=== PATIENT | female | born 1945 | race Caucasian/White ===

== ENCOUNTER → 2017-08-19 10:22 | Outpatient (CLI) | payer MEDICARE, SELFPAY ==
--- NOTE | 2017-08-19 10:26 | HPBI_ITS ---
MAMMOGRAPHY - BILATERAL SCREENING REASON FOR EXAM: Female, 71 years old. Routine annual screening examination. PERTINENT HISTORY: Sister with breast cancer. Aunt with breast cancer. Remote left excisional breast biopsy. TECHNIQUE: Digital bilateral breast darling (3D mammographic acquisition) in the CC and MLO projections. 2-D mediolateral oblique (MLO) and craniocaudad (CC) views of both breasts were obtained. CAD: Full Field Digital Mammography with Computer Added Detection was performed. COMPARISON: Comparison is made with prior study dated September 06, 2015 and April 14, 2014. FINDINGS: Breast Composition: There are scattered areas of fibroglandular density. There now is evidence of a 1.2 cm x 1.4 cm spiculated nodular density in the upper slightly lateral portion of the right breast. Amorphous calcifications are seen within this nodule. Correlation with ultrasound is recommended. The remainder of the examination is unchanged. No other significant abnormalities are identified. HPBI/SCREENING MAMM (CAD), BILAT IMPRESSION: New spiculated nodular density in the right breast as described. Correlation with ultrasound is recommended. Following ultrasound, a biopsy would be recommended. ASSESSMENT CATEGORY: BIRADS Category 0: Incomplete. Need additional imaging evaluation. A letter regarding these results will be sent to the patient by the facility within 30 days. Approximately 10% of breast cancers are not detected by mammography. A normal mammogram should not delay biopsy of a clinically suspicious abnormality. [id number] Electronically Signed: Yared Chan MD at 12:24 EST Tel [phone], Service support ,
== END ==
PROVIDERS: Family Provider Internal Medicine; PCP Internal Medicine; Visit Provider Internal Medicine
DX: Z12.31 Encounter for screening mammogram for malignant neoplasm of breast (principal)
CPT/HCPCS: 77063; 77067

== ENCOUNTER → 2017-08-20 10:48 | Outpatient (CLI) | payer MEDICARE, SELFPAY ==
--- NOTE | 2017-08-20 10:53 | US_ITS ---
STUDY: ULTRASOUND BREAST - right REASON FOR EXAM: Female, 71 years old. Abnormal screening mammogram. TECHNIQUE: Axial and longitudinal images of the right breast were performed with a high resolution ultrasound transducer. COMPARISON: Comparison is made with prior mammogram dated August 19, 2017. FINDINGS: Right Breast: There is a 1.1 cm x 0.9 cm x 0.9 cm hypoechoic spiculated nodule at 11:00 position breast at 3 cm from the nipple. Calcifications are seen within it. A biopsy is recommended. Adjacent to this, there is a 4 mm x 4 mm x 3 mm cyst. US/Breast Limited Unilateral IMPRESSION: The mammographic abnormality corresponds to a hypoechoic irregular nodule. A biopsy is recommended for further evaluation. ASSESSMENT CATEGORY: BIRADS Category 4: Suspicious - Biopsy Should Be Considered. A letter regarding these results will be sent to the patient by the facility within 30 days. Electronically Signed: Yared Chan MD at 12:09 EST Tel [phone], Service support ,
== END ==
LOC: USHP 10:51
PROVIDERS: Family Provider Internal Medicine; PCP Internal Medicine; Visit Provider Internal Medicine
DX: N63.10 Unspecified lump in the right breast, unspecified quadrant (principal)
CPT/HCPCS: 76642

== ENCOUNTER → 2017-09-03 10:13 | Outpatient (CLI) | payer MEDICARE, SELFPAY ==
[2017-08-30 09:43] VITALS: BP 127/70; BMI 26.9
== END ==
PROVIDERS: Family Provider Internal Medicine; PCP Internal Medicine; Visit Provider Surgery
DX: Z53.8 Procedure and treatment not carried out for other reasons (principal)

== ENCOUNTER → 2017-09-12 09:30 | Outpatient (CLI) | payer MEDICARE, SELFPAY ==
--- NOTE | 2017-09-12 | IMM_PTH ---
PATIENT: ALLISON MAHER LOC: U#:[id number] AGE/SX: 79/F ROOM: RE09/12/[address]: Dr. Khalif Shell MD : 1945 BED: DIS: SPEC #: [id number] RECD: 09/13/17 13:28 STATUS: ZEV REAna #: [id number] KEAGAN: 09/12/17 00:[address]: Khalif Shell DEPT: IMMUNOHISTOCHEMISTRY RECD BY: Chiqui Cancino ENTERED: 09/13/17 13:29 SP TYPE: IMMUNO OTHR DR: Dr. Jessica Aguero DO Tissues: Right breast, NOS Procedures: CK5-6 (add) CK8 (add) E-CAD (add) HER2 ALBERTINA (add) KI-67 (add) P53 (add) IA (add) ER (initial) PHYSICIAN & INSTITUTION [place] [address] SPECIMEN INFORMATION: Tissue Source: Right breast nodule Clinical Info: Right breast nodule Specimen Number: [id number] CPT code: 93438, 04900 x4, 04403 x3 METHODOLOGY: Deparaffinized sections of prefer/formalin-fixed tissue or PAP/DQ stained slides are incubated with monoclonal/polyclonal antibodies/oligonucleotide probes. Localization is made via biotin free immunoperoxidase method. Appropriate controls are performed and reacted as expected. Results on target cell population are indicated in the following table: RESULTS: ANTIBODY / CLONE RESULT E-Cad (ECH-6) positive CK8 ([id number]) positive CK5-6 (D5 & 1684) negative Ki-67 (30-9) positive, low P53 (DO-7) negative MORPHOMETRIC ANALYSIS ER (clone 6F11) >95%, strong IA (clone 16/1E2) 21%, moderate Her-2Neu (clone CB11) 1+ The prognostic test for HER2 is performed on formalin-fixed paraffin embedded tissue. A 3+ (positive) staining pattern is defined as intense, homogeneous, complete, circumferential membranous staining in >10% of contiguous tumor cells. A similar weak (2+) staining pattern is interpreted as equivocal. QUINCY follow-up testing is recommended for all equivocal cases. Positivity/negativity for ER/IA is reported if > or < 1% of the tumor cells are immuno- reactive, respectively. The ASCO/CAP criteria is used for scoring. Reference: Journal of Clinical Oncology, 2013; 31:1946-1561 & 2010; 16:4982-2313. Duration of fixation: 8.5 Hrs; Sample Adequate: Yes. These assays have not been validated on decalcified tissues. Results should be interpreted with caution given the likelihood of false negativity on decalcified specimens. These tests were developed and their performance characteristics determined by [facility]. They may not have been cleared or approved by the U.S. Food and Drug Administration. The FDA has determined that such clearance or approval is not necessary. INTERPRETATION: Right breast nodule, biopsy: Invasive ductal carcinoma, nuclear grade 2. Positive for estrogen receptors (favorable prognostic indicator). Positive for progesterone receptors (favorable prognostic indicator). Negative for overexpression of OVZ7srp. SJ:alexis 09/16/17
--- NOTE | 2017-09-12 09:32 | US_ITS ---
STUDY: ULTRASOUND BREAST - RIGHT REASON FOR EXAM: Female, 71 years old. Ultrasound guided right breast biopsy. TECHNIQUE: Axial and longitudinal images of the RIGHT breast were performed with a high resolution ultrasound transducer. COMPARISON: Comparison is made with prior ultrasound of the breasts dated generally . FINDINGS: RIGHT Breast: Under direct sonographic guidance, the surgeon performed core biopsies of the hypoechoic irregular nodule measuring 1.2 cm x 1 cm and 0.8 cm at 11:00 breast at 3 cm from nipple. US/US Breast Biopsy 1st Lesion IMPRESSION: Successful ultrasound-guided core biopsy of the suspicious nodule at the 11:00 position breast at 3 cm from nipple. Electronically Signed: Yared Chan MD at 11:33 EST Tel [phone], Service support ,
--- NOTE | 2017-09-12 10:45 | BRBX_PTH ---
PATIENT: ALLISON MAHER LOC: U#:[id number] AGE/SX: 79/F ROOM: RE09/12/[address]: Dr. Khalif Shell MD : 1945 BED: DIS: SPEC #: [id number] RECD: 09/12/17 11:27 STATUS: ZEV LELAND #: [id number] KEAGAN: 09/12/17 10:[address]: Khalif Shell DEPT: SURGICAL PATHOLOGY RECD BY: Allen Foy ENTERED: 09/12/17 11:28 SP TYPE: BREAST BX OTHR DR: Dr. Jessica Aguero DO Tissues: Right breast, NOS Procedures: Surgery Specimen Level IV HEADER OPERATION: Breast biopsy, right PRE-OP DIAGNOSIS: Breast nodule, right TISSUE SUBMITTED: Breast nodule, right ISCHEMIC TIME: 60 seconds FIXATION TIME: 8.5 hours MICROSCOPIC DIAGNOSIS Right breast nodule, core biopsy: Invasive ductal carcinoma, nuclear grade 2 (0.8 cm in greatest length). YADIRA:alexis 09/13/17 COMMENT Immunohistochemistry ([id number]) supports the above diagnosis. ER/ME/Qnk6xlc studies are being performed on sections of tumor and the results from this study will be reported separately ([id number]). MICROSCOPIC DESCRIPTION Slides are reviewed. GROSS DESCRIPTION Received in fixative is one container labeled with the patient's name and designated right breast. The specimen consists of multiple fragments of callejas-yellow fibroadipose tissue that in aggregate measure 2.5 x 0.5 x 0.1 cm. The entire specimen is submitted in one cassette. / YADIRA:alexis 09/12/17 TC:0 CPT: 28998 ADDENDUM ADDENDUM ADDENDUM ADDENDUM ADDENDUM ADDENDUM ADDENDUM ADDENDUM 10/18/2017 14:55 ADDENDUM 10/18/2017 14:55 ADDENDUM 10/18/2017 14:55 ADDENDUM 10/18/2017 14:55 ADDENDUM 10/18/2017 14:55 An order for Oncotype testing was received from Dr. Spicer. This necessitated case review, block and slide selection by pathologist at [facility]. Breast Cancer Recurrence Score = 31 Results of the complete Oncotype testing ([facility] report) are viewable in EMR under: Reports - Pathology - Lab Pathology Report, Scanned.
--- NOTE | 2017-09-12 11:12 | PCM.OPRPT ---
Problem List (1) Abnormal finding on mammography Status: Acute Report of Operation Date of Procedure: 09/12/17 Pre-Operative Diagnosis: r92.8 abnormal mammogram to right breast Post-Operative Diagnosis: Same Surgery/Procedure Performed:: 27221 ultrasound-guided handheld mammotome breast biopsy to right breast Type of Anesthesia:: Local Description of Procedure: Patient's right breast was ultrasound in the upper outer quadrant. Lesion was identified. I prepped the breast with chlorhexidine. I injected local on the skin and under ultrasound guidance I injected local posterior to the lesion. A skin joon was made. Under ultrasound guidance I directed the hand-held mammotome needle posterior to the lesion. I took numerous biopsies of this lesion. Under ultrasound guidance I placed a small titanium clip. Sterile dressings were applied and the patient tolerated the procedure well. - Admit VTE Documentation VTE Present on Admission: No VTE Mechan Device Prophylaxis: None VTE Pharm Prophylaxis ordered?: No Reason prophylaxis not ordered:: Treatment Not Indicated
--- NOTE | 2017-09-12 11:16 | OP.PCM_ITS ---
Problem List (1) Abnormal finding on mammography Status: Acute Report of Operation Date of Procedure: 09/12/17 Pre-Operative Diagnosis: r92.8 abnormal mammogram to right breast Post-Operative Diagnosis: Same Surgery/Procedure Performed:: 33381 ultrasound-guided handheld mammotome breast biopsy to right breast Type of Anesthesia:: Local Description of Procedure: Patient's right breast was ultrasound in the upper outer quadrant. Lesion was identified. I prepped the breast with chlorhexidine. I injected local on the skin and under ultrasound guidance I injected local posterior to the lesion. A skin joon was made. Under ultrasound guidance I directed the hand-held mammotome needle posterior to the lesion. I took numerous biopsies of this lesion. Under ultrasound guidance I placed a small titanium clip. Sterile dressings were applied and the patient tolerated the procedure well. - Admit VTE Documentation VTE Present on Admission: No VTE Mechan Device Prophylaxis: None VTE Pharm Prophylaxis ordered?: No Reason prophylaxis not ordered:: Treatment Not Indicated
== END ==
PROVIDERS: Family Provider Internal Medicine; PCP Internal Medicine; Visit Provider Surgery
DX: R92.0 Mammographic microcalcification found on diagnostic imaging of breast (principal); N63.10 Unspecified lump in the right breast, unspecified quadrant
CPT/HCPCS: 19083; 88305; 88341; 88342

== ENCOUNTER 2017-09-25 07:12 | Day surgery (SDC) | payer MEDICARE, SELFPAY ==
[2017-09-25 07:40] VITALS: BP 125/67; PULSE 63; RESP 16; TEMP 36.4; O2SAT 100; BMI 27.1
[2017-09-25 08:01] LABS: Bedside Glucose 94 mg/dL (70-110)
--- NOTE | 2017-09-25 09:23 | PCM.OPRPT ---
Problem List (1) Encounter for screening for malignant neoplasm of colon Status: Acute Report of Operation Date of Procedure: 09/25/17 Pre-Operative Diagnosis: z12.11 screening colonoscopy Post-Operative Diagnosis: Same Surgery/Procedure Performed:: 04049 colonoscopy Type of Anesthesia:: MAC Anesthesiologist: Mario Garay Description of Procedure: Patient was brought into the endoscopy suite placed in the left lateral decubitus position. She was given graded anesthesia. Scope was inserted into the rectum and directed through the sigmoid colon, descending colon, transverse colon, ascending colon, to the cecum. Operative findings: 1. Cecum: Normal appearance no mass lesions normal ileocecal valve. 2. Ascending colon: Normal appearance no mass lesions. 3. Transverse colon: Normal appearance no mass lesions. 4. Descending colon: Normal appearance no mass lesions. Patient was noticed to have numerous diverticula 5. Sigmoid colon: Normal appearance no mass lesions. Patient was noted to have numerous diverticulum 6. Rectum: Normal appearance no mass lesions retroflexion did reveal a few internal hemorrhoids which were not actively bleeding. The scope was withdrawn digital rectal exam was performed showing no masses within her anus. The patient's prep was extremely poor. Significant amount of liquid as well as solid stool was located throughout the colon. Nevertheless I was able to get to the cecum however visualization of any polyps smaller than 6 mm would not have been obtained. Patient will need another colonoscopy in 5 years given the patient's prep being so poor. - Admit VTE Documentation VTE Present on Admission: No VTE Mechan Device Prophylaxis: None VTE Pharm Prophylaxis ordered?: No Reason prophylaxis not ordered:: Treatment Not Indicated
[2017-09-25 09:27] VITALS: BP 114/70; BP 125/67; PULSE 80; RESP 19; TEMP 36.6; O2SAT 98
[2017-09-25 09:32] VITALS: BP 105/69; BP 125/67; PULSE 75; RESP 17; O2SAT 98
[2017-09-25 09:37] VITALS: BP 118/53; BP 125/67; PULSE 67; RESP 16; O2SAT 97
[2017-09-25 09:42] VITALS: BP 110/60; BP 125/67; PULSE 63; RESP 16; TEMP 36.7; O2SAT 97
[2017-09-25 10:45] VITALS: BP 125/67
== END 2017-09-25 10:46 | disposition home or self-care (01) ==
LOC: EN 07:12 → AC 07:14
PROVIDERS: Family Provider Internal Medicine; PCP Internal Medicine; Visit Provider Surgery
PROC: 0DJD8ZZ Inspection of Lower Intestinal Tract, Via Natural or Artificial Opening Endoscopic (ICD-10-PCS; CPT 45378; principal; 2017-09-25 08:25)
DX: Z12.11 Encounter for screening for malignant neoplasm of colon (principal); K57.30 Diverticulosis of large intestine without perforation or abscess without bleeding; K64.8 Other hemorrhoids; E04.2 Nontoxic multinodular goiter; C50.919 Malignant neoplasm of unspecified site of unspecified female breast; D64.9 Anemia, unspecified; J45.909 Unspecified asthma, uncomplicated; I25.10 Atherosclerotic heart disease of native coronary artery without angina pectoris; J44.9 Chronic obstructive pulmonary disease, unspecified; K21.9 Gastro-esophageal reflux disease without esophagitis; E78.00 Pure hypercholesterolemia, unspecified; G47.30 Sleep apnea, unspecified; E66.9 Obesity, unspecified; I73.9 Peripheral vascular disease, unspecified; Z87.19 Personal history of other diseases of the digestive system; I10 Essential (primary) hypertension; E11.9 Type 2 diabetes mellitus without complications; M19.90 Unspecified osteoarthritis, unspecified site; Z78.0 Asymptomatic menopausal state; Z86.718 Personal history of other venous thrombosis and embolism; Z86.711 Personal history of pulmonary embolism; Z79.84 Long term (current) use of oral hypoglycemic drugs; Z79.899 Other long term (current) drug therapy
CPT/HCPCS: G0121; 82962; J7120; J1610

== ENCOUNTER 2017-10-02 13:56 | Observation (INO) | payer MEDICARE, SELFPAY ==
--- NOTE | 2017-09-25 07:22 | EKG12_ITS ---
Test Reason : PRE OP Blood Pressure : / mmHG Vent. 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
[2017-09-25 07:37] LABS: Hematocrit 38.3 % (37-47); Hemoglobin 12.4 g/dl (12.0-15.0); Mean Corp Hgb Conc 32.4 g/gl (32-36); Mean Corpuscular Hgb 29.7 pg (27.0-32.0); Mean Corpuscular Volume 91.6 fL (81-99); Mean Platelet Vol. 8.7 fl (6.2-12.0); Platelet Count 261 K/mm3 (150-450); RBC Distribution Width CV 12.9 % (11.6-14.6); RBC Distribution Width SD 42.3 fl (35.1-43.9); Red Blood Count 4.18 M/mm3 (4.2-5.4); White Blood Count 6.1 K/mm3 (4.4-11.0)
[2017-09-25 07:39] LABS: Scan Indicated on CBC? Y/N NO
[2017-09-25 08:00] LABS: Anion Gap 7 (5-15); BUN 17 mg/dL (7-18); BUN/Creat Ratio 28.1 RATIO (10-20); Calcium,Total 8.9 mg/dL (8.5-10.1); Chloride 107 mmol/L (98-107); EST Glomerular Filtration Rate 103 mL/min (>60); Est Glom Filt Rate - Afr Amer 125 mL/min (>60); Glucose 101 mg/dL (74-106); Potassium 3.5 mmol/L (3.5-5.1); Sodium Level 142 mmol/L (136-145)
[2017-09-25 09:01] LABS: Hemoglobin A1c 5.3 % (4.2-6.3)
[2017-10-01] VITALS (19 sets, daily range): BP systolic 104–138; BP diastolic 52–107; PULSE 65–78; RESP 14–18; TEMP 36.3–37.2; O2SAT 97–100; BMI 27.0
--- NOTE | 2017-10-01 | IMM_PTH ---
PATIENT: ALLISON MAHER LOC: MS2 U#:[id number] AGE/SX: 71/F ROOM: [facility] [id number] RE10/02/[address]: Dr. Khalif Shell MD : 1945 BED: 1 DIS: 10/03/2017 SPEC #: [id number] RECD: 10/03/17 11:28 STATUS: ZEV REQ #: [id number] KEAGAN: 10/01/17 00:[address]: Khalif Shell DEPT: IMMUNOHISTOCHEMISTRY RECD BY: Chiqui Cancino ENTERED: 10/03/17 11:29 SP TYPE: IMMUNO OTHR DR: Dr. Jessica Aguero, DO Tissues: A - Axillary lymph node, NOS Procedures: CK7 (add) Pankeratin (initial) PHYSICIAN & INSTITUTION [place] [address] SPECIMEN INFORMATION: Tissue Source: A ? [place] nodes right breast Clinical Info: Malignant neoplasm right breast Specimen Number: [id number] CPT code: 82197, 26294 METHODOLOGY: Deparaffinized sections of prefer/formalin-fixed tissue or PAP/DQ stained slides are incubated with monoclonal/polyclonal antibodies/oligonucleotide probes. Localization is made via biotin free immunoperoxidase method. Appropriate controls are performed and reacted as expected. Results on target cell population are indicated in the following table: RESULTS: ANTIBODY / CLONE RESULT Block A1 AE1-3 (AE1/AE3/PCK26) negative CK7 (OV-TL12/30) negative These tests were developed and their performance characteristics determined by [facility]. They may not have been cleared or approved by the U.S. Food and Drug Administration. The FDA has determined that such clearance or approval is not necessary. INTERPRETATION: A. Right axillary sentinel lymph nodes, biopsy: Two out of two lymph noes, negative for metastatic carcinoma. SJ:alexis 10/04/17
--- NOTE | 2017-10-01 | AXNB_PTH ---
PATIENT: ALLISON MAHER LOC: MS2 U#:[id number] AGE/SX: 71/F ROOM: [facility] [place] RE10/02/[address]: Dr. Khalif Shell MD : 1945 BED: 1 DIS: 10/03/2017 SPEC #: [id number] RECD: 10/01/17 15:01 STATUS: ZEV REAna #: [id number] KEAGAN: 10/01/17 00:[address]: Khalif Shell DEPT: SURGICAL PATHOLOGY RECD BY: Chiqui Cancino ENTERED: 10/01/17 16:54 SP TYPE: AX NODE BX OTHR DR: Dr. Jessica Aguero, DO Tissues: Axillary lymph node, NOS Procedures: Frozen Section (charge) Surgery Specimen Level V HEADER OPERATION: Mastectomy, sentinel node, possible axillary node dissection PRE-OP DIAGNOSIS: Malignant neoplasm right breast TISSUE SUBMITTED: A ? [place] nodes right breast ? sent for frozen section, B ? Right breast FROZEN SECTION DIAGNOSIS A. Right axillary sentinel lymph nodes, biopsy: Two out of two lymph nodes, negative for carcinoma. AM:alexis 10/01/17 MICROSCOPIC DIAGNOSIS A. Right axillary sentinel lymph nodes, biopsy: Two out of two lymph nodes, negative for metastatic carcinoma. B. Right breast, mastectomy: Invasive ductal carcinoma. See cancer summary below. INVASIVE BREAST CANCER SUMMARY: Specimen ? total breast (including nipple and skin). Procedure ? total mastectomy (including nipple and skin). Lymph node sampling ? sentinel lymph nodes Specimen integrity ? single intact specimen Specimen laterality - right Tumor size ? 1.8 x 1.5 x 1.2 cm Tumor focality ? single focus of invasive carcinoma Macroscopic and Microscopic extent of tumor: Skin ? invasive carcinoma does not invade into the dermis or epidermis. Nipple ? ductal carcinoma in situ does not involve the nipple epidermis. Skeletal muscle ? no skeletal muscle present. 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 Extensive intraductal component (EIC) - negative Estimated size (extent) of DCIS - Ductal carcinoma in situ comprises <5% of the total tumor volume. It is present in the area of invasive ductal carcinoma. Number of blocks with DCIS - 2 Number of blocks examined - 12 Architectural pattern - solid Nuclear grade - 3 Necrosis ? not identified Lobular carcinoma in situ (LCIS) - not identified Histologic type of invasive carcinoma ? invasive ductal carcinoma (no special type) Histologic Grade (Humza grade): Glandular/tubular differentiation - score 3 Nuclear pleomorphism - score 3 Mitotic count ? score 1 Overall grade - 2 (score of 7) Margins: Margins uninvolved by invasive carcinoma and ductal carcinoma in situ. Invasive carcinoma and ductal carcinoma in situ are 0.5 cm away from the closest posterior margin. Treatment effect: Response to presurgical (neoadjuvant) therapy - no known presurgical therapy. Lymph-Vascular invasion ? not identified Dermal lymph-vascular invasion ? not identified Lymph nodes: Number of sentinel lymph nodes examined - 2 Total number of lymph nodes examined (sentinel and nonsentinel) - 2 Number of lymph nodes with macrometastases, micrometastases and isolated tumor cells - 0 Method of evaluation of sentinel lymph nodes - H & E, multiple levels and IHC. Distance metastasis ? not applicable Additional pathologic findings ? fibrocystic changes, adenosis and intraductal hyperplasia with atypia. Changes consistent with previous biopsy site. Ancillary studies - previously performed on section of tumor ([id number] / [id number]). ER ? positive (<95%, strong) FL ? positive (21%, moderate) Her2 meena ? negative (1+) Her2 by dual QUINCY ? not performed Microcalcifications ? present in non-neoplastic tissue Clinical history - Please make reference to previous specimen ([id number]) right breast nodule, core biopsy with diagnosis of invasive ductal carcinoma. PATHOLOGIC STAGE: pT1c pN0(sn) Mx The above summary is in compliance with [employer] [place] [employer] (CAP) Cancer Protocols Checklist and [place] Joint Committee on Cancer (AJCC), Staging Manual, 8th Ed. SJ:alexis 10/03/17 COMMENT A. The lymph nodes are negative for metastatic carcinoma on multiple H & E levels and immunohistochemical stains for cytokeratins ([id number]). MICROSCOPIC DESCRIPTION Slides are reviewed. GROSS DESCRIPTION A - Received fresh for frozen section consultation labeled with the patient's name is a specimen designated right breast sentinel lymph nodes. The specimen consists of two bluish-callejas ovoid fragments ranging in size from 0.5 to 1.1 cm in greatest dimension. The smaller nodule is inked in black ink. Both nodules are submitted in their entirety in one block for frozen section consultation. / AM:alexis 10/01/17 B - Received in fixative is one container labeled with the patient's name and designated right breast. The specimen consists of a mastectomy specimen measuring 30 x 28 x 4 cm and weighing 948 gm. The anterior portion contains an ellipse of unremarkable skin with nipple and areola. The skin measures 26 x 13 cm. The specimen is inked as follows: superior ? blue, inferior ? green and posterior ? black. Serial sections reveal a spiculated mass. The mass cuts with a gritty sensation and is white-callejas in color and measures 1.8 x 1.5 x 1.2 cm and is located 0.5 cm from the closest (posterior) margin of excision. The remainder of the breast parenchyma is callejas-yellow and interrupted focally by dense fibrous streaks. No other mass lesions are identified. Communication Center Coordinator sections are submitted as follows: 1 ? nipple, areola and perpendicular posterior margin, 2 ? perpendicular superior and inferior margins, 3 ? perpendicular medial margin, 4 ? perpendicular lateral margin, 5-8 ? tumor with #5 containing inked adjacent perpendicular posterior margin, 9-12 ? risk control field representative sections of uninvolved breast parenchyma. / AM:alexis 10/01/17 TC:0 CPT: 91183 x2, 39771
[2017-10-01 13:21] LABS: Bedside Glucose 90 mg/dL (70-110)
[2017-10-01] MEDS: Cefazolin 2 GM in 0.9% Normal Saline 100 ML IV (14:15)
--- NOTE | 2017-10-01 14:18 | PCM.OPRPT ---
Problem List (1) Malignant neoplasm of central portion of right female breast Status: Acute Qualifiers: Estrogen receptor status: positive Qualified Code(s): C50.111 - Malignant neoplasm of central portion of right female breast; Z17.0 - Estrogen receptor positive status [ER+] Report of Operation Date of Procedure: 10/01/17 Pre-Operative Diagnosis: c50.111 right breast cancer central breast. z17.0 estrogen receptor positive Post-Operative Diagnosis: Same Surgery/Procedure Performed:: 24900 injection of 5 cc of Lymphazurin blue. 52584 sentinel [place]. [address] mastectomy simple complete Type of Anesthesia:: General Anesthesiologist: Junior Shepherd Specimen's removed: 1. Right breast. 2. 2 sentinel lymph nodes (all negative) Estimated Blood Loss (mL): 50 cc Description of Procedure: Patient was brought into the operating room and placed in the supine position. Under excellent general endotracheal intubation 5 cc of Lymphazurin blue were injected circumareolar LEEP. The breast was massaged for 5 minutes then sterilely prepped and draped. Elliptical incision was made on the breast. Flaps were created with the plasma blade superior to the clavicle medially to the sternum inferiorly to the rectus abdominis muscle. I rotated the breast off the pectoralis major muscle with the plasma blade. I came to the lateral border of the pectoralis major muscle entered the clavipectoral fascia and dissected down until identified 2 blue lymph nodes. I remove these with a harmonic dissector and sent them to pathology for frozen section which confirmed lymph nodes both of them being benign. I remove the breast laterally down to the latissimus dorsi muscle and sent it to pathology for permanent sectioning. I irrigated out my wound I had excellent hemostasis I placed 215 round Aashish-Portillo drains into the wound suturing them to the skin with a 3-0 nylon. The flaps were then sutured together with deep dermal stitches of 3-0 Vicryl in a running 4-0 Monocryl. Steri-Strips are applied. Sterile dressings were applied. Eros wrap was applied. Patient tolerated the procedure well. - Admit VTE Documentation VTE Present on Admission: No VTE Mechan Device Prophylaxis: SCD's VTE Pharm Prophylaxis ordered?: No Reason prophylaxis not ordered:: Treatment Not Indicated
[2017-10-01] MEDS: Isosulfan Blue 1% 5 ML Vial (14:22)
[2017-10-01] MEDS: Lactated Ringers 1,000 ML 75 ML IV ×2 (16:52→21:03)
[2017-10-01 17:10] LABS: Bedside Glucose 80 mg/dL (70-110)
[2017-10-01] MEDS: HYDROmorphone PCA 0.2 MG/ML 100 ML BAG 20 MG IV (18:36)
[2017-10-01] MEDS: oxyCODONE 5 MG Tablet PO (21:03)
[2017-10-01] MEDS: Pravastatin 20 MG Tablet PO (22:10)
[2017-10-02] VITALS (14 sets, daily range): BP systolic 107–124; BP diastolic 50–61; PULSE 69–91; RESP 14–16; TEMP 36–37.6; O2SAT 95–100
[2017-10-02] MEDS: oxyCODONE 5 MG Tablet PO ×5 (01:13→21:04)
--- NOTE | 2017-10-02 07:28 | NURSING ---
Adrien DIRECTOR OF CHANNEL MARKETING d/c'd and wasted with MCKENNA Cho
--- NOTE | 2017-10-02 07:43 | PCM.DC.BS ---
Discharge Diet: No Restrictions Discharge Activity: May Not Drive - for 2-3 days or while taking narcotic pain meds. May shower in (days): 1 Lifting Restrictions: 10 pounds for 1 week. Call your doctor if your incision/area has: Continuous Slow Oozing, Sudden Increased Bleeding Call your doctor if you observe: Fever of 101 or Higher Suture Line Care: Avoid Pulling/Pushing, Avoid Pinching/Bending Remove Dressing in (days):: 1 - Remove bulky dressing tomorrow. May leave any opsite dressing for 3-4 days. Keep dressing in place until your follow-up appointment. Cleanse incision/area with: Keep Dressing Clean & Dry Additional Dressing/Incision Instructions:: Keep dressing in place until your follow-up appointment. Allergies/Adverse Reactions: Allergies niacin Allergy (Intermediate, Verified 09/23/17 13:18) Swelling Medications to take at Discharge Albuterol Aerosols [Ventolin Aerosols] 2.5 mg INHALATION Q4H PRN PRN 06/16/13 Albuterol IH (ProAir) [Proair Hfa] 2 puff INHALATION Q4H PRN PRN 06/16/13 Lisinopril/Hydrochlorothiazide [Zestoretic 05/02.5 Tablet] 1 tab PO DAILY 06/16/13 Omeprazole [Prilosec] 20 mg PO DAILY 06/16/13 Pravastatin [Pravachol] 20 mg PO QHS 06/16/13 Zolpidem Tartrate [Ambien Cr] 12.5 mg PO QHS PRN PRN 12/15/13 Hydrocodone Bitart/Apap 5-325 [[place] 5/325] 1 - 2 tab PO Q4H PRN PRN #30 tab 12/30/15 diltiazem CD 120 mg capsule,extended release 24 hr 120 mg PO QDAY cap 08/30/17 potassium chloride ER 10 mEq capsule,extended release 10 meq PO QDAY 08/30/17 Metformin HCl 1,000 mg PO DAILY 09/23/17 Oxycodone [Oxyir] 5 - 10 mg PO Q4H PRN PRN #30 tab 10/02/17 The following prescriptions were given: Oxycodone [Oxyir] 5 - 10 mg PO Q4H PRN PRN #30 tab PRN Reason: Pain Primary Care Physician: Jessica Aguero DO [Primary Care Provider] - Please Follow Up With: Romina Mendes PA-C - [phone] When: Saturday; 10/07 Please Follow Up With: Khalif Shell MD - [phone] When: Saturday; 10/09
--- NOTE | 2017-10-02 07:46 | PCM.PN.SRG ---
Patient Problems: Active and Suspected Problems (Last Reviewed 09/23/17 @ 09:40 by Khalif Shell MD) Malignant neoplasm of central portion of right female breast (Acute) Subjective: Patient was evaluated this morning resting comfortably in bed. She notes back pain/discomfort, however has a history of back pain. Patient notes some discomfort of the right upper chest. She notes she is hesitant to go home secondary to not having help. She denies nausea, vomiting. - Physical Exam General: Alert, Oriented x3, Cooperative Skin: Incision - Right mastectomy incision- c/d/i. Minimal amount of ecchymosis. No signs of infection or erythema noted. MARY drains intact. SA fluid noted Vital Signs Temp Pulse Resp BP Pulse Ox 98 F 91 16 111/61 99 10/02/17 06:00 10/02/17 06:00 10/02/17 06:00 10/02/17 06:00 10/02/17 06:00 Oxygen Flow Rate (L/min) 2 Oxygen Delivery Method Room Air Weight: 162 lb 4.163 oz Body Mass Index (BMI) 27.0 Finger Stick Blood Glucose 80 Intake and Output for Last 24 Hours 09/30/17 10/01/17 10/02/17 23:59 23:59 23:59 Intake Total 1500 / 1500 1531 / 1531 Output Total 80 / 80 1065 / 1065 Balance 1420 / 1420 466 / 466 POC Glucose 10/01/17 10/01/17 16:58 12:51 POC Glucose 80 90 Assessment/Plan Active and Suspected Problems (Last Reviewed 09/23/17 @ 09:40 by Khalif Shell MD) Malignant neoplasm of central portion of right female breast (Acute) I am following thi spatient in conjunction with Dr. Shell Impression: Right breast cancer. S/p right mastectomy with sentinel lymph node biopsy Consult case management for discharge planning Probable discharge today
[2017-10-02] MEDS: Lactated Ringers 1,000 ML 75 ML IV (10:07)
[2017-10-02] MEDS: Pantoprazole Sodium 20 MG Tablet PO (10:09)
[2017-10-02] MEDS: Lisinopril 10 MG Tablet PO (10:09)
[2017-10-02] MEDS: HYDROCHLOROTHIAZIDE 12.5 MG CAPSULE PO (10:09)
[2017-10-02] MEDS: dilTIAZem CD 120 MG Capsule PO (10:11)
[2017-10-02] MEDS: 0.9% NaCl Peripheral Flush Adult/Peds IV ×2 (10:19→16:07)
--- NOTE | 2017-10-02 13:49 | CASEMGMT ---
RN CM note. Pt lives alone. Attempted to speak with pt today. She is very sleepy and not feeling well. Deferred assessment. Per physician and nursing, pt may need HHS or SNF on dc. SW referral made for possible SNF. PT/OT ordered, were not able to complete assessment due to pt being sleepy this am. Pt receiving Oxyir 10 mg- 3 doses today. DC PLAN: undetermined @ this time. Huy LUCIO RN AC
--- NOTE | 2017-10-02 15:35 | CASEMGMT ---
Social Work Referral received as pt stating to physician that she does not believe she will be able to return home. SW met with pt and spouse Jose in room and introduced self and role of SW. Pt stating she is feeling sick and cannot talk to SW. Deferred conversation to . SW starting speaking with to assess home situation and pt would speak up and answer questions. Assessment limited as pt continuously stating she does not feel well. Pt lives at home with her spouse in a one story home. Pt would assist with showers but pt could complete all other ADLs and IADLs independently. Questioning pt if she feels she can return home. Pt does not answer but spouse stating they will wait until tomorrow to decide. SW explained that process needs to be started as insurance authorization does take some time. Provided list of area SNFS and pt does not want to look at this. He states she has been in [facility] before and would want to go back there. Pt confirmed this is correct. ALFONSO asked permission to call [facility] for bed availability and to make referral explaining that it can be cancelled if pt is feeling better tomorrow and is able to return home. Pt and are agreeable to this plan. Phone call to Symone at [facility]. They do have beds available. Referral faxed and will await determination if they can accept. SABI Salcido
[2017-10-02] MEDS: Ondansetron 4 MG/2 ML Vial IV (16:07)
[2017-10-02] MEDS: Pravastatin 20 MG Tablet PO (21:04)
[2017-10-03 03:00] VITALS: BP 119/48; PULSE 90; RESP 16; TEMP 37.2; O2SAT 94
[2017-10-03] MEDS: Ondansetron ODT 4 MG Tablet PO ×2 (03:42→14:06)
[2017-10-03] MEDS: oxyCODONE 5 MG Tablet PO ×3 (03:52→14:06)
--- NOTE | 2017-10-03 07:48 | PCM.PN.SRG ---
Patient Problems: Active and Suspected Problems (Last Reviewed 09/23/17 @ 09:40 by Khalif Shell MD) Malignant neoplasm of central portion of right female breast (Acute) Subjective: Patient evaluated resting comfortably in bed. She notes pain has improved. She seemed very drowsy yesterday secondary to pain medication. She denies nausea, vomiting. She notes burping/belching. She notes feeling constipated. - Physical Exam General: Alert, Oriented x3, Cooperative Lungs: Clear to auscultation, Normal air movement Cardiovascular: Regular rate, No murmurs Abdomen: Hypoactive Bowel Sounds, Distended Skin: Incision - Right chets incision c/d/i. No erythema or infection noted. MARY drains intact with SA fluid. Vital Signs Temp Pulse Resp BP Pulse Ox 99 F 90 16 119/48 L 94 10/03/17 03:00 10/03/17 03:00 10/03/17 03:00 10/03/17 03:00 10/03/17 03:00 Oxygen Flow Rate (L/min) 2 Oxygen Delivery Method Nasal Cannula Weight: 162 lb 4.163 oz Body Mass Index (BMI) 27.0 Finger Stick Blood Glucose 80 Intake and Output for Last 24 Hours 10/01/17 10/02/17 10/03/17 23:59 23:59 23:59 Intake Total 1500 / 1500 2927 / 2927 400 / 400 Output Total 80 / 80 2031 / 2031 800 / 800 Balance 1420 / 1420 895 / 895 -400 / -400 Assessment/Plan Active and Suspected Problems (Last Reviewed 09/23/17 @ 09:40 by Khalif Shell MD) Malignant neoplasm of central portion of right female breast (Acute) I am following this patient in conjunction with Dr. Shell Impression: Right breast cancer. S/p right mastectomy with sentinel lymph node biopsy Awaiting discharge planning Ready for discharge today
[2017-10-03 09:00] VITALS: BP 100/55; PULSE 74; RESP 16; TEMP 36.6; O2SAT 95
[2017-10-03] MEDS: Lisinopril 10 MG Tablet PO (09:33)
[2017-10-03] MEDS: Magnesium Hydroxide 30 ML UDC PO (09:33)
[2017-10-03] MEDS: HYDROCHLOROTHIAZIDE 12.5 MG CAPSULE PO (09:33)
[2017-10-03] MEDS: metFORMIN HCl 1,000 MG Tablet 1000 MG PO (09:33)
[2017-10-03] MEDS: Pantoprazole Sodium 20 MG Tablet PO (09:34)
[2017-10-03] MEDS: dilTIAZem CD 120 MG Capsule PO (09:36)
[2017-10-03 10:01] VITALS: O2SAT 95; O2SAT 97
--- NOTE | 2017-10-03 12:12 | CASEMGMT ---
Addendum entered by Heena Brandt 10/03/17 12:38: ALFONSO spoke w/Symone at [facility], he is not certain that insurance will authorize pt but he will call to find out. SW will continue to follow. ANNA Vazquez, MANAGER PACKAGING Original Note: ALFONSO faxed PT evaluation to Symone at [facility]. SW spoke w/pt, confirmed she still feels she needs to go to SNF for a short time, SW explained will let her know if [facility] can take her and if insurance will approve. Pt states understanding, she states she would like to go just for a few days. Pt states she has been there before. ALFONSO called Symone, message left w/Bri letting her know that PT was faxed, asked Symone to call this SW regarding whether or not they can take pt. ALFONSO will continue to follow. ANNA Vazquez, MANAGER PACKAGING
--- NOTE | 2017-10-03 14:24 | PCM.DC.SUM ---
Discharge Date and Diagnosis - Problem List Patient Problems: Active and Suspected Problems (Last Reviewed 09/23/17 @ 09:40 by Khalif Shell MD) Malignant neoplasm of central portion of right female breast (Acute) Date of Admission: 10/01/17 Date of Discharge: 10/03/17 - Primary Discharge Diagnosis Active and Suspected Problems (Last Reviewed 09/23/17 @ 09:40 by Khalif Shell MD) Malignant neoplasm of central portion of right female breast (Acute) - Secondary Discharge Diagnosis Chronic Problems (Last Reviewed 09/23/17 @ 09:40 by Khalif Shell MD) [place] filter in place (Chronic) Obesity (Chronic) Hypertension (Chronic) GERD (Chronic) Asthma (Chronic) Hospital Course and Treatment Consultations 10/01/17 15:08 Consult: Onc/Wound/computer operations specialist Routine Comment: Operations: - - Right mastectomy with sentinel lymph node biopsy Summary of Care Provided: The patient is a 71 year old F who presented with right breast cancer. Dr. Shell performed a right mastectomy with sentinel lymph node biopsy on 10/01/17. Patient tolerated the procedure well. Patient had an uneventful hospitalization. Upon discharge, patient notes some pain which is well controlled by pain medication. She denies nausea, vomiting. She is tolerating a diet well. Patient does note back pain which she has had previous to her mastectomy procedure. Patient was evaluated by PT and OT who recommended additional rehabilitation. Case management has assisted in discharge planning. Patient will be going to [facility]. Patient will need to follow-up on Saturday for drain check and Saturday with Dr. Shell to review pathology. Discharge Diet: No Restrictions Discharge Activity: May Not Drive - for 2-3 days or while taking narcotic pain meds. May shower in (days): 1 Call your doctor if your incision/area has: Continuous Slow Oozing, Sudden Increased Bleeding Call your doctor if you observe: Fever of 101 or Higher Suture Line Care: Avoid Pulling/Pushing, Avoid Pinching/Bending Remove Dressing in (days):: 1 - Remove bulky dressing tomorrow. May leave any opsite dressing for 3-4 days. Keep dressing in place until your follow-up appointment. Cleanse incision/area with: Keep Dressing Clean & Dry Additional Dressing/Incision Instructions:: Keep dressing in place until your follow-up appointment. Home Medications: Medications to take at Discharge Albuterol Aerosols [Ventolin Aerosols] 2.5 mg INHALATION Q4H PRN PRN 06/16/13 Albuterol IH (ProAir) [Proair Hfa] 2 puff INHALATION Q4H PRN PRN 06/16/13 Lisinopril/Hydrochlorothiazide [Zestoretic /12.5 Tablet] 1 tab PO DAILY 06/16/13 Omeprazole [Prilosec] 20 mg PO DAILY 06/16/13 Pravastatin [Pravachol] 20 mg PO QHS 06/16/13 Zolpidem Tartrate [Ambien Cr] 12.5 mg PO QHS PRN PRN 12/15/13 Hydrocodone Bitart/Apap 5-325 [[place] 5/325] 1 - 2 tab PO Q4H PRN PRN #30 tab 12/30/15 diltiazem CD 120 mg capsule,extended release 24 hr 120 mg PO QDAY cap 08/30/17 potassium chloride ER 10 mEq capsule,extended release 10 meq PO QDAY 08/30/17 Metformin HCl 1,000 mg PO DAILY 09/23/17 Oxycodone [Oxyir] 5 - 10 mg PO Q4H PRN PRN #30 tab 10/02/17 Polyethylene Glycol 3350 [Miralax] 17 gm PO DAILY #20 packet 10/03/17 Following Prescrptions Were Given to Patient: Oxycodone [Oxyir] 5 - 10 mg PO Q4H PRN PRN #30 tab PRN Reason: Pain Polyethylene Glycol 3350 [Miralax] 17 gm PO DAILY #20 packet Primary Care Physician: Jessica Aguero DO [Primary Care Provider] - Please Follow Up With: Romina Mendes PA-C - [phone] When: Saturday; 10/07 Please Follow Up With: Khalif Shell MD - [phone] When: Saturday; 10/09 Disposition: Shelter facility Minutes spent on discharge:: 30 Patient Condition:: Stable Meaningful Use Info Meaningful Use Diagnoses (Choose all that apply): None applicable
--- NOTE | 2017-10-03 14:31 | DS.PCM_ITS ---
Discharge Date and Diagnosis - Problem List Patient Problems: Active and Suspected Problems (Last Reviewed 09/23/17 @ 09:40 by Khalif Shell MD) Malignant neoplasm of central portion of right female breast (Acute) Date of Admission: 10/01/17 Date of Discharge: 10/03/17 - Primary Discharge Diagnosis Active and Suspected Problems (Last Reviewed 09/23/17 @ 09:40 by Khalif Shell MD) Malignant neoplasm of central portion of right female breast (Acute) - Secondary Discharge Diagnosis Chronic Problems (Last Reviewed 09/23/17 @ 09:40 by Khalif Shell MD) J[place] filter in place (Chronic) Obesity (Chronic) Hypertension (Chronic) GERD (Chronic) Asthma (Chronic) Hospital Course and Treatment Consultations 10/01/17 15:08 Consult: Onc/Wound/oil field laborer Routine Comment: Operations: - - Right mastectomy with sentinel lymph node biopsy Summary of Care Provided: The patient is a 71 year old F who presented with right breast cancer. Dr. Shell performed a right mastectomy with sentinel lymph node biopsy on . Patient tolerated the procedure well. Patient had an uneventful hospitalization. Upon discharge, patient notes some pain which is well controlled by pain medication. She denies nausea, vomiting. She is tolerating a diet well. Patient does note back pain which she has had previous to her mastectomy procedure. Patient was evaluated by PT and OT who recommended additional rehabilitation. Case management has assisted in discharge planning. Patient will be going to [facility]. Patient will need to follow-up on Saturday for drain check and Saturday with Dr. Shell to review pathology. Discharge Diet: No Restrictions Discharge Activity: May Not Drive - for 2-3 days or while taking narcotic pain meds. May shower in (days): 1 Call your doctor if your incision/area has: Continuous Slow Oozing, Sudden Increased Bleeding Call your doctor if you observe: Fever of 101 or Higher Suture Line Care: Avoid Pulling/Pushing, Avoid Pinching/Bending Remove Dressing in (days):: 1 - Remove bulky dressing tomorrow. May leave any opsite dressing for 3-4 days. Keep dressing in place until your follow-up appointment. Cleanse incision/area with: Keep Dressing Clean & Dry Additional Dressing/Incision Instructions:: Keep dressing in place until your follow-up appointment. Home Medications: Medications to take at Discharge Albuterol Aerosols [Ventolin Aerosols] 2.5 mg INHALATION Q4H PRN PRN 06/16/13 Albuterol IH (ProAir) [Proair Hfa] 2 puff INHALATION Q4H PRN PRN 06/16/13 Lisinopril/Hydrochlorothiazide [Zestoretic /12.5 Tablet] 1 tab PO DAILY Omeprazole [Prilosec] 20 mg PO DAILY 06/16/13 Pravastatin [Pravachol] 20 mg PO QHS 06/16/13 Zolpidem Tartrate [Ambien Cr] 12.5 mg PO QHS PRN PRN 12/15/13 Hydrocodone Bitart/Apap 5-325 [[place] 5/325] 1 - 2 tab PO Q4H PRN PRN #30 tab 05/06 diltiazem CD 120 mg capsule,extended release 24 hr 120 mg PO QDAY cap 08/30/17 potassium chloride ER 10 mEq capsule,extended release 10 meq PO QDAY 08/30/17 Metformin HCl 1,000 mg PO DAILY 09/23/17 Oxycodone [Oxyir] 5 - 10 mg PO Q4H PRN PRN #30 tab 10/02/17 Polyethylene Glycol 3350 [Miralax] 17 gm PO DAILY #20 packet 10/03/17 Following Prescrptions Were Given to Patient: Oxycodone [Oxyir] 5 - 10 mg PO Q4H PRN PRN #30 tab PRN Reason: Pain Polyethylene Glycol 3350 [Miralax] 17 gm PO DAILY #20 packet Primary Care Physician: Jessica Aguero DO [Primary Care Provider] - Please Follow Up With: Romina Mendes PA-C - [phone] When: Saturday; 10/07 Please Follow Up With: Khalif Shell MD - [phone] When: Saturday; 10/09 Disposition: Senior Care facility Minutes spent on discharge:: 30 Patient Condition:: Stable Meaningful Use Info Meaningful Use Diagnoses (Choose all that apply): None applicable
--- NOTE | 2017-10-03 14:38 | CASEMGMT ---
Pt was approved by insurance to go to [facility] today. ALFONSO faxed all discharge instructions and PAS/RR with results to [facility], Schedule II scripts sent to [facility]. SW spoke w/pt, let her know that she is approved to go to [facility] today. Pt states her will drive her there, would like SW to call her . SW called , he will be here in 30 minutes to pick pt up. ALFONSO notified RN here and Bri at [facility] of pickup time. No further needs are anticipated. ANNA Vazquez, DUMPLING MACHINE OPERATOR
[2017-10-03 15:00] VITALS: BP 101/50; PULSE 79; RESP 16; TEMP 36.7; O2SAT 96
== END 2017-10-03 15:29 | disposition skilled nursing facility (03) ==
LOC: SDC 14:12
PROVIDERS: Anesthesiology; Admitting Provider Surgery; Family Provider Internal Medicine; PCP Internal Medicine; Visit Provider Surgery
PROC: (CPT 19307; principal; 2017-10-01 13:45)
DX: C50.111 Malignant neoplasm of central portion of right female breast (principal); Z17.0 Estrogen receptor positive status [ER+]; K21.9 Gastro-esophageal reflux disease without esophagitis; Z86.718 Personal history of other venous thrombosis and embolism; Z86.711 Personal history of pulmonary embolism; E78.00 Pure hypercholesterolemia, unspecified; E11.9 Type 2 diabetes mellitus without complications; E03.9 Hypothyroidism, unspecified; Z79.84 Long term (current) use of oral hypoglycemic drugs; Z79.899 Other long term (current) drug therapy; E66.9 Obesity, unspecified; Z71.3 Dietary counseling and surveillance; Z68.27 Body mass index [BMI] 27.0-27.9, adult; J44.9 Chronic obstructive pulmonary disease, unspecified; I10 Essential (primary) hypertension; I25.10 Atherosclerotic heart disease of native coronary artery without angina pectoris
CPT/HCPCS: 00400; 19303; 38525; 38792; 36415; 80048; 82962; 83036; 84443; 85027; 88305; 88307; 88331; 88341; 88342; 94762; 96361; 96374; 96375; 97116; 97161; 97165; 97530; 97802; 99218; J3010; J7120; A4216; G0378; G0379; J1170; J2405; Q9968

== ENCOUNTER 2017-10-23 14:07 | Outpatient (RCR) | payer MEDICARE, SELFPAY ==
[2017-10-23 16:11] LABS: Color, Urine Yellow (Yellow); Glucose, Dipstick Normal (Normal); Ketone-Dipstick Negative (Negative); Leukocyte Esterase-Dipstick 500 /ul (Negative); Nitrite-Dipstick Positive (Negative); Occult Blood-Urine 25 /ul (Negative); Protein-Dipstick 30 mg/dl (Negative); Specific Gravity, Urine 1.015 (1.002-1.030); Urine Bilirubin Dipstick Negative (Negative); Urine Clarity Sl. Cloudy (Clear); Urine Urobilinogen Normal (Normal)
== END 2017-11-18 23:59 ==
LOC: HHLAB 14:07
PROVIDERS: Family Provider Internal Medicine; PCP Internal Medicine; Visit Provider Internal Medicine
DX: R30.0 Dysuria (principal)
CPT/HCPCS: 81002; 87086; 87088; 87186

== ENCOUNTER 2017-11-19 11:27 | Day surgery (SDC) | payer MEDICARE, SELFPAY ==
[2017-11-19] VITALS (8 sets, daily range): BP systolic 127–135; BP diastolic 59–89; PULSE 60–70; RESP 16–18; TEMP 36.6–36.9; O2SAT 92–100; BMI 27.3
[2017-11-19 12:00] LABS: Bedside Glucose 94 mg/dL (70-110)
[2017-11-19] MEDS: Cefazolin 2 GM in 0.9% Normal Saline 100 ML IV (13:06)
--- NOTE | 2017-11-19 13:11 | PCM.DC.POR ---
Discharge Diet: No Restrictions - Pain medication may cause nausea. You should typically eat light foods as you take your pain medication. Discharge Activity: May Shower - with the bandage in place 1-2 days after surgery. DO NOT SHOWER WHEN YOUR PORT IS ACCESSED. Additional Activity Instructions:: May not drive, work with heavy equipment, or sign legal documents for [address]. [address] if you are no longer taking narcotic pain medications. You may drive when you are no longer taking pain medications. Additional Dressing/Incision Instructions:: Leave the bandage on for 2-3 days. When you remove the bandage, leave the steri-strips intact until they fall off. Allergies/Adverse Reactions: Allergies niacin Allergy (Intermediate, Verified 11/19/17 10:05) Swelling Medications to take at Discharge Albuterol Aerosols [Ventolin Aerosols] 2.5 mg INHALATION Q4H PRN PRN 06/16/13 Albuterol IH (ProAir) [Proair Hfa] 2 puff INHALATION Q4H PRN PRN 06/16/13 Lisinopril/Hydrochlorothiazide [Zestoretic 05/02.5 Tablet] 1 tab PO DAILY 06/16/13 Omeprazole [Prilosec] 20 mg PO DAILY 06/16/13 Pravastatin [Pravachol] 20 mg PO QHS 06/16/13 Zolpidem Tartrate [Ambien Cr] 12.5 mg PO QHS PRN PRN 12/15/13 Hydrocodone Bitart/Apap 5-325 [[place] 5/325] 1 - 2 tab PO Q4H PRN PRN #30 tab 12/30/15 diltiazem CD 120 mg capsule,extended release 24 hr 120 mg PO QDAY cap 08/30/17 potassium chloride ER 10 mEq capsule,extended release 10 meq PO QDAY 08/30/17 Metformin HCl 1,000 mg PO DAILY 09/23/17 Polyethylene Glycol 3350 [Miralax] 17 gm PO DAILY #20 packet 10/03/17 Mometasone/Formoterol [Dulera 100 Mcg/5 Mcg Inhaler] 1 puff INHALATION DAILY 10/11/17 Anastrozole [Arimidex] 1 mg PO DAILY 90 Days #90 tab 10/31/17 Oxycodone HCl/Acetaminophen [Percocet 5/325] 1 - 2 tab PO Q4H PRN PRN 4 Days #30 tab 11/19/17 The following prescriptions were given: Oxycodone HCl/Acetaminophen [Percocet 5/325] 1 - 2 tab PO Q4H PRN PRN 4 Days #30 tab PRN Reason: Pain Primary Care Physician: Jessica Aguero DO [Primary Care Provider] - Please Follow Up With: Khalif Shell MD - [phone] When: Please plan to follow up in 7 days in the office.
--- NOTE | 2017-11-19 13:12 | PCM.OPRPT ---
Problem List (1) Primary cancer of right female breast Status: Acute Report of Operation Date of Procedure: 11/19/17 Pre-Operative Diagnosis: c50.911 female right breast cancer Post-Operative Diagnosis: Same Surgery/Procedure Performed:: Placement of left IJ PowerPort Type of Anesthesia:: MAC Anesthesiologist: Michael Blair Description of Procedure: Patient was brought into the operating room. Placed in the supine position. The bed was tilted head down and her head was turned to the right. I ultrasound the left neck identify the internal jugular vein and marked the neck appropriately. Marked the chest appropriately with where I was going to place the port. The neck and chest were then sterilely prepped and draped in the usual fashion. Local was injected into the neck Seldinger's technique was used to gain access to the internal jugular vein. Guidewire was placed over the needle the needle was removed. Fluoroscopy was used to confirm proper placement of the guidewire. I made a skin joon in the neck placed a dilator over the guidewire removing the guidewire and then I placed a flexible catheter back into the dilator so that I can get the guidewire to go down into the superior vena cava which it did easily. After this dilator and sheath were then placed over this catheter the guidewire and dilator removed single lumen catheter was placed through the sheath and the sheath was removed a raspy was used to confirm proper placement of the catheter into the superior vena cava. Local was injected under the chest. Incision was made. Electrocautery was used to create a pocket for the port. The tunneler was then placed from the pocket created up into the neck and the catheter was brought down. I cut the catheter to length placed the locking hub on the catheter the port onto the catheter and secured the 2 with the locking hub. The port flushed well. It was flushed and irrigated with 5 cc of hep flush. It was sutured into the pocket created with 2 sutures of 2-0 Prolene. Skin incisions were brought together with deep dermal stitches of 3-0 Vicryl. Then a running 4-0 Monocryl. Dermabond was applied sterile dressings were applied and the patient tolerated the procedure well. Portable chest x-ray was ordered. - Admit VTE Documentation VTE Present on Admission: No VTE Mechan Device Prophylaxis: SCD's VTE Pharm Prophylaxis ordered?: No Reason prophylaxis not ordered:: Treatment Not Indicated
[2017-11-19] MEDS: Bupivacaine Mpf 0.5% 30 ML VIAL (13:22)
--- NOTE | 2017-11-19 13:37 | RAD_ITS ---
STUDY: X-RAY CHEST REASON FOR EXAM: Female, 71 years old. Port placement TECHNIQUE: Single AP portable view of the chest. COMPARISON: None. FINDINGS: MediPort is seen on the left side its tip is at the right atrium. The lungs are clear and expanded. There is no demonstrated pleural abnormality. Normal size heart. Normal mediastinum and kwaku. Normal visualized pulmonary arteries. Normal visualized aortic arch and descending thoracic aorta. Normal visualized thoracic spine. There is degenerative osteoarthritis of the bilateral shoulders. There is no demonstrated abnormality of the visualized soft tissue structures of the upper abdomen. RAD/CXR for Line Placement IMPRESSION: Degenerative changes, as described above. No demonstrated acute cardiopulmonary process. Mediport in good position. Electronically Signed: Lela Ron MD at 14:36 EDT Tel , Service support ,
== END 2017-11-19 15:05 | disposition home or self-care (01) ==
LOC: SDC 11:28 → AC 11:31
PROVIDERS: Family Provider Internal Medicine; PCP Internal Medicine; Visit Provider Surgery
PROC: (CPT 36571; principal; 2017-11-19 14:15)
DX: C50.911 Malignant neoplasm of unspecified site of right female breast (principal); J45.909 Unspecified asthma, uncomplicated; I25.10 Atherosclerotic heart disease of native coronary artery without angina pectoris; J44.9 Chronic obstructive pulmonary disease, unspecified; K21.9 Gastro-esophageal reflux disease without esophagitis; E78.00 Pure hypercholesterolemia, unspecified; E66.9 Obesity, unspecified; I73.9 Peripheral vascular disease, unspecified; I10 Essential (primary) hypertension; G47.30 Sleep apnea, unspecified; E11.9 Type 2 diabetes mellitus without complications; F32.9 Major depressive disorder, single episode, unspecified; Z86.711 Personal history of pulmonary embolism; Z86.718 Personal history of other venous thrombosis and embolism; Z68.27 Body mass index [BMI] 27.0-27.9, adult; Z79.51 Long term (current) use of inhaled steroids; Z79.891 Long term (current) use of opiate analgesic; Z79.84 Long term (current) use of oral hypoglycemic drugs
CPT/HCPCS: 00532; 36571; 71045; 77001; 82962; J7120; C1769; C1788; J2405

== ENCOUNTER 2017-12-06 11:53 | Inpatient (IN) | payer MEDICARE, SELFPAY ==
[2017-12-06 11:54] VITALS: BP 121/60; PULSE 84; RESP 24; TEMP 36.4; O2SAT 99; BMI 29.5
[2017-12-06] MEDS: Morphine 4 MG/ML Syringe IV (12:17)
[2017-12-06] MEDS: Ondansetron 4 MG/2 ML Vial IV (12:17)
[2017-12-06] MEDS: 0.9% Normal Saline 1,000 ML 1000 ML IV (12:18)
[2017-12-06 12:31] LABS: Absolute Lymphocyte Count 0.64 X10^3/ul (0.83-4.51); Basophil# 0.15 X10^3/uL; Basophil% 0.8 % (0-1); Eosinophil# 0.03 X10^3/uL; Eosinophils% 0.2 % (0-5); Hematocrit 31.7 % (37-47); Hemoglobin 10.6 g/dl (12.0-15.0); Lymphocyte # 0.64 X10^3/ul (4.0); Lymphocyte % 3.2 % (19-41); Mean Corp Hgb Conc 33.4 g/gl (32-36); Mean Corpuscular Volume 89.8 fL (81-99); Mean Platelet Vol. 9.7 fl (6.2-12.0); Neutrophil # 15.04 X10^3/uL (2.7-7.7); Neutrophil % 75.9 % (47-70); Platelet Count 190 K/mm3 (150-450); RBC Distribution Width CV 13.5 % (11.6-14.6); Red Blood Count 3.53 M/mm3 (4.2-5.4); White Blood Count 19.8 K/mm3 (4.4-11.0)
[2017-12-06 12:32] LABS: POSITIVE COUNT NO; POSITIVE DIFFERENTIAL NO; POSITIVE MORPHOLOGY NO
--- NOTE | 2017-12-06 12:40 | ED.RN ---
MED LIST IN [place] CURRENT AND UPDATED OF 12/04/17 PER [facility].
[2017-12-06 12:41] LABS: ALB/GLOB Ratio 1.1 RATIO (0.9-2.4); AST(SGOT) 17 U/L (15-37); Alanine Aminotransfer ALT/SGPT 28 U/L (13-56); Albumin, Serum 3.3 g/dL (3.2-5.0); Alkaline Phosphatase 64 U/L (45-117); Anion Gap 10 (5-15); BUN 26 mg/dL (7-18); BUN/Creat Ratio 31.4 RATIO (10-20); Calcium,Total 8.6 mg/dL (8.5-10.1); Chloride 104 mmol/L (98-107); Creatinine, Serum 0.83 mg/dL (0.55-1.02); EST Glomerular Filtration Rate 72 mL/min (>60); Est Glom Filt Rate - Afr Amer 87 mL/min (>60); Estimated Creatinine Clearance 54.32 ml/min; Glucose 123 mg/dL (74-106); Potassium 3.4 mmol/L (3.5-5.1); Protein, Total 6.3 g/dL (6.4-8.2); Sodium Level 141 mmol/L (136-145)
[2017-12-06 12:51] LABS: Lymphocyte 5 % (19-41); Monocyte 2 % (0-10); Neutrophil-Band 7 % (0-5); Neutrophil-Segmented 86 % (47-70); Total Cells Counted 100 (MANUAL DIFF)
[2017-12-06 12:52] LABS: Platelet Estimate ADEQUATE (ADEQ); Red Cell Morphology NORM C+C NORMAL (NORM C&C)
[2017-12-06] MEDS: proMETHazine 25 MG/ML Syringe 6.25 MG IV (14:45)
[2017-12-06 14:50] VITALS: BP 134/54; PULSE 87; RESP 17; O2SAT 97
[2017-12-06 14:51] VITALS: BP 134/57; PULSE 88; RESP 0; O2SAT 95
--- NOTE | 2017-12-06 15:19 | HP.PCM_ITS ---
Problem List (1) Chemotherapy induced nausea and vomiting Status: Acute (2) Chemo-induced gastroenteritis Status: Acute (3) Asthma Status: Chronic (4) GERD Status: Chronic (5) Hypertension Status: Chronic (6) Obesity Status: Chronic (7) [place] filter in place Status: Chronic (8) Encounter for screening for malignant neoplasm of colon Status: Chronic (9) Primary cancer of right female breast Status: Chronic (10) Educational circumstance Status: Chronic (11) Chemotherapy management, encounter for Status: Chronic History of Present Illness Date of Admission: 12/06/17 Chief Complaint: Nausea vomiting and diarrhea since 8 AM today The patient is a 71 year old F with history of severe right breast status post right simple complete mastectomy sentinel lymph node biopsy in September [address] Shell [address] Spicer came to ER after she is started nausea, vomiting about 8 AM today after she got chemotherapy on past Saturday. Patient also has loose watery stool, one time in ED. Patient feels weak, dehydrated and had cold sweats but denies fever. She also complained of diffuse abdominal cramps mainly band across right to left midabdomen. She states he had history of bowel obstruction, possible ileus which was managed conservatively. [] In ED, initial vitals were blood pressure 121/60, temperature 97.6 with no hypoxia but tachypnea, respiratory 24/min ER physician discussed with Dr. Gasca was covering oncologist and advised dexamethasone 8 mg daily for 4 days, Phenergan and Zofran. Past Medical History Past Medical History (Chronic Problems): Chronic Problems (Last Reviewed 12/03/17 @ 08:50 by Ana Mckinney) Asthma (Chronic) GERD (Chronic) Hypertension (Chronic) Obesity (Chronic) [place] filter in place (Chronic) Encounter for screening for malignant neoplasm of colon (Chronic) Primary cancer of right female breast (Chronic) Educational circumstance (Chronic) Chemotherapy management, encounter for (Chronic) Allergies niacin Allergy (Intermediate, Verified 12/06/17 11:58) Swelling Home Medications: Ambulatory Orders Medication Instructions Recorded Albuterol Aerosols [Ventolin 2.5 mg INHALATION Q4H PRN PRN 06/16/13 Aerosols] Albuterol IH (ProAir) [Proair Hfa] 2 puff INHALATION Q4H PRN PRN 06/16/13 Lisinopril/Hydrochlorothiazide 1 tab PO DAILY 06/16/13 [Zestoretic 05/02.5 Tablet] Omeprazole [Prilosec] 20 mg PO DAILY 06/16/13 Pravastatin [Pravachol] 20 mg PO QHS 06/16/13 Zolpidem Tartrate [Ambien Cr] 12.5 mg PO QHS PRN PRN 12/15/13 Hydrocodone Bitart/Apap 5-325 1 - 2 tab PO Q4H PRN PRN #30 tab 12/30/15 [[place] 5/325] diltiazem CD 120 mg 120 mg PO QDAY cap 08/30/17 capsule,extended release 24 hr potassium chloride ER 10 mEq 10 meq PO QDAY 08/30/17 capsule,extended release Metformin HCl 1,000 mg PO DAILY 09/23/17 Polyethylene Glycol 3350 [Miralax] 17 gm PO DAILY #20 packet 10/03/17 Mometasone/Formoterol [Dulera 100 1 puff INHALATION DAILY 10/11/17 Mcg/5 Mcg Inhaler] Anastrozole [Arimidex] 1 mg PO DAILY 90 Days #90 tab 10/31/17 Calcium Carbonate/Vitamin D3 1 each PO BID 11/26/17 [Calcium 600-Vit D3 200 Tablet] Mastectomy bras See Label Instructions .ROUTE 11/26/17 .COMPLEX #2 Mastectomy prosthesis See Label Instructions .ROUTE 11/26/17 .COMPLEX #2 Dexamethasone 8 mg PO BID 20 Days #48 tab 12/03/17 Lidocaine/Prilocaine 30 gm TP DAILY PRN PRN 30 Days #1 12/03/17 [Lidocaine-Prilocaine Cream] cream..g. 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 Denies: Fever HEENT: Denies: Head Aches, Sinus Congestion, Sinus Drainage Cardiovascular: Reports: Edema. Denies: Chest Pain, Palpitations Respiratory: Denies: Cough, Shortness of breath at rest, Sputum production Gastrointestinal: Reports: Abdominal Pain, Diarrhea, Nausea, Vomiting Genitourinary: Denies: Dysuria Musculoskeletal: Denies: Joint Pain, Joint Tenderness Skin: Denies: Rash, Wounds Neurological: Denies: Numbness, Tingling, Focal weakness Psychiatric: Denies: Anxiety, Depression, Homicidal Ideations, Suicidal Ideations Hematologic/ Lymphatic: Denies: Easy Bruising, Easy Bleeding VTE Information - Inpt Only VTE Present on Admission: No VTE Mechan Device Prophylaxis: SCD's VTE Pharm Prophylaxis ordered?: Yes Patient Problems: Active and Suspected Problems (Last Reviewed 12/03/17 @ 08:50 by Ana Mckinney) Chemotherapy induced nausea and vomiting (Acute) Chemo-induced gastroenteritis (Acute) - Physical Exam General: Alert, Oriented x3, Cooperative HEENT: Atraumatic, PERRLA, EOMI, Normocephalic Oral: Dry Mucosa, - - Oral mucosa and tongue is dry with dry Saliva Neck: Supple, No JVD, Negative Carotid Bruits Lungs: Clear to auscultation, Normal air movement Cardiovascular: Regular rate, Regular Rhythm, Normal S1, Normal S2, No murmurs Abdomen: Soft, Non-Distended, Hypoactive Bowel Sounds, Tender - On both side in mid abdomen Extremities: No edema, Capillary Refill Less than 3 Seconds Skin: No rashes, No breakdown Musculoskeletal: No Tenderness to Palpation of Joints or Extremities, Arthritic Changes Neurological: Cranial nerves II-XII grossly intact, Neuro grossly intact Psych/Mental Status: Normal Affect, Appropriate Vital Signs Temp Pulse Resp BP Pulse Ox 97.6 F L 88 0 L 134/57 H 95 12/06/17 11:54 12/06/17 14:51 12/06/17 14:51 12/06/17 14:51 12/06/17 14:51 Oxygen Delivery Method Room Air Weight: 177 lb 4.026 oz Body Mass Index (BMI) 29.5 Finger Stick Blood Glucose 80 Laboratory Tests Past 24 Hrs 12/06/17 12/06/17 12:05 12:05 WBC 19.8 H RBC 3.53 L Hgb 10.6 L Hct 31.7 L MCV 89.8 MCH 30.0 MCHC 33.4 RDW 13.5 RDW Differential 43.0 Plt Count 190 MPV 9.7 Immature Gran % (Auto) 18.900 H Neut % (Auto) 75.9 H Lymph % (Auto) 3.2 L [place] % (Auto) 1.0 Eos % (Auto) 0.2 Baso % (Auto) 0.8 Absolute Neuts (auto) 15.0 H Absolute Lymphs (auto) 0.64 L Total Counted 100 Neutrophils % (Manual) 86 H Band Neutrophils % 7 H Lymphocytes % (Manual) 5 L Monocytes % (Manual) 2 Platelet Estimate ADEQUATE RBC Morphology NORM C+C Sodium 141 Potassium 3.4 L Chloride 104 Carbon Dioxide 27.0 Anion Gap 10 BUN 26 H Creatinine 0.83 Estim Creat Clear Calc 54.32 Est GFR (MDRD) Af Amer 87 Est GFR (MDRD) Non-Af 72 BUN/Creatinine Ratio 31.4 H Glucose 123 H Calcium 8.6 Total Bilirubin 0.70 AST 17 ALT 28 Alkaline Phosphatase 64 Total Protein 6.3 L Albumin 3.3 Globulin 3.0 Albumin/Globulin Ratio 1.1 Assessment/Plan Active and Suspected Problems (Last Reviewed 12/03/17 @ 08:50 by Ana Mckinney) Chemotherapy induced nausea and vomiting (Acute) Chemo-induced gastroenteritis (Acute) The patient is a 71 year old F with history of severe right breast status post right simple complete mastectomy sentinel lymph node biopsy in September [address] Shell [address] Dr[address] Spicer came to ER after she is started nausea, vomiting about 8 AM today after she got chemotherapy on past Saturday. Patient also has loose watery stool, one time in ED. Patient feels weak, dehydrated and had cold sweats but denies fever. She also complained of diffuse abdominal cramps mainly band across right to left midabdomen. She states he had history of bowel obstruction, possible ileus which was managed conservatively. [] In ED, initial vitals were blood pressure 121/60, temperature 97.6 with no hypoxia but tachypnea, respiratory 24/min ER physician discussed with Dr. Gasca was covering oncologist and advised dexamethasone 8 mg daily for 4 days, Phenergan and Zofran. 1. Chemotherapy-induced nausea, vomiting and gastroenterocolitis: Patient is being admitted on the regular MedSur floor. On IV fluid normal saline with vigorous rehydration. Monitor intake/output. Monitor electrolytes. On symptomatic management for nausea vomiting with Zofran, Phenergan and dexamethasone. Oncologist consult to Dr. Moore 2 nonspecific, diffuse abdominal pain/cramps primarily from gastroenteritis: Abdominal x-ray erect and supine ordered. Currently we will keep the patient n.p.o. except medications and when nausea/vomiting gets better we will start him on clear liquid diet. 3. Mild hypokalemia most probably from vomiting and diarrhea: On potassium replacement. 4. Reactive leukocytosis after Neulasta: Patient WBC count is 19.8 thousand with immature granulocyte 19%, neutrophil 75% after Neulasta given 2 days ago. 5. Right CA breast status post simple mastectomy on chemotherapy: Being managed by oncologist. 6. Hypertension: Currently blood pressure is about 120/60 mmHg. Hold antihypertensive medication. Can resume later on 7. Other comorbidities include GERD, asthma, obesity and [place] filter in place: Home medication reconciliation done. DVT prophylaxis: On Lovenox 40 subcut daily and bilateral SCDs. Code Visit Inpatient E&M: 33307 Init Hosp L3
--- NOTE | 2017-12-06 15:37 | ED.VISSUMM ---
- ER Visit Summary Date of Service: 12/06/17 Chief Complaint: Vomiting History of Present Illness: The patient is a [address] Spicer, Dr. Shell, Dr. Aguero. She had her first dose of chemotherapy 3 days ago. She got Neulasta 2 days ago. She reports that today she has had diffuse crampy abdominal pain and is vomited 10 times. No blood or emesis. Last bowel was today. She has had no diarrhea. No melena or hematochezia. Patient reports her pain is 10 out of 10 at worst and 6 out of 10 currently. Is worsened by nothing relieved by nothing. She denies any fever. No cough, dysuria, or frequency. She does complain of generalized weakness. Physical Examination: Vitals: Stable. Afebrile. General: Well-nourished and well-developed. Head: Normocephalic atraumatic. Neck: Supple, no lymphadenopathy. No JVD. Nontender. Cardiovascular: Regular rate and rhythm. No murmurs. Respiratory: No respiratory distress. Clear to auscultation bilaterally. Abdominal: Soft, mild diffuse tenderness to palpation, nondistended, normal bowel sounds. No guarding, rebound, or peritoneal signs. Back: Nontender. Extremities: Nontender, no edema. Skin: Normal color, no rash. Neurologic: Alert and oriented ?3. Cranial nerves II through XII are intact. Normal strength and sensation. Psych: Normal affect. Test Results: CBC is marked for white count of 19.8 with 18.9% immature granulocytes. This is due to the Neulasta. H&H is 10.6 and 31.7. Chem-7 is marked potassium 3.4, glucose 123, BUN 26. LFTs are marked total protein 6.3. Emergency Department Course and Treatment: Patient was given a liter of normal saline. She was given morphine, Zofran, Decadron, and Phenergan IV. She continues to complain of nausea. Treatment Plan: Patient was discussed with Dr. Moore and Dr. Elizabeth. She will be admitted to the hospital for further evaluation and symptom management. Disposition: Admitted in improved condition. Impression: 1. Vomiting. 2. 3 days status post chemotherapy for breast cancer. This note was generated with [employer] software. It may contain incorrect words, spelling, and punctuation that were not noted in review of the chart prior to signing ED Disposition - Plan for ED Patient: Disposition: Acute Care [facility] Chief Complaint: Nausea/Vomiting
[2017-12-06 15:57] VITALS: BMI 29.2; BMI 29.3
[2017-12-06 16:01] VITALS: BP 132/53; PULSE 88; RESP 16; TEMP 37; O2SAT 95
[2017-12-06 16:28] LABS: Magnesium 1.7 mg/dL (1.6-2.6)
--- NOTE | 2017-12-06 16:40 | RAD_ITS ---
XR Abdomen W/ Decub and/or Erect Views INDICATION: CHEMO INDUCED VOMITING, PATIENT REFUSED TO LAY ON LEFT SIDE, BEST UPRIGHT IMAGE POSSIBLE OBTAINED WITH PATIENT SITTING IN BED COMPARISON: None TECHNIQUE: Supine and sitting upright view of the abdomen FINDINGS: Few air-filled loops of probably seen throughout the abdomen without significant air-fluid level on the upright view. Atelectatic changes are seen at the left lung base. Osseous structures are osteopenic with multilevel laminectomies at the lumbar spine. RAD/[employer]d Inc Decub and/or Erect IMPRESSION: Mild ileus suggested. Nonobstructive bowel gas pattern. Mild left basilar atelectasis or developing infiltrate. at 1716 Reported and signed by: Raven Jacobo MD Electronically Signed: Raven Jacobo MD at 17:15 EDT Tel , Service support ,
[2017-12-06] MEDS: Enoxaparin 40 MG/0.4 ML Syringe SC (18:04)
[2017-12-06] MEDS: 0.9% NaCl Peripheral Flush Adult/Peds IV (19:07)
[2017-12-06 22:00] VITALS: BP 109/53; PULSE 87; RESP 16; TEMP 36.8; O2SAT 96
[2017-12-06] MEDS: HYDROcodone Bitartrate/Apap 5/325 Tablet PO (22:34)
[2017-12-06] MEDS: Pravastatin 20 MG Tablet PO (22:34)
[2017-12-06] MEDS: proMETHazine 25 MG/ML Syringe 12.5 MG IV (22:35)
[2017-12-07 00:26] LABS: Bedside Glucose 261 mg/dL (70-110)
[2017-12-07] MEDS: 0.9% NaCl Peripheral Flush Adult/Peds IV ×2 (05:05→05:11)
[2017-12-07] MEDS: proMETHazine 25 MG/ML Syringe 12.5 MG IV (05:10)
[2017-12-07 05:15] VITALS: BP 134/53; PULSE 80; RESP 15; TEMP 36.7; O2SAT 97
[2017-12-07 05:31] LABS: Bedside Glucose 140 mg/dL (70-110)
[2017-12-07 05:31] LABS: Anion Gap 8 (5-15); BUN 25 mg/dL (7-18); BUN/Creat Ratio 40.4 RATIO (10-20); Calcium,Total 7.8 mg/dL (8.5-10.1); Chloride 110 mmol/L (98-107); Creatinine, Serum 0.62 mg/dL (0.55-1.02); EST Glomerular Filtration Rate 100 mL/min (>60); Est Glom Filt Rate - Afr Amer 121 mL/min (>60); Estimated Creatinine Clearance 45.09 ml/min; Glucose 140 mg/dL (74-106); Potassium 4.3 mmol/L (3.5-5.1); Sodium Level 144 mmol/L (136-145)
[2017-12-07 05:39] LABS: Hematocrit 30.5 % (37-47); Hemoglobin 9.9 g/dl (12.0-15.0); Mean Corp Hgb Conc 32.5 g/gl (32-36); Mean Corpuscular Hgb 29.5 pg (27.0-32.0); Mean Corpuscular Volume 90.8 fL (81-99); Mean Platelet Vol. 9.4 fl (6.2-12.0); Platelet Count 163 K/mm3 (150-450); RBC Distribution Width CV 13.6 % (11.6-14.6); Red Blood Count 3.36 M/mm3 (4.2-5.4); White Blood Count 16.6 K/mm3 (4.4-11.0)
[2017-12-07 06:06] LABS: Lymphocyte 3 % (19-41); Neutrophil-Band 2 % (0-5); Neutrophil-Segmented 95 % (47-70); Total Cells Counted 100 (MANUAL DIFF)
[2017-12-07 06:09] LABS: Differential Indicated MANUAL DIFF; POSITIVE COUNT YES; POSITIVE DIFFERENTIAL YES; POSITIVE MORPHOLOGY YES
[2017-12-07 06:10] LABS: Absolute Neutrophil Count 16.1 X10^3/uL (2.0-7.7)
[2017-12-07 06:11] LABS: Hypersegmented Neutrophils RARE
[2017-12-07 09:00] VITALS: BP 124/86; PULSE 79; RESP 18; TEMP 36.6; O2SAT 95
[2017-12-07] MEDS: Ondansetron 4 MG/2 ML Vial 8 MG IV (09:58)
[2017-12-07] MEDS: Enoxaparin 40 MG/0.4 ML Syringe SC (09:58)
[2017-12-07] MEDS: dilTIAZem CD 120 MG Capsule PO (09:59)
--- NOTE | 2017-12-07 10:01 | PCM.PN.HOSP ---
Patient Problems: Active and Suspected Problems (Last Reviewed 12/03/17 @ 08:50 by Ana Mckinney) Chemotherapy induced nausea and vomiting (Acute) Chemo-induced gastroenteritis (Acute) Subjective: Patient vomiting is better but is still nauseated. Tolerated sips oral and small amount of clear liquid. She has diarrhea and abdominal cramps. Stool for WBC, leukocytes, C. difficile and enteric pathogen ordered Fever or chills. Vitals/I&O's: Vital Signs Temp Pulse Resp BP Pulse Ox 98.0 F 80 15 134/53 H 97 12/07/17 05:15 12/07/17 05:15 12/07/17 05:15 12/07/17 05:15 12/07/17 05:15 Oxygen Delivery Method Room Air Weight: 175 lb 14.862 oz Body Mass Index (BMI) 29.2 Intake and Output for Last 24 Hours 12/05/17 12/06/17 12/07/17 23:59 23:59 23:59 Intake Total 1271 / 1271 Output Total 350 / 350 Balance 921 / 921 General: Alert, Oriented x3, Cooperative HEENT: Atraumatic, PERRLA, EOMI, Normocephalic Oral: Dry Mucosa Neck: Supple, No JVD, Negative Carotid Bruits Lungs: Clear to auscultation, Normal air movement, No rhonchi, No wheeze, No rales Cardiovascular: Regular rate, Regular Rhythm, Normal S1, Normal S2, No murmurs Abdomen: Bowel Sounds Present, Soft, Non-Distended, Tender - Mild diffuse but more on the left tenderness present Extremities: No edema, Capillary Refill Less than 3 Seconds Skin: No rashes, No breakdown Musculoskeletal: No Tenderness to Palpation of Joints or Extremities Neurological: Cranial nerves II-XII grossly intact Psych/Mental Status: Normal Affect, Appropriate Laboratory Results 12/06/17 22:39: POC Glucose 261 H 12/07/17 05:10: Sodium 144, Potassium 4.3, Chloride 110 H, Carbon Dioxide 26.0, Anion Gap 8, BUN 25 H, Creatinine 0.62, Estim Creat Clear Calc 45.09, Est GFR (MDRD) Af Amer 121, Est GFR (MDRD) Non-Af 100, BUN/Creatinine Ratio 40.4 H, Glucose 140 H, Calcium 7.8 L 12/07/17 05:10: WBC 16.6 H, RBC 3.36 L, Hgb 9.9 L, Hct 30.5 L, MCV 90.8, MCH 29.5, MCHC 32.5, RDW 13.6, RDW Differential 44.0 H, Plt Count 163, MPV 9.4, Neut % (Auto) Not Reportable, Absolute Neuts (auto) 16.1 H, Absolute Lymphs (auto) 0.50 L, Total Counted 100, Neutrophils % (Manual) 95 H, Band Neutrophils % 2, Lymphocytes % (Manual) 3 L, Diff Path Review November foll, Hypersegmented Neuts RARE 12/07/17 05:26: POC Glucose 140 H Current Medications Hydrocodone Bitart/Acetaminophen (Velva 5mg-325mg) 1 - 2 tablet PO Q4H PRN PRN PRN Reason: PAIN Last Admin: 12/06/17 22:34 Dose: 1 tablet Al Hydroxide/Mg Hydroxide (Mylanta Ii) 30 ml PO Q6H PRN PRN PRN Reason: Gastric burning Albuterol Sulfate (Ventolin Aerosols) 2.5 mg INHALATION Q4H PRN PRN PRN Reason: Asthma Albuterol Sulfate (Ventolin Aerosols) 2.5 mg INHALATION Q6HWA.RT [facility] Last Admin: 12/07/17 07:24 Dose: Not Given Budesonide (Pulmicort Aerosol) 0.5 mg INHALATION Q12H.RT [facility] Last Admin: 12/07/17 07:24 Dose: Not Given Dexamethasone Sodium Phosphate (Decadron) 8 mg IV DAILY [facility] Stop: 12/11/17 10:01 Last Admin: 12/07/17 09:59 Dose: 8 mg Diltiazem HCl (Cardizem Cd) 120 mg PO DAILY [facility] Last Admin: 12/07/17 09:59 Dose: 120 mg Enoxaparin Sodium (Lovenox) 40 mg SC DAILY@1000 [facility] Last Admin: 12/07/17 09:58 Dose: 40 mg Hydrocortisone Acetate (Anusol Hc) 25 mg RECTAL BID PRN PRN PRN Reason: irritation/hemorrhoids Pantoprazole Sodium 40 mg/ (Sodium Chloride) 110 mls @ 330 mls/hr IV DAILY [facility] Last Admin: 12/07/17 09:58 Dose: 330 mls/hr Ondansetron HCl 8 mg/ Sodium (Chloride) 54 mls @ 216 mls/hr IV Q6H PRN PRN Reason: NAUSEA Lidocaine/Prilocaine (Emla Cream W/Tegaderm) 0 gm TOPICAL DAILY PRN PRN Reason: NOT SPECIFIED Magnesium Hydroxide (Milk Of Magnesia) 30 ml PO DAILY PRN PRN PRN Reason: Constipation Nutritional Formula (Lactose Free) (Ensure Clear) 120 ml PO TIDCM [facility] Last Admin: 12/07/17 09:57 Dose: Not Given Pravastatin Sodium (Pravachol) 20 mg PO QHS [facility] Last Admin: 12/06/17 22:34 Dose: 20 mg Promethazine HCl (Phenergan) 12.5 mg IV Q6H PRN PRN PRN Reason: NAUSEA/VOMITING Last Admin: 12/07/17 05:10 Dose: 12.5 mg Sodium Chloride () 5 - 30 ml IV UD PRN PRN Reason: SALINE FLUSH Last Admin: 12/07/17 05:11 Dose: 10 ml Zolpidem Tartrate (Ambien (Generic)) 5 mg PO QHS PRN PRN PRN Reason: INSOMNIA Medical Necessity - Tobacco Use Smoking Status: Never smoker Assessment/Plan Active and Suspected Problems (Last Reviewed 12/03/17 @ 08:50 by Ana Mckinney) Chemotherapy induced nausea and vomiting (Acute) Chemo-induced gastroenteritis (Acute) The patient is a 71 year old F with history of severe right breast status post right simple complete mastectomy sentinel lymph node biopsy in September [address] Shell [address] Dr[address] Spicer came to ER after she is started nausea, vomiting about 8 AM today after she got chemotherapy on past Saturday. Patient also has loose watery stool, one time in ED. Patient feels weak, dehydrated and had cold sweats but denies fever. She also complained of diffuse abdominal cramps mainly band across right to left midabdomen. She states he had history of bowel obstruction, possible ileus which was managed conservatively. [] In ED, initial vitals were blood pressure 121/60, temperature 97.6 with no hypoxia but tachypnea, respiratory 24/min ER physician discussed with Dr. Gasca was covering oncologist and advised dexamethasone 8 mg daily for 4 days, Phenergan and Zofran. 1. Chemotherapy-induced nausea, vomiting and gastroenterocolitis: Patient is being admitted on the regular MedSurg floor. On IV fluid normal saline with vigorous rehydration. Monitor intake/output. Monitor electrolytes. On symptomatic management for nausea vomiting with Zofran, Phenergan and dexamethasone. Oncologist consult to Dr. Moore 2 nonspecific, diffuse abdominal pain/cramps primarily from gastroenteritis from chemotherapy: Abdominal x-ray erect and supine ordered. Advance to clear liquid. Abdominal x-ray KUB reviewed and shows mild nonspecific nonobstructive bowel gas pattern. Patient is having diarrhea. Stool for leukocyte, occult blood, C. difficile and enteric pathogen ordered. 3. Mild hypokalemia most probably from vomiting and diarrhea: On potassium replacement. K is corrected 4. Reactive leukocytosis after Neulasta: Patient WBC count is 19.8 thousand with immature granulocyte 19%, neutrophil 75% after Neulasta given 2 days ago. Leukocytosis better 5. Right CA breast status post simple mastectomy on chemotherapy: Being managed by oncologist. 6. Hypertension: Currently blood pressure is about 120/60 mmHg. Continue hold antihypertensive medication. Can resume later on 7. Other comorbidities include GERD, asthma, obesity and [place] filter in place: Home medication reconciliation done. DVT prophylaxis: On Lovenox 40 subcut daily and bilateral SCDs. Laboratory Results 12/06/17 12:05: WBC 19.8 H, RBC 3.53 L, Hgb 10.6 L, Hct 31.7 L, MCV 89.8, MCH 30.0, MCHC 33.4, RDW 13.5, RDW Differential 43.0, Plt Count 190, MPV 9.7, Immature Gran % (Auto) 18.900 H, Neut % (Auto) 75.9 H, Lymph % (Auto) 3.2 L, [place] % (Auto) 1.0, Eos % (Auto) 0.2, Baso % (Auto) 0.8, Absolute Neuts (auto) 15.0 H, Absolute Lymphs (auto) 0.64 L, Total Counted 100, Neutrophils % (Manual) 86 H, Band Neutrophils % 7 H, Lymphocytes % (Manual) 5 L, Monocytes % (Manual) 2, Platelet Estimate ADEQUATE, RBC Morphology NORM C+C 12/06/17 12:05: Sodium 141, Potassium 3.4 L, Chloride 104, Carbon Dioxide 27.0, Anion Gap 10, BUN 26 H, Creatinine 0.83, Estim Creat Clear Calc 54.32, Est GFR (MDRD) Af Amer 87, Est GFR (MDRD) Non-Af 72, BUN/Creatinine Ratio 31.4 H, Glucose 123 H, Calcium 8.6, Total Bilirubin 0.70, AST 17, ALT 28, Alkaline Phosphatase 64, Total Protein 6.3 L, Albumin 3.3, Globulin 3.0, Albumin/Globulin Ratio 1.1 12/06/17 12:05: Magnesium 1.7 12/06/17 22:39: POC Glucose 261 H 12/07/17 05:10: Sodium 144, Potassium 4.3, Chloride 110 H, Carbon Dioxide 26.0, Anion Gap 8, BUN 25 H, Creatinine 0.62, Estim Creat Clear Calc 45.09, Est GFR (MDRD) Af Amer 121, Est GFR (MDRD) Non-Af 100, BUN/Creatinine Ratio 40.4 H, Glucose 140 H, Calcium 7.8 L 12/07/17 05:10: WBC 16.6 H, RBC 3.36 L, Hgb 9.9 L, Hct 30.5 L, MCV 90.8, MCH 29.5, MCHC 32.5, RDW 13.6, RDW Differential 44.0 H, Plt Count 163, MPV 9.4, Neut % (Auto) Not Reportable, Absolute Neuts (auto) 16.1 H, Absolute Lymphs (auto) 0.50 L, Total Counted 100, Neutrophils % (Manual) 95 H, Band Neutrophils % 2, Lymphocytes % (Manual) 3 L, Diff Path Review May foll, Hypersegmented Neuts RARE 12/07/17 05:26: POC Glucose 140 H Clinical Impression(s) from Imaging Studies Abdomen X-Ray 12/06/17 16:40 IMPRESSION: Mild ileus suggested. Nonobstructive bowel gas pattern. Mild left basilar atelectasis or developing infiltrate. Code Visit Inpatient E&M: 10803 Subs Hosp L3
--- NOTE | 2017-12-07 10:08 | PN_ITS ---
Patient Problems: Active and Suspected Problems (Last Reviewed 12/03/17 @ 08:50 by Ana Mckinney) Chemotherapy induced nausea and vomiting (Acute) Chemo-induced gastroenteritis (Acute) Subjective: Patient vomiting is better but is still nauseated. Tolerated sips oral and small amount of clear liquid. She has diarrhea and abdominal cramps. Stool for WBC, leukocytes, C. difficile and enteric pathogen ordered Fever or chills. Vitals/I&O's: Vital Signs Temp Pulse Resp BP Pulse Ox 98.0 F 80 15 134/53 H 97 12/07/17 05:15 12/07/17 05:15 12/07/17 05:15 12/07/17 05:15 12/07/17 05:15 Oxygen Delivery Method Room Air Weight: 175 lb 14.862 oz Body Mass Index (BMI) 29.2 Intake and Output for Last 24 Hours 12/05/17 12/06/17 12/07/17 23:59 23:59 23:59 Intake Total 1271 / 1271 Output Total 350 / 350 Balance 921 / 921 General: Alert, Oriented x3, Cooperative HEENT: Atraumatic, PERRLA, EOMI, Normocephalic Oral: Dry Mucosa Neck: Supple, No JVD, Negative Carotid Bruits Lungs: Clear to auscultation, Normal air movement, No rhonchi, No wheeze, No rales Cardiovascular: Regular rate, Regular Rhythm, Normal S1, Normal S2, No murmurs Abdomen: Bowel Sounds Present, Soft, Non-Distended, Tender - Mild diffuse but more on the left tenderness present Extremities: No edema, Capillary Refill Less than 3 Seconds Skin: No rashes, No breakdown Musculoskeletal: No Tenderness to Palpation of Joints or Extremities Neurological: Cranial nerves II-XII grossly intact Psych/Mental Status: Normal Affect, Appropriate Laboratory Results 12/06/17 22:39: POC Glucose 261 H 12/07/17 05:10: Sodium 144, Potassium 4.3, Chloride 110 H, Carbon Dioxide 26.0, Anion Gap 8, BUN 25 H, Creatinine 0.62, Estim Creat Clear Calc 45.09, Est GFR ( MDRD) Af Amer 121, Est GFR (MDRD) Non-Af 100, BUN/Creatinine Ratio 40.4 H, Glucose 140 H, Calcium 7.8 L 12/07/17 05:10: WBC 16.6 H, RBC 3.36 L, Hgb 9.9 L, Hct 30.5 L, MCV 90.8, MCH 29.5, MCHC 32.5, RDW 13.6, RDW Differential 44.0 H, Plt Count 163, MPV 9.4, Neut % (Auto) Not Reportable, Absolute Neuts (auto) 16.1 H, Absolute Lymphs ( auto) 0.50 L, Total Counted 100, Neutrophils % (Manual) 95 H, Band Neutrophils % 2, Lymphocytes % (Manual) 3 L, Diff Path Review November foll, Hypersegmented Neuts RARE 12/07/17 05:26: POC Glucose 140 H Current Medications Hydrocodone Bitart/Acetaminophen ([place] 5mg-325mg) 1 - 2 tablet PO Q4H PRN PRN PRN Reason: PAIN Last Admin: 12/06/17 22:34 Dose: 1 tablet Al Hydroxide/Mg Hydroxide (Mylanta Ii) 30 ml PO Q6H PRN PRN PRN Reason: Gastric burning Albuterol Sulfate (Ventolin Aerosols) 2.5 mg INHALATION Q4H PRN PRN PRN Reason: Asthma Albuterol Sulfate (Ventolin Aerosols) 2.5 mg INHALATION Q6HWA.RT [facility] Last Admin: 12/07/17 07:24 Dose: Not Given Budesonide (Pulmicort Aerosol) 0.5 mg INHALATION Q12H.RT [facility] Last Admin: 12/07/17 07:24 Dose: Not Given Dexamethasone Sodium Phosphate (Decadron) 8 mg IV DAILY [facility] Stop: 12/11/17 10:01 Last Admin: 12/07/17 09:59 Dose: 8 mg Diltiazem HCl (Cardizem Cd) 120 mg PO DAILY [facility] Last Admin: 12/07/17 09:59 Dose: 120 mg Enoxaparin Sodium (Lovenox) 40 mg SC DAILY@1000 [facility] Last Admin: 12/07/17 09:58 Dose: 40 mg Hydrocortisone Acetate (Anusol Hc) 25 mg RECTAL BID PRN PRN PRN Reason: irritation/hemorrhoids Pantoprazole Sodium 40 mg/ (Sodium Chloride) 110 mls @ 330 mls/hr IV DAILY [facility] Last Admin: 12/07/17 09:58 Dose: 330 mls/hr Ondansetron HCl 8 mg/ Sodium (Chloride) 54 mls @ 216 mls/hr IV Q6H PRN PRN Reason: NAUSEA Lidocaine/Prilocaine (Emla Cream W/Tegaderm) 0 gm TOPICAL DAILY PRN PRN Reason: NOT SPECIFIED Magnesium Hydroxide (Milk Of Magnesia) 30 ml PO DAILY PRN PRN PRN Reason: Constipation Nutritional Formula (Lactose Free) (Ensure Clear) 120 ml PO TIDCM [facility] Last Admin: 12/07/17 09:57 Dose: Not Given Pravastatin Sodium (Pravachol) 20 mg PO QHS [facility] Last Admin: 12/06/17 22:34 Dose: 20 mg Promethazine HCl (Phenergan) 12.5 mg IV Q6H PRN PRN PRN Reason: NAUSEA/VOMITING Last Admin: 12/07/17 05:10 Dose: 12.5 mg Sodium Chloride () 5 - 30 ml IV UD PRN PRN Reason: SALINE FLUSH Last Admin: 12/07/17 05:11 Dose: 10 ml Zolpidem Tartrate (Ambien (Generic)) 5 mg PO QHS PRN PRN PRN Reason: INSOMNIA Medical Necessity - Tobacco Use Smoking Status: Never smoker Assessment/Plan Active and Suspected Problems (Last Reviewed 12/03/17 @ 08:50 by Ana Mckinney) Chemotherapy induced nausea and vomiting (Acute) Chemo-induced gastroenteritis (Acute) The patient is a 71 year old F with history of severe right breast status post right simple complete mastectomy sentinel lymph node biopsy in September [address] Shell [address] Dr[address] Spicer came to ER after she is started nausea, vomiting about 8 AM today after she got chemotherapy on past Saturday. Patient also has loose watery stool, one time in ED. Patient feels weak, dehydrated and had cold sweats but denies fever. She also complained of diffuse abdominal cramps mainly band across right to left midabdomen. She states he had history of bowel obstruction, possible ileus which was managed conservatively. [] In ED, initial vitals were blood pressure 121/60, temperature 97.6 with no hypoxia but tachypnea, respiratory 24/min ER physician discussed with Dr. Gasca was covering oncologist and advised dexamethasone 8 mg daily for 4 days, Phenergan and Zofran. 1. Chemotherapy-induced nausea, vomiting and gastroenterocolitis: Patient is being admitted on the regular MedSurg floor. On IV fluid normal saline with vigorous rehydration. Monitor intake/output. Monitor electrolytes. On symptomatic management for nausea vomiting with Zofran, Phenergan and dexamethasone. Oncologist consult to Dr. Moore 2 nonspecific, diffuse abdominal pain/cramps primarily from gastroenteritis from chemotherapy: Abdominal x-ray erect and supine ordered. Advance to clear liquid. Abdominal x-ray KUB reviewed and shows mild nonspecific nonobstructive bowel gas pattern. Patient is having diarrhea. Stool for leukocyte, occult blood, C. difficile and enteric pathogen ordered. 3. Mild hypokalemia most probably from vomiting and diarrhea: On potassium replacement. K is corrected 4. Reactive leukocytosis after Neulasta: Patient WBC count is 19.8 thousand with immature granulocyte 19%, neutrophil 75% after Neulasta given 2 days ago. Leukocytosis better 5. Right CA breast status post simple mastectomy on chemotherapy: Being managed by oncologist. 6. Hypertension: Currently blood pressure is about 120/60 mmHg. Continue hold antihypertensive medication. Can resume later on 7. Other comorbidities include GERD, asthma, obesity and Jody filter in place: Home medication reconciliation done. DVT prophylaxis: On Lovenox 40 subcut daily and bilateral SCDs. Laboratory Results 12/06/17 12:05: WBC 19.8 H, RBC 3.53 L, Hgb 10.6 L, Hct 31.7 L, MCV 89.8, MCH 30.0, MCHC 33.4, RDW 13.5, RDW Differential 43.0, Plt Count 190, MPV 9.7, Immature Gran % (Auto) 18.900 H, Neut % (Auto) 75.9 H, Lymph % (Auto) 3.2 L, [place] % (Auto) 1.0, Eos % (Auto) 0.2, Baso % (Auto) 0.8, Absolute Neuts (auto) 15.0 H, Absolute Lymphs (auto) 0.64 L, Total Counted 100, Neutrophils % (Manual ) 86 H, Band Neutrophils % 7 H, Lymphocytes % (Manual) 5 L, Monocytes % (Manual ) 2, Platelet Estimate ADEQUATE, RBC Morphology NORM C+C 12/06/17 12:05: Sodium 141, Potassium 3.4 L, Chloride 104, Carbon Dioxide 27.0, Anion Gap 10, BUN 26 H, Creatinine 0.83, Estim Creat Clear Calc 54.32, Est GFR ( MDRD) Af Amer 87, Est GFR (MDRD) Non-Af 72, BUN/Creatinine Ratio 31.4 H, Glucose 123 H, Calcium 8.6, Total Bilirubin 0.70, AST 17, ALT 28, Alkaline Phosphatase 64, Total Protein 6.3 L, Albumin 3.3, Globulin 3.0, Albumin/ Globulin Ratio 1.1 12/06/17 12:05: Magnesium 1.7 12/06/17 22:39: POC Glucose 261 H 12/07/17 05:10: Sodium 144, Potassium 4.3, Chloride 110 H, Carbon Dioxide 26.0, Anion Gap 8, BUN 25 H, Creatinine 0.62, Estim Creat Clear Calc 45.09, Est GFR ( MDRD) Af Amer 121, Est GFR (MDRD) Non-Af 100, BUN/Creatinine Ratio 40.4 H, Glucose 140 H, Calcium 7.8 L 12/07/17 05:10: WBC 16.6 H, RBC 3.36 L, Hgb 9.9 L, Hct 30.5 L, MCV 90.8, MCH 29.5, MCHC 32.5, RDW 13.6, RDW Differential 44.0 H, Plt Count 163, MPV 9.4, Neut % (Auto) Not Reportable, Absolute Neuts (auto) 16.1 H, Absolute Lymphs ( auto) 0.50 L, Total Counted 100, Neutrophils % (Manual) 95 H, Band Neutrophils % 2, Lymphocytes % (Manual) 3 L, Diff Path Review May foll, Hypersegmented Neuts RARE 12/07/17 05:26: POC Glucose 140 H Clinical Impression(s) from Imaging Studies Abdomen X-Ray 12/06/17 16:40 IMPRESSION: Mild ileus suggested. Nonobstructive bowel gas pattern. Mild left basilar atelectasis or developing infiltrate. Code Visit Inpatient E&M: 55228 Subs Hosp L3
[2017-12-07] MEDS: 0.9% Normal Saline 1,000 ML 150 ML IV ×2 (11:18→17:39)
[2017-12-07 11:36] LABS: Bedside Glucose 135 mg/dL (70-110)
--- NOTE | 2017-12-07 14:29 | CASEMGMT ---
MCKENNA SOSA Face to Face with patient for initial transition planning/care coordination assessment. RN IAN introduced self and role at [facility]. Patient lying in bed, alert and oriented. Patient willing to participate in assessment and is able to answer all questions appropriately. Care providers, pharmacy, and demographics verified. See link attached. Patient wishes to discharge home with resumption of [facility]. Patient states she has no further needs or concerns at this time. CM to follow for discharge planning needs that may arise. Disposition Plan: Patient to discharge home with resumption of HHC, family support, and follow-up plans in place.
--- NOTE | 2017-12-07 14:41 | ONC.CONS.INP ---
Consult Referring Physician: James Consult Results: Nausea, vomiting and Diarrhea due to chemotherapy. Subjective Date of Service:: 12/07/17 Chief Complaint: N&V ALL MORNING AND DIARRHEA- STATUS POST CHEMO History of Present Illness: 71-year-old woman was diagnosed with right breast cancer on September 12, 2017. Core biopsy showed invasive ductal carcinoma, ER [place] positive, HER-2 negative. She underwent right modified radical mastectomy with sentinel node biopsy on October 01, 2017. Pathology showed invasive ductal carcinoma, tumor size 1.86 cm, grade 2, sentinel nodes 2 out of 2 negative. Oncotype DX score 31. She stared Arimidex in October 2017. She received her first cycle of adjuvant chemotherapy with Taxotere and Cytoxan on December 03, 2017. She developed nausea vomiting 2 days ago, came to the hospital and developed diarrhea. Nausea vomiting has improved but she has had one watery stool this morning. She wants to get a full liquid diet this evening. Past Medical History: Chronic Problems (Last Reviewed 12/03/17 @ 08:50 by Ana Mckinney) Asthma (Chronic) GERD (Chronic) Hypertension (Chronic) Obesity (Chronic) Jody filter in place (Chronic) Encounter for screening for malignant neoplasm of colon (Chronic) Primary cancer of right female breast (Chronic) Educational circumstance (Chronic) Chemotherapy management, encounter for (Chronic) Past Medical/Surgical History: Past Medical History (Last Reviewed 12/03/17 @ 08:50 by Ana Mckinney) Anemia (Acute) Asthma (Acute) Breast cancer (Acute) CAD (coronary artery disease) (Acute) COPD (chronic obstructive pulmonary disease) (Acute) Constipation (Acute) GERD (gastroesophageal reflux disease) (Acute) Hemorrhoid (Acute) History of incisional hernia repair (Acute) Hypercholesterolemia (Acute) Insomnia (Acute) Obesity (Acute) PVD (peripheral vascular disease) (Acute) Rectal prolapse (Acute) port placement (Acute) HTN (hypertension) (Chronic) Past Surgical History (Last Reviewed 12/03/17 @ 08:50 by Ana Mckinney) Hx of mastectomy (Acute) S/P appendectomy (Acute) S/P carpal tunnel release (Acute) S/P cataract extraction (Acute) S/P hysterectomy (Acute) S/P lumbar discectomy (Acute) S/P partial thyroidectomy (Acute) S/P revision of total knee (Acute) S/P right breast biopsy (Acute) S/P total knee replacement (Acute) Maternal Family History: Family History (Last Reviewed 12/03/17 @ 08:50 by Ana Mckinney) Brother Diabetes Heart disease Sister Breast cancer Mother Cancer Aunt Breast cancer Grandmother Cancer Family History: No pertinent history - Social History Smoking Status: Never smoker Allergies/Adverse Reactions: Allergy/AdvReac Type Severity Reaction Status Date / Time niacin Allergy Intermediate Swelling Verified 12/06/17 11:58 Home Medications Medication Instructions Recorded Albuterol Aerosols [Ventolin 2.5 mg INHALATION Q4H PRN PRN 06/16/13 Aerosols] Albuterol IH (ProAir) [Proair Hfa] 2 puff INHALATION Q4H PRN PRN 06/16/13 Lisinopril/Hydrochlorothiazide 1 tab PO DAILY 06/16/13 [Zestoretic 10/12.5 Tablet] Omeprazole [Prilosec] 20 mg PO DAILY 06/16/13 Pravastatin [Pravachol] 20 mg PO QHS 06/16/13 Zolpidem Tartrate [Ambien Cr] 12.5 mg PO QHS PRN PRN 12/15/13 Hydrocodone Bitart/Apap 5-325 1 - 2 tab PO Q4H PRN PRN #30 tab 12/30/15 [[place] 5/325] diltiazem CD 120 mg 120 mg PO QDAY cap 08/30/17 capsule,extended release 24 hr potassium chloride ER 10 mEq 10 meq PO QDAY 08/30/17 capsule,extended release Metformin HCl 1,000 mg PO DAILY 09/23/17 Polyethylene Glycol 3350 [Miralax] 17 gm PO DAILY #20 packet 10/03/17 Mometasone/Formoterol [Dulera 100 1 puff INHALATION DAILY 10/11/17 Mcg/5 Mcg Inhaler] Anastrozole [Arimidex] 1 mg PO DAILY 90 Days #90 tab 10/31/17 Calcium Carbonate/Vitamin D3 1 each PO BID 11/26/17 [Calcium 600-Vit D3 200 Tablet] Mastectomy bras See Label Instructions .ROUTE 11/26/17 .COMPLEX #2 Mastectomy prosthesis See Label Instructions .ROUTE 11/26/17 .COMPLEX #2 Dexamethasone 8 mg PO BID 20 Days #48 tab 12/03/17 Lidocaine/Prilocaine 30 gm TP DAILY PRN PRN 30 Days #1 12/03/17 [Lidocaine-Prilocaine Cream] cream..g. Ondansetron HCl [Zofran] 4 mg PO Q8H PRN PRN 10 Days #30 tab 12/03/17 Review of Systems Constitutional:: Reports: Weakness, Fatigue. Denies: Fever, Sweats Cardiovascular:: Denies: Chest pain, Palpitations, Dyspnea on exertion, Orthopnea, PND, Shortness of breath Respiratory: Denies: Cough, Hemoptysis, Shortness of Breath, Wheezing Gastrointestinal:: Reports: Nausea - resolved, Vomiting - resolved., Diarrhea - one watery stool this morning. Genitourinary: Denies: Dysuria, Hematuria, 15, Flank pain Musculoskeletal:: Denies: Back pain, Myalgia, Arthralgia Skin: Denies: Rash, Skin Changes, Wounds Neurological:: Denies: Headache, Dizziness, Visual changes, Tinnitus, Hearing loss Psychiatric: Denies: Anxiety, Depression, Homicidal Ideations, Suicidal Ideations Selected Entries 12/07/17 09:00 Temperature 97.9 F Pulse Rate 79 Respiratory Rate 18 Blood Pressure 124/86 H Blood Pressure Mean 98 - Physical Exam General: Alert, Oriented x3, No apparent distress HEENT: Atraumatic, PERRLA, EOMI, Normocephalic Oropharynx:: Dry mucosa Neck:: Supple, Trachea midline. Negative for: JVD, bilateral Cardiac:: Regular rate, Regular rhythm, Normal S1, Normal S2. Negative for: Murmur Lungs: Clear to auscultation, Excusion symmetrical. Negative for: Rhonchi, Wheezes Abdomen:: Bowel sounds x 4, Soft, Non-tender, Non-distended. Negative for: Hepatosplenomegaly Neurological: Neuro grossly intact Lymphatics:: Negative for: Cervical lymphadenopathy, Supraclavicular lymphadenopathy, Axillary lymphadenopathy Laboratory Data: 12/07/2017 stool exam reviewed, C. difficile negative, occult blood positive. Laboratory Tests 12/07/17 05:10 WBC 16.6 H Hgb 9.9 L Hct 30.5 L Plt Count 163 Absolute Neuts (auto) 16.1 H Absolute Lymphs (auto) 0.50 L Diagnostic Data: Diagnostic Data Abdomen X-Ray 12/06/17 16:40 IMPRESSION: Mild ileus suggested. Nonobstructive bowel gas pattern. Mild left basilar atelectasis or developing infiltrate. at 1716 Reported and signed by: Raven Jacobo MD Electronically Signed: Raven Jacobo MD at 17:15 EDT Tel , Service support , Assessment and Plan Chemotherapy related nausea/vomiting and Diarrhea. Improving after admission. Occult blood positive stools. Pt feels like doing full liquid diet. Suggestions: Continue supportive care with antiemetics, antidiarrheal agents as needed. She will need UGI and Lower GI endoscopy to evaluate stool occult blood. Will follow. Thanks. Primary Care Provider: Jessica Aguero Referring Provider: Sean Elizabeth - Problem List (1) Positive fecal occult blood test Status: Acute (2) Chemo-induced gastroenteritis Status: Acute (3) Chemotherapy induced nausea and vomiting Status: Acute (4) Primary cancer of right female breast Status: Chronic Code Visit Office Visits / Consults: [id number] IP Consult L5
--- NOTE | 2017-12-07 14:59 | CON.PCM_ITS ---
Consult Referring Physician: James Consult Results: Nausea, vomiting and Diarrhea due to chemotherapy. Subjective Date of Service:: 12/07/17 Chief Complaint: N&V ALL MORNING AND DIARRHEA- STATUS POST CHEMO History of Present Illness: 71-year-old woman was diagnosed with right breast cancer on September 12, 2017. Core biopsy showed invasive ductal carcinoma, ER [place] positive, HER-2 negative. She underwent right modified radical mastectomy with sentinel node biopsy on October 01, 2017. Pathology showed invasive ductal carcinoma, tumor size 1.86 cm , grade 2, sentinel nodes 2 out of 2 negative. Oncotype DX score 31. She stared Arimidex in October 2017. She received her first cycle of adjuvant chemotherapy with Taxotere and Cytoxan on December 03, 2017. She developed nausea vomiting 2 days ago, came to the hospital and developed diarrhea. Nausea vomiting has improved but she has had one watery stool this morning. She wants to get a full liquid diet this evening. Past Medical History: Chronic Problems (Last Reviewed 12/03/17 @ 08:50 by Ana Mckinney) Asthma (Chronic) GERD (Chronic) Hypertension (Chronic) Obesity (Chronic) Jody filter in place (Chronic) Encounter for screening for malignant neoplasm of colon (Chronic) Primary cancer of right female breast (Chronic) Educational circumstance (Chronic) Chemotherapy management, encounter for (Chronic) Past Medical/Surgical History: Past Medical History (Last Reviewed 12/03/17 @ 08:50 by Ana Mckinney) Anemia (Acute) Asthma (Acute) Breast cancer (Acute) CAD (coronary artery disease) (Acute) COPD (chronic obstructive pulmonary disease) (Acute) Constipation (Acute) GERD (gastroesophageal reflux disease) (Acute) Hemorrhoid (Acute) History of incisional hernia repair (Acute) Hypercholesterolemia (Acute) Insomnia (Acute) Obesity (Acute) PVD (peripheral vascular disease) (Acute) Rectal prolapse (Acute) port placement (Acute) HTN (hypertension) (Chronic) Past Surgical History (Last Reviewed 12/03/17 @ 08:50 by Ana Mckinney) Hx of mastectomy (Acute) S/P appendectomy (Acute) S/P carpal tunnel release (Acute) S/P cataract extraction (Acute) S/P hysterectomy (Acute) S/P lumbar discectomy (Acute) S/P partial thyroidectomy (Acute) S/P revision of total knee (Acute) S/P right breast biopsy (Acute) S/P total knee replacement (Acute) Maternal Family History: Family History (Last Reviewed 12/03/17 @ 08:50 by Ana Mckinney) Brother Diabetes Heart disease Sister Breast cancer Mother Cancer Aunt Breast cancer Grandmother Cancer Family History: No pertinent history - Social History Smoking Status: Never smoker Allergies/Adverse Reactions: Allergy/AdvReac Type Severity Reaction Status Date / Time niacin Allergy Intermediate Swelling Verified 12/06/17 11:58 Home Medications Medication Instructions Recorded Albuterol Aerosols [Ventolin 2.5 mg INHALATION Q4H PRN PRN 06/16/13 Aerosols] Albuterol IH (ProAir) [Proair Hfa] 2 puff INHALATION Q4H PRN PRN 06/16/13 Lisinopril/Hydrochlorothiazide 1 tab PO DAILY 06/16/13 [Zestoretic 10/12.5 Tablet] Omeprazole [Prilosec] 20 mg PO DAILY 06/16/13 Pravastatin [Pravachol] 20 mg PO QHS 06/16/13 Zolpidem Tartrate [Ambien Cr] 12.5 mg PO QHS PRN PRN 12/15/13 Hydrocodone Bitart/Apap 5-325 1 - 2 tab PO Q4H PRN PRN #30 tab 12/30/15 [[place] 5/325] diltiazem CD 120 mg 120 mg PO QDAY cap 08/30/17 capsule,extended release 24 hr potassium chloride ER 10 mEq 10 meq PO QDAY 08/30/17 capsule,extended release Metformin HCl 1,000 mg PO DAILY 09/23/17 Polyethylene Glycol 3350 [Miralax] 17 gm PO DAILY #20 packet 10/03/17 Mometasone/Formoterol [Dulera 100 1 puff INHALATION DAILY 10/11/17 Mcg/5 Mcg Inhaler] Anastrozole [Arimidex] 1 mg PO DAILY 90 Days #90 tab 10/31/17 Calcium Carbonate/Vitamin D3 1 each PO BID 11/26/17 [Calcium 600-Vit D3 200 Tablet] Mastectomy bras See Label Instructions .ROUTE 11/26/17 .COMPLEX #2 Mastectomy prosthesis See Label Instructions .ROUTE 11/26/17 .COMPLEX #2 Dexamethasone 8 mg PO BID 20 Days #48 tab 12/03/17 Lidocaine/Prilocaine 30 gm TP DAILY PRN PRN 30 Days #1 12/03/17 [Lidocaine-Prilocaine Cream] cream..g. Ondansetron HCl [Zofran] 4 mg PO Q8H PRN PRN 10 Days #30 tab 12/03/17 Review of Systems Constitutional:: Reports: Weakness, Fatigue. Denies: Fever, Sweats Cardiovascular:: Denies: Chest pain, Palpitations, Dyspnea on exertion, Orthopnea, PND, Shortness of breath Respiratory: Denies: Cough, Hemoptysis, Shortness of Breath, Wheezing Gastrointestinal:: Reports: Nausea - resolved, Vomiting - resolved., Diarrhea - one watery stool this morning. Genitourinary: Denies: Dysuria, Hematuria, 15, Flank pain Musculoskeletal:: Denies: Back pain, Myalgia, Arthralgia Skin: Denies: Rash, Skin Changes, Wounds Neurological:: Denies: Headache, Dizziness, Visual changes, Tinnitus, Hearing loss Psychiatric: Denies: Anxiety, Depression, Homicidal Ideations, Suicidal Ideations Selected Entries 12/07/17 09:00 Temperature 97.9 F Pulse Rate 79 Respiratory Rate 18 Blood Pressure 124/86 H Blood Pressure Mean 98 - Physical Exam General: Alert, Oriented x3, No apparent distress HEENT: Atraumatic, PERRLA, EOMI, Normocephalic Oropharynx:: Dry mucosa Neck:: Supple, Trachea midline. Negative for: JVD, bilateral Cardiac:: Regular rate, Regular rhythm, Normal S1, Normal S2. Negative for: Murmur Lungs: Clear to auscultation, Excusion symmetrical. Negative for: Rhonchi, Wheezes Abdomen:: Bowel sounds x 4, Soft, Non-tender, Non-distended. Negative for: Hepatosplenomegaly Neurological: Neuro grossly intact Lymphatics:: Negative for: Cervical lymphadenopathy, Supraclavicular lymphadenopathy, Axillary lymphadenopathy Laboratory Data: 12/07/2017 stool exam reviewed, C. difficile negative, occult blood positive. Laboratory Tests 12/07/17 05:10 WBC 16.6 H Hgb 9.9 L Hct 30.5 L Plt Count 163 Absolute Neuts (auto) 16.1 H Absolute Lymphs (auto) 0.50 L Diagnostic Data: Diagnostic Data Abdomen X-Ray 12/06/17 16:40 IMPRESSION: Mild ileus suggested. Nonobstructive bowel gas pattern. Mild left basilar atelectasis or developing infiltrate. at 1716 Reported and signed by: Raven Jacobo MD Electronically Signed: Raven Jacobo MD at 17:15 EDT Tel , Service support , Assessment and Plan Chemotherapy related nausea/vomiting and Diarrhea. Improving after admission. Occult blood positive stools. Pt feels like doing full liquid diet. Suggestions: Continue supportive care with antiemetics, antidiarrheal agents as needed. She will need UGI and Lower GI endoscopy to evaluate stool occult blood. Will follow. Thanks. Primary Care Provider: Jessica Aguero Referring Provider: Sean Elizabeth - Problem List (1) Positive fecal occult blood test Status: Acute (2) Chemo-induced gastroenteritis Status: Acute (3) Chemotherapy induced nausea and vomiting Status: Acute (4) Primary cancer of right female breast Status: Chronic Code Visit Office Visits / Consults: [id number] IP Consult L5
[2017-12-07 15:00] VITALS: BP 146/74; PULSE 77; RESP 18; TEMP 36.4; O2SAT 95
[2017-12-07] MEDS: Hydrocortisone 25 MG Suppository RECTAL ×2 (15:01→22:24)
[2017-12-07] MEDS: Diphenoxylate/Atrop 1 Tablet PO (19:13)
[2017-12-07 20:42] VITALS: BP 129/71; PULSE 92; RESP 16; TEMP 36.9; O2SAT 96
[2017-12-07 20:53] VITALS: RESP 16
[2017-12-07] MEDS: Zolpidem Tartrate 5 MG Tablet PO (22:24)
[2017-12-07] MEDS: Pravastatin 20 MG Tablet PO (22:25)
[2017-12-08 04:11] VITALS: BP 130/69; PULSE 68; RESP 16; TEMP 36.8; O2SAT 93
[2017-12-08 07:15] VITALS: O2SAT 97
[2017-12-08] MEDS: proMETHazine 25 MG/ML Syringe IV ×2 (07:46→18:48)
[2017-12-08] MEDS: 0.9% NaCl Peripheral Flush Adult/Peds IV ×5 (07:53→22:37)
[2017-12-08 07:57] VITALS: BP 130/81; PULSE 72; RESP 16; TEMP 36.7; O2SAT 97
[2017-12-08] MEDS: Hydrocortisone 25 MG Suppository RECTAL ×2 (08:14→22:22)
[2017-12-08] MEDS: Acetaminophen 325 MG Tablet 650 MG PO ×2 (09:37→16:54)
[2017-12-08] MEDS: dilTIAZem CD 120 MG Capsule PO (09:38)
[2017-12-08] MEDS: Ondansetron 4 MG/2 ML Vial 8 MG IV ×2 (11:58→22:33)
--- NOTE | 2017-12-08 14:33 | PCM.PN.HOSP ---
Patient Problems: Active and Suspected Problems (Last Reviewed 12/03/17 @ 08:50 by Ana Mckinney) Chemotherapy induced nausea and vomiting (Acute) Chemo-induced gastroenteritis (Acute) Positive fecal occult blood test (Acute) Subjective: Nausea and vomiting is almost subsided. Patient still having diarrhea but controlled on Imodium. Workup for infectious diarrhea is negative. Patient complain of subjective abdominal cramps most probably from diarrhea but tenderness is negative. Seen by oncologist Dr. Moore. Diet advanced to soft diet Vitals/I&O's: Vital Signs Temp Pulse Resp BP Pulse Ox 98.0 F 72 16 130/81 H 97 12/08/17 07:57 12/08/17 07:57 12/08/17 07:57 12/08/17 07:57 12/08/17 07:57 Oxygen Delivery Method Room Air Weight: 170 lb 3.15 oz Intake and Output for Last 24 Hours 12/06/17 12/07/17 12/08/17 23:59 23:59 23:59 Intake Total 19718 623 / 623 Output Total 352 Balance 1969 623 / 623 General: Alert, Oriented x3, Cooperative HEENT: Atraumatic, PERRLA, EOMI, Normocephalic Neck: Supple, No JVD, Negative Carotid Bruits Lungs: Clear to auscultation, Normal air movement, No rhonchi, No wheeze Cardiovascular: Regular rate, Regular Rhythm, Normal S1, Normal S2, No murmurs Abdomen: Bowel Sounds Present, Soft, Non Tender, Non-Distended Extremities: No edema, Capillary Refill Less than 3 Seconds Skin: No rashes, No breakdown Musculoskeletal: No Tenderness to Palpation of Joints or Extremities, Arthritic Changes, Muscle Wasting Neurological: Cranial nerves II-XII grossly intact Psych/Mental Status: Normal Affect, Appropriate Current Medications Acetaminophen (Tylenol) 650 mg PO Q4H PRN PRN PRN Reason: pain/fever Last Admin: 12/08/17 09:37 Dose: 650 mg Hydrocodone Bitart/Acetaminophen ([place] 5mg-325mg) 1 - 2 tablet PO Q4H PRN PRN PRN Reason: PAIN Last Admin: 12/06/17 22:34 Dose: 1 tablet Al Hydroxide/Mg Hydroxide (Mylanta Ii) 30 ml PO Q6H PRN PRN PRN Reason: Gastric burning Albuterol Sulfate (Ventolin Aerosols) 2.5 mg INHALATION Q4H PRN PRN PRN Reason: Asthma Albuterol Sulfate (Ventolin Aerosols) 2.5 mg INHALATION Q6HWA.RT [facility] Last Admin: 12/08/17 13:17 Dose: Not Given Budesonide (Pulmicort Aerosol) 0.5 mg INHALATION Q12H.RT [facility] Last Admin: 12/08/17 07:15 Dose: Not Given Dexamethasone Sodium Phosphate (Decadron) 8 mg IV DAILY [facility] Stop: 12/11/17 10:01 Last Admin: 12/08/17 09:39 Dose: 8 mg Diltiazem HCl (Cardizem Cd) 120 mg PO DAILY [facility] Last Admin: 12/08/17 09:38 Dose: 120 mg Diphenoxylate HCl/Atropine (Lomotil) 1 tablet PO 4X/DAY PRN PRN Reason: Diarrhea Last Admin: 12/07/17 19:13 Dose: 1 tablet Hydrocortisone Acetate (Anusol Hc) 25 mg RECTAL BID [facility] Last Admin: 12/08/17 08:14 Dose: 25 mg Pantoprazole Sodium 40 mg/ (Sodium Chloride) 110 mls @ 330 mls/hr IV DAILY [facility] Last Admin: 12/08/17 09:38 Dose: 330 mls/hr Lidocaine/Prilocaine (Emla Cream W/Tegaderm) 0 gm TOPICAL DAILY PRN PRN Reason: NOT SPECIFIED Magnesium Hydroxide (Milk Of Magnesia) 30 ml PO DAILY PRN PRN PRN Reason: Constipation Nutritional Formula (Lactose Free) (Ensure Enlive) 120 ml PO 4X/DAY [facility] Last Admin: 12/08/17 13:06 Dose: Not Given Ondansetron HCl (Zofran) 8 mg IV Q6H PRN PRN PRN Reason: NAUSEA/ VOMITING Last Admin: 12/08/17 11:58 Dose: 8 mg Pravastatin Sodium (Pravachol) 20 mg PO QHS [facility] Last Admin: 12/07/17 22:25 Dose: 20 mg Promethazine HCl (Phenergan) 25 mg IV Q6H PRN PRN PRN Reason: NAUSEA/VOMITING Last Admin: 12/08/17 07:46 Dose: 25 mg Sodium Chloride () 5 - 30 ml IV UD PRN PRN Reason: SALINE FLUSH Last Admin: 12/08/17 11:55 Dose: 10 ml Zolpidem Tartrate (Ambien (Generic)) 5 mg PO QHS PRN PRN PRN Reason: INSOMNIA Last Admin: 12/07/17 22:24 Dose: 5 mg Medical Necessity - Tobacco Use Smoking Status: Never smoker Assessment/Plan Active and Suspected Problems (Last Reviewed 12/03/17 @ 08:50 by Ana Mckinney) Chemotherapy induced nausea and vomiting (Acute) Chemo-induced gastroenteritis (Acute) Positive fecal occult blood test (Acute) The patient is a 71 year old F with history of severe right breast status post right simple complete mastectomy sentinel lymph node biopsy in September [address] Shell [address] Dr. Spicer came to ER after she is started nausea, vomiting about 8 AM today after she got chemotherapy on past Saturday. Patient also has loose watery stool, one time in ED. Patient feels weak, dehydrated and had cold sweats but denies fever. She also complained of diffuse abdominal cramps mainly band across right to left midabdomen. She states he had history of bowel obstruction, possible ileus which was managed conservatively. [] In ED, initial vitals were blood pressure 121/60, temperature 97.6 with no hypoxia but tachypnea, respiratory 24/min ER physician discussed with Dr. Gasca was covering oncologist and advised dexamethasone 8 mg daily for 4 days, Phenergan and Zofran. 1. Chemotherapy-induced nausea, vomiting and gastroenterocolitis: Patient is being admitted on the regular MedSurg floor. On IV fluid normal saline with vigorous rehydration. Monitor intake/output. Monitor electrolytes. On symptomatic management for nausea vomiting with Zofran, Phenergan and dexamethasone. Oncologist consult to Dr. Moore 2 nonspecific, diffuse abdominal pain/cramps primarily from gastroenteritis from chemotherapy: Abdominal x-ray erect and supine ordered. Advance to clear liquid. Abdominal x-ray KUB reviewed and shows mild nonspecific nonobstructive bowel gas pattern. Patient is having diarrhea. Stool for occult blood is positive. Stool for lactoferrin enteric Bacteroides panel and C. difficile are negative. 3. Mild hypokalemia most probably from vomiting and diarrhea: On potassium replacement. K is corrected 4. Reactive leukocytosis after Neulasta: Patient WBC count is 19.8 thousand with immature granulocyte 19%, neutrophil 75% after Neulasta given 2 days ago. Leukocytosis better 5. Right CA breast status post simple mastectomy on chemotherapy: Being managed by oncologist. 6. Hypertension: Currently blood pressure is about 120/60 mmHg. Continue hold antihypertensive medication. Can resume later on 7. Other comorbidities include GERD, asthma, obesity and [place] filter in place: Home medication reconciliation done. DVT prophylaxis: Lateral SCDs. Lovenox discontinued as the patient had mild as well as a stool for occult blood positive. Possible lower GI bleed, need outpatient EGD and colonoscopy Laboratory Results 12/07/17 05:10: Sodium 144, Potassium 4.3, Chloride 110 H, Carbon Dioxide 26.0, Anion Gap 8, BUN 25 H, Creatinine 0.62, Estim Creat Clear Calc 45.09, Est GFR (MDRD) Af Amer 121, Est GFR (MDRD) Non-Af 100, BUN/Creatinine Ratio 40.4 H, Glucose 140 H, Calcium 7.8 L 12/07/17 05:10: WBC 16.6 H, RBC 3.36 L, Hgb 9.9 L, Hct 30.5 L, MCV 90.8, MCH 29.5, MCHC 32.5, RDW 13.6, RDW Differential 44.0 H, Plt Count 163, MPV 9.4, Neut % (Auto) Not Reportable, Absolute Neuts (auto) 16.1 H, Absolute Lymphs (auto) 0.50 L, Total Counted 100, Neutrophils % (Manual) 95 H, Band Neutrophils % 2, Lymphocytes % (Manual) 3 L, Diff Path Review May foll, Hypersegmented Neuts RARE 12/07/17 05:26: POC Glucose 140 H Microbiology Past 72 Hours 12/07/17 12:00 Stool Enteric Bacteriology - Final 12/07/17 12:00 Stool C. difficile DNA Amplification - Final 12/07/17 12:00 Stool Stool Lactoferrin - Final 12/07/17 12:00 Stool Stool Occult Blood (СВЕТЛАНА) - Final Occult Blood Positive Clinical Impression(s) from Imaging Studies Abdomen X-Ray 12/06/17 16:40 IMPRESSION: Mild ileus suggested. Nonobstructive bowel gas pattern. Mild left basilar atelectasis or developing infiltrate. Code Visit Inpatient E&M: 80328 Subs Hosp L2
--- NOTE | 2017-12-08 14:37 | PN_ITS ---
Patient Problems: Active and Suspected Problems (Last Reviewed 12/03/17 @ 08:50 by Ana Mckinney) Chemotherapy induced nausea and vomiting (Acute) Chemo-induced gastroenteritis (Acute) Positive fecal occult blood test (Acute) Subjective: Nausea and vomiting is almost subsided. Patient still having diarrhea but controlled on Imodium. Workup for infectious diarrhea is negative. Patient complain of subjective abdominal cramps most probably from diarrhea but tenderness is negative. Seen by oncologist Dr. Moore. Diet advanced to soft diet Vitals/I&O's: Vital Signs Temp Pulse Resp BP Pulse Ox 98.0 F 72 16 130/81 H 97 12/08/17 07:57 12/08/17 07:57 12/08/17 07:57 12/08/17 07:57 12/08/17 07:57 Oxygen Delivery Method Room Air Weight: 170 lb 3.15 oz Intake and Output for Last 24 Hours 12/06/17 12/07/17 12/08/17 23:59 23:59 23:59 Intake Total 19718 623 / 623 Output Total 352 Balance 1969 623 / 623 General: Alert, Oriented x3, Cooperative HEENT: Atraumatic, PERRLA, EOMI, Normocephalic Neck: Supple, No JVD, Negative Carotid Bruits Lungs: Clear to auscultation, Normal air movement, No rhonchi, No wheeze Cardiovascular: Regular rate, Regular Rhythm, Normal S1, Normal S2, No murmurs Abdomen: Bowel Sounds Present, Soft, Non Tender, Non-Distended Extremities: No edema, Capillary Refill Less than 3 Seconds Skin: No rashes, No breakdown Musculoskeletal: No Tenderness to Palpation of Joints or Extremities, Arthritic Changes, Muscle Wasting Neurological: Cranial nerves II-XII grossly intact Psych/Mental Status: Normal Affect, Appropriate Current Medications Acetaminophen (Tylenol) 650 mg PO Q4H PRN PRN PRN Reason: pain/fever Last Admin: 12/08/17 09:37 Dose: 650 mg Hydrocodone Bitart/Acetaminophen ([place] 5mg-325mg) 1 - 2 tablet PO Q4H PRN PRN PRN Reason: PAIN Last Admin: 12/06/17 22:34 Dose: 1 tablet Al Hydroxide/Mg Hydroxide (Mylanta Ii) 30 ml PO Q6H PRN PRN PRN Reason: Gastric burning Albuterol Sulfate (Ventolin Aerosols) 2.5 mg INHALATION Q4H PRN PRN PRN Reason: Asthma Albuterol Sulfate (Ventolin Aerosols) 2.5 mg INHALATION Q6HWA.RT [facility] Last Admin: 12/08/17 13:17 Dose: Not Given Budesonide (Pulmicort Aerosol) 0.5 mg INHALATION Q12H.RT [facility] Last Admin: 12/08/17 07:15 Dose: Not Given Dexamethasone Sodium Phosphate (Decadron) 8 mg IV DAILY [facility] Stop: 12/11/17 10:01 Last Admin: 12/08/17 09:39 Dose: 8 mg Diltiazem HCl (Cardizem Cd) 120 mg PO DAILY [facility] Last Admin: 12/08/17 09:38 Dose: 120 mg Diphenoxylate HCl/Atropine (Lomotil) 1 tablet PO 4X/DAY PRN PRN Reason: Diarrhea Last Admin: 12/07/17 19:13 Dose: 1 tablet Hydrocortisone Acetate (Anusol Hc) 25 mg RECTAL BID [facility] Last Admin: 12/08/17 08:14 Dose: 25 mg Pantoprazole Sodium 40 mg/ (Sodium Chloride) 110 mls @ 330 mls/hr IV DAILY [facility] Last Admin: 12/08/17 09:38 Dose: 330 mls/hr Lidocaine/Prilocaine (Emla Cream W/Tegaderm) 0 gm TOPICAL DAILY PRN PRN Reason: NOT SPECIFIED Magnesium Hydroxide (Milk Of Magnesia) 30 ml PO DAILY PRN PRN PRN Reason: Constipation Nutritional Formula (Lactose Free) (Ensure Enlive) 120 ml PO 4X/DAY [facility] Last Admin: 12/08/17 13:06 Dose: Not Given Ondansetron HCl (Zofran) 8 mg IV Q6H PRN PRN PRN Reason: NAUSEA/ VOMITING Last Admin: 12/08/17 11:58 Dose: 8 mg Pravastatin Sodium (Pravachol) 20 mg PO QHS [facility] Last Admin: 12/07/17 22:25 Dose: 20 mg Promethazine HCl (Phenergan) 25 mg IV Q6H PRN PRN PRN Reason: NAUSEA/VOMITING Last Admin: 12/08/17 07:46 Dose: 25 mg Sodium Chloride () 5 - 30 ml IV UD PRN PRN Reason: SALINE FLUSH Last Admin: 12/08/17 11:55 Dose: 10 ml Zolpidem Tartrate (Ambien (Generic)) 5 mg PO QHS PRN PRN PRN Reason: INSOMNIA Last Admin: 12/07/17 22:24 Dose: 5 mg Medical Necessity - Tobacco Use Smoking Status: Never smoker Assessment/Plan Active and Suspected Problems (Last Reviewed 12/03/17 @ 08:50 by Ana Mckinney) Chemotherapy induced nausea and vomiting (Acute) Chemo-induced gastroenteritis (Acute) Positive fecal occult blood test (Acute) The patient is a 71 year old F with history of severe right breast status post right simple complete mastectomy sentinel lymph node biopsy in September [address] Shell [address] Dr[address] Spicer came to ER after she is started nausea, vomiting about 8 AM today after she got chemotherapy on past Saturday. Patient also has loose watery stool, one time in ED. Patient feels weak, dehydrated and had cold sweats but denies fever. She also complained of diffuse abdominal cramps mainly band across right to left midabdomen. She states he had history of bowel obstruction, possible ileus which was managed conservatively. [] In ED, initial vitals were blood pressure 121/60, temperature 97.6 with no hypoxia but tachypnea, respiratory 24/min ER physician discussed with Dr. Gasca was covering oncologist and advised dexamethasone 8 mg daily for 4 days, Phenergan and Zofran. 1. Chemotherapy-induced nausea, vomiting and gastroenterocolitis: Patient is being admitted on the regular MedSurg floor. On IV fluid normal saline with vigorous rehydration. Monitor intake/output. Monitor electrolytes. On symptomatic management for nausea vomiting with Zofran, Phenergan and dexamethasone. Oncologist consult to Dr. Moore 2 nonspecific, diffuse abdominal pain/cramps primarily from gastroenteritis from chemotherapy: Abdominal x-ray erect and supine ordered. Advance to clear liquid. Abdominal x-ray KUB reviewed and shows mild nonspecific nonobstructive bowel gas pattern. Patient is having diarrhea. Stool for occult blood is positive. Stool for lactoferrin enteric Bacteroides panel and C. difficile are negative. 3. Mild hypokalemia most probably from vomiting and diarrhea: On potassium replacement. K is corrected 4. Reactive leukocytosis after Neulasta: Patient WBC count is 19.8 thousand with immature granulocyte 19%, neutrophil 75% after Neulasta given 2 days ago. Leukocytosis better 5. Right CA breast status post simple mastectomy on chemotherapy: Being managed by oncologist. 6. Hypertension: Currently blood pressure is about 120/60 mmHg. Continue hold antihypertensive medication. Can resume later on 7. Other comorbidities include GERD, asthma, obesity and [place] filter in place: Home medication reconciliation done. DVT prophylaxis: Lateral SCDs. Lovenox discontinued as the patient had mild as well as a stool for occult blood positive. Possible lower GI bleed, need outpatient EGD and colonoscopy Laboratory Results 12/07/17 05:10: Sodium 144, Potassium 4.3, Chloride 110 H, Carbon Dioxide 26.0, Anion Gap 8, BUN 25 H, Creatinine 0.62, Estim Creat Clear Calc 45.09, Est GFR ( MDRD) Af Amer 121, Est GFR (MDRD) Non-Af 100, BUN/Creatinine Ratio 40.4 H, Glucose 140 H, Calcium 7.8 L 12/07/17 05:10: WBC 16.6 H, RBC 3.36 L, Hgb 9.9 L, Hct 30.5 L, MCV 90.8, MCH 29.5, MCHC 32.5, RDW 13.6, RDW Differential 44.0 H, Plt Count 163, MPV 9.4, Neut % (Auto) Not Reportable, Absolute Neuts (auto) 16.1 H, Absolute Lymphs ( auto) 0.50 L, Total Counted 100, Neutrophils % (Manual) 95 H, Band Neutrophils % 2, Lymphocytes % (Manual) 3 L, Diff Path Review May foll, Hypersegmented Neuts RARE 12/07/17 05:26: POC Glucose 140 H Microbiology Past 72 Hours 12/07/17 12:00 Stool Enteric Bacteriology - Final 12/07/17 12:00 Stool C. difficile DNA Amplification - Final 12/07/17 12:00 Stool Stool Lactoferrin - Final 12/07/17 12:00 Stool Stool Occult Blood (СВЕТЛАНА) - Final Occult Blood Positive Clinical Impression(s) from Imaging Studies Abdomen X-Ray 12/06/17 16:40 IMPRESSION: Mild ileus suggested. Nonobstructive bowel gas pattern. Mild left basilar atelectasis or developing infiltrate. Code Visit Inpatient E&M: 25089 Subs Hosp L2
[2017-12-08 18:32] VITALS: BP 138/63; PULSE 77; RESP 18; TEMP 36.7; O2SAT 99
[2017-12-08] MEDS: HYDROcodone Bitartrate/Apap 5/325 Tablet PO (19:37)
[2017-12-08 19:43] VITALS: BP 137/76; PULSE 90; RESP 16; TEMP 37.2; O2SAT 96
[2017-12-08] MEDS: Zolpidem Tartrate 5 MG Tablet PO (22:21)
[2017-12-08] MEDS: Pravastatin 20 MG Tablet PO (22:22)
[2017-12-09] VITALS (18 sets, daily range): BP systolic 136–167; BP diastolic 66–96; PULSE 63–123; RESP 16–24; TEMP 36.2–37; O2SAT 96–100
[2017-12-09] MEDS: Ondansetron 4 MG/2 ML Vial 8 MG IV (06:31)
[2017-12-09] MEDS: 0.9% NaCl Peripheral Flush Adult/Peds IV ×3 (06:31→21:50)
[2017-12-09 07:13] LABS: Absolute Neutrophil Count 5.6 X10^3/uL (2.0-7.7); Anion Gap 9 (5-15); BUN 17 mg/dL (7-18); BUN/Creat Ratio 27.6 RATIO (10-20); Basophil# 0.01 X10^3/uL; Basophil% 0.1 % (0-1); Calcium,Total 8.4 mg/dL (8.5-10.1); Chloride 108 mmol/L (98-107); Creatinine, Serum 0.62 mg/dL (0.55-1.02); EST Glomerular Filtration Rate 101 mL/min (>60); Eosinophil# 0.01 X10^3/uL; Eosinophils% 0.1 % (0-5); Est Glom Filt Rate - Afr Amer 122 mL/min (>60); Estimated Creatinine Clearance 45.09 ml/min; Glucose 127 mg/dL (74-106); Hematocrit 27.8 % (37-47); Lymphocyte % 7.5 % (19-41); Mean Corp Hgb Conc 32.4 g/gl (32-36); Mean Corpuscular Hgb 28.9 pg (27.0-32.0); Mean Corpuscular Volume 89.4 fL (81-99); Mean Platelet Vol. 9.4 fl (6.2-12.0); Monocyte# 0.52 X10^3/uL; Monocyte% 7.8 % (0-10); Neutrophil % 83.6 % (47-70); Platelet Count 187 K/mm3 (150-450); Potassium 3.9 mmol/L (3.5-5.1); RBC Distribution Width CV 13.5 % (11.6-14.6); RBC Distribution Width SD 44.2 fl (35.1-43.9); Red Blood Count 3.11 M/mm3 (4.2-5.4); Sodium Level 145 mmol/L (136-145); White Blood Count 6.7 K/mm3 (4.4-11.0)
[2017-12-09 07:17] LABS: Differential Indicated SCAN CRITERIA MET; POSITIVE COUNT NO; POSITIVE DIFFERENTIAL YES; POSITIVE MORPHOLOGY YES
--- NOTE | 2017-12-09 08:58 | PCM.PN.HOSP ---
Patient Problems: Active and Suspected Problems (Last Reviewed 12/03/17 @ 08:50 by Ana Mckinney) Chemotherapy induced nausea and vomiting (Acute) Chemo-induced gastroenteritis (Acute) Positive fecal occult blood test (Acute) Subjective: Patient is a 71-year-old lady with history of breast cancer diagnosed in August 2017 for which she underwent radical mastectomy. Currently on chemotherapy with Taxotere and Cytoxan presented with nausea and vomiting. Admitted to regular nursing floor where patient is being managed. Objective: GENERAL: cooperative HEENT: Clear conjunctiva, moist oral mucosa NECK; supple, normal thyroid, no distended JVD. CHEST: Diminished to auscultation bilaterally, HEART: Regular S1 S2, no audible murmurs ABDOMEN: soft, non-tender, normoactive bowel sounds, RECTAL: deferred EXTREMITIES: No edema, no clubbing, no cyanosis. BRICK TENDER: Awake; no lateralizing signs. SKIN: No Rash Vitals/I&O's: Vital Signs Temp Pulse Resp BP Pulse Ox 98.1 F 72 18 141/72 H 96 12/09/17 08:40 12/09/17 08:40 12/09/17 08:40 12/09/17 08:40 12/09/17 08:40 Oxygen Delivery Method Room Air Weight: 81.1 kg Intake and Output for Last 24 Hours 12/07/17 12/08/17 12/09/17 23:59 23:59 23:59 Intake Total 1971 / 4078 1327 / 1327 0 / 0 Output Total 2 / 352 Balance 1969 / 3726 1327 / 1327 0 / 0 Laboratory Results 12/09/17 06:35: WBC 6.7, RBC 3.11 L, Hgb 9.0 L, Hct 27.8 L, MCV 89.4, MCH 28.9, MCHC 32.4, RDW 13.5, RDW Differential 44.2 H, Plt Count 187, MPV 9.4, Immature Gran % (Auto) 0.900, Neut % (Auto) 83.6 H, Lymph % (Auto) 7.5 L, Page % (Auto) 7.8, Eos % (Auto) 0.1, Baso % (Auto) 0.1, Absolute Neuts (auto) 5.6, Absolute Lymphs (auto) 0.50 L, Total Counted Not Reportable, Differential Comment 12/09/17 06:35: Sodium 145, Potassium 3.9, Chloride 108 H, Carbon Dioxide 28.0, Anion Gap 9, BUN 17, Creatinine 0.62, Estim Creat Clear Calc 45.09, Est GFR (MDRD) Af Amer 122, Est GFR (MDRD) Non-Af 101, BUN/Creatinine Ratio 27.6 H, Glucose 127 H, Calcium 8.4 L Current Medications Acetaminophen (Tylenol) 650 mg PO Q4H PRN PRN PRN Reason: pain/fever Last Admin: 12/08/17 16:54 Dose: 650 mg Hydrocodone Bitart/Acetaminophen ([place] 5mg-325mg) 1 - 2 tablet PO Q4H PRN PRN PRN Reason: PAIN Last Admin: 12/08/17 19:37 Dose: 1 tablet Al Hydroxide/Mg Hydroxide (Mylanta Ii) 30 ml PO Q6H PRN PRN PRN Reason: Gastric burning Albuterol Sulfate (Ventolin Aerosols) 2.5 mg INHALATION Q4H PRN PRN PRN Reason: Asthma Albuterol Sulfate (Ventolin Aerosols) 2.5 mg INHALATION Q6HWA.RT [facility] Last Admin: 12/09/17 06:56 Dose: Not Given Budesonide (Pulmicort Aerosol) 0.5 mg INHALATION Q12H.RT [facility] Last Admin: 12/09/17 06:56 Dose: Not Given Dexamethasone Sodium Phosphate (Decadron) 8 mg IV DAILY [facility] Stop: 12/11/17 10:01 Last Admin: 12/08/17 09:39 Dose: 8 mg Diltiazem HCl (Cardizem Cd) 120 mg PO DAILY [facility] Last Admin: 12/08/17 09:38 Dose: 120 mg Diphenoxylate HCl/Atropine (Lomotil) 1 tablet PO 4X/DAY PRN PRN Reason: Diarrhea Last Admin: 12/07/17 19:13 Dose: 1 tablet Hydrocortisone Acetate (Anusol Hc) 25 mg RECTAL BID [facility] Last Admin: 12/08/17 22:22 Dose: 25 mg Pantoprazole Sodium 40 mg/ (Sodium Chloride) 110 mls @ 330 mls/hr IV DAILY [facility] Last Admin: 12/08/17 09:38 Dose: 330 mls/hr Lidocaine/Prilocaine (Emla Cream W/Tegaderm) 0 gm TOPICAL DAILY PRN PRN Reason: NOT SPECIFIED Magnesium Hydroxide (Milk Of Magnesia) 30 ml PO DAILY PRN PRN PRN Reason: Constipation Nutritional Formula (Lactose Free) (Ensure Enlive) 120 ml PO 4X/DAY [facility] Last Admin: 12/09/17 08:44 Dose: Not Given Ondansetron HCl (Zofran) 8 mg IV Q6H PRN PRN PRN Reason: NAUSEA/ VOMITING Last Admin: 12/09/17 06:31 Dose: 8 mg Pravastatin Sodium (Pravachol) 20 mg PO QHS [facility] Last Admin: 12/08/17 22:22 Dose: 20 mg Promethazine HCl (Phenergan) 25 mg IV Q6H PRN PRN PRN Reason: NAUSEA/VOMITING Last Admin: 12/08/17 18:48 Dose: 25 mg Sodium Chloride () 5 - 30 ml IV UD PRN PRN Reason: SALINE FLUSH Last Admin: 12/09/17 06:31 Dose: 20 ml Zolpidem Tartrate (Ambien (Generic)) 5 mg PO QHS PRN PRN PRN Reason: INSOMNIA Last Admin: 12/08/17 22:21 Dose: 5 mg Medical Necessity - Tobacco Use Smoking Status: Never smoker Assessment/Plan Active and Suspected Problems (Last Reviewed 12/03/17 @ 08:50 by Ana Mckinney) Chemotherapy induced nausea and vomiting (Acute) Chemo-induced gastroenteritis (Acute) Positive fecal occult blood test (Acute) Patient is a 71-year-old lady with history of breast cancer diagnosed in August 2017 for which she underwent radical mastectomy. Currently on chemotherapy with Taxotere and Cytoxan presented with nausea and vomiting. Admitted to regular nursing floor where patient is being managed. 1. Chemo induced gastroenterocolitis: Noted to a regular nursing floor where patient has been managed symptomatically with IV fluids antinausea medication and correction of electrolyte 2. Hypokalemia secondary to above corrected per protocol 3. Gastro-occult positive stools patient has history of hemorrhoids underwent colonoscopy in [place] [address] Shell no malignancy was found 4. Right breast CA status post radical mastectomy currently on chemo 5. Hypertension-blood pressure controlled, home medications continued with dose adjustment as needed 6. Hiatal hernia with history of reflux symptoms on PPI 7. Mild intermittent asthma 8. History of IVC filter 19. DVT prophylaxis Lovenox Active Medications Acetaminophen (Tylenol) 650 mg PO Q4H PRN PRN PRN Reason: pain/fever Last Admin: 12/08/17 16:54 Dose: 650 mg Hydrocodone Bitart/Acetaminophen ([place] 5mg-325mg) 1 - 2 tablet PO Q4H PRN PRN PRN Reason: PAIN Last Admin: 12/08/17 19:37 Dose: 1 tablet Al Hydroxide/Mg Hydroxide (Mylanta Ii) 30 ml PO Q6H PRN PRN PRN Reason: Gastric burning Albuterol Sulfate (Ventolin Aerosols) 2.5 mg INHALATION Q4H PRN PRN PRN Reason: Asthma Albuterol Sulfate (Ventolin Aerosols) 2.5 mg INHALATION Q6HWA.RT [facility]PL[facility] Last Admin: 12/09/17 06:56 Dose: Not Given Budesonide (Pulmicort Aerosol) 0.5 mg INHALATION Q12H.RT [facility]PL[facility] Last Admin: 12/09/17 06:56 Dose: Not Given Dexamethasone Sodium Phosphate (Decadron) 8 mg IV DAILY [facility] Stop: 12/11/17 10:01 Last Admin: 12/08/17 09:39 Dose: 8 mg Diltiazem HCl (Cardizem Cd) 120 mg PO DAILY [facility] Last Admin: 12/08/17 09:38 Dose: 120 mg Diphenoxylate HCl/Atropine (Lomotil) 1 tablet PO 4X/DAY PRN PRN Reason: Diarrhea Last Admin: 12/07/17 19:13 Dose: 1 tablet Hydrocortisone Acetate (Anusol Hc) 25 mg RECTAL BID [facility]PL[facility] Last Admin: 12/08/17 22:22 Dose: 25 mg Pantoprazole Sodium 40 mg/ (Sodium Chloride) 110 mls @ 330 mls/hr IV DAILY [facility] Last Admin: 12/08/17 09:38 Dose: 330 mls/hr Lidocaine/Prilocaine (Emla Cream W/Tegaderm) 0 gm TOPICAL DAILY PRN PRN Reason: NOT SPECIFIED Magnesium Hydroxide (Milk Of Magnesia) 30 ml PO DAILY PRN PRN PRN Reason: Constipation Nutritional Formula (Lactose Free) (Ensure Enlive) 120 ml PO 4X/DAY [facility]PL[facility]ED [facility] Last Admin: 12/09/17 08:44 Dose: Not Given Ondansetron HCl (Zofran) 8 mg IV Q6H PRN PRN PRN Reason: NAUSEA/ VOMITING Last Admin: 12/09/17 06:31 Dose: 8 mg Pravastatin Sodium (Pravachol) 20 mg PO QHS [facility] Last Admin: 12/08/17 22:22 Dose: 20 mg Promethazine HCl (Phenergan) 25 mg IV Q6H PRN PRN PRN Reason: NAUSEA/VOMITING Last Admin: 12/08/17 18:48 Dose: 25 mg Sodium Chloride () 5 - 30 ml IV UD PRN PRN Reason: SALINE FLUSH Last Admin: 12/09/17 06:31 Dose: 20 ml Zolpidem Tartrate (Ambien (Generic)) 5 mg PO QHS PRN PRN PRN Reason: INSOMNIA Last Admin: 12/08/17 22:21 Dose: 5 mg Code Visit Inpatient E&M: 46524 [facility] H[facility] L3
--- NOTE | 2017-12-09 09:03 | PN_ITS ---
Patient Problems: Active and Suspected Problems (Last Reviewed 12/03/17 @ 08:50 by Ana Mckinney) Chemotherapy induced nausea and vomiting (Acute) Chemo-induced gastroenteritis (Acute) Positive fecal occult blood test (Acute) Subjective: Patient is a 71-year-old lady with history of breast cancer diagnosed in August 2017 for which she underwent radical mastectomy. Currently on chemotherapy with Taxotere and Cytoxan presented with nausea and vomiting. Admitted to regular nursing floor where patient is being managed. Objective: GENERAL: cooperative HEENT: Clear conjunctiva, moist oral mucosa NECK; supple, normal thyroid, no distended JVD. CHEST: Diminished to auscultation bilaterally, HEART: Regular S1 S2, no audible murmurs ABDOMEN: soft, non-tender, normoactive bowel sounds, RECTAL: deferred EXTREMITIES: No edema, no clubbing, no cyanosis. HANDWRITING EXPERT: Awake; no lateralizing signs. SKIN: No Rash Vitals/I&O's: Vital Signs Temp Pulse Resp BP Pulse Ox 98.1 F 72 18 141/72 H 96 12/09/17 08:40 12/09/17 08:40 12/09/17 08:40 12/09/17 08:40 12/09/17 08:40 Oxygen Delivery Method Room Air Weight: 81.1 kg Intake and Output for Last 24 Hours 12/07/17 12/08/17 12/09/17 23:59 23:59 23:59 Intake Total 1971 / 4078 1327 / 1327 0 / 0 Output Total 2 / 352 Balance 1969 / 3726 1327 / 1327 0 / 0 Laboratory Results 12/09/17 06:35: WBC 6.7, RBC 3.11 L, Hgb 9.0 L, Hct 27.8 L, MCV 89.4, MCH 28.9, MCHC 32.4, RDW 13.5, RDW Differential 44.2 H, Plt Count 187, MPV 9.4, Immature Gran % (Auto) 0.900, Neut % (Auto) 83.6 H, Lymph % (Auto) 7.5 L, Ida % (Auto) 7.8, Eos % (Auto) 0.1, Baso % (Auto) 0.1, Absolute Neuts (auto) 5.6, Absolute Lymphs (auto) 0.50 L, Total Counted Not Reportable, Differential Comment 12/09/17 06:35: Sodium 145, Potassium 3.9, Chloride 108 H, Carbon Dioxide 28.0, Anion Gap 9, BUN 17, Creatinine 0.62, Estim Creat Clear Calc 45.09, Est GFR ( MDRD) Af Amer 122, Est GFR (MDRD) Non-Af 101, BUN/Creatinine Ratio 27.6 H, Glucose 127 H, Calcium 8.4 L Current Medications Acetaminophen (Tylenol) 650 mg PO Q4H PRN PRN PRN Reason: pain/fever Last Admin: 12/08/17 16:54 Dose: 650 mg Hydrocodone Bitart/Acetaminophen ([place] 5mg-325mg) 1 - 2 tablet PO Q4H PRN PRN PRN Reason: PAIN Last Admin: 12/08/17 19:37 Dose: 1 tablet Al Hydroxide/Mg Hydroxide (Mylanta Ii) 30 ml PO Q6H PRN PRN PRN Reason: Gastric burning Albuterol Sulfate (Ventolin Aerosols) 2.5 mg INHALATION Q4H PRN PRN PRN Reason: Asthma Albuterol Sulfate (Ventolin Aerosols) 2.5 mg INHALATION Q6HWA.RT [facility] Last Admin: 12/09/17 06:56 Dose: Not Given Budesonide (Pulmicort Aerosol) 0.5 mg INHALATION Q12H.RT [facility] Last Admin: 12/09/17 06:56 Dose: Not Given Dexamethasone Sodium Phosphate (Decadron) 8 mg IV DAILY [facility] Stop: 12/11/17 10:01 Last Admin: 12/08/17 09:39 Dose: 8 mg Diltiazem HCl (Cardizem Cd) 120 mg PO DAILY [facility] Last Admin: 12/08/17 09:38 Dose: 120 mg Diphenoxylate HCl/Atropine (Lomotil) 1 tablet PO 4X/DAY PRN PRN Reason: Diarrhea Last Admin: 12/07/17 19:13 Dose: 1 tablet Hydrocortisone Acetate (Anusol Hc) 25 mg RECTAL BID [facility] Last Admin: 12/08/17 22:22 Dose: 25 mg Pantoprazole Sodium 40 mg/ (Sodium Chloride) 110 mls @ 330 mls/hr IV DAILY [facility] Last Admin: 12/08/17 09:38 Dose: 330 mls/hr Lidocaine/Prilocaine (Emla Cream W/Tegaderm) 0 gm TOPICAL DAILY PRN PRN Reason: NOT SPECIFIED Magnesium Hydroxide (Milk Of Magnesia) 30 ml PO DAILY PRN PRN PRN Reason: Constipation Nutritional Formula (Lactose Free) (Ensure Enlive) 120 ml PO 4X/DAY [facility] Last Admin: 12/09/17 08:44 Dose: Not Given Ondansetron HCl (Zofran) 8 mg IV Q6H PRN PRN PRN Reason: NAUSEA/ VOMITING Last Admin: 12/09/17 06:31 Dose: 8 mg Pravastatin Sodium (Pravachol) 20 mg PO QHS [facility] Last Admin: 12/08/17 22:22 Dose: 20 mg Promethazine HCl (Phenergan) 25 mg IV Q6H PRN PRN PRN Reason: NAUSEA/VOMITING Last Admin: 12/08/17 18:48 Dose: 25 mg Sodium Chloride () 5 - 30 ml IV UD PRN PRN Reason: SALINE FLUSH Last Admin: 12/09/17 06:31 Dose: 20 ml Zolpidem Tartrate (Ambien (Generic)) 5 mg PO QHS PRN PRN PRN Reason: INSOMNIA Last Admin: 12/08/17 22:21 Dose: 5 mg Medical Necessity - Tobacco Use Smoking Status: Never smoker Assessment/Plan Active and Suspected Problems (Last Reviewed 12/03/17 @ 08:50 by Ana Mckinney) Chemotherapy induced nausea and vomiting (Acute) Chemo-induced gastroenteritis (Acute) Positive fecal occult blood test (Acute) Patient is a 71-year-old lady with history of breast cancer diagnosed in August 2017 for which she underwent radical mastectomy. Currently on chemotherapy with Taxotere and Cytoxan presented with nausea and vomiting. Admitted to regular nursing floor where patient is being managed. 1. Chemo induced gastroenterocolitis: Noted to a regular nursing floor where patient has been managed symptomatically with IV fluids antinausea medication and correction of electrolyte 2. Hypokalemia secondary to above corrected per protocol 3. Gastro-occult positive stools patient has history of hemorrhoids underwent colonoscopy in [place] [address] Shell no malignancy was found 4. Right breast CA status post radical mastectomy currently on chemo 5. Hypertension-blood pressure controlled, home medications continued with dose adjustment as needed 6. Hiatal hernia with history of reflux symptoms on PPI 7. Mild intermittent asthma 8. History of IVC filter 19. DVT prophylaxis Lovenox Active Medications Acetaminophen (Tylenol) 650 mg PO Q4H PRN PRN PRN Reason: pain/fever Last Admin: 12/08/17 16:54 Dose: 650 mg Hydrocodone Bitart/Acetaminophen ([place] 5mg-325mg) 1 - 2 tablet PO Q4H PRN PRN PRN Reason: PAIN Last Admin: 12/08/17 19:37 Dose: 1 tablet Al Hydroxide/Mg Hydroxide (Mylanta Ii) 30 ml PO Q6H PRN PRN PRN Reason: Gastric burning Albuterol Sulfate (Ventolin Aerosols) 2.5 mg INHALATION Q4H PRN PRN PRN Reason: Asthma Albuterol Sulfate (Ventolin Aerosols) 2.5 mg INHALATION Q6HWA.RT [facility] Last Admin: 12/09/17 06:56 Dose: Not Given Budesonide (Pulmicort Aerosol) 0.5 mg INHALATION Q12H.RT [facility] Last Admin: 12/09/17 06:56 Dose: Not Given Dexamethasone Sodium Phosphate (Decadron) 8 mg IV DAILY [facility] Stop: 12/11/17 10:01 Last Admin: 12/08/17 09:39 Dose: 8 mg Diltiazem HCl (Cardizem Cd) 120 mg PO DAILY [facility] Last Admin: 12/08/17 09:38 Dose: 120 mg Diphenoxylate HCl/Atropine (Lomotil) 1 tablet PO 4X/DAY PRN PRN Reason: Diarrhea Last Admin: 12/07/17 19:13 Dose: 1 tablet Hydrocortisone Acetate (Anusol Hc) 25 mg RECTAL BID [facility] Last Admin: 12/08/17 22:22 Dose: 25 mg Pantoprazole Sodium 40 mg/ (Sodium Chloride) 110 mls @ 330 mls/hr IV DAILY [facility] Last Admin: 12/08/17 09:38 Dose: 330 mls/hr Lidocaine/Prilocaine (Emla Cream W/Tegaderm) 0 gm TOPICAL DAILY PRN PRN Reason: NOT SPECIFIED Magnesium Hydroxide (Milk Of Magnesia) 30 ml PO DAILY PRN PRN PRN Reason: Constipation Nutritional Formula (Lactose Free) (Ensure Enlive) 120 ml PO 4X/DAY [facility] Last Admin: 12/09/17 08:44 Dose: Not Given Ondansetron HCl (Zofran) 8 mg IV Q6H PRN PRN PRN Reason: NAUSEA/ VOMITING Last Admin: 12/09/17 06:31 Dose: 8 mg Pravastatin Sodium (Pravachol) 20 mg PO QHS [facility] Last Admin: 12/08/17 22:22 Dose: 20 mg Promethazine HCl (Phenergan) 25 mg IV Q6H PRN PRN PRN Reason: NAUSEA/VOMITING Last Admin: 12/08/17 18:48 Dose: 25 mg Sodium Chloride () 5 - 30 ml IV UD PRN PRN Reason: SALINE FLUSH Last Admin: 12/09/17 06:31 Dose: 20 ml Zolpidem Tartrate (Ambien (Generic)) 5 mg PO QHS PRN PRN PRN Reason: INSOMNIA Last Admin: 12/08/17 22:21 Dose: 5 mg Code Visit Inpatient E&M: 53916 [facility] Hosp L3
[2017-12-09] MEDS: dilTIAZem CD 120 MG Capsule PO (09:06)
[2017-12-09] MEDS: Hydrocortisone 25 MG Suppository RECTAL ×2 (09:06→10:29)
[2017-12-09] MEDS: Acetaminophen 325 MG Tablet 650 MG PO (09:06)
[2017-12-09] MEDS: proMETHazine 25 MG/ML Syringe IV (09:09)
[2017-12-09 12:01] LABS: Pathologist Review Reviewed
[2017-12-09 12:08] LABS: Pathologist Review Reviewed
[2017-12-09] MEDS: Mag Hydrox/Al Hydrox/Simeth 30 ML UDC PO (17:10)
--- NOTE | 2017-12-09 18:17 | EKG12_ITS ---
Test Reason : CP Blood Pressure : / mmHG Vent. Rate : 090 BPM Atrial Rate : 090 BPM P-R Int : 164 ms QRS Dur : 090 ms QT Int : 376 ms P-R-T Axes : 082 007 049 degrees QTc Int : 459 ms Sinus rhythm with Premature atrial complexes Confirmed by AYANA GONZALEZ, JORGE ([id number]), science editor PATSY MILLER ([id number]) on 01/02/2018 5:33:01 PM Referred By: Sean Elizabeth Confirmed By:JORGE PIÑA MD
--- NOTE | 2017-12-09 19:11 | NURSING ---
185 talked w/ Jen PROCUREMENT AGENT reviewed tele monitor strips with her as this nurse reads as PACs but also looks likes going in and out of afib. primary RN administering nitro x2, aware still has chestpain, noted on tele HR up into 150's hooked up to mp5, HR 150's to 110's. [address]. Alfodr sent text, returned call. orders obtained. primary RN aware electrical tests supervisor updated on patient 1911 Dr. Morrow covering for hospital updated on order obtained from Dr. Alford.
--- NOTE | 2017-12-09 19:54 | NURSING ---
Addendum entered by Chandrika Suresh 12/09/17 20:07: Patient states that she does have a administrator of home health Dr. Lopez and that she last saw him in 02/2016 prior to her RTK surgery for stress test (result was negative per pt). She states she doesn't see him often due to finances. She states that she did have a cardiac cath with Dr. Lopez prior to that. She does take Cardizem for an irregular heart rate- but states that she has not had A.fib in the past. Patient did receive cardizem this AM at 0900. Original Note: Patient stated that she was feeling burning up through esophagus this morning. She reported that it was 1 or 2 /10. She stated that it improved with burping. Later in shift patient began complaining of chest pain 7/10 that felt like it was shocking her. Dr. Alford notified and new orders given. EKG showed premature beats. Patient was then ordered nitro and tele. Patient placed on 2 L oxygen and nitro was obtained via override. Patient reported that after 1st dose of nitro @ 1844 caused her chest pain to decreased to 4/10. Patient was given 2nd dose at 1854 and patient reported that pain did not decrease. Patient's telemetry, physician notification and EKG results were being monitored by Scott Valentine RN and MCKENNA Denton with support from this RN. Patient's telemetry was connected to vitals machine- noted that heart rate was spiking up into 130's-140's. New EKG obtained and showed a.fib at that time. Doctor Alford ordered for patient to be transferred to PCU. This RN called reported to PCU, MCKENNA Colon and this RN ,with assist from MCKENNA Denton, transported patient downstairs after labs were obtained by MCKENNA Ivan. Patient settled in and this RN obtained BSC for patient from [facility] prior to returning to [facility]. MCKENNA Colon denied further needs.
[2017-12-09 20:05] LABS: D-Dimer Quantitative (DVT/PE) 2.06 FEU/ug/m (0.27-0.49)
--- NOTE | 2017-12-09 20:06 | NURSING ---
Patient reports that when her nausea and vomiting started at home she waiting 4+ hours to speak to family members and then they called 911. Patient reports feeling very nervous about being able to pay for all of the treatments that she needs. Verbalized that she delayed calling 911 due to finances.
[2017-12-09] MEDS: HYDROcodone Bitartrate/Apap 5/325 Tablet PO (20:25)
--- NOTE | 2017-12-09 20:50 | CT_ITS ---
STUDY: CTA CHEST REASON FOR EXAM: Female, 71 years old. Chest pain elevated d-dimer nausea vomiting, asthma COPD hypertension RADIATION DOSAGE (If Supplied By Facility): CTDIvol = ( 12.63 ) mGy, DLP = ( 707.68 ) mGycm TECHNIQUE: The examination was performed with the intravenous administration of 100ML ml of Isovue 370 contrast material. Post-processing of the angiographic images was performed, with multiplanar reformation and 3D reconstruction. Individualized dose optimization techniques were used for this CT. COMPARISON: June 28, 2016 CT angiogram chest FINDINGS: Normal enhancement of the main pulmonary artery and right and left pulmonary arteries. Normal enhancement of the bilateral peripheral pulmonary arteries. There is no demonstrated pulmonary embolism. The ascending thoracic aorta measures 3.7 x 3.9 cm. The aorta is calcified and tortuous. There is no demonstrated aortic dissection. There are coronary calcifications. There is borderline cardiac enlargement. The left atrium is compressed by the large hiatal hernia. This measures at least 10.7 x 5.6 x 11 cm. There are sizable subcarinal calcifications. There is calcification in the left hilum. Normal visualized trachea and bronchi. The lungs are well expanded. Normal pulmonary parenchyma. Normal pleura. Normal chest wall structures. There are degenerative changes of thoracic spine. There are multiple calcifications in the spleen compatible granulomatous disease. CT/CTA Chest W/WO Contrast IMPRESSION: Large hiatal hernia similar to prior studies, compressing the left atrium. Coronary calcification. No evidence of pulmonary embolism. Evidence of old granulomatous disease. No evidence of focal infiltrate. Electronically Signed: Ivis Engle MD at 21:48 EDT Tel , Service support ,
[2017-12-09] MEDS: Morphine 4 MG/ML Syringe 2 MG IV (21:50)
[2017-12-10] VITALS (24 sets, daily range): BP systolic 103–147; BP diastolic 57–80; PULSE 58–99; RESP 16–20; TEMP 36.6–36.9; O2SAT 94–99
[2017-12-10] MEDS: Morphine 4 MG/ML Syringe 2 MG IV (00:59)
[2017-12-10] MEDS: 0.9% NaCl Peripheral Flush Adult/Peds IV (00:59)
--- NOTE | 2017-12-10 08:19 | EKG12_ITS ---
Test Reason : Blood Pressure : / mmHG Vent. Rate : 059 BPM Atrial Rate : 059 BPM P-R Int : 186 ms QRS Dur : 098 ms QT Int : 444 ms P-R-T Axes : 077 004 037 degrees QTc Int : 439 ms Sinus bradycardia with Premature atrial complexes Confirmed by AYANA GONZALEZ, JORGE ([id number]), purchasing expeditor PATSY MILLER ([id number]) on 12/18/2017 3:22:14 PM Referred By: Sean Elizabeth Confirmed By:JORGE PIÑA MD
[2017-12-10] MEDS: HYDROcodone Bitartrate/Apap 5/325 Tablet PO ×2 (09:12→20:29)
--- NOTE | 2017-12-10 09:57 | PCM.PN.HOSP ---
Patient Problems: Active and Suspected Problems (Last Reviewed 12/03/17 @ 08:50 by Ana Mckinney) Chemotherapy induced nausea and vomiting (Acute) Chemo-induced gastroenteritis (Acute) Positive fecal occult blood test (Acute) Subjective: Patient was transferred from a regular nursing floor to progressive care unit after she developed significant chest pain and went into A. fib with RVR was started on Cardizem drip. Patient converted back to sinus rhythm on the morning of 12/10/2017. Telemetry monitoring currently demonstrates frequent PACs. Admitted to his stools being formed now Objective: GENERAL: cooperative HEENT: Clear conjunctiva, moist oral mucosa NECK; supple, normal thyroid, no distended JVD. CHEST: Diminished to auscultation bilaterally, HEART: Regular S1 S2, no audible murmurs ABDOMEN: soft, non-tender, normoactive bowel sounds, RECTAL: deferred EXTREMITIES: No edema, no clubbing, no cyanosis. PARK GUIDE: Awake; no lateralizing signs. SKIN: No Rash Vitals/I&O's: Vital Signs Temp Pulse Resp BP Pulse Ox 98.2 F 72 18 142/63 H 97 12/10/17 09:00 12/10/17 09:00 12/10/17 09:00 12/10/17 09:00 12/10/17 09:00 Oxygen Flow Rate (L/min) 2 Oxygen Delivery Method Nasal Cannula Weight: 79.7 kg Body Mass Index (BMI) 29.2 Intake and Output for Last 24 Hours 12/08/17 12/09/17 12/10/17 23:59 23:59 23:59 Intake Total 1327 / 1327 510 / 510 1036 / 1036 Output Total 700 / 700 Balance 1327 / 1327 510 / 510 336 / 336 Microbiology Past 72 Hours 12/07/17 12:00 Stool Enteric Bacteriology - Final 12/07/17 12:00 Stool C. difficile DNA Amplification - Final 12/07/17 12:00 Stool Stool Lactoferrin - Final 12/07/17 12:00 Stool Stool Occult Blood (СВЕТЛАНА) - Final Occult Blood Positive Laboratory Results 12/07/17 05:10: Diff Path Review Reviewed 12/09/17 19:33: Troponin I < 0.015 12/09/17 19:33: D-Dimer Quant (PE/DVT) 2.06 H* 12/09/17 22:20: Troponin I < 0.015 12/10/17 01:20: Troponin I < 0.015 Current Medications Acetaminophen (Tylenol) 650 mg PO Q4H PRN PRN PRN Reason: pain/fever Last Admin: 12/09/17 09:06 Dose: 650 mg Hydrocodone Bitart/Acetaminophen ([place] 5mg-325mg) 1 - 2 tablet PO Q4H PRN PRN PRN Reason: PAIN Last Admin: 12/10/17 09:12 Dose: 2 tablet Al Hydroxide/Mg Hydroxide (Mylanta Ii) 30 ml PO Q6H PRN PRN PRN Reason: Gastric burning Last Admin: 12/09/17 17:10 Dose: 30 ml Albuterol Sulfate (Ventolin Aerosols) 2.5 mg INHALATION Q4H PRN PRN PRN Reason: Asthma Albuterol Sulfate (Ventolin Aerosols) 2.5 mg INHALATION Q6HWA.RT [facility] Last Admin: 12/10/17 07:32 Dose: Not Given Budesonide (Pulmicort Aerosol) 0.5 mg INHALATION Q12H.RT [facility] Last Admin: 12/10/17 07:32 Dose: Not Given Dexamethasone Sodium Phosphate (Decadron) 8 mg IV DAILY [facility] Stop: 12/11/17 10:01 Last Admin: 12/09/17 09:05 Dose: 8 mg Diltiazem HCl (Cardizem Cd) 120 mg PO DAILY [facility] Last Admin: 12/09/17 09:06 Dose: 120 mg Diphenoxylate HCl/Atropine (Lomotil) 1 tablet PO 4X/DAY PRN PRN Reason: Diarrhea Last Admin: 12/07/17 19:13 Dose: 1 tablet Hydrocortisone Acetate (Anusol Hc) 25 mg RECTAL BID [facility] Last Admin: 12/10/17 09:38 Dose: Not Given Pantoprazole Sodium 40 mg/ (Sodium Chloride) 110 mls @ 330 mls/hr IV DAILY [facility] Last Admin: 12/09/17 09:05 Dose: 330 mls/hr Diltiazem HCl 125 mg/ Dextrose 125 mls @ 5 mls/hr CONT INF .Q25H [facility] PRN Reason: 5 MG/HR Last Admin: 12/09/17 21:46 Dose: 5 mls/hr Lidocaine/Prilocaine (Emla Cream W/Tegaderm) 0 gm TOPICAL DAILY PRN PRN Reason: NOT SPECIFIED Magnesium Hydroxide (Milk Of Magnesia) 30 ml PO DAILY PRN PRN PRN Reason: Constipation Morphine Sulfate () 2 mg IV Q2H PRN PRN PRN Reason: SEVERE PAIN (6-10/10) Last Admin: 12/10/17 00:59 Dose: 2 mg Nitroglycerin (Nitrostat) 0.4 mg SUBLINGUAL Q5M PRN PRN Reason: CARDIAC/CHEST PAIN Last Admin: 12/09/17 18:54 Dose: 0.4 mg Nutritional Formula (Lactose Free) (Ensure Enlive) 120 ml PO 4X/DAY [facility] Last Admin: 12/10/17 09:37 Dose: Not Given Ondansetron HCl (Zofran) 8 mg IV Q6H PRN PRN PRN Reason: NAUSEA/ VOMITING Last Admin: 12/09/17 06:31 Dose: 8 mg Pravastatin Sodium (Pravachol) 20 mg PO QHS [facility] Last Admin: 12/09/17 21:48 Dose: Not Given Promethazine HCl (Phenergan) 25 mg IV Q6H PRN PRN PRN Reason: NAUSEA/VOMITING Last Admin: 12/09/17 09:09 Dose: 25 mg Sodium Chloride () 5 - 30 ml IV UD PRN PRN Reason: SALINE FLUSH Last Admin: 12/10/17 00:59 Dose: 10 ml Zolpidem Tartrate (Ambien (Generic)) 5 mg PO QHS PRN PRN PRN Reason: INSOMNIA Last Admin: 12/08/17 22:21 Dose: 5 mg Medical Necessity - Tobacco Use Smoking Status: Never smoker Assessment/Plan Active and Suspected Problems (Last Reviewed 12/03/17 @ 08:50 by Ana Mckinney) Chemotherapy induced nausea and vomiting (Acute) Chemo-induced gastroenteritis (Acute) Positive fecal occult blood test (Acute) Patient is a 71-year-old lady with history of breast cancer diagnosed in August 2017 for which she underwent radical mastectomy. Currently on chemotherapy with Taxotere and Cytoxan presented with nausea and vomiting. Admitted to regular nursing floor where patient is being managed. 1. Chemo induced gastroenterocolitis: patient has been managed symptomatically with IV fluids antinausea medication and correction of electrolyte 2. Hypokalemia secondary to above corrected per protocol 3. Gastro-occult positive stools patient has history of hemorrhoids underwent colonoscopy in [place] [address] Shell no malignancy was found 4. Right breast CA status post radical mastectomy currently on chemo 5. Hypertension-blood pressure controlled, home medications continued with dose adjustment as needed 6. Hiatal hernia with history of reflux symptoms on PPI 7. Mild intermittent asthma 8. History of IVC filter 9. Proximal A. fib patient converted back to sinus rhythm on Cardizem. Echo ordered for subsequent evaluation consult placed to Dr. Mickey ratliff 10. DVT prophylaxis Lovenox Clinical Impression(s) from Imaging Studies Abdomen X-Ray 12/06/17 16:40 IMPRESSION: Mild ileus suggested. Nonobstructive bowel gas pattern. Mild left basilar atelectasis or developing infiltrate. at 1716 Reported and signed by: Raven Jacobo MD Electronically Signed: Raven Jacobo MD at 17:15 EDT Tel , Service support , Chest CTA 12/09/17 20:50 IMPRESSION: Large hiatal hernia similar to prior studies, compressing the left atrium. Coronary calcification. No evidence of pulmonary embolism. Evidence of old granulomatous disease. No evidence of focal infiltrate. Electronically Signed: Ivis Engle MD at 21:48 EDT Tel , Service support , Active Medications Acetaminophen (Tylenol) 650 mg PO Q4H PRN PRN PRN Reason: pain/fever Last Admin: 12/09/17 09:06 Dose: 650 mg Hydrocodone Bitart/Acetaminophen ([place] 5mg-325mg) 1 - 2 tablet PO Q4H PRN PRN PRN Reason: PAIN Last Admin: 12/10/17 09:12 Dose: 2 tablet Al Hydroxide/Mg Hydroxide (Mylanta Ii) 30 ml PO Q6H PRN PRN PRN Reason: Gastric burning Last Admin: 12/09/17 17:10 Dose: 30 ml Albuterol Sulfate (Ventolin Aerosols) 2.5 mg INHALATION Q4H PRN PRN PRN Reason: Asthma Albuterol Sulfate (Ventolin Aerosols) 2.5 mg INHALATION Q6HWA.RT [facility] Last Admin: 12/10/17 07:32 Dose: Not Given Budesonide (Pulmicort Aerosol) 0.5 mg INHALATION Q12H.RT [facility] Last Admin: 12/10/17 07:32 Dose: Not Given Dexamethasone Sodium Phosphate (Decadron) 8 mg IV DAILY [facility] Stop: 12/11/17 10:01 Last Admin: 12/09/17 09:05 Dose: 8 mg Diltiazem HCl (Cardizem Cd) 120 mg PO DAILY [facility] Last Admin: 12/09/17 09:06 Dose: 120 mg Diphenoxylate HCl/Atropine (Lomotil) 1 tablet PO 4X/DAY PRN PRN Reason: Diarrhea Last Admin: 12/07/17 19:13 Dose: 1 tablet Hydrocortisone Acetate (Anusol Hc) 25 mg RECTAL BID [facility] Last Admin: 12/10/17 09:38 Dose: Not Given Pantoprazole Sodium 40 mg/ (Sodium Chloride) 110 mls @ 330 mls/hr IV DAILY [facility] Last Admin: 12/09/17 09:05 Dose: 330 mls/hr Diltiazem HCl 125 mg/ Dextrose 125 mls @ 5 mls/hr CONT INF .Q25H [facility] PRN Reason: 5 MG/HR Last Admin: 12/09/17 21:46 Dose: 5 mls/hr Lidocaine/Prilocaine (Emla Cream W/Tegaderm) 0 gm TOPICAL DAILY PRN PRN Reason: NOT SPECIFIED Magnesium Hydroxide (Milk Of Magnesia) 30 ml PO DAILY PRN PRN PRN Reason: Constipation Morphine Sulfate () 2 mg IV Q2H PRN PRN PRN Reason: SEVERE PAIN (6-10/10) Last Admin: 12/10/17 00:59 Dose: 2 mg Nitroglycerin (Nitrostat) 0.4 mg SUBLINGUAL Q5M PRN PRN Reason: CARDIAC/CHEST PAIN Last Admin: 12/09/17 18:54 Dose: 0.4 mg Nutritional Formula (Lactose Free) (Ensure Enlive) 120 ml PO 4X/DAY [facility] Last Admin: 12/10/17 09:37 Dose: Not Given Ondansetron HCl (Zofran) 8 mg IV Q6H PRN PRN PRN Reason: NAUSEA/ VOMITING Last Admin: 12/09/17 06:31 Dose: 8 mg Pravastatin Sodium (Pravachol) 20 mg PO QHS [facility] Last Admin: 12/09/17 21:48 Dose: Not Given Promethazine HCl (Phenergan) 25 mg IV Q6H PRN PRN PRN Reason: NAUSEA/VOMITING Last Admin: 12/09/17 09:09 Dose: 25 mg Sodium Chloride () 5 - 30 ml IV UD PRN PRN Reason: SALINE FLUSH Last Admin: 12/10/17 00:59 Dose: 10 ml Zolpidem Tartrate (Ambien (Generic)) 5 mg PO QHS PRN PRN PRN Reason: INSOMNIA Last Admin: 12/08/17 22:21 Dose: 5 mg Code Visit Inpatient E&M: 47601 [facility] Hosp L3
--- NOTE | 2017-12-10 10:01 | PN_ITS ---
Patient Problems: Active and Suspected Problems (Last Reviewed 12/03/17 @ 08:50 by Ana Mckinney) Chemotherapy induced nausea and vomiting (Acute) Chemo-induced gastroenteritis (Acute) Positive fecal occult blood test (Acute) Subjective: Patient was transferred from a regular nursing floor to progressive care unit after she developed significant chest pain and went into A. fib with RVR was started on Cardizem drip. Patient converted back to sinus rhythm on the morning of 12/10/2017. Telemetry monitoring currently demonstrates frequent PACs. Admitted to his stools being formed now Objective: GENERAL: cooperative HEENT: Clear conjunctiva, moist oral mucosa NECK; supple, normal thyroid, no distended JVD. CHEST: Diminished to auscultation bilaterally, HEART: Regular S1 S2, no audible murmurs ABDOMEN: soft, non-tender, normoactive bowel sounds, RECTAL: deferred EXTREMITIES: No edema, no clubbing, no cyanosis. DRAPERY MAKER: Awake; no lateralizing signs. SKIN: No Rash Vitals/I&O's: Vital Signs Temp Pulse Resp BP Pulse Ox 98.2 F 72 18 142/63 H 97 12/10/17 09:00 12/10/17 09:00 12/10/17 09:00 12/10/17 09:00 12/10/17 09:00 Oxygen Flow Rate (L/min) 2 Oxygen Delivery Method Nasal Cannula Weight: 79.7 kg Body Mass Index (BMI) 29.2 Intake and Output for Last 24 Hours 12/08/17 12/09/17 12/10/17 23:59 23:59 23:59 Intake Total 1327 / 1327 510 / 510 1036 / 1036 Output Total 700 / 700 Balance 1327 / 1327 510 / 510 336 / 336 Microbiology Past 72 Hours 12/07/17 12:00 Stool Enteric Bacteriology - Final 12/07/17 12:00 Stool C. difficile DNA Amplification - Final 12/07/17 12:00 Stool Stool Lactoferrin - Final 12/07/17 12:00 Stool Stool Occult Blood (СВЕТЛАНА) - Final Occult Blood Positive Laboratory Results 12/07/17 05:10: Diff Path Review Reviewed 12/09/17 19:33: Troponin I < 0.015 12/09/17 19:33: D-Dimer Quant (PE/DVT) 2.06 H* 12/09/17 22:20: Troponin I < 0.015 12/10/17 01:20: Troponin I < 0.015 Current Medications Acetaminophen (Tylenol) 650 mg PO Q4H PRN PRN PRN Reason: pain/fever Last Admin: 12/09/17 09:06 Dose: 650 mg Hydrocodone Bitart/Acetaminophen (Ramsay 5mg-325mg) 1 - 2 tablet PO Q4H PRN PRN PRN Reason: PAIN Last Admin: 12/10/17 09:12 Dose: 2 tablet Al Hydroxide/Mg Hydroxide (Mylanta Ii) 30 ml PO Q6H PRN PRN PRN Reason: Gastric burning Last Admin: 12/09/17 17:10 Dose: 30 ml Albuterol Sulfate (Ventolin Aerosols) 2.5 mg INHALATION Q4H PRN PRN PRN Reason: Asthma Albuterol Sulfate (Ventolin Aerosols) 2.5 mg INHALATION Q6HWA.RT [facility] Last Admin: 12/10/17 07:32 Dose: Not Given Budesonide (Pulmicort Aerosol) 0.5 mg INHALATION Q12H.RT [facility] Last Admin: 12/10/17 07:32 Dose: Not Given Dexamethasone Sodium Phosphate (Decadron) 8 mg IV DAILY [facility] Stop: 12/11/17 10:01 Last Admin: 12/09/17 09:05 Dose: 8 mg Diltiazem HCl (Cardizem Cd) 120 mg PO DAILY [facility] Last Admin: 12/09/17 09:06 Dose: 120 mg Diphenoxylate HCl/Atropine (Lomotil) 1 tablet PO 4X/DAY PRN PRN Reason: Diarrhea Last Admin: 12/07/17 19:13 Dose: 1 tablet Hydrocortisone Acetate (Anusol Hc) 25 mg RECTAL BID [facility] Last Admin: 12/10/17 09:38 Dose: Not Given Pantoprazole Sodium 40 mg/ (Sodium Chloride) 110 mls @ 330 mls/hr IV DAILY [facility] Last Admin: 12/09/17 09:05 Dose: 330 mls/hr Diltiazem HCl 125 mg/ Dextrose 125 mls @ 5 mls/hr CONT INF .Q25H [facility] PRN Reason: 5 MG/HR Last Admin: 12/09/17 21:46 Dose: 5 mls/hr Lidocaine/Prilocaine (Emla Cream W/Tegaderm) 0 gm TOPICAL DAILY PRN PRN Reason: NOT SPECIFIED Magnesium Hydroxide (Milk Of Magnesia) 30 ml PO DAILY PRN PRN PRN Reason: Constipation Morphine Sulfate () 2 mg IV Q2H PRN PRN PRN Reason: SEVERE PAIN (6-10/10) Last Admin: 12/10/17 00:59 Dose: 2 mg Nitroglycerin (Nitrostat) 0.4 mg SUBLINGUAL Q5M PRN PRN Reason: CARDIAC/CHEST PAIN Last Admin: 12/09/17 18:54 Dose: 0.4 mg Nutritional Formula (Lactose Free) (Ensure Enlive) 120 ml PO 4X/DAY [facility] Last Admin: 12/10/17 09:37 Dose: Not Given Ondansetron HCl (Zofran) 8 mg IV Q6H PRN PRN PRN Reason: NAUSEA/ VOMITING Last Admin: 12/09/17 06:31 Dose: 8 mg Pravastatin Sodium (Pravachol) 20 mg PO QHS [facility] Last Admin: 12/09/17 21:48 Dose: Not Given Promethazine HCl (Phenergan) 25 mg IV Q6H PRN PRN PRN Reason: NAUSEA/VOMITING Last Admin: 12/09/17 09:09 Dose: 25 mg Sodium Chloride () 5 - 30 ml IV UD PRN PRN Reason: SALINE FLUSH Last Admin: 12/10/17 00:59 Dose: 10 ml Zolpidem Tartrate (Ambien (Generic)) 5 mg PO QHS PRN PRN PRN Reason: INSOMNIA Last Admin: 12/08/17 22:21 Dose: 5 mg Medical Necessity - Tobacco Use Smoking Status: Never smoker Assessment/Plan Active and Suspected Problems (Last Reviewed 12/03/17 @ 08:50 by Ana Mckinney) Chemotherapy induced nausea and vomiting (Acute) Chemo-induced gastroenteritis (Acute) Positive fecal occult blood test (Acute) Patient is a 71-year-old lady with history of breast cancer diagnosed in August 2017 for which she underwent radical mastectomy. Currently on chemotherapy with Taxotere and Cytoxan presented with nausea and vomiting. Admitted to regular nursing floor where patient is being managed. 1. Chemo induced gastroenterocolitis: patient has been managed symptomatically with IV fluids antinausea medication and correction of electrolyte 2. Hypokalemia secondary to above corrected per protocol 3. Gastro-occult positive stools patient has history of hemorrhoids underwent colonoscopy in [place] [address] Shell no malignancy was found 4. Right breast CA status post radical mastectomy currently on chemo 5. Hypertension-blood pressure controlled, home medications continued with dose adjustment as needed 6. Hiatal hernia with history of reflux symptoms on PPI 7. Mild intermittent asthma 8. History of IVC filter 9. Proximal A. fib patient converted back to sinus rhythm on Cardizem. Echo ordered for subsequent evaluation consult placed to Dr. Mickey ratliff 10. DVT prophylaxis Lovenox Clinical Impression(s) from Imaging Studies Abdomen X-Ray 12/06/17 16:40 IMPRESSION: Mild ileus suggested. Nonobstructive bowel gas pattern. Mild left basilar atelectasis or developing infiltrate. at 1716 Reported and signed by: Raven Jacobo MD Electronically Signed: Raven Jacobo MD at 17:15 EDT Tel , Service support , Chest CTA 12/09/17 20:50 IMPRESSION: Large hiatal hernia similar to prior studies, compressing the left atrium. Coronary calcification. No evidence of pulmonary embolism. Evidence of old granulomatous disease. No evidence of focal infiltrate. Electronically Signed: Ivis Engle MD at 21:48 EDT Tel , Service support , Active Medications Acetaminophen (Tylenol) 650 mg PO Q4H PRN PRN PRN Reason: pain/fever Last Admin: 12/09/17 09:06 Dose: 650 mg Hydrocodone Bitart/Acetaminophen (Ramsay 5mg-325mg) 1 - 2 tablet PO Q4H PRN PRN PRN Reason: PAIN Last Admin: 12/10/17 09:12 Dose: 2 tablet Al Hydroxide/Mg Hydroxide (Mylanta Ii) 30 ml PO Q6H PRN PRN PRN Reason: Gastric burning Last Admin: 12/09/17 17:10 Dose: 30 ml Albuterol Sulfate (Ventolin Aerosols) 2.5 mg INHALATION Q4H PRN PRN PRN Reason: Asthma Albuterol Sulfate (Ventolin Aerosols) 2.5 mg INHALATION Q6HWA.RT [facility] Last Admin: 12/10/17 07:32 Dose: Not Given Budesonide (Pulmicort Aerosol) 0.5 mg INHALATION Q12H.RT [facility] Last Admin: 12/10/17 07:32 Dose: Not Given Dexamethasone Sodium Phosphate (Decadron) 8 mg IV DAILY [facility] Stop: 12/11/17 10:01 Last Admin: 12/09/17 09:05 Dose: 8 mg Diltiazem HCl (Cardizem Cd) 120 mg PO DAILY [facility] Last Admin: 12/09/17 09:06 Dose: 120 mg Diphenoxylate HCl/Atropine (Lomotil) 1 tablet PO 4X/DAY PRN PRN Reason: Diarrhea Last Admin: 12/07/17 19:13 Dose: 1 tablet Hydrocortisone Acetate (Anusol Hc) 25 mg RECTAL BID [facility] Last Admin: 12/10/17 09:38 Dose: Not Given Pantoprazole Sodium 40 mg/ (Sodium Chloride) 110 mls @ 330 mls/hr IV DAILY [facility] Last Admin: 12/09/17 09:05 Dose: 330 mls/hr Diltiazem HCl 125 mg/ Dextrose 125 mls @ 5 mls/hr CONT INF .Q25H [facility] PRN Reason: 5 MG/HR Last Admin: 12/09/17 21:46 Dose: 5 mls/hr Lidocaine/Prilocaine (Emla Cream W/Tegaderm) 0 gm TOPICAL DAILY PRN PRN Reason: NOT SPECIFIED Magnesium Hydroxide (Milk Of Magnesia) 30 ml PO DAILY PRN PRN PRN Reason: Constipation Morphine Sulfate () 2 mg IV Q2H PRN PRN PRN Reason: SEVERE PAIN (6-10/10) Last Admin: 12/10/17 00:59 Dose: 2 mg Nitroglycerin (Nitrostat) 0.4 mg SUBLINGUAL Q5M PRN PRN Reason: CARDIAC/CHEST PAIN Last Admin: 12/09/17 18:54 Dose: 0.4 mg Nutritional Formula (Lactose Free) (Ensure Enlive) 120 ml PO 4X/DAY [facility] Last Admin: 12/10/17 09:37 Dose: Not Given Ondansetron HCl (Zofran) 8 mg IV Q6H PRN PRN PRN Reason: NAUSEA/ VOMITING Last Admin: 12/09/17 06:31 Dose: 8 mg Pravastatin Sodium (Pravachol) 20 mg PO QHS [facility] Last Admin: 12/09/17 21:48 Dose: Not Given Promethazine HCl (Phenergan) 25 mg IV Q6H PRN PRN PRN Reason: NAUSEA/VOMITING Last Admin: 12/09/17 09:09 Dose: 25 mg Sodium Chloride () 5 - 30 ml IV UD PRN PRN Reason: SALINE FLUSH Last Admin: 12/10/17 00:59 Dose: 10 ml Zolpidem Tartrate (Ambien (Generic)) 5 mg PO QHS PRN PRN PRN Reason: INSOMNIA Last Admin: 12/08/17 22:21 Dose: 5 mg Code Visit Inpatient E&M: 92840 Subs Hosp L3
--- NOTE | 2017-12-10 10:01 | ECHOCS_ITS ---
Reason For Study: A. fib/flutter Procedure This was a 2D Doppler, Color Flow transthoracic echocardiogram. The exam was of fair technical quality due to diminished acoustic windows. Exam performed portable in patient room. Left Ventricle Normal LV size. Left ventricular systolic function is normal. The estimated ejection fraction is 65 %. Transmitral diastolic flow velocities suggest moderate (stage 2) diastolic dysfunction (pseudonormal pattern). No regional wall motion abnormalities noted. Right Ventricle Normal RV size. Normal systolic function. Atria Normal left atrium. The right atrium is mildly enlarged. No doppler evidence for ASD. Mitral Valve There is mild mitral annular calcification. Extension of the mitral annular calcification onto the posterior mitral valve leaflet. Trivial mitral valve insufficiency. Tricuspid Valve Normal tricuspid valve. Mild tricuspid valve insufficiency. Right ventricular systolic pressure estimated to be 42 mmHg. Aortic Valve Trisinus/trileaflet aortic valve. Normal aortic valve. Trivial aortic valve insufficiency. Pulmonic Valve The pulmonic valve is not well visualized. Trivial pulmonic valve insufficiency. Great Vessels Normal sized aortic root. Pericardium/Pleural No pericardial effusion. MMode/2D Measurements & Calculations LVIDd: 4.2 cm IVSd: 1.2 cm Ao root diam: 3.2 cm LVIDs: 2.2 cm LVPWd: 1.1 cm FS: 47.2 % LAV(MOD-bp): 60.6 ml LA A4 area: 26.7 cm2 RA A4 area: 18.9 cm2 LAV(MOD-bp) Indexed: 32.4 ml/m2 LAV(MOD-sp2): 40.2 ml LAV(MOD-sp4): 89.6 ml Doppler Measurements & Calculations MV E max matthew: 92.8 cm/sec Lat Peak E' Matthew: 9.4 cm/sec Med Peak E' Matthew: 7.6 cm/sec MV A max matthew: 77.2 cm/sec E/E' lat: 9.8 E/E' med: 12.3 MV E/A: 1.2 Ao V2 max: 163.9 cm/sec LV V1 max: 112.5 cm/sec PA V2 max: 106.0 cm/sec Ao max P.7 mmHg LV V1 max P.1 mmHg TR max matthew: 310.5 cm/sec TR max P.7 mmHg Interpretation Summary Left ventricular systolic function is normal. The estimated ejection fraction is 65 %. The right atrium is mildly enlarged. There is mild mitral annular calcification. Extension of the mitral annular calcification onto the posterior mitral valve leaflet. Trivial mitral valve insufficiency. Mild tricuspid valve insufficiency. Trivial aortic valve insufficiency. Trivial pulmonic valve insufficiency. Right ventricular systolic pressure estimated to be 42 mmHg. Transmitral diastolic flow velocities suggest diastolic dysfunction (pseudonormal pattern). Ordering Physician: Ric Alford Referring Physician: Jessica Aguero M.D. Performed By: Nika Edward RDCS
[2017-12-10] MEDS: dilTIAZem CD 120 MG Capsule PO ×2 (10:23→22:58)
--- NOTE | 2017-12-10 15:26 | PCM.PN.CARD ---
Subjectve: The patient is a 71-year-old white female with a past cardiovascular history which has included underlying disease and supraventricular tachyarrhythmias superimposed upon a history of underlying CAD-minor, hyperlipidemia, who is now undergoing evaluation care for breast carcinoma, status post recent chemotherapy, who presents for concerns of nausea, emesis, and diarrhea and is found to have episodes of paroxysmal atrial fibrillation with rapid ventricular response. The patient states that she has noted, during her recent chemotherapy and prior to her admission to the hospital, the sensation of palpitations, chest discomfort, feeling somewhat more short of breath and dyspnea, but not having ongoing orthopnea, PND, worsening peripheral pitting edema, near syncope or syncope. She was brought into the hospital for further evaluation care. She appeared to have on cardiac telemetry episodes of paroxysmal atrial fibrillation with RVR. She was treated with IV diltiazem therapy. She had spontaneous return to sinus rhythm. She has had cardiac enzymes performed which have been negative. She had ECGs performed which have demonstrated sinus rhythm with PACs with nonspecific ST/T-wave abnormalities. She underwent evaluation with a transthoracic echocardiogram. Her left ventricle was thought to be normal with an LVEF of 65%, mild right atrial enlargement, mild mitral annular calcification, extension of the mitral annular calcification on the posterior mitral valve leaflet with trivial MR, mild TR, trivial AI, trivial PI, and estimated RV systolic pressure 42 mmHg, as well as decreased diastolic compliance. She has had a previous 24-hour Holter monitor performed in December 2012. At that time she was noted to have an underlying sinus rhythm with short burst of supraventricular tachyarrhythmia noted with the longest being a 7 beat run and noted the fastest being 179 bpm which included a 5 beat run. The patient underwent an exercise tolerance test in January 2016. This was a pharmacologic stress nuclear imaging study. This was considered negative for evidence of infarct or ischemia. The patient has a previous diagnostic cardiac catheterization performed at [place], [place] on 03/10/2001. According to reports she had minor coronary artery disease involving the dominant right coronary artery with a normal left ventriculogram. Objective: Vital Signs Temp Pulse Resp BP Pulse Ox 98.2 F 99 18 139/60 H 94 12/10/17 14:30 12/10/17 14:58 12/10/17 14:30 12/10/17 14:30 12/10/17 15:14 Oxygen Flow Rate (L/min) 2 Oxygen Delivery Method Nasal Cannula Weight: 175 lb 11.335 oz Body Mass Index (BMI) 29.2 Intake and Output for Last 24 Hours 12/08/17 12/09/17 12/10/17 23:59 23:59 23:59 Intake Total 1327 / 1327 510 / 510 1547 / 1547 Output Total 1000 / 1000 Balance 1327 / 1327 510 / 510 547 / 547 General: Awake, Alert, Oriented x 3, Cooperative, No Acute Distress HEENT: Atraumatic, Normocephalic, PERRL, EOMI, Sclera Non Icteric Neck: Supple, Good ROM, No JVD Lungs: Clear to auscultation Cardiovascular: Regular Rhythm, Premature Ectopic Beats, Normal S1, Normal S2 Vascular: No Carotid Bruits Abdomen: Bowel Sounds Present, Soft, Non Tender Extremities: No Cyanosis, No Clubbing, Trace RLE Edema, Trace LLE Edema Lymphatic: No Lymph Node Enlargement Psych/Mental Status: Appropriate, Normal Affect 12/09/17 19:33: Troponin I < 0.015 12/09/17 19:33: D-Dimer Quant (PE/DVT) 2.06 H* 12/09/17 22:20: Troponin I < 0.015 12/10/17 01:20: Troponin I < 0.015 Rhythm: Sinus rhythm; PACs; intermittent episodes compatible with PAF EKG: As noted above ECHO: As noted above Stress Test: As noted above Cardiac Cath: As noted above Chest CT Scan: Per radiology: Findings compatible coronary artery calcification; no great vessel disease; no thromboembolic disease Medical Necessity - Tobacco Use Smoking Status: Never smoker Assessment/Plan 1. Paroxysmal atrial fibrillation They are to have episodes of PAF. At the moment she appears to be back in sinus rhythm with PACs. The etiology may be multifactorial. This could include a combination of factors including age, previously known cardiac dysrhythmias, underlying noncardiovascular conditions including breast carcinoma with ongoing chemotherapy with subsequent episodes of her gastrointestinal related issues with nausea, emesis, and diarrhea, etc. There is been no findings suggestive of an acute coronary syndrome or acute CHF/pulmonary edema. There is been no findings for an acute pericardial related issues. There have been no findings for any great vessel disease or thromboembolic disease. At the present time the patient will continue medical management. This will include rate limiting therapy. This will include increasing her diltiazem dose. She may eventually, if she has recurrent episodes, require antiarrhythmic therapy. The patient should also be considered for anticoagulant therapy, based upon a [id number] or of approximately 3, unless otherwise contraindicated. 2. PACs Patient does have frequent PACs. She may be sensitive to these. Again an attempt will be made to assist with this by increasing her diltiazem therapy. 3. Hypertension The patient has a history of hypertension. She will continue medical management be as deemed appropriate. 4. Hyperlipidemia The patient should continue lipid-lowering therapy. 5. Breast carcinoma She is undergoing evaluation care for breast carcinoma. This is included chemotherapy. Her symptoms started following her chemotherapy and following her gastrointestinal related issues. She will need to continue evaluation care for her breast carcinoma and appropriate chemotherapy agents and adjustments per her oncologist. Comment: The patient's case has been discussed and reviewed with the patient and Dr. Alford. This note was generated with [employer] dictation software. It may contain incorrect words, spelling, and punctuation that were not noted in checking the note before signing.
--- NOTE | 2017-12-10 15:41 | PN.CARD_ITS ---
Subjectve: The patient is a 71-year-old white female with a past cardiovascular history which has included underlying disease and supraventricular tachyarrhythmias superimposed upon a history of underlying CAD-minor, hyperlipidemia, who is now undergoing evaluation care for breast carcinoma, status post recent chemotherapy , who presents for concerns of nausea, emesis, and diarrhea and is found to have episodes of paroxysmal atrial fibrillation with rapid ventricular response. The patient states that she has noted, during her recent chemotherapy and prior to her admission to the hospital, the sensation of palpitations, chest discomfort, feeling somewhat more short of breath and dyspnea, but not having ongoing orthopnea, PND, worsening peripheral pitting edema, near syncope or syncope. She was brought into the hospital for further evaluation care. She appeared to have on cardiac telemetry episodes of paroxysmal atrial fibrillation with RVR. She was treated with IV diltiazem therapy. She had spontaneous return to sinus rhythm. She has had cardiac enzymes performed which have been negative. She had ECGs performed which have demonstrated sinus rhythm with PACs with nonspecific ST/T- wave abnormalities. She underwent evaluation with a transthoracic echocardiogram. Her left ventricle was thought to be normal with an LVEF of 65%, mild right atrial enlargement, mild mitral annular calcification, extension of the mitral annular calcification on the posterior mitral valve leaflet with trivial MR, mild TR, trivial AI, trivial PI, and estimated RV systolic pressure 42 mmHg, as well as decreased diastolic compliance. She has had a previous 24-hour Holter monitor performed in December 2012. At that time she was noted to have an underlying sinus rhythm with short burst of supraventricular tachyarrhythmia noted with the longest being a 7 beat run and noted the fastest being 179 bpm which included a 5 beat run. The patient underwent an exercise tolerance test in January 2016. This was a pharmacologic stress nuclear imaging study. This was considered negative for evidence of infarct or ischemia. The patient has a previous diagnostic cardiac catheterization performed at [place], [place] on 03/10/2001. According to reports she had minor coronary artery disease involving the dominant right coronary artery with a normal left ventriculogram. Objective: Vital Signs Temp Pulse Resp BP Pulse Ox 98.2 F 99 18 139/60 H 94 12/10/17 14:30 12/10/17 14:58 12/10/17 14:30 12/10/17 14:30 12/10/17 15:14 Oxygen Flow Rate (L/min) 2 Oxygen Delivery Method Nasal Cannula Weight: 175 lb 11.335 oz Body Mass Index (BMI) 29.2 Intake and Output for Last 24 Hours 12/08/17 12/09/17 12/10/17 23:59 23:59 23:59 Intake Total 1327 / 1327 510 / 510 1547 / 1547 Output Total 1000 / 1000 Balance 1327 / 1327 510 / 510 547 / 547 General: Awake, Alert, Oriented x 3, Cooperative, No Acute Distress HEENT: Atraumatic, Normocephalic, PERRL, EOMI, Sclera Non Icteric Neck: Supple, Good ROM, No JVD Lungs: Clear to auscultation Cardiovascular: Regular Rhythm, Premature Ectopic Beats, Normal S1, Normal S2 Vascular: No Carotid Bruits Abdomen: Bowel Sounds Present, Soft, Non Tender Extremities: No Cyanosis, No Clubbing, Trace RLE Edema, Trace LLE Edema Lymphatic: No Lymph Node Enlargement Psych/Mental Status: Appropriate, Normal Affect 12/09/17 19:33: Troponin I < 0.015 12/09/17 19:33: D-Dimer Quant (PE/DVT) 2.06 H* 12/09/17 22:20: Troponin I < 0.015 12/10/17 01:20: Troponin I < 0.015 Rhythm: Sinus rhythm; PACs; intermittent episodes compatible with PAF EKG: As noted above ECHO: As noted above Stress Test: As noted above Cardiac Cath: As noted above Chest CT Scan: Per radiology: Findings compatible coronary artery calcification ; no great vessel disease; no thromboembolic disease Medical Necessity - Tobacco Use Smoking Status: Never smoker Assessment/Plan 1. Paroxysmal atrial fibrillation They are to have episodes of PAF. At the moment she appears to be back in sinus rhythm with PACs. The etiology may be multifactorial. This could include a combination of factors including age, previously known cardiac dysrhythmias, underlying noncardiovascular conditions including breast carcinoma with ongoing chemotherapy with subsequent episodes of her gastrointestinal related issues with nausea, emesis, and diarrhea, etc. There is been no findings suggestive of an acute coronary syndrome or acute CHF/ pulmonary edema. There is been no findings for an acute pericardial related issues. There have been no findings for any great vessel disease or thromboembolic disease. At the present time the patient will continue medical management. This will include rate limiting therapy. This will include increasing her diltiazem dose. She may eventually, if she has recurrent episodes, require antiarrhythmic therapy. The patient should also be considered for anticoagulant therapy, based upon a [id number] or of approximately 3, unless otherwise contraindicated. 2. PACs Patient does have frequent PACs. She may be sensitive to these. Again an attempt will be made to assist with this by increasing her diltiazem therapy. 3. Hypertension The patient has a history of hypertension. She will continue medical management be as deemed appropriate. 4. Hyperlipidemia The patient should continue lipid-lowering therapy. 5. Breast carcinoma She is undergoing evaluation care for breast carcinoma. This is included chemotherapy. Her symptoms started following her chemotherapy and following her gastrointestinal related issues. She will need to continue evaluation care for her breast carcinoma and appropriate chemotherapy agents and adjustments per her oncologist. Comment: The patient's case has been discussed and reviewed with the patient and Dr. Alford. This note was generated with [employer] dictation software. It may contain incorrect words, spelling, and punctuation that were not noted in checking the note before signing.
[2017-12-10] MEDS: APIXABAN 5 MG TABLET PO (23:26)
[2017-12-10] MEDS: Zolpidem Tartrate 5 MG Tablet PO (23:26)
[2017-12-10] MEDS: Pravastatin 20 MG Tablet PO (23:26)
[2017-12-11] VITALS (12 sets, daily range): BP systolic 144–162; BP diastolic 56–88; PULSE 66–155; RESP 16–24; TEMP 36.5–36.8; O2SAT 92–95
[2017-12-11] MEDS: dilTIAZem CD 120 MG Capsule PO (09:05)
[2017-12-11] MEDS: APIXABAN 5 MG TABLET PO ×2 (09:05→22:42)
--- NOTE | 2017-12-11 10:42 | PN.CARD_ITS ---
Subjectve: The patient states she has continued to feel palpitations. However, she states the sensations are not as dramatic as they were when she first presented to the hospital. Objective: Vital Signs Temp Pulse Resp BP Pulse Ox 97.7 F L 106 H 18 161/72 H 92 12/11/17 08:30 12/11/17 08:30 12/11/17 08:30 12/11/17 08:30 12/11/17 08:49 Oxygen Flow Rate (L/min) 2 Oxygen Delivery Method Room Air Weight: 172 lb 6.424 oz Body Mass Index (BMI) 29.2 Intake and Output for Last 24 Hours 12/09/17 12/10/17 12/11/17 23:59 23:59 23:59 Intake Total 510 / 510 1907 / 1907 Output Total 1300 / 1300 Balance 510 / 510 607 / 607 General: Awake, Alert, Oriented x 3, Cooperative, No Acute Distress Neck: No JVD Lungs: Clear to auscultation Cardiovascular: Regular Rhythm, Premature Ectopic Beats, Normal S1, Normal S2 Abdomen: Bowel Sounds Present, Soft, Non Tender Extremities: No edema Rhythm: Sinus rhythm; episodes compatible with PAF; PACs Medical Necessity - Tobacco Use Smoking Status: Never smoker Assessment/Plan 1. Paroxysmal atrial fibrillation They are to have episodes of PAF. At the moment she appears to be back in sinus rhythm with PACs. However, she does have episodes compatible with PAF. The etiology may be multifactorial. This could include a combination of factors including age, previously known cardiac dysrhythmias, underlying noncardiovascular conditions including breast carcinoma with ongoing chemotherapy with subsequent episodes of her gastrointestinal related issues with nausea, emesis, and diarrhea, etc. There is been no findings suggestive of an acute coronary syndrome or acute CHF/ pulmonary edema. There is been no findings for an acute pericardial related issues. There have been no findings for any great vessel disease or thromboembolic disease. At the present time the patient will continue medical management. This will include rate limiting therapy. This will include increasing her diltiazem dose. Her diltiazem dose will be increased. She may eventually, if she has recurrent episodes, require antiarrhythmic therapy. The patient should also be considered for anticoagulant therapy, based upon a [id number] or of approximately 3, unless otherwise contraindicated. 2. PACs Patient does have frequent PACs. She may be sensitive to these. Again an attempt will be made to assist with this by increasing her diltiazem therapy. 3. Hypertension The patient has a history of hypertension. She will continue medical management be as deemed appropriate. 4. Hyperlipidemia The patient should continue lipid-lowering therapy. 5. Breast carcinoma She is undergoing evaluation care for breast carcinoma. This is included chemotherapy. Her symptoms started following her chemotherapy and following her gastrointestinal related issues. She will need to continue evaluation care for her breast carcinoma and appropriate chemotherapy agents and adjustments per her oncologist. Comment: The patient's case has been discussed and reviewed with the patient. This note was generated with [employer] dictation software. It may contain incorrect words, spelling, and punctuation that were not noted in checking the note before signing.
[2017-12-11] MEDS: Magnesium Hydroxide 30 ML UDC PO (11:27)
[2017-12-11] MEDS: proMETHazine 25 MG/ML Syringe IV ×2 (11:27→19:05)
[2017-12-11] MEDS: HYDROcodone Bitartrate/Apap 5/325 Tablet PO ×2 (12:13→22:39)
--- NOTE | 2017-12-11 19:42 | PCM.PROGNOTE ---
Patient Problems: Active and Suspected Problems (Last Reviewed 12/03/17 @ 08:50 by Ana Mckinney) Chemotherapy induced nausea and vomiting (Acute) Chemo-induced gastroenteritis (Acute) Positive fecal occult blood test (Acute) Subjective: She feels fair, tolerated solid food with some nausea. She denied of any chest pain or palpitations. - Physical Exam General: Alert, Oriented x3, Cooperative HEENT: Atraumatic, PERRLA Oral: Moist Mucosa, No Gingival or Mucosal Lesions/ Ulcerations Neck: Supple, No JVD, Negative Carotid Bruits Lungs: Clear to auscultation, Normal air movement, No rhonchi, No wheeze, No rales Cardiovascular: Regular rate, Regular Rhythm, Normal S1, Normal S2, No murmurs, No Ectopic Activity Abdomen: Bowel Sounds Present, Soft, Non Tender, Non-Distended, No Hepato-splenomegaly Extremities: No clubbing, No cyanosis, No edema Skin: No rashes, No breakdown Musculoskeletal: No Tenderness to Palpation of Joints or Extremities, No Muscle Wasting Lymphatic: No Cervical, Supraclavicular, or Inguinal Adenopathy Neurological: Cranial nerves II-XII grossly intact, Neuro grossly intact Psych/Mental Status: Normal Affect Vital Signs Temp Pulse Resp BP Pulse Ox 98.2 F 95 24 H 162/56 H 95 12/11/17 19:36 12/11/17 19:36 12/11/17 19:36 12/11/17 19:36 12/11/17 19:36 Oxygen Flow Rate (L/min) 2 Oxygen Delivery Method Room Air Weight: 172 lb 6.424 oz Body Mass Index (BMI) 29.2 Intake and Output for Last 24 Hours 12/09/17 12/10/17 12/11/17 23:59 23:59 23:59 Intake Total 510 / 510 1907 / 1907 1450 / 1450 Output Total 1300 / 1300 Balance 510 / 510 607 / 607 1450 / 1450 Diagnostic Data Abdomen X-Ray 12/06/17 16:40 IMPRESSION: Mild ileus suggested. Nonobstructive bowel gas pattern. Mild left basilar atelectasis or developing infiltrate. at 1716 Reported and signed by: Raven Jacobo MD Electronically Signed: Raven Jacobo MD at 17:15 EDT Tel , Service support , Chest CTA 12/09/17 20:50 IMPRESSION: Large hiatal hernia similar to prior studies, compressing the left atrium. Coronary calcification. No evidence of pulmonary embolism. Evidence of old granulomatous disease. No evidence of focal infiltrate. Electronically Signed: Ivis Engle MD at 21:48 EDT Tel , Service support , Medical Necessity - Tobacco Use Smoking Status: Never smoker Assessment/Plan Active and Suspected Problems (Last Reviewed 12/03/17 @ 08:50 by Ana Mckinney) Chemotherapy induced nausea and vomiting (Acute) Chemo-induced gastroenteritis (Acute) Positive fecal occult blood test (Acute) Patient is a 71-year-old lady with history of breast cancer diagnosed in August 2017 for which she underwent radical mastectomy. Currently on chemotherapy with Taxotere and Cytoxan presented with nausea and vomiting. Admitted to regular nursing floor where patient is being managed. 1. Chemo induced gastroenterocolitis: patient has been managed symptomatically with IV fluids antinausea medication and correction of electrolyte. Continue PT/OT. She states that she would not want to have another chemotherapy, but another cycle is about one month from now. Encourage her to continue conversation with oncologist regarding her chemotherapy. 2. Hypokalemia secondary to above corrected per protocol 3. Gastro-occult positive stools patient has history of hemorrhoids underwent colonoscopy in [place] [address] Shell no malignancy was found 4. Right breast CA status post radical mastectomy currently on chemo 5. Hypertension-blood pressure controlled, home medications continued with dose adjustment as needed 6. Hiatal hernia with history of reflux symptoms on PPI 7. Mild intermittent asthma 8. History of IVC filter 9. Proximal A. fib patient converted back to sinus rhythm on Cardizem. Appreciate Cardiology consultation. Continue Diltiazem PO. 10. DVT prophylaxis Lovenox Disposition: Home in 1 to 2 days. Code Visit Inpatient E&M: 36723 Subs Hosp L2
--- NOTE | 2017-12-11 19:46 | PN_ITS ---
Patient Problems: Active and Suspected Problems (Last Reviewed 12/03/17 @ 08:50 by Ana Mckinney) Chemotherapy induced nausea and vomiting (Acute) Chemo-induced gastroenteritis (Acute) Positive fecal occult blood test (Acute) Subjective: She feels fair, tolerated solid food with some nausea. She denied of any chest pain or palpitations. - Physical Exam General: Alert, Oriented x3, Cooperative HEENT: Atraumatic, PERRLA Oral: Moist Mucosa, No Gingival or Mucosal Lesions/ Ulcerations Neck: Supple, No JVD, Negative Carotid Bruits Lungs: Clear to auscultation, Normal air movement, No rhonchi, No wheeze, No rales Cardiovascular: Regular rate, Regular Rhythm, Normal S1, Normal S2, No murmurs, No Ectopic Activity Abdomen: Bowel Sounds Present, Soft, Non Tender, Non-Distended, No Hepato- splenomegaly Extremities: No clubbing, No cyanosis, No edema Skin: No rashes, No breakdown Musculoskeletal: No Tenderness to Palpation of Joints or Extremities, No Muscle Wasting Lymphatic: No Cervical, Supraclavicular, or Inguinal Adenopathy Neurological: Cranial nerves II-XII grossly intact, Neuro grossly intact Psych/Mental Status: Normal Affect Vital Signs Temp Pulse Resp BP Pulse Ox 98.2 F 95 24 H 162/56 H 95 12/11/17 19:36 12/11/17 19:36 12/11/17 19:36 12/11/17 19:36 12/11/17 19:36 Oxygen Flow Rate (L/min) 2 Oxygen Delivery Method Room Air Weight: 172 lb 6.424 oz Body Mass Index (BMI) 29.2 Intake and Output for Last 24 Hours 12/09/17 12/10/17 12/11/17 23:59 23:59 23:59 Intake Total 510 / 510 1907 / 1907 1450 / 1450 Output Total 1300 / 1300 Balance 510 / 510 607 / 607 1450 / 1450 Diagnostic Data Abdomen X-Ray 12/06/17 16:40 IMPRESSION: Mild ileus suggested. Nonobstructive bowel gas pattern. Mild left basilar atelectasis or developing infiltrate. at 1716 Reported and signed by: Raven Jacobo MD Electronically Signed: Raven Jacobo MD at 17:15 EDT Tel , Service support , Chest CTA 12/09/17 20:50 IMPRESSION: Large hiatal hernia similar to prior studies, compressing the left atrium. Coronary calcification. No evidence of pulmonary embolism. Evidence of old granulomatous disease. No evidence of focal infiltrate. Electronically Signed: Ivis Engle MD at 21:48 EDT Tel , Service support , Medical Necessity - Tobacco Use Smoking Status: Never smoker Assessment/Plan Active and Suspected Problems (Last Reviewed 12/03/17 @ 08:50 by Ana Mckinney) Chemotherapy induced nausea and vomiting (Acute) Chemo-induced gastroenteritis (Acute) Positive fecal occult blood test (Acute) Patient is a 71-year-old lady with history of breast cancer diagnosed in August 2017 for which she underwent radical mastectomy. Currently on chemotherapy with Taxotere and Cytoxan presented with nausea and vomiting. Admitted to regular nursing floor where patient is being managed. 1. Chemo induced gastroenterocolitis: patient has been managed symptomatically with IV fluids antinausea medication and correction of electrolyte. Continue PT/OT. She states that she would not want to have another chemotherapy , but another cycle is about one month from now. Encourage her to continue conversation with oncologist regarding her chemotherapy. 2. Hypokalemia secondary to above corrected per protocol 3. Gastro-occult positive stools patient has history of hemorrhoids underwent colonoscopy in [place] [address] Shell no malignancy was found 4. Right breast CA status post radical mastectomy currently on chemo 5. Hypertension-blood pressure controlled, home medications continued with dose adjustment as needed 6. Hiatal hernia with history of reflux symptoms on PPI 7. Mild intermittent asthma 8. History of IVC filter 9. Proximal A. fib patient converted back to sinus rhythm on Cardizem. Appreciate Cardiology consultation. Continue Diltiazem PO. 10. DVT prophylaxis Lovenox Disposition: Home in 1 to 2 days. Code Visit Inpatient E&M: 70028 Subs Hosp L2
[2017-12-11] MEDS: Zolpidem Tartrate 5 MG Tablet PO (22:39)
[2017-12-11] MEDS: dilTIAZem CD 180 MG Capsule PO (22:42)
[2017-12-11] MEDS: Pravastatin 20 MG Tablet PO (22:42)
[2017-12-12] VITALS (26 sets, daily range): BP systolic 111–152; BP diastolic 63–81; PULSE 71–128; RESP 16–26; TEMP 36.5–36.7; O2SAT 94–99
[2017-12-12] MEDS: 0.9% NaCl Peripheral Flush Adult/Peds IV (05:43)
[2017-12-12 06:19] LABS: Anion Gap 8 (5-15); BUN 25 mg/dL (7-18); BUN/Creat Ratio 37.7 RATIO (10-20); Calcium,Total 8.2 mg/dL (8.5-10.1); Chloride 104 mmol/L (98-107); Creatinine, Serum 0.66 mg/dL (0.55-1.02); EST Glomerular Filtration Rate 93 mL/min (>60); Est Glom Filt Rate - Afr Amer 112 mL/min (>60); Estimated Creatinine Clearance 45.09 ml/min; Glucose 139 mg/dL (74-106); Potassium 4.1 mmol/L (3.5-5.1); Sodium Level 140 mmol/L (136-145)
[2017-12-12 06:22] LABS: Hemoglobin 9.7 g/dl (12.0-15.0); Mean Corp Hgb Conc 32.3 g/gl (32-36); Mean Corpuscular Hgb 29.5 pg (27.0-32.0); Mean Corpuscular Volume 91.2 fL (81-99); Platelet Count 253 K/mm3 (150-450); RBC Distribution Width CV 13.6 % (11.6-14.6); RBC Distribution Width SD 43.3 fl (35.1-43.9); Red Blood Count 3.29 M/mm3 (4.2-5.4)
[2017-12-12 06:29] LABS: White Blood Count 33.7 K/mm3 (4.4-11.0)
--- NOTE | 2017-12-12 06:29 | NURSING ---
Critical result WBC 33.7 called to MCKENNA Cox
[2017-12-12 06:30] LABS: Scan Indicated on CBC? Y/N YES- FLAGS NOTED
[2017-12-12 06:35] LABS: Differential Comment SCAN
[2017-12-12] MEDS: APIXABAN 5 MG TABLET PO ×2 (08:26→22:13)
[2017-12-12] MEDS: dilTIAZem CD 180 MG Capsule PO ×2 (08:26→22:13)
--- NOTE | 2017-12-12 10:02 | PCM.PN.CARD ---
Subjectve: The patient continues with palpitations. She does have some chest discomfort along with her palpitations. Objective: Vital Signs Temp Pulse Resp BP Pulse Ox 98.0 F 71 22 H 151/64 H 96 12/12/17 05:45 12/12/17 07:08 12/12/17 05:45 12/12/17 05:45 12/12/17 07:15 Oxygen Flow Rate (L/min) 2 Oxygen Delivery Method Room Air Weight: 172 lb 13.478 oz Body Mass Index (BMI) 29.2 Intake and Output for Last 24 Hours 12/10/17 12/11/17 12/12/17 23:59 23:59 23:59 Intake Total 1907 / 1907 1909 120 / 120 Output Total 1300 / 1300 Balance 607 / 607 1909 120 / 120 General: Awake, Alert, Oriented x 3, Cooperative, No Acute Distress Neck: No JVD Lungs: Clear to auscultation Cardiovascular: Irregular Rhythm, Normal S1, Normal S2 Abdomen: Bowel Sounds Present, Soft, Non Tender Extremities: No edema 12/12/17 05:40: WBC 33.7 H*, RBC 3.29 L, Hgb 9.7 L, Hct 30.0 L, MCV 91.2, MCH 29.5, MCHC 32.3, RDW 13.6, RDW Differential 43.3, Plt Count 253, MPV 9.0 12/12/17 05:40: Sodium 140, Potassium 4.1, Chloride 104, Carbon Dioxide 28.0, Anion Gap 8, BUN 25 H, Creatinine 0.66, Est GFR (MDRD) Af Amer 112, Est GFR (MDRD) Non-Af 93, BUN/Creatinine Ratio 37.7 H, Glucose 139 H, Calcium 8.2 L Rhythm: Atrial fibrillation Medical Necessity - Tobacco Use Smoking Status: Never smoker Assessment/Plan 1. Paroxysmal atrial fibrillation The etiology may be multifactorial. This could include a combination of factors including age, previously known cardiac dysrhythmias, underlying noncardiovascular conditions including breast carcinoma with ongoing chemotherapy with subsequent episodes of her gastrointestinal related issues with nausea, emesis, and diarrhea, etc. There is been no findings suggestive of an acute coronary syndrome or acute CHF/pulmonary edema. There is been no findings for an acute pericardial related issues. There have been no findings for any great vessel disease or thromboembolic disease. At the present time the patient will continue medical management. This will include rate limiting therapy. However, as she continues with her atrial dysrhythmia with paroxysmal atrial fibrillation with rapid ventricular response despite adjusting her rate limiting medications she will now attempt additional antiarrhythmic therapy with IV amiodarone. The patient should also be considered for anticoagulant therapy, based upon a [id number] or of approximately 3, unless otherwise contraindicated. Also, based upon her recurrent events, with the association of chest discomfort, she will be considered for reevaluation of her coronary physiology with a pharmacologic stress nuclear imaging study. 2. PACs Again an attempt will be made to assist with this by increasing her diltiazem therapy. 3. Hypertension The patient has a history of hypertension. She will continue medical management be as deemed appropriate. This may require an agent other than diazepam to assist with her blood pressure control. 4. Hyperlipidemia The patient should continue lipid-lowering therapy. 5. Breast carcinoma She is undergoing evaluation care for breast carcinoma. This is included chemotherapy. Her symptoms started following her chemotherapy and following her gastrointestinal related issues. She will need to continue evaluation care for her breast carcinoma and appropriate chemotherapy agents and adjustments per her oncologist. Comment: The patient's case has been discussed and reviewed with the patient. This note was generated with [employer] dictation software. It may contain incorrect words, spelling, and punctuation that were not noted in checking the note before signing.
--- NOTE | 2017-12-12 10:08 | PN.CARD_ITS ---
Subjectve: The patient continues with palpitations. She does have some chest discomfort along with her palpitations. Objective: Vital Signs Temp Pulse Resp BP Pulse Ox 98.0 F 71 22 H 151/64 H 96 12/12/17 05:45 12/12/17 07:08 12/12/17 05:45 12/12/17 05:45 12/12/17 07:15 Oxygen Flow Rate (L/min) 2 Oxygen Delivery Method Room Air Weight: 172 lb 13.478 oz Body Mass Index (BMI) 29.2 Intake and Output for Last 24 Hours 12/10/17 12/11/17 12/12/17 23:59 23:59 23:59 Intake Total 1907 / 1907 1909 120 / 120 Output Total 1300 / 1300 Balance 607 / 607 1909 120 / 120 General: Awake, Alert, Oriented x 3, Cooperative, No Acute Distress Neck: No JVD Lungs: Clear to auscultation Cardiovascular: Irregular Rhythm, Normal S1, Normal S2 Abdomen: Bowel Sounds Present, Soft, Non Tender Extremities: No edema 12/12/17 05:40: WBC 33.7 H*, RBC 3.29 L, Hgb 9.7 L, Hct 30.0 L, MCV 91.2, MCH 29.5, MCHC 32.3, RDW 13.6, RDW Differential 43.3, Plt Count 253, MPV 9.0 12/12/17 05:40: Sodium 140, Potassium 4.1, Chloride 104, Carbon Dioxide 28.0, Anion Gap 8, BUN 25 H, Creatinine 0.66, Est GFR (MDRD) Af Amer 112, Est GFR ( MDRD) Non-Af 93, BUN/Creatinine Ratio 37.7 H, Glucose 139 H, Calcium 8.2 L Rhythm: Atrial fibrillation Medical Necessity - Tobacco Use Smoking Status: Never smoker Assessment/Plan 1. Paroxysmal atrial fibrillation The etiology may be multifactorial. This could include a combination of factors including age, previously known cardiac dysrhythmias, underlying noncardiovascular conditions including breast carcinoma with ongoing chemotherapy with subsequent episodes of her gastrointestinal related issues with nausea, emesis, and diarrhea, etc. There is been no findings suggestive of an acute coronary syndrome or acute CHF/ pulmonary edema. There is been no findings for an acute pericardial related issues. There have been no findings for any great vessel disease or thromboembolic disease. At the present time the patient will continue medical management. This will include rate limiting therapy. However, as she continues with her atrial dysrhythmia with paroxysmal atrial fibrillation with rapid ventricular response despite adjusting her rate limiting medications she will now attempt additional antiarrhythmic therapy with IV amiodarone. The patient should also be considered for anticoagulant therapy, based upon a [id number] or of approximately 3, unless otherwise contraindicated. Also, based upon her recurrent events, with the association of chest discomfort , she will be considered for reevaluation of her coronary physiology with a pharmacologic stress nuclear imaging study. 2. PACs Again an attempt will be made to assist with this by increasing her diltiazem therapy. 3. Hypertension The patient has a history of hypertension. She will continue medical management be as deemed appropriate. This may require an agent other than diazepam to assist with her blood pressure control. 4. Hyperlipidemia The patient should continue lipid-lowering therapy. 5. Breast carcinoma She is undergoing evaluation care for breast carcinoma. This is included chemotherapy. Her symptoms started following her chemotherapy and following her gastrointestinal related issues. She will need to continue evaluation care for her breast carcinoma and appropriate chemotherapy agents and adjustments per her oncologist. Comment: The patient's case has been discussed and reviewed with the patient. This note was generated with [employer] dictation software. It may contain incorrect words, spelling, and punctuation that were not noted in checking the note before signing.
[2017-12-12 13:17] LABS: Pathologist Review Reviewed
[2017-12-12] MEDS: HYDROcodone Bitartrate/Apap 5/325 Tablet PO ×2 (13:36→22:12)
--- NOTE | 2017-12-12 15:35 | ONC.PN.INPT ---
- Problem List (1) Positive fecal occult blood test Status: Acute (2) Chemotherapy induced nausea and vomiting Status: Acute (3) Primary cancer of right female breast Status: Chronic Subjective Date of Service:: 12/12/17 N&V ALL MORNING AND DIARRHEA- STATUS POST CHEMO 71-year-old woman was diagnosed with right breast cancer on September 12, 2017. Core biopsy showed invasive ductal carcinoma, ER NE positive, HER-2 negative. She underwent right modified radical mastectomy with sentinel node biopsy on October 01, 2017. Pathology showed invasive ductal carcinoma, tumor size 1.86 cm, grade 2, sentinel nodes 2 out of 2 negative. Oncotype DX score 31. She stared Arimidex in October 2017. She received her first cycle of adjuvant chemotherapy with Taxotere and Cytoxan on December 03, 2017. She developed nausea & vomiting, came to the hospital and developed diarrhea. Nausea/vomiting and diarrhea has resolved. She has developed arrhythmia and undergoing cardiac evaluation. Past Medical History: Chronic Problems (Last Reviewed 12/03/17 @ 08:50 by Ana Mckinney) Asthma (Chronic) GERD (Chronic) Hypertension (Chronic) Obesity (Chronic) Jody filter in place (Chronic) Encounter for screening for malignant neoplasm of colon (Chronic) Primary cancer of right female breast (Chronic) Educational circumstance (Chronic) Chemotherapy management, encounter for (Chronic) Past Medical History (Last Reviewed 12/03/17 @ 08:50 by Ana Mckinney) Anemia (Acute) Asthma (Acute) Breast cancer (Acute) CAD (coronary artery disease) (Acute) COPD (chronic obstructive pulmonary disease) (Acute) Constipation (Acute) GERD (gastroesophageal reflux disease) (Acute) Hemorrhoid (Acute) History of incisional hernia repair (Acute) Hypercholesterolemia (Acute) Insomnia (Acute) Obesity (Acute) PVD (peripheral vascular disease) (Acute) Rectal prolapse (Acute) port placement (Acute) HTN (hypertension) (Chronic) Past Surgical History (Last Reviewed 12/03/17 @ 08:50 by Ana Mckinney) Hx of mastectomy (Acute) S/P appendectomy (Acute) S/P carpal tunnel release (Acute) S/P cataract extraction (Acute) S/P hysterectomy (Acute) S/P lumbar discectomy (Acute) S/P partial thyroidectomy (Acute) S/P revision of total knee (Acute) S/P right breast biopsy (Acute) S/P total knee replacement (Acute) Maternal Family History: Family History (Last Reviewed 12/03/17 @ 08:50 by Ana Mckinney) Brother Diabetes Heart disease Sister Breast cancer Mother Cancer Aunt Breast cancer Grandmother Cancer Family History: No pertinent history - Social History Smoking Status: Never smoker Review of Systems Constitutional:: Reports: Fatigue. Denies: Fever, Sweats Cardiovascular:: Reports: Irregular heartbeat Respiratory: Denies: Cough, Hemoptysis, Shortness of Breath, Wheezing Gastrointestinal:: Denies: Abdominal pain, Nausea, Vomiting, Diarrhea, Constipation, Hematochezia Neurological:: Denies: Headache, Dizziness, Visual changes, Tinnitus, Hearing loss Vital Signs Height 5 ft 5 in Weight: 78.4 kg Weight in Pounds 172.8 lbs Pulse Ox 95 Temperature 98.0 F Pulse Rate 80 Respiratory Rate 24 Blood Pressure [BP] 132/63 Blood Pressure 127/66 Blood Pressure Position [BP] Semi-Fowlers Blood Pressure Position Semi-Fowlers - Physical Exam General: Alert, Oriented x3, No apparent distress Laboratory Data: Laboratory Tests 12/12/17 12/12/17 Range/Units 05:40 05:40 WBC 33.7 H* (4.4-11.0) K/mm3 RBC 3.29 L (4.2-5.4) M/mm3 Hgb 9.7 L (12.0-15.0) g/dl Hct 30.0 L (37-47) % MCV 91.2 (81-99) fL MCH 29.5 (27.0-32.0) pg MCHC 32.3 (32-36) g/gl RDW 13.6 (11.6-14.6) % RDW Differential 43.3 (35.1-43.9) fl Plt Count 253 (150-450) K/mm3 MPV 9.0 (6.2-12.0) fl Differential Comment SCAN Diff Path Review Reviewed Sodium 140 (136-145) mmol/L Potassium 4.1 (3.5-5.1) mmol/L Chloride 104 (98-107) mmol/L Carbon Dioxide 28.0 (21.0-32.0) mmol/L Anion Gap 8 (5-15) BUN 25 H (7-18) mg/dL Creatinine 0.66 (0.55-1.02) mg/dL Estim Creat Clear Calc 45.09 ml/min Est GFR (MDRD) Af Amer 112 (>60) mL/min Est GFR (MDRD) Non-Af 93 (>60) mL/min BUN/Creatinine Ratio 37.7 H (10-20) RATIO Glucose 139 H (74-106) mg/dL Calcium 8.2 L (8.5-10.1) mg/dL Diagnostic Data: Diagnostic Data Abdomen X-Ray 12/06/17 16:40 IMPRESSION: Mild ileus suggested. Nonobstructive bowel gas pattern. Mild left basilar atelectasis or developing infiltrate. at 1716 Reported and signed by: Raven Jacobo MD Electronically Signed: Raven Jacobo MD at 17:15 EDT Tel , Service support , Chest CTA 12/09/17 20:50 IMPRESSION: Large hiatal hernia similar to prior studies, compressing the left atrium. Coronary calcification. No evidence of pulmonary embolism. Evidence of old granulomatous disease. No evidence of focal infiltrate. Electronically Signed: Ivis Engle MD at 21:48 EDT Tel , Service support , Assessment and Plan Chemotherapy related nausea/vomiting and Diarrhea-resolved. Improving after admission. Occult blood positive stools-had colonoscopy in September. Cardiac arrhythmia. Suggestions: To continue cardiac work up. If stable and discharged, should follow up in the [facility]. Thanks. Medications: Medications Added to Medication List This Visit Category Date Time Status Amiodarone HCl/Dextrose [Nexterone 360 mg/200 ml Bag] Med 12/12/17 16:25 Active 360 mg in 200 ml CONT INF 0.5 mg/min Amiodarone HCl/Dextrose [Nexterone 360 mg/200 ml Bag] Med 12/12/17 10:25 Active 360 mg in 200 ml CONT INF 1 mg/min Primary Care Provider: Jessica Aguero Referring Provider: Sean Elizabeth Code Visit Inpatient E&M: 24607 Subs Hosp L3
--- NOTE | 2017-12-12 15:47 | PN_ITS ---
- Problem List (1) Positive fecal occult blood test Status: Acute (2) Chemotherapy induced nausea and vomiting Status: Acute (3) Primary cancer of right female breast Status: Chronic Subjective Date of Service:: 12/12/17 N&V ALL MORNING AND DIARRHEA- STATUS POST CHEMO 71-year-old woman was diagnosed with right breast cancer on September 12, 2017. Core biopsy showed invasive ductal carcinoma, ER DC positive, HER-2 negative. She underwent right modified radical mastectomy with sentinel node biopsy on October 01, 2017. Pathology showed invasive ductal carcinoma, tumor size 1.86 cm , grade 2, sentinel nodes 2 out of 2 negative. Oncotype DX score 31. She stared Arimidex in October 2017. She received her first cycle of adjuvant chemotherapy with Taxotere and Cytoxan on December 03, 2017. She developed nausea & vomiting, came to the hospital and developed diarrhea. Nausea/vomiting and diarrhea has resolved. She has developed arrhythmia and undergoing cardiac evaluation. Past Medical History: Chronic Problems (Last Reviewed 12/03/17 @ 08:50 by Ana Mckinney) Asthma (Chronic) GERD (Chronic) Hypertension (Chronic) Obesity (Chronic) Jody filter in place (Chronic) Encounter for screening for malignant neoplasm of colon (Chronic) Primary cancer of right female breast (Chronic) Educational circumstance (Chronic) Chemotherapy management, encounter for (Chronic) Past Medical History (Last Reviewed 12/03/17 @ 08:50 by Ana Mckinney) Anemia (Acute) Asthma (Acute) Breast cancer (Acute) CAD (coronary artery disease) (Acute) COPD (chronic obstructive pulmonary disease) (Acute) Constipation (Acute) GERD (gastroesophageal reflux disease) (Acute) Hemorrhoid (Acute) History of incisional hernia repair (Acute) Hypercholesterolemia (Acute) Insomnia (Acute) Obesity (Acute) PVD (peripheral vascular disease) (Acute) Rectal prolapse (Acute) port placement (Acute) HTN (hypertension) (Chronic) Past Surgical History (Last Reviewed 12/03/17 @ 08:50 by Ana Mckinney) Hx of mastectomy (Acute) S/P appendectomy (Acute) S/P carpal tunnel release (Acute) S/P cataract extraction (Acute) S/P hysterectomy (Acute) S/P lumbar discectomy (Acute) S/P partial thyroidectomy (Acute) S/P revision of total knee (Acute) S/P right breast biopsy (Acute) S/P total knee replacement (Acute) Maternal Family History: Family History (Last Reviewed 12/03/17 @ 08:50 by Ana Mckinney) Brother Diabetes Heart disease Sister Breast cancer Mother Cancer Aunt Breast cancer Grandmother Cancer Family History: No pertinent history - Social History Smoking Status: Never smoker Review of Systems Constitutional:: Reports: Fatigue. Denies: Fever, Sweats Cardiovascular:: Reports: Irregular heartbeat Respiratory: Denies: Cough, Hemoptysis, Shortness of Breath, Wheezing Gastrointestinal:: Denies: Abdominal pain, Nausea, Vomiting, Diarrhea, Constipation, Hematochezia Neurological:: Denies: Headache, Dizziness, Visual changes, Tinnitus, Hearing loss Vital Signs Height 5 ft 5 in Weight: 78.4 kg Weight in Pounds 172.8 lbs Pulse Ox 95 Temperature 98.0 F Pulse Rate 80 Respiratory Rate 24 Blood Pressure [BP] 132/63 Blood Pressure 127/66 Blood Pressure Position [BP] Semi-Fowlers Blood Pressure Position Semi-Fowlers - Physical Exam General: Alert, Oriented x3, No apparent distress Laboratory Data: Laboratory Tests 3 12/12/17 12/12/17 Range/Units 05:40 05:40 WBC 33.7 H* (4.4-11.0) K/mm3 RBC 3.29 L (4.2-5.4) M/mm3 Hgb 9.7 L (12.0-15.0) g/dl Hct 30.0 L (37-47) % MCV 91.2 (81-99) fL MCH 29.5 (27.0-32.0) pg MCHC 32.3 (32-36) g/gl RDW 13.6 (11.6-14.6) % RDW Differential 43.3 (35.1-43.9) fl Plt Count 253 (150-450) K/mm3 MPV 9.0 (6.2-12.0) fl Differential Comment SCAN Diff Path Review Reviewed Sodium 140 (136-145) mmol/L Potassium 4.1 (3.5-5.1) mmol/L Chloride 104 (98-107) mmol/L Carbon Dioxide 28.0 (21.0-32.0) mmol/L Anion Gap 8 (5-15) BUN 25 H (7-18) mg/dL Creatinine 0.66 (0.55-1.02) mg/dL Estim Creat Clear Calc 45.09 ml/min Est GFR (MDRD) Af Amer 112 (>60) mL/min Est GFR (MDRD) Non-Af 93 (>60) mL/min BUN/Creatinine Ratio 37.7 H (10-20) RATIO Glucose 139 H (74-106) mg/dL Calcium 8.2 L (8.5-10.1) mg/dL Diagnostic Data: Diagnostic Data Abdomen X-Ray 12/06/17 16:40 IMPRESSION: Mild ileus suggested. Nonobstructive bowel gas pattern. Mild left basilar atelectasis or developing infiltrate. at 1716 Reported and signed by: Raven Jacobo MD Electronically Signed: Raven Jacobo MD at 17:15 EDT Tel , Service support , Chest CTA 12/09/17 20:50 IMPRESSION: Large hiatal hernia similar to prior studies, compressing the left atrium. Coronary calcification. No evidence of pulmonary embolism. Evidence of old granulomatous disease. No evidence of focal infiltrate. Electronically Signed: Ivis Engle MD at 21:48 EDT Tel , Service support , Assessment and Plan Chemotherapy related nausea/vomiting and Diarrhea-resolved. Improving after admission. Occult blood positive stools-had colonoscopy in September. Cardiac arrhythmia. Suggestions: To continue cardiac work up. If stable and discharged, should follow up in the [facility]. Thanks. Medications: Medications Added to Medication List This Visit Category Date Time Status Amiodarone HCl/Dextrose [Nexterone 360 mg/200 ml Bag] Med 12/12/17 16:25 Active 360 mg in 200 ml CONT INF 0.5 mg/min Amiodarone HCl/Dextrose [Nexterone 360 mg/200 ml Bag] Med 12/12/17 10:25 Active 360 mg in 200 ml CONT INF 1 mg/min Primary Care Provider: Jessica Aguero Referring Provider: Sean Elizabeth Code Visit Inpatient E&M: 02688 Subs Hosp L3
--- NOTE | 2017-12-12 18:28 | PCM.PROGNOTE ---
Patient Problems: Active and Suspected Problems (Last Reviewed 12/03/17 @ 08:50 by Ana Mckinney) Chemotherapy induced nausea and vomiting (Acute) Chemo-induced gastroenteritis (Acute) Positive fecal occult blood test (Acute) Subjective: She is c/o malaise with generalized weakness. Decreased appetite. No chest pain, dyspnea, or palpitations. Objective: - Physical Exam General: Alert, Oriented x3, Cooperative HEENT: Atraumatic, PERRLA Oral: Moist Mucosa, No Gingival or Mucosal Lesions/ Ulcerations Neck: Supple, No JVD, Negative Carotid Bruits Lungs: Clear to auscultation, Normal air movement, No rhonchi, No wheeze, No rales Cardiovascular: Regular rate, Regular Rhythm, Normal S1, Normal S2, No murmurs, No Ectopic Activity Abdomen: Bowel Sounds Present, Soft, Non Tender, Non-Distended, No Hepato-splenomegaly Extremities: No clubbing, No cyanosis, No edema Skin: No rashes, No breakdown Musculoskeletal: No Tenderness to Palpation of Joints or Extremities, No Muscle Wasting Lymphatic: No Cervical, Supraclavicular, or Inguinal Adenopathy Neurological: Cranial nerves II-XII grossly intact, Neuro grossly intact Psych/Mental Status: Normal Affect - Physical Exam Vital Signs Temp Pulse Resp BP Pulse Ox 97.8 F 77 21 H 130/63 H 95 12/12/17 16:00 12/12/17 17:00 12/12/17 17:00 12/12/17 17:00 12/12/17 17:00 Oxygen Flow Rate (L/min) 1 Oxygen Delivery Method Room Air Weight: 172 lb 13.478 oz Body Mass Index (BMI) 29.2 Intake and Output for Last 24 Hours 12/10/17 12/11/17 12/12/17 23:59 23:59 23:59 Intake Total 1907 / 1907 1909 / 1909 756 / 756 Output Total 1300 / 1300 Balance 607 / 607 1909 756 / 756 Laboratory Tests Past 24 Hrs 12/12/17 12/12/17 05:40 05:40 WBC 33.7 H* RBC 3.29 L Hgb 9.7 L Hct 30.0 L MCV 91.2 MCH 29.5 MCHC 32.3 RDW 13.6 RDW Differential 43.3 Plt Count 253 MPV 9.0 Differential Comment SCAN Diff Path Review Reviewed Sodium 140 Potassium 4.1 Chloride 104 Carbon Dioxide 28.0 Anion Gap 8 BUN 25 H Creatinine 0.66 Estim Creat Clear Calc 45.09 Est GFR (MDRD) Af Amer 112 Est GFR (MDRD) Non-Af 93 BUN/Creatinine Ratio 37.7 H Glucose 139 H Calcium 8.2 L Diagnostic Data Abdomen X-Ray 12/06/17 16:40 IMPRESSION: Mild ileus suggested. Nonobstructive bowel gas pattern. Mild left basilar atelectasis or developing infiltrate. at 1716 Reported and signed by: Raven Jacobo MD Electronically Signed: Raven Jacobo MD at 17:15 EDT Tel , Service support , Chest CTA 12/09/17 20:50 IMPRESSION: Large hiatal hernia similar to prior studies, compressing the left atrium. Coronary calcification. No evidence of pulmonary embolism. Evidence of old granulomatous disease. No evidence of focal infiltrate. Electronically Signed: Ivis Engle MD at 21:48 EDT Tel , Service support , Medical Necessity - Tobacco Use Smoking Status: Never smoker Assessment/Plan Active and Suspected Problems (Last Reviewed 12/03/17 @ 08:50 by Ana Mckinney) Chemotherapy induced nausea and vomiting (Acute) Chemo-induced gastroenteritis (Acute) Positive fecal occult blood test (Acute) Patient is a 71-year-old lady with history of breast cancer diagnosed in August 2017 for which she underwent radical mastectomy. Currently on chemotherapy with Taxotere and Cytoxan presented with nausea and vomiting. Admitted to regular nursing floor where patient is being managed. 1. Chemo induced gastroenterocolitis: patient has been managed symptomatically with IV fluids antinausea medication and correction of electrolyte. Continue PT/OT. She states that she would not want to have another chemotherapy, but another cycle is about one month from now. Encourage her to continue conversation with oncologist regarding her chemotherapy. 2. Hypokalemia secondary to above corrected per protocol 3. Hemoccult positive stools patient has history of hemorrhoids underwent colonoscopy in [place] [address] Shell no malignancy was found 4. Right breast CA status post radical mastectomy currently on chemo 5. Hypertension-blood pressure controlled, home medications continued with dose adjustment as needed 6. GERD on PPI 7. Mild intermittent asthma 8. History of IVC filter 9. Proximal A. fib She is having recurrent episodes of RVR. Appreciate Cardiology consultation. Amiodarone was added. Continue Diltiazem PO. Cardiology is planning for ischemic work up with pharmacological stress NM test. 10. DVT prophylaxis Lovenox Disposition: Home in 1 to 2 days. Code Visit Inpatient E&M: 51117 Subs Hosp L2
--- NOTE | 2017-12-12 18:33 | PN_ITS ---
Patient Problems: Active and Suspected Problems (Last Reviewed 12/03/17 @ 08:50 by Ana Mckinney) Chemotherapy induced nausea and vomiting (Acute) Chemo-induced gastroenteritis (Acute) Positive fecal occult blood test (Acute) Subjective: She is c/o malaise with generalized weakness. Decreased appetite. No chest pain, dyspnea, or palpitations. Objective: - Physical Exam General: Alert, Oriented x3, Cooperative HEENT: Atraumatic, PERRLA Oral: Moist Mucosa, No Gingival or Mucosal Lesions/ Ulcerations Neck: Supple, No JVD, Negative Carotid Bruits Lungs: Clear to auscultation, Normal air movement, No rhonchi, No wheeze, No rales Cardiovascular: Regular rate, Regular Rhythm, Normal S1, Normal S2, No murmurs, No Ectopic Activity Abdomen: Bowel Sounds Present, Soft, Non Tender, Non-Distended, No Hepato- splenomegaly Extremities: No clubbing, No cyanosis, No edema Skin: No rashes, No breakdown Musculoskeletal: No Tenderness to Palpation of Joints or Extremities, No Muscle Wasting Lymphatic: No Cervical, Supraclavicular, or Inguinal Adenopathy Neurological: Cranial nerves II-XII grossly intact, Neuro grossly intact Psych/Mental Status: Normal Affect - Physical Exam Vital Signs Temp Pulse Resp BP Pulse Ox 97.8 F 77 21 H 130/63 H 95 12/12/17 16:00 12/12/17 17:00 12/12/17 17:00 12/12/17 17:00 12/12/17 17:00 Oxygen Flow Rate (L/min) 1 Oxygen Delivery Method Room Air Weight: 172 lb 13.478 oz Body Mass Index (BMI) 29.2 Intake and Output for Last 24 Hours 12/10/17 12/11/17 12/12/17 23:59 23:59 23:59 Intake Total 1907 / 1907 1909 / 1909 756 / 756 Output Total 1300 / 1300 Balance 607 / 607 1909 756 / 756 Laboratory Tests Past 24 Hrs 12/12/17 12/12/17 05:40 05:40 WBC 33.7 H* RBC 3.29 L Hgb 9.7 L Hct 30.0 L MCV 91.2 MCH 29.5 MCHC 32.3 RDW 13.6 RDW Differential 43.3 Plt Count 253 MPV 9.0 Differential Comment SCAN Diff Path Review Reviewed Sodium 140 Potassium 4.1 Chloride 104 Carbon Dioxide 28.0 Anion Gap 8 BUN 25 H Creatinine 0.66 Estim Creat Clear Calc 45.09 Est GFR (MDRD) Af Amer 112 Est GFR (MDRD) Non-Af 93 BUN/Creatinine Ratio 37.7 H Glucose 139 H Calcium 8.2 L Diagnostic Data Abdomen X-Ray 12/06/17 16:40 IMPRESSION: Mild ileus suggested. Nonobstructive bowel gas pattern. Mild left basilar atelectasis or developing infiltrate. at 1716 Reported and signed by: aRven Jacobo MD Electronically Signed: Raven Jacobo MD at 17:15 EDT Tel , Service support , Chest CTA 12/09/17 20:50 IMPRESSION: Large hiatal hernia similar to prior studies, compressing the left atrium. Coronary calcification. No evidence of pulmonary embolism. Evidence of old granulomatous disease. No evidence of focal infiltrate. Electronically Signed: Ivis Engle MD at 21:48 EDT Tel , Service support , Medical Necessity - Tobacco Use Smoking Status: Never smoker Assessment/Plan Active and Suspected Problems (Last Reviewed 12/03/17 @ 08:50 by Ana Mckinney) Chemotherapy induced nausea and vomiting (Acute) Chemo-induced gastroenteritis (Acute) Positive fecal occult blood test (Acute) Patient is a 71-year-old lady with history of breast cancer diagnosed in August 2017 for which she underwent radical mastectomy. Currently on chemotherapy with Taxotere and Cytoxan presented with nausea and vomiting. Admitted to regular nursing floor where patient is being managed. 1. Chemo induced gastroenterocolitis: patient has been managed symptomatically with IV fluids antinausea medication and correction of electrolyte. Continue PT/OT. She states that she would not want to have another chemotherapy , but another cycle is about one month from now. Encourage her to continue conversation with oncologist regarding her chemotherapy. 2. Hypokalemia secondary to above corrected per protocol 3. Hemoccult positive stools patient has history of hemorrhoids underwent colonoscopy in [place] [address] Shell no malignancy was found 4. Right breast CA status post radical mastectomy currently on chemo 5. Hypertension-blood pressure controlled, home medications continued with dose adjustment as needed 6. GERD on PPI 7. Mild intermittent asthma 8. History of IVC filter 9. Proximal A. fib She is having recurrent episodes of RVR. Appreciate Cardiology consultation. Amiodarone was added. Continue Diltiazem PO. Cardiology is planning for ischemic work up with pharmacological stress NM test. 10. DVT prophylaxis Lovenox Disposition: Home in 1 to 2 days. Code Visit Inpatient E&M: 73325 Subs Hosp L2
[2017-12-12] MEDS: Zolpidem Tartrate 5 MG Tablet PO (22:13)
[2017-12-12] MEDS: Pravastatin 20 MG Tablet PO (22:13)
[2017-12-13] VITALS (22 sets, daily range): BP systolic 109–136; BP diastolic 49–81; PULSE 66–87; RESP 14–26; TEMP 36.4–37.1; O2SAT 94–97
[2017-12-13] MEDS: 0.9% NaCl Peripheral Flush Adult/Peds IV (04:27)
[2017-12-13 04:44] LABS: International Normalized Ratio 1.2
[2017-12-13] MEDS: HYDROcodone Bitartrate/Apap 5/325 Tablet PO ×2 (04:44→21:07)
[2017-12-13 04:49] LABS: Partial Thromboplast Time 28.3 Seconds (24.1-36.2)
[2017-12-13 05:00] LABS: Hematocrit 30.8 % (37-47); Hemoglobin 9.8 g/dl (12.0-15.0); Mean Corp Hgb Conc 31.8 g/gl (32-36); Mean Corpuscular Hgb 29.4 pg (27.0-32.0); Mean Corpuscular Volume 92.5 fL (81-99); Mean Platelet Vol. 8.9 fl (6.2-12.0); Platelet Count 239 K/mm3 (150-450); RBC Distribution Width CV 14.1 % (11.6-14.6); RBC Distribution Width SD 45.1 fl (35.1-43.9); Red Blood Count 3.33 M/mm3 (4.2-5.4); Scan Indicated on CBC? Y/N NO; White Blood Count 29.8 K/mm3 (4.4-11.0)
[2017-12-13 05:04] LABS: Anion Gap 8 (5-15); BUN 25 mg/dL (7-18); BUN/Creat Ratio 33.9 RATIO (10-20); Calcium,Total 7.8 mg/dL (8.5-10.1); Chloride 105 mmol/L (98-107); Creatinine, Serum 0.74 mg/dL (0.55-1.02); EST Glomerular Filtration Rate 82 mL/min (>60); Est Glom Filt Rate - Afr Amer 99 mL/min (>60); Estimated Creatinine Clearance 45.09 ml/min; Glucose 100 mg/dL (74-106); Potassium 4.1 mmol/L (3.5-5.1); Sodium Level 144 mmol/L (136-145)
--- NOTE | 2017-12-13 05:55 | EKG12_ITS ---
Test Reason : AM EKG Blood Pressure : / mmHG Vent. Rate : 070 BPM Atrial Rate : 070 BPM P-R Int : 214 ms QRS Dur : 094 ms QT Int : 456 ms P-R-T Axes : 081 -05 021 degrees QTc Int : 492 ms Sinus rhythm with 1st degree A-V block Inferior infarct , age undetermined , cannot be excluded Abnormal ECG Confirmed by AYANA GONZALEZ, JORGE ([id number]), editor farm journal PATSY MILLER ([id number]) on 12/18/2017 2:53:19 PM Referred By: Sean Elizabeth Confirmed By:JORGE PIÑA MD
[2017-12-13] MEDS: dilTIAZem CD 180 MG Capsule PO ×2 (09:51→21:07)
[2017-12-13] MEDS: APIXABAN 5 MG TABLET PO ×2 (09:51→21:07)
--- NOTE | 2017-12-13 12:20 | STRESSREP ---
Stress Test Report Date: 12/13/2017 Procedure: Pharmacologic stress nuclear imaging study Indications: Chest pain; paroxysmal atrial fibrillation Consent: Per the patient Procedure: The patient underwent pharmacologic (Regadenoson) evaluation with a peak heart rate of 104 beats per minute (70 predicted maximal heart rate) and a peak blood pressure of 135/60 mmHg. The baseline ECG demonstrated normal sinus rhythm. The peak pharmacologic ECG demonstrated no obvious ECG changes. There were no cardiac dysrhythmias pretest, during pharmacologic infusion, or recovery. There was no complaint of chest discomfort during pharmacologic infusion or recovery. The examination was discontinued secondary to completion of protocol. Impression: 1. Pharmacologic (Regadenoson) evaluation 2. Peak pharmacologic ECG with no obvious ECG changes. 3. No cardiac dysrhythmias pretest, during pharmacologic infusion, or recovery. 4. Nuclear images pending Myocardial perfusion imaging study: Technique: The patient was injected with 11.9 millicuries of technetium 99m Cardiolite and subsequently rest SPECT Cardiolite nuclear imaging was obtained in the horizontal long, vertical long, and short axis views. The patient underwent pharmacologic (Regadenoson) evaluation with a peak heart rate of 104 beats per minute (70 % percent predicted maximal heart rate) and a peak blood pressure of 135/60 mmHg. The patient was injected with 34.1 millicuries of technetium 99m Cardiolite and subsequently stress SPECT Cardiolite nuclear imaging was obtained in the horizontal long, vertical long, and short axis views. A gated Cardiolite study at peak stress was obtained. Interpretation: Rest and stress SPECT Cardiolite nuclear imaging status post realignment, normalization, and attenuation correction demonstrate relative uniform tracer uptake and myocardial perfusion appearing within normal limits. There is end systolic thickening and brightening. The gated Cardiolite study demonstrates myocardial thickening and inward wall motion. The reported LVEF is 83 %. Impression: 1. Rest and stress SPECT Cardiolite nuclear imaging demonstrate relative uniform tracer uptake and myocardial perfusion appearing within normal limits. 2. The gated Cardiolite study reports an LVEF of 83 %. This note was generated with [employer] software. It may contain incorrect words, spelling, and punctuation that were not noted in checking the note before signing.
--- NOTE | 2017-12-13 15:54 | CASEMGMT ---
Resumption of care order already in and green sheet on chart. SStaminah ANDRES CM
--- NOTE | 2017-12-13 18:24 | PCM.PROGNOTE ---
Patient Problems: Active and Suspected Problems (Last Reviewed 12/03/17 @ 08:50 by Ana Mckinney) Chemotherapy induced nausea and vomiting (Acute) Chemo-induced gastroenteritis (Acute) Positive fecal occult blood test (Acute) Subjective: She feels well today. She did better with PT, but still needs some assist for transfer. No chest pain, dizziness, fever, or chills. No focal weakness. Objective: - Physical Exam General: Alert, Oriented x3, Cooperative HEENT: Atraumatic, PERRLA Oral: Moist Mucosa, No Gingival or Mucosal Lesions/ Ulcerations Neck: Supple, No JVD, Negative Carotid Bruits Lungs: Clear to auscultation, Normal air movement, No rhonchi, No wheeze, No rales Cardiovascular: Regular rate, Regular Rhythm, Normal S1, Normal S2, No murmurs, No Ectopic Activity Abdomen: Bowel Sounds Present, Soft, Non Tender, Non-Distended, No Hepato-splenomegaly Extremities: No clubbing, No cyanosis, No edema Skin: No rashes, No breakdown Musculoskeletal: No Tenderness to Palpation of Joints or Extremities, No Muscle Wasting Lymphatic: No Cervical, Supraclavicular, or Inguinal Adenopathy Neurological: Cranial nerves II-XII grossly intact, Neuro grossly intact Psych/Mental Status: Normal Affect - Physical Exam Vital Signs Temp Pulse Resp BP Pulse Ox 97.8 F 78 26 H 129/60 H 94 12/13/17 17:00 12/13/17 17:00 12/13/17 17:00 12/13/17 17:00 12/13/17 17:00 Oxygen Flow Rate (L/min) 2 Oxygen Delivery Method Room Air Weight: 172 lb 2.896 oz Body Mass Index (BMI) 29.2 Intake and Output for Last 24 Hours 12/11/17 12/12/17 12/13/17 23:59 23:59 23:59 Intake Total 1909 1109.9 / 1109.9 562 / 562 Output Total 600 / 600 400 / 400 Balance 1909 509.9 / 509.9 162 / 162 Laboratory Tests Past 24 Hrs 12/13/17 12/13/17 12/13/17 04:30 04:30 04:30 WBC 29.8 H RBC 3.33 L Hgb 9.8 L Hct 30.8 L MCV 92.5 MCH 29.4 MCHC 31.8 L RDW 14.1 RDW Differential 45.1 H Plt Count 239 MPV 8.9 PT 15.0 H INR 1.2 APTT 28.3 Sodium 144 Potassium 4.1 Chloride 105 Carbon Dioxide 31.0 Anion Gap 8 BUN 25 H Creatinine 0.74 Estim Creat Clear Calc 45.09 Est GFR (MDRD) Af Amer 99 Est GFR (MDRD) Non-Af 82 BUN/Creatinine Ratio 33.9 H Glucose 100 Calcium 7.8 L Diagnostic Data Abdomen X-Ray 12/06/17 16:40 IMPRESSION: Mild ileus suggested. Nonobstructive bowel gas pattern. Mild left basilar atelectasis or developing infiltrate. at 1716 Reported and signed by: Raven Jacobo MD Electronically Signed: Raven Jacobo MD at 17:15 EDT Tel , Service support , Chest CTA 12/09/17 20:50 IMPRESSION: Large hiatal hernia similar to prior studies, compressing the left atrium. Coronary calcification. No evidence of pulmonary embolism. Evidence of old granulomatous disease. No evidence of focal infiltrate. Electronically Signed: Ivis Engle MD at 21:48 EDT Tel , Service support , Medical Necessity - Tobacco Use Smoking Status: Never smoker Assessment/Plan Active and Suspected Problems (Last Reviewed 12/03/17 @ 08:50 by Ana Mckinney) Chemotherapy induced nausea and vomiting (Acute) Chemo-induced gastroenteritis (Acute) Positive fecal occult blood test (Acute) Patient is a 71-year-old lady with history of breast cancer diagnosed in August 2017 for which she underwent radical mastectomy. Currently on chemotherapy with Taxotere and Cytoxan presented with nausea and vomiting. Admitted to regular nursing floor where patient is being managed. 1. Chemo induced gastroenterocolitis: patient has been managed symptomatically with IV fluids antinausea medication and correction of electrolyte. Continue PT/OT. She states that she would not want to have another chemotherapy, but another cycle is about one month from now. Encourage her to continue conversation with oncologist regarding her chemotherapy. 2. Hypokalemia secondary to above corrected per protocol 3. Hemoccult positive stools patient has history of hemorrhoids underwent colonoscopy in [place] [address] Shell no malignancy was found 4. Right breast CA status post radical mastectomy currently on chemo 5. Hypertension-blood pressure controlled, home medications continued with dose adjustment as needed 6. GERD on PPI 7. Mild intermittent asthma 8. History of IVC filter 9. Proximal A. fib She is having recurrent episodes of RVR. Appreciate Cardiology consultation. Amiodarone IV was added, exchange teller to po. Continue Diltiazem PO. Stress test was done, negative (12/13) DVT prophylaxis Eliquis. GI prophylaxis: PPI po. Disposition: Home in 1 to 2 days. Code Visit Inpatient E&M: 65464 Subs Hosp L2
--- NOTE | 2017-12-13 18:30 | PN_ITS ---
Patient Problems: Active and Suspected Problems (Last Reviewed 12/03/17 @ 08:50 by Ana Mckinney) Chemotherapy induced nausea and vomiting (Acute) Chemo-induced gastroenteritis (Acute) Positive fecal occult blood test (Acute) Subjective: She feels well today. She did better with PT, but still needs some assist for transfer. No chest pain, dizziness, fever, or chills. No focal weakness. Objective: - Physical Exam General: Alert, Oriented x3, Cooperative HEENT: Atraumatic, PERRLA Oral: Moist Mucosa, No Gingival or Mucosal Lesions/ Ulcerations Neck: Supple, No JVD, Negative Carotid Bruits Lungs: Clear to auscultation, Normal air movement, No rhonchi, No wheeze, No rales Cardiovascular: Regular rate, Regular Rhythm, Normal S1, Normal S2, No murmurs, No Ectopic Activity Abdomen: Bowel Sounds Present, Soft, Non Tender, Non-Distended, No Hepato- splenomegaly Extremities: No clubbing, No cyanosis, No edema Skin: No rashes, No breakdown Musculoskeletal: No Tenderness to Palpation of Joints or Extremities, No Muscle Wasting Lymphatic: No Cervical, Supraclavicular, or Inguinal Adenopathy Neurological: Cranial nerves II-XII grossly intact, Neuro grossly intact Psych/Mental Status: Normal Affect - Physical Exam Vital Signs Temp Pulse Resp BP Pulse Ox 97.8 F 78 26 H 129/60 H 94 12/13/17 17:00 12/13/17 17:00 12/13/17 17:00 12/13/17 17:00 12/13/17 17:00 Oxygen Flow Rate (L/min) 2 Oxygen Delivery Method Room Air Weight: 172 lb 2.896 oz Body Mass Index (BMI) 29.2 Intake and Output for Last 24 Hours 12/11/17 12/12/17 12/13/17 23:59 23:59 23:59 Intake Total 1909 1109.9 / 1109.9 562 / 562 Output Total 600 / 600 400 / 400 Balance 1909 509.9 / 509.9 162 / 162 Laboratory Tests Past 24 Hrs 12/13/17 12/13/17 12/13/17 04:30 04:30 04:30 WBC 29.8 H RBC 3.33 L Hgb 9.8 L Hct 30.8 L MCV 92.5 MCH 29.4 MCHC 31.8 L RDW 14.1 RDW Differential 45.1 H Plt Count 239 MPV 8.9 PT 15.0 H INR 1.2 APTT 28.3 Sodium 144 Potassium 4.1 Chloride 105 Carbon Dioxide 31.0 Anion Gap 8 BUN 25 H Creatinine 0.74 Estim Creat Clear Calc 45.09 Est GFR (MDRD) Af Amer 99 Est GFR (MDRD) Non-Af 82 BUN/Creatinine Ratio 33.9 H Glucose 100 Calcium 7.8 L Diagnostic Data Abdomen X-Ray 12/06/17 16:40 IMPRESSION: Mild ileus suggested. Nonobstructive bowel gas pattern. Mild left basilar atelectasis or developing infiltrate. at 1716 Reported and signed by: Raven Jacobo MD Electronically Signed: Raven Jacobo MD at 17:15 EDT Tel , Service support , Chest CTA 12/09/17 20:50 IMPRESSION: Large hiatal hernia similar to prior studies, compressing the left atrium. Coronary calcification. No evidence of pulmonary embolism. Evidence of old granulomatous disease. No evidence of focal infiltrate. Electronically Signed: Ivis Engle MD at 21:48 EDT Tel , Service support , Medical Necessity - Tobacco Use Smoking Status: Never smoker Assessment/Plan Active and Suspected Problems (Last Reviewed 12/03/17 @ 08:50 by Ana Mckinney) Chemotherapy induced nausea and vomiting (Acute) Chemo-induced gastroenteritis (Acute) Positive fecal occult blood test (Acute) Patient is a 71-year-old lady with history of breast cancer diagnosed in August 2017 for which she underwent radical mastectomy. Currently on chemotherapy with Taxotere and Cytoxan presented with nausea and vomiting. Admitted to regular nursing floor where patient is being managed. 1. Chemo induced gastroenterocolitis: patient has been managed symptomatically with IV fluids antinausea medication and correction of electrolyte. Continue PT/OT. She states that she would not want to have another chemotherapy , but another cycle is about one month from now. Encourage her to continue conversation with oncologist regarding her chemotherapy. 2. Hypokalemia secondary to above corrected per protocol 3. Hemoccult positive stools patient has history of hemorrhoids underwent colonoscopy in [place] [address] Shell no malignancy was found 4. Right breast CA status post radical mastectomy currently on chemo 5. Hypertension-blood pressure controlled, home medications continued with dose adjustment as needed 6. GERD on PPI 7. Mild intermittent asthma 8. History of IVC filter 9. Proximal A. fib She is having recurrent episodes of RVR. Appreciate Cardiology consultation. Amiodarone IV was added, slip box changer to po. Continue Diltiazem PO. Stress test was done, negative (12/13) DVT prophylaxis Eliquis. GI prophylaxis: PPI po. Disposition: Home in 1 to 2 days. Code Visit Inpatient E&M: 15229 Subs Hosp L2
--- NOTE | 2017-12-13 18:34 | PCM.PN.CARD ---
Subjectve: The patient was evaluated earlier this day. She appeared to be resting comfortably. She has undergone further evaluation with a pharmacologic stress nuclear imaging study. It appeared to be negative for evidence of stress-induced myocardial ischemia. Objective: Vital Signs Temp Pulse Resp BP Pulse Ox 97.8 F 78 26 H 129/60 H 94 12/13/17 17:00 12/13/17 17:00 12/13/17 17:00 12/13/17 17:00 12/13/17 17:00 Oxygen Flow Rate (L/min) 2 Oxygen Delivery Method Room Air Weight: 172 lb 2.896 oz Body Mass Index (BMI) 29.2 Intake and Output for Last 24 Hours 12/11/17 12/12/17 12/13/17 23:59 23:59 23:59 Intake Total 1909 1109.9 / 1109.9 562 / 562 Output Total 600 / 600 400 / 400 Balance 1909 509.9 / 509.9 162 / 162 General: Awake, Alert, Oriented x 3, Cooperative, No Acute Distress Neck: No JVD Lungs: Clear to auscultation Cardiovascular: Regular Rhythm, Normal S1, Normal S2 Abdomen: Bowel Sounds Present, Soft, Non Tender Extremities: No edema 12/13/17 04:30: WBC 29.8 H, RBC 3.33 L, Hgb 9.8 L, Hct 30.8 L, MCV 92.5, MCH 29.4, MCHC 31.8 L, RDW 14.1, RDW Differential 45.1 H, Plt Count 239, MPV 8.9 12/13/17 04:30: Sodium 144, Potassium 4.1, Chloride 105, Carbon Dioxide 31.0, Anion Gap 8, BUN 25 H, Creatinine 0.74, Est GFR (MDRD) Af Amer 99, Est GFR (MDRD) Non-Af 82, BUN/Creatinine Ratio 33.9 H, Glucose 100, Calcium 7.8 L 12/13/17 04:30: PT 15.0 H, INR 1.2, APTT 28.3 Rhythm: Sinus rhythm Stress Test: Pharmacologic stress nuclear imaging study: Considered negative for stress-induced myocardial ischemia: please see official report Medical Necessity - Tobacco Use Smoking Status: Never smoker Assessment/Plan 1. Paroxysmal atrial fibrillation The etiology may be multifactorial. This could include a combination of factors including age, previously known cardiac dysrhythmias, underlying noncardiovascular conditions including breast carcinoma with ongoing chemotherapy with subsequent episodes of her gastrointestinal related issues with nausea, emesis, and diarrhea, etc. There is been no findings suggestive of an acute coronary syndrome or acute CHF/pulmonary edema. There is been no findings for an acute pericardial related issues. There have been no findings for any great vessel disease or thromboembolic disease. At the present time the patient will continue medical management. This will include rate limiting therapy. It has also included IV antiarrhythmic therapy with amiodarone which appeared to assist with the patient's underlying rate and rhythm. She is being transitioned to oral amiodarone therapy. The patient should also be considered for anticoagulant therapy, based upon a [id number] or of approximately 3, unless otherwise contraindicated. She has also undergone a pharmacologic stress nuclear imaging study which appears to be unremarkable for stress-induced myocardial ischemia. 2. PACs Again an attempt will be made to assist with this by increasing her diltiazem therapy. 3. Hypertension The patient has a history of hypertension. She will continue medical management be as deemed appropriate. This may require an agent other than diazepam to assist with her blood pressure control. 4. Hyperlipidemia The patient should continue lipid-lowering therapy. 5. Breast carcinoma She is undergoing evaluation care for breast carcinoma. This is included chemotherapy. Her symptoms started following her chemotherapy and following her gastrointestinal related issues. She will need to continue evaluation care for her breast carcinoma and appropriate chemotherapy agents and adjustments per her oncologist. Comment: The patient's case has been discussed and reviewed with the patient. This note was generated with [employer] dictation software. It may contain incorrect words, spelling, and punctuation that were not noted in checking the note before signing.
--- NOTE | 2017-12-13 18:37 | PN.CARD_ITS ---
Subjectve: The patient was evaluated earlier this day. She appeared to be resting comfortably. She has undergone further evaluation with a pharmacologic stress nuclear imaging study. It appeared to be negative for evidence of stress-induced myocardial ischemia. Objective: Vital Signs Temp Pulse Resp BP Pulse Ox 97.8 F 78 26 H 129/60 H 94 12/13/17 17:00 12/13/17 17:00 12/13/17 17:00 12/13/17 17:00 12/13/17 17:00 Oxygen Flow Rate (L/min) 2 Oxygen Delivery Method Room Air Weight: 172 lb 2.896 oz Body Mass Index (BMI) 29.2 Intake and Output for Last 24 Hours 12/11/17 12/12/17 12/13/17 23:59 23:59 23:59 Intake Total 1909 1109.9 / 1109.9 562 / 562 Output Total 600 / 600 400 / 400 Balance 1909 509.9 / 509.9 162 / 162 General: Awake, Alert, Oriented x 3, Cooperative, No Acute Distress Neck: No JVD Lungs: Clear to auscultation Cardiovascular: Regular Rhythm, Normal S1, Normal S2 Abdomen: Bowel Sounds Present, Soft, Non Tender Extremities: No edema 12/13/17 04:30: WBC 29.8 H, RBC 3.33 L, Hgb 9.8 L, Hct 30.8 L, MCV 92.5, MCH 29.4, MCHC 31.8 L, RDW 14.1, RDW Differential 45.1 H, Plt Count 239, MPV 8.9 12/13/17 04:30: Sodium 144, Potassium 4.1, Chloride 105, Carbon Dioxide 31.0, Anion Gap 8, BUN 25 H, Creatinine 0.74, Est GFR (MDRD) Af Amer 99, Est GFR (MDRD ) Non-Af 82, BUN/Creatinine Ratio 33.9 H, Glucose 100, Calcium 7.8 L 12/13/17 04:30: PT 15.0 H, INR 1.2, APTT 28.3 Rhythm: Sinus rhythm Stress Test: Pharmacologic stress nuclear imaging study: Considered negative for stress-induced myocardial ischemia: please see official report Medical Necessity - Tobacco Use Smoking Status: Never smoker Assessment/Plan 1. Paroxysmal atrial fibrillation The etiology may be multifactorial. This could include a combination of factors including age, previously known cardiac dysrhythmias, underlying noncardiovascular conditions including breast carcinoma with ongoing chemotherapy with subsequent episodes of her gastrointestinal related issues with nausea, emesis, and diarrhea, etc. There is been no findings suggestive of an acute coronary syndrome or acute CHF/ pulmonary edema. There is been no findings for an acute pericardial related issues. There have been no findings for any great vessel disease or thromboembolic disease. At the present time the patient will continue medical management. This will include rate limiting therapy. It has also included IV antiarrhythmic therapy with amiodarone which appeared to assist with the patient's underlying rate and rhythm. She is being transitioned to oral amiodarone therapy. The patient should also be considered for anticoagulant therapy, based upon a [id number] or of approximately 3, unless otherwise contraindicated. She has also undergone a pharmacologic stress nuclear imaging study which appears to be unremarkable for stress-induced myocardial ischemia. 2. PACs Again an attempt will be made to assist with this by increasing her diltiazem therapy. 3. Hypertension The patient has a history of hypertension. She will continue medical management be as deemed appropriate. This may require an agent other than diazepam to assist with her blood pressure control. 4. Hyperlipidemia The patient should continue lipid-lowering therapy. 5. Breast carcinoma She is undergoing evaluation care for breast carcinoma. This is included chemotherapy. Her symptoms started following her chemotherapy and following her gastrointestinal related issues. She will need to continue evaluation care for her breast carcinoma and appropriate chemotherapy agents and adjustments per her oncologist. Comment: The patient's case has been discussed and reviewed with the patient. This note was generated with [employer] dictation software. It may contain incorrect words, spelling, and punctuation that were not noted in checking the note before signing.
[2017-12-13] MEDS: Pravastatin 20 MG Tablet PO (21:07)
[2017-12-13] MEDS: Amiodarone 200 MG Tablet PO (21:07)
[2017-12-13] MEDS: Zolpidem Tartrate 5 MG Tablet PO (22:09)
[2017-12-14 01:14] VITALS: BP 142/64; PULSE 80; RESP 18; TEMP 36.6; O2SAT 95
[2017-12-14 03:00] VITALS: PULSE 67
[2017-12-14] MEDS: 0.9% NaCl Peripheral Flush Adult/Peds IV ×3 (04:49→08:31)
[2017-12-14] MEDS: Amiodarone 200 MG Tablet PO (05:05)
[2017-12-14 05:08] VITALS: BP 121/74; PULSE 78; RESP 18; TEMP 36.5; O2SAT 96
[2017-12-14] MEDS: Ondansetron 4 MG/2 ML Vial 8 MG IV (05:11)
[2017-12-14 05:22] LABS: Hematocrit 31.6 % (37-47); Hemoglobin 9.9 g/dl (12.0-15.0); Mean Corp Hgb Conc 31.3 g/gl (32-36); Mean Corpuscular Hgb 29.3 pg (27.0-32.0); Mean Corpuscular Volume 93.5 fL (81-99); Mean Platelet Vol. 8.9 fl (6.2-12.0); Platelet Count 235 K/mm3 (150-450); RBC Distribution Width CV 14.7 % (11.6-14.6); RBC Distribution Width SD 47.5 fl (35.1-43.9); Red Blood Count 3.38 M/mm3 (4.2-5.4); White Blood Count 20.3 K/mm3 (4.4-11.0)
[2017-12-14 05:30] LABS: Scan Indicated on CBC? Y/N NO
[2017-12-14 05:38] LABS: Anion Gap 9 (5-15); BUN 21 mg/dL (7-18); BUN/Creat Ratio 31.4 RATIO (10-20); Calcium,Total 7.6 mg/dL (8.5-10.1); Chloride 106 mmol/L (98-107); Creatinine, Serum 0.67 mg/dL (0.55-1.02); EST Glomerular Filtration Rate 92 mL/min (>60); Est Glom Filt Rate - Afr Amer 111 mL/min (>60); Estimated Creatinine Clearance 45.09 ml/min; Glucose 113 mg/dL (74-106); Potassium 4.1 mmol/L (3.5-5.1); Sodium Level 143 mmol/L (136-145)
[2017-12-14 06:57] VITALS: PULSE 68
[2017-12-14] MEDS: Diphenoxylate/Atrop 1 Tablet PO (08:31)
[2017-12-14] MEDS: proMETHazine 25 MG/ML Syringe IV (08:32)
[2017-12-14 09:56] VITALS: BP 143/54; PULSE 83; RESP 18; TEMP 36.6; O2SAT 93
[2017-12-14] MEDS: APIXABAN 5 MG TABLET PO (09:58)
[2017-12-14] MEDS: HYDROcodone Bitartrate/Apap 5/325 Tablet PO (09:58)
[2017-12-14] MEDS: dilTIAZem CD 180 MG Capsule PO (09:58)
[2017-12-14] MEDS: Pantoprazole Sodium 40 MG Tablet PO (09:58)
--- NOTE | 2017-12-14 10:53 | PCM.DC ---
- Discharge Diagnoses Current Active Problems: Current Active and Chronic Problems (Last Reviewed 12/03/17 @ 08:50 by Ana Mkcinney) Chemotherapy induced nausea and vomiting (Acute) Chemo-induced gastroenteritis (Acute) Positive fecal occult blood test (Acute) You will use the following diet at home:: Cardiac Your food should be the consistency of: Regular Your liquids should be the consistency of: Regular/Thin Discharge Activity: Return to Normal Activity Allergies/Adverse Reactions: Allergies niacin Allergy (Intermediate, Verified 12/06/17 11:58) Swelling Medications to take at Discharge Albuterol Aerosols [Ventolin Aerosols] 2.5 mg INHALATION Q4H PRN PRN 06/16/13 Albuterol IH (ProAir) [Proair Hfa] 2 puff INHALATION Q4H PRN PRN 06/16/13 Lisinopril/Hydrochlorothiazide [Zestoretic 05/02.5 Tablet] 1 tab PO DAILY 06/16/13 Omeprazole [Prilosec] 20 mg PO DAILY 06/16/13 Pravastatin [Pravachol] 20 mg PO QHS 06/16/13 Zolpidem Tartrate [Ambien Cr] 12.5 mg PO QHS PRN PRN 12/15/13 Hydrocodone Bitart/Apap 5-325 [[place] 5/325] 1 - 2 tab PO Q4H PRN PRN #30 tab 12/30/15 Metformin HCl 1,000 mg PO DAILY 09/23/17 Polyethylene Glycol 3350 [Miralax] 17 gm PO DAILY #20 packet 10/03/17 Mometasone/Formoterol [Dulera 100 Mcg/5 Mcg Inhaler] 1 puff INHALATION DAILY 10/11/17 Anastrozole [Arimidex] 1 mg PO DAILY 90 Days #90 tab 10/31/17 Calcium Carbonate/Vitamin D3 [Calcium 600-Vit D3 200 Tablet] 1 each PO BID 11/26/17 Mastectomy bras See Label Instructions .ROUTE .COMPLEX #2 11/26/17 Mastectomy prosthesis See Label Instructions .ROUTE .COMPLEX #2 11/26/17 Lidocaine/Prilocaine [Lidocaine-Prilocaine Cream] 30 gm TP DAILY PRN PRN 30 Days #1 cream..g. 12/03/17 Amiodarone HCl [Cordarone] 200 mg PO TID #56 tab 12/14/17 Apixaban [Eliquis] 5 mg PO BID #60 tab 12/14/17 Diltiazem CD [Cardizem CD] 180 mg PO Q12 #60 cap 12/14/17 Ondansetron HCl [Zofran] 4 mg PO Q8H PRN PRN #30 tab 12/14/17 The following prescriptions were given: Ondansetron HCl [Zofran] 4 mg PO Q8H PRN PRN #30 tab PRN Reason: Nausea Diltiazem CD [Cardizem CD] 180 mg PO Q12 #60 cap Apixaban [Eliquis] 5 mg PO BID #60 tab Amiodarone HCl [Cordarone] 200 mg PO TID #56 tab Primary Care Physician: Jessica Aguero DO [Primary Care Provider] - Please follow up with your Primary Care Physician in: 5 to 7 days. Please Follow Up With: Uziel Rick MD When: 3 to 4 weeks Please Follow Up With: Gerhard Moore MD When: 1 to 2 weeks
--- NOTE | 2017-12-14 10:58 | DCINST_ITS ---
- Discharge Diagnoses Current Active Problems: Current Active and Chronic Problems (Last Reviewed 12/03/17 @ 08:50 by Ana Mckinney) Chemotherapy induced nausea and vomiting (Acute) Chemo-induced gastroenteritis (Acute) Positive fecal occult blood test (Acute) You will use the following diet at home:: Cardiac Your food should be the consistency of: Regular Your liquids should be the consistency of: Regular/Thin Discharge Activity: Return to Normal Activity Allergies/Adverse Reactions: Allergies niacin Allergy (Intermediate, Verified 12/06/17 11:58) Swelling Medications to take at Discharge Albuterol Aerosols [Ventolin Aerosols] 2.5 mg INHALATION Q4H PRN PRN 06/16/13 Albuterol IH (ProAir) [Proair Hfa] 2 puff INHALATION Q4H PRN PRN 06/16/13 Lisinopril/Hydrochlorothiazide [Zestoretic 05/02.5 Tablet] 1 tab PO DAILY Omeprazole [Prilosec] 20 mg PO DAILY 06/16/13 Pravastatin [Pravachol] 20 mg PO QHS 06/16/13 Zolpidem Tartrate [Ambien Cr] 12.5 mg PO QHS PRN PRN 12/15/13 Hydrocodone Bitart/Apap 5-325 [[place] 5/325] 1 - 2 tab PO Q4H PRN PRN #30 tab 05/06 Metformin HCl 1,000 mg PO DAILY 09/23/17 Polyethylene Glycol 3350 [Miralax] 17 gm PO DAILY #20 packet 10/03/17 Mometasone/Formoterol [Dulera 100 Mcg/5 Mcg Inhaler] 1 puff INHALATION DAILY Anastrozole [Arimidex] 1 mg PO DAILY 90 Days #90 tab 10/31/17 Calcium Carbonate/Vitamin D3 [Calcium 600-Vit D3 200 Tablet] 1 each PO BID 11/26 Mastectomy bras See Label Instructions .ROUTE .COMPLEX #2 11/26/17 Mastectomy prosthesis See Label Instructions .ROUTE .COMPLEX #2 11/26/17 Lidocaine/Prilocaine [Lidocaine-Prilocaine Cream] 30 gm TP DAILY PRN PRN 30 Days #1 cream..g. 12/03/17 Amiodarone HCl [Cordarone] 200 mg PO TID #56 tab 12/14/17 Apixaban [Eliquis] 5 mg PO BID #60 tab 12/14/17 Diltiazem CD [Cardizem CD] 180 mg PO Q12 #60 cap 12/14/17 Ondansetron HCl [Zofran] 4 mg PO Q8H PRN PRN #30 tab 12/14/17 The following prescriptions were given: Ondansetron HCl [Zofran] 4 mg PO Q8H PRN PRN #30 tab PRN Reason: Nausea Diltiazem CD [Cardizem CD] 180 mg PO Q12 #60 cap Apixaban [Eliquis] 5 mg PO BID #60 tab Amiodarone HCl [Cordarone] 200 mg PO TID #56 tab Primary Care Physician: Jessica Aguero DO [Primary Care Provider] - Please follow up with your Primary Care Physician in: 5 to 7 days. Please Follow Up With: Uziel Rick MD When: 3 to 4 weeks Please Follow Up With: Gerhard Moore MD When: 1 to 2 weeks
--- NOTE | 2017-12-14 10:58 | PCM.DC.SUM ---
Discharge Date and Diagnosis - Problem List Patient Problems: Active and Suspected Problems (Last Reviewed 12/03/17 @ 08:50 by Ana Mckinney) Chemotherapy induced nausea and vomiting (Acute) Chemo-induced gastroenteritis (Acute) Positive fecal occult blood test (Acute) Date of Admission: 12/06/17 Date of Discharge: 12/14/17 - Primary Discharge Diagnosis Active and Suspected Problems (Last Reviewed 12/03/17 @ 08:50 by Ana Mckinney) Chemotherapy induced nausea and vomiting (Acute) Chemo-induced gastroenteritis (Acute) Positive fecal occult blood test (Acute) Paroxysmal atrial fibrillation with rapid ventricular rhythm. - Secondary Discharge Diagnosis Chronic Problems (Last Reviewed 12/03/17 @ 08:50 by Ana Mckinney) Asthma (Chronic) GERD (Chronic) Hypertension (Chronic) Obesity (Chronic) Jody filter in place (Chronic) Encounter for screening for malignant neoplasm of colon (Chronic) Primary cancer of right female breast (Chronic) Hospital Course and Treatment Imaging Results: Diagnostic Data Abdomen X-Ray 12/06/17 16:40 IMPRESSION: Mild ileus suggested. Nonobstructive bowel gas pattern. Mild left basilar atelectasis or developing infiltrate. at 1716 Reported and signed by: Raven Jacobo MD Electronically Signed: Raven Jacobo MD at 17:15 EDT Tel , Service support , Chest CTA 12/09/17 20:50 IMPRESSION: Large hiatal hernia similar to prior studies, compressing the left atrium. Coronary calcification. No evidence of pulmonary embolism. Evidence of old granulomatous disease. No evidence of focal infiltrate. Electronically Signed: Ivis Engle MD at 21:48 EDT Tel , Service support , DRILL BIT SHARPENER: Dr. Rick, cardiology. Dr. Moore, oncology. Operations: None, - - Right mastectomy with sentinel lymph node biopsy Procedures: 2-D Echocardiogram, Stress test Summary of Care Provided: Patient is a 71-year-old lady with history of breast cancer diagnosed in August 2017 for which she underwent radical mastectomy. Currently on chemotherapy with Taxotere and Cytoxan presented with nausea and vomiting. Admitted to regular nursing floor where patient is being managed. 1. Chemo induced gastroenterocolitis: patient has been managed symptomatically with IV fluids antinausea medication and correction of electrolyte. Continue PT/OT. She states that she would not want to have another chemotherapy, but another cycle is about one month from now. Encourage her to continue conversation with oncologist regarding her chemotherapy. 2. Hypokalemia secondary to above corrected per protocol 3. Hemoccult positive stools patient has history of hemorrhoids underwent colonoscopy in [place] [address] Shell no malignancy was found 4. Right breast CA status post radical mastectomy currently on chemo 5. Hypertension-blood pressure controlled, home medications continued with dose adjustment as needed 6. GERD on PPI 7. Mild intermittent asthma 8. History of IVC filter 9. Proximal A. fib She is having recurrent episodes of RVR. Appreciate Cardiology consultation. Amiodarone IV was added, change control specialist to po. Continue amiodarone 200 mg po tid x 7d, bid x 2 weeks, then po qd. Continue Diltiazem PO, dosage increased during the hospital stay Stress test was done, negative (12/13) ECHO: Left ventricular systolic function is normal. The estimated ejection fraction is 65 %. The right atrium is mildly enlarged. There is mild mitral annular calcification. Extension of the mitral annular calcification onto the posterior mitral valve leaflet. Trivial mitral valve insufficiency. Mild tricuspid valve insufficiency. Trivial aortic valve insufficiency. Trivial pulmonic valve insufficiency. Right ventricular systolic pressure estimated to be 42 mmHg. Transmitral diastolic flow velocities suggest diastolic dysfunction (pseudonormal pattern). DVT prophylaxis Eliquis. GI prophylaxis: PPI po. Disposition: Home Discharge Diet: - - Cardiac Discharge Activity: Return to Normal Activity Home Medications: Medications to take at Discharge Albuterol Aerosols [Ventolin Aerosols] 2.5 mg INHALATION Q4H PRN PRN 06/16/13 Albuterol IH (ProAir) [Proair Hfa] 2 puff INHALATION Q4H PRN PRN 06/16/13 Lisinopril/Hydrochlorothiazide [Zestoretic 05/02.5 Tablet] 1 tab PO DAILY 06/16/13 Omeprazole [Prilosec] 20 mg PO DAILY 06/16/13 Pravastatin [Pravachol] 20 mg PO QHS 06/16/13 Zolpidem Tartrate [Ambien Cr] 12.5 mg PO QHS PRN PRN 12/15/13 Hydrocodone Bitart/Apap 5-325 [[place] 5/325] 1 - 2 tab PO Q4H PRN PRN #30 tab 12/30/15 Metformin HCl 1,000 mg PO DAILY 09/23/17 Polyethylene Glycol 3350 [Miralax] 17 gm PO DAILY #20 packet 10/03/17 Mometasone/Formoterol [Dulera 100 Mcg/5 Mcg Inhaler] 1 puff INHALATION DAILY 10/11/17 Anastrozole [Arimidex] 1 mg PO DAILY 90 Days #90 tab 10/31/17 Calcium Carbonate/Vitamin D3 [Calcium 600-Vit D3 200 Tablet] 1 each PO BID 11/26/17 Mastectomy bras See Label Instructions .ROUTE .COMPLEX #2 11/26/17 Mastectomy prosthesis See Label Instructions .ROUTE .COMPLEX #2 11/26/17 Lidocaine/Prilocaine [Lidocaine-Prilocaine Cream] 30 gm TP DAILY PRN PRN 30 Days #1 cream..g. 12/03/17 Amiodarone HCl [Cordarone] 200 mg PO TID #56 tab 12/14/17 Apixaban [Eliquis] 5 mg PO BID #60 tab 12/14/17 Diltiazem CD [Cardizem CD] 180 mg PO Q12 #60 cap 12/14/17 Ondansetron HCl [Zofran] 4 mg PO Q8H PRN PRN #30 tab 12/14/17 Following Prescrptions Were Given to Patient: Ondansetron HCl [Zofran] 4 mg PO Q8H PRN PRN #30 tab PRN Reason: Nausea Diltiazem CD [Cardizem CD] 180 mg PO Q12 #60 cap Apixaban [Eliquis] 5 mg PO BID #60 tab Amiodarone HCl [Cordarone] 200 mg PO TID #56 tab Primary Care Physician: Jessica Aguero DO [Primary Care Provider] - Please follow up with your Primary Care Physician in: 5 to 7 days. Please Follow Up With: Uziel Rick MD When: 3 to 4 weeks Please Follow Up With: Gerhard Moore MD When: 1 to 2 weeks Disposition: Home with Home Health Patient Condition:: Good Medical Necessity - Tobacco Use Smoking Status: Never smoker Meaningful Use Info Meaningful Use Diagnoses (Choose all that apply): None applicable Code Visit Inpatient E&M: 50943 Disch Hosp
[2017-12-14 11:02] VITALS: PULSE 73
--- NOTE | 2017-12-14 11:08 | DS.PCM_ITS ---
Discharge Date and Diagnosis - Problem List Patient Problems: Active and Suspected Problems (Last Reviewed 12/03/17 @ 08:50 by Ana Mckinney) Chemotherapy induced nausea and vomiting (Acute) Chemo-induced gastroenteritis (Acute) Positive fecal occult blood test (Acute) Date of Admission: 12/06/17 Date of Discharge: 12/14/17 - Primary Discharge Diagnosis Active and Suspected Problems (Last Reviewed 12/03/17 @ 08:50 by Ana Mckinney) Chemotherapy induced nausea and vomiting (Acute) Chemo-induced gastroenteritis (Acute) Positive fecal occult blood test (Acute) Paroxysmal atrial fibrillation with rapid ventricular rhythm. - Secondary Discharge Diagnosis Chronic Problems (Last Reviewed 12/03/17 @ 08:50 by Ana Mckinney) Asthma (Chronic) GERD (Chronic) Hypertension (Chronic) Obesity (Chronic) Jody filter in place (Chronic) Encounter for screening for malignant neoplasm of colon (Chronic) Primary cancer of right female breast (Chronic) Hospital Course and Treatment Imaging Results: Diagnostic Data Abdomen X-Ray 12/06/17 16:40 IMPRESSION: Mild ileus suggested. Nonobstructive bowel gas pattern. Mild left basilar atelectasis or developing infiltrate. at 1716 Reported and signed by: Raven Jacobo MD Electronically Signed: Raven Jacobo MD at 17:15 EDT Tel , Service support , Chest CTA 12/09/17 20:50 IMPRESSION: Large hiatal hernia similar to prior studies, compressing the left atrium. Coronary calcification. No evidence of pulmonary embolism. Evidence of old granulomatous disease. No evidence of focal infiltrate. Electronically Signed: Ivis Engle MD at 21:48 EDT Tel , Service support , PAEDIATRIC SURGEON: Dr. Rick, cardiology. Dr. Moore, oncology. Operations: None, - - Right mastectomy with sentinel lymph node biopsy Procedures: 2-D Echocardiogram, Stress test Summary of Care Provided: Patient is a 71-year-old lady with history of breast cancer diagnosed in August 2017 for which she underwent radical mastectomy. Currently on chemotherapy with Taxotere and Cytoxan presented with nausea and vomiting. Admitted to regular nursing floor where patient is being managed. 1. Chemo induced gastroenterocolitis: patient has been managed symptomatically with IV fluids antinausea medication and correction of electrolyte. Continue PT/OT. She states that she would not want to have another chemotherapy , but another cycle is about one month from now. Encourage her to continue conversation with oncologist regarding her chemotherapy. 2. Hypokalemia secondary to above corrected per protocol 3. Hemoccult positive stools patient has history of hemorrhoids underwent colonoscopy in [place] [address] Shell no malignancy was found 4. Right breast CA status post radical mastectomy currently on chemo 5. Hypertension-blood pressure controlled, home medications continued with dose adjustment as needed 6. GERD on PPI 7. Mild intermittent asthma 8. History of IVC filter 9. Proximal A. fib She is having recurrent episodes of RVR. Appreciate Cardiology consultation. Amiodarone IV was added, change advisor to po. Continue amiodarone 200 mg po tid x 7d, bid x 2 weeks, then po qd. Continue Diltiazem PO, dosage increased during the hospital stay Stress test was done, negative (12/13) ECHO: Left ventricular systolic function is normal. The estimated ejection fraction is 65 %. The right atrium is mildly enlarged. There is mild mitral annular calcification. Extension of the mitral annular calcification onto the posterior mitral valve leaflet. Trivial mitral valve insufficiency. Mild tricuspid valve insufficiency. Trivial aortic valve insufficiency. Trivial pulmonic valve insufficiency. Right ventricular systolic pressure estimated to be 42 mmHg. Transmitral diastolic flow velocities suggest diastolic dysfunction ( pseudonormal pattern). DVT prophylaxis Eliquis. GI prophylaxis: PPI po. Disposition: Home Discharge Diet: - - Cardiac Discharge Activity: Return to Normal Activity Home Medications: Medications to take at Discharge Albuterol Aerosols [Ventolin Aerosols] 2.5 mg INHALATION Q4H PRN PRN 06/16/13 Albuterol IH (ProAir) [Proair Hfa] 2 puff INHALATION Q4H PRN PRN 06/16/13 Lisinopril/Hydrochlorothiazide [Zestoretic 05/02.5 Tablet] 1 tab PO DAILY Omeprazole [Prilosec] 20 mg PO DAILY 06/16/13 Pravastatin [Pravachol] 20 mg PO QHS 06/16/13 Zolpidem Tartrate [Ambien Cr] 12.5 mg PO QHS PRN PRN 12/15/13 Hydrocodone Bitart/Apap 5-325 [[place] 5/325] 1 - 2 tab PO Q4H PRN PRN #30 tab 05/06 Metformin HCl 1,000 mg PO DAILY 09/23/17 Polyethylene Glycol 3350 [Miralax] 17 gm PO DAILY #20 packet 10/03/17 Mometasone/Formoterol [Dulera 100 Mcg/5 Mcg Inhaler] 1 puff INHALATION DAILY Anastrozole [Arimidex] 1 mg PO DAILY 90 Days #90 tab 10/31/17 Calcium Carbonate/Vitamin D3 [Calcium 600-Vit D3 200 Tablet] 1 each PO BID 11/26 Mastectomy bras See Label Instructions .ROUTE .COMPLEX #2 11/26/17 Mastectomy prosthesis See Label Instructions .ROUTE .COMPLEX #2 11/26/17 Lidocaine/Prilocaine [Lidocaine-Prilocaine Cream] 30 gm TP DAILY PRN PRN 30 Days #1 cream..g. 12/03/17 Amiodarone HCl [Cordarone] 200 mg PO TID #56 tab 12/14/17 Apixaban [Eliquis] 5 mg PO BID #60 tab 12/14/17 Diltiazem CD [Cardizem CD] 180 mg PO Q12 #60 cap 12/14/17 Ondansetron HCl [Zofran] 4 mg PO Q8H PRN PRN #30 tab 12/14/17 Following Prescrptions Were Given to Patient: Ondansetron HCl [Zofran] 4 mg PO Q8H PRN PRN #30 tab PRN Reason: Nausea Diltiazem CD [Cardizem CD] 180 mg PO Q12 #60 cap Apixaban [Eliquis] 5 mg PO BID #60 tab Amiodarone HCl [Cordarone] 200 mg PO TID #56 tab Primary Care Physician: Jessica Aguero DO [Primary Care Provider] - Please follow up with your Primary Care Physician in: 5 to 7 days. Please Follow Up With: Uziel Rick MD When: 3 to 4 weeks Please Follow Up With: Gerhard Moore MD When: 1 to 2 weeks Disposition: Home with Home Health Patient Condition:: Good Medical Necessity - Tobacco Use Smoking Status: Never smoker Meaningful Use Info Meaningful Use Diagnoses (Choose all that apply): None applicable Code Visit Inpatient E&M: 13913 Disch Hosp
--- NOTE | 2017-12-14 11:58 | PCA ---
D/C Summary, instructions and med list faxed over to [facility] at 1149 and notified Anastasia at [facility] at 1159 of D/C for today, 12/14/17.
--- NOTE | 2017-12-14 12:33 | CASEMGMT ---
Social Work Nursing communicating to this health social work professor that patient has questions about the home health care. Spoke with patient in room. Current plan is for patient to discharge home with spouse and home health services. Patient stating to this health social work professor you are a health social work professor, what are you going to do for me. This health social work professor asking patient for clarification. Patient reporting to need more assistance within the home and to not be sure about discharge home with spouse on this day. This health social work professor explaining that doctor has discharged patient and if patient is reporting to not be able to return home safely that maybe a penitentiary should be looked into. Patient declining to transition to a penitentiary and is reporting to only want to return home. Patient reporting to have financial limitations and to not be able to afford to pay private pay for aides within the home. This health social work professor encouraging patient to apply for Medicaid and then PASSPORT services through [facility] for possibly get aides within the home. Patient declining to apply for medicaid. This health social work professor exploring option of the [facility], patient agreeable to referral being made. This health social work professor voicing that the [facility] may not go to patient home but a referral is worth a try. Patient continues to plan to discharge home with spouse and home health services. Support given. Referral made to the [facility]. PLAN: Discharge home with spouse and home health services. Kia CELESTIN, CORE DRILLER HELPER
--- NOTE | 2017-12-19 15:49 | CASEMGMT ---
MCKENNA SOSA Discharge F/U phone call Lace: 13 Strata: 4 Call date: 12/19/17 Discharge Date: 12/14/17 Time of Call: 1550 Attempted and no answer from pt at this time, message left for pt to call this RN IAN back. SStaten MCKENNA SOSA
--- NOTE | 2017-12-31 09:33 | CCN.REFER ---
This patient does not meet qualifications for CCN at this time. Aparna Dhaliwal LPN
== END 2017-12-14 13:17 | disposition home or self-care (01) | DRG 395 ==
LOC: ED 12:43 → MS3 15:17 → PCU 12-09 20:48
PROVIDERS: Internal Medicine; Internal Medicine Cardiovascular Disease; Admitting Provider Internal Medicine; Emergency Provider Emergency Medicine; Family Provider Internal Medicine; PCP Internal Medicine; Visit Provider Hospitalist
DX: K52.1 Toxic gastroenteritis and colitis (principal); T45.1X5A Adverse effect of antineoplastic and immunosuppressive drugs, initial encounter; Y92.009 Unspecified place in unspecified non-institutional (private) residence as the place of occurrence of the external cause; R11.2 Nausea with vomiting, unspecified; C50.911 Malignant neoplasm of unspecified site of right female breast; Z17.0 Estrogen receptor positive status [ER+]; E87.6 Hypokalemia; D72.829 Elevated white blood cell count, unspecified; I48.0 Paroxysmal atrial fibrillation; I49.1 Atrial premature depolarization; R19.5 Other fecal abnormalities; K21.9 Gastro-esophageal reflux disease without esophagitis; I10 Essential (primary) hypertension; K44.9 Diaphragmatic hernia without obstruction or gangrene; J45.20 Mild intermittent asthma, uncomplicated; E78.5 Hyperlipidemia, unspecified; Z86.711 Personal history of pulmonary embolism; Z90.11 Acquired absence of right breast and nipple; Z79.51 Long term (current) use of inhaled steroids; Z79.891 Long term (current) use of opiate analgesic; Z79.84 Long term (current) use of oral hypoglycemic drugs; Z79.899 Other long term (current) drug therapy; E66.9 Obesity, unspecified; Z68.29 Body mass index [BMI] 29.0-29.9, adult
CPT/HCPCS: 36415; 36591; 71275; 74019; 78452; 80048; 80053; 82274; 82728; 82962; 83540; 83550; 83630; 83735; 84484; 85025; 85027; 85379; 85610; 85730; 87493; 87506; 93005; 93017; 93306; 96367; 96368; 96372; 96413; 96417; 97110; 97116; 97162; 97166; 97530; 97535; 97802; 97803; 99284; A9500; J2505; J7030; J7040; J7050; Q9967; A4216; C8929; J2405; J2785; J3490; J9070; J9171

== ENCOUNTER → 2018-02-25 15:39 | Outpatient (CLI) | payer MEDICARE, SELFPAY ==
--- NOTE | 2018-02-25 15:42 | CT_ITS ---
STUDY: CTA OF THE CHEST REASON FOR EXAM: Female, 72 years old. History of pulmonary embolus. RADIATION DOSAGE (If Supplied By Facility): CTDIvol = ( 14.22 ) mGy, DLP = ( 1068.96 ) mGycm TECHNIQUE: The examination was performed with the intravenous administration of 100ML ml of Isovue 370 contrast material. Post-processing of the angiographic images was performed, with multiplanar reformation and 3D reconstruction. Individualized dose optimization techniques were used for this CT. TECHNICAL QUALITY: Good COMPARISON: December 09, 2017 FINDINGS: There are no filling defects within the pulmonary arteries to suggest an underlying embolus. There are coronary artery calcifications present. There are atherosclerotic calcifications of the aortic arch and descending thoracic aorta. There are calcified mediastinal and hilar lymph nodes. There is a moderate size hiatal hernia present. There is no new focal consolidation. There is a granuloma within the lingula. There are degenerative changes of the thoracic spine. The limited images of the upper abdomen demonstrate splenic granulomas. CT/CTA Chest W/WO Contrast IMPRESSION: No pulmonary embolus identified. Hiatal hernia. Atherosclerosis. Evidence of prior granulomatous disease. Electronically Signed: Rosana Fang MD at 19:13 EDT Tel , Service support ,
== END ==
PROVIDERS: Family Provider Internal Medicine; PCP Internal Medicine
DX: R06.00 Dyspnea, unspecified (principal); R06.02 Shortness of breath; Z86.711 Personal history of pulmonary embolism
CPT/HCPCS: 71275; Q9967

== ENCOUNTER → 2018-02-27 07:11 | Outpatient (CLI) | payer MEDICARE, SELFPAY ==
--- NOTE | 2018-02-27 10:14 | STRESSREP ---
Stress Test Report Date: 02/27/2018 Procedure: Pharmacologic stress nuclear imaging study Indications: Chest pain Consent: Per the patient Procedure: The patient underwent pharmacologic (Regadenoson) evaluation with a peak heart rate of 171 beats per minute (117 % predicted maximal heart rate) and a peak blood pressure of 136/70 mmHg. The baseline ECG demonstrated normal sinus rhythm. The peak pharmacologic ECG demonstrated no obvious ECG changes. There were no cardiac dysrhythmias pretest, during pharmacologic infusion, or recovery. There was no complaint of chest discomfort during pharmacologic infusion or recovery. The examination was discontinued secondary to completion of protocol. Impression: 1. Pharmacologic (Regadenoson) evaluation 2. Peak pharmacologic ECG with no obvious ECG changes. 3. There were no cardiac dysrhythmias pretest, during pharmacologic infusion, or recovery 4. Nuclear images pending Myocardial perfusion imaging study: Technique: The patient was injected with 11.8 millicuries of technetium 99m Cardiolite and subsequently rest SPECT Cardiolite nuclear imaging was obtained in the horizontal long, vertical long, and short axis views. The patient underwent pharmacologic (Regadenoson) evaluation with a peak heart rate of 171 beats per minute (117 % percent predicted maximal heart rate) and a peak blood pressure of 136/70 mmHg. The patient was injected with 35.8 millicuries of technetium 99m Cardiolite and subsequently stress SPECT Cardiolite nuclear imaging was obtained in the horizontal long, vertical long, and short axis views. A gated Cardiolite study at peak stress was obtained. Interpretation: Rest and stress SPECT Cardiolite nuclear imaging status post realignment and normalization correction demonstrate significant extracardiac/gastrointestinal tracer uptake being more prominent at rest as opposed to stress as well as diminished tracer uptake in portions of the basal inferoseptal, basal inferior, and basal inferolateral segments being more prominent at rest as opposed to stress with otherwise relative uniform tracer uptake. There is end systolic thickening and brightening. The gated Cardiolite study demonstrates myocardial thickening and inward wall motion. The reported LVEF is 81 %. Impression: 1. Rest and stress SPECT currently nuclear imaging demonstrate significant extracardiac/gastrointestinal tracer uptake be more prominent at rest as opposed to stress as well as diminished tracer uptake in portions of the basal inferior septal, basal inferior, and basal inferolateral segments being more prominent at rest as opposed to stress with otherwise relative uniform tracer uptake with no post stress myocardial perfusion changes consider diagnostic for associated stress-induced myocardial ischemia or previous myocardial injury/infarction. 2. The gated Cardiolite study reports an LVEF of 81%. This note was generated with LoanLogicsation software. It may contain incorrect words, spelling, and punctuation that were not noted in checking the note before signing.
--- NOTE | 2018-02-27 10:18 | STRESSREP_ITS ---
Stress Test Report Date: 02/27/2018 Procedure: Pharmacologic stress nuclear imaging study Indications: Chest pain Consent: Per the patient Procedure: The patient underwent pharmacologic (Regadenoson) evaluation with a peak heart rate of 171 beats per minute (117 % predicted maximal heart rate) and a peak blood pressure of 136/70 mmHg. The baseline ECG demonstrated normal sinus rhythm. The peak pharmacologic ECG demonstrated no obvious ECG changes. There were no cardiac dysrhythmias pretest, during pharmacologic infusion, or recovery. There was no complaint of chest discomfort during pharmacologic infusion or recovery. The examination was discontinued secondary to completion of protocol. Impression: 1. Pharmacologic (Regadenoson) evaluation 2. Peak pharmacologic ECG with no obvious ECG changes. 3. There were no cardiac dysrhythmias pretest, during pharmacologic infusion, or recovery 4. Nuclear images pending Myocardial perfusion imaging study: Technique: The patient was injected with 11.8 millicuries of technetium 99m Cardiolite and subsequently rest SPECT Cardiolite nuclear imaging was obtained in the horizontal long, vertical long, and short axis views. The patient underwent pharmacologic (Regadenoson) evaluation with a peak heart rate of 171 beats per minute (117 % percent predicted maximal heart rate) and a peak blood pressure of 136/70 mmHg. The patient was injected with 35.8 millicuries of technetium 99m Cardiolite and subsequently stress SPECT Cardiolite nuclear imaging was obtained in the horizontal long, vertical long, and short axis views. A gated Cardiolite study at peak stress was obtained. Interpretation: Rest and stress SPECT Cardiolite nuclear imaging status post realignment and normalization correction demonstrate significant extracardiac/gastrointestinal tracer uptake being more prominent at rest as opposed to stress as well as diminished tracer uptake in portions of the basal inferoseptal, basal inferior, and basal inferolateral segments being more prominent at rest as opposed to stress with otherwise relative uniform tracer uptake. There is end systolic thickening and brightening. The gated Cardiolite study demonstrates myocardial thickening and inward wall motion. The reported LVEF is 81 %. Impression: 1. Rest and stress SPECT currently nuclear imaging demonstrate significant extracardiac/gastrointestinal tracer uptake be more prominent at rest as opposed to stress as well as diminished tracer uptake in portions of the basal inferior septal, basal inferior, and basal inferolateral segments being more prominent at rest as opposed to stress with otherwise relative uniform tracer uptake with no post stress myocardial perfusion changes consider diagnostic for associated stress-induced myocardial ischemia or previous myocardial injury/ infarction. 2. The gated Cardiolite study reports an LVEF of 81%. This note was generated with De [employer]ent[employer] software. It may contain incorrect words, spelling, and punctuation that were not noted in checking the note before signing.
== END ==
PROVIDERS: Family Provider Internal Medicine; PCP Internal Medicine; Visit Provider Physician Assistant Medical
DX: R07.9 Chest pain, unspecified (principal); I48.91 Unspecified atrial fibrillation
CPT/HCPCS: 78452; 93017; A9500; A4216; J2785

== ENCOUNTER → 2018-04-15 10:42 | Outpatient (CLI) | payer MEDICARE, SELFPAY ==
--- NOTE | 2018-04-15 10:54 | BD_ITS ---
STUDY: DUAL ENERGY X-RAY ABSORPTIOMETRY / DXA REASON FOR EXAM: Female, 72 years old. The patient is postmenopausal. Loss of height. TECHNIQUE: Bone Mineral Density (BMD) measurements of lumbar spine and bilateral hips were obtained. COMPARISON: None. FINDINGS: Lumbar Spine (L1-L4): g/cm2 (0.948) / T-score (-1.8) / Z-score (-0.1) Findings are suggestive of osteopenia with a moderate fracture risk. Left Femur Total: g/cm2 (0.793) / T-score (-1.7) / Z-score (0.0) Left Femoral Neck: g/cm2 (0.732) / T-score (-2.2) / Z-score (-0.3) Right Femur Total: g/cm2 (0.650) / T-score (-2.8) / Z-score (-1.2) Right Femoral Neck: g/cm2 (0.627) / T-score (-3.0) / Z-score (-1.1) BD/Dexa Bone Density Study IMPRESSION: The patient is considered osteoporotic as outlined below according to World Wilber Organization (WHO) criteria with a high fracture risk. Reference Information: The T-score is the number of standard deviations above or below the standard which is normal for young adults at their peak bone mineral density. The World Health Organization (WHO) interprets the T-scores as follows: Above -1 Normal bone density Between -1 and -2.5 Osteopenia Equal to / or below -2.5 Osteoporosis As a practical clinical guideline, osteopenia may be graded as follows: Mild -1 through -1.5 Moderate -1.6 through -2.0 Severe -2.1 through -2.4 The Z-score is the number of standard deviations above or below age-matched controls. A Z-score of less than -1.5 would be considered abnormal. References: 1. NIH Osteoporosis and Related Bone Diseases http://www.osteo.org 2. International Society for Clinical Densitometry http://www.iscd.org 3. National Osteoporosis Foundation http://www.nof.org Electronically Signed: Yared Chan MD at 15:14 EDT Tel [phone], Service support ,
== END ==
PROVIDERS: Family Provider Internal Medicine; PCP Internal Medicine; Visit Provider Nurse Practitioner Family
DX: Z78.0 Asymptomatic menopausal state (principal); Z79.811 Long term (current) use of aromatase inhibitors; Z13.820 Encounter for screening for osteoporosis
CPT/HCPCS: 77080

== ENCOUNTER → 2018-05-13 10:00 | Outpatient (CLI) | payer MEDICARE, SELFPAY ==
[2018-05-13 10:18] LABS: Mucous, Urine 0 SEEN /hpf (<or=2+); Red Blood Cells-Urine 0 SEEN /hpf (0-5)
[2018-05-13 11:02] LABS: Absolute Lymphocyte Count 0.96 X10^3/ul (0.83-4.51); Basophil# 0.02 X10^3/uL; Basophil% 0.4 % (0-1); Eosinophils% 3.5 % (0-5); Hematocrit 31.4 % (37-47); Hemoglobin 9.3 g/dl (12.0-15.0); Lymphocyte # 0.96 X10^3/ul (4.0); Mean Corp Hgb Conc 29.6 g/gl (32-36); Mean Corpuscular Hgb 25.9 pg (27.0-32.0); Mean Corpuscular Volume 87.5 fL (81-99); Mean Platelet Vol. 8.8 fl (6.2-12.0); Monocyte# 0.46 X10^3/uL; Monocyte% 8.1 % (0-10); Neutrophil % 70.8 % (47-70); Platelet Count 281 K/mm3 (150-450); RBC Distribution Width CV 15.1 % (11.6-14.6); RBC Distribution Width SD 48.3 fl (35.1-43.9); Red Blood Count 3.59 M/mm3 (4.2-5.4); White Blood Count 5.7 K/mm3 (4.4-11.0)
[2018-05-13 11:03] LABS: POSITIVE COUNT NO; POSITIVE DIFFERENTIAL NO; POSITIVE MORPHOLOGY NO
[2018-05-13 11:06] LABS: Color, Urine Yellow (Yellow); Glucose, Dipstick Normal (Normal); Ketone-Dipstick Negative (Negative); Leukocyte Esterase-Dipstick 500 /ul (Negative); Nitrite-Dipstick Positive (Negative); Occult Blood-Urine 10 /ul (Negative); Protein-Dipstick 15 mg/dl (Negative); Specific Gravity, Urine 1.015 (1.002-1.030); Urine Bilirubin Dipstick Negative (Negative); Urine Clarity Sl. Cloudy (Clear); Urine Urobilinogen Normal (Normal)
[2018-05-13 11:12] LABS: Squamous Epithelial Cells - UA 0-5 SEEN /hpf (5-10); White Blood Cells 25-50 SEEN /hpf (0-5)
[2018-05-13 11:13] LABS: Bacteria 2+ /hpf (None Seen)
[2018-05-13 11:31] LABS: ALB/GLOB Ratio 0.9 RATIO (0.9-2.4); AST(SGOT) 11 U/L (15-37); Alanine Aminotransfer ALT/SGPT 22 U/L (13-56); Albumin, Serum 3.1 g/dL (3.2-5.0); Alkaline Phosphatase 49 U/L (45-117); Anion Gap 7 (5-15); BUN 23 mg/dL (7-18); BUN/Creat Ratio 27.7 RATIO (10-20); Calcium,Total 8.9 mg/dL (8.5-10.1); Chloride 106 mmol/L (98-107); Creatinine, Serum 0.83 mg/dL (0.55-1.02); EST Glomerular Filtration Rate 71 mL/min (>60); Est Glom Filt Rate - Afr Amer 86 mL/min (>60); Globulin 3.3 g/dL (2.2-4.2); Glucose 108 mg/dL (74-106); Potassium 4.3 mmol/L (3.5-5.1); Protein, Total 6.4 g/dL (6.4-8.2); Sodium Level 143 mmol/L (136-145); Thyroid Stim Hormone (TSH) 1.45 uIU/mL (0.358-3.74)
[2018-05-13 11:32] LABS: Vitamin D,25 Hydroxy 25.6 ng/mL (29.95-100.01)
[2018-05-13 11:33] LABS: Microalbumin,Random Urine 54.7 mg/L (NO RANGE EST.); Microalbumin:Creatinine Ratio 39.6 mg/g CRE (<30 mg/g CRE)
[2018-05-15 17:45] LABS: CHOLESTEROL TOTAL 178 mg/dL (100-199); HDL-C 42 mg/dL (>39); HDL-P TOTAL 32.1 umol/L (>=30.5); SMALL LDL-P 498 nmol/L (<=527); TRIGLYCERIDES 170 mg/dL (0-149)
[2018-05-17 14:09] LABS: LDL SIZE 20.8 nm (>20.5); LDL-C 102 mg/dL (0-99); LDL-P 1267 nmol/L (<1000); LP-IR SCORE ** 74 (<=45)
== END ==
PROVIDERS: Family Provider Internal Medicine; PCP Internal Medicine; Referring Provider Internal Medicine; Visit Provider Internal Medicine
DX: R73.02 Impaired glucose tolerance (oral) (principal); I48.91 Unspecified atrial fibrillation; E55.9 Vitamin D deficiency, unspecified; Z51.81 Encounter for therapeutic drug level monitoring
CPT/HCPCS: 36415; 80053; 80061; 81001; 82043; 82306; 82570; 83704; 84443; 85025

== ENCOUNTER → 2018-07-16 09:47 | Outpatient (CLI) | payer MEDICARE, SELFPAY ==
[2018-07-16 09:47] VITALS: BMI 26.9
[2018-07-16 10:03] LABS: Mucous, Urine 0 SEEN /hpf (<or=2+); Red Blood Cells-Urine 0 SEEN /hpf (0-5)
[2018-07-16 11:02] LABS: Glucose, Dipstick Normal (Normal); Ketone-Dipstick Negative (Negative); Leukocyte Esterase-Dipstick 100 /ul (Negative); Nitrite-Dipstick Positive (Negative); Occult Blood-Urine 10 /ul (Negative); Protein-Dipstick 15 mg/dl (Negative); Urine Bilirubin Dipstick Negative (Negative); Urine Urobilinogen Normal (Normal)
[2018-07-16 11:04] LABS: Color, Urine Yellow (Yellow)
[2018-07-16 11:05] LABS: Urine Clarity Clear (Clear)
[2018-07-16 11:17] LABS: Bacteria 4+ /hpf (None Seen); Squamous Epithelial Cells - UA 0-5 SEEN /hpf (5-10); White Blood Cells 0-5 SEEN /hpf (0-5)
[2018-07-16 11:23] LABS: Microalbumin:Creatinine Ratio 21.9 mg/g CRE (<30 mg/g CRE)
[2018-07-16 11:35] LABS: Vitamin D,25 Hydroxy 23.2 ng/mL (29.95-100.01)
[2018-07-16 11:40] LABS: AST(SGOT) 11 U/L (15-37); Alanine Aminotransfer ALT/SGPT 17 U/L (13-56); Albumin, Serum 3.1 g/dL (3.2-5.0); Alkaline Phosphatase 55 U/L (45-117); Anion Gap 7 (5-15); BUN 23 mg/dL (7-18); BUN/Creat Ratio 27.8 RATIO (10-20); Calcium,Total 8.8 mg/dL (8.5-10.1); Chloride 108 mmol/L (98-107); Creatinine, Serum 0.83 mg/dL (0.55-1.02); EST Glomerular Filtration Rate 72 mL/min (>60); Est Glom Filt Rate - Afr Amer 87 mL/min (>60); Globulin 3.2 g/dL (2.2-4.2); Glucose 99 mg/dL (74-106); Potassium 4.5 mmol/L (3.5-5.1); Protein, Total 6.3 g/dL (6.4-8.2); Sodium Level 144 mmol/L (136-145); Thyroid Stim Hormone (TSH) 1.91 uIU/mL (0.358-3.74)
[2018-07-18 12:35] LABS: Cholesterol 211 mg/dL (200); High Density Lipoprotein 52 mg/dL; Triglycerides 151 mg/dL; Very Low Density Lipoprotein 30 mg/dL (5-40)
== END ==
PROVIDERS: Family Provider Internal Medicine; PCP Internal Medicine; Referring Provider Internal Medicine; Visit Provider Internal Medicine
DX: E78.1 Pure hyperglyceridemia (principal); I48.91 Unspecified atrial fibrillation; E55.9 Vitamin D deficiency, unspecified; R73.02 Impaired glucose tolerance (oral)
CPT/HCPCS: 36415; 80053; 80061; 81001; 82043; 82306; 82570; 84443

== ENCOUNTER → 2018-07-17 09:02 | Outpatient (CLI) | payer MEDICARE, SELFPAY ==
[2018-07-16 09:47] VITALS: BMI 26.9
[2018-07-17 09:26] LABS: Absolute Lymphocyte Count 1.01 X10^3/ul (0.83-4.51); Absolute Neutrophil Count 5.1 X10^3/uL (2.0-7.7); Basophil# 0.01 X10^3/uL; Basophil% 0.1 % (0-1); Eosinophil# 0.16 X10^3/uL; Eosinophils% 2.3 % (0-5); Hematocrit 34.8 % (37-47); Hemoglobin 10.3 g/dl (12.0-15.0); Lymphocyte # 1.01 X10^3/ul (4.0); Lymphocyte % 14.4 % (19-41); Mean Corp Hgb Conc 29.6 g/gl (32-36); Mean Corpuscular Hgb 25.7 pg (27.0-32.0); Mean Corpuscular Volume 86.8 fL (81-99); Mean Platelet Vol. 8.5 fl (6.2-12.0); Monocyte# 0.68 X10^3/uL; Monocyte% 9.7 % (0-10); Neutrophil # 5.12 X10^3/uL (2.7-7.7); Neutrophil % 73.4 % (47-70); Platelet Count 256 K/mm3 (150-450); RBC Distribution Width CV 15.3 % (11.6-14.6); Red Blood Count 4.01 M/mm3 (4.2-5.4)
[2018-07-17 09:28] LABS: POSITIVE COUNT NO; POSITIVE DIFFERENTIAL NO; POSITIVE MORPHOLOGY NO
[2018-07-18 22:06] LABS: CHOLESTEROL TOTAL 207 mg/dL (100-199); HDL-C 59 mg/dL (>39); HDL-P TOTAL 43.6 umol/L (>=30.5); SMALL LDL-P 414 nmol/L (<=527); TRIGLYCERIDES 116 mg/dL (0-149)
[2018-07-20 13:31] LABS: LDL SIZE 21.5 nm (>20.5); LDL-C 125 mg/dL (0-99); LDL-P 1257 nmol/L (<1000); LP-IR SCORE ** 47 (<=45)
== END ==
PROVIDERS: Family Provider Internal Medicine; PCP Internal Medicine; Referring Provider Internal Medicine; Visit Provider Internal Medicine
DX: R73.02 Impaired glucose tolerance (oral) (principal)
CPT/HCPCS: 80061; 83704; 85025

== ENCOUNTER → 2018-08-05 15:05 | Outpatient (CLI) | payer MEDICARE, SELFPAY ==
[2018-08-05 14:21] VITALS: BMI 32.8
[2018-08-05 15:38] LABS: Absolute Lymphocyte Count 0.92 X10^3/ul (0.83-4.51); Absolute Neutrophil Count 5.1 X10^3/uL (2.0-7.7); Basophil# 0.02 X10^3/uL; Basophil% 0.3 % (0-1); Eosinophil# 0.11 X10^3/uL; Eosinophils% 1.6 % (0-5); Hemoglobin 10.5 g/dl (12.0-15.0); Lymphocyte # 0.92 X10^3/ul (4.0); Lymphocyte % 13.6 % (19-41); Mean Corpuscular Hgb 26.2 pg (27.0-32.0); Mean Corpuscular Volume 87.3 fL (81-99); Mean Platelet Vol. 8.9 fl (6.2-12.0); Monocyte# 0.64 X10^3/uL; Monocyte% 9.5 % (0-10); Neutrophil # 5.06 X10^3/uL (2.7-7.7); Neutrophil % 74.9 % (47-70); Platelet Count 288 K/mm3 (150-450); RBC Distribution Width CV 16.3 % (11.6-14.6); RBC Distribution Width SD 51.7 fl (35.1-43.9); Red Blood Count 4.01 M/mm3 (4.2-5.4); White Blood Count 6.8 K/mm3 (4.4-11.0)
[2018-08-05 15:43] LABS: POSITIVE COUNT NO; POSITIVE DIFFERENTIAL NO; POSITIVE MORPHOLOGY NO
[2018-08-05 15:58] LABS: Anion Gap 5 (5-15); BUN 29 mg/dL (7-18); BUN/Creat Ratio 28.7 RATIO (10-20); Calcium,Total 8.7 mg/dL (8.5-10.1); Chloride 105 mmol/L (98-107); Creatinine, Serum 1.01 mg/dL (0.55-1.02); EST Glomerular Filtration Rate 57 mL/min (>60); Est Glom Filt Rate - Afr Amer 69 mL/min (>60); Glucose 94 mg/dL (74-106); Potassium 3.7 mmol/L (3.5-5.1); Sodium Level 141 mmol/L (136-145)
[2018-08-05 16:07] LABS: BNP,B-Type NATRIURETIC PEPTIDE 50.9 pg/mL (0-100)
== END ==
PROVIDERS: Family Provider Internal Medicine; PCP Internal Medicine; Referring Provider Physician Assistant Medical; Visit Provider Physician Assistant Medical
DX: R06.09 Other forms of dyspnea (principal); I25.10 Atherosclerotic heart disease of native coronary artery without angina pectoris; I10 Essential (primary) hypertension; E78.5 Hyperlipidemia, unspecified; I48.91 Unspecified atrial fibrillation; R06.00 Dyspnea, unspecified; R60.9 Edema, unspecified
CPT/HCPCS: 36415; 80048; 83880; 85025

== ENCOUNTER → 2018-08-26 10:17 | Outpatient (CLI) | payer MEDICARE, SELFPAY ==
[2018-08-05 14:21] VITALS: BMI 32.8
--- NOTE | 2018-08-26 10:20 | ECHODONC_ITS ---
Version 3 Reason For Study: DYSPNEA/SOB Procedure This was a 2D Doppler, Color Flow transthoracic echocardiogram. Myocardial strain analysis was performed in this exam to aid in the assessment of cardiac function. The study was technically difficult. PT had difficulty lying in left lateral decubitus position due to back and knee pain. Exam performed in department. Left Ventricle Normal LV size. Sigmoid septum. Left ventricular systolic function is normal. The estimated ejection fraction is 65 %. Stage 2 diastolic dysfunction. No regional wall motion abnormalities noted. Right Ventricle Normal RV size. Normal systolic function. Atria Normal left atrium. Normal right atrium. Mitral Valve Normal mitral valve. Mild (1+) eccentric mitral valve insufficiency. Tricuspid Valve Normal tricuspid valve. Mild (1+) tricuspid valve insufficiency. Pulmonary artery systolic pressure is 35 mmHg. Aortic Valve Trisinus/trileaflet aortic valve. Pulmonic Valve Normal pulmonic valve. Great Vessels Mildly dilated aortic root. Calcified aortic root. The pulmonary artery is normal size. Normal inferior vena cava. Pericardium/Pleural No pericardial effusion. MMode/2D Measurements & Calculations LVIDd: 4.9 cm IVSd: 1.1 cm Ao root diam: 3.8 cm LVIDs: 3.7 cm LVPWd: 1.0 cm RVDd: 2.7 cm FS: 24.4 % LAV(MOD-bp): 47.6 ml LA A4 area: 19.6 cm2 RA A4 area: 13.7 cm2 LAV(MOD-bp) Indexed: 24.6 ml/m2 LAV(MOD-sp2): 44.1 ml LAV(MOD-sp4): 51.8 ml Time Measurements MV dec time: 0.25 sec Doppler Measurements & Calculations MV E max matthew: 84.3 cm/sec Lat Peak E' Matthew: 5.9 cm/sec Med Peak E' Matthew: 4.9 cm/sec MV A max matthew: 73.5 cm/sec E/E' lat: 14.4 E/E' med: 17.2 MV E/A: 1.1 Ao V2 max: 145.9 cm/sec LV V1 max: 123.7 cm/sec TR max matthew: 278.9 cm/sec Ao max P.5 mmHg LV V1 max P.1 mmHg TR max P.5 mmHg Interpretation Summary Normal LV size. Left ventricular systolic function is normal. The estimated ejection fraction is 65 %. Mild (1+) tricuspid valve insufficiency. Mildly dilated aortic root. Stage 2 diastolic dysfunction. The global longitudinal strain is normal. The global longitudinal strain = -22.2 % (normal). Ordering Physician: Freya Escalona Referring Physician: Jessica Aguero Performed By: Allyson Boone, RADU, RVT
== END ==
PROVIDERS: Family Provider Internal Medicine; PCP Internal Medicine; Referring Provider Physician Assistant Medical; Visit Provider Physician Assistant Medical
DX: I48.91 Unspecified atrial fibrillation (principal); R06.00 Dyspnea, unspecified; R06.02 Shortness of breath
CPT/HCPCS: 0399T; 93306

== ENCOUNTER → 2018-09-16 10:39 | Outpatient (CLI) | payer MEDICARE, SELFPAY ==
[2018-08-05 14:21] VITALS: BMI 32.8
--- NOTE | 2018-09-16 10:43 | BI_ITS ---
MAMMOGRAPHY - BILATERAL SCREENING REASON FOR EXAM: Female, 72 years old. Routine annual screening examination. PERTINENT HISTORY: Personal history of breast cancer. Prior right mastectomy and chemotherapy. Sister with breast cancer. Aunts with breast cancer. TECHNIQUE: Digital bilateral breast jimena (3D mammographic acquisition) in the CC and MLO projections. 2-D mediolateral oblique (MLO) and craniocaudad (CC) views of both breasts were obtained. CAD: Full Field Digital Mammography with Computer Added Detection was performed. COMPARISON: Comparison is made with prior study dated August 19, 2017 and September 06, 2015. FINDINGS: Breast Composition: There are scattered areas of fibroglandular density. There are no dominant masses or suspicious calcifications. No other significant abnormalities are identified. There has been no significant change since the prior study. BI/SCREEN MAMM (CAD) W/JIMENA UNI L IMPRESSION: Stable bilateral screening mammogram. Yearly follow-up mammogram recommended. (A) ASSESSMENT CATEGORY: BIRADS Category 1: Negative. A letter regarding these results will be sent to the patient by the facility within 30 days. Approximately 10% of breast cancers are not detected by mammography. A normal mammogram should not delay biopsy of a clinically suspicious abnormality. [id number] Electronically Signed: Yared Chan, at 13:29 EST , Service support ,
== END ==
PROVIDERS: Family Provider Internal Medicine; PCP Internal Medicine; Referring Provider Internal Medicine Hematology & Oncology; Visit Provider Internal Medicine Hematology & Oncology
DX: Z12.31 Encounter for screening mammogram for malignant neoplasm of breast (principal)
CPT/HCPCS: 77061; 77063; 77067; G0279

== ENCOUNTER 2018-10-24 11:57 | Inpatient (IN) | payer MEDICARE, SELFPAY ==
[2018-09-17 13:21] VITALS: BMI 31.9
[2018-10-24] VITALS (7 sets, daily range): BP systolic 91–144; BP diastolic 51–82; PULSE 80–101; RESP 15–18; TEMP 36.7–37.1; O2SAT 93–99; BMI 30.7; BMI 30.8; BMI 32.2
--- NOTE | 2018-10-24 12:36 | CT_ITS ---
STUDY: CT ABDOMEN AND PELVIS WITHOUT CONTRAST REASON FOR EXAM: Female, 72 years old. Abdominal pain. RADIATION DOSAGE (If Supplied By Facility): CTDIvol = ( 13.72 ) mGy, DLP = ( 1255.37 ) mGycm TECHNIQUE: Transaxial images were obtained from the dome of the diaphragm to the symphysis pubis without oral contrast, and without intravenous contrast. Sagittal and coronal images were reconstructed. Individualized dose optimization techniques were used for this CT. COMPARISON: Comparison is made with prior study December 31, 2013. FINDINGS: Calcified left hilar lymph node. Coronary artery calcifications. Normal liver. There are surgical clips in the gallbladder fossa consistent with a prior cholecystectomy. There are multiple benign calcified granulomata of the spleen. Normal pancreas. Normal bilateral adrenal glands. Normal right kidney. Normal left kidney. Moderate sized hiatal hernia. Normal small intestine. There is circumferential wall thickening of the descending colon with increased markings in the surrounding fat suggestive of colitis. This extends from the splenic flexure to the region of the sigmoid colon. There are multiple colonic diverticula consistent with diverticulosis. The appendix is visualized and appears normal. There is diffuse atherosclerotic calcification of the abdominal aorta, without a demonstrated aneurysm. Normal inferior vena cava. Normal retroperitoneum. Normal urinary bladder. There is absence of the uterus consistent with a prior hysterectomy. There is a small umbilical hernia containing a nondilated portion of the transverse colon. There are diffuse degenerative changes of the visualized lumbar spine. Status post fusion of the lower lumbar spine. CT/Abdomen/Pelvis W IV Cont ONLY IMPRESSION: Findings suggestive of colitis of the left hemicolon. Small umbilical hernia containing a portion of the transverse colon. Electronically Signed: Yared Chan, at 14:38 EDT , Service support ,
[2018-10-24 13:04] LABS: Absolute Lymphocyte Count 0.55 X10^3/ul (0.83-4.51); Absolute Neutrophil Count 10.8 X10^3/uL (2.0-7.7); Basophil# 0.01 X10^3/uL; Basophil% 0.1 % (0-1); Eosinophil# 0.01 X10^3/uL; Eosinophils% 0.1 % (0-5); Hematocrit 35.2 % (37-47); Hemoglobin 10.7 g/dl (12.0-15.0); Lymphocyte # 0.55 X10^3/ul (4.0); Lymphocyte % 4.5 % (19-41); Mean Corp Hgb Conc 30.4 g/gl (32-36); Mean Corpuscular Hgb 25.8 pg (27.0-32.0); Monocyte# 0.95 X10^3/uL; Monocyte% 7.7 % (0-10); Neutrophil # 10.79 X10^3/uL (2.7-7.7); Neutrophil % 87.6 % (47-70); Platelet Count 216 K/mm3 (150-450); RBC Distribution Width CV 14.4 % (11.6-14.6); RBC Distribution Width SD 44.9 fl (35.1-43.9); Red Blood Count 4.14 M/mm3 (4.2-5.4); White Blood Count 12.3 K/mm3 (4.4-11.0)
[2018-10-24 13:05] LABS: Differential Indicated SCAN CRITERIA MET; POSITIVE COUNT NO; POSITIVE DIFFERENTIAL YES; POSITIVE MORPHOLOGY NO
[2018-10-24 13:17] LABS: ALB/GLOB Ratio 0.9 RATIO (0.9-2.4); AST(SGOT) 11 U/L (15-37); Alanine Aminotransfer ALT/SGPT 13 U/L (13-56); Albumin, Serum 3.2 g/dL (3.2-5.0); Alkaline Phosphatase 65 U/L (45-117); Anion Gap 7 (5-15); BUN 31 mg/dL (7-18); BUN/Creat Ratio 38.8 RATIO (10-20); Calcium,Total 8.8 mg/dL (8.5-10.1); Chloride 105 mmol/L (98-107); EST Glomerular Filtration Rate 75 mL/min (>60); Est Glom Filt Rate - Afr Amer 90 mL/min (>60); Estimated Creatinine Clearance 55.52 ml/min; Globulin 3.4 g/dL (2.2-4.2); Glucose 123 mg/dL (74-106); Lipase 62 U/L (73-393); Potassium 3.3 mmol/L (3.5-5.1); Protein, Total 6.6 g/dL (6.4-8.2); Sodium Level 141 mmol/L (136-145)
[2018-10-24] MEDS: Morphine 4 MG/ML Syringe IV ×2 (13:44→17:09)
[2018-10-24] MEDS: 0.9% Normal Saline 1,000 ML 1000 ML IV (13:44)
[2018-10-24] MEDS: Ondansetron 4 MG/2 ML Vial IV ×2 (13:44→17:09)
[2018-10-24 15:27] LABS: Bacteria 0 SEEN /hpf (None Seen); Mucous, Urine 0 SEEN /hpf (<or=2+)
[2018-10-24 16:02] LABS: Color, Urine Yellow (Yellow); Glucose, Dipstick Normal (Normal); Ketone-Dipstick Negative (Negative); Leukocyte Esterase-Dipstick 25 /ul (Negative); Nitrite-Dipstick Negative (Negative); Occult Blood-Urine 10 /ul (Negative); Protein-Dipstick 15 mg/dl (Negative); Urine Bilirubin Dipstick Negative (Negative); Urine Urobilinogen Normal (Normal)
[2018-10-24 16:07] LABS: Red Blood Cells-Urine 0-5 SEEN /hpf (0-5); Squamous Epithelial Cells - UA 0-5 SEEN /hpf (5-10); Urine Clarity Sl. Cloudy (Clear); White Blood Cells 0-5 SEEN /hpf (0-5)
--- NOTE | 2018-10-24 16:36 | ED.DCSUM_ITS ---
- ER Visit Summary Date of Service: 10/24/18 Chief Complaint: Abdominal pain History of Present Illness: The patient is a [address] Camarena, Dr. peter Hale, Dr. Magaña, and Dr. Rick. She reports that she has abdominal pain began 3 days ago.'s an aching pain is 10-10 at worst and 4-10 currently. Is worsened by nothing relieved by nothing. She reports she has been nauseated and vomited 8 times since yesterday. No blood or emesis. No diarrhea. No matter hematochezia. She denies any fever, chills, or other complaints. Physical Examination: Vitals: Stable. Afebrile. General: Well-nourished and well-developed. Head: Normocephalic atraumatic. Neck: Supple, no lymphadenopathy. No JVD. Nontender. Cardiovascular: Regular rate and rhythm. No murmurs. Respiratory: No respiratory distress. Clear to auscultation bilaterally. Abdominal: Soft, mild left upper and moderate left lower quadrant tenderness to palpation, nondistended, normal bowel sounds. No guarding, rebound, or peritoneal signs. Back: Nontender. Extremities: Nontender, no edema. Skin: Normal color, no rash. Neurologic: Alert and oriented ?3. Cranial nerves II through XII are intact. Normal strength and sensation. Psych: Normal affect. Test Results: CBC is more for a white count 12.3 with 88 segmented neutrophils and 5 lymphocytes. H&H 10.7 35.2. Chem-7 shows a potassium 3.3, glucose 123, BUN of 31. LFTs show an AST of 11. Lipase is normal. Urine is negative. CT abdomen pelvis IV contrast only shows colitis of the left splenic fracture to the sigmoid. Emergency Department Course and Treatment: Patient was treated with morphine and Zofran. She is given a liter normal saline. She is given Cipro and Flagyl IV. She is resting comfortably. Treatment Plan: When I saw that the patient was diagnosed with colitis I did lab add a lactic acid. Clinically she does not appear to have ischemic colitis. She appears very comfortable. She was discussed with Dr. Driver and will be admitted to the hospital for further relation and treatment. Disposition: Admitted in improved condition. Impression: 1. Colitis. This note was generated with [employer] software. It may contain incorrect words, spelling, and punctuation that were not noted in review of the chart prior to signing ED Disposition - Plan for ED Patient: Referrals: Jessica Aguero DO [Primary Care Provider] -
[2018-10-24] MEDS: Ciprofloxacin 400 MG/200 ML BAG 200 MG IV (17:09)
[2018-10-24 17:47] LABS: Lactic Acid 0.8 mmol/L (0.4-2.0)
--- NOTE | 2018-10-24 18:01 | PCM.HP.STD ---
Problem List (1) Colitis Status: Acute (2) Sepsis Status: Acute Qualifiers: Sepsis type: sepsis due to unspecified organism Qualified Code(s): A41.9 - Sepsis, unspecified organism History of Present Illness Date of Admission: 10/24/18 Chief Complaint: abdominal pain The patient is a 72 year old F presents with 3-day history of abdominal pain. Patient states that it is in her right upper quadrant extends over to her left. Patient has been nauseated and is vomiting roughly about 8 times since yesterday. No diarrhea. Patient had similar symptoms back in November when she was on chemotherapy. Patient has not been on chemotherapy since February of last year. In the emergency room, patient had a CAT scan that showed left-sided colitis. Patient received ciprofloxacin and were metronidazole in the emergency room. [] Past Medical History Past Medical History (Chronic Problems): Chronic Problems (Last Reviewed 10/24/18 @ 18:02 by Aníbal Driver DO) Anemia (Chronic) Jody filter in place (Chronic) Encounter for screening for malignant neoplasm of colon (Chronic) Primary cancer of right female breast (Chronic) Abnormal electrocardiogram (Chronic) Hx of deep vein thrombophlebitis of lower extremity (Chronic) Personal history of pulmonary embolism (Chronic) Obstructive sleep apnea (Chronic) Mild Palpitations (Chronic) Hyperlipidemia (Chronic) Paroxysmal atrial tachycardia (Chronic) Osteoporosis (Chronic) Atrial fibrillation (Chronic) HTN (hypertension) (Chronic) S/P lumbar discectomy (Chronic) CAD (coronary artery disease) (Chronic) Hx of mastectomy (Chronic) 10/01/17 Medical History: Medical History (Last Reviewed 10/24/18 @ 18:02 by Aníbal Driver DO) Atrial fibrillation (Chronic) I48.91 HTN (hypertension) (Chronic) I10 GERD (gastroesophageal reflux disease) (Acute) K21.9 CAD (coronary artery disease) (Chronic) I25.10 Anemia D64.9 Asthma J45.909 Breast cancer C50.919 COPD (chronic obstructive pulmonary disease) J44.9 Chest pain R07.9 Constipation K59.00 Hemorrhoid K64.9 Hypercholesterolemia E78.00 Insomnia G47.00 Near syncope R55 Obesity E66.9 PORT REMOVAL 05-01-18 PVD (peripheral vascular disease) I73.9 Rectal prolapse K62.3 port placement Allergies niacin Allergy (Intermediate, Verified 10/24/18 16:41) I DON'T REMEMBER, I CAN'T TAKE IT I CAN'T TAKE IT bee stings Allergy (Uncoded 10/24/18 16:41) Swelling Home Medications: Ambulatory Orders Medication Instructions Recorded Albuterol Aerosols [Ventolin 2.5 mg INHALATION Q4H PRN PRN 06/16/13 Aerosols] Albuterol IH (ProAir) [Proair Hfa] 2 puff INHALATION Q4H PRN PRN 06/16/13 Omeprazole [Prilosec] 20 mg PO DAILY 06/16/13 Pravastatin [Pravachol] 20 mg PO QHS 06/16/13 Hydrocodone Bitart/Apap 5-325 1 - 2 tab PO Q4H PRN PRN #30 tab 12/30/15 [[place] 5/325] Anastrozole [Arimidex] 1 mg PO DAILY 10/24/18 Apixaban [Eliquis] 5 mg PO BID 10/24/18 Calcium Citrate/Vitamin D3 2 tab PO DAILY 10/24/18 [Calcium Citrate - Vit D Caplet] Diltiazem CD [Cardizem CD] 180 mg PO DAILY 10/24/18 Furosemide [Lasix] 20 mg PO DAILY 10/24/18 Lisinopril/Hydrochlorothiazide 1 tab PO DAILY 10/24/18 [Lisinopril-Hctz 10-12.5 mg Tab] Mirtazapine 7.5 mg PO QHS 10/24/18 Potassium Chloride [Klor-Con] 20 meq PO DAILY 10/24/18 Surgical History: Surgical History (Last Reviewed 10/24/18 @ 18:02 by Aníbal Driver DO) S/P cataract extraction (Resolved) Z98.49 S/P partial thyroidectomy (Resolved) E89.0 S/P appendectomy (Resolved) Z90.49 S/P carpal tunnel release (Resolved) Z98.890 History of incisional hernia repair (Resolved) Z98.890, Z87.19 S/P hysterectomy (Resolved) Z90.710 S/P total knee replacement (Resolved) Z96.659 S/P lumbar discectomy (Chronic) Z98.890 Hx of mastectomy (Chronic) Z90.10 18 S/P revision of total knee Z96.659 S/P right breast biopsy Z98.890 Surgical History: cataract, cholecystectomy, herniorrhaphy, hysterectomy, - - Right total knee arthroplasty x3, partial thyroidectomy secondary to thyroid cancer Psychiatric History: No pertinent psych hx 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 Denies: Fever Eyes: Denies: Blurred vision, Double vision HEENT: Denies: Head Aches, Sinus Congestion, Sinus Drainage Cardiovascular: Reports: Chest Pain. Denies: Edema Respiratory: Denies: Cough, Shortness of breath at rest, Sputum production Gastrointestinal: Reports: Abdominal Pain, Nausea, Vomiting. Denies: Diarrhea Genitourinary: Denies: Dysuria Musculoskeletal: Denies: Joint Pain, Joint Tenderness Skin: Reports: Dryness. Denies: Rash, Wounds Neurological: Reports: Balance problems. Denies: Blurred vision, Double vision, Focal weakness, Numbness, Tingling Psychiatric: Denies: Anxiety, Depression Hematologic/ Lymphatic: Reports: Hx of blood clot. Denies: Easy Bruising, Easy Bleeding Comment: A 10 point review of systems were negative except as mentioned in the history of present illness and the other review of systems. VTE Information - Inpt Only VTE Present on Admission: No VTE Mechan Device Prophylaxis: None VTE Pharm Prophylaxis ordered?: No Reason prophylaxis not ordered:: Procedure Not Indicated Patient Problems: Active and Suspected Problems (Last Reviewed 10/24/18 @ 18:02 by Aníbal Driver DO) Colitis (Acute) Sepsis (Acute) - Physical Exam General: Alert, Cooperative, No apparent distress HEENT: Atraumatic, Normocephalic, - - No scleral icterus Oral: Moist Mucosa, No Gingival or Mucosal Lesions/ Ulcerations Neck: No Nodes, Thyroid Normal Size and Texture Lungs: Clear to auscultation, Normal air movement, No rhonchi, No wheeze Cardiovascular: Regular rate, Regular Rhythm, Normal S1, Normal S2, No murmurs Abdomen: Bowel Sounds Present, Soft, Non-Distended, No Hepato-splenomegaly, Hypoactive Bowel Sounds, Tender Extremities: No clubbing, No edema, No Calf Tenderness Skin: No rashes, - - Dry skin Musculoskeletal: No Tenderness to Palpation of Joints or Extremities, No Muscle Wasting Neurological: Neuro grossly intact, Muscle tone normal, Coordination normal Psych/Mental Status: Normal Affect, Appropriate Vital Signs Temp Pulse Resp BP Pulse Ox 36.7 C 88 18 142/60 H 93 10/24/18 17:47 10/24/18 17:47 10/24/18 17:47 10/24/18 17:47 10/24/18 17:47 Oxygen Flow Rate (L/min) 2 Oxygen Delivery Method Room Air Weight: 87.9 kg Body Mass Index (BMI) 32.2 Finger Stick Blood Glucose 80 Laboratory Tests Past 24 Hrs 10/24/18 10/24/18 10/24/18 12:55 12:55 15:20 WBC 12.3 H RBC 4.14 L Hgb 10.7 L Hct 35.2 L MCV 85.0 MCH 25.8 L MCHC 30.4 L RDW 14.4 RDW Differential 44.9 H Plt Count 216 MPV 9.0 Immature Gran % (Auto) 0.000 Neut % (Auto) 87.6 H Lymph % (Auto) 4.5 L [place] % (Auto) 7.7 Eos % (Auto) 0.1 Baso % (Auto) 0.1 Absolute Neuts (auto) 10.8 H Absolute Lymphs (auto) 0.55 L Total Counted Not Reportable Differential Comment COMMENT Sodium 141 Potassium 3.3 L Chloride 105 Carbon Dioxide 29.0 Anion Gap 7 BUN 31 H Creatinine 0.80 Estim Creat Clear Calc 55.52 Est GFR (MDRD) Af Amer 90 Est GFR (MDRD) Non-Af 75 BUN/Creatinine Ratio 38.8 H Glucose 123 H Lactic Acid Calcium 8.8 Total Bilirubin 0.70 AST 11 L ALT 13 Alkaline Phosphatase 65 Total Protein 6.6 Albumin 3.2 Globulin 3.4 Albumin/Globulin Ratio 0.9 Lipase 62 L Urine Color Yellow Urine Clarity Sl. Cloudy Urine pH 5.0 Ur Specific [place] 1.010 Urine Protein 15 H Urine Glucose (UA) Normal Urine Ketones Negative Urine Occult Blood 10 H Urine Nitrite Negative Urine Bilirubin Negative Urine Urobilinogen Normal Ur Leukocyte Esterase 25 H Urine RBC 0-5 SEEN Urine WBC 0-5 SEEN Ur Squamous Epith Cells 0-5 SEEN Urine Bacteria 0 SEEN Urine Mucus 0 SEEN 10/24/18 17:15 WBC RBC Hgb Hct MCV MCH MCHC RDW RDW Differential Plt Count MPV Immature Gran % (Auto) Neut % (Auto) Lymph % (Auto) [place] % (Auto) Eos % (Auto) Baso % (Auto) Absolute Neuts (auto) Absolute Lymphs (auto) Total Counted Differential Comment Sodium Potassium Chloride Carbon Dioxide Anion Gap BUN Creatinine Estim Creat Clear Calc Est GFR (MDRD) Af Amer Est GFR (MDRD) Non-Af BUN/Creatinine Ratio Glucose Lactic Acid 0.8 Calcium Total Bilirubin AST ALT Alkaline Phosphatase Total Protein Albumin Globulin Albumin/Globulin Ratio Lipase Urine Color Urine Clarity Urine pH Ur Specific [place] Urine Protein Urine Glucose (UA) Urine Ketones Urine Occult Blood Urine Nitrite Urine Bilirubin Urine Urobilinogen Ur Leukocyte Esterase Urine RBC Urine WBC Ur Squamous Epith Cells Urine Bacteria Urine Mucus Clinical Impression(s) from Imaging Studies Abdomen/Pelvis CT 10/24/18 12:36 IMPRESSION: Findings suggestive of colitis of the left hemicolon. Small umbilical hernia containing a portion of the transverse colon. Electronically Signed: Yared Chan, at 14:38 EDT , Service support , Assessment/Plan All Active Problems (Last Reviewed 10/24/18 @ 18:02 by Aníbal Driver DO) Colitis (Acute) Sepsis (Acute) Obesity (Acute) Asthma (Acute) Chemotherapy management, encounter for (Resolved) Chemotherapy induced nausea and vomiting (Resolved) Chemo-induced gastroenteritis (Resolved) Positive fecal occult blood test (Acute) Dyspnea (Acute) Antineoplastic chemotherapy induced anemia (Resolved) S/P cataract extraction (Resolved) GERD (gastroesophageal reflux disease) (Acute) S/P partial thyroidectomy (Resolved) S/P appendectomy (Resolved) S/P carpal tunnel release (Resolved) History of incisional hernia repair (Resolved) S/P hysterectomy (Resolved) S/P total knee replacement (Resolved) Pulmonary embolism status post [place] (Resolved) Thyroid cancer (Resolved) Thyroid cancer (Resolved) 1. Acute colitis Suspect infectious Doubt inflammatory as patient is never had this before and I doubt ischemic given that her lactate was normal Check stool studies for enteric pathogens. Patient stated that she had some normal bowel movements so C. difficile appears to be very unlikely Continue with ciprofloxacin and metronidazole 2. Sepsis Present on admission secondary to colitis Supportive management Met 2 out of 4 Sirs criteria with tachycardia with heart rate of 101 as well as leukocytosis greater than 12 3. History of VT E Continue with Eliquis 4. Debility Physical and occupational therapy to evaluate and treat I anticipate this patient's hospitalization lasting 48 hours.
--- NOTE | 2018-10-24 18:07 | HP.PCM_ITS ---
Problem List (1) Colitis Status: Acute (2) Sepsis Status: Acute Qualifiers: Sepsis type: sepsis due to unspecified organism Qualified Code(s): A41.9 - Sepsis, unspecified organism History of Present Illness Date of Admission: 10/24/18 Chief Complaint: abdominal pain The patient is a 72 year old F presents with 3-day history of abdominal pain. Patient states that it is in her right upper quadrant extends over to her left. Patient has been nauseated and is vomiting roughly about 8 times since yesterday. No diarrhea. Patient had similar symptoms back in November when she was on chemotherapy. Patient has not been on chemotherapy since February of last year. In the emergency room, patient had a CAT scan that showed left-sided colitis. Patient received ciprofloxacin and were metronidazole in the emergency room. [] Past Medical History Past Medical History (Chronic Problems): Chronic Problems (Last Reviewed 10/24/18 @ 18:02 by Aníbal Driver DO) Anemia (Chronic) Jody filter in place (Chronic) Encounter for screening for malignant neoplasm of colon (Chronic) Primary cancer of right female breast (Chronic) Abnormal electrocardiogram (Chronic) Hx of deep vein thrombophlebitis of lower extremity (Chronic) Personal history of pulmonary embolism (Chronic) Obstructive sleep apnea (Chronic) Mild Palpitations (Chronic) Hyperlipidemia (Chronic) Paroxysmal atrial tachycardia (Chronic) Osteoporosis (Chronic) Atrial fibrillation (Chronic) HTN (hypertension) (Chronic) S/P lumbar discectomy (Chronic) CAD (coronary artery disease) (Chronic) Hx of mastectomy (Chronic) 10/01/17 Medical History: Medical History (Last Reviewed 10/24/18 @ 18:02 by Aníbal Driver DO) Atrial fibrillation (Chronic) I48.91 HTN (hypertension) (Chronic) I10 GERD (gastroesophageal reflux disease) (Acute) K21.9 CAD (coronary artery disease) (Chronic) I25.10 Anemia D64.9 Asthma J45.909 Breast cancer C50.919 COPD (chronic obstructive pulmonary disease) J44.9 Chest pain R07.9 Constipation K59.00 Hemorrhoid K64.9 Hypercholesterolemia E78.00 Insomnia G47.00 Near syncope R55 Obesity E66.9 PORT REMOVAL 05-01-18 PVD (peripheral vascular disease) I73.9 Rectal prolapse K62.3 port placement Allergies niacin Allergy (Intermediate, Verified 10/24/18 16:41) I DON'T REMEMBER, I CAN'T TAKE IT I CAN'T TAKE IT bee stings Allergy (Uncoded 10/24/18 16:41) Swelling Home Medications: Ambulatory Orders Medication Instructions Recorded Albuterol Aerosols [Ventolin 2.5 mg INHALATION Q4H PRN PRN 06/16/13 Aerosols] Albuterol IH (ProAir) [Proair Hfa] 2 puff INHALATION Q4H PRN PRN 06/16/13 Omeprazole [Prilosec] 20 mg PO DAILY 06/16/13 Pravastatin [Pravachol] 20 mg PO QHS 06/16/13 Hydrocodone Bitart/Apap 5-325 1 - 2 tab PO Q4H PRN PRN #30 tab 12/30/15 [[place] 5/325] Anastrozole [Arimidex] 1 mg PO DAILY 10/24/18 Apixaban [Eliquis] 5 mg PO BID 10/24/18 Calcium Citrate/Vitamin D3 2 tab PO DAILY 10/24/18 [Calcium Citrate - Vit D Caplet] Diltiazem CD [Cardizem CD] 180 mg PO DAILY 10/24/18 Furosemide [Lasix] 20 mg PO DAILY 10/24/18 Lisinopril/Hydrochlorothiazide 1 tab PO DAILY 10/24/18 [Lisinopril-Hctz 10-12.5 mg Tab] Mirtazapine 7.5 mg PO QHS 10/24/18 Potassium Chloride [Klor-Con] 20 meq PO DAILY 10/24/18 Surgical History: Surgical History (Last Reviewed 10/24/18 @ 18:02 by Aníbal Driver DO) S/P cataract extraction (Resolved) Z98.49 S/P partial thyroidectomy (Resolved) E89.0 S/P appendectomy (Resolved) Z90.49 S/P carpal tunnel release (Resolved) Z98.890 History of incisional hernia repair (Resolved) Z98.890, Z87.19 S/P hysterectomy (Resolved) Z90.710 S/P total knee replacement (Resolved) Z96.659 S/P lumbar discectomy (Chronic) Z98.890 Hx of mastectomy (Chronic) Z90.10 18 S/P revision of total knee Z96.659 S/P right breast biopsy Z98.890 Surgical History: cataract, cholecystectomy, herniorrhaphy, hysterectomy, - - Right total knee arthroplasty x3, partial thyroidectomy secondary to thyroid cancer Psychiatric History: No pertinent psych hx 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 Denies: Fever Eyes: Denies: Blurred vision, Double vision HEENT: Denies: Head Aches, Sinus Congestion, Sinus Drainage Cardiovascular: Reports: Chest Pain. Denies: Edema Respiratory: Denies: Cough, Shortness of breath at rest, Sputum production Gastrointestinal: Reports: Abdominal Pain, Nausea, Vomiting. Denies: Diarrhea Genitourinary: Denies: Dysuria Musculoskeletal: Denies: Joint Pain, Joint Tenderness Skin: Reports: Dryness. Denies: Rash, Wounds Neurological: Reports: Balance problems. Denies: Blurred vision, Double vision, Focal weakness, Numbness, Tingling Psychiatric: Denies: Anxiety, Depression Hematologic/ Lymphatic: Reports: Hx of blood clot. Denies: Easy Bruising, Easy Bleeding Comment: A 10 point review of systems were negative except as mentioned in the history of present illness and the other review of systems. VTE Information - Inpt Only VTE Present on Admission: No VTE Mechan Device Prophylaxis: None VTE Pharm Prophylaxis ordered?: No Reason prophylaxis not ordered:: Procedure Not Indicated Patient Problems: Active and Suspected Problems (Last Reviewed 10/24/18 @ 18:02 by Aníbal Driver DO) Colitis (Acute) Sepsis (Acute) - Physical Exam General: Alert, Cooperative, No apparent distress HEENT: Atraumatic, Normocephalic, - - No scleral icterus Oral: Moist Mucosa, No Gingival or Mucosal Lesions/ Ulcerations Neck: No Nodes, Thyroid Normal Size and Texture Lungs: Clear to auscultation, Normal air movement, No rhonchi, No wheeze Cardiovascular: Regular rate, Regular Rhythm, Normal S1, Normal S2, No murmurs Abdomen: Bowel Sounds Present, Soft, Non-Distended, No Hepato-splenomegaly, Hypoactive Bowel Sounds, Tender Extremities: No clubbing, No edema, No Calf Tenderness Skin: No rashes, - - Dry skin Musculoskeletal: No Tenderness to Palpation of Joints or Extremities, No Muscle Wasting Neurological: Neuro grossly intact, Muscle tone normal, Coordination normal Psych/Mental Status: Normal Affect, Appropriate Vital Signs Temp Pulse Resp BP Pulse Ox 36.7 C 88 18 142/60 H 93 10/24/18 17:47 10/24/18 17:47 10/24/18 17:47 10/24/18 17:47 10/24/18 17:47 Oxygen Flow Rate (L/min) 2 Oxygen Delivery Method Room Air Weight: 87.9 kg Body Mass Index (BMI) 32.2 Finger Stick Blood Glucose 80 Laboratory Tests Past 24 Hrs 10/24/18 10/24/18 10/24/18 12:55 12:55 15:20 WBC 12.3 H RBC 4.14 L Hgb 10.7 L Hct 35.2 L MCV 85.0 MCH 25.8 L MCHC 30.4 L RDW 14.4 RDW Differential 44.9 H Plt Count 216 MPV 9.0 Immature Gran % (Auto) 0.000 Neut % (Auto) 87.6 H Lymph % (Auto) 4.5 L [place] % (Auto) 7.7 Eos % (Auto) 0.1 Baso % (Auto) 0.1 Absolute Neuts (auto) 10.8 H Absolute Lymphs (auto) 0.55 L Total Counted Not Reportable Differential Comment COMMENT Sodium 141 Potassium 3.3 L Chloride 105 Carbon Dioxide 29.0 Anion Gap 7 BUN 31 H Creatinine 0.80 Estim Creat Clear Calc 55.52 Est GFR (MDRD) Af Amer 90 Est GFR (MDRD) Non-Af 75 BUN/Creatinine Ratio 38.8 H Glucose 123 H Lactic Acid Calcium 8.8 Total Bilirubin 0.70 AST 11 L ALT 13 Alkaline Phosphatase 65 Total Protein 6.6 Albumin 3.2 Globulin 3.4 Albumin/Globulin Ratio 0.9 Lipase 62 L Urine Color Yellow Urine Clarity Sl. Cloudy Urine pH 5.0 Ur Specific [place] 1.010 Urine Protein 15 H Urine Glucose (UA) Normal Urine Ketones Negative Urine Occult Blood 10 H Urine Nitrite Negative Urine Bilirubin Negative Urine Urobilinogen Normal Ur Leukocyte Esterase 25 H Urine RBC 0-5 SEEN Urine WBC 0-5 SEEN Ur Squamous Epith Cells 0-5 SEEN Urine Bacteria 0 SEEN Urine Mucus 0 SEEN 10/24/18 17:15 WBC RBC Hgb Hct MCV MCH MCHC RDW RDW Differential Plt Count MPV Immature Gran % (Auto) Neut % (Auto) Lymph % (Auto) [place] % (Auto) Eos % (Auto) Baso % (Auto) Absolute Neuts (auto) Absolute Lymphs (auto) Total Counted Differential Comment Sodium Potassium Chloride Carbon Dioxide Anion Gap BUN Creatinine Estim Creat Clear Calc Est GFR (MDRD) Af Amer Est GFR (MDRD) Non-Af BUN/Creatinine Ratio Glucose Lactic Acid 0.8 Calcium Total Bilirubin AST ALT Alkaline Phosphatase Total Protein Albumin Globulin Albumin/Globulin Ratio Lipase Urine Color Urine Clarity Urine pH Ur Specific [place] Urine Protein Urine Glucose (UA) Urine Ketones Urine Occult Blood Urine Nitrite Urine Bilirubin Urine Urobilinogen Ur Leukocyte Esterase Urine RBC Urine WBC Ur Squamous Epith Cells Urine Bacteria Urine Mucus Clinical Impression(s) from Imaging Studies Abdomen/Pelvis CT 10/24/18 12:36 IMPRESSION: Findings suggestive of colitis of the left hemicolon. Small umbilical hernia containing a portion of the transverse colon. Electronically Signed: Yared Chan, at 14:38 EDT , Service support , Assessment/Plan All Active Problems (Last Reviewed 10/24/18 @ 18:02 by Aníbal Driver DO) Colitis (Acute) Sepsis (Acute) Obesity (Acute) Asthma (Acute) Chemotherapy management, encounter for (Resolved) Chemotherapy induced nausea and vomiting (Resolved) Chemo-induced gastroenteritis (Resolved) Positive fecal occult blood test (Acute) Dyspnea (Acute) Antineoplastic chemotherapy induced anemia (Resolved) S/P cataract extraction (Resolved) GERD (gastroesophageal reflux disease) (Acute) S/P partial thyroidectomy (Resolved) S/P appendectomy (Resolved) S/P carpal tunnel release (Resolved) History of incisional hernia repair (Resolved) S/P hysterectomy (Resolved) S/P total knee replacement (Resolved) Pulmonary embolism status post [place] (Resolved) Thyroid cancer (Resolved) Thyroid cancer (Resolved) 1. Acute colitis * Suspect infectious * Doubt inflammatory as patient is never had this before and I doubt ischemic given that her lactate was normal * Check stool studies for enteric pathogens. Patient stated that she had some normal bowel movements so C. difficile appears to be very unlikely * Continue with ciprofloxacin and metronidazole 2. Sepsis * Present on admission secondary to colitis * Supportive management * Met 2 out of 4 Sirs criteria with tachycardia with heart rate of 101 as well as leukocytosis greater than 12 3. History of VT E * Continue with Eliquis 4. Debility * Physical and occupational therapy to evaluate and treat I anticipate this patient's hospitalization lasting 48 hours.
[2018-10-24] MEDS: 0.9% Normal Saline 1,000 ML 100 ML IV (19:04)
[2018-10-24] MEDS: Morphine 2 MG/ML Syringe IV (20:47)
[2018-10-24] MEDS: APIXABAN 5 MG TABLET PO (21:35)
[2018-10-24] MEDS: Mirtazapine 15 MG Tablet 7.5 MG PO (21:35)
[2018-10-25 02:31] VITALS: BP 117/55; PULSE 95; RESP 16; TEMP 36.9; O2SAT 95
[2018-10-25] MEDS: 0.9% Normal Saline 1,000 ML 100 ML IV ×2 (04:20→17:02)
[2018-10-25 07:06] LABS: Absolute Lymphocyte Count 0.85 X10^3/ul (0.83-4.51); Absolute Neutrophil Count 7.2 X10^3/uL (2.0-7.7); Basophil# 0.01 X10^3/uL; Basophil% 0.1 % (0-1); Eosinophil# 0.17 X10^3/uL; Eosinophils% 1.9 % (0-5); Hematocrit 28.5 % (37-47); Hemoglobin 8.7 g/dl (12.0-15.0); Lymphocyte # 0.85 X10^3/ul (4.0); Lymphocyte % 9.5 % (19-41); Mean Corp Hgb Conc 30.5 g/gl (32-36); Mean Corpuscular Hgb 26.8 pg (27.0-32.0); Mean Corpuscular Volume 87.7 fL (81-99); Mean Platelet Vol. 8.9 fl (6.2-12.0); Monocyte# 0.74 X10^3/uL; Monocyte% 8.2 % (0-10); Neutrophil # 7.21 X10^3/uL (2.7-7.7); Neutrophil % 80.2 % (47-70); Platelet Count 191 K/mm3 (150-450); RBC Distribution Width CV 14.6 % (11.6-14.6); RBC Distribution Width SD 46.7 fl (35.1-43.9); Red Blood Count 3.25 M/mm3 (4.2-5.4)
[2018-10-25 07:21] LABS: POSITIVE COUNT NO; POSITIVE DIFFERENTIAL NO; POSITIVE MORPHOLOGY NO
[2018-10-25 07:29] LABS: Anion Gap 8 (5-15); BUN 20 mg/dL (7-18); BUN/Creat Ratio 29.7 RATIO (10-20); Calcium,Total 8.2 mg/dL (8.5-10.1); Chloride 111 mmol/L (98-107); Creatinine, Serum 0.67 mg/dL (0.55-1.02); EST Glomerular Filtration Rate 91 mL/min (>60); Est Glom Filt Rate - Afr Amer 110 mL/min (>60); Estimated Creatinine Clearance 44.41 ml/min; Glucose 130 mg/dL (74-106); Potassium 3.4 mmol/L (3.5-5.1); Sodium Level 144 mmol/L (136-145)
[2018-10-25 09:47] VITALS: BP 142/72; PULSE 93; RESP 16; TEMP 36.8; O2SAT 95
[2018-10-25] MEDS: HYDROcodone Bitartrate/Apap 5/325 Tablet PO ×2 (09:49→22:27)
[2018-10-25] MEDS: APIXABAN 5 MG TABLET PO ×2 (09:50→22:28)
[2018-10-25] MEDS: dilTIAZem CD 180 MG Capsule PO (09:50)
[2018-10-25] MEDS: Pantoprazole Sodium 20 MG Tablet PO (09:50)
[2018-10-25] MEDS: Ensure Clear 120 ML Liquid PO ×3 (09:52→22:28)
[2018-10-25] MEDS: Ciprofloxacin 400 MG/200 ML BAG 200 MG IV ×2 (09:53→22:27)
[2018-10-25 13:37] VITALS: BP 135/66; PULSE 81; RESP 18; TEMP 36.9; O2SAT 97
--- NOTE | 2018-10-25 16:06 | PCM.PN.HOSP ---
Patient Problems: Active and Suspected Problems (Last Reviewed 10/24/18 @ 18:02 by Aníbal Driver DO) Colitis (Acute) Sepsis (Acute) Subjective: Patient was admitted for 3 days of abdominal pain. Pain is mainly at right upper quadrant and left upper quadrant. She also has multiple episodes of vomiting nausea but no GI bleed. The patient had similar symptoms in November 2017 when she was on chemo but she is off chemo since February 2018. Complain of pain about 7-8/10 intensity. She is reluctant to take opioids as she also have chronic constipation. Vitals/I&O's: Vital Signs Temp Pulse Resp BP Pulse Ox 98.4 F 81 18 135/66 H 97 10/25/18 13:37 10/25/18 13:37 10/25/18 13:37 10/25/18 13:37 10/25/18 13:37 Oxygen Flow Rate (L/min) 2 Oxygen Delivery Method Room Air Weight: 193 lb 12.581 oz Body Mass Index (BMI) 32.2 Finger Stick Blood Glucose 80 Intake and Output for Last 24 Hours 10/23/18 10/24/18 10/25/18 23:59 23:59 23:59 Intake Total 2315 / 2315 Output Total 300 / 300 Balance 2014 General: Alert, Oriented x3, Cooperative HEENT: Atraumatic, PERRLA, EOMI, Normocephalic Neck: Supple, No JVD, Negative Carotid Bruits Lungs: No rhonchi, No wheeze, No rales, Diminished Cardiovascular: Regular rate, Regular Rhythm, Normal S1, Normal S2, No murmurs Abdomen: Bowel Sounds Present, Soft, Hypoactive Bowel Sounds, Tender - Tenderness present over right upper and left upper quadrants. Extremities: No edema, Capillary Refill Less than 3 Seconds Skin: No rashes, No breakdown Musculoskeletal: No Tenderness to Palpation of Joints or Extremities, Arthritic Changes Lymphatic: No Cervical, Supraclavicular, or Inguinal Adenopathy Neurological: Cranial nerves II-XII grossly intact, Deep Tendon Reflexes 2+/4 and Symmetrical, Neuro grossly intact Psych/Mental Status: Normal Affect, Appropriate Laboratory Results 10/24/18 15:20: Urine Clarity Sl. Cloudy, Urine RBC 0-5 SEEN, Urine WBC 0-5 SEEN, Ur Squamous Epith Cells 0-5 SEEN, Urine Bacteria 0 SEEN, Urine Mucus 0 SEEN 10/24/18 17:15: Lactic Acid 0.8 10/25/18 06:12: WBC 9.0, RBC 3.25 L, Hgb 8.7 L, Hct 28.5 L, MCV 87.7, MCH 26.8 L, MCHC 30.5 L, RDW 14.6, RDW Differential 46.7 H, Plt Count 191, MPV 8.9, Immature Gran % (Auto) 0.100, Neut % (Auto) 80.2 H, Lymph % (Auto) 9.5 L, [place] % (Auto) 8.2, Eos % (Auto) 1.9, Baso % (Auto) 0.1, Absolute Neuts (auto) 7.2, Absolute Lymphs (auto) 0.85, Total Counted Not Reportable 10/25/18 06:12: Sodium 144, Potassium 3.4 L, Chloride 111 H, Carbon Dioxide 25.0, Anion Gap 8, BUN 20 H, Creatinine 0.67, Estim Creat Clear Calc 44.41, Est GFR (MDRD) Af Amer 110, Est GFR (MDRD) Non-Af 91, BUN/Creatinine Ratio 29.7 H, Glucose 130 H, Calcium 8.2 L Current Medications Hydrocodone Bitart/Acetaminophen ([place] 5mg-325mg) 1 - 2 tablet PO Q4H PRN PRN PRN Reason: PAIN Last Admin: 10/25/18 09:49 Dose: 1 tablet Albuterol Sulfate (Ventolin Aerosols) 2.5 mg INHALATION Q4H PRN PRN PRN Reason: Asthma Apixaban (Eliquis) 5 mg PO BID [facility] Last Admin: 10/25/18 09:50 Dose: 5 mg Dextrose (D50w Syringe) 0 gm IV X1 PRN; Protocol PRN Reason: Hypoglycemia Diltiazem HCl (Cardizem Cd) 180 mg PO DAILY [facility] Last Admin: 10/25/18 09:50 Dose: 180 mg Glucagon () 1 mg IM .X1 PRN PRN Reason: Hypoglycemia Sodium Chloride () 1,000 mls @ 100 mls/hr IV .Q10H [facility] Last Admin: 10/25/18 04:20 Dose: 100 mls/hr Ciprofloxacin (Cipro) 400 mg in 200 mls @ 200 mls/hr IV Q12 [facility] Last Admin: 10/25/18 09:53 Dose: 200 mls/hr Metronidazole (Flagyl) 500 mg in 100 mls @ 100 mls/hr IV Q8 [facility] Last Admin: 10/25/18 13:34 Dose: 100 mls/hr Mirtazapine (Remeron) 7.5 mg PO QHS [facility] Last Admin: 10/24/18 21:35 Dose: 7.5 mg Morphine Sulfate () 2 mg IV Q3H PRN PRN PRN Reason: Severe pain (7-04/30) Last Admin: 10/24/18 20:47 Dose: 2 mg Nutritional Formula (Lactose Free) (Ensure Clear) 120 ml PO 4X/DAY [facility] Last Admin: 10/25/18 13:34 Dose: Not Given Ondansetron HCl (Zofran) 4 mg IV Q6H PRN PRN PRN Reason: nausea vomiting Pantoprazole Sodium (Protonix) 20 mg PO DAILY [facility] Last Admin: 10/25/18 09:50 Dose: 20 mg Potassium Chloride (K-Dur) 20 meq PO DAILY [facility] Last Admin: 10/25/18 09:50 Dose: 20 meq Potassium Chloride (K-Dur) 40 meq PO BIDCM [facility] Stop: 10/25/18 17:01 Last Admin: 10/25/18 09:49 Dose: 40 meq Pot[facility] Stop: 10/27/18 08:01 Prochlorperazine Edisylate (Compazine Iv) 5 mg IV Q4H PRN PRN PRN Reason: Breakthrough nausea/vomiting Sodium Chloride () 5 - 15 ml IV UD PRN PRN Reason: SALINE FLUSH Medical Necessity - Tobacco Use Smoking Status: Never smoker Assessment/Plan All Active Problems (Last Reviewed 10/24/18 @ 18:02 by Aníbal Driver DO) Colitis (Acute) Sepsis (Acute) Obesity (Acute) Asthma (Acute) Chemotherapy management, encounter for (Resolved) Chemotherapy induced nausea and vomiting (Resolved) Chemo-induced gastroenteritis (Resolved) Positive fecal occult blood test (Acute) Dyspnea (Acute) Antineoplastic chemotherapy induced anemia (Resolved) S/P cataract extraction (Resolved) GERD (gastroesophageal reflux disease) (Acute) S/P partial thyroidectomy (Resolved) S/P appendectomy (Resolved) S/P carpal tunnel release (Resolved) History of incisional hernia repair (Resolved) S/P hysterectomy (Resolved) S/P total knee replacement (Resolved) Pulmonary embolism status post [place]fiel (Resolved) Thyroid cancer (Resolved) Thyroid cancer (Resolved) This is a 72-year-old female with history of right CA breast is status post mastectomy, last chemo February 2018 admitted with 3 days of severe abdominal pain, persistent vomiting with CT evidence of left-sided colitis. 1. Acute left-sided colitis involving descending colon to proximal region of sigmoid colon. Did not had bowel movement for stool specimen collection. Lactate is normal. On IV fluid normal saline. Patient denies antibiotic last 3-6 months. Check stool studies for enteric pathogens. Patient stated that she had some normal bowel movements so C. difficile appears to be very unlikely Continue with ciprofloxacin and metronidazole mild hypokalemia: Potassium replaced 2. Sepsis Present on admission secondary to colitis Supportive management Met 2 out of 4 Sirs criteria with tachycardia with heart rate of 101 as well as leukocytosis greater than 12 3. History of VTE Continue with Eliquis 4. Debility Physical and occupational therapy to evaluate and treat Clinical Impression(s) from Imaging Studies Abdomen/Pelvis CT 10/24/18 12:36 IMPRESSION: Findings suggestive of colitis of the left hemicolon. Small umbilical hernia containing a portion of the transverse colon. Laboratory Results 10/24/18 17:15: Lactic Acid 0.8 10/25/18 06:12: WBC 9.0, RBC 3.25 L, Hgb 8.7 L, Hct 28.5 L, MCV 87.7, MCH 26.8 L, MCHC 30.5 L, RDW 14.6, RDW Differential 46.7 H, Plt Count 191, MPV 8.9, Immature Gran % (Auto) 0.100, Neut % (Auto) 80.2 H, Lymph % (Auto) 9.5 L, [place] % (Auto) 8.2, Eos % (Auto) 1.9, Baso % (Auto) 0.1, Absolute Neuts (auto) 7.2, Absolute Lymphs (auto) 0.85, Total Counted Not Reportable 10/25/18 06:12: Sodium 144, Potassium 3.4 L, Chloride 111 H, Carbon Dioxide 25.0, Anion Gap 8, BUN 20 H, Creatinine 0.67, Estim Creat Clear Calc 44.41, Est GFR (MDRD) Af Amer 110, Est GFR (MDRD) Non-Af 91, BUN/Creatinine Ratio 29.7 H, Glucose 130 H, Calcium 8.2 L Code Visit Inpatient E&M: 15681 Subs Hosp L2
--- NOTE | 2018-10-25 16:12 | PN_ITS ---
Patient Problems: Active and Suspected Problems (Last Reviewed 10/24/18 @ 18:02 by Aníbal Driver DO) Colitis (Acute) Sepsis (Acute) Subjective: Patient was admitted for 3 days of abdominal pain. Pain is mainly at right upper quadrant and left upper quadrant. She also has multiple episodes of vomiting nausea but no GI bleed. The patient had similar symptoms in November 2017 when she was on chemo but she is off chemo since February 2018. Complain of pain about 7-8/10 intensity. She is reluctant to take opioids as she also have chronic constipation. Vitals/I&O's: Vital Signs Temp Pulse Resp BP Pulse Ox 98.4 F 81 18 135/66 H 97 10/25/18 13:37 10/25/18 13:37 10/25/18 13:37 10/25/18 13:37 10/25/18 13:37 Oxygen Flow Rate (L/min) 2 Oxygen Delivery Method Room Air Weight: 193 lb 12.581 oz Body Mass Index (BMI) 32.2 Finger Stick Blood Glucose 80 Intake and Output for Last 24 Hours 10/23/18 10/24/18 10/25/18 23:59 23:59 23:59 Intake Total 2315 / 2315 Output Total 300 / 300 Balance 2014 General: Alert, Oriented x3, Cooperative HEENT: Atraumatic, PERRLA, EOMI, Normocephalic Neck: Supple, No JVD, Negative Carotid Bruits Lungs: No rhonchi, No wheeze, No rales, Diminished Cardiovascular: Regular rate, Regular Rhythm, Normal S1, Normal S2, No murmurs Abdomen: Bowel Sounds Present, Soft, Hypoactive Bowel Sounds, Tender - Tenderness present over right upper and left upper quadrants. Extremities: No edema, Capillary Refill Less than 3 Seconds Skin: No rashes, No breakdown Musculoskeletal: No Tenderness to Palpation of Joints or Extremities, Arthritic Changes Lymphatic: No Cervical, Supraclavicular, or Inguinal Adenopathy Neurological: Cranial nerves II-XII grossly intact, Deep Tendon Reflexes 2+/4 and Symmetrical, Neuro grossly intact Psych/Mental Status: Normal Affect, Appropriate Laboratory Results 10/24/18 15:20: Urine Clarity Sl. Cloudy, Urine RBC 0-5 SEEN, Urine WBC 0-5 SEEN, Ur Squamous Epith Cells 0-5 SEEN, Urine Bacteria 0 SEEN, Urine Mucus 0 SEEN 10/24/18 17:15: Lactic Acid 0.8 10/25/18 06:12: WBC 9.0, RBC 3.25 L, Hgb 8.7 L, Hct 28.5 L, MCV 87.7, MCH 26.8 L , MCHC 30.5 L, RDW 14.6, RDW Differential 46.7 H, Plt Count 191, MPV 8.9, Immature Gran % (Auto) 0.100, Neut % (Auto) 80.2 H, Lymph % (Auto) 9.5 L, [place] % (Auto) 8.2, Eos % (Auto) 1.9, Baso % (Auto) 0.1, Absolute Neuts (auto) 7.2, Absolute Lymphs (auto) 0.85, Total Counted Not Reportable 10/25/18 06:12: Sodium 144, Potassium 3.4 L, Chloride 111 H, Carbon Dioxide 25.0, Anion Gap 8, BUN 20 H, Creatinine 0.67, Estim Creat Clear Calc 44.41, Est GFR (MDRD) Af Amer 110, Est GFR (MDRD) Non-Af 91, BUN/Creatinine Ratio 29.7 H, Glucose 130 H, Calcium 8.2 L Current Medications Hydrocodone Bitart/Acetaminophen ([place] 5mg-325mg) 1 - 2 tablet PO Q4H PRN PRN PRN Reason: PAIN Last Admin: 10/25/18 09:49 Dose: 1 tablet Albuterol Sulfate (Ventolin Aerosols) 2.5 mg INHALATION Q4H PRN PRN PRN Reason: Asthma Apixaban (Eliquis) 5 mg PO BID [facility] Last Admin: 10/25/18 09:50 Dose: 5 mg Dextrose (D50w Syringe) 0 gm IV X1 PRN; Protocol PRN Reason: Hypoglycemia Diltiazem HCl (Cardizem Cd) 180 mg PO DAILY [facility] Last Admin: 10/25/18 09:50 Dose: 180 mg Glucagon () 1 mg IM .X1 PRN PRN Reason: Hypoglycemia Sodium Chloride () 1,000 mls @ 100 mls/hr IV .Q10H [facility] Last Admin: 10/25/18 04:20 Dose: 100 mls/hr Ciprofloxacin (Cipro) 400 mg in 200 mls @ 200 mls/hr IV Q12 [facility] Last Admin: 10/25/18 09:53 Dose: 200 mls/hr Metronidazole (Flagyl) 500 mg in 100 mls @ 100 mls/hr IV Q8 [facility] Last Admin: 10/25/18 13:34 Dose: 100 mls/hr Mirtazapine (Remeron) 7.5 mg PO QHS [facility] Last Admin: 10/24/18 21:35 Dose: 7.5 mg Morphine Sulfate () 2 mg IV Q3H PRN PRN PRN Reason: Severe pain (7-04/30) Last Admin: 10/24/18 20:47 Dose: 2 mg Nutritional Formula (Lactose Free) (Ensure Clear) 120 ml PO 4X/DAY [facility] Last Admin: 10/25/18 13:34 Dose: Not Given Ondansetron HCl (Zofran) 4 mg IV Q6H PRN PRN PRN Reason: nausea vomiting Pantoprazole Sodium (Protonix) 20 mg PO DAILY [facility] Last Admin: 10/25/18 09:50 Dose: 20 mg Potassium Chloride (K-Dur) 20 meq PO DAILY [facility] Last Admin: 10/25/18 09:50 Dose: 20 meq Potassium Chloride (K-Dur) 40 meq PO BIDCM [facility] Stop: 10/25/18 17:01 Last Admin: 10/25/18 09:49 Dose: 40 meq Potassium Chloride ([facility]Dur) [facility] Stop: 10/27/18 08:01 Prochlorperazine Edisylate (Compazine Iv) 5 mg IV Q4H PRN PRN PRN Reason: Breakthrough nausea/vomiting Sodium Chloride () 5 - 15 ml IV UD PRN PRN Reason: SALINE FLUSH Medical Necessity - Tobacco Use Smoking Status: Never smoker Assessment/Plan All Active Problems (Last Reviewed 10/24/18 @ 18:02 by Aníbal Driver DO) Colitis (Acute) Sepsis (Acute) Obesity (Acute) Asthma (Acute) Chemotherapy management, encounter for (Resolved) Chemotherapy induced nausea and vomiting (Resolved) Chemo-induced gastroenteritis (Resolved) Positive fecal occult blood test (Acute) Dyspnea (Acute) Antineoplastic chemotherapy induced anemia (Resolved) S/P cataract extraction (Resolved) GERD (gastroesophageal reflux disease) (Acute) S/P partial thyroidectomy (Resolved) S/P appendectomy (Resolved) S/P carpal tunnel release (Resolved) History of incisional hernia repair (Resolved) S/P hysterectomy (Resolved) S/P total knee replacement (Resolved) Pulmonary embolism status post [place] (Resolved) Thyroid cancer (Resolved) Thyroid cancer (Resolved) This is a 72-year-old female with history of right CA breast is status post mastectomy, last chemo February 2018 admitted with 3 days of severe abdominal pain, persistent vomiting with CT evidence of left-sided colitis. 1. Acute left-sided colitis involving descending colon to proximal region of sigmoid colon. Did not had bowel movement for stool specimen collection. * Lactate is normal. On IV fluid normal saline. * Patient denies antibiotic last 3-6 months. * Check stool studies for enteric pathogens. Patient stated that she had some normal bowel movements so C. difficile appears to be very unlikely * Continue with ciprofloxacin and metronidazole mild hypokalemia: Potassium replaced 2. Sepsis * Present on admission secondary to colitis * Supportive management * Met 2 out of 4 Sirs criteria with tachycardia with heart rate of 101 as well as leukocytosis greater than 12 3. History of VTE * Continue with Eliquis 4. Debility * Physical and occupational therapy to evaluate and treat Clinical Impression(s) from Imaging Studies Abdomen/Pelvis CT 10/24/18 12:36 IMPRESSION: Findings suggestive of colitis of the left hemicolon. Small umbilical hernia containing a portion of the transverse colon. Laboratory Results 10/24/18 17:15: Lactic Acid 0.8 10/25/18 06:12: WBC 9.0, RBC 3.25 L, Hgb 8.7 L, Hct 28.5 L, MCV 87.7, MCH 26.8 L , MCHC 30.5 L, RDW 14.6, RDW Differential 46.7 H, Plt Count 191, MPV 8.9, Immature Gran % (Auto) 0.100, Neut % (Auto) 80.2 H, Lymph % (Auto) 9.5 L, [place] % (Auto) 8.2, Eos % (Auto) 1.9, Baso % (Auto) 0.1, Absolute Neuts (auto) 7.2, Absolute Lymphs (auto) 0.85, Total Counted Not Reportable 10/25/18 06:12: Sodium 144, Potassium 3.4 L, Chloride 111 H, Carbon Dioxide 25.0, Anion Gap 8, BUN 20 H, Creatinine 0.67, Estim Creat Clear Calc 44.41, Est GFR (MDRD) Af Amer 110, Est GFR (MDRD) Non-Af 91, BUN/Creatinine Ratio 29.7 H, Glucose 130 H, Calcium 8.2 L Code Visit Inpatient E&M: 95138 Subs Hosp L2
[2018-10-25 20:35] VITALS: BP 140/84; PULSE 78; RESP 18; TEMP 36.8; O2SAT 96
[2018-10-25] MEDS: Mirtazapine 15 MG Tablet 7.5 MG PO (22:28)
[2018-10-25] MEDS: Anastrozole 1 MG Tablet PO (22:59)
[2018-10-26 03:45] VITALS: BP 147/81; PULSE 76; RESP 18; TEMP 36.6; O2SAT 95
[2018-10-26] MEDS: 0.9% Normal Saline 1,000 ML 100 ML IV ×2 (05:01→17:13)
[2018-10-26 05:55] LABS: Absolute Lymphocyte Count 0.95 X10^3/ul (0.83-4.51); Absolute Neutrophil Count 5.7 X10^3/uL (2.0-7.7); Basophil# 0.02 X10^3/uL; Basophil% 0.3 % (0-1); Eosinophil# 0.22 X10^3/uL; Eosinophils% 2.9 % (0-5); Hematocrit 31.5 % (37-47); Hemoglobin 9.4 g/dl (12.0-15.0); Lymphocyte # 0.95 X10^3/ul (4.0); Lymphocyte % 12.7 % (19-41); Mean Corp Hgb Conc 29.8 g/gl (32-36); Mean Corpuscular Hgb 26.3 pg (27.0-32.0); Mean Corpuscular Volume 88.2 fL (81-99); Mean Platelet Vol. 9.4 fl (6.2-12.0); Monocyte# 0.62 X10^3/uL; Monocyte% 8.3 % (0-10); Neutrophil # 5.65 X10^3/uL (2.7-7.7); Neutrophil % 75.5 % (47-70); Platelet Count 228 K/mm3 (150-450); RBC Distribution Width CV 14.1 % (11.6-14.6); Red Blood Count 3.57 M/mm3 (4.2-5.4); White Blood Count 7.5 K/mm3 (4.4-11.0)
[2018-10-26 06:07] LABS: Anion Gap 5 (5-15); BUN 10 mg/dL (7-18); BUN/Creat Ratio 16.8 RATIO (10-20); Calcium,Total 8.3 mg/dL (8.5-10.1); Chloride 113 mmol/L (98-107); EST Glomerular Filtration Rate 105 mL/min (>60); Est Glom Filt Rate - Afr Amer 127 mL/min (>60); Estimated Creatinine Clearance 44.41 ml/min; Glucose 112 mg/dL (74-106); Potassium 4.2 mmol/L (3.5-5.1); Sodium Level 144 mmol/L (136-145)
[2018-10-26 06:25] LABS: POSITIVE COUNT NO; POSITIVE DIFFERENTIAL NO; POSITIVE MORPHOLOGY NO
[2018-10-26 09:14] VITALS: BP 153/72; PULSE 71; RESP 18; TEMP 36.8; O2SAT 94
[2018-10-26] MEDS: HYDROcodone Bitartrate/Apap 5/325 Tablet PO ×2 (09:16→20:25)
[2018-10-26] MEDS: APIXABAN 5 MG TABLET PO ×2 (09:17→22:21)
[2018-10-26] MEDS: Pantoprazole Sodium 20 MG Tablet PO (09:17)
[2018-10-26] MEDS: Anastrozole 1 MG Tablet PO (09:17)
[2018-10-26] MEDS: dilTIAZem CD 180 MG Capsule PO (09:17)
[2018-10-26] MEDS: Ciprofloxacin 400 MG/200 ML BAG 200 MG IV ×2 (09:20→22:21)
[2018-10-26 13:57] VITALS: BP 162/66; PULSE 75; RESP 18; TEMP 36.8; O2SAT 94
[2018-10-26] MEDS: Ensure Clear 120 ML Liquid PO ×2 (14:00→17:13)
--- NOTE | 2018-10-26 14:14 | PN_ITS ---
Patient Problems: Active and Suspected Problems (Last Reviewed 10/24/18 @ 18:02 by Aníbal Driver DO) Colitis (Acute) Sepsis (Acute) Subjective: Patient did not had fever or chills. Had bowel movement yesterday and stools sample was collected. Patient still complained of left-sided abdominal pain which is better about 5-6 x 10 intensity. Vitals/I&O's: Vital Signs Temp Pulse Resp BP Pulse Ox 98.3 F 75 18 162/66 H 94 10/26/18 13:57 10/26/18 13:57 10/26/18 13:57 10/26/18 13:57 10/26/18 13:57 Oxygen Flow Rate (L/min) 2 Oxygen Delivery Method Room Air Weight: 193 lb 12.581 oz Body Mass Index (BMI) 32.2 Finger Stick Blood Glucose 80 Intake and Output for Last 24 Hours 10/24/18 10/25/18 10/26/18 23:59 23:59 23:59 Intake Total 3751 / 3751 1413 / 1413 Output Total 500 / 500 Balance 3251 / 3251 1413 / 1413 General: Alert, Oriented x3, Cooperative HEENT: Atraumatic, PERRLA, EOMI, Normocephalic Neck: Supple, No JVD, Negative Carotid Bruits Lungs: Clear to auscultation, No rhonchi, No wheeze, No rales, Diminished Cardiovascular: Regular rate, Regular Rhythm, Normal S1, Normal S2, No murmurs Abdomen: Bowel Sounds Present, Soft, Non-Distended, Tender - Mild deep tenderness present over left upper and left lower quadrant corresponding descending colon colitis Extremities: No edema, Capillary Refill Less than 3 Seconds Skin: No rashes, No breakdown Musculoskeletal: No Tenderness to Palpation of Joints or Extremities, Arthritic Changes Neurological: Cranial nerves II-XII grossly intact Psych/Mental Status: Normal Affect, Appropriate Microbiology Past 72 Hours 10/25/18 15:45 Stool Enteric Bacteriology - Final Laboratory Results 10/26/18 04:50: WBC 7.5, RBC 3.57 L, Hgb 9.4 L, Hct 31.5 L, MCV 88.2, MCH 26.3 L , MCHC 29.8 L, RDW 14.1, RDW Differential 44.0 H, Plt Count 228, MPV 9.4, Immature Gran % (Auto) 0.300, Neut % (Auto) 75.5 H, Lymph % (Auto) 12.7 L, [place] % (Auto) 8.3, Eos % (Auto) 2.9, Baso % (Auto) 0.3, Absolute Neuts (auto) 5.7, Absolute Lymphs (auto) 0.95, Total Counted Not Reportable 10/26/18 04:50: Sodium 144, Potassium 4.2, Chloride 113 H, Carbon Dioxide 26.0, Anion Gap 5, BUN 10, Creatinine 0.60, Estim Creat Clear Calc 44.41, Est GFR (MDRD) Af Amer 127, Est GFR (MDRD) Non-Af 105, BUN/Creatinine Ratio 16.8, Glucose 112 H, Calcium 8.3 L Current Medications Hydrocodone Bitart/Acetaminophen ([place] 5mg-325mg) 1 - 2 tablet PO Q4H PRN PRN PRN Reason: PAIN Last Admin: 10/26/18 09:16 Dose: 1 tablet Albuterol Sulfate (Ventolin Aerosols) 2.5 mg INHALATION Q4H PRN PRN PRN Reason: Asthma Anastrozole (Arimidex) 1 mg PO DAILY [facility] Last Admin: 10/26/18 09:17 Dose: 1 mg Apixaban (Eliquis) 5 mg PO BID [facility] Last Admin: 10/26/18 09:17 Dose: 5 mg Dextrose (D50w Syringe) 0 gm IV X1 PRN; Protocol PRN Reason: Hypoglycemia Diltiazem HCl (Cardizem Cd) 180 mg PO DAILY [facility] Last Admin: 10/26/18 09:17 Dose: 180 mg Glucagon () 1 mg IM .X1 PRN PRN Reason: Hypoglycemia Sodium Chloride () 1,000 mls @ 100 mls/hr IV .Q10H [facility] Last Admin: 10/26/18 05:01 Dose: 100 mls/hr Ciprofloxacin (Cipro) 400 mg in 200 mls @ 200 mls/hr IV Q12 [facility] Last Admin: 10/26/18 09:20 Dose: 200 mls/hr Metronidazole (Flagyl) 500 mg in 100 mls @ 100 mls/hr IV Q8 [facility] Last Admin: 10/26/18 14:02 Dose: 100 mls/hr Mirtazapine (Remeron) 7.5 mg PO QHS [facility] Last Admin: 10/25/18 22:28 Dose: 7.5 mg Morphine Sulfate () 2 mg IV Q3H PRN PRN PRN Reason: Severe pain (7-10/10) Last Admin: 10/24/18 20:47 Dose: 2 mg Nutritional Formula (Lactose Free) (Ensure Clear) 120 ml PO 4X/DAY [facility] Last Admin: 10/26/18 14:00 Dose: 120 ml Ondansetron HCl (Zofran) 4 mg IV Q6H PRN PRN PRN Reason: nausea vomiting Pantoprazole Sodium (Protonix) 20 mg PO DAILY [facility] Last Admin: 10/26/18 09:17 Dose: 20 mg Potassium Chloride (K-Dur) 20 meq PO DAILY [facility] Last Admin: 10/26/18 09:16 Dose: 20 meq Potassium [facility]loride ([facility]Dur) [facility] Stop: 10/27/18 08:01 Last Admin: 10/26/18 09:16 Dose: 40 meq Prochlorperazine Edisylate (Compazine Iv) 5 mg IV Q4H PRN PRN PRN Reason: Breakthrough nausea/vomiting Sodium Chloride () 5 - 15 ml IV UD PRN PRN Reason: SALINE FLUSH Medical Necessity - Tobacco Use Smoking Status: Never smoker Assessment/Plan All Active Problems (Last Reviewed 10/24/18 @ 18:02 by Aníbal Driver DO) Colitis (Acute) Sepsis (Acute) Obesity (Acute) Asthma (Acute) Chemotherapy management, encounter for (Resolved) Chemotherapy induced nausea and vomiting (Resolved) Chemo-induced gastroenteritis (Resolved) Positive fecal occult blood test (Acute) Dyspnea (Acute) Antineoplastic chemotherapy induced anemia (Resolved) S/P cataract extraction (Resolved) GERD (gastroesophageal reflux disease) (Acute) S/P partial thyroidectomy (Resolved) S/P appendectomy (Resolved) S/P carpal tunnel release (Resolved) History of incisional hernia repair (Resolved) S/P hysterectomy (Resolved) S/P total knee replacement (Resolved) Pulmonary embolism status post [place] (Resolved) Thyroid cancer (Resolved) Thyroid cancer (Resolved) This is a 72-year-old female with history of right CA breast is status post mastectomy, last chemo February 2018 admitted with 3 days of severe abdominal pain, persistent vomiting with CT evidence of left-sided colitis. 1. Acute left-sided colitis involving descending colon to proximal region of sigmoid colon. Patient had bowel movement yesterday and no blood in the stool. Enteric bacteriology panel negative. * Lactate is normal. On IV fluid normal saline. * Patient denies antibiotic last 6 months. * Continue with ciprofloxacin and metronidazole * mild hypokalemia: Potassium replaced. Repeat K normal 2. Sepsis (Met 2 out of 4 Sirs criteria with tachycardia with heart rate of 101 as well as leukocytosis greater than 12) * Present on admission secondary to colitis * Supportive management 3. History of VTE * Continue with Eliquis 4. Debility * Physical and occupational therapy to evaluate and treat Possible discharge tomorrow a.m on Cipro and Flagyl. Clinical Impression(s) from Imaging Studies Abdomen/Pelvis CT 10/24/18 12:36 IMPRESSION: Findings suggestive of colitis of the left hemicolon. Small umbilical hernia containing a portion of the transverse colon. Microbiology Past 72 Hours 10/25/18 15:45 Stool Enteric Bacteriology - Final Laboratory Results 10/26/18 04:50: WBC 7.5, RBC 3.57 L, Hgb 9.4 L, Hct 31.5 L, MCV 88.2, MCH 26.3 L , MCHC 29.8 L, RDW 14.1, RDW Differential 44.0 H, Plt Count 228, MPV 9.4, Immature Gran % (Auto) 0.300, Neut % (Auto) 75.5 H, Lymph % (Auto) 12.7 L, [place] % (Auto) 8.3, Eos % (Auto) 2.9, Baso % (Auto) 0.3, Absolute Neuts (auto) 5.7, Absolute Lymphs (auto) 0.95, Total Counted Not Reportable 10/26/18 04:50: Sodium 144, Potassium 4.2, Chloride 113 H, Carbon Dioxide 26.0, Anion Gap 5, BUN 10, Creatinine 0.60, Estim Creat Clear Calc 44.41, Est GFR (MDRD) Af Amer 127, Est GFR (MDRD) Non-Af 105, BUN/Creatinine Ratio 16.8, Glucose 112 H, Calcium 8.3 L Signout: Possible discharge tomorrow a.m on Cipro and Flagyl. Code Visit Inpatient E&M: 79062 Subs Hosp L3
[2018-10-26 20:20] VITALS: BP 151/79; PULSE 76; RESP 16; TEMP 36.8; O2SAT 96
[2018-10-26] MEDS: Lisinopril 10 MG Tablet PO (20:25)
--- NOTE | 2018-10-26 20:30 | NURSING ---
Patient went on walk with this RN in hallway, tolerated fairly.
[2018-10-26] MEDS: 0.9% NaCl Peripheral Flush Adult/Peds IV (20:59)
[2018-10-26] MEDS: Mirtazapine 15 MG Tablet 7.5 MG PO (22:21)
[2018-10-27 02:05] VITALS: BP 155/81; PULSE 73; RESP 18; TEMP 36.5; O2SAT 96
[2018-10-27] MEDS: HYDROcodone Bitartrate/Apap 5/325 Tablet PO ×2 (02:05→11:44)
[2018-10-27] MEDS: 0.9% NaCl Peripheral Flush Adult/Peds IV (05:26)
[2018-10-27 07:56] LABS: Absolute Lymphocyte Count 0.83 X10^3/ul (0.83-4.51); Absolute Neutrophil Count 4.5 X10^3/uL (2.0-7.7); Basophil# 0.02 X10^3/uL; Basophil% 0.3 % (0-1); Eosinophil# 0.17 X10^3/uL; Eosinophils% 2.8 % (0-5); Hematocrit 30.3 % (37-47); Hemoglobin 9.3 g/dl (12.0-15.0); Lymphocyte # 0.83 X10^3/ul (4.0); Lymphocyte % 13.8 % (19-41); Mean Corp Hgb Conc 30.7 g/gl (32-36); Mean Corpuscular Hgb 26.3 pg (27.0-32.0); Mean Corpuscular Volume 85.6 fL (81-99); Mean Platelet Vol. 8.6 fl (6.2-12.0); Monocyte# 0.54 X10^3/uL; Neutrophil # 4.46 X10^3/uL (2.7-7.7); Neutrophil % 73.9 % (47-70); Platelet Count 207 K/mm3 (150-450); RBC Distribution Width CV 14.1 % (11.6-14.6); RBC Distribution Width SD 44.6 fl (35.1-43.9); Red Blood Count 3.54 M/mm3 (4.2-5.4)
[2018-10-27 08:03] LABS: POSITIVE COUNT NO; POSITIVE DIFFERENTIAL NO; POSITIVE MORPHOLOGY NO
[2018-10-27 08:13] LABS: Anion Gap 3 (5-15); BUN 6 mg/dL (7-18); BUN/Creat Ratio 9.6 RATIO (10-20); Calcium,Total 8.4 mg/dL (8.5-10.1); Chloride 109 mmol/L (98-107); Creatinine, Serum 0.63 mg/dL (0.55-1.02); EST Glomerular Filtration Rate 99 mL/min (>60); Est Glom Filt Rate - Afr Amer 119 mL/min (>60); Estimated Creatinine Clearance 44.41 ml/min; Glucose 124 mg/dL (74-106); Potassium 3.9 mmol/L (3.5-5.1); Sodium Level 139 mmol/L (136-145)
[2018-10-27] MEDS: Ondansetron 4 MG/2 ML Vial IV (08:57)
[2018-10-27] MEDS: Ciprofloxacin 400 MG/200 ML BAG 200 MG IV (09:30)
--- NOTE | 2018-10-27 09:40 | CASEMGMT ---
RN CM Face to Face with patient for initial transition planning/care coordination assessment. RN CM introduced self and role at [facility]. Patient lying in bed, alert and oriented. Patient willing to participate in assessment and is able to answer all questions appropriately. Care providers, pharmacy, and demographics verified. Patient wishes to discharge home, denies need for home health at this time. Patient states she has no further needs or concerns at this time. CM to follow for discharge planning needs that may arise. PCP: More Specialists: Georgina, oncology; Archana, pulmonogolist; Merline, food concession manager; Sahra, pain [facility] Insurance: [employer] [facility] Prescription Benefit: yes Living Will/HPOA: none LNOK: Living Arrangements: Patient lives a mobile home with ramp to enter the home. Patient states she is independent Transportation: self/ DME/HHC: Patient has BSC, raised toilet, cane, grab bars, walker, rollator, nebulizer at home. Patient has had [facility] HHC in the past. Disposition Plan: Patient to discharge home with family support and follow-up plans in place. Nubia LUCIO, RN, CM
--- NOTE | 2018-10-27 10:01 | DCINST_ITS ---
- Discharge Diagnoses Current Active Problems: Current Active and Chronic Problems (Last Reviewed 10/24/18 @ 18:02 by Aníbal Driver DO) Colitis (Acute) Sepsis (Acute) You will use the following diet at home:: Cardiac Your food should be the consistency of: Regular Your liquids should be the consistency of: Regular/Thin Discharge Activity: Return to Normal Activity Weight Bearing Status: Weight bearing as tolerated Call your doctor if you observe: Fever of 101 or Higher, - - abdominal pain, nausea, vomiting, diarrhea Instructions: ED Gastroenteritis Bacterial Allergies/Adverse Reactions: Allergies niacin Allergy (Intermediate, Verified 10/24/18 16:41) I DON'T REMEMBER, I CAN'T TAKE IT I CAN'T TAKE IT bee stings Allergy (Uncoded 10/24/18 16:41) Swelling Medications to take at Discharge Albuterol Aerosols [Ventolin Aerosols] 2.5 mg INHALATION Q4H PRN PRN 06/16/13 Albuterol IH (ProAir) [Proair Hfa] 2 puff INHALATION Q4H PRN PRN 06/16/13 Omeprazole [Prilosec] 20 mg PO DAILY 06/16/13 Pravastatin [Pravachol] 20 mg PO QHS 06/16/13 Hydrocodone Bitart/Apap 5-325 [[place] 5/325] 1 - 2 tab PO Q4H PRN PRN #30 tab 12/30/15 Anastrozole [Arimidex] 1 mg PO DAILY 10/24/18 Apixaban [Eliquis] 5 mg PO BID 10/24/18 Calcium Citrate/Vitamin D3 [Calcium Citrate - Vit D Caplet] 2 tab PO DAILY 10/24/18 Diltiazem CD [Cardizem CD] 180 mg PO DAILY 10/24/18 Furosemide [Lasix] 20 mg PO DAILY 10/24/18 Mirtazapine 7.5 mg PO QHS 10/24/18 Potassium Chloride [Klor-Con] 20 meq PO DAILY 10/24/18 Lisinopril [Zestril] 10 mg PO DAILY 10/26/18 Ciprofloxacin [Cipro] 500 mg PO BID #14 tablet 10/27/18 Metronidazole 500 mg PO Q8 #21 tablet 10/27/18 The following prescriptions were given: Metronidazole 500 mg PO Q8 #21 tablet Ciprofloxacin [Cipro] 500 mg PO BID #14 tablet Primary Care Physician: Jessica Aguero DO [Primary Care Provider] - Please follow up with your Primary Care Physician in: one week Test Results: Test results from this visit will be discussed in further detail at your follow-up appointment, if applicable. Proposed Discharge Date: 10/27/18
--- NOTE | 2018-10-27 10:01 | PCM.DC.SUM ---
Discharge Date and Diagnosis - Problem List Patient Problems: Active and Suspected Problems (Last Reviewed 10/24/18 @ 18:02 by Aníbal Driver DO) Colitis (Acute) Sepsis (Acute) Date of Admission: 10/24/18 Date of Discharge: 10/27/18 - Primary Discharge Diagnosis Active and Suspected Problems (Last Reviewed 10/24/18 @ 18:02 by Aníbal Driver DO) Colitis (Acute) Sepsis (Acute) - Secondary Discharge Diagnosis Chronic Problems (Last Reviewed 10/24/18 @ 18:02 by Aníbal Driver DO) Anemia (Chronic) [place] filter in place (Chronic) Encounter for screening for malignant neoplasm of colon (Chronic) Primary cancer of right female breast (Chronic) Abnormal electrocardiogram (Chronic) Hx of deep vein thrombophlebitis of lower extremity (Chronic) Personal history of pulmonary embolism (Chronic) Obstructive sleep apnea (Chronic) Mild Palpitations (Chronic) Hyperlipidemia (Chronic) Paroxysmal atrial tachycardia (Chronic) Osteoporosis (Chronic) Atrial fibrillation (Chronic) HTN (hypertension) (Chronic) S/P lumbar discectomy (Chronic) CAD (coronary artery disease) (Chronic) Hx of mastectomy (Chronic) 10/01/17 Hospital Course and Treatment Imaging Results: Diagnostic Data Abdomen/Pelvis CT 10/24/18 12:36 IMPRESSION: Findings suggestive of colitis of the left hemicolon. Small umbilical hernia containing a portion of the transverse colon. Electronically Signed: Yared Chan, at 14:38 EDT , Service support , Operations: None, - Procedures: None Summary of Care Provided: The patient is a 72 year old F with an extensive PMH as listed. SHe was admitted through the ED on 10/24/2018 with a complaint of abdominal pain for 3 days. It was mainly in her right upper quadrant extending to the left upper quadrant with assisted nausea and vomiting. She did not have any diarrhea. He had had similar symptoms back in November 2017 when she had been on chemotherapy for breast cancer symptoms, she hasnt had chemo since February 2018. CT of the abdomen done showed a left-sided colitis involving descending colon to proximal region of sigmoid colon. She was managed for sepsis due to colitis and started on IV ciprofloxacin and metronidazole. she was also hydrated with IVF. PT/OT also evaluated patient and she was deemed as needing additional therapy. Abdominal pain gradually improved significantly and SIRS criteria also resolved. She was able to tolerate a transitional diet. She remained stable and was discharged home on 10/27/2018 with a prescription for p.o. ciprofloxacin and p.o. Flagyl for 7 days, to give a 10-day total course of antibiotics. Of note, patient refused any therapy or home health at home and was also not willing to consider rehab. She is to follow-up with her primary care doctor within 1 week. Patient seen and examined prior to discharge. She still complained of left-sided pain but it was much better than before. She denied any fever chills, palpitations or dizziness, chest pain, abdominal pain, diarrhea vomiting. Review of systems is otherwise negative. Labs and vitals reviewed. Home medications reviewed and reconciled. o/e: Vital Signs Height 5 ft 5 in Weight: 193 lb 12.581 oz Weight in Pounds 193.8 lbs Pulse Ox 96 Temperature 98.0 F Pulse Rate 77 Respiratory Rate 16 Blood Pressure 149/82 Blood Pressure Position Semi-Fowlers [] General: Alert, Oriented x3, Cooperative HEENT: Atraumatic, PERRLA, EOMI, Normocephalic Neck: Supple, No JVD, Negative Carotid Bruits Lungs: Clear to auscultation, No rhonchi, No wheeze, No rales, Diminished Cardiovascular: Regular rate, Regular Rhythm, Normal S1, Normal S2, No murmurs Abdomen: Bowel Sounds Present, Soft, Non-Distended, mild left upper quadrant tenderness with deep palpation. Extremities: No edema, Capillary Refill Less than 3 Seconds Skin: No rashes, No breakdown Musculoskeletal: No Tenderness to Palpation of Joints or Extremities, Arthritic Changes Neurological: Cranial nerves II-XII grossly intact Psych/Mental Status: Normal Affect, Appropriate Plan as detailed above. Patient Problems: Active and Suspected Problems (Last Reviewed 10/24/18 @ 18:02 by Aníbal Driver DO) Colitis (Acute) Sepsis (Acute) - Physical Exam Vital Signs Temp Pulse Resp BP Pulse Ox 97.7 F L 73 18 155/81 H 96 10/27/18 02:05 10/27/18 02:05 10/27/18 02:05 10/27/18 02:05 10/27/18 02:05 Oxygen Flow Rate (L/min) 2 Oxygen Delivery Method Room Air Weight: 193 lb 12.581 oz Body Mass Index (BMI) 32.2 Finger Stick Blood Glucose 80 Intake and Output for Last 24 Hours 10/25/18 10/26/18 10/27/18 23:59 23:59 23:59 Intake Total 3751 / 3751 3141 / 3141 120 / 120 Output Total 500 / 500 200 / 200 Balance 3251 / 3251 2941 / 2941 120 / 120 Microbiology Past 72 Hours 10/25/18 15:45 Enteric Bacteriology - Final Stool Laboratory Tests Past 24 Hrs 10/27/18 10/27/18 07:25 07:25 WBC 6.0 RBC 3.54 L Hgb 9.3 L Hct 30.3 L MCV 85.6 MCH 26.3 L MCHC 30.7 L RDW 14.1 RDW Differential 44.6 H Plt Count 207 MPV 8.6 Immature Gran % (Auto) 0.200 Neut % (Auto) 73.9 H Lymph % (Auto) 13.8 L [place] % (Auto) 9.0 Eos % (Auto) 2.8 Baso % (Auto) 0.3 Absolute Neuts (auto) 4.5 Absolute Lymphs (auto) 0.83 Total Counted Not Reportable Sodium 139 Potassium 3.9 Chloride 109 H Carbon Dioxide 27.0 Anion Gap 3 L BUN 6 L Creatinine 0.63 Estim Creat Clear Calc 44.41 Est GFR (MDRD) Af Amer 119 Est GFR (MDRD) Non-Af 99 BUN/Creatinine Ratio 9.6 L Glucose 124 H Calcium 8.4 L Discharge Diet: - - transitional diet Discharge Activity: Return to Normal Activity Weight Bearing Status: Weight bearing as tolerated Call your doctor if you observe: Fever of 101 or Higher, - - abdominal pain, nausea, vomiting, diarrhea Home Medications: Medications to take at Discharge Albuterol Aerosols [Ventolin Aerosols] 2.5 mg INHALATION Q4H PRN PRN 06/16/13 Albuterol IH (ProAir) [Proair Hfa] 2 puff INHALATION Q4H PRN PRN 06/16/13 Omeprazole [Prilosec] 20 mg PO DAILY 06/16/13 Pravastatin [Pravachol] 20 mg PO QHS 06/16/13 Hydrocodone Bitart/Apap 5-325 [[place] 5/325] 1 - 2 tab PO Q4H PRN PRN #30 tab 12/30/15 Anastrozole [Arimidex] 1 mg PO DAILY 10/24/18 Apixaban [Eliquis] 5 mg PO BID 10/24/18 Calcium Citrate/Vitamin D3 [Calcium Citrate - Vit D Caplet] 2 tab PO DAILY 10/24/18 Diltiazem CD [Cardizem CD] 180 mg PO DAILY 10/24/18 Furosemide [Lasix] 20 mg PO DAILY 10/24/18 Mirtazapine 7.5 mg PO QHS 10/24/18 Potassium Chloride [Klor-Con] 20 meq PO DAILY 10/24/18 Lisinopril [Zestril] 10 mg PO DAILY 10/26/18 Ciprofloxacin [Cipro] 500 mg PO BID #14 tab 10/27/18 Metronidazole 500 mg PO Q8 #21 tab 10/27/18 Following Prescrptions Were Given to Patient: Metronidazole 500 mg PO Q8 #21 tab Ciprofloxacin [Cipro] 500 mg PO BID #14 tab Primary Care Physician: Jessica Aguero DO [Primary Care Provider] - Please follow up with your Primary Care Physician in: one week Patient Instructions: ED Gastroenteritis Bacterial Disposition: Home Minutes spent on discharge:: 35 Patient Condition:: Stable Medical Necessity - Tobacco Use Smoking Status: Never smoker Meaningful Use Info Meaningful Use Diagnoses (Choose all that apply): None applicable Code Visit Inpatient E&M: 54647 Disch Hosp
[2018-10-27 11:00] VITALS: BP 149/82; PULSE 77; RESP 16; TEMP 36.7; O2SAT 96
[2018-10-27] MEDS: Anastrozole 1 MG Tablet PO (11:38)
[2018-10-27] MEDS: Ensure Clear 120 ML Liquid PO ×2 (11:38→13:22)
[2018-10-27] MEDS: APIXABAN 5 MG TABLET PO (11:38)
[2018-10-27] MEDS: dilTIAZem CD 180 MG Capsule PO (11:39)
[2018-10-27] MEDS: Pantoprazole Sodium 20 MG Tablet PO (11:40)
[2018-10-27] MEDS: Lisinopril 10 MG Tablet PO (11:44)
[2018-10-27] MEDS: Furosemide 20 MG Tablet PO (11:44)
[2018-10-27] MEDS: proCHLORPERazine 10 MG/2 ML Vial 5 MG IV (11:45)
--- NOTE | 2018-10-27 15:07 | CHAPLAIN ---
Type of Pastoral Visit _x__ Initial Visit ___ Follow-up Visit ___ On-call Visit ___ General Patient Visit ___ Spiritual Assessment ___ Family Conference ___ Bereavement ___ Rapid Response ___ Code Blue ___ Other (describe below) Pastoral Care Referral From _x__ Patient ___ Family ___ Nurse ___ Physician ___ Crane Follower ___ Medical Insurance Biller ___ Other (describe below) Sacrament/Intervention _x__ Active listening ___ Anointing ___ Evangelical ___ Bereavement ___ Communion _x__ Liz exploration ___ ___ Life review _x__ Prayer ___ Reconciliation ___ Sacrament of Sick _x__ Supportive presence ___ Wedding ___ Other (describe below) Pastoral Comments
--- NOTE | 2018-10-28 14:18 | CASEMGMT ---
RN CM DC PHONE CALL DC Date: 10/27/18 DC Disposition: Home LACE/STRATA: 05/24 Intro role of CM to patient via home phone. Pt states she does not have questions re: f/u, prescriptions or instructions. no care improvement suggestions given. Huy LAMAN RN ACM
== END 2018-10-27 15:15 | disposition home or self-care (01) | DRG 392 ==
LOC: ED 12:28 → MS3 16:43
PROVIDERS: Internal Medicine; Emergency Provider Emergency Medicine; Family Provider Internal Medicine; PCP Internal Medicine; Visit Provider Student in an Organized Health Care Education/Training Program
DX: K52.9 Noninfective gastroenteritis and colitis, unspecified (principal); E87.6 Hypokalemia; Z90.11 Acquired absence of right breast and nipple; Z79.01 Long term (current) use of anticoagulants; Z86.718 Personal history of other venous thrombosis and embolism; Z92.21 Personal history of antineoplastic chemotherapy; E78.5 Hyperlipidemia, unspecified; C50.911 Malignant neoplasm of unspecified site of right female breast; Z79.811 Long term (current) use of aromatase inhibitors
CPT/HCPCS: 36415; 74177; 80048; 80053; 81001; 83605; 83690; 85025; 87506; 97162; 97166; 99283; J7030; P9612; Q9967; A4216; J0744; J2405

== ENCOUNTER → 2018-12-09 | Outpatient (CLI) | payer MEDICARE, SELFPAY ==
[2018-12-09 11:48] VITALS: BMI 32.2
[2018-12-09 13:17] LABS: Amphetamine Urine VISTA NEGATIVE (<1000 ng/mL); Barbiturate Urine VISTA NEGATIVE (< 200 ng/mL); Benzodiazepine Urine VISTA NEGATIVE (< 200 ng/mL); Cocaine Urine VISTA NEGATIVE (< 300 ng/mL); Ecstacy Urine VISTA NEGATIVE (< 500 ng/mL); Methadone Urine VISTA NEGATIVE (< 300 ng/mL); PCP Urine VISTA NEGATIVE (< 25 ng/mL); THC Urine VISTA NEGATIVE (< 50 ng/mL); Vista UDS pH Range 5
== END | disposition home or self-care (01) ==
LOC: LAB 11:51
PROVIDERS: Family Provider Internal Medicine; PCP Internal Medicine; Referring Provider Anesthesiology Pain Medicine; Visit Provider Anesthesiology Pain Medicine
DX: F11.20 Opioid dependence, uncomplicated (principal)
CPT/HCPCS: 80307

== ENCOUNTER → 2019-03-12 | Outpatient (CLI) | payer BC, SELFPAY ==
[2018-12-23 13:39] VITALS: BMI 33.4
[2019-03-12 14:21] LABS: D-Dimer Quantitative (DVT/PE) 0.31 FEU/ug/m (0.27-0.49)
== END | disposition home or self-care (01) ==
LOC: LABSPEC 14:00
PROVIDERS: Family Provider Internal Medicine; PCP Internal Medicine; Referring Provider Internal Medicine; Visit Provider Internal Medicine
DX: R07.9 Chest pain, unspecified (principal)
CPT/HCPCS: 84484; 85379

== ENCOUNTER → 2019-03-25 | Outpatient (CLI) | payer MEDICARE, SELFPAY ==
[2018-12-23 13:39] VITALS: BMI 33.4
[2019-03-24 13:16] VITALS: BMI 34.0
--- NOTE | 2019-03-25 19:20 | STRESSREP ---
Stress Test Report Date: 03-25-19 Procedure: Pharmacologic stress nuclear imaging study Indications: Chest pain Consent: Per the patient Procedure: The patient underwent pharmacologic (Regadenoson) evaluation with a peak heart rate of 98 beats per minute (67 %predicted maximal heart rate) and a peak blood pressure of 160/70 mmHg. The baseline ECG demonstrated normal sinus rhythm. The peak pharmacologic ECG demonstrated no obvious ECG changes. There were no cardiac dysrhythmias pretest, during pharmacologic infusion, or recovery. There was no complaint of chest discomfort during pharmacologic infusion or recovery. The examination was discontinued secondary to completion of protocol. Impression: 1. Pharmacologic (Regadenoson) evaluation 2. Peak pharmacologic ECG with no obvious ECG changes. 3. There were no cardiac dysrhythmias pretest, during pharmacologic infusion, or recovery. 4. Nuclear images pending Myocardial perfusion imaging study: Technique: The patient was injected with 11.1 millicuries of technetium 99m Cardiolite and subsequently rest SPECT Cardiolite nuclear imaging was obtained in the horizontal long, vertical long, and short axis views. The patient underwent pharmacologic (Regadenoson) evaluation with a peak heart rate of 98 beats per minute (67 % percent predicted maximal heart rate) and a peak blood pressure of 160/70 mmHg. The patient was injected with 32.9 millicuries of technetium 99m Cardiolite and subsequently stress SPECT Cardiolite nuclear imaging was obtained in the horizontal long, vertical long, and short axis views. A gated Cardiolite study at peak stress was obtained. Interpretation: Rest and stress SPECT Cardiolite nuclear imaging status post realignment, normalization, and attenuation correction demonstrate relative uniform tracer uptake and myocardial perfusion appearing within normal limits. There is end systolic thickening and brightening. The gated Cardiolite study demonstrates myocardial thickening and inward wall motion. The reported LVEF is 83 %. Impression: 1. Rest and stress SPECT Cardiolite nuclear imaging demonstrate relative uniform tracer uptake and myocardial perfusion appearing within normal limits. 2. The gated Cardiolite study reports an LVEF of 83 %. This note was generated with [employer] software. It may contain incorrect words, spelling, and punctuation that were not noted in checking the note before signing.
== END | disposition home or self-care (01) ==
PROVIDERS: Family Provider Internal Medicine; PCP Internal Medicine; Referring Provider Internal Medicine; Visit Provider Internal Medicine
DX: R07.9 Chest pain, unspecified (principal); I25.10 Atherosclerotic heart disease of native coronary artery without angina pectoris; I47.1 Supraventricular tachycardia; R06.00 Dyspnea, unspecified; R94.31 Abnormal electrocardiogram [ECG] [EKG]
CPT/HCPCS: 78452; 93017; A9500; A4216; J2785

== ENCOUNTER 2019-04-22 12:00 | Emergency (ER) | payer MEDICARE, SELFPAY ==
[2019-03-24 13:16] VITALS: BMI 34.0
[2019-04-22] VITALS (10 sets, daily range): BP systolic 64–149; BP diastolic 40–75; PULSE 72–85; RESP 16–20; TEMP 36.4; O2SAT 88–99; BMI 33.3
[2019-04-22 12:06] LABS: Bedside Glucose 168 mg/dL (70-110)
--- NOTE | 2019-04-22 12:19 | CT_ITS ---
STUDY: CT ABDOMEN AND PELVIS WITH CONTRAST REASON FOR EXAM: Female, 73 years old. Abdominal pain with nausea and vomiting. Hypotension. Patient has a history of chest carcinoma. RADIATION DOSAGE (If Supplied By Facility): CTDIvol = ( 18.74 ) mGy, DLP = ( 1163.34 ) mGycm TECHNIQUE: Transaxial images were obtained from the dome of the diaphragm to the symphysis pubis without oral contrast. IV 100mL Isovue-300 100 was administered. Sagittal and coronal images were reconstructed. Individualized dose optimization techniques were used for this CT. COMPARISON: Comparison is made with prior study dated October 24, 2018. FINDINGS: Minimal increased linear markings at the lung bases suggestive of mild atelectasis and/or scarring. Coronary artery calcification. Normal liver. There are surgical clips in the gallbladder fossa consistent with a prior cholecystectomy. There are multiple benign calcified granulomata of the spleen. Normal pancreas. Normal bilateral adrenal glands. Normal right kidney. Normal left kidney. There is a large hiatal hernia composed mostly of the fundus of the stomach. Normal small intestine. There are multiple colonic diverticula consistent with diverticulosis. Large amount of fecal material in the rectosigmoid colon. The appendix is visualized and appears normal. There is diffuse atherosclerotic calcification of the abdominal aorta and its major visceral branches, without a demonstrated aneurysm. Normal inferior vena cava. Normal retroperitoneum. Normal urinary bladder. There is absence of the uterus consistent with a prior hysterectomy. Small umbilical hernia containing nondilated bowel loop. There are diffuse degenerative changes of the visualized lumbar spine. Prior laminectomy and fusion in the lumbar spine. CT/Abdomen/Pelvis WITH Contrast IMPRESSION: Large hiatal hernia. Large amount of fecal material is seen in the rectosigmoid colon. Electronically Signed: Yared Chan, at 13:52 EDT , Service support ,
--- NOTE | 2019-04-22 12:21 | ED.DCSUM_ITS ---
- ER Visit Summary Date of Service: 04/22/19 Chief Complaint: Abdominal pain and hypotension History of Present Illness: The patient is a 73 F who presents with abdominal pain and low blood pressure that again today. Patient was having a procedure done at Dr. Bocanegra's office when she started having abdominal cramping and became hypotensive. Patient states her pain as cramping is diffuse across her abdomen. Patient admits to some nausea and vomiting. Patient states she has been having some constipation recently. Patient denies any urinary complaints. Patient denies any chest pain or shortness of breath. Physical Examination: Vital signs are stable except for initial blood pressure of 64/40. Repeat blood pressure was improved to 106/61. Patient is afebrile. Patient is in no acute distress. Oral mucosa is pink and moist. Neck is supple. Trachea is midline. There is no JVD noted. Heart was regular rate and rhythm. Lungs are clear and equal bilaterally. Abdomen is soft. Bowel sounds are normal. There is mild diffuse tenderness. There is no rebound or guarding noted. Cranial nerves II through XII are intact. There are no focal deficits noted. Test Results: CBC was normal. Basic metabolic profile shows slightly elevated creatinine of 1.13 to BUN of 21. Urinalysis does not show any evidence of urinary tract infection. CT scan showed small umbilical hernia. There is a large amount of fecal material in the rectosigmoid colon. Emergency Department Course and Treatment: Patient was given IV fluids here. Patient was given morphine and Zofran here. Patient requested an enema here. Patient was given a soapsuds enema. Patient was given prescription for Zofran. Patient was also given a prescription for MiraLAX. Patient was instructed to follow-up with her primary care physician in 5 to 7 days. Patient understood and was agreeable with the plan. All questions were answered. Disposition: Discharge home Impression: 1. Transient hypotension 2. Constipation This note was generated with [employer] dictation software. It may contain incorrect words, spelling, and punctuation that were not noted in review of the chart prior to signing ED Disposition - Plan for ED Patient: Disposition: Home or Assisted Living Diagnosis: Transient hypotension, Constipation Instructions: HYPOTENSION, All Causes, CONSTIPATION (Adult) Prescriptions: Polyethylene Glycol 3350 [Miralax] 17 gm PO DAILY #5 packet Prescription Printed Ondansetron [Zofran Odt] 4 mg PO Q8H PRN PRN #10 tab PRN Reason: Nausea Prescription Printed Referrals: Jessica Aguero DO [Primary Care Provider] - 3-5 Days
[2019-04-22] MEDS: 0.9% Normal Saline 1,000 ML 1000 ML IV (12:37)
[2019-04-22] MEDS: Ondansetron 4 MG/2 ML Vial IV ×2 (12:37→16:48)
[2019-04-22 12:42] LABS: Absolute Lymphocyte Count 1.38 X10^3/uL (0.83-4.51); Absolute Neutrophil Count 8.5 X10^3/uL (2.0-7.7); Basophil# 0.03 X10^3/uL; Basophil% 0.3 % (0-1); Eosinophil# 0.09 X10^3/uL; Eosinophils% 0.9 % (0-5); Hematocrit 42.9 % (37-47); Hemoglobin 13.7 g/dL (12.0-15.0); Lymphocyte # 1.38 X10^3/ul (4.0); Lymphocyte % 13.1 % (19-41); Mean Corp Hgb Conc 31.9 g/dL (32-36); Mean Corpuscular Hgb 30.1 pg (27.0-32.0); Mean Corpuscular Volume 94.3 fL (81-99); Mean Platelet Vol. 8.8 fl (6.2-12.0); Monocyte# 0.52 X10^3/uL; Monocyte% 4.9 % (0-10); NRBC Flagged by Analyzer 0 % (0-5); Neutrophil # 8.45 X10^3/uL (2.7-7.7); Neutrophil % 80.1 % (47-70); Platelet Count 244 K/mm3 (150-450); RBC Distribution Width CV 13.1 % (11.6-14.6); RBC Distribution Width SD 45.3 fl (35.1-43.9); Red Blood Count 4.55 M/mm3 (4.2-5.4); White Blood Count 10.5 K/mm3 (4.4-11.0)
[2019-04-22 12:58] LABS: ALB/GLOB Ratio 1.1 RATIO (0.9-2.4); AST(SGOT) 11 U/L (15-37); Alanine Aminotransfer ALT/SGPT 17 U/L (13-56); Albumin, Serum 3.6 g/dL (3.2-5.0); Alkaline Phosphatase 48 U/L (45-117); Anion Gap 9 (5-15); BUN 21 mg/dL (7-18); BUN/Creat Ratio 18.6 RATIO (10-20); Calcium,Total 9.5 mg/dL (8.5-10.1); Chloride 108 mmol/L (98-107); Creatinine, Serum 1.13 mg/dL (0.55-1.02); EST Glomerular Filtration Rate 50 mL/min (>60); Est Glom Filt Rate - Afr Amer 60 mL/min (>60); Estimated Creatinine Clearance 38.71 ml/min; Globulin 3.4 g/dL (2.2-4.2); Glucose 171 mg/dL (74-106); Lipase 129 U/L (73-393); Potassium 3.5 mmol/L (3.5-5.1); Sodium Level 143 mmol/L (136-145)
[2019-04-22 14:28] LABS: Bacteria 0 SEEN /hpf (None Seen); Mucous, Urine 0 SEEN /hpf (<or=2+)
[2019-04-22 14:29] LABS: Color, Urine Yellow (Yellow); Glucose, Dipstick Normal (Normal); Ketone-Dipstick 5 mg/dl (Negative); Leukocyte Esterase-Dipstick 25 /ul (Negative); Nitrite-Dipstick Negative (Negative); Occult Blood-Urine 10 /ul (Negative); Protein-Dipstick 100 mg/dl (Negative); Specific Gravity, Urine 1.005 (1.002-1.030); Urine Bilirubin Dipstick Negative (Negative); Urine Clarity Clear (Clear); Urine Urobilinogen 1 mg/dl (Normal); Urine pH 6.5 (5.0 - 8.0)
[2019-04-22] MEDS: Morphine 4 MG/ML Syringe IV (14:36)
[2019-04-22 14:38] LABS: Red Blood Cells-Urine 0-5 SEEN /hpf (0-5); Squamous Epithelial Cells - UA 0-5 SEEN /hpf (5-10); White Blood Cells 0-5 SEEN /hpf (0-5)
--- NOTE | 2019-04-22 17:15 | ED.RN ---
PT HAD A 2ND LARGE BOWEL MOVEMENT SINCE RECEIVING ENEMA. REVIEWED D/C INSTRUCTIONS, FOLLOW UP CARE, PRESCRIPTIONS, AND S/S THAT WOULD WARRANT A RETURN TO THE ED WITH PT. PT VERBALIZED AN UNDERSTANDING AND DENIES FURTHER QUESTIONS FOR THIS RN. PT SKIN P/W/D, RESP EVEN AND UNLABORED, PT A&O X 3, NO DISTRESS NOTED. PT ASSISTED OUT OF ED IN WHEELCHAIR.
--- NOTE | 2019-04-22 17:38 | ED.RN ---
Update to Dr Bocanegra's office.
== END 2019-04-22 17:16 | disposition home or self-care (01) ==
PROVIDERS: Emergency Provider Emergency Medicine; Family Provider Internal Medicine; PCP Internal Medicine
DX: I95.9 Hypotension, unspecified (principal); K59.00 Constipation, unspecified; E66.9 Obesity, unspecified; M19.90 Unspecified osteoarthritis, unspecified site; I48.91 Unspecified atrial fibrillation; Z79.899 Other long term (current) drug therapy
CPT/HCPCS: 74177; 80053; 81001; 82962; 83690; 85025; 96361; 96374; 96375; 96376; 99285; J7030; Q9967; A4216; J2405

== ENCOUNTER → 2019-09-17 | Outpatient (CLI) | payer MEDICARE, SELFPAY ==
[2019-08-18 13:05] VITALS: BMI 33.6
--- NOTE | 2019-09-17 13:08 | BI_ITS ---
MAMMOGRAPHY - UNILATERAL SCREENING: LEFT BREAST REASON FOR EXAM: Female, 73 years old. Routine annual screening examination (unilateral). PERTINENT HISTORY: Right mastectomy for breast cancer TECHNIQUE: Digital unilateral breast jimena (3D mammographic acquisition) in the CC and MLO projections. 2-D mediolateral oblique (MLO) and craniocaudad (CC) views of both breasts were obtained. CAD: Full Field Digital Mammography with Computer Added Detection was performed. COMPARISON: Previous left breast mammogram obtained on 09/16/2018 FINDINGS: Breast Composition: Heterogeneously dense There are no dominant masses or suspicious calcifications. No other significant abnormalities are identified. BI/SCREEN MAMM (CAD) W/JIMENA UNI L IMPRESSION: Stable unilateral screening mammogram. Yearly follow-up mammogram recommended. (A) ASSESSMENT CATEGORY: BIRADS Category 1: Negative. A letter regarding these results will be sent to the patient by the facility within 30 days. Approximately 10% of breast cancers are not detected by mammography. A normal mammogram should not delay biopsy of a clinically suspicious abnormality. [id number] Electronically Signed: Dereje Sanderson, at 19:12 EST Tel , Service support ,
== END | disposition home or self-care (01) ==
LOC: OPBI 13:08
PROVIDERS: PCP Internal Medicine; Referring Provider Internal Medicine Hematology & Oncology; Visit Provider Internal Medicine Hematology & Oncology
DX: Z12.31 Encounter for screening mammogram for malignant neoplasm of breast (principal)
CPT/HCPCS: 77063; 77067

== ENCOUNTER → 2020-01-27 | Outpatient (CLI) | payer MEDICARE, SELFPAY ==
[2019-11-19 14:37] VITALS: BMI 33.3
[2020-01-27 14:23] LABS: Amphetamine Urine VISTA NEGATIVE (<1000 ng/mL); Barbiturate Urine VISTA NEGATIVE (< 200 ng/mL); Benzodiazepine Urine VISTA NEGATIVE (< 200 ng/mL); Cocaine Urine VISTA NEGATIVE (< 300 ng/mL); Ecstacy Urine VISTA NEGATIVE (< 500 ng/mL); Methadone Urine VISTA NEGATIVE (< 300 ng/mL); PCP Urine VISTA NEGATIVE (< 25 ng/mL); THC Urine VISTA NEGATIVE (< 50 ng/mL); Vista UDS pH Range 5
== END | disposition home or self-care (01) ==
LOC: LAB 13:40
PROVIDERS: PCP Internal Medicine; Referring Provider Anesthesiology Pain Medicine; Visit Provider Anesthesiology Pain Medicine
DX: F11.20 Opioid dependence, uncomplicated (principal)
CPT/HCPCS: 80307

== ENCOUNTER → 2020-05-17 | Outpatient (CLI) | payer MEDICARE, SELFPAY ==
[2020-02-25 14:06] VITALS: BMI 33.6
[2020-02-25 15:00] VITALS: BMI 33.6
--- NOTE | 2020-05-17 11:00 | BD_ITS ---
STUDY: DUAL ENERGY X-RAY ABSORPTIOMETRY / DXA REASON FOR EXAM: Female, 74 years old. 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 COMPARISON: Comparison is made with prior study dated 04/15/2018. FINDINGS: Lumbar Spine (L1-L4): g/cm2 (0.965) / T-score (-1.7) / Z-score (0.1) Findings are suggestive of osteopenia with a moderate fracture risk. Left Femur Total: g/cm2 (0.780) / T-score (-1.8) / Z-score (0.0) Left Femoral Neck: g/cm2 (0.713) / T-score (-2.3) / Z-score (-0.4) Right Femur Total: g/cm2 (0.718) / T-score (-2.3) / Z-score (-0.5) Right Femoral Neck: g/cm2 (0.69 to) / T-score (-2.5) / Z-score (-0.5) The T-Scores on the most recent prior examination were: Lumbar Spine (L1-L4): There has been improvement of bone density since the previous examination. Left Femur Total: which represents a worsening of 1.6%. Right Femur Total: which represents an improvement of 10.5%. BD/Dexa Bone Density Study IMPRESSION: The patient is considered osteoporotic as outlined below according to World Wilber Organization (WHO) criteria with a high fracture risk. There has been improvement of bone density since the previous examination. Reference Information: The T-score is the number of standard deviations above or below the standard which is normal for young adults at their peak bone mineral density. The World Health Organization (WHO) interprets the T-scores as follows: Above -1 Normal bone density Between -1 and -2.5 Osteopenia Equal to / or below -2.5 Osteoporosis As a practical clinical guideline, osteopenia may be graded as follows: Mild -1 through -1.5 Moderate -1.6 through -2.0 Severe -2.1 through -2.4 The Z-score is the number of standard deviations above or below age-matched controls. A Z-score of less than -1.5 would be considered abnormal. References: 1. NIH Osteoporosis and Related Bone Diseases www osteo.org 2. International Society for Clinical Densitometry www iscd.org 3. National Osteoporosis Foundation www nof.org Electronically Signed: Yared Chan, at 13:52 EDT , Service support ,
== END | disposition home or self-care (01) ==
PROVIDERS: PCP Internal Medicine; Referring Provider Internal Medicine Hematology & Oncology; Visit Provider Internal Medicine Hematology & Oncology
DX: M81.0 Age-related osteoporosis without current pathological fracture (principal)
CPT/HCPCS: 77080

== ENCOUNTER → 2020-05-26 09:42 | Outpatient (CLI) | payer MEDICARE, SELFPAY ==
[2020-05-19 13:52] VITALS: BMI 35.4
--- NOTE | 2020-05-26 09:43 | US_ITS ---
STUDY: ULTRASOUND BREAST - LEFT REASON FOR EXAM: Female, 74 years old. Palpable lump left breast. TECHNIQUE: Axial and longitudinal images of the LEFT breast were performed with a high resolution ultrasound transducer. # OF IMAGES: 8 COMPARISON: Comparison is made with prior mammogram done earlier in the day. FINDINGS: LEFT Breast: There is a 2 mm x 2 mm x 3 mm cyst at the 2 o''clock position of the breast at 2 cm from nipple. US/Breast Limited Unilateral IMPRESSION: 2 mm x 2 mm x 3 mm cyst at the 2 o''clock position of the breast at 2 cm from nipple. ASSESSMENT CATEGORY: BIRADS Category 2: Benign. A letter regarding these results will be sent to the patient by the facility within 30 days. Electronically Signed: Yared Chan, at 14:35 EST , Service support ,
--- NOTE | 2020-05-26 09:43 | BI_ITS ---
MAMMOGRAPHY - UNILATERAL DIAGNOSTIC: LEFT BREAST REASON FOR EXAM: Female, 74 years old. Pea-sized lump at the 2 o''clock position of the left breast. PERTINENT HISTORY: Personal history of breast cancer. Sister with breast cancer. Aunt with breast cancer. Prior right mastectomy. TECHNIQUE: Digital unilateral breast darling (3D mammographic acquisition) in the CC and MLO projections. 2-D mediolateral oblique (MLO) and craniocaudad (CC) views of both breasts were obtained. CAD: Full Field Digital Mammography with Computer Added Detection was performed. COMPARISON: Comparison is made with prior study dated 09/17/2019 and 09/16/2018. FINDINGS: Breast Composition: There are scattered areas of fibroglandular density. There are no dominant masses or suspicious calcifications. Stable scattered calcifications in the left breast. No other significant abnormalities are identified. There has been no significant change since the prior study. BI/DIAG MAMM W/CAD, UNILAT IMPRESSION: Stable unilateral diagnostic mammogram. One year follow-up mammogram recommended. (A) ASSESSMENT CATEGORY: BIRADS Category 2: Benign. A letter regarding these results will be sent to the patient by the facility within 30 days. Approximately 10% of breast cancers are not detected by mammography. A normal mammogram should not delay biopsy of a clinically suspicious abnormality. Electronically Signed: Yared Chan, at 10:56 EST , Service support ,
== END ==
PROVIDERS: PCP Internal Medicine; Referring Provider Internal Medicine Hematology & Oncology; Visit Provider Internal Medicine Hematology & Oncology
DX: N60.02 Solitary cyst of left breast (principal)
CPT/HCPCS: 76642; 77061; 77065; G0279

== ENCOUNTER → 2020-08-02 | Outpatient (CLI) | payer MEDICARE, MEDICAID, SELFPAY ==
[2020-06-01 09:46] VITALS: BMI 35.4
== END | disposition home or self-care (01) ==
PROVIDERS: PCP Internal Medicine; Visit Provider Internal Medicine
DX: R05 Cough (principal)
CPT/HCPCS: 87633

== ENCOUNTER 2020-09-19 12:00 | Outpatient (RCR) | payer MEDICARE, SELFPAY ==
[2020-09-29] MEDS: COVID-19 VACC, MRNA(PFIZER)/PF 30 MCG/0.3 ML SYRINGE IM (11:47)
[2020-11-03] MEDS: COVID-19 VACC, MRNA(PFIZER)/PF 30 MCG/0.3 ML SYRINGE IM (10:12)
== END 2020-09-19 23:59 ==
LOC: IMMUN 12:00
PROVIDERS: PCP Internal Medicine; Visit Provider Family Medicine
DX: Z23 Encounter for immunization (principal)
CPT/HCPCS: 0001A; 0002A

== ENCOUNTER → 2020-09-19 16:19 | Outpatient (CLI) | payer MEDICARE, MEDICAID, SELFPAY ==
[2020-09-19 17:33] LABS: Erythrocyte Sedimentation Rate 21 mm/hr (0-30)
[2020-09-19 17:34] LABS: Absolute Lymphocyte Count 1.11 X10^3/uL (0.83-4.51); Absolute Neutrophil Count 7.5 X10^3/uL (2.0-7.7); Basophil# 0.03 X10^3/uL; Basophil% 0.3 % (0-1); Eosinophil# 0.06 X10^3/uL; Eosinophils% 0.6 % (0-5); Hematocrit 40.4 % (37-47); Hemoglobin 13.4 g/dL (12.0-15.0); Lymphocyte # 1.11 X10^3/ul (4.0); Lymphocyte % 11.4 % (19-41); Mean Corp Hgb Conc 33.2 g/dL (32-36); Mean Corpuscular Hgb 31.6 pg (27.0-32.0); Mean Corpuscular Volume 95.3 fL (81-99); Mean Platelet Vol. 9.5 fl (6.2-12.0); Monocyte# 0.96 X10^3/uL; Monocyte% 9.9 % (0-10); NRBC Flagged by Analyzer 0 % (0-5); Neutrophil # 7.53 X10^3/uL (2.7-7.7); Neutrophil % 77.3 % (47-70); Platelet Count 256 K/mm3 (150-450); RBC Distribution Width CV 12.5 % (11.6-14.6); RBC Distribution Width SD 43.1 fl (35.1-43.9); Red Blood Count 4.24 M/mm3 (4.2-5.4); White Blood Count 9.7 K/mm3 (4.4-11.0)
[2020-09-19 19:03] LABS: CRP 6.01 mg/L (0.0-3.0)
== END ==
PROVIDERS: PCP Internal Medicine
DX: T84.53XA Infection and inflammatory reaction due to internal right knee prosthesis, initial encounter (principal); M25.561 Pain in right knee; Z96.651 Presence of right artificial knee joint
CPT/HCPCS: 36415; 85025; 85652; 86140

== ENCOUNTER 2020-11-25 14:57 | Inpatient (IN) | payer MEDICARE, MEDICAID, SELFPAY ==
[2020-11-16 15:52] VITALS: BMI 32.3
[2020-11-25] VITALS (24 sets, daily range): BP systolic 95–133; BP diastolic 52–111; PULSE 89–160; RESP 15–35; TEMP 36.6–37.3; O2SAT 95–100; BMI 32.1
--- NOTE | 2020-11-25 15:32 | EKG12_ITS ---
Test Reason : TACHYCARDIA Blood Pressure : / mmHG Vent. Rate : 165 BPM Atrial Rate : 178 BPM P-R Int : 000 ms QRS Dur : 072 ms QT Int : 256 ms P-R-T Axes : 000 014 022 degrees QTc Int : 424 ms Atrial fibrillation with rapid ventricular response Nonspecific ST and T wave abnormality Abnormal ECG Confirmed by MISTY GONZALEZ, JILL ([id number]), photographic editor ALEXEY BILLINGS ([id number]) on 11/28/2020 12:58:23 PM Referred By: Confirmed By:JILL JAY MD
[2020-11-25] MEDS: dilTIAZem 25 MG/5 ML Vial 20 MG IV BOLUS (15:37)
[2020-11-25 15:43] LABS: Absolute Lymphocyte Count 0.83 X10^3/uL (0.83-4.51); Basophil# 0.02 X10^3/uL; Basophil% 0.3 % (0-1); Eosinophil# 0.09 X10^3/uL; Eosinophils% 1.2 % (0-5); Hemoglobin 11.7 g/dL (12.0-15.0); Lymphocyte # 0.83 X10^3/ul (0.83-4.51); Lymphocyte % 10.9 % (19-41); Mean Corp Hgb Conc 31.6 g/dL (32-36); Mean Corpuscular Volume 98.1 fL (81-99); Mean Platelet Vol. 9.4 fl (6.2-12.0); Monocyte# 0.67 X10^3/uL; Monocyte% 8.8 % (0-10); NRBC Flagged by Analyzer 0 % (0-5); Neutrophil # 5.98 X10^3/uL (2.7-7.7); Neutrophil % 78.5 % (47-70); Platelet Count 227 K/mm3 (150-450); RBC Distribution Width CV 13.6 % (11.6-14.6); Red Blood Count 3.77 M/mm3 (4.2-5.4); White Blood Count 7.6 K/mm3 (4.4-11.0)
--- NOTE | 2020-11-25 15:47 | RAD_ITS ---
HISTORY: chest pain EXAMINATION/TECHNIQUE: XR Chest 1 View: Portable upright AP chest x-ray COMPARISON: Chest x-ray 06/27/16, chest CT 8 02/25/18 FINDINGS: LINES/DEVICES: None. LUNGS: Hazy airspace opacity right upper lung field. No consolidations. Minimal blunting of the right costophrenic angle. No vascular congestion. MEDIASTINUM AND CARDIOVASCULAR STRUCTURES: Stable cardiomegaly. Large retrocardiac hiatal hernia again identified. BONES AND SOFT TISSUES: No acute bony abnormalities. RAD/Chest 1 View (Portable) IMPRESSION: Cardiomegaly. Hazy right upper lung field airspace disease suspicious for pneumonia. Recommend follow-up to resolution. Possible small right pleural effusion. at 1602 Reported and signed by: Josué Mckinney MD Electronically Signed: Josué Mckinney MD at 16:00 EDT Tel , Service support ,
[2020-11-25 15:58] LABS: ALB/GLOB Ratio 0.9 RATIO (0.9-2.4); AST(SGOT) 11 U/L (15-37); Alanine Aminotransfer ALT/SGPT 12 U/L (13-56); Alkaline Phosphatase 45 U/L (45-117); Anion Gap 7 (5-15); BUN 17 mg/dL (7-18); Calcium,Total 8.1 mg/dL (8.5-10.1); Chloride 111 mmol/L (98-107); Creatinine, Serum 0.63 mg/dL (0.55-1.02); EST Glomerular Filtration Rate 98 mL/min (>60); Est Glom Filt Rate - Afr Amer 118 mL/min (>60); Estimated Creatinine Clearance 43.07 ml/min; Globulin 3.3 g/dL (2.2-4.2); Glucose 118 mg/dL (74-106); Magnesium 2.1 mg/dL (1.6-2.6); Potassium 3.9 mmol/L (3.5-5.1); Protein, Total 6.3 g/dL (6.4-8.2); Sodium Level 143 mmol/L (136-145)
--- NOTE | 2020-11-25 16:11 | EDS_ITS ---
HPI History of Present Illness Chief Complaint: Chest Pain Informant: patient Narrative Narrative: 74-year-old female with history of paroxysmal A. fib presents to the emergency department sudden onset of chest pain weakness and shortness of breath. Symptoms came on abruptly today. She states she has not had any bout of A. fib for the past several years. When she last had it it felt very similar to this. She does note that her in the fall of last year and she has been very depressed about it. She denies any suicidality. She notes that she has not had much of an appetite but it got worse during this past week. She states that the past couple days she has had greater than 10 formed bowel movements per day which concerned her because she does not eat very much to have that much bowel movements. She is on Eliquis and does note that she did miss a dose recently. [facility] Medical History Atherosclerotic heart disease of [place] coronary artery without angina pectoris Atrial fibrillation CAD (coronary artery disease) COPD (chronic obstructive pulmonary disease) Essential hypertension GERD (gastroesophageal reflux disease) Hx of deep vein thrombophlebitis of lower extremity Hyperlipidemia Insomnia Obesity Obstructive sleep apnea Paroxysmal atrial fibrillation Paroxysmal atrial tachycardia Personal history of pulmonary embolism port placement PORT REMOVAL Pure hypercholesterolemia PVD (peripheral vascular disease) Rectal prolapse Home Medications albuterol sulfate 2 puff INHALATION Q4H PRN PRN 06/16/13 [History Last Taken 10/01/17 08:00] albuterol sulfate 2.5 mg INHALATION Q4H PRN PRN 06/16/13 [History Last Taken Unknown] omeprazole 20 mg PO DAILY 06/16/13 [History Last Taken 10/22/18] pravastatin 20 mg PO QHS 06/16/13 [History Last Taken Unknown] calcium citrate-vitamin D3 2 tab PO DAILY 10/24/18 [History Last Taken 10/22/18] zolpidem 6.25 mg PO QHS PRN PRN 03/24/19 [History Last Taken Unknown] furosemide 20 mg tablet 20 mg PO DAILY PRN 06/04/19 [History Last Taken Unknown] hydrocodone-acetaminophen 5-325mg 5mg-325mg 1 tab PO TID 09/28/19 [History Last Taken Unknown] anastrozole 1 mg PO DAILY 90 Days #90 tab 12/31/19 [Rx Last Taken Unknown] diltiazem HCl 180 mg capsule,extended release 24 hr 180 mg PO DAILY #90 cap 03/25/20 [Rx Last Taken Unknown] apixaban 5 mg tablet 5 mg PO BID #180 tab 07/18/20 [Rx Last Taken Unknown] lisinopril 10 mg-hydrochlorothiazide 12.5 mg tablet 1 tab PO DAILY 08/22/20 [History Last Taken Unknown] Allergy/AdvReac Type Severity Reaction Status Date / Time niacin Allergy Intermediate I DON'T Verified 11/25/20 15:00 REMEMBER, I CAN'T TAKE IT bee stings Allergy Swelling Uncoded 11/16/20 14:44 Family History Brother Diabetes Heart disease Sister Breast cancer Mother Cancer brain and bone mets Aunt Breast cancer Grandmother Cancer Surgical History History of incisional hernia repair Hx of mastectomy S/P appendectomy S/P carpal tunnel release S/P cataract extraction S/P hysterectomy S/P lumbar discectomy S/P partial thyroidectomy S/P revision of total knee S/P right breast biopsy S/P total knee replacement Social History Smoking Status: Never smoker alcohol intake: never caffeine: No ROS ROS ED Constitutional Constitutional ED: Reports other Details: Fatigue ; Denies chills or weight loss Eyes Eyes: Denies change in vision or diplopia ENT ENT ED: Denies ear pain, rhinorrhea or sore throat Cardiovascular Cardiovascular: Reports chest pain, palpitations and racing heartbeat; Denies orthopnea Respiratory/Chest Respiratory/Chest: Reports dyspnea; Denies cough or orthopnea Gastrointestinal Gastrointestinal: Reports nausea and other Details: Anorexia ; Denies abdominal pain, diarrhea or vomiting Genitourinary Genitourinary ED: Denies dysuria, hematuria or urinary frequency Musculoskeletal Musculoskeletal: Denies arthralgias or myalgias Integumentary Denies abscess or rash Neurologic Neurologic: Denies headache(s) or weakness Psychiatric Psychiatric: Reports depression; Denies anxiety, suicidal ideation or suicidal thoughts Endocrine Endocrinology: Denies polydipsia, polyphagia or polyuria Allergic/Immunologic Allergic/Immunologic ED: Denies mouth swelling, tongue swelling or urticaria EXAM Physical Exam Const Vital Signs: 11/25/20 15:01 11/25/20 15:08 11/25/20 15:28 Temperature 99.1 F Temperature Source Temporal Pulse Rate 160 H 154 H 158 H Respiratory Rate 35 H 18 Blood Pressure 122/102 H 122/102 H Blood Pressure Mean 108 108 Pulse Ox 95 98 Oxygen Delivery Method Room Air Nasal Cannula Oxygen Flow Rate (L/min) 2 11/25/20 15:43 11/25/20 15:45 11/25/20 15:54 Temperature Temperature Source Pulse Rate 130 H 151 H Respiratory Rate 18 Blood Pressure 115/67 121/79 H Blood Pressure Mean 83 93 Pulse Ox Oxygen Delivery Method Oxygen Flow Rate (L/min) Positive well nourished and well developed General Appearance ED: well developed HEENT Reports normocephalic, head/scalp atraumatic and moist mucous membranes Eyes PERRL and EOMs intact bilaterally Neck no lymphadenopathy, supple and no JVD Resp normal respiratory effort and clear to auscultation bilaterally Cardio no murmurs Rate: other Other Details: Irregularly irregular tachycardic rhythm GI normal to inspection, nondistended, normoactive bowel sounds and non-tender Palpation: soft Back/Spine no CVA tenderness and normal ROM Extremity normal to inspection General Extremety ED: Negative for edema General Extremity: Negative for edema Neuro oriented x3 and CN's II-XII intact bilaterally Sensorium / Orientation: alert Motor Exam: strength 5/5 throughout Psych Psych Narrative: Patient denies suicidal or homicidal ideation Mood & Affect: depressed and tearful Skin no rashes or lesions noted and no wounds MDM MDM Lab Data Attestation: I reviewed the patient's lab results. Labs: Laboratory Results - last 24 hr 11/25/20 11/25/20 15:15 15:15 WBC 7.6 RBC 3.77 L Hgb 11.7 L Hct 37.0 MCV 98.1 MCH 31.0 MCHC 31.6 L RDW Std Deviation 49.0 H RDW Coeff of Jenna 13.6 Plt Count 227 MPV 9.4 Immature Gran % (Auto) 0.300 Neut % (Auto) 78.5 H Lymph % (Auto) 10.9 L Dukes % (Auto) 8.8 Eos % (Auto) 1.2 Baso % (Auto) 0.3 Absolute Neuts (auto) 6.0 Absolute Lymphs (auto) 0.83 Nucleated RBC % 0 Sodium 143 Potassium 3.9 Chloride 111 H Carbon Dioxide 25.0 Anion Gap 7 BUN 17 Creatinine 0.63 Estim Creat Clear Calc 43.07 Est GFR (MDRD) Af Amer 118 Est GFR (MDRD) Non-Af 98 BUN/Creatinine Ratio 27.0 H Glucose 118 H Calcium 8.1 L Magnesium 2.1 Total Bilirubin 0.60 AST 11 L ALT 12 L Alkaline Phosphatase 45 Troponin I < 0.015 Total Protein 6.3 L Albumin 3.0 L Globulin 3.3 Albumin/Globulin Ratio 0.9 Radiography Diagnostic Testing: Radiology Impression Chest X-Ray 11/25/20 15:47 IMPRESSION: Cardiomegaly. Hazy right upper lung field airspace disease suspicious for pneumonia. Recommend follow-up to resolution. Possible small right pleural effusion. at 1602 Reported and signed by: Josué Mckinney MD Electronically Signed: Josué Mckinney MD at 16:00 EDT Tel , Service support , EKG Initial EKG: Attestation: I personally reviewed and interpreted this EKG as follows: Comments: EKG demonstrates atrial fibrillation with rapid ventricular response at a rate of 165. No concerning features of ACS noted. Discharge Plan Triage Chief Complaint: Chest Pain ED Provider: Khalif Nugent Dx/Rx/DC Orders Clinical Impression: Atrial fibrillation with RVR, Depression Prescriptions: No Action hydrocodone-acetaminophen [[place]] 5-325 mg tablet 1 tab PO TID RF: 0 albuterol sulfate 2.5 MG/3 ML solution for nebulization 2.5 mg INHALATION Q4H PRN PRN (Reason: Asthma) RF: 0 pravastatin 40 MG tablet 20 mg PO QHS RF: 0 omeprazole 20 MG capsule 20 mg PO DAILY RF: 0 albuterol sulfate 1 PUFF inhaler 2 puff INHALATION Q4H PRN PRN (Reason: Asthma) RF: 0 zolpidem 12.5 MG tablet,ext release multiphase 6.25 mg PO QHS PRN PRN (Reason: Insomnia) RF: 0 anastrozole 1 MG tablet 1 mg PO DAILY 90 Days Qty: 90 RF: 3 calcium citrate-vitamin D3 1 EACH tablet 2 tab PO DAILY RF: 0 furosemide 20 mg tablet 20 mg PO DAILY PRN (Reason: water pill) RF: 0 diltiazem HCl 180 mg capsule,extended release 24hr 180 mg PO DAILY Qty: 90 RF: 3 Eliquis 5 mg tablet 5 mg PO BID Qty: 180 RF: 3 lisinopril-hydrochlorothiazide 10-12.5 mg tablet 1 tab PO DAILY RF: 0 Primary Care Provider: Jessica Aguero Referrals: Jessica Aguero DO [Primary Care Provider] - Disposition Disposition: Acute Care Hospital [facility]
[2020-11-25] MEDS: dilTIAZem 25 MG/5 ML Vial IV BOLUS (17:08)
--- NOTE | 2020-11-25 18:30 | CM.ED ---
SOCIAL WORK Referral Source: Dr. Nugent Reason for Referral: Resources Discussed case with Dr. Nugent, per triage note patient with suicidal ideation. Per Dr. Nugent, patient not suicidal. Patient with recent loss of . Met with patient in room. Introduced role and reason for referral. Patient discussed 's passing and states was connected with Hospice and they provided her with resources. Patient states since husbands passing in April 2020 has sold her house and is unsure where she put resources. Patient reports believes she would benefit in talking with someone. Patient denies any suicidal ideation, plan or intent. Patient states I am Buddhist and I would go to hell and I don't want that. Much emotional support and active listening provided throughout. Patient states currently lives alone in a mobile home that she recently bought and moved into. Patient states support from family and [employer] services. Patient to be provided with list of mental health agencies and informed SW able to assist in setting up appointment if needed. Plan: Admit Kristal Morales, MANAGER BAR, FISH HATCHERY SUPERINTENDENT
--- NOTE | 2020-11-25 19:46 | HP.PCM.HOS_ITS ---
HPI - General General Date of Admission: 11/25/20 HPI Narrative ALLISON MAHER, is a 74 F who presents to the hospital with shortness of breath and palpitations. She states that she has been feeling she has been getting smothered for about the last week. Every time she gets up she feels short of breath and that she feels like her heart skipping beats. She states that has been having lot of stress at home, she moved into a new trailer and she paid somebody to put in back stairs as well as the front stairs and a ramp, however he has not been back for about a month. She states that she takes all of her meds appropriately at home but she did not want to come in today her grandson made her come in. On arrival she was tachycardic into the 130s 140s, her EKG was nonischemic her troponin was normal white count was unremarkable and her creatinine was baseline. [facility] Medical History Atherosclerotic heart disease of [place] coronary artery without angina pectoris Atrial fibrillation CAD (coronary artery disease) COPD (chronic obstructive pulmonary disease) Essential hypertension GERD (gastroesophageal reflux disease) Hx of deep vein thrombophlebitis of lower extremity Hyperlipidemia Insomnia Obesity Obstructive sleep apnea Paroxysmal atrial fibrillation Paroxysmal atrial tachycardia Personal history of pulmonary embolism port placement PORT REMOVAL Pure hypercholesterolemia PVD (peripheral vascular disease) Rectal prolapse Home Medications albuterol sulfate 2 puff INHALATION Q4H PRN PRN 06/16/13 [History Last Taken 10/01/17 08:00] omeprazole 20 mg PO DAILY 06/16/13 [History Last Taken 11/25/20] pravastatin 20 mg PO QHS 06/16/13 [History Last Taken 11/24/20] calcium citrate-vitamin D3 2 tab PO DAILY 10/24/18 [History Last Taken 11/25/20] zolpidem 6.25 mg PO QHS PRN PRN 03/24/19 [History Last Taken 11/24/20] furosemide 20 mg tablet 20 mg PO DAILY PRN 06/04/19 [History Last Taken Unknown] anastrozole 1 mg PO DAILY 90 Days #90 tab 12/31/19 [Rx Last Taken 11/25/20] diltiazem HCl 180 mg capsule,extended release 24 hr 180 mg PO DAILY #90 cap 03/25/20 [Rx Last Taken 11/25/20] apixaban 5 mg tablet 5 mg PO BID #180 tab 07/18/20 [Rx Last Taken 11/25/20] lisinopril 10 mg-hydrochlorothiazide 12.5 mg tablet 1 tab PO DAILY 08/22/20 [History Last Taken 11/25/20] acetaminophen [Tylenol Arthritis] 1,300 mg PO DAILY PRN 11/25/20 [History Last Taken 11/25/20] denosumab [Prolia] 60 mg SUBCUT .[id number] 11/25/20 [History Last Taken 11/16/20] hydrocodone-acetaminophen 1 tab PO TID 11/25/20 [History Last Taken 11/24/20] Allergy/AdvReac Type Severity Reaction Status Date / Time niacin Allergy Intermediate I DON'T Verified 11/25/20 15:00 REMEMBER, I CAN'T TAKE IT bee stings Allergy Swelling Uncoded 11/16/20 14:44 Family History Brother Diabetes Heart disease Sister Breast cancer Mother Cancer brain and bone mets Aunt Breast cancer Grandmother Cancer Surgical History History of incisional hernia repair Hx of mastectomy S/P appendectomy S/P carpal tunnel release S/P cataract extraction S/P hysterectomy S/P lumbar discectomy S/P partial thyroidectomy S/P revision of total knee S/P right breast biopsy S/P total knee replacement Social History Smoking Status: Never smoker alcohol intake: never caffeine: No ROS Constitutional Constitutional: Reports fatigue; Denies chills or fever(s) Eyes Eyes: Denies blurry vision ENT HEENT: Denies dysphagia or headache(s) Cardiovascular Cardiovascular: Reports chest pain, dyspnea on exertion and palpitations; Denies syncope Respiratory/Chest Respiratory/Chest: Denies cough, productive cough or wheezing Gastrointestinal Gastrointestinal: Denies abdominal pain, diarrhea, nausea or vomiting Genitourinary Genitourinary: Denies burning urination or urinary urgency Musculoskeletal Musculoskeletal: Denies arthralgias Neurologic Neurologic: Denies focal weakness Psychiatric Psychiatric: Reports depression; Denies anxiety Vital Signs Vital Signs Vital Signs: 11/25/20 15:01 11/25/20 15:08 11/25/20 15:28 Temperature 99.1 F Temperature Source Temporal Pulse Rate 160 H 154 H 158 H Respiratory Rate 35 H 18 Blood Pressure 122/102 H 122/102 H Blood Pressure Mean 108 108 Blood Pressure Source Blood Pressure Position Blood Pressure Location Pulse Ox 95 98 Oxygen Delivery Method Room Air Nasal Cannula Oxygen Flow Rate (L/min) 2 11/25/20 15:43 11/25/20 15:45 11/25/20 15:54 Temperature Temperature Source Pulse Rate 130 H 151 H Respiratory Rate 18 Blood Pressure 115/67 121/79 H Blood Pressure Mean 83 93 Blood Pressure Source Blood Pressure Position Blood Pressure Location Pulse Ox Oxygen Delivery Method Oxygen Flow Rate (L/min) 11/25/20 16:00 11/25/20 16:28 11/25/20 17:00 Temperature Temperature Source Pulse Rate 150 H 150 H 149 H Respiratory Rate 18 19 H 15 Blood Pressure 123/78 H 123/78 H 114/102 H Blood Pressure Mean 93 93 106 Blood Pressure Source Monitor Blood Pressure Position Semi-Fowlers Blood Pressure Location Left Arm Pulse Ox 98 99 Oxygen Delivery Method Nasal Cannula Nasal Cannula Oxygen Flow Rate (L/min) 2 2 11/25/20 17:12 11/25/20 17:28 11/25/20 18:00 Temperature Temperature Source Pulse Rate 89 98 100 Respiratory Rate 15 Blood Pressure 123/102 H Blood Pressure Mean 109 Blood Pressure Source Blood Pressure Position Blood Pressure Location Pulse Ox 99 Oxygen Delivery Method Nasal Cannula Oxygen Flow Rate (L/min) 2 11/25/20 18:35 Temperature 98 F Temperature Source Temporal Pulse Rate 99 Respiratory Rate 15 Blood Pressure 123/102 H Blood Pressure Mean 109 Blood Pressure Source Blood Pressure Position Blood Pressure Location Pulse Ox 99 Oxygen Delivery Method Room Air Oxygen Flow Rate (L/min) Physical Exam Const alert, oriented x3 and no apparent distress General Appearance: cooperative HEENT normocephalic and moist oral mucous membranes Eyes PERRL, EOMs intact bilaterally and conjunctivae normal Neck no lymphadenopathy, supple and no JVD Resp normal respiratory effort and clear to auscultation bilaterally Auscultation: Negative for crackles, rales, rhonchi or wheezes Cardio S1 normal heart sound, S2 normal heart sound and no murmurs Rate: tachycardic Rhythm: abnormal rhythm irregularly irregular GI soft to palpation, non-tender and non-distended; Negative for hepatosplenomegaly Extremity no clubbing, cyanosis or edema Skin no rashes or lesions noted Neuro moves all extremities and no focal motor deficits Psych affect normal Lab / Micro Data Result Diagrams: 11/25/20 15:15 11/25/20 15:15 Labs: Laboratory Results - last 24 hr 11/25/20 11/25/20 15:15 15:15 WBC 7.6 RBC 3.77 L Hgb 11.7 L Hct 37.0 MCV 98.1 MCH 31.0 MCHC 31.6 L RDW Std Deviation 49.0 H RDW Coeff of Jenna 13.6 Plt Count 227 MPV 9.4 Immature Gran % (Auto) 0.300 Neut % (Auto) 78.5 H Lymph % (Auto) 10.9 L Carroll % (Auto) 8.8 Eos % (Auto) 1.2 Baso % (Auto) 0.3 Absolute Neuts (auto) 6.0 Absolute Lymphs (auto) 0.83 Nucleated RBC % 0 Sodium 143 Potassium 3.9 Chloride 111 H Carbon Dioxide 25.0 Anion Gap 7 BUN 17 Creatinine 0.63 Estim Creat Clear Calc 43.07 Est GFR (MDRD) Af Amer 118 Est GFR (MDRD) Non-Af 98 BUN/Creatinine Ratio 27.0 H Glucose 118 H Calcium 8.1 L Magnesium 2.1 Total Bilirubin 0.60 AST 11 L ALT 12 L Alkaline Phosphatase 45 Troponin I < 0.015 Total Protein 6.3 L Albumin 3.0 L Globulin 3.3 Albumin/Globulin Ratio 0.9 Radiology Impression Chest X-Ray 11/25/20 15:47 IMPRESSION: Cardiomegaly. Hazy right upper lung field airspace disease suspicious for pneumonia. Recommend follow-up to resolution. Possible small right pleural effusion. at 1602 Reported and signed by: Josué Mckinney MD Electronically Signed: Josué Mckinney MD at 16:00 EDT Tel , Service support , Assessment & Plan Assessment/Plan (1) Atrial fibrillation with RVR: PLAN: 1. A. fib with RVR/HTN/HLD -We will obtain serial troponin secondary to her chest pain -Continue with Eliquis as well as Cardizem drip -When she becomes normal sinus can resume her oral medications -Continue with her other home blood pressure medications and continue to monitor her blood pressure closely -Continue with pravastatin -She did have a stress test on 03/25/2019 which was normal, and she had an echo in 08/26/2018 with an EF of 65% and stage II diastolic dysfunction -Repeat echo in the morning 2. History of breast cancer -Currently on anastrozole status post right mastectomy -Continue with her home meds 3. COPD -Not in exacerbation 4. GERD -Stable -Continue PPI DVT: Eliquis Visit Charges Inpatient E&M: 48870 Init Hosp L3
--- NOTE | 2020-11-25 20:00 | ECHOD_ITS ---
Version 2 Reason For Study: Afib, Aflutter Procedure This was a 2D Doppler, Color Flow transthoracic echocardiogram. Myocardial strain analysis was performed in this exam to aid in the assessment of cardiac function. Exam performed portable in patient room. Left Ventricle Normal LV size. Sigmoid septum. Left ventricular systolic function is normal. The estimated ejection fraction is 60 %. Stage 1 diastolic dysfunction. No regional wall motion abnormalities noted. Right Ventricle Normal RV size. Normal systolic function. Atria Normal left atrium. Normal right atrium. Mitral Valve Normal mitral valve. There is mild mitral annular calcification. Mild (1+) mitral valve insufficiency. Tricuspid Valve Normal tricuspid valve. Mild tricuspid valve insufficiency. Pulmonary artery systolic pressure is 30 mmHg. Aortic Valve Normal aortic valve. Trisinus/trileaflet aortic valve. Mild (1+) aortic valve insufficiency. Pulmonic Valve Normal pulmonic valve. Great Vessels Normal aortic root. The pulmonary artery is normal size. Normal inferior vena cava. Pericardium/Pleural No pericardial effusion. MMode/2D Measurements & Calculations LVIDd: 3.7 cm IVSd: 1.1 cm Ao root diam: 3.4 cm LVIDs: 2.1 cm LVPWd: 1.1 cm RVDd: 4.3 cm FS: 43.0 % LAV(MOD-bp): 69.0 ml LVAd ap4: 20.8 cm2 SV(MOD-sp4): 36.1 ml LAV(MOD-bp) Indexed: 35.3 ml/m2 LVLd ap4: 6.6 cm LAV(MOD-sp2): 57.7 ml EDV(MOD-sp4): 53.1 ml LAV(MOD-sp4): 78.0 ml EDV(sp4-el): 55.3 ml LVAs ap4: 10.7 cm2 LVLs ap4: 5.8 cm ESV(MOD-sp4): 17.0 ml ESV(sp4-el): 16.9 ml EF(MOD-sp4): 68.0 % EF(sp4-el): 69.4 % SV(sp4-el): 38.4 ml LA A4 area: 25.5 cm2 LA dimension(2D): 3.1 cm RA A4 area: 18.7 cm2 Doppler Measurements & Calculations MV E max matthew: 112.6 cm/sec Lat Peak E' Matthew: 7.3 cm/sec Med Peak E' Matthew: 6.2 cm/sec MV A max matthew: 40.8 cm/sec E/E' lat: 15.4 E/E' med: 18.2 MV E/A: 2.8 Ao V2 max: 115.2 cm/sec LV V1 max: 79.5 cm/sec PA V2 max: 100.2 cm/sec Ao max P.3 mmHg LV V1 max P.5 mmHg Ao V2 mean: 78.7 cm/sec Ao mean P.8 mmHg Ao V2 VTI: 20.5 cm PI end-d matthew: 105.0 cm/sec TR max matthew: 253.0 cm/sec TR max P.6 mmHg ECHO/Echo Complete Interpretation Summary Normal LV size. Left ventricular systolic function is normal. The estimated ejection fraction is 60 %. Stage 1 diastolic dysfunction. Mild (1+) mitral valve insufficiency. There is mild mitral annular calcification. The global longitudinal strain is normal. The global longitudinal strain = -17. 1 % (normal). Ordering Physician: Rubin Brown Referring Physician: Jessica Aguero Performed By: Cuca Joseph, RADU, RVT
[2020-11-25] MEDS: HYDROcodone Bitartrate/Apap 5/325 Tablet PO (20:47)
[2020-11-25] MEDS: APIXABAN 5 MG TABLET PO (20:48)
[2020-11-25] MEDS: Zolpidem Tartrate 5 MG Tablet PO (20:49)
[2020-11-25] MEDS: Pravastatin 20 MG Tablet PO (20:50)
--- NOTE | 2020-11-25 21:29 | NURSING ---
Vitals missing on SEP for cardizem gtt titration from 1944 to 2038 d/t stepdown monitor not taking vitals according to sequence. MCKENNA Serrano.
[2020-11-25] MEDS: Amiodarone 360 MG in Dextrose 5% Viaflo Bag 192.8 ML 33.3 MG CONT INF (23:15)
[2020-11-25] MEDS: 0.9% Saline Lock 10 ML Syringe IV (23:40)
[2020-11-26] VITALS (32 sets, daily range): BP systolic 69–109; BP diastolic 45–75; PULSE 67–109; RESP 13–28; TEMP 36.4–36.7; O2SAT 92–99
[2020-11-26] MEDS: 0.9% Saline Lock 10 ML Syringe IV ×3 (00:03→11:08)
[2020-11-26] MEDS: Ondansetron 4 MG/2 ML Vial IV (00:03)
[2020-11-26] MEDS: 0.9% Normal Saline 1,000 ML 100 ML IV ×2 (01:05→11:08)
[2020-11-26 02:53] LABS: Absolute Lymphocyte Count 0.91 X10^3/uL (0.83-4.51); Absolute Neutrophil Count 5.8 X10^3/uL (2.0-7.7); Basophil# 0.02 X10^3/uL; Basophil% 0.3 % (0-1); Eosinophil# 0.14 X10^3/uL; Eosinophils% 1.8 % (0-5); Hemoglobin 10.5 g/dL (12.0-15.0); Lymphocyte # 0.91 X10^3/ul (0.83-4.51); Lymphocyte % 11.5 % (19-41); Mean Corp Hgb Conc 31.8 g/dL (32-36); Mean Corpuscular Hgb 31.3 pg (27.0-32.0); Mean Corpuscular Volume 98.2 fL (81-99); Monocyte# 0.92 X10^3/uL; Monocyte% 11.7 % (0-10); NRBC Flagged by Analyzer 0 % (0-5); Neutrophil # 5.83 X10^3/uL (2.7-7.7); Neutrophil % 73.9 % (47-70); Platelet Count 207 K/mm3 (150-450); RBC Distribution Width CV 13.5 % (11.6-14.6); RBC Distribution Width SD 48.3 fl (35.1-43.9); Red Blood Count 3.36 M/mm3 (4.2-5.4); White Blood Count 7.9 K/mm3 (4.4-11.0)
[2020-11-26 03:16] LABS: Anion Gap 6 (5-15); BUN 19 mg/dL (7-18); BUN/Creat Ratio 33.1 RATIO (10-20); Calcium,Total 8.3 mg/dL (8.5-10.1); Chloride 111 mmol/L (98-107); Creatinine, Serum 0.57 mg/dL (0.55-1.02); EST Glomerular Filtration Rate 109 mL/min (>60); Est Glom Filt Rate - Afr Amer 131 mL/min (>60); Estimated Creatinine Clearance 43.07 ml/min; Glucose 119 mg/dL (74-106); Potassium 3.3 mmol/L (3.5-5.1); Sodium Level 144 mmol/L (136-145)
--- NOTE | 2020-11-26 04:10 | EKG12_ITS ---
Test Reason : CONVERTED TO NSR Blood Pressure : / mmHG Vent. Rate : 073 BPM Atrial Rate : 073 BPM P-R Int : 246 ms QRS Dur : 080 ms QT Int : 428 ms P-R-T Axes : 088 006 053 degrees QTc Int : 471 ms Sinus rhythm with 1st degree A-V block Otherwise normal ECG When compared with ECG of 25-NOV-2020 15:06, MANUAL COMPARISON REQUIRED, DATA IS UNCONFIRMED Confirmed by MISTY GONZALEZ, JILL ([id number]), state editor ALEXYE BILLINGS ([id number]) on 11/29/2020 8:55:29 AM Referred By: DR PATEL Confirmed By:JILL JAY MD
[2020-11-26] MEDS: Amiodarone 360 MG in Dextrose 5% Viaflo Bag 192.8 ML 16.7 MG CONT INF (05:17)
[2020-11-26] MEDS: Potassium Chloride Oral Tablet 20 MEQ 40 MEQ PO (05:25)
[2020-11-26] MEDS: proCHLORPERazine 10 MG/2 ML Vial 5 MG IV (05:52)
[2020-11-26] MEDS: Nystatin Powder 15gm Bottle 1 APPLIC TOPICAL ×3 (05:55→22:43)
[2020-11-26] MEDS: HYDROcodone Bitartrate/Apap 5/325 Tablet PO ×2 (07:24→22:42)
--- NOTE | 2020-11-26 09:39 | CON.PCM.CA_ITS ---
Assessment & Plan Assessment/Plan (1) Atrial fibrillation with RVR: PLAN: She presented with atrial fibrillation with rapid ventricular response rate. She is in sinus rhythm at this particular time. My recommendations would be as follows: * Discontinue IV amiodarone * Discontinue IV Cardizem * Continue Eliquis * Start metoprolol 25 mg twice a day * Reevaluate left ventricular function with echocardiogram (2) Atherosclerotic heart disease of [place] coronary artery without angina pectoris: QUALIFIERS: [place] vs. transplanted heart: [place] heart Qualified Code(s): I25.10 - Atherosclerotic heart disease of [place] coronary artery without angina pectoris PLAN: She does have minimal atherosclerotic cardiovascular disease. At this time I would not recommend that we make any changes with respect to the above. (3) Essential hypertension: PLAN: Her blood pressure appears to be under good control at this time I would recommend starting metoprolol 25 mg twice a day in addition to her lisinopril hydrochlorothiazide. HPI Consult Data Date of Consult: 11/26/20 HPI Narrative Reason for Consultation: Irregular heartbeat HPI Narrative: ALLISON MAHER, is a 74 F who presents to the emergency room with irregular heartbeat, palpitations, and shortness of breath. She says this has been going on for the last week or so and got worse yesterday. She has the smothering sensation. She does have a previous history of atrial fibrillation dating back to at least 2019. She has been compliant with her medications but occasionally missed a few dosages. She presented to the emergency room and I was called an she was started on and is diltiazem as well as amiodarone. She spontaneously converted to sinus rhythm. I am seeing her this morning for follow-up evaluation. She previously had an echocardiogram in 2019 as well as a stress test both of which were normal. She does not have any previously documented obstructive coronary disease. She is status post breast carcinoma. [facility] Medical History Atherosclerotic heart disease of [place] coronary artery without angina pectoris Atrial fibrillation CAD (coronary artery disease) Chronic pain COPD (chronic obstructive pulmonary disease) Essential hypertension GERD (gastroesophageal reflux disease) Hx of deep vein thrombophlebitis of lower extremity Hyperlipidemia Insomnia Obesity Obstructive sleep apnea Osteoarthritis Osteoporosis Paroxysmal atrial fibrillation Paroxysmal atrial tachycardia Personal history of pulmonary embolism port placement PORT REMOVAL Pure hypercholesterolemia PVD (peripheral vascular disease) Rectal prolapse Home Medications albuterol sulfate 2 puff INHALATION Q4H PRN PRN 06/16/13 [History Last Taken 10/01/17 08:00] omeprazole 20 mg PO DAILY 06/16/13 [History Last Taken 11/25/20] pravastatin 20 mg PO QHS 06/16/13 [History Last Taken 11/24/20] calcium citrate-vitamin D3 2 tab PO DAILY 10/24/18 [History Last Taken 11/25/20] zolpidem 6.25 mg PO QHS PRN PRN 03/24/19 [History Last Taken 11/24/20] furosemide 20 mg tablet 20 mg PO DAILY PRN 06/04/19 [History Last Taken Unknown] anastrozole 1 mg PO DAILY 90 Days #90 tab 12/31/19 [Rx Last Taken 11/25/20] diltiazem HCl 180 mg capsule,extended release 24 hr 180 mg PO DAILY #90 cap [Rx Last Taken 11/25/20] apixaban 5 mg tablet 5 mg PO BID #180 tab 07/18/20 [Rx Last Taken 11/25/20] lisinopril 10 mg-hydrochlorothiazide 12.5 mg tablet 1 tab PO DAILY 08/22/20 [History Last Taken 11/25/20] acetaminophen [Tylenol Arthritis] 1,300 mg PO DAILY PRN 11/25/20 [History Last Taken 11/25/20] denosumab [Prolia] 60 mg SUBCUT .[id number] 11/25/20 [History Last Taken 11/16/20] hydrocodone-acetaminophen 1 tab PO TID 11/25/20 [History Last Taken 11/24/20] Allergy/AdvReac Type Severity Reaction Status Date / Time niacin Allergy Intermediate I DON'T Verified 11/25/20 15:00 REMEMBER, I CAN'T TAKE IT bee stings Allergy Swelling Uncoded 11/16/20 14:44 Family History Brother Diabetes Heart disease Sister Breast cancer Mother Cancer brain and bone mets Aunt Breast cancer Grandmother Cancer Surgical History History of appendectomy History of cholecystectomy History of incisional hernia repair Hx of mastectomy S/P appendectomy S/P carpal tunnel release S/P cataract extraction S/P hysterectomy S/P lumbar discectomy S/P partial thyroidectomy S/P revision of total knee S/P right breast biopsy S/P total knee replacement Social History Smoking Status: Never smoker alcohol intake: never caffeine: No ROS Constitutional Constitutional: Reports as per HPI Eyes Eyes: Reports as per HPI ENT HEENT: Reports as per HPI Cardiovascular Cardiovascular: Reports dyspnea on exertion and irregular heart rhythm; Denies chest pain Respiratory/Chest Respiratory/Chest: Denies systems reviewed and no addt'l complaints, except as documented, as per HPI, none, change in mental status, change in phlegm color, chest congestion, chest tightness, cough, difficulty clearing secretions, dry cough, dusky skin, dyspnea, dyspnea on exertion, excessive phlegm production, hemoptysis, hoarseness, inability to speak, mouth breathing, nail bed cyanosis, non-rest sleep EDS, pain on inspiration, pain with cough, pale skin, sav-oral cyanosis, portable oxygen @ home, productive cough, red skin, restlessness, shortness of breath at rest, shortness of breath with exertion, snoring, stridor, tachypnea, wheezing, witnessed apneas, breast mass, breast pain, breast skin changes, breast swelling, change in breast shape, nipple discharge or other Gastrointestinal Gastrointestinal: Denies systems reviewed and no addt'l complaints, except as documented, as per HPI, none, abdominal pain, anorexia, belching, bloating, change in bowel habits, change in stool character, chewing difficulty, coffee ground emesis, constipation, cramping, diarrhea, dry heaves, dyspepsia, dysphagia, early satiety, excessive flatus, fecal incontinence, heartburn, hematemesis, hematochezia, hemorrhoids, loose stools, melena, nausea, odynophagia, rectal bleeding, taste impaired, tenesmus, vomiting, weight changes or other Genitourinary Genitourinary: Denies systems reviewed and no addt'l complaints, except as documented, as per HPI, none, abdominal discomfort, anuria, burning urination, change in libido, change in urinary stream, contractions, difficulty urinating, difficulty with ejaculations, dribbling, dysuria, erectile dysfunction, external genitalia discoloration, movement, flank pain, genital bruising, genital lesions, genital pain, hematospermia, hematuria, itching, low back pain, nocturia, oliguria, painful ejaculations, penile discharge, penile swelling, polyuria, post void dribbling, scrotal pain, scrotal swelling, testicular mass, testicular swelling, undescended testicles, urinary frequency, urinary hesitancy, urinary incontinence, urinary urgency or other Musculoskeletal Musculoskeletal: Denies systems reviewed and no addt'l complaints, except as documented, as per HPI, none, abnormal gait, arthralgias, atrophy, back pain, deformity, difficulty walking, extremity pain, joint pain, joint stiffness, luis int swelling, limited range of motion, loss of height, muscle cramps, muscle spasms, muscle weakness, myalgias, neck pain, numbness, radiating pain into limb, stiffness, tingling, tremors or other Integumentary Integumentary: Denies systems reviewed and no addt'l complaints, except as documented, as per HPI, none, acne, alopecia, bleeding lesions, change in hair, change in pigmentation, changing lesions, dry skin, erythema, furuncle, hirsutism, jaundice, lesions, nail changes, new lesions, non-healing lesions, photosensitivity, pruritus, rash, skin pain, skin ulcer, skin swelling, sores, striae, unusual bruising, wounds or other Neurologic Neurologic: Denies systems reviewed and no addt'l complaints, except as documented, as per HPI, none, abnormal gait, abnormal hearing, abnormal movements, abnormal speech, behavior changes, burning sensations, confusion, convulsions, disequilibrium, dizziness, focal weakness, frequent falls, headache(s), lack of coordination, loss of vision, memory loss, numbness, other visual disturbances, paresthesias, radicular pain, restless legs, seizure-like activity, seizures, sensory deficit, syncope, tingling, tremor(s), vertigo, weakness or other Psychiatric Psychiatric: Denies systems reviewed and no addt'l complaints, except as documented, as per HPI, none, abnormal sleep pattern, anhedonia, anxiety, auditory hallucinations, behavioral changes, change in appetite, change in libido, cognitive impairment, confusion, depression, difficulty concentrating, hallucinations, homicidal ideation, hopelessness, irritability, memory loss, mood swings, panic attacks, paranoia, suicidal ideation, suicidal thoughts, tactile hallucinations, visual hallucinations or other Endocrine Endocrinology: Denies systems reviewed and no addt'l complaints, except as documented, as per HPI, none, change in body appearance, change in libido, cold intolerance, deepening of the voice, excessive sweating, fatigue, flushing, heat intolerance, increase in ring/shoe/hat size, palpitations, polydipsia, polyphagia, polyuria or other Physical Exam Const oriented x3 and healthy appearing Orientation / Consciousness: awake HEENT normocephalic Eyes PERRL and conjunctivae normal Neck supple, no JVD and no carotid bruits Chest inspection of chest normal Resp normal respiratory effort and clear to auscultation bilaterally Cardio Palpation: normal PMI Rate: regular rate Rhythm: regular rhythm Heart Sounds: S1 normal and S2 normal Peripheral Pulses: pulses 2+ throughout GI normal to inspection, nondistended, normoactive bowel sounds Extremity normal to inspection and no clubbing, cyanosis or edema Psych mental status grossly normal
[2020-11-26] MEDS: hydroCHLOROthiazide 12.5mg 12.5 MG PO (10:03)
[2020-11-26] MEDS: Anastrozole 1 MG TABLET PO (10:03)
[2020-11-26] MEDS: Pantoprazole Sodium 20 MG Tablet PO (10:03)
[2020-11-26] MEDS: Metoprolol Tartrate 25 MG Tablet PO ×2 (10:03→22:43)
[2020-11-26] MEDS: APIXABAN 5 MG TABLET PO ×2 (10:03→22:43)
--- NOTE | 2020-11-26 12:00 | CASEMGMT ---
MUNDO Note Referral Source: ED Physician Surgeon Referral Reason: Recent loss of / counseling Mundo met with patient in her room. Patient, who prefers to be called Colleen, reports that her April 2020. She indicated that she and her had been for 58 year and 4 months. Patient said that she had been to her at age 16 and thus living alone has been a new experience for her. Colleen reports that she sold their home and moved to a trailer [place] [facility]. Colleen said that her 2 sons, one lives locally and one lives 1 .5 hours away, have been supportive. Patient said that she has a daughter but stated her daughter is mental ill. Patient said that in July she had a nerve block and was in pain so she lived with her son, who lives locally, for 3 months. Patient talked about trying to get her current home updated with safety products such as handrails in the bathroom and ramp but the person that was supposed to complete the project has not come back to complete it and took her money. Patient said that she is linked with [employer] and has a new rollator and gets pull ups if I need them. Patient said that she has a walk in shower but no shower chair. Patient said that she was going to have grab bars put in the shower but as the man who was supposed to renovate her home did not complete the project she got plastic lift mechanic from [employer] for her shower. Patient said that she may benefit from a RN who could come to her home as well as home health staff that could help her with showering and cleaning. SW provided patient with list of counseling agencies and also indicated hospice provides counseling. Patient said she hadn't been able to get into counseling as I had no time related to taking care of business related to her , selling her home, moving and then having pain issues. SW encouraged patient to reach out for support. Patient said that she had gotten on facebook grief group but found it was depressing as they felt like me.. but no one got help. While in the room, patient's son, who lives 1.5 hours away, called and indicated he was on his way to visit patient. SW provided patient with emotional support. Patient was educated on [facility] network and gave verbal consent for referral to [facility]. Plan: SW made referral to [facility]. Patient was given list of community MH agencies as well as educated patient on grief counseling from Hospice. Emotional support provided. Latricia VASQUEZ
--- NOTE | 2020-11-26 14:19 | PN.HOSP_ITS ---
Subjective Subjective: Patient seen and examined. She was admitted with a complaint of weakness and shortness of breath as well as palpitations. She is being managed for afib with RVR. She is on cardizem and amiodarone drip. Patient feels better this morning. She has no complaints. Review of systems is otherwise negative. SHe has remained hemodynamically stable. She is now in sinus rhythm. Objective Data Objective Data Vital Signs: Vital Signs Temp Pulse Resp BP Pulse Ox 97.8 F 74 20 H 109/64 94 11/26/20 10:00 11/26/20 11:07 11/26/20 11:07 11/26/20 11:07 11/26/20 11:07 Oxygen Flow Rate (L/min) 2 Oxygen Delivery Method Room Air Weight: 193 lb 4.786 oz Body Mass Index (BMI) 32.1 Finger Stick Blood Glucose 80 Intake & Output: Intake and Output for Last 24 Hours 11/24/20 11/25/20 11/26/20 23:59 23:59 23:59 Intake Total 206.57 / 629.90 2304.50 / 2304.50 Output Total 120 / 120 Balance 206.57 / 629.90 2184.50 / 2184.50 Lab / Micro Data Result Diagrams: 11/26/20 02:43 11/26/20 02:43 Labs: Laboratory Results - last 24 hr 11/25/20 11/25/20 11/25/20 15:15 15:15 21:15 WBC 7.6 RBC 3.77 L Hgb 11.7 L Hct 37.0 MCV 98.1 MCH 31.0 MCHC 31.6 L RDW Std Deviation 49.0 H RDW Coeff of Jenna 13.6 Plt Count 227 MPV 9.4 Immature Gran % (Auto) 0.300 Neut % (Auto) 78.5 H Lymph % (Auto) 10.9 L [place] % (Auto) 8.8 Eos % (Auto) 1.2 Baso % (Auto) 0.3 Absolute Neuts (auto) 6.0 Absolute Lymphs (auto) 0.83 Nucleated RBC % 0 Sodium 143 Potassium 3.9 Chloride 111 H Carbon Dioxide 25.0 Anion Gap 7 BUN 17 Creatinine 0.63 Estim Creat Clear Calc 43.07 Est GFR (MDRD) Af Amer 118 Est GFR (MDRD) Non-Af 98 BUN/Creatinine Ratio 27.0 H Glucose 118 H Calcium 8.1 L Magnesium 2.1 Total Bilirubin 0.60 AST 11 L ALT 12 L Alkaline Phosphatase 45 Troponin I < 0.015 < 0.015 Total Protein 6.3 L Albumin 3.0 L Globulin 3.3 Albumin/Globulin Ratio 0.9 11/25/20 11/26/20 11/26/20 23:40 02:43 02:43 WBC 7.9 RBC 3.36 L Hgb 10.5 L Hct 33.0 L MCV 98.2 MCH 31.3 MCHC 31.8 L RDW Std Deviation 48.3 H RDW Coeff of Jenna 13.5 Plt Count 207 MPV 9.0 Immature Gran % (Auto) 0.800 Neut % (Auto) 73.9 H Lymph % (Auto) 11.5 L [place] % (Auto) 11.7 H Eos % (Auto) 1.8 Baso % (Auto) 0.3 Absolute Neuts (auto) 5.8 Absolute Lymphs (auto) 0.91 Nucleated RBC % 0 Sodium 144 Potassium 3.3 L Chloride 111 H Carbon Dioxide 27.0 Anion Gap 6 BUN 19 H Creatinine 0.57 Estim Creat Clear Calc 43.07 Est GFR (MDRD) Af Amer 131 Est GFR (MDRD) Non-Af 109 BUN/Creatinine Ratio 33.1 H Glucose 119 H Calcium 8.3 L Magnesium Total Bilirubin AST ALT Alkaline Phosphatase Troponin I < 0.015 Total Protein Albumin Globulin Albumin/Globulin Ratio 11/26/20 02:43 WBC RBC Hgb Hct MCV MCH MCHC RDW Std Deviation RDW Coeff of Jenna Plt Count MPV Immature Gran % (Auto) Neut % (Auto) Lymph % (Auto) [place] % (Auto) Eos % (Auto) Baso % (Auto) Absolute Neuts (auto) Absolute Lymphs (auto) Nucleated RBC % Sodium Potassium Chloride Carbon Dioxide Anion Gap BUN Creatinine Estim Creat Clear Calc Est GFR (MDRD) Af Amer Est GFR (MDRD) Non-Af BUN/Creatinine Ratio Glucose Calcium Magnesium Total Bilirubin AST ALT Alkaline Phosphatase Troponin I < 0.015 Total Protein Albumin Globulin Albumin/Globulin Ratio Radiography Diagnostic Testing: Radiology Impression Chest X-Ray 11/25/20 15:47 IMPRESSION: Cardiomegaly. Hazy right upper lung field airspace disease suspicious for pneumonia. Recommend follow-up to resolution. Possible small right pleural effusion. at 1602 Reported and signed by: Josué Mckinney MD Electronically Signed: Josué Mckinney MD at 16:00 EDT Tel , Service support , Echocardiogram 11/25/20 20:00 Interpretation Summary Normal LV size. Left ventricular systolic function is normal. The estimated ejection fraction is 60 %. Stage 1 diastolic dysfunction. Mild (1+) mitral valve insufficiency. There is mild mitral annular calcification. The global longitudinal strain is normal. The global longitudinal strain = -17.1 % (normal). Ordering Physician: Rubin Brown Referring Physician: Jessica Aguero Performed By: Cuca Joseph RDCS, RVT Physical Exam Const alert, oriented x3 and no apparent distress Exam Limitations: no limitations HEENT head/scalp atraumatic and moist oral mucous membranes Head and Scalp: normocephalic Eyes PERRL, EOMs intact bilaterally and conjunctivae normal Resp normal respiratory effort, no retractions, no use of accessory muscles and clear to auscultation bilaterally Cardio regular rate, regular rhythm, S1 normal heart sound, S2 normal heart sound and no murmurs GI normal to inspection, nondistended, normoactive bowel sounds, soft to palpation, non-tender and non-distended Extremity normal to inspection, full ROM and no clubbing, cyanosis or edema Skin no rashes or lesions noted Neuro oriented x3 Sensorium / Orientation: awake and alert Psych affect normal Assessment & Plan Assessment/Plan (1) Atrial fibrillation with RVR: (2) Essential hypertension: (3) TALAT (iron deficiency anemia): (4) Pure hypercholesterolemia: PLAN: #Afib with RVR * on amiodarone and cardizem drip * cardiology consulted; appreciate rec's. Amiodarone and cardizem discontinued * on eliquis * started on PO metoprolol 25mg bid * 2D echo today: Normal EF of 60% with stage I diastolic dysfunction and mild mitral annular calcification. #History of breast cancer * s/p right mastectomy * on anastrozole * #COPD: not in exacerbation. Breathing treatment with bronchodilators. #GERD: stable. On PPI #Hypertension: on lisinopril. #Hyperlipidemia: on statin #CAD; on metoprolol and statin as well as lisinopril and HCTZ. #DVT prophylaxis: not indicated as she is on eliquis. Visit Charges Inpatient E&M: 88328 Subs Hosp L2
[2020-11-26] MEDS: Pravastatin 20 MG Tablet PO (22:42)
[2020-11-27] VITALS (12 sets, daily range): BP systolic 102–127; BP diastolic 53–57; PULSE 67–81; RESP 18–20; TEMP 36.6–36.8; O2SAT 95–97
[2020-11-27] MEDS: Menthol/Lanolin/Calamine/Znox 113 GM Tube 1 APPLIC TOPICAL ×3 (06:24→22:47)
--- NOTE | 2020-11-27 09:12 | PN.CARD_ITS ---
Subjective Subjective: Pt seen and evaluated Objective Data Vital Signs: Vital Signs Temp Pulse Resp BP Pulse Ox 98 F 72 18 102/53 L 95 11/27/20 03:13 11/27/20 07:00 11/27/20 03:13 11/27/20 03:13 11/27/20 07:01 Oxygen Flow Rate (L/min) 2 Oxygen Delivery Method Room Air Weight: 193 lb 4.786 oz Body Mass Index (BMI) 32.1 Finger Stick Blood Glucose 80 Intake & Output: Intake and Output for Last 24 Hours 11/25/20 11/26/20 11/27/20 23:59 23:59 23:59 Intake Total 206.57 / 629.90 3544.50 / 3664.50 700 / 700 Output Total 120 / 320 350 / 350 Balance 206.57 / 629.90 3424.50 / 3344.50 350 / 350 Lab / Micro Data Result Diagrams: 11/26/20 02:43 11/26/20 02:43 Cardiology Labs/Tests Rhythm: EKG: ECHO: Stress Test: Cardiac Cath: PCI: CT Surgery: Holter monitor: EPS: PPM: CXR: Chest CT Scan: Radiography Diagnostic Testing: Radiology Impression Echocardiogram 11/25/20 20:00 Interpretation Summary Normal LV size. Left ventricular systolic function is normal. The estimated ejection fraction is 60 %. Stage 1 diastolic dysfunction. Mild (1+) mitral valve insufficiency. There is mild mitral annular calcification. The global longitudinal strain is normal. The global longitudinal strain = -17.1 % (normal). Ordering Physician: Rubin Brown Referring Physician: Jessica Aguero Performed By: Cuca Joseph, RADU, RVT Physical Exam Const oriented x3 and healthy appearing Orientation / Consciousness: awake HEENT normocephalic Eyes PERRL and conjunctivae normal Neck supple, no JVD and no carotid bruits Chest inspection of chest normal Resp normal respiratory effort and clear to auscultation bilaterally Cardio Palpation: normal PMI Rate: regular rate Rhythm: regular rhythm Heart Sounds: S1 normal and S2 normal Peripheral Pulses: pulses 2+ throughout GI normal to inspection, nondistended, normoactive bowel sounds Extremity normal to inspection and no clubbing, cyanosis or edema Psych mental status grossly normal Assessment & Plan Assessment/Plan (1) Atrial fibrillation with RVR: PLAN: She presented with atrial fibrillation with rapid ventricular response rate. She is in sinus rhythm at this particular time. My recommen dations would be as follows: * continue current meds (2) Atherosclerotic heart disease of [place] coronary artery without angina pectoris: QUALIFIERS: [place] vs. transplanted heart: [place] heart Qualified Code(s): I25.10 - Atherosclerotic heart disease of [place] coronary artery without angina pectoris PLAN: She does have minimal atherosclerotic cardiovascular disease. At this time I would not recommend that we make any changes with respect to the above. (3) Essential hypertension: PLAN: Her blood pressure appears to be under good control at this time I would recommend starting metoprolol 25 mg twice a day in addition to her lisinopril hydrochlorothiazide.
[2020-11-27 09:16] LABS: Anion Gap 7 (5-15); BUN 23 mg/dL (7-18); Calcium,Total 7.8 mg/dL (8.5-10.1); Chloride 109 mmol/L (98-107); Creatinine, Serum 0.85 mg/dL (0.55-1.02); EST Glomerular Filtration Rate 69 mL/min (>60); Est Glom Filt Rate - Afr Amer 83 mL/min (>60); Estimated Creatinine Clearance 50.67 ml/min; Glucose 131 mg/dL (74-106); Potassium 4.5 mmol/L (3.5-5.1); Sodium Level 139 mmol/L (136-145)
[2020-11-27] MEDS: Ondansetron 4 MG/2 ML Vial IV (10:37)
[2020-11-27] MEDS: 0.9% Saline Lock 10 ML Syringe IV (10:37)
[2020-11-27] MEDS: Metoprolol Tartrate 25 MG Tablet PO ×2 (10:41→22:46)
[2020-11-27] MEDS: Anastrozole 1 MG TABLET PO (10:41)
[2020-11-27] MEDS: Pantoprazole Sodium 20 MG Tablet PO (10:41)
[2020-11-27] MEDS: Lisinopril 10 MG Tablet PO (10:41)
[2020-11-27] MEDS: APIXABAN 5 MG TABLET PO ×2 (10:41→22:46)
[2020-11-27] MEDS: hydroCHLOROthiazide 12.5mg 12.5 MG PO (10:41)
[2020-11-27] MEDS: Nystatin Powder 15gm Bottle 1 APPLIC TOPICAL ×2 (10:42→22:46)
[2020-11-27] MEDS: Acetaminophen 325 MG Tablet 650 MG PO (11:55)
[2020-11-27] MEDS: Polyethylene Glycol 3350 17 GM PACKET PO (11:55)
--- NOTE | 2020-11-27 14:08 | PN.HOSP_ITS ---
Subjective Subjective: Patient seen and examined. She states she feels weak and does not feel she is fully recovered. She is mainly in sinus rhythm of the amiodarone and Cardizem drips. She also complains of constipation. Review systems otherwise negative. Patient does not think she can go home today and wants 1 more day in the hospital. She has otherwise remained hemodynamically stable. Objective Data Objective Data Vital Signs: Vital Signs Temp Pulse Resp BP Pulse Ox 97.9 F 78 18 109/57 L 95 11/27/20 09:00 11/27/20 11:00 11/27/20 09:00 11/27/20 10:41 11/27/20 09:00 Oxygen Flow Rate (L/min) 2 Oxygen Delivery Method Room Air Weight: 193 lb 4.786 oz Body Mass Index (BMI) 32.1 Finger Stick Blood Glucose 80 Intake & Output: Intake and Output for Last 24 Hours 11/25/20 11/26/20 11/27/20 23:59 23:59 23:59 Intake Total 206.57 / 629.90 3544.50 / 3664.50 940 / 940 Output Total 120 / 320 450 / 450 Balance 206.57 / 629.90 3424.50 / 3344.50 490 / 490 Lab / Micro Data Result Diagrams: 11/26/20 02:43 11/27/20 08:50 Labs: Laboratory Results - last 24 hr 11/27/20 08:50 Sodium 139 Potassium 4.5 Chloride 109 H Carbon Dioxide 23.0 Anion Gap 7 BUN 23 H Creatinine 0.85 Estim Creat Clear Calc 50.67 Est GFR (MDRD) Af Amer 83 Est GFR (MDRD) Non-Af 69 BUN/Creatinine Ratio 27.0 H Glucose 131 H Calcium 7.8 L Physical Exam Const alert, oriented x3 and no apparent distress General Appearance: cooperative Exam Limitations: no limitations HEENT normocephalic, head/scalp atraumatic and moist oral mucous membranes Eyes PERRL, EOMs intact bilaterally and conjunctivae normal Neck no lymphadenopathy, supple and no JVD Resp normal respiratory effort, no retractions, no use of accessory muscles and clear to auscultation bilaterally Auscultation: Negative for crackles, rales, rhonchi or wheezes Cardio regular rate, regular rhythm, S1 normal heart sound, S2 normal heart sound and no murmurs Rate: tachycardic Rhythm: abnormal rhythm irregularly irregular GI normal to inspection, nondistended, normoactive bowel sounds, soft to palpation, non-tender and non-distended; Negative for hepatosplenomegaly Extremity normal to inspection, full ROM and no clubbing, cyanosis or edema Skin no rashes or lesions noted Neuro oriented x3, moves all extremities and no focal motor deficits Sensorium / Orientation: awake and alert Psych affect normal Assessment & Plan Assessment/Plan (1) Atrial fibrillation with RVR: (2) Essential hypertension: (3) TALAT (iron deficiency anemia): (4) Pure hypercholesterolemia: PLAN: #Afib with RVR * off cardizem and amiodarone drips * on eliquis * on PO metoprolol 25mg bid * 2D echo: Normal EF of 60% with stage I diastolic dysfunction and mild mitral annular calcification. #History of breast cancer * s/p right mastectomy * on anastrozole * #COPD: not in exacerbation. Breathing treatment with bronchodilators. #GERD: stable. On PPI #Hypertension: on lisinopril. #Hyperlipidemia: on statin #CAD: on metoprolol and statin as well as lisinopril and HCTZ. #DVT prophylaxis: not indicated as she is on eliquis. Disposition: for ne home tomorrow Visit Charges Inpatient E&M: 18200 Subs Hosp L2
[2020-11-27] MEDS: Albuterol 2.5 MG/3 ML VIAL.NEB. INHALATION (20:58)
--- NOTE | 2020-11-27 21:16 | NURSING ---
pt calls out c/o asthma attack. this rn entered room and noted pt to be coughing, spitting sputum out and holding her chest. ls wheezy and resprs 25-35 upon obs. hr 83 and spo2 98%. this rn notified WAREHOUSE COORDINATOR feliz luo and obtained order for albuterol aerosols. cps notified and came to room to administer. pt's breathing now improved. resprs wnl. rhonchi noted in upper lobes. pt continues to cough up thick sputum, but wheezes sig improved. all vs wnl at this time. pt denies needs.
[2020-11-27] MEDS: Pravastatin 20 MG Tablet PO (22:46)
[2020-11-27] MEDS: HYDROcodone Bitartrate/Apap 5/325 Tablet PO (22:46)
[2020-11-28] VITALS (13 sets, daily range): BP systolic 107–150; BP diastolic 53–71; PULSE 66–74; RESP 16–20; TEMP 36.6–37.1; O2SAT 92–95
[2020-11-28] MEDS: Menthol/Lanolin/Calamine/Znox 113 GM Tube 1 APPLIC TOPICAL ×3 (05:20→21:57)
[2020-11-28] MEDS: Anastrozole 1 MG TABLET PO (09:25)
[2020-11-28] MEDS: APIXABAN 5 MG TABLET PO ×2 (09:26→21:55)
[2020-11-28] MEDS: hydroCHLOROthiazide 12.5mg 12.5 MG PO (09:26)
[2020-11-28] MEDS: Polyethylene Glycol 3350 17 GM PACKET PO (09:27)
[2020-11-28] MEDS: Metoprolol Tartrate 25 MG Tablet PO ×2 (09:27→21:56)
[2020-11-28] MEDS: Pantoprazole Sodium 20 MG Tablet PO (09:28)
[2020-11-28] MEDS: Nystatin Powder 15gm Bottle 1 APPLIC TOPICAL ×2 (09:28→21:56)
[2020-11-28] MEDS: Ondansetron 4 MG/2 ML Vial IV (09:29)
[2020-11-28] MEDS: 0.9% Saline Lock 10 ML Syringe IV (09:29)
[2020-11-28] MEDS: Lisinopril 10 MG Tablet PO (09:29)
[2020-11-28] MEDS: Acetaminophen 325 MG Tablet 650 MG PO (09:32)
--- NOTE | 2020-11-28 09:55 | CASEMGMT ---
Addendum entered by Joslyn Razo 11/28/20 15:39: SW received a return call from Mena Rasmussen with [facility]. She said patient currently does not have any services as she was in the process of moving and did not want anything until she was settled. She spoke with her 4- and patient told her she is ready to start services. Mena has been working on finding an aide for patient. SW to let Mena know when patient is discharged. Joslyn FATIMA Addendum entered by Joslyn Razo 11/28/20 14:27: ALFONSO called [facility] back and left a voice mail for coverage requesting a return call. Joslyn FATIMA Original Note: Per Saturday SW patient would like an increase in her Passport services. 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 SW called [facility] coverage line and there was no answer. ALFONSO will try back again. Joslyn FATIMA
--- NOTE | 2020-11-28 13:19 | CASEMGMT ---
[facility] palliative screening completed and pt does not meet palliative criteria at this time. SStaminah RN CM
--- NOTE | 2020-11-28 14:10 | CASEMGMT ---
RN CM in to pt room to discuss dc planning. Pt states she recently lost her and had to sell her house in [place]. Pt states she does not want therapy at home, but would be willing to have home SN and CRANE OPERATOR CAB. Pt states she has had [facility] in the past and would like them again. Offered to bring a list of local in network C providers and pt declined. TC lexus Frost, intake at [facility] and made referral. They are able to accept pt. Pt aware and verbalizes understanding of this. Pt denies further needs.
[2020-11-28] MEDS: HYDROcodone Bitartrate/Apap 5/325 Tablet PO ×2 (14:12→21:55)
--- NOTE | 2020-11-28 15:14 | CHAPLAIN ---
Type of Pastoral Visit _x__ Initial Visit ___ Follow-up Visit ___ On-call Visit ___ General Patient Visit ___ Spiritual Assessment ___ Family Conference ___ Bereavement ___ Rapid Response ___ Code Blue ___ Other (describe below) Pastoral Care Referral From _x__ Patient ___ Family ___ Nurse ___ Physician ___ Customs Examiner ___ Grinder Set Up Operator External ___ Other (describe below) Sacrament/Intervention _x__ Active listening ___ Anointing ___ Islam ___ Bereavement ___ Communion _x_ Liz exploration ___ _x__ Life review _x__ Prayer ___ Reconciliation ___ Sacrament of Sick _x__ Supportive presence ___ Wedding ___ Other (describe below) Pastoral Comments patient was in April and discussion about how she is coping with spouse's ; changes have come to pt and includes some health concerns; pt is strong in liz and seeks spiritual support and prayer
--- NOTE | 2020-11-28 16:01 | PN.HOSP_ITS ---
Subjective Subjective: Nauseated. Not eating much. Objective Data Objective Data Vital Signs: Vital Signs Temp Pulse Resp BP Pulse Ox 36.9 C 66 18 123/60 H 94 11/28/20 09:10 11/28/20 11:00 11/28/20 09:10 11/28/20 09:27 11/28/20 09:10 Oxygen Flow Rate (L/min) 2 Oxygen Delivery Method Room Air Weight: 87.679 kg Body Mass Index (BMI) 32.1 Finger Stick Blood Glucose 80 Intake & Output: Intake and Output for Last 24 Hours 11/26/20 11/27/20 11/28/20 23:59 23:59 23:59 Intake Total 3544.50 / 3664.50 1180 / 1980 1400 / 1400 Output Total 120 / 320 750 / 1150 750 / 750 Balance 3424.50 / 3344.50 430 / 830 650 / 650 Lab / Micro Data Result Diagrams: 11/26/20 02:43 11/27/20 08:50 Physical Exam Const alert HEENT Head and Scalp: normocephalic Eyes PERRL Resp normal respiratory effort and clear to auscultation bilaterally Cardio regular rate, regular rhythm, S1 normal heart sound and S2 normal heart sound GI normal to inspection, nondistended, normoactive bowel sounds, non-tender and non-distended Extremity normal to inspection Neuro Sensorium / Orientation: awake and alert Assessment & Plan Assessment/Plan (1) Atrial fibrillation with RVR: (2) Essential hypertension: (3) TALAT (iron deficiency anemia): (4) Pure hypercholesterolemia: PLAN: #Afib with RVR * stable * off cardizem and amiodarone drips * on eliquis * on PO metoprolol 25mg bid * 2D echo: Normal EF of 60% with stage I diastolic dysfunction and mild mitral annular calcification. #History of breast cancer * s/p right mastectomy * on anastrozole * #COPD: not in exacerbation. Breathing treatment with bronchodilators. #GERD: stable. On PPI #Hypertension: on lisinopril. #Hyperlipidemia: on statin #CAD: on metoprolol and statin as well as lisinopril and HCTZ. #DVT prophylaxis: not indicated as she is on eliquis. Nausea: ongoing. increase PPI to BID. Disposition: pending resolution of nausea Visit Charges Inpatient E&M: 21188 Subs Hosp L2
[2020-11-28] MEDS: Pantoprazole Sodium 40 MG Tablet PO (21:55)
[2020-11-28] MEDS: Pravastatin 20 MG Tablet PO (21:56)
[2020-11-29] VITALS (14 sets, daily range): BP systolic 101–164; BP diastolic 50–72; PULSE 62–75; RESP 16–20; TEMP 36.6–37.3; O2SAT 92–96
[2020-11-29] MEDS: Acetaminophen 325 MG Tablet 650 MG PO (06:24)
[2020-11-29] MEDS: Menthol/Lanolin/Calamine/Znox 113 GM Tube 1 APPLIC TOPICAL ×3 (06:25→21:12)
[2020-11-29] MEDS: Polyethylene Glycol 3350 17 GM PACKET PO (09:49)
[2020-11-29] MEDS: Metoprolol Tartrate 25 MG Tablet PO ×2 (09:50→21:13)
[2020-11-29] MEDS: hydroCHLOROthiazide 12.5mg 12.5 MG PO (09:51)
[2020-11-29] MEDS: Lisinopril 10 MG Tablet PO (09:51)
[2020-11-29] MEDS: APIXABAN 5 MG TABLET PO ×2 (09:51→21:13)
[2020-11-29] MEDS: Anastrozole 1 MG TABLET PO (09:51)
[2020-11-29] MEDS: Pantoprazole Sodium 40 MG Tablet PO ×2 (09:52→21:12)
[2020-11-29] MEDS: Nystatin Powder 15gm Bottle 1 APPLIC TOPICAL ×2 (09:52→21:12)
[2020-11-29] MEDS: 0.9% Saline Lock 10 ML Syringe IV ×2 (09:54→16:40)
[2020-11-29] MEDS: Ondansetron 4 MG/2 ML Vial IV ×2 (09:55→16:40)
[2020-11-29] MEDS: HYDROcodone Bitartrate/Apap 5/325 Tablet PO ×2 (14:29→22:05)
--- NOTE | 2020-11-29 15:05 | CASEMGMT ---
Pt screened with [facility] Palliative Screening Tool due to strata 3, pt did not meet criteria.
[2020-11-29] MEDS: Albuterol 2.5 MG/3 ML VIAL.NEB. INHALATION (15:39)
--- NOTE | 2020-11-29 16:25 | NURSING ---
This RN taking over care at this time
[2020-11-29 20:55] LABS: ALB/GLOB Ratio 0.7 RATIO (0.9-2.4); AST(SGOT) 18 U/L (15-37); Alanine Aminotransfer ALT/SGPT 11 U/L (13-56); Albumin, Serum 2.6 g/dL (3.2-5.0); Alkaline Phosphatase 44 U/L (45-117); Anion Gap 4 (5-15); BUN 14 mg/dL (7-18); BUN/Creat Ratio 17.8 RATIO (10-20); Calcium,Total 8.6 mg/dL (8.5-10.1); Chloride 105 mmol/L (98-107); Creatinine, Serum 0.79 mg/dL (0.55-1.02); EST Glomerular Filtration Rate 75 mL/min (>60); Est Glom Filt Rate - Afr Amer 91 mL/min (>60); Estimated Creatinine Clearance 43.07 ml/min; Globulin 3.5 g/dL (2.2-4.2); Glucose 139 mg/dL (74-106); Magnesium 1.9 mg/dL (1.6-2.6); Potassium 4.4 mmol/L (3.5-5.1); Protein, Total 6.1 g/dL (6.4-8.2); Sodium Level 138 mmol/L (136-145)
[2020-11-29 21:04] LABS: Phosphorus 3.6 mg/dL (2.5-4.9)
[2020-11-29] MEDS: Pravastatin 20 MG Tablet PO (21:12)
[2020-11-29] MEDS: Zolpidem Tartrate 5 MG Tablet PO (22:05)
[2020-11-30] VITALS (9 sets, daily range): BP systolic 124–166; BP diastolic 55–73; PULSE 61–72; RESP 18–20; TEMP 36.8–36.9; O2SAT 91–96
[2020-11-30] MEDS: Menthol/Lanolin/Calamine/Znox 113 GM Tube 1 APPLIC TOPICAL (06:40)
[2020-11-30] MEDS: Acetaminophen 325 MG Tablet 650 MG PO (06:41)
[2020-11-30] MEDS: Ondansetron 4 MG/2 ML Vial IV ×2 (08:07→12:08)
[2020-11-30] MEDS: 0.9% Saline Lock 10 ML Syringe IV ×2 (08:07→12:09)
[2020-11-30] MEDS: Polyethylene Glycol 3350 17 GM PACKET PO (09:47)
[2020-11-30] MEDS: Metoprolol Tartrate 25 MG Tablet PO (09:47)
[2020-11-30] MEDS: Lisinopril 10 MG Tablet PO (09:48)
[2020-11-30] MEDS: Pantoprazole Sodium 40 MG Tablet PO (09:48)
[2020-11-30] MEDS: hydroCHLOROthiazide 12.5mg 12.5 MG PO (09:49)
[2020-11-30] MEDS: Anastrozole 1 MG TABLET PO (09:49)
[2020-11-30] MEDS: APIXABAN 5 MG TABLET PO (09:49)
[2020-11-30] MEDS: Nystatin Powder 15gm Bottle 1 APPLIC TOPICAL (09:52)
--- NOTE | 2020-11-30 11:15 | PCM.DC ---
Discharge Instructions Diet Discharge Diet: No restrictions Activity Discharge Activity: Return to Normal Activity Dressing / Incision Call your doctor if you observe: Fever of 101 or Higher and Shortness of breath Follow Up Care Test Results: Test results from this visit will be discussed in further detail at your follow-up appointment, if applicable. Discharge Plan Admission Admit Date/Time: 11/25/20 18:28 Attending Provider: Aníbal Driver Primary Care Provider: Jessica Aguero Consulting Providers: Juan Carlos Blackwood Instructions Patient Instructions: ED Chest Pain, Noncardiac Discharge Orders/Prescriptions Prescriptions: New metoprolol tartrate 25 mg Tablet 25 mg PO BID Qty: 60 RF: 0 ondansetron HCl [Zofran] 4 mg tablet 4 mg PO TID Qty: 60 RF: 0 Continued pravastatin 40 MG tablet 20 mg PO QHS RF: 0 omeprazole 20 MG capsule 20 mg PO DAILY RF: 0 albuterol sulfate 1 PUFF inhaler 2 puff INHALATION Q4H PRN PRN (Reason: Asthma) RF: 0 zolpidem 12.5 MG tablet,ext release multiphase 6.25 mg PO QHS PRN PRN (Reason: Insomnia) RF: 0 anastrozole 1 MG tablet 1 mg PO DAILY 90 Days Qty: 90 RF: 3 calcium citrate-vitamin D3 1 EACH tablet 2 tab PO DAILY RF: 0 hydrocodone-acetaminophen 5-325 mg tablet 1 tab PO TID RF: 0 acetaminophen 650 mg Tablet Extended Release 1,300 mg PO DAILY PRN (Reason: Pain) RF: 0 Prolia 60 mg/mL Syringe 60 mg SUBCUT .[id number] RF: 0 Eliquis 5 mg tablet 5 mg PO BID Qty: 180 RF: 3 lisinopril-hydrochlorothiazide 10-12.5 mg tablet 1 tab PO DAILY RF: 0 Discontinued furosemide 20 mg tablet 20 mg PO DAILY PRN (Reason: water pill) RF: 0 diltiazem HCl 180 mg capsule,extended release 24hr 180 mg PO DAILY Qty: 90 RF: 3 Referrals / Follow Up: Jessica Aguero DO [Primary Care Provider] - Disposition Disposition (needs filled in before D/C Order can be placed): Home Health Service
--- NOTE | 2020-11-30 11:17 | CASEMGMT ---
TC lexus jiménez at [facility], left vm to make aware pt is dc'ing today.
--- NOTE | 2020-11-30 11:28 | DS.PCM_ITS ---
Providers Date of Admission: 11/25/20 Primary Care Physician: Dr. Jessica Aguero DO Consultations 11/26/20 08:47 Consult: Cardiology Routine Consulting Provider: Juan Carlos Blackwood Reason for Consult: afib rvr EMERGENT Consult: No MD Notified: Yes Date Notified:: 11/26/20 Time Notified: 08:47 Method of Notification: MD to MD Reason For Visit: AFIB WITH RVR AND CHEST PAIN Diagnosis Discharge Diagnosis (1) Atrial fibrillation with RVR: Status: Acute Code(s): I48.91 - Unspecified atrial fibrillation (2) Essential hypertension: Status: Chronic Code(s): I10 - Essential (primary) hypertension (3) TALAT (iron deficiency anemia): Status: Chronic Code(s): D50.9 - Iron deficiency anemia, unspecified (4) Pure hypercholesterolemia: Status: Chronic Code(s): E78.00 - Pure hypercholesterolemia, unspecified Medications at Discharge Home Medications albuterol sulfate 2 puff INHALATION Q4H PRN PRN 06/16/13 omeprazole 20 mg PO DAILY 06/16/13 pravastatin 20 mg PO QHS 06/16/13 calcium citrate-vitamin D3 2 tab PO DAILY 10/24/18 zolpidem 6.25 mg PO QHS PRN PRN 03/24/19 anastrozole 1 mg PO DAILY 90 Days #90 tab 12/31/19 apixaban 5 mg tablet 5 mg PO BID #180 tab 07/18/20 lisinopril 10 mg-hydrochlorothiazide 12.5 mg tablet 1 tab PO DAILY 08/22/20 Prolia 60 mg SUBCUT .[id number] 11/25/20 acetaminophen 1,300 mg PO DAILY PRN 11/25/20 hydrocodone-acetaminophen 1 tab PO TID 11/25/20 metoprolol tartrate 25 mg PO BID #60 tab 11/30/20 ondansetron HCl [Zofran] 4 mg PO TID #60 tab 11/30/20 Hospital Course Procedures 2-D Echocardiogram Summary of Care Provided Minutes Spent on Discharge: 32 Hospital Course: #Afib with RVR * stable * off cardizem and amiodarone drips * on eliquis * on PO metoprolol 25mg bid * 2D echo: Normal EF of 60% with stage I diastolic dysfunction and mild mitral annular calcification. #History of breast cancer * s/p right mastectomy * on anastrozole * #COPD: not in exacerbation. Breathing treatment with bronchodilators. #GERD: stable. On PPI #Hypertension: on lisinopril. #Hyperlipidemia: on statin #CAD: on metoprolol and statin as well as lisinopril and HCTZ. #DVT prophylaxis: not indicated as she is on eliquis. Nausea: increase PPI to BID.improved. Zofran with meals Physical Exam Const alert Eyes PERRL Resp normal respiratory effort and clear to auscultation bilaterally Cardio regular rate, regular rhythm, S1 normal heart sound and S2 normal heart sound GI normal to inspection, nondistended, normoactive bowel sounds, non-tender and non-distended ABG / Lab / Microbiology Data Result Diagrams: 11/26/20 02:43 11/29/20 20:22 Laboratory: Laboratory Results - last 24 hr 11/29/20 11/29/20 20:22 20:22 Sodium 138 Potassium 4.4 Chloride 105 Carbon Dioxide 29.0 Anion Gap 4 L BUN 14 Creatinine 0.79 Estim Creat Clear Calc 43.07 Est GFR (MDRD) Af Amer 91 Est GFR (MDRD) Non-Af 75 BUN/Creatinine Ratio 17.8 Glucose 139 H Calcium 8.6 Phosphorus 3.6 Magnesium 1.9 Total Bilirubin 0.40 AST 18 ALT 11 L Alkaline Phosphatase 44 L Total Protein 6.1 L Albumin 2.6 L Globulin 3.5 Albumin/Globulin Ratio 0.7 L D/C Instructions Discharge Diet: No restrictions Discharge Activity: Return to Normal Activity Call your doctor if you observe: Fever of 101 or Higher and Shortness of breath Meaningful Use Info Meaningful Use Diagnoses (Choose all that apply): None applicable Discharge Plan Admission Admit Date/Time: 11/25/20 18:28 Attending Provider: Aníbal Driver Primary Care Provider: Jessica Aguero Consulting Providers: Juan Carlos Blackwood Instructions Patient Instructions: ED Chest Pain, Noncardiac Discharge Orders/Prescriptions Prescriptions: New metoprolol tartrate 25 mg Tablet 25 mg PO BID Qty: 60 RF: 0 ondansetron HCl [Zofran] 4 mg tablet 4 mg PO TID Qty: 60 RF: 0 Continued pravastatin 40 MG tablet 20 mg PO QHS RF: 0 omeprazole 20 MG capsule 20 mg PO DAILY RF: 0 albuterol sulfate 1 PUFF inhaler 2 puff INHALATION Q4H PRN PRN (Reason: Asthma) RF: 0 zolpidem 12.5 MG tablet,ext release multiphase 6.25 mg PO QHS PRN PRN (Reason: Insomnia) RF: 0 anastrozole 1 MG tablet 1 mg PO DAILY 90 Days Qty: 90 RF: 3 calcium citrate-vitamin D3 1 EACH tablet 2 tab PO DAILY RF: 0 hydrocodone-acetaminophen 5-325 mg tablet 1 tab PO TID RF: 0 acetaminophen 650 mg Tablet Extended Release 1,300 mg PO DAILY PRN (Reason: Pain) RF: 0 Prolia 60 mg/mL Syringe 60 mg SUBCUT .[id number] RF: 0 Eliquis 5 mg tablet 5 mg PO BID Qty: 180 RF: 3 lisinopril-hydrochlorothiazide 10-12.5 mg tablet 1 tab PO DAILY RF: 0 Discontinued furosemide 20 mg tablet 20 mg PO DAILY PRN (Reason: water pill) RF: 0 diltiazem HCl 180 mg capsule,extended release 24hr 180 mg PO DAILY Qty: 90 RF: 3 Referrals / Follow Up: Jessica Aguero DO [Primary Care Provider] - Disposition Disposition (needs filled in before D/C Order can be placed): Home Health Service Visit Charges Inpatient E&M: 18712 Disch Hosp
--- NOTE | 2020-11-30 14:25 | CASEMGMT ---
ALFONSO called Mena Rasmussen, patient's corrections caseworker with [facility]. ALFONSO let her know patient was discharged today. ALFONSO faxed d/c instructions to Mena. Plan: d/c home with [facility]. Joslyn FATIMA
--- NOTE | 2020-12-01 11:34 | CASEMGMT ---
MCKENNA SOSA Discharge Follow Up Phone Call: STEVE: Laila Strata: 3 Call Date: 12.01.20 Discharge Date: 11.30.20 Time of Call: 1134 Duration: Admitting Dx: afib with RVR and chest pain MCKENNA SOSA completed follow up phone call after recent hospitalization. Pt states she is doing well but cannot get her pill bottles opened. She states she has heard from [facility] but they are not coming until 1430. Pt states she does not know her neighbors to ask for help. Made pt aware to ask SN to open them for her once arrived. Pt states she has a follow up appt scheduled but it is too early in the morning so she needs to change it. Pt has no further questions or concerns at this time.
== END 2020-11-30 13:00 | disposition home health service (06) | DRG 310 ==
LOC: ED 16:18 → PCU 19:29
PROVIDERS: Nurse Practitioner Family; Student in an Organized Health Care Education/Training Program; Admitting Provider Family Medicine; Emergency Provider Emergency Medicine; PCP Internal Medicine
DX: I48.0 Paroxysmal atrial fibrillation (principal); J44.9 Chronic obstructive pulmonary disease, unspecified; K21.9 Gastro-esophageal reflux disease without esophagitis; I10 Essential (primary) hypertension; E78.5 Hyperlipidemia, unspecified; I25.10 Atherosclerotic heart disease of native coronary artery without angina pectoris; R11.0 Nausea; Z85.3 Personal history of malignant neoplasm of breast; Z90.11 Acquired absence of right breast and nipple; F32.9 Major depressive disorder, single episode, unspecified; Z79.02 Long term (current) use of antithrombotics/antiplatelets; Z79.899 Other long term (current) drug therapy
CPT/HCPCS: 36415; 71045; 80048; 80053; 83735; 84100; 84484; 85025; 93005; 93306; 94640; 97110; 97162; 97166; 97530; 97535; 97802; 97803; 99285; J7030; Q9957; A4216; J2405

== ENCOUNTER → 2020-12-21 10:32 | Outpatient (CLI) | payer MEDICARE, MEDICAID, SELFPAY ==
[2020-12-21 09:29] VITALS: BMI 32.1
[2020-12-21 11:44] LABS: Anion Gap 4 (5-15); BUN 22 mg/dL (7-18); BUN/Creat Ratio 23.8 RATIO (10-20); Calcium,Total 9.1 mg/dL (8.5-10.1); Chloride 103 mmol/L (98-107); Creatinine, Serum 0.92 mg/dL (0.55-1.02); EST Glomerular Filtration Rate 63 mL/min (>60); Est Glom Filt Rate - Afr Amer 76 mL/min (>60); Glucose 154 mg/dL (74-106); Potassium 4.2 mmol/L (3.5-5.1); Sodium Level 138 mmol/L (136-145)
== END ==
PROVIDERS: PCP Internal Medicine; Referring Provider Physician Assistant Medical; Visit Provider Physician Assistant Medical
DX: I48.91 Unspecified atrial fibrillation (principal)
CPT/HCPCS: 36415; 80048

== ENCOUNTER 2021-02-06 18:49 | Inpatient (IN) | payer MEDICARE, MEDICAID, SELFPAY ==
[2020-12-21 09:29] VITALS: BMI 32.1
[2021-02-06] VITALS (18 sets, daily range): BP systolic 100–147; BP diastolic 52–87; PULSE 92–163; RESP 18–26; TEMP 36.3–37; O2SAT 92–98; BMI 31.8; BMI 32.1
--- NOTE | 2021-02-06 18:57 | EKG12_ITS ---
Test Reason : PALPS Blood Pressure : / mmHG Vent. Rate : 134 BPM Atrial Rate : 100 BPM P-R Int : 000 ms QRS Dur : 078 ms QT Int : 320 ms P-R-T Axes : 000 020 030 degrees QTc Int : 477 ms Atrial fibrillation Nonspecific ST and T wave abnormality Abnormal ECG Confirmed by AYANA GONZALEZ, JORGE ([id number]), editorial clerk ALEXEY BILLINGS ([id number]) on 02/08/2021 12:36:33 PM Referred By: LUCI Confirmed By:JORGE PIÑA MD
--- NOTE | 2021-02-06 19:38 | RAD_ITS ---
STUDY: X-RAY CHEST REASON FOR EXAM: Female, 75 years old. Chest pain. TECHNIQUE: Single AP portable view of the chest. COMPARISON: 11/25/2020. FINDINGS: The lungs are clear and expanded. There is no demonstrated pleural abnormality. Stable borderline cardiomegaly. Normal mediastinum and kwaku. Normal visualized pulmonary arteries. There is atherosclerotic calcification of the aortic arch with tortuosity. There are diffuse degenerative changes of the visualized thoracic spine. There is degenerative osteoarthritis of the bilateral shoulders. There is no demonstrated abnormality of the visualized soft tissue structures of the upper abdomen. RAD/Chest 1 View (Portable) IMPRESSION: Borderline cardiomegaly without acute pulmonary disease or major interval change. Electronically Signed: Khanh Gaitan DO at 20:26 EDT Tel [phone], Service support ,
[2021-02-06 19:41] LABS: Anion Gap 6 (5-15); BUN 20 mg/dL (7-18); BUN/Creat Ratio 25.3 RATIO (10-20); Calcium,Total 8.4 mg/dL (8.5-10.1); Chloride 107 mmol/L (98-107); Creatinine, Serum 0.79 mg/dL (0.55-1.02); EST Glomerular Filtration Rate 75 mL/min (>60); Est Glom Filt Rate - Afr Amer 91 mL/min (>60); Estimated Creatinine Clearance 42.39 ml/min; Glucose 128 mg/dL (74-106); Potassium 3.7 mmol/L (3.5-5.1); Sodium Level 142 mmol/L (136-145); Troponin-I HS 8.6 pg/mL (3.0-53.7)
[2021-02-06 19:56] LABS: Absolute Lymphocyte Count 1.07 X10^3/uL (0.83-4.51); Absolute Neutrophil Count 5.6 X10^3/uL (2.0-7.7); Basophil# 0.03 X10^3/uL; Basophil% 0.4 % (0-1); Eosinophils% 2.6 % (0-5); Hematocrit 37.6 % (37-47); Lymphocyte # 1.07 X10^3/ul (0.83-4.51); Lymphocyte % 13.8 % (19-41); Mean Corp Hgb Conc 31.9 g/dL (32-36); Mean Corpuscular Hgb 30.2 pg (27.0-32.0); Mean Corpuscular Volume 94.7 fL (81-99); Mean Platelet Vol. 9.4 fl (6.2-12.0); Monocyte# 0.84 X10^3/uL; Monocyte% 10.8 % (0-10); NRBC Flagged by Analyzer 0 % (0-5); Neutrophil % 71.9 % (47-70); Platelet Count 245 K/mm3 (150-450); RBC Distribution Width CV 12.4 % (11.6-14.6); Red Blood Count 3.97 M/mm3 (4.2-5.4); White Blood Count 7.8 K/mm3 (4.4-11.0)
[2021-02-06] MEDS: dilTIAZem 25 MG/5 ML Vial 20 MG IV BOLUS ×2 (19:57→20:29)
--- NOTE | 2021-02-06 20:23 | EDS_ITS ---
HPI History of Present Illness Chief Complaint: Chest Pain Informant: patient Onset/Context/Timing Onset: Today Context: Sudden Onset Timing: Continuous Current Severity: Moderate Maximum Severity: Severe Worsened by: Activity Relieved by: Nothing Associated Symptoms Associated Symptoms: Palpitations and smothering sensation with dyspnea on exertion Narrative Narrative: Patient was recently admitted for A. fib RVR. Patient was not cardioverted. She is on an anticoagulant. She denies fever, chills night sweats. She denies heat or cold intolerance. She denies weight gain or weight loss. She does have history of coronary artery disease. She does have history of PE and DVT as well. She denies leg pain, swelling discoloration compared to normal. She denies black or maroon-colored stool. She does have 2 pillow orthopnea. The reason she presents because of the smothering sensation in her heart going fast. Prior similar symptoms: Yes Recent Illness/Hospitalization: Yes PFSH PFSH Medical History Atherosclerotic heart disease of [place] coronary artery without angina pectoris Atrial fibrillation Atrial fibrillation CAD (coronary artery disease) Chronic pain COPD (chronic obstructive pulmonary disease) Essential hypertension GERD (gastroesophageal reflux disease) Hx of deep vein thrombophlebitis of lower extremity Hyperlipidemia Insomnia Obesity Obstructive sleep apnea Osteoarthritis Osteoporosis Paroxysmal atrial fibrillation Paroxysmal atrial tachycardia Personal history of pulmonary embolism port placement PORT REMOVAL Pure hypercholesterolemia PVD (peripheral vascular disease) Rectal prolapse Home Medications albuterol sulfate 2 puff INHALATION Q4H PRN PRN 06/16/13 [History Last Taken 10/01/17 08:00] omeprazole 20 mg PO DAILY 06/16/13 [History Last Taken 11/25/20] calcium citrate-vitamin D3 2 tab PO DAILY 10/24/18 [History Last Taken 11/25/20] zolpidem 6.25 mg PO QHS PRN PRN 03/24/19 [History Last Taken 11/24/20] apixaban 5 mg tablet 5 mg PO BID #180 tab 07/18/20 [Rx Last Taken 11/25/20] Prolia 60 mg SUBCUT .[id number] 11/25/20 [History Last Taken 11/16/20] acetaminophen 1,300 mg PO DAILY PRN 11/25/20 [History Last Taken 11/25/20] hydrocodone-acetaminophen 1 tab PO TID 11/25/20 [History Last Taken 11/24/20] ondansetron HCl [Zofran] 4 mg PO TID #60 tab 11/30/20 [Rx Last Taken Unknown] lisinopril 10 mg-hydrochlorothiazide 12.5 mg tablet 1 tab PO DAILY #180 tab 12/21/20 [Rx Last Taken Unknown] metoprolol tartrate 25 mg tablet 25 mg PO BID #180 tab 12/21/20 [Rx Last Taken Unknown] pravastatin 20 mg tablet 40 mg PO QHS tab 12/21/20 [History Last Taken Unknown] anastrozole 1 mg tablet 1 mg PO DAILY 90 Days #90 tab 01/04/21 [Rx Last Taken Unknown] Allergy/AdvReac Type Severity Reaction Status Date / Time niacin Allergy Intermediate I DON'T Verified 02/06/21 18:57 REMEMBER, I CAN'T TAKE IT bee stings Allergy Swelling Uncoded 02/06/21 18:57 Family History Brother Diabetes Heart disease Sister Breast cancer Mother Cancer brain and bone mets Aunt Breast cancer Grandmother Cancer Surgical History History of appendectomy History of cholecystectomy History of incisional hernia repair Hx of mastectomy S/P appendectomy S/P carpal tunnel release S/P cataract extraction S/P hysterectomy S/P lumbar discectomy S/P partial thyroidectomy S/P revision of total knee S/P right breast biopsy S/P total knee replacement Social History (Updated 02/06/21 @ 20:[address] Yovani Fischer MD) household members: none Smoking Status: Never smoker alcohol intake: never substance use type: does not use caffeine: No ROS ROS ED Constitutional Constitutional ED: Denies chills, fever(s), subjective or sweats Eyes Eyes: Denies blurry vision, change in vision or diplopia ENT ENT ED: Denies ear pain, rhinorrhea or sore throat Cardiovascular Cardiovascular: Reports chest pain, orthopnea, palpitations and racing heartbeat; Denies paroxysmal nocturnal dyspnea Respiratory/Chest Respiratory/Chest: Reports dyspnea, dyspnea on exertion and orthopnea; Denies cough, paroxysmal nocturnal dyspnea or sputum Gastrointestinal Gastrointestinal: Denies abdominal pain, constipation, melena, nausea or vomiting Genitourinary Genitourinary ED: Denies dysuria, hematuria or urinary frequency Musculoskeletal Musculoskeletal: Denies arthralgias, back pain or myalgias Neurologic Neurologic: Denies headache(s), paresthesias or weakness Endocrine Endocrinology: Denies polydipsia, polyphagia or polyuria Allergic/Immunologic Allergic/Immunologic ED: Denies mouth swelling, tongue swelling or urticaria EXAM Physical Exam Const Vital Signs: 02/06/21 18:54 02/06/21 19:12 02/06/21 19:28 Temperature 97.3 F L Temperature Source Temporal Pulse Rate 133 H 134 H Respiratory Rate 19 H 20 H Blood Pressure 147/87 H 135/70 H Blood Pressure Mean 107 91 Blood Pressure Source Pulse Ox 92 95 94 Oxygen Delivery Method Room Air Nasal Cannula Room Air Oxygen Flow Rate (L/min) 2 02/06/21 19:56 02/06/21 19:59 02/06/21 20:00 Temperature Temperature Source Pulse Rate 163 H 131 H 134 H Respiratory Rate 21 H 20 H Blood Pressure 132/76 H 132/76 H Blood Pressure Mean 94 94 Blood Pressure Source Pulse Ox 95 94 Oxygen Delivery Method Room Air Room Air Oxygen Flow Rate (L/min) 02/06/21 20:11 Temperature Temperature Source Pulse Rate 134 H Respiratory Rate 23 H Blood Pressure 132/76 H Blood Pressure Mean 94 Blood Pressure Source Monitor Pulse Ox 98 Oxygen Delivery Method Oxygen Flow Rate (L/min) Positive well nourished, well developed and obese General Appearance ED: well developed Nutritional Appearance: obese HEENT Reports TM's clear and moist mucous membranes HEENT Narrative: Face is symmetric. Nares patent. Posterior pharynx erythema or exudate. Tympanic Membrane ED: Yes TM's clear Eyes PERRL and EOMs intact bilaterally General Eye ED: Negative for pale conjunctiva or scleral icterus Neck no lymphadenopathy, supple and no JVD Chest Wall inspection of chest normal Resp normal respiratory effort and clear to auscultation bilaterally Cardio no murmurs Rate: tachycardic GI normal to inspection, nondistended, normoactive bowel sounds, non-tender and non-distended Palpation: soft Back/Spine no CVA tenderness Cervical Spine: Negative for cervical spine tenderness Thoracic Spine / Upper Back: Negative for thoracic spinal tenderness or paraspinal muscle tenderness Lumbar Spine / Lower Back: Negative for lumbar spinal tenderness Extremity normal to inspection General Extremety ED: Yes edema; Negative for tenderness General Extremity: edema Neuro oriented x3 and CN's II-XII intact bilaterally Sensorium / Orientation: alert Sensory Exam: sensory level loss detected Motor Exam: strength 5/5 throughout Psych mental status grossly normal Skin no rashes or lesions noted and no wounds MDM MDM MDM Narrative Medical decision making narrative: Prior records were reviewed. She was treated with Cardizem drip. She did require amiodarone drip. She was in A. fib when she was discharged and reason cardioversion was not attempted. Blood work was obtained to rule out cardiac ischemia, anemia renal dysfunction. She was tr eated with Cardizem bolus and drip. She required additional bolus since she is still tachycardic at 127. Lab Data Labs: Laboratory Results - last 24 hr 02/06/21 02/06/21 19:15 19:15 WBC 7.8 RBC 3.97 L Hgb 12.0 Hct 37.6 MCV 94.7 MCH 30.2 MCHC 31.9 L RDW Std Deviation 43.0 RDW Coeff of Jenna 12.4 Plt Count 245 MPV 9.4 Immature Gran % (Auto) 0.500 Neut % (Auto) 71.9 H Lymph % (Auto) 13.8 L Dickens % (Auto) 10.8 H Eos % (Auto) 2.6 Baso % (Auto) 0.4 Absolute Neuts (auto) 5.6 Absolute Lymphs (auto) 1.07 Nucleated RBC % 0 Sodium 142 Potassium 3.7 Chloride 107 Carbon Dioxide 29.0 Anion Gap 6 BUN 20 H Creatinine 0.79 Estim Creat Clear Calc 42.39 Est GFR (MDRD) Af Amer 91 Est GFR (MDRD) Non-Af 75 BUN/Creatinine Ratio 25.3 H Glucose 128 H Calcium 8.4 L Troponin I High Sens 8.6 Radiography Chest X-Ray - ED: 1 View, Read by ED Physician, Lungs, Mediastinum, Bony Structures, Chronic Changes and Cardiomegaly (Borderline cardiomegaly) Diagnostic Testing: Radiology Impression Chest X-Ray 02/06/21 19:38 IMPRESSION: Borderline cardiomegaly without acute pulmonary disease or major interval change. Electronically Signed: Khanh Gaitan DO at 20:26 EDT Tel [phone], Service support , Rhythm Strip Rhythm Strip: A-fib Rate: 167 Ectopy: PVC(s) EKG Initial EKG: Attestation: I personally reviewed and interpreted this EKG as follows: Interpretation: Atrial Fibrillation (Atrial fibrillation with ventricular rate of 134. QRS duration 78 ms. QT duration 320 ms. [place] is normal. There is no ossific ST-T wave changes noted. This may be rate dependent.) Critical Care Time Critical care time (excluding procedures): 30-74 minutes (36 minutes), Including time spent: (History, physical exam, documentation, review of prior records, initiation of therapy and interpretation of laboratory results), Discussing w/Patient &/or Family/Outreach Representative, Discussing w/Consultants and Arranging Admission or Transfer Discharge Plan Dx/Rx/DC Orders Clinical Impression: Atrial fibrillation with rapid ventricular response Disposition Disposition: Acute Care [facility]
--- NOTE | 2021-02-06 21:30 | PCM.HP.STD ---
HPI - General General Date of Admission: 02/06/21 HPI Narrative ALLISON MAHER, is a 75 F with a significant history of breast cancer status post mastectomy; CAD; DVT; and PE status post Jody filter who presents to emergency department with palpitation that started several hours before presentation. Associated with her symptom is shortness of breath; weakness; and the feeling of smothering. Reportedly while talking to home health agency over the phone she was having dysarthria. She called 911 and was brought to emergency department. At the emergency department her heart rate was 162 and she was in A. fib with rapid response. EKG showed a rate of around 136. Patient received a Cardizem bolus and was placed on a drip. Importantly in November 2020 patient was admitted for A. fib with RVR at our Hospital ([facility]). On that admission he was placed on amiodarone drip and Cardizem drip. [facility] Medical History Atherosclerotic heart disease of [place] coronary artery without angina pectoris Atrial fibrillation Atrial fibrillation CAD (coronary artery disease) Chronic pain COPD (chronic obstructive pulmonary disease) Essential hypertension GERD (gastroesophageal reflux disease) Hx of deep vein thrombophlebitis of lower extremity Hyperlipidemia Insomnia Obesity Obstructive sleep apnea Osteoarthritis Osteoporosis Paroxysmal atrial fibrillation Paroxysmal atrial tachycardia Personal history of pulmonary embolism port placement PORT REMOVAL Pure hypercholesterolemia PVD (peripheral vascular disease) Rectal prolapse Home Medications albuterol sulfate 2 puff INHALATION Q4H PRN PRN 06/16/13 [History Last Taken 10/01/17 08:00] omeprazole 20 mg PO DAILY 06/16/13 [History Last Taken 02/06/21] calcium citrate-vitamin D3 2 tab PO DAILY 10/24/18 [History Last Taken 02/06/21] zolpidem 6.25 mg PO QHS PRN PRN 03/24/19 [History Last Taken 02/05/21] Prolia 60 mg SUBCUT .[id number] 11/25/20 [History Last Taken 11/16/20] acetaminophen 1,300 mg PO DAILY PRN 11/25/20 [History Last Taken 02/05/21] hydrocodone-acetaminophen 1 tab PO TID 11/25/20 [History Last Taken 02/06/21] metoprolol tartrate 25 mg tablet 25 mg PO BID #180 tab 12/21/20 [Rx Last Taken 02/06/21] anastrozole 1 mg tablet 1 mg PO DAILY 90 Days #90 tab 01/04/21 [Rx Last Taken 02/06/21] apixaban [Eliquis] 5 mg PO BID 02/06/21 [History Last Taken 02/06/21] lisinopril-hydrochlorothiazide 1 tab PO DAILY 02/06/21 [History Last Taken 02/06/21] ondansetron HCl [Zofran] 4 mg PO TID 02/06/21 [History Last Taken Unknown] pravastatin 20 mg PO QHS 02/06/21 [History Last Taken 1 Week Ago ~01/30/21] Allergy/AdvReac Type Severity Reaction Status Date / Time niacin Allergy Intermediate I DON'T Verified 02/06/21 18:57 REMEMBER, I CAN'T TAKE IT bee stings Allergy Swelling Uncoded 02/06/21 18:57 Family History Brother Diabetes Heart disease Sister Breast cancer Mother Cancer brain and bone mets Aunt Breast cancer Grandmother Cancer Surgical History History of appendectomy History of cholecystectomy History of incisional hernia repair Hx of mastectomy S/P appendectomy S/P carpal tunnel release S/P cataract extraction S/P hysterectomy S/P lumbar discectomy S/P partial thyroidectomy S/P revision of total knee S/P right breast biopsy S/P total knee replacement Social History household members: none Smoking Status: Never smoker alcohol intake: never substance use type: does not use caffeine: No ROS ROS Narrative 12 point review of system is negative except as stated in HPI. Vital Signs Vital Signs Vital Signs: 02/06/21 18:54 02/06/21 19:12 02/06/21 19:28 Temperature 97.3 F L Temperature Source Temporal Pulse Rate 133 H 134 H Respiratory Rate 19 H 20 H Blood Pressure 147/87 H 135/70 H Blood Pressure Mean 107 91 Blood Pressure Source Pulse Ox 92 95 94 Oxygen Delivery Method Room Air Nasal Cannula Room Air Oxygen Flow Rate (L/min) 2 02/06/21 19:56 02/06/21 19:59 02/06/21 20:00 Temperature Temperature Source Pulse Rate 163 H 131 H 134 H Respiratory Rate 21 H 20 H Blood Pressure 132/76 H 132/76 H Blood Pressure Mean 94 94 Blood Pressure Source Pulse Ox 95 94 Oxygen Delivery Method Room Air Room Air Oxygen Flow Rate (L/min) 02/06/21 20:11 02/06/21 21:09 Temperature 97.8 F Temperature Source Temporal Pulse Rate 134 H 92 Respiratory Rate 23 H 24 H Blood Pressure 132/76 H 129/52 H Blood Pressure Mean 94 77 Blood Pressure Source Monitor Pulse Ox 98 96 Oxygen Delivery Method Room Air Oxygen Flow Rate (L/min) Weight Weight: 86.636 kg Body Mass Index (BMI) 31.8 Physical Exam Narrative Physical exam: General: Well-nourished, well-developed, no acute distress Head: Normocephalic, atraumatic, no tenderness Eyes: PERRLA, EOMI ENT, no trauma, moist mucous membranes, no rhinorrhea Neck: Nontender, full range of motion, no spinal tenderness, deformities, step-off CVS: Irregularly irregular rate and rhythm. Respiratory no acute distress, clear to auscultation bilaterally, chest wall nontender, no wheezing Abdomen: Soft, nontender, nondistended, normal bowel sounds, no masses : Deferred Extremities: Edema bilateral lower legs, 3+ Skin: Normal color, no trauma, abrasions Neuro: Alert, oriented, cranial nerves II through XII grossly intact. Results Lab / Micro Data Result Diagrams: 02/06/21 19:15 02/06/21 19:15 Labs: Laboratory Results - last 24 hr 02/06/21 19:15: WBC 7.8, RBC 3.97 L, Hgb 12.0, Hct 37.6, MCV 94.7, MCH 30.2, MCHC 31.9 L, RDW Std Deviation 43.0, RDW Coeff of Jenna 12.4, Plt Count 245, MPV 9.4, Immature Gran % (Auto) 0.500, Neut % (Auto) 71.9 H, Lymph % (Auto) 13.8 L, [place] % (Auto) 10.8 H, Eos % (Auto) 2.6, Baso % (Auto) 0.4, Absolute Neuts (auto) 5.6, Absolute Lymphs (auto) 1.07, Nucleated RBC % 0 02/06/21 19:15: Sodium 142, Potassium 3.7, Chloride 107, Carbon Dioxide 29.0, Anion Gap 6, BUN 20 H, Creatinine 0.79, Estim Creat Clear Calc 42.39, Est GFR (MDRD) Af Amer 91, Est GFR (MDRD) Non-Af 75, BUN/Creatinine Ratio 25.3 H, Glucose 128 H, Calcium 8.4 L, Troponin I High Sens 8.6 Rhythm Strip Rhythm Strip: A-fib Rate: 167 Ectopy: PVC(s) Radiology Impression Chest X-Ray 02/06/21 19:38 IMPRESSION: Borderline cardiomegaly without acute pulmonary disease or major interval change. Electronically Signed: Khanh Gaitan DO at 20:26 EDT Tel [phone], Service support , Assessment & Plan Assessment/Plan (1) Atrial fibrillation with RVR: PLAN: A. fib with rapid ventricular response. Place on PCU on telemetry EKG independently reviewed showed A. fib with rapid ventricular response. Radiologist impression of chest x-ray: Borderline cardiomegaly without acute pulmonary disease or major interval change. Current chest x-ray and previous chest x-ray was independently interpreted and I agree radiologist interpretation. Review of imaging department labs showed that initial cardiac enzymes was negative. Serial cardiac enzymes Review of records show that echocardiogram was obtained on 11/26/2020. Echocardiogram at that time showed estimated ejection fraction of 60% with stage I diastolic dysfunction. For rate control continue Cardizem drip started emergency department and titrate as appropriate. We will escalate home metoprolol from 25 mg p.o. twice daily to 50 mg p.o. p.o. twice daily. Imaging department labs reviewed showed potassium of 3.7. Supplement potassium and check magnesium level. Home Eliquis continued. Since this is patient's repeat visit in 2 months we will consult cardiology. Hypertension Blood pressure is stable on Cardizem drip. Continue home lisinopril and hydrochlorthiazide. Home metoprolol escalated as above. Trend blood pressure and adjust blood pressure medications. Bilateral lower extremity edema Elevate bilateral lower extremities. Eros wrap to bilateral lower extremities. DVT prophylaxis: Not indicated since patient is on Eliquis; Eliquis continued. Charges/Coding Visit Charges Inpatient E&M: 92183 Init Hosp L3
[2021-02-06 21:38] LABS: Magnesium 2.1 mg/dL (1.6-2.6)
--- NOTE | 2021-02-06 21:56 | EKG12_ITS ---
Test Reason : ADMISSION Blood Pressure : / mmHG Vent. Rate : 118 BPM Atrial Rate : 136 BPM P-R Int : 000 ms QRS Dur : 078 ms QT Int : 368 ms P-R-T Axes : 000 023 025 degrees QTc Int : 515 ms Atrial fibrillation Abnormal ECG Confirmed by AYANA GONZALEZ, JORGE ([id number]), metropolitan editor ALEXEY BILLINGS ([id number]) on 02/08/2021 12:44:32 PM Referred By: ISMAEL Confirmed By:JORGE PIÑA MD
[2021-02-06] MEDS: Potassium Chloride Oral Tablet 10 MEQ 30 MEQ PO (22:45)
[2021-02-06] MEDS: HYDROcodone Bitartrate/Apap 5/325 Tablet PO (22:45)
[2021-02-06] MEDS: Pravastatin 20 MG Tablet PO (22:46)
[2021-02-06] MEDS: APIXABAN 5 MG TABLET PO (22:46)
[2021-02-06] MEDS: Metoprolol Tartrate 50 MG Tablet PO (22:47)
[2021-02-06] MEDS: Zolpidem Tartrate 5 MG Tablet PO (22:51)
[2021-02-06] MEDS: CLARIFY ORDER 1 EACH NOTE (23:47)
[2021-02-07] VITALS (31 sets, daily range): BP systolic 100–136; BP diastolic 52–97; PULSE 65–115; RESP 15–23; TEMP 36.6–37.3; O2SAT 93–98
[2021-02-07 01:24] LABS: Hematocrit 35.4 % (37-47); Hemoglobin 11.4 g/dL (12.0-15.0); Mean Corp Hgb Conc 32.2 g/dL (32-36); Mean Corpuscular Hgb 30.4 pg (27.0-32.0); Mean Corpuscular Volume 94.4 fL (81-99); Mean Platelet Vol. 8.9 fl (6.2-12.0); Platelet Count 221 K/mm3 (150-450); RBC Distribution Width CV 12.3 % (11.6-14.6); RBC Distribution Width SD 42.5 fl (35.1-43.9); Red Blood Count 3.75 M/mm3 (4.2-5.4); White Blood Count 8.2 K/mm3 (4.4-11.0)
[2021-02-07 01:45] LABS: Anion Gap 7 (5-15); BUN 20 mg/dL (7-18); BUN/Creat Ratio 28.4 RATIO (10-20); Calcium,Total 8.1 mg/dL (8.5-10.1); Chloride 106 mmol/L (98-107); EST Glomerular Filtration Rate 86 mL/min (>60); Est Glom Filt Rate - Afr Amer 104 mL/min (>60); Estimated Creatinine Clearance 42.39 ml/min; Glucose 135 mg/dL (74-106); Potassium 3.6 mmol/L (3.5-5.1); Sodium Level 141 mmol/L (136-145); Troponin-I HS 23.3 pg/mL (3.0-53.7)
--- NOTE | 2021-02-07 02:39 | NURSING ---
Attempted to talk to pt about placing MONTRELL wraps to BLE d/t swelling, pt states I don't want my feet covered, how am I supposed to walk?My legs have been swollen like this before. Pt cont argues w/this RN, MONTRELL wraps not applied.
[2021-02-07] MEDS: APIXABAN 5 MG TABLET PO ×2 (08:32→22:24)
[2021-02-07] MEDS: Anastrozole 1 MG TABLET PO (08:33)
[2021-02-07] MEDS: Metoprolol Tartrate 50 MG Tablet PO (08:33)
[2021-02-07] MEDS: Pantoprazole Sodium 20 MG Tablet PO (08:33)
[2021-02-07] MEDS: Calcium Carb/Vitamin D 1 TABLET Tablet PO (08:37)
[2021-02-07] MEDS: hydroCHLOROthiazide 12.5mg 12.5 MG PO (08:37)
[2021-02-07] MEDS: Lisinopril 10 MG Tablet PO (08:38)
--- NOTE | 2021-02-07 08:44 | EKG12_ITS ---
Test Reason : 2 HOURS S/O SOTALOL Blood Pressure : / mmHG Vent. Rate : 071 BPM Atrial Rate : 071 BPM P-R Int : 236 ms QRS Dur : 084 ms QT Int : 440 ms P-R-T Axes : 096 007 044 degrees QTc Int : 478 ms Sinus rhythm with 1st degree A-V block Inferior-posterior infarct , age undetermined Abnormal ECG When compared with ECG of 06-FEB-2021 23:38, MANUAL COMPARISON REQUIRED, DATA IS UNCONFIRMED Confirmed by MISTY GONZALEZ, JILL ([id number]), photographic editor ALEXEY BILLINGS ([id number]) on 02/10/2021 10:26:02 AM Referred By: AYANA Confirmed By:JILL JAY MD
--- NOTE | 2021-02-07 08:46 | CON.PCM.CA_ITS ---
Assessment & Plan Assessment/Plan (1) Atrial fibrillation with rapid ventricular response: PLAN: The patient has a history of paroxysmal atrial fibrillation. She has been on and off different rate limiting medications. She has been on and off amiodarone therapy. She has continued anticoagulant therapy. She presents with another recurrent event (most recent event requiring hospitalization was in November 2020). At the present time it appears she is on IV diltiazem. She is noted to have atrial fibrillation with intermittent episodes of sinus rhythm. Her troponin I levels have been negative. Her ECG is not demonstrated any new acute ECG changes. Her previous noninvasive and invasive studies are as noted. At the present time it would be reasonable to continue to monitor her rate and rhythm. It would be reasonable to continue to adjust medications. Based upon her recurrent episodes of PAF it may be reasonable to consider an attempt at an alternative antiarrhythmic therapy (there is a question as to whether or not she had any adverse interaction between her previous amiodarone therapy and her thyroid function based upon a low TSH level). Thus it may be reasonable to consider an alternative agent such as sotalol/Betapace noting that she does not appear to have prolonged QRS/QT intervals, has not been reported as having wide- complex dysrhythmias, and has preserved left ventricular wall motion and systolic function. She would need to be monitored in the hospital during initiation of her antiarrhythmic agents including follow-up ECGs and BMP. 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 transplanted heart: syc[place] heart Qualified Code(s): I25.10 - Atherosclerotic heart disease of sycuan coronary artery without angina pectoris PLAN: The patient has a history of nonangiographically significant CAD as previously noted. She has undergone follow-up studies over time with both echocardiograms which have demonstrated no left ventricular wall motion abnormalities and exercise tolerance test/imaging study which is demonstrated no obvious evidence of stress-induced myocardial ischemia. At the present time she will continue evaluation care of her paroxysmal atrial fibrillation as noted. (3) Pure hypercholesterolemia: PLAN: The patient should continue risk factor evaluation and care as deemed appropriate. (4) Essential hypertension: PLAN: The patient's blood pressure will need to be monitored and her medic jessica adjusted accordingly. Addt'l Comments The above was discussed and reviewed with the patient. She was agreeable to this approach. This note was generated using a voice recognition system and there may be incorrect words, spelling or punctuation that were not noted when reviewing the office note prior to saving. HPI Consult Data Date of Consult: 02/07/21 HPI Narrative Reason for Consultation: PAF HPI Narrative: ALLISON MAHER, is a 75 year old white female who presents for recurrent paroxysmal atrial fibrillation superimposed upon a history of CAD (none angiographically significant), hyperlipidemia, hypertension, remote thromboembolic disease/DVT/PE, COPD, KWABENA, and breast carcinoma. The patient states that yesterday evening she noted her atrial fibrillation to return based upon her sensation of palpitations and rapid heart rates associated with an uncomfortable sensation in her chest as well as feeling somewhat more short of breath. She summoned the EMS and was subsequently brought to [facility] for further evaluation. There she was found to be in atrial fibrillation with RVR. She had a negative troponin I level. Her ECG did not demonstrate any other new acute ECG changes. Her chest x-ray is as noted below. She was treated with IV diltiazem. She was subsequently placed in the PCU for further evaluation and care. She is noted on cardiac engine monitor this a.m. to have slowing of her heart rate and episodes of sinus rhythm and then returned to atrial fibrillation. She has denied any other forms of ongoing chest discomfort at rest or with exertion. She denies orthopnea, PND, or worsening peripheral pitting edema. There has been no near syncope or syncope. She underwent evaluation in November of this year for recurrent atrial fibrillation. At that time she had a transthoracic echocardiogram performed. The results are noted below. She has also undergone previous noninvasive evaluation with exercise tolerance test/imaging study in 2019. The results are noted below as well. She has had a remote diagnostic cardiac catheterization performed on 03-10-2001 in [place], [place]. At that time per the report she had minor CAD involving the dominant RCA and normal left ventricular gram. The patient has been on medical therapy which is included both beta-blockers and calcium channel antagonist. She has been off and on IV amiodarone therapy and oral amiodarone therapy. She does not recall being on any other antiarrhythmic therapy in the past. [facility], [facility] Medical History Atherosclerotic heart disease of sycuan coronary artery without angina pectoris Atrial fibrillation Atrial fibrillation CAD (coronary artery disease) Chronic pain COPD (chronic obstructive pulmonary disease) Essential hypertension GERD (gastroesophageal reflux disease) Hx of deep vein thrombophlebitis of lower extremity Hyperlipidemia Insomnia Obesity Obstructive sleep apnea Osteoarthritis Osteoporosis Paroxysmal atrial fibrillation Paroxysmal atrial tachycardia Personal history of pulmonary embolism port placement PORT REMOVAL Pure hypercholesterolemia PVD (peripheral vascular disease) Rectal prolapse Home Medications albuterol sulfate 2 puff INHALATION Q4H PRN PRN 06/16/13 [History Last Taken 10/01/17 08:00] omeprazole 20 mg PO DAILY 06/16/13 [History Last Taken 02/06/21] calcium citrate-vitamin D3 2 tab PO DAILY 10/24/18 [History Last Taken 02/06/21] zolpidem 6.25 mg PO QHS PRN PRN 03/24/19 [History Last Taken 02/05/21] Prolia 60 mg SUBCUT .[id number] 11/25/20 [History Last Taken 11/16/20] acetaminophen 1,300 mg PO DAILY PRN 11/25/20 [History Last Taken 02/05/21] hydrocodone-acetaminophen 1 tab PO TID 11/25/20 [History Last Taken 02/06/21] metoprolol tartrate 25 mg tablet 25 mg PO BID #180 tab 12/21/20 [Rx Last Taken 02/06/21] anastrozole 1 mg tablet 1 mg PO DAILY 90 Days #90 tab 01/04/21 [Rx Last Taken 02/06/21] apixaban [Eliquis] 5 mg PO BID 02/06/21 [History Last Taken 02/06/21] lisinopril-hydrochlorothiazide 1 tab PO DAILY 02/06/21 [History Last Taken 02/06/21] ondansetron HCl [Zofran] 4 mg PO TID 02/06/21 [History Last Taken Unknown] pravastatin 20 mg PO QHS 02/06/21 [History Last Taken 1 Week Ago ~01/30/21] Allergy/AdvReac Type Severity Reaction Status Date / Time niacin Allergy Intermediate I DON'T Verified 02/06/21 18:57 REMEMBER, I CAN'T TAKE IT bee stings Allergy Swelling Uncoded 02/06/21 18:57 Family History Brother Diabetes Heart disease Sister Breast cancer Mother Cancer brain and bone mets Aunt Breast cancer Grandmother Cancer Surgical History History of appendectomy History of cholecystectomy History of incisional hernia repair Hx of mastectomy S/P appendectomy S/P carpal tunnel release S/P cataract extraction S/P hysterectomy S/P lumbar discectomy S/P partial thyroidectomy S/P revision of total knee S/P right breast biopsy S/P total knee replacement Social History household members: none Smoking Status: Never smoker alcohol intake: never substance use type: does not use caffeine: No ROS Constitutional Constitutional: Reports as per HPI Eyes Eyes: Reports as per HPI ENT HEENT: Reports as per HPI Cardiovascular Cardiovascular: Reports chest pain, dyspnea, irregular heart rhythm and palpitations Respiratory/Chest Respiratory/Chest: Reports dyspnea Gastrointestinal Gastrointestinal: Reports as per HPI Genitourinary Genitourinary: Reports as per HPI Musculoskeletal Musculoskeletal: Reports as per HPI Integumentary Integumentary: Reports as per HPI Neurologic Neurologic: Reports as per HPI Physical Exam Narrative The patient is awake and alert and in no acute distress. Const alert, oriented x3 and no apparent distress Orientation / Consciousness: awake HEENT normocephalic, head/scalp atraumatic and hearing grossly normal bilaterally Eyes PERRL, EOMs intact bilaterally and conjunctivae normal Neck full ROM, supple and no JVD Chest inspection of chest normal Resp normal respiratory effort and clear to auscultation bilaterally Cardio regular rate, regular rhythm, S1 normal heart sound and S2 normal heart sound Cardio Narrative: With episodes of an irregular rhythm GI normal to inspection, nondistended, normoactive bowel sounds Extremity no pedal edema Skin no rashes or lesions noted Neuro oriented x3 and moves all extremities Psych mental status grossly normal Procedure Criteria Type of Procedure Procedure Type: Elective Elective Risks - COVID COVID Risk Discussion: The surgeon/proceduralist and patient have discussed in detail the risk of exposure to and/or potential harm posed by the COVID-19 virus with having a surgery/procedure at this time versus the risk of delaying the surgery/procedure. It is not possible to know either the risk of delaying the surgery or procedure or chance of getting an infection with perfect accuracy, bu t a joint decision was made between the patient and the surgeon/proceduralist to proceed at this time with the scheduled surgery/procedure as indicated on the consent form. Objective Data Vital Signs: Vital Signs Temp Pulse Resp BP Pulse Ox 98.8 F 71 17 126/59 H 96 02/07/21 04:00 02/07/21 08:33 02/07/21 08:00 02/07/21 08:00 02/07/21 08:23 Oxygen Flow Rate (L/min) 2 Oxygen Delivery Method Room Air Weight: 193 lb 5.526 oz Body Mass Index (BMI) 32.1 Intake & Output: Intake and Output for Last 24 Hours 02/05/21 02/06/21 02/07/21 23:59 23:59 23:59 Intake Total 126.00 / 141.00 332.50 / 332.50 Balance 126.00 / 141.00 332.50 / 332.50 Lab / Micro Data Result Diagrams: 02/07/21 01:18 02/07/21 01:18 Labs: Laboratory Results - last 24 hr 02/06/21 19:15: WBC 7.8, RBC 3.97 L, Hgb 12.0, Hct 37.6, MCV 94.7, MCH 30.2, MCHC 31.9 L, RDW Std Deviation 43.0, RDW Coeff of Jenna 12.4, Plt Count 245, MPV 9.4, Immature Gran % (Auto) 0.500, Neut % (Auto) 71.9 H, Lymph % (Auto) 13.8 L, Whitley % (Auto) 10.8 H, Eos % (Auto) 2.6, Baso % (Auto) 0.4, Absolute Neuts (auto) 5.6, Absolute Lymphs (auto) 1.07, Nucleated RBC % 0 02/06/21 19:15: Sodium 142, Potassium 3.7, Chloride 107, Carbon Dioxide 29.0, Anion Gap 6, BUN 20 H, Creatinine 0.79, Estim Creat Clear Calc 42.39, Est GFR (MDRD) Af Amer 91, Est GFR (MDRD) Non-Af 75, BUN/Creatinine Ratio 25.3 H, Glucose 128 H, Calcium 8.4 L, Troponin I High Sens 8.6 02/06/21 19:15: Magnesium 2.1 02/07/21 01:18: WBC 8.2, RBC 3.75 L, Hgb 11.4 L, Hct 35.4 L, MCV 94.4, MCH 30.4, MCHC 32.2, RDW Std Deviation 42.5, RDW Coeff of Jenna 12.3, Plt Count 221, MPV 8.9 02/07/21 01:18: Sodium 141, Potassium 3.6, Chloride 106, Carbon Dioxide 28.0, Anion Gap 7, BUN 20 H, Creatinine 0.70, Estim Creat Clear Calc 42.39, Est GFR (MDRD) Af Amer 104, Est GFR (MDRD) Non-Af 86, BUN/Creatinine Ratio 28.4 H, Glucose 135 H, Calcium 8.1 L 02/07/21 01:18: Troponin I High Sens 23.3 Rhythm Strip Rhythm Strip: A-fib Rate: 167 Ectopy: PVC(s) Cardiology Labs/Tests 02/06/21 19:15: WBC 7.8, RBC 3.97 L, Hgb 12.0, Hct 37.6, MCV 94.7, MCH 30.2, MCHC 31.9 L, Plt Count 245, MPV 9.4, Immature Gran % (Auto) 0.500, Neut % (Auto) 71.9 H, Lymph % (Auto) 13.8 L, Whitley % (Auto) 10.8 H, Eos % (Auto) 2.6, Baso % (Auto) 0.4, Absolute Neuts (auto) 5.6, Nucleated RBC % 0 02/06/21 19:15: Sodium 142, Potassium 3.7, Chloride 107, Carbon Dioxide 29.0, Anion Gap 6, BUN 20 H, Creatinine 0.79, Est GFR (MDRD) Af Amer 91, Est GFR (MDRD) Non-Af 75, BUN/Creatinine Ratio 25.3 H, Glucose 128 H, Calcium 8.4 L 02/06/21 19:15: Magnesium 2.1 02/07/21 01:18: WBC 8.2, RBC 3.75 L, Hgb 11.4 L, Hct 35.4 L, MCV 94.4, MCH 30.4, MCHC 32.2, Plt Count 221, MPV 8.9 02/07/21 01:18: Sodium 141, Potassium 3.6, Chloride 106, Carbon Dioxide 28.0, Anion Gap 7, BUN 20 H, Creatinine 0.70, Est GFR (MDRD) Af Amer 104, Est GFR (MDRD) Non-Af 86, BUN/Creatinine Ratio 28.4 H, Glucose 135 H, Calcium 8.1 L Rhythm: Atrial fibrillation with intermittent episodes of sinus rhythm EKG: Atrial fibrillation with RVR ECHO: 11-26-2020 . Interpretation Summary Normal LV size. Left ventricular systolic function is normal. The estimated ejection fraction is 60 %. Stage 1 diastolic dysfunction. Mild (1+) mitral valve insufficiency. There is mild mitral annular calcification. The global longitudinal strain is normal. The global longitudinal strain = -17.1 % (normal). Stress Test Report Date: 03-25-19 Procedure: Pharmacologic stress nuclear imaging study Indications: Chest pain Consent: Per the patient Procedure: The patient underwent pharmacologic (Regadenoson) evaluation with a peak heart rate of 98 beats per minute (67 %predicted maximal heart rate) and a peak blood pressure of 160/70 mmHg. The baseline ECG demonstrated normal sinus rhythm. The peak pharmacologic ECG demonstrated no obvious ECG changes. There were no cardiac dysrhythmias pretest, during pharmacologic infusion, or recovery. There was no complaint of chest discomfort during pharmacologic infusion or recovery. The examination was discontinued secondary to completion of protocol. Impression: 1. Pharmacologic (Regadenoson) evaluation 2. Peak pharmacologic ECG with no obvious ECG changes. 3. There were no cardiac dysrhythmias pretest, during pharmacologic infusion, or recovery. 4. Nuclear images pending Myocardial perfusion imaging study: Technique: The patient was injected with 11.1 millicuries of technetium 99m Cardiolite and subsequently rest SPECT Cardiolite nuclear imaging was obtained in the horizontal long, vertical long, and short axis views. The patient underwent pharmacologic (Regadenoson) evaluation with a peak heart rate of 98 beats per minute (67 % percent predicted maximal heart rate) and a peak blood pressure of 160/70 mmHg. The patient was injected with 32.9 millicuries of technetium 99m Cardiolite and subsequently stress SPECT Cardiolite nuclear imaging was obtained in the horizontal long, vertical long, and short axis views. A gated Cardiolite study at peak stress was obtained. Interpretation: Rest and stress SPECT Cardiolite nuclear imaging status post realignment, normalization, and attenuation correction demonstrate relative uniform tracer uptake and myocardial perfusion appearing within normal limits. There is end systolic thickening and brightening. The gated Cardiolite study demonstrates myocardial thickening and inward wall motion. The reported LVEF is 83 %. Impression: 1. Rest and stress SPECT Cardiolite nuclear imaging demonstrate relative uniform tracer uptake and myocardial perfusion appearing within normal limits. 2. The gated Cardiolite study reports an LVEF of 83 %. Cardiac Cath: 03-10-2001: [place], [place] Left ventricle: All segments of the left ventricle contract normally; there was no gradient across the aortic valve; the mitral valve appeared normal Left main: Free of disease LAD: Free of disease LCx: Free of disease RCA: Dominant: Minor plaque in its proximal third Radiography Diagnostic Testing: Radiology Impression Chest X-Ray 02/06/21 19:38 IMPRESSION: Borderline cardiomegaly without acute pulmonary disease or major interval change. Electronically Signed: Khanh Gaitan DO at 20:26 EDT Tel [phone], Service support ,
--- NOTE | 2021-02-07 08:54 | CCN.REFER ---
PATIENT IS ACTIVE WITH CCN.
--- NOTE | 2021-02-07 09:33 | CASEMGMT ---
Patient is active with [facility] and her counter caser is Mena Leandrojoon Rasmussen ([phone]). Mena is on vacation this week so ALFONSO spoke with someone on the coverage line and let them know about patient's admission. Patient has [facility] aides on Mondays for 4 hours and she gets 5 meals a week delivered by [employer]. Joslyn FATIMA
[2021-02-07 09:38] LABS: AST(SGOT) 7 U/L (15-37); Alanine Aminotransfer ALT/SGPT 17 U/L (13-56); Albumin, Serum 2.9 g/dL (3.2-5.0); Alkaline Phosphatase 37 U/L (45-117); Globulin 2.9 g/dL (2.2-4.2); Protein, Total 5.8 g/dL (6.4-8.2); Thyroid Stim Hormone (TSH) 0.81 uIU/mL (0.358-3.74)
[2021-02-07] MEDS: Sotalol Hydrochloride 80 MG Tablet PO ×2 (10:03→22:24)
--- NOTE | 2021-02-07 10:10 | CASEMGMT ---
MCKENNA SOSA NOTE: Pt screened with [facility] Palliative Care Screening Tool for strata 3, pt did not meet criteria. Ervin LAMAN RN CM
--- NOTE | 2021-02-07 11:10 | PN.HOSP_ITS ---
Documented by User: Tavia Renee COOKER PIE FILLING, COOKER PIE FILLING-C 02/07/21 11:30 Subjective Subjective Patient seen and examined. Reports feeling weak and tired. Reports shortness of breath and chest pressure with minimal exertion. Objective Data Objective Data Vital Signs: Vital Signs Temp Pulse Resp BP Pulse Ox 98.3 F 70 19 H 102/78 95 02/07/21 10:27 02/07/21 10:27 02/07/21 10:27 02/07/21 10:27 02/07/21 10:27 Oxygen Flow Rate (L/min) 2 Oxygen Delivery Method Room Air Weight: 193 lb 5.526 oz Body Mass Index (BMI) 32.1 Intake & Output: Intake and Output for Last 24 Hours 02/05/21 02/06/21 02/07/21 23:59 23:59 23:59 Intake Total 126.00 / 141.00 342.50 / 342.50 Balance 126.00 / 141.00 342.50 / 342.50 Lab / Micro Data Result Diagrams: 02/07/21 01:18 02/07/21 01:18 Labs: Laboratory Results - last 24 hr 02/06/21 19:15: WBC 7.8, RBC 3.97 L, Hgb 12.0, Hct 37.6, MCV 94.7, MCH 30.2, MCHC 31.9 L, RDW Std Deviation 43.0, RDW Coeff of Jenna 12.4, Plt Count 245, MPV 9.4, Immature Gran % (Auto) 0.500, Neut % (Auto) 71.9 H, Lymph % (Auto) 13.8 L, Anson % (Auto) 10.8 H, Eos % (Auto) 2.6, Baso % (Auto) 0.4, Absolute Neuts (auto) 5.6, Absolute Lymphs (auto) 1.07, Nucleated RBC % 0 02/06/21 19:15: Sodium 142, Potassium 3.7, Chloride 107, Carbon Dioxide 29.0, Anion Gap 6, BUN 20 H, Creatinine 0.79, Estim Creat Clear Calc 42.39, Est GFR (MDRD) Af Amer 91, Est GFR (MDRD) Non-Af 75, BUN/Creatinine Ratio 25.3 H, Gl ucose 128 H, Calcium 8.4 L, Troponin I High Sens 8.6 02/06/21 19:15: Magnesium 2.1 02/07/21 01:18: WBC 8.2, RBC 3.75 L, Hgb 11.4 L, Hct 35.4 L, MCV 94.4, MCH 30.4, MCHC 32.2, RDW Std Deviation 42.5, RDW Coeff of Jenna 12.3, Plt Count 221, MPV 8.9 02/07/21 01:18: Sodium 141, Potassium 3.6, Chloride 106, Carbon Dioxide 28.0, Anion Gap 7, BUN 20 H, Creatinine 0.70, Estim Creat Clear Calc 42.39, Est GFR (MDRD) Af Amer 104, Est GFR (MDRD) Non-Af 86, BUN/Creatinine Ratio 28.4 H, Glucose 135 H, Calcium 8.1 L 02/07/21 01:18: Troponin I High Sens 23.3 02/07/21 01:18: Total Bilirubin 0.20, Direct Bilirubin 0.10, AST 7 L, ALT 17, Alkaline Phosphatase 37 L, Total Protein 5.8 L, Albumin 2.9 L, Globulin 2.9, TSH 0.81 Radiography Diagnostic Testing: Radiology Impression Chest X-Ray 02/06/21 19:38 IMPRESSION: Borderline cardiomegaly without acute pulmonary disease or major interval change. Electronically Signed: Khanh Gaitan DO at 20:26 EDT Tel [phone], Service support , Rhythm Strip Rhythm Strip: A-fib Rate: 167 Ectopy: PVC(s) Physical Exam Const alert, oriented x3 and no apparent distress Orientation / Consciousness: awake, oriented to person, oriented to place and oriented to time HEENT normocephalic and moist oral mucous membranes Eyes PERRL, EOMs intact bilaterally and conjunctivae normal Neck no lymphadenopathy Resp normal respiratory effort and clear to auscultation bilaterally Cardio Cardio Narrative: Atrial fibrillation, rate controlled GI normal to inspection, nondistended, normoactive bowel sounds, non-tender and non-distended Extremity normal to inspection Skin no rashes or lesions noted Lesions: no lesions Rashes: no rashes Trauma: no lacerations or abrasions Neuro CN's II-XII intact bilaterally, no focal motor deficits, no sensory deficits noted and deep tendon reflexes 2+ bilaterally Psych mental status grossly normal and affect normal Assessment & Plan Assessment/Plan (1) Atrial fibrillation with RVR: PLAN: 1. Atrial fibrillation with RVR- cardiology following. Started on sotolol. Continue Eliquis. Recent echocardiogram in November 2020 demonstrated an EF of 60%, stage I diastolic dysfunction, mild mitral valve insufficiency. TSH, mag normal. 2. CAD-continue medical management. 3. Chronic COPD-as needed albuterol aerosol. 4. Hypertension-stable, continue lisinopril/HCTZ. 5. Hyperlipidemia- continue statin. 6. GERD- on PPI. DVT prophylaxis- Eliquis This patient was seen by Tavia Renee NP-C under the supervision of Dr. Baig. Documented by User: Dr. Cayetano Baig, 02/07/21 17:38 Objective Data Lab / Micro Data Result Diagrams: 02/07/21 01:18 02/07/21 01:18 Charges/Coding Addendum Addendum: Patient was seen and examined today independently of Tavia Renee, she remains in atrial fibrillation at this time, I discussed her care with cardiology today, she was placed on sotalol by cardiology. On examination she appeared older than her stated age, she appears fatigued, she does not appear to be in any distress. Vital signs as documented. Skin warm and dry and without overt rashes. Neck without JVD, thyroid appears normal, trachea is midline, neck is supple. Lungs clear, normal air movement was noted. Heart exam notable for irregular rhythm, normal sounds and absence of murmurs, rubs or gallops. Abdomen unremarkable and without evidence of organomegaly, masses, or abdominal aortic enlargement, bowel sounds are present in all 4 quadrants, no abdominal tenderness was noted. Extremities nonedematous, no cyanosis was noted, no clubbing was noted. Neuro: Cranial nerves II through XII are grossly intact, no focal motor deficits were noted, sensation to light touch and pinprick is intact, motor exam 5/5 throughout. Psych: Patient is alert and oriented x3, she does not appear anxious or depressed, she does not appear agitated. I have reviewed Tavia Renee's progress note including her medical assessment and plan of care and endorse it. Visit Charges Inpatient E&M: 87037 Subs Hosp L2
--- NOTE | 2021-02-07 11:20 | CASEMGMT ---
MCKENNA SOSA Face to Face with patient for initial transition planning/care coordination assessment. RN IAN introduced self and role at [facility]. Patient lying in bed, alert and oriented. Patient willing to participate in assessment and is able to answer all questions appropriately. Care providers, pharmacy, and demographics verified. Patient wishes to discharge home with resumption of CCN and Passport service. Patient states she has no further needs or concerns at this time. CM to follow for discharge planning needs that may arise. PCP: More Specialists: Sahra, pain; Merline, shipping lead Preferred Pharmacy: [facility] Insurance: [employer] Prescription Benefit: yes Living Will/HPOA: none LNOK: sons Living Arrangements: Patient lives alone in a mobile home with ramp to enter the home. Patient states she is independent at home. Transportation: sister in law DME/HHC: patient states she has raised toilet, rollator, grab bars, and nebulizer at home. Patient states she is active with CCN and Passport services with [facility]. Disposition Plan: Patient to discharge home home with CCN, Passport services, family support, and follow-up plans in place. Nubia LUCIO, RN, CM
[2021-02-07] MEDS: HYDROcodone Bitartrate/Apap 5/325 Tablet PO ×2 (12:57→22:24)
[2021-02-07] MEDS: Polyethylene Glycol 3350 17 GM PACKET PO (12:57)
[2021-02-07] MEDS: 0.9% Saline Lock 10 ML Syringe IV (14:27)
[2021-02-07] MEDS: Pravastatin 20 MG Tablet PO (22:24)
[2021-02-07] MEDS: Zolpidem Tartrate 5 MG Tablet PO (22:24)
[2021-02-08] VITALS (11 sets, daily range): BP systolic 125–138; BP diastolic 62–77; PULSE 63–74; RESP 16–18; TEMP 36.5–36.8; O2SAT 92–98
--- NOTE | 2021-02-08 05:55 | EKG12_ITS ---
Test Reason : AM EKG Blood Pressure : / mmHG Vent. Rate : 067 BPM Atrial Rate : 067 BPM P-R Int : 240 ms QRS Dur : 082 ms QT Int : 456 ms P-R-T Axes : 084 004 027 degrees QTc Int : 481 ms Sinus rhythm with 1st degree A-V block Incomplete right bundle branch block Confirmed by AYANA GONZALEZ, JORGE ([id number]), design center consultant ALEXEY BILLINGS ([id number]) on 02/10/2021 10:17:01 AM Referred By: ISMAEL Confirmed By:JORGE PIÑA MD
[2021-02-08 07:31] LABS: Anion Gap 4 (5-15); BUN 18 mg/dL (7-18); BUN/Creat Ratio 23.6 RATIO (10-20); Calcium,Total 8.3 mg/dL (8.5-10.1); Chloride 105 mmol/L (98-107); Creatinine, Serum 0.76 mg/dL (0.55-1.02); EST Glomerular Filtration Rate 78 mL/min (>60); Est Glom Filt Rate - Afr Amer 94 mL/min (>60); Estimated Creatinine Clearance 42.39 ml/min; Glucose 136 mg/dL (74-106); Potassium 3.9 mmol/L (3.5-5.1); Sodium Level 138 mmol/L (136-145)
[2021-02-08] MEDS: Sotalol Hydrochloride 80 MG Tablet PO ×2 (10:02→21:14)
[2021-02-08] MEDS: Pantoprazole Sodium 20 MG Tablet PO (10:02)
[2021-02-08] MEDS: APIXABAN 5 MG TABLET PO ×2 (10:02→21:14)
[2021-02-08] MEDS: Calcium Carb/Vitamin D 1 TABLET Tablet PO (10:02)
[2021-02-08] MEDS: hydroCHLOROthiazide 12.5mg 12.5 MG PO (10:02)
[2021-02-08] MEDS: Lisinopril 10 MG Tablet PO (10:02)
[2021-02-08] MEDS: Polyethylene Glycol 3350 17 GM PACKET PO (10:02)
[2021-02-08] MEDS: Anastrozole 1 MG TABLET PO (10:03)
--- NOTE | 2021-02-08 11:06 | CASEMGMT ---
Addendum entered by Jocelyn Louis 02/08/21 12:41: Plan is for pt to be discharged home on Betapace. Per [facility] 2020 formulary, Betapace (Sotalol) is Tier 1 and pt's ous-up-ovzcpd cost is $0, w/requirement for it to be mail order. Pt made aware of same. She states she prefers to get her meds @ [facility] instead of mail-order. She was made aware initial script will be sent to [facility] as it will be for short-term fill and to f/u with pharmacy and her insurance re: refills for long-term medications and requirements. She voices understanding. Original Note: MCKENNA SOSA NOTE: PT/OT notes reviewed--additional therapy recommended. MCKENNA SOSA to room. Introduced self and role of MCKENNA SOSA. Pt made aware of therapies recommendations. Pt states she feels safe to return home and does not want HHC or additional therapy. Pt states she has a ramp entrance and a lift chair, and she is able to get around well in her trailer. Pt made aware, if she decides in the future she is interested in HHC, to contact her PCP to discuss this. She voices understanding. MCKENNA SOSA also instructed pt to ask for CM, if she changes her mind before discharge and would like it set up before being discharged. Ervin LCUIO RN, CM
--- NOTE | 2021-02-08 11:12 | PCM.PN.HOSP ---
Documented by User: Tavia Renee NP, [employer]-C 02/08/21 11:20 Subjective Subjective Patient seen and examined. Reports mild nausea. Shortness of breath and chest pain improved. Telemetry currently shows sinus rhythm. Patient declines SNF at discharge. Objective Data Objective Data Vital Signs: Vital Signs Temp Pulse Resp BP Pulse Ox 97.9 F 67 16 130/62 H 94 02/08/21 09:57 02/08/21 09:57 02/08/21 09:57 02/08/21 09:57 02/08/21 09:57 Oxygen Flow Rate (L/min) 2 Oxygen Delivery Method Room Air Weight: 193 lb 5.526 oz Body Mass Index (BMI) 32.1 Intake & Output: Intake and Output for Last 24 Hours 02/06/21 02/07/21 02/08/21 23:59 23:59 23:59 Intake Total 126.00 / 141.00 1432.50 / 1432.50 250 / 250 Balance 126.00 / 141.00 1432.50 / 1432.50 250 / 250 Lab / Micro Data Result Diagrams: 02/07/21 01:18 02/08/21 06:42 Labs: Laboratory Results - last 24 hr 02/08/21 06:42: Sodium 138, Potassium 3.9, Chloride 105, Carbon Dioxide 29.0, Anion Gap 4 L, BUN 18, Creatinine 0.76, Estim Creat Clear Calc 42.39, Est GFR (MDRD) Af Amer 94, Est GFR (MDRD) Non-Af 78, BUN/Creatinine Ratio 23.6 H, Glucose 136 H, Calcium 8.3 L Rhythm Strip Rhythm Strip: A-fib Rate: 167 Ectopy: PVC(s) Physical Exam Const alert, oriented x3 and no apparent distress Orientation / Consciousness: awake, oriented to person, oriented to place and oriented to time HEENT normocephalic and moist oral mucous membranes Eyes PERRL, EOMs intact bilaterally and conjunctivae normal Neck no lymphadenopathy Resp normal respiratory effort and clear to auscultation bilaterally Cardio regular rate, regular rhythm and no murmurs Peripheral Pulses: pulses 2+ throughout GI normal to inspection, nondistended, normoactive bowel sounds, non-tender and non-distended Extremity normal to inspection Skin no rashes or lesions noted Lesions: no lesions Rashes: no rashes Trauma: no lacerations or abrasions Neuro CN's II-XII intact bilaterally, no focal motor deficits, no sensory deficits noted and deep tendon reflexes 2+ bilaterally Psych mental status grossly normal and affect normal Assessment & Plan Assessment/Plan (1) Paroxysmal atrial fibrillation: PLAN: 1. Atrial fibrillation with RVR- cardiology following. Started on Sotolol 02/07/2021. Continue Eliquis. Recent echocardiogram in November 2020 demonstrated an EF of 60%, stage I diastolic dysfunction, mild mitral valve insufficiency. TSH, mag normal. Plan for continued cardiac monitoring per cardiology. 2. CAD-continue medical management. 3. Chronic COPD-as needed albuterol aerosol. 4. Hypertension-stable, continue lisinopril/HCTZ. 5. Hyperlipidemia- continue statin. 6. GERD- on PPI. DVT prophylaxis- Eliquis This patient was seen by LEONIDAS Barnett under the supervision of Dr. Baig. Documented by User: Dr. Cayetano Baig DO 02/08/21 17:28 Objective Data Lab / Micro Data Result Diagrams: 02/07/21 01:18 02/08/21 06:42 Charges/Coding Addendum Addendum: Patient was seen and examined today independently of Tavia Renee, she appears to be in sinus rhythm at this time, patient continues on sotalol and is monitored on telemetry for any abnormalities due to initiation of the medication. On examination she appeared in good health and spirits, she does not appear to be in any distress. Vital signs as documented. Skin warm and dry and without overt rashes. Neck without JVD, thyroid appears normal, trachea is midline, neck is supple. Lungs clear, normal air movement was noted. Heart exam notable for regular rhythm, normal sounds and absence of murmurs, rubs or gallops. Abdomen unremarkable and without evidence of organomegaly, masses, or abdominal aortic enlargement, bowel sounds are present in all 4 quadrants, no abdominal tenderness was noted. Extremities nonedematous, no cyanosis was noted, no clubbing was noted. Neuro: Cranial nerves II through XII are grossly intact, no focal motor deficits were noted, sensation to light touch and pinprick is intact, motor exam 5/5 throughout. Psych: Patient is alert and oriented x3, she does not appear anxious or depressed, she does not appear agitated, she has flat affect Patient will continue on her present medications, any changes in her cardiac medications will be made by cardiology. I have reviewed Tavia Renee's progress note including her medical assessment and plan of care and endorse it. Visit Charges Inpatient E&M: 76419 Subs Hosp L2
--- NOTE | 2021-02-08 12:57 | PCM.PN.CARD ---
Subjective Subjective The patient is awake and alert. She does not describe ongoing palpitations or rapid heart rate sensations. Objective Data Vital Signs: Vital Signs Temp Pulse Resp BP Pulse Ox 97.9 F 67 16 130/62 H 92 02/08/21 09:57 02/08/21 09:57 02/08/21 09:57 02/08/21 09:57 02/08/21 11:36 Oxygen Flow Rate (L/min) 2 Oxygen Delivery Method Room Air Weight: 193 lb 5.526 oz Body Mass Index (BMI) 32.1 Intake & Output: Intake and Output for Last 24 Hours 02/06/21 02/07/21 02/08/21 23:59 23:59 23:59 Intake Total 126.00 / 141.00 1432.50 / 1432.50 490 / 490 Balance 126.00 / 141.00 1432.50 / 1432.50 490 / 490 Lab / Micro Data Result Diagrams: 02/07/21 01:18 02/08/21 06:42 Labs: Laboratory Results - last 24 hr 02/08/21 06:42: Sodium 138, Potassium 3.9, Chloride 105, Carbon Dioxide 29.0, Anion Gap 4 L, BUN 18, Creatinine 0.76, Estim Creat Clear Calc 42.39, Est GFR (MDRD) Af Amer 94, Est GFR (MDRD) Non-Af 78, BUN/Creatinine Ratio 23.6 H, Glucose 136 H, Calcium 8.3 L Rhythm Strip Rhythm Strip: A-fib Rate: 167 Ectopy: PVC(s) Cardiology Labs/Tests 02/08/21 06:42: Sodium 138, Potassium 3.9, Chloride 105, Carbon Dioxide 29.0, Anion Gap 4 L, BUN 18, Creatinine 0.76, Est GFR (MDRD) Af Amer 94, Est GFR (MDRD) Non-Af 78, BUN/Creatinine Ratio 23.6 H, Glucose 136 H, Calcium 8.3 L Rhythm: Sinus rhythm EKG: Sinus rhythm; no acute ECG changes Physical Exam Narrative The patient is awake and alert and in no acute distress. Const alert, oriented x3 and no apparent distress Orientation / Consciousness: awake HEENT normocephalic, head/scalp atraumatic and hearing grossly normal bilaterally Eyes PERRL, EOMs intact bilaterally and conjunctivae normal Neck full ROM, supple and no JVD Chest inspection of chest normal Resp normal respiratory effort and clear to auscultation bilaterally Cardio regular rate, regular rhythm, S1 normal heart sound and S2 normal heart sound Cardio Narrative: With episodes of an irregular rhythm GI normal to inspection, nondistended, normoactive bowel sounds Extremity no pedal edema Skin no rashes or lesions noted Neuro oriented x3 and moves all extremities Psych mental status grossly normal Assessment & Plan Assessment/Plan (1) Atrial fibrillation with rapid ventricular response: PLAN: The patient has a history of paroxysmal atrial fibrillation. She has been on and off different rate limiting medications. She has been on and off amiodarone therapy. She has continued anticoagulant therapy. She presents with another recurrent event (most recent event requiring hospitalization was in November 2020). Her troponin I levels have been negative. Her ECG is not demonstrated any new acute ECG changes. Her previous noninvasive and invasive studies are as noted. At the present time her medications are being adjusted. She has been placed on sotalol/Betapace. She is being monitored. Thus far she has remained in sinus rhythm and has had no adverse events/pro arrhythmic events. She will continue to be followed during her antiarrhythmic initiation. (2) Atherosclerotic heart disease of [place] coronary artery without angina pectoris: QUALIFIERS: [place] vs. transplanted heart: [place] heart Qualified Code(s): I25.10 - Atherosclerotic heart disease of [place] coronary artery without angina pectoris PLAN: The patient has a history of nonangiographically significant CAD as previously noted. She has undergone follow-up studies over time with both echocardiograms which have demonstrated no left ventricular wall motion abnormalities and exercise tolerance test/imaging study which is demonstrated no obvious evidence of stress-induced myocardial ischemia. At the present time she will continue evaluation care of her paroxysmal atrial fibrillation as noted. (3) Pure hypercholesterolemia: PLAN: The patient should continue risk factor evaluation and care as deemed appropriate. (4) Essential hypertension: PLAN: The patient's blood pressure will need to be monitored and her medicines adjusted accordingly. Addt'l Comments This note was generated using a voice recognition system and there may be incorrect words, spelling or punctuation that were not noted when reviewing the office note prior to saving.
[2021-02-08] MEDS: HYDROcodone Bitartrate/Apap 5/325 Tablet PO ×2 (14:26→22:51)
[2021-02-08] MEDS: Ondansetron ODT 4 MG Tablet PO (14:26)
[2021-02-08] MEDS: 0.9% Saline Lock 10 ML Syringe IV (14:26)
[2021-02-08] MEDS: Nystatin Powder 15gm Bottle 1 APPLIC TOPICAL (21:14)
[2021-02-08] MEDS: Pravastatin 20 MG Tablet PO (21:14)
[2021-02-08] MEDS: Zolpidem Tartrate 5 MG Tablet PO (22:51)
[2021-02-09] VITALS (8 sets, daily range): BP systolic 135–149; BP diastolic 61–74; PULSE 65–80; RESP 12–20; TEMP 36.1–37.1; O2SAT 92–95
[2021-02-09] MEDS: Acetaminophen 325 MG Tablet PO (06:40)
--- NOTE | 2021-02-09 08:41 | PN.CARD_ITS ---
Subjective Subjective The patient appears to be resting comfortably at this time in no acute distress. Objective Data Vital Signs: Vital Signs Temp Pulse Resp BP Pulse Ox 96.9 F L 65 20 H 135/61 H 94 02/09/21 03:35 02/09/21 07:09 02/09/21 03:35 02/09/21 03:35 02/09/21 03:35 Oxygen Flow Rate (L/min) 2 Oxygen Delivery Method Room Air Weight: 193 lb 5.526 oz Body Mass Index (BMI) 32.1 Intake & Output: Intake and Output for Last 24 Hours 02/07/21 02/08/21 02/09/21 23:59 23:59 23:59 Intake Total 1432.50 / 1432.50 1030 / 1510 600 / 600 Balance 1432.50 / 1432.50 1030 / 1510 600 / 600 Lab / Micro Data Result Diagrams: 02/07/21 01:18 02/08/21 06:42 Rhythm Strip Rhythm Strip: A-fib Rate: 167 Ectopy: PVC(s) Cardiology Labs/Tests Rhythm: Sinus rhythm Physical Exam Narrative The patient is awake and alert and in no acute distress. Const alert, oriented x3 and no apparent distress Orientation / Consciousness: awake HEENT normocephalic, head/scalp atraumatic and hearing grossly normal bilaterally Eyes PERRL, EOMs intact bilaterally and conjunctivae normal Neck full ROM, supple and no JVD Chest inspection of chest normal Resp normal respiratory effort and clear to auscultation bilaterally Cardio regular rate, regular rhythm, S1 normal heart sound and S2 normal heart sound Cardio Narrative: With episodes of an irregular rhythm GI normal to inspection, nondistended, normoactive bowel sounds Extremity no pedal edema Skin no rashes or lesions noted Neuro oriented x3 and moves all extremities Psych mental status grossly normal Assessment & Plan Assessment/Plan (1) Atrial fibrillation with rapid ventricular response: PLAN: The patient has a history of paroxysmal atrial fibrillation. She has been on and off different rate limiting medications. She has been on and off amiodarone therapy. She has continued anticoagulant therapy. She presents with another recurrent event (most recent event requiring hospitalization was in November 2020). Her troponin I levels have been negative. Her ECG is not demonstrated any new acute ECG changes. Her previous noninvasive and invasive studies are as noted. At the present time her medications are being adjusted. She has been placed on sotalol/Betapace. She is being monitored. Thus far she has remained in sinus rhythm and has had no adverse events/pro arrhythmic events. Her follow-up ECGs have demonstrated no acute changes thus far. She will continue to be followed during her antiarrhythmic initiation. (2) Atherosclerotic heart disease of [place] coronary artery without angina pectoris: QUALIFIERS: [place] vs. transplanted heart: [place] heart Qualified Code(s): I25.10 - Atherosclerotic heart disease of [place] coronary artery without angina pectoris PLAN: The patient has a history of nonangiographically significant CAD as previously noted. She has undergone follow-up studies over time with both echocardiograms which have demonstrated no left ventricular wall motion abnormalities and exercise tolerance test/imaging study which is demonstrated no obvious evidence of stress-induced myocardial ischemia. At the present time she will continue evaluation care of her paroxysmal atrial fibrillation as noted. (3) Pure hypercholesterolemia: PLAN: The patient should continue risk factor evaluation and care as deemed appropriate. (4) Essential hypertension: PLAN: The patient's blood pressure will need to be monitored and her medicines adjusted accordingly. Addt'l Comments The patient's case has been previously discussed with the [facility] staff. There has been a comment as to whether or not the patient will be able to return home or whether or not she may need a post hospital extended care facility stay for period of time for additional OT/PT. This note was generated using a voice recognition system and there may be incorrect words, spelling or punctuation that were not noted when reviewing the office note prior to saving.
[2021-02-09] MEDS: Lisinopril 10 MG Tablet PO (09:34)
[2021-02-09] MEDS: Polyethylene Glycol 3350 17 GM PACKET PO (09:34)
[2021-02-09] MEDS: Sotalol Hydrochloride 80 MG Tablet PO (09:34)
[2021-02-09] MEDS: Anastrozole 1 MG TABLET PO (09:34)
[2021-02-09] MEDS: Pantoprazole Sodium 20 MG Tablet PO (09:34)
[2021-02-09] MEDS: Calcium Carb/Vitamin D 1 TABLET Tablet PO (09:34)
[2021-02-09] MEDS: hydroCHLOROthiazide 12.5mg 12.5 MG PO (09:34)
[2021-02-09] MEDS: APIXABAN 5 MG TABLET PO (09:35)
--- NOTE | 2021-02-09 11:26 | CASEMGMT ---
Addendum entered by Jocelyn Louis 02/09/21 15:06: Call placed to Ignacio @ [facility] and she was notified that pt is being discharged home today. Original Note: MCKENNA SOSA NOTE: PT/OT notes from today reviewed. They are continuing to recommend additional therapy. MCKENNA SOSA to room. Pt made aware of recommendations and discussed discharge planning. Pt declines HHC, stating she does not feel like she needs therapy and that she plans to continue w/CCN. MCKENNA SOSA reminded pt, if she decides once she returns home that she would like HHC/therapy, to contact her PCP to discuss this with them or [facility] to assist w/this. She voices understanding. Ervin LUCIO RN, CM
--- NOTE | 2021-02-09 13:48 | PCM.DC ---
Discharge Instructions Diet Discharge Diet: No restrictions Activity Discharge Activity: Return to Normal Activity Weight Bearing Status: Weight bearing as tolerated Dressing / Incision Call your doctor if you observe: Fever of 101 or Higher, Numbness or Tingling, Shortness of breath, Dizziness, Chest pain, Increased palpitations (irregular heartbeat) and Calf discomfort Follow Up Care Please Follow Up With: Primary care provider When: Within the next two weeks. Test Results: Test results from this visit will be discussed in further detail at your follow-up appointment, if applicable. Discharge Plan Admission Admit Date/Time: 02/06/21 21:07 Primary Reason for Your Visit: Atrial Fibrillation w/ RVR Attending Provider: Sean Elizabeth Primary Care Provider: Jessica Aguero Consulting Providers: Juan Carlos Blackwood Instructions Patient Instructions: ED Chest Pain, Noncardiac Discharge Orders/Prescriptions Prescriptions: New sotalol 80 mg tablet 80 mg PO BID Qty: 60 RF: 0 Continued omeprazole 20 MG capsule 20 mg PO DAILY RF: 0 albuterol sulfate 1 PUFF inhaler 2 puff INHALATION Q4H PRN PRN (Reason: Asthma) RF: 0 zolpidem 12.5 MG tablet,ext release multiphase 6.25 mg PO QHS PRN PRN (Reason: Insomnia) RF: 0 calcium citrate-vitamin D3 1 EACH tablet 2 tab PO DAILY RF: 0 hydrocodone-acetaminophen 5-325 mg tablet 1 tab PO TID RF: 0 acetaminophen 650 mg Tablet Extended Release 1,300 mg PO DAILY PRN (Reason: Pain) RF: 0 Prolia 60 mg/mL Syringe 60 mg SUBCUT .[id number] RF: 0 pravastatin 20 mg tablet 20 mg PO QHS RF: 0 Eliquis 5 mg tablet 5 mg PO BID RF: 0 ondansetron HCl [Zofran] 4 mg tablet 4 mg PO TID RF: 0 lisinopril-hydrochlorothiazide 10-12.5 mg tablet 1 tab PO DAILY RF: 0 anastrozole 1 mg tablet 1 mg PO DAILY 90 Days Qty: 90 RF: 3 Discontinued metoprolol tartrate 25 mg tablet 25 mg PO BID Qty: 180 RF: 3 Referrals / Follow Up: Jessica Aguero, [Primary Care Provider] - Within 2 Weeks Disposition Disposition (needs filled in before D/C Order can be placed): Home, Self Care
--- NOTE | 2021-02-09 13:53 | PCM.DC.SUM ---
Documented by User: Dereje SILVA 02/09/21 14:10 Providers Date of Admission: 02/06/21 Primary Care Physician: Dr. Jessica Aguero DO Consultations 02/06/21 21:56 Consult: Cardiology Routine Consulting Provider: Juan Carlos Blackwood Reason for Consult: Persistent Afib with rvr EMERGENT Consult: No MD Notified: Yes Date Notified: 02/07/21 Time Notified: 07:38 Method of Notification: Text Method of Consult:: In-Person Reason For Visit: AFIB WITH RVR Diagnosis Discharge Diagnosis (1) Atrial fibrillation with rapid ventricular response: Status: Acute Code(s): I48.91 - Unspecified atrial fibrillation (2) Atherosclerotic heart disease of [place] coronary artery without angina pectoris: Status: Chronic Code(s): I25.10 - Atherosclerotic heart disease of [place] coronary artery without angina pectoris Qualifiers: [place] vs. transplanted heart: [place] heart Qualified Code(s): I25.10 - Atherosclerotic heart disease of [place] coronary artery without angina pectoris (3) Pure hypercholesterolemia: Status: Chronic Code(s): E78.00 - Pure hypercholesterolemia, unspecified (4) Essential hypertension: Status: Chronic Code(s): I10 - Essential (primary) hypertension Medications at Discharge Home Medications albuterol sulfate 2 puff INHALATION Q4H PRN PRN 06/16/13 omeprazole 20 mg PO DAILY 06/16/13 calcium citrate-vitamin D3 2 tab PO DAILY 10/24/18 zolpidem 6.25 mg PO QHS PRN PRN 03/24/19 Prolia 60 mg SUBCUT .[id number] 11/25/20 acetaminophen 1,300 mg PO DAILY PRN 11/25/20 hydrocodone-acetaminophen 1 tab PO TID 11/25/20 anastrozole 1 mg tablet 1 mg PO DAILY 90 Days #90 tab 01/04/21 Eliquis 5 mg PO BID 02/06/21 lisinopril-hydrochlorothiazide 1 tab PO DAILY 02/06/21 ondansetron HCl [Zofran] 4 mg PO TID 02/06/21 pravastatin 20 mg PO QHS 02/06/21 sotalol 80 mg PO BID #60 tab 02/09/21 Hospital Course Summary of Care Provided Minutes Spent on Discharge: 35 Hospital Course: Disposition: Patient qualifies for senior care therapy, however patient denies needing or wanting to participate in skilled therapy. Patient also denied any home therapy. Patient was advised by PT/OT, case management and this provider that she would benefit from such therapy, however patient reports that she just would like to return home. Patient advised of the risks of returning home without appropriate therapy to include incurring injury or even . Patient acknowledges and accepts associated risks. 1) Atrial fibrillation with RVR Cardiology following; rate control achieved w/ sotalol. Already anticoagulated on Eliquis. Recent echocardiogram in November 2020 demonstrated an EF of 60%, stage I diastolic dysfunction, mild mitral valve insufficiency. TSH, mag normal. Plan; follow-up with primary care provider and cardiology within the next 2 weeks, initiate sotalol 80 mg p.o. twice daily on discharge, continue Eliquis. 2) CAD Continue medical management, as above. 3) Chronic COPD Continue bronchodilators. 4) Hypertension stable, continue lisinopril/HCTZ. 5) Hyperlipidemia continue statin. 6) GERD Continue PPI Patient seen by Dereje Horowitz PA-C, under the supervision of Dr. Elizabeth. Physical Exam Narrative Patient is a 75-year-old female comfortably resting in bed, alert and orient x3. Patient reports subjective improvement from admission and reports no new symptoms in the past 24 hours. Denies chest pain, shortness of breath, palpitations, hemoptysis, sputum production, fever, chills, N/V/D. Const alert, oriented x3 and no apparent distress HEENT normocephalic, head/scalp atraumatic and hearing grossly normal bilaterally Eyes PERRL, EOMs intact bilaterally and conjunctivae normal Neck no lymphadenopathy, supple and no JVD Resp normal respiratory effort, no retractions, no use of accessory muscles and clear to auscultation bilaterally Cardio regular rate, regular rhythm, no murmurs and no JVD GI normal to inspection, nondistended, normoactive bowel sounds, soft to palpation, non-tender and non-distended Extremity normal to inspection, full ROM and no clubbing, cyanosis or edema Skin no rashes or lesions noted, no wounds and skin turgor normal Neuro CN's II-XII intact bilaterally Psych affect normal Weight / BMI Weight Weight: 193 lb 5.526 oz Body Mass Index (BMI) 32.1 ABG / Lab / Microbiology Data Result Diagrams: 02/07/21:18 02/08/21 06:42 D/C Instructions Discharge Diet: No restrictions Weight Bearing Status: Weight bearing as tolerated Call your doctor if you observe: Fever of 101 or Higher, Numbness or Tingling, Shortness of breath, Dizziness, Chest pain, Increased palpitations (irregular heartbeat) and Calf discomfort Please Follow Up With: Primary care provider When: Within the next two weeks. Meaningful Use Info Meaningful Use Diagnoses (Choose all that apply): None applicable Discharge Plan Admission Admit Date/Time: 02/06/21 21:07 Primary Reason for Your Visit: Atrial Fibrillation w/ RVR Attending Provider: Sean Elizabeth Primary Care Provider: Jessica Aguero Consulting Providers: Juan Carlos Blackwood Instructions Patient Instructions: ED Chest Pain, Noncardiac Additional Instructions / Restrictions: Patient Problems: Altered Health Status related to Hospitalization Patient Goals: *Optimal Level of Health *Keep Appointments *Medication Compliance *Remain Safe Discharge Orders/Prescriptions Prescriptions: New sotalol 80 mg tablet 80 mg PO BID Qty: 60 RF: 0 Continued omeprazole 20 MG capsule 20 mg PO DAILY RF: 0 albuterol sulfate 1 PUFF inhaler 2 puff INHALATION Q4H PRN PRN (Reason: Asthma) RF: 0 zolpidem 12.5 MG tablet,ext release multiphase 6.25 mg PO QHS PRN PRN (Reason: Insomnia) RF: 0 calcium citrate-vitamin D3 1 EACH tablet 2 tab PO DAILY RF: 0 hydrocodone-acetaminophen 5-325 mg tablet 1 tab PO TID RF: 0 acetaminophen 650 mg Tablet Extended Release 1,300 mg PO DAILY PRN (Reason: Pain) RF: 0 Prolia 60 mg/mL Syringe 60 mg SUBCUT .[id number] RF: 0 pravastatin 20 mg tablet 20 mg PO QHS RF: 0 Eliquis 5 mg tablet 5 mg PO BID RF: 0 ondansetron HCl [Zofran] 4 mg tablet 4 mg PO TID RF: 0 lisinopril-hydrochlorothiazide 10-12.5 mg tablet 1 tab PO DAILY RF: 0 anastrozole 1 mg tablet 1 mg PO DAILY 90 Days Qty: 90 RF: 3 Discontinued metoprolol tartrate 25 mg tablet 25 mg PO BID Qty: 180 RF: 3 Referrals / Follow Up: Uziel Rick MD [STAFF PHYSICIAN] - Within 2 Weeks Melissa Ingram MANIFOLD BUILDER, MANIFOLD BUILDER-C [NON-STAFF] - 02/14/21 2:15 pm Disposition Disposition (needs filled in before D/C Order can be placed): Home, Self Care Documented by User: Dr. Sean Elizabeth MD 02/09/21 15:02 Providers Date of Admission: 02/06/21 Reason For Visit: AFIB WITH RVR Medications at Discharge Home Medications albuterol sulfate 2 puff INHALATION Q4H PRN PRN 06/16/13 omeprazole 20 mg PO DAILY 06/16/13 calcium citrate-vitamin D3 2 tab PO DAILY 10/24/18 zolpidem 6.25 mg PO QHS PRN PRN 03/24/19 Prolia 60 mg SUBCUT .[id number] 11/25/20 acetaminophen 1,300 mg PO DAILY PRN 11/25/20 hydrocodone-acetaminophen 1 tab PO TID 11/25/20 anastrozole 1 mg tablet 1 mg PO DAILY 90 Days #90 tab 01/04/21 Eliquis 5 mg PO BID 02/06/21 lisinopril-hydrochlorothiazide 1 tab PO DAILY 02/06/21 ondansetron HCl [Zofran] 4 mg PO TID 02/06/21 pravastatin 20 mg PO QHS 02/06/21 sotalol 80 mg PO BID #60 tab 02/09/21 Hospital Course Summary of Care Provided Hospital Course: This patient was seen in conjunction with RICARDO Lowe. I have independently interviewed and examined the patient and reviewed pertinent history, examination findings, laboratory and plan of management. I have reviewed the note and agree with the documented findings with the few additional points. In brief, patient is 75-year-old female admitted in PCU/telemetry with A. fib with RVR. Heart rate is controlled on amiodarone. Reaming Press Operator was consulted. Serum TSH, magnesium level normal. Discussed with tobacco wrapping machine tender continue on sotalol. Recent echo in November 2017 shows EF 60% with stage I diastolic function. Other comorbidities include coronary artery disease, COPD, hypertension, dyslipidemia, GERD and CA breast in remission. Last chemo in February 2018, on surveillance follow-up with Dr. Spicer. Patient did not want to go to nursing living she qualifies. She wants to go home and has daughter lives nearby and available for help Discharge medication reconciliation done. Discharge follow-up instructions completed. Discharge process discussed with the patient and all questions were answered to patient's satisfaction. Total time spent, exact 35 minutes on discharge meds reconciliation, examination, coordination of care with nurses and ancillary staff, review of imaging and blood test and discussion with the patient on follow-up instructions I have discussed my assessment with RICARDO Lowe and orders have been reviewed. Physical Exam Narrative Seen and examined. Patient admitted with A. fib with RVR. She has A. fib since but was controlled until she was started on chemotherapy after diagnosis of CA breast and then difficult to control since January 2018. Patient had tried several different medications. Currently heart rate controlled on sotalol 80 mg p.o. twice daily. Sinus rhythm with PVCs at 65 bpm. Physical exam General: Alert, Oriented x3, Cooperative HEENT: Atraumatic, PERRLA, EOMI, Normocephalic Oral: No Gingival or Mucosal Lesions/ Ulcerations Neck: Supple, No JVD, Negative Carotid Bruits Lungs: Air entry diminished in bilateral lung bases. No crepitation/rhonchi Cardiovascular: Regular rate, Regular Rhythm, Normal S1, Normal S2, No murmurs Abdomen: Bowel Sounds Present, Soft, Non Tender, Non-Distended : No renal angle tenderness. No suprapubic tenderness. Extremities: No edema, Capillary Refill Less than 3 Seconds Skin: No rashes, No breakdown Musculoskeletal: No Tenderness to Palpation of Joints or Extremities Neurological: Cranial nerves II-XII grossly intact, Deep Tendon Reflexes 2+/4 and Symmetrical, Neuro grossly intact Psych/Mental Status: Normal Affect, Appropriate. ABG / Lab / Microbiology Data Result Diagrams: 02/07/21 01:18 02/08/21 06:42 Discharge Plan Admission Admit Date/Time: 02/06/21 21:07 Primary Reason for Your Visit: Atrial Fibrillation w/ RVR Attending Provider: Sean Elizabeth Primary Care Provider: More,Jessica Consulting Providers: Juan Carlos Blackwood Instructions Patient Instructions: ED Chest Pain, Noncardiac Additional Instructions / Restrictions: Patient Problems: Altered Health Status related to Hospitalization Patient Goals: *Optimal Level of Health *Keep Appointments *Medication Compliance *Remain Safe Discharge Orders/Prescriptions Prescriptions: New sotalol 80 mg tablet 80 mg PO BID Qty: 60 RF: 0 Continued omeprazole 20 MG capsule 20 mg PO DAILY RF: 0 albuterol sulfate 1 PUFF inhaler 2 puff INHALATION Q4H PRN PRN (Reason: Asthma) RF: 0 zolpidem 12.5 MG tablet,ext release multiphase 6.25 mg PO QHS PRN PRN (Reason: Insomnia) RF: 0 calcium citrate-vitamin D3 1 EACH tablet 2 tab PO DAILY RF: 0 hydrocodone-acetaminophen 5-325 mg tablet 1 tab PO TID RF: 0 acetaminophen 650 mg Tablet Extended Release 1,300 mg PO DAILY PRN (Reason: Pain) RF: 0 Prolia 60 mg/mL Syringe 60 mg SUBCUT .[id number] RF: 0 pravastatin 20 mg tablet 20 mg PO QHS RF: 0 Eliquis 5 mg tablet 5 mg PO BID RF: 0 ondansetron HCl [Zofran] 4 mg tablet 4 mg PO TID RF: 0 lisinopril-hydrochlorothiazide 10-12.5 mg tablet 1 tab PO DAILY RF: 0 anastrozole 1 mg tablet 1 mg PO DAILY 90 Days Qty: 90 RF: 3 Discontinued metoprolol tartrate 25 mg tablet 25 mg PO BID Qty: 180 RF: 3 Referrals / Follow Up: Uziel Rick MD [STAFF PHYSICIAN] - Within 2 Weeks Melissa Ingram NP, MANIFOLD BUILDER-C [NON-STAFF] - 02/14/21 2:15 pm Disposition Disposition (needs filled in before D/C Order can be placed): Home, Self Care Charges/Coding Visit Charges Inpatient E&M: 50266 Disch Hosp
[2021-02-09] MEDS: HYDROcodone Bitartrate/Apap 5/325 Tablet PO (15:39)
--- NOTE | 2021-02-10 09:34 | CASEMGMT ---
ALFONSO faxed d/c instructions to [facility] for patient's director case Mena Rasmussen. Joslyn FATIMA
--- NOTE | 2021-02-10 15:08 | CASEMGMT ---
MCKENNA CM Discharge Follow-up Phone Call: STEVE: 12 Strata: 3 Call Date: 02/10/21 Discharge Date: 02/09/21 Time of Call: [id number] Duration: 1 min Admitting Diagnosis: A fib with RVR RN IAN attempted to complete follow-up phone call after recent hospitalization. No answer, voice message left with return contact information.
== END 2021-02-09 16:18 | disposition home or self-care (01) | DRG 310 ==
LOC: ED 20:32 → PCU 22:04
PROVIDERS: Internal Medicine Cardiovascular Disease; Admitting Provider Hospitalist; Emergency Provider Emergency Medicine; PCP Internal Medicine; Visit Provider Internal Medicine
DX: I48.0 Paroxysmal atrial fibrillation (principal); I25.10 Atherosclerotic heart disease of native coronary artery without angina pectoris; J44.9 Chronic obstructive pulmonary disease, unspecified; I10 Essential (primary) hypertension; E78.5 Hyperlipidemia, unspecified; K21.9 Gastro-esophageal reflux disease without esophagitis; E66.9 Obesity, unspecified; Z68.32 Body mass index [BMI] 32.0-32.9, adult; R60.0 Localized edema; Z79.02 Long term (current) use of antithrombotics/antiplatelets
CPT/HCPCS: 36415; 71045; 80048; 80076; 83735; 84443; 84484; 85025; 85027; 93005; 97110; 97116; 97162; 97166; 97530; 97535; 99285; A4216

== ENCOUNTER → 2021-04-21 | Outpatient (CLI) | payer MEDICARE, MEDICAID, SELFPAY ==
[2021-04-21 13:34] LABS: D-Dimer Quantitative (DVT/PE) 0.37 FEU/ug/m (0.27-0.49)
== END | disposition home or self-care (01) ==
LOC: LABSPEC 13:14
PROVIDERS: PCP Internal Medicine; Referring Provider Internal Medicine; Visit Provider Internal Medicine
DX: R06.02 Shortness of breath (principal)
CPT/HCPCS: 85379

== ENCOUNTER → 2021-04-28 11:17 | Outpatient (CLI) | payer MEDICARE, MEDICAID, SELFPAY ==
[2021-04-28 13:00] LABS: Thyroid Stim Hormone (TSH) 0.68 uIU/mL (0.358-3.74)
[2021-05-01 19:22] LABS: Anti-Thyroglobulin AB < 1.0 IU/mL (0.0-0.9); Thyroglobulin, Serum Qt. 40.5 ng/mL (1.5-38.5)
== END ==
PROVIDERS: PCP Internal Medicine; Referring Provider Internal Medicine Endocrinology, Diabetes & Metabolism; Visit Provider Internal Medicine Endocrinology, Diabetes & Metabolism
DX: C73 Malignant neoplasm of thyroid gland (principal)
CPT/HCPCS: 36415; 84432; 84443; 86800

== ENCOUNTER → 2021-05-04 11:51 | Outpatient (CLI) | payer MEDICARE, MEDICAID, SELFPAY ==
--- NOTE | 2021-05-04 11:54 | US_ITS ---
History: Thyroid nodule, status post right thyroidectomy Thyroid ultrasound: Comparison: September 06, 2015 and December 11, 2013 Findings: Absent right thyroid lobe. Previously noted nodule on the right has increased in size now measuring 2.5 x 1.4 cm. This nodule is spongiform. This nodule is benign and no FNA or follow-up is necessary. Left thyroid lobe measures 5.7 x 1.9 x 1.9 cm. 3 dominant nodules within the left lobe. Nodules remain spongiform in appearance and are also consistent with benign lesions. 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 12 month follow-up recommended. at 0949 Reported and signed by: Zuhair Cordon MD Electronically Signed: Zuhair Cordon MD at 9:48 EDT Tel , Service support , US/Thyroid
== END ==
PROVIDERS: PCP Internal Medicine; Referring Provider Internal Medicine Endocrinology, Diabetes & Metabolism; Visit Provider Internal Medicine Endocrinology, Diabetes & Metabolism
DX: C73 Malignant neoplasm of thyroid gland (principal)
CPT/HCPCS: 76536

== ENCOUNTER → 2021-05-29 12:47 | Outpatient (CLI) | payer MEDICARE, MEDICAID, SELFPAY ==
[2020-11-16 15:52] VITALS: BMI 32.3
--- NOTE | 2021-05-29 12:49 | BI_ITS ---
MAMMOGRAPHY - UNILATERAL SCREENING: LEFT BREAST REASON FOR EXAM: Female, 75 years old. Routine annual screening examination (unilateral). PERTINENT HISTORY: Personal history of breast cancer. Prior right mastectomy. Sister with breast cancer. Aunts with breast cancer. TECHNIQUE: Digital unilateral breast jimena (3D mammographic acquisition) in the CC and MLO projections. 2-D mediolateral oblique (MLO) and craniocaudad (CC) views of both breasts were obtained. CAD: Full Field Digital Mammography with Computer Added Detection was performed. COMPARISON: Comparison is made with prior examination dated 09/17/2019 and 09/16/2018. FINDINGS: Breast Composition: There are scattered areas of fibroglandular density. There are no dominant masses or suspicious calcifications. Stable scattered calcifications within the breast. No other significant abnormalities are identified. There has been no significant change since the prior study. BI/SCREEN MAMM (CAD) W/JIMENA UNI L IMPRESSION: Stable unilateral screening mammogram. Yearly follow-up mammogram recommended. (A) ASSESSMENT CATEGORY: BIRADS Category 2: Benign. A letter regarding these results will be sent to the patient by the facility within 30 days. Approximately 10% of breast cancers are not detected by mammography. A normal mammogram should not delay biopsy of a clinically suspicious abnormality. [id number] Electronically Signed: Yared Chan MD at 13:55 EST , Service support ,
== END ==
PROVIDERS: PCP Internal Medicine; Referring Provider Nurse Practitioner Family; Visit Provider Nurse Practitioner Family
DX: Z12.31 Encounter for screening mammogram for malignant neoplasm of breast (principal); Z85.3 Personal history of malignant neoplasm of breast
CPT/HCPCS: 77063; 77067

== ENCOUNTER → 2021-06-29 10:56 | Outpatient (CLI) | payer MEDICARE, MEDICAID, SELFPAY ==
[2021-06-29 11:15] LABS: CREATININE FINGERSTICK 0.8 mg/dL (0.55-1.02); EGFR FINGERSTICK > 60.0000 mL/min (>60)
--- NOTE | 2021-06-29 11:15 | MRI_ITS ---
STUDY: MRI LUMBAR SPINE WITH AND WITHOUT CONTRAST REASON FOR EXAM: Female, 75 years old. pain TECHNIQUE: Standardized fat and water weighted pulse sequences were obtained in the sagittal and axial planes. IV 17cc dotarem was administered for the contrast portion of the examination. COMPARISON: 09/21/2016 FINDINGS: T12-L1: Normal endplates. Normal disc height, hydration and morphology. Normal bilateral facet joints. Normal central canal and bilateral lateral recesses. Normal bilateral intervertebral neural foramina. Normal lumbar lordosis. Mild levoscoliosis centered at L3. Normal conus medullaris that terminates at the L1/L2. L1-2: Normal endplates. Normal disc height, hydration and morphology. Normal bilateral facet joints. Normal central canal and bilateral lateral recesses. Normal bilateral intervertebral neural foramina. L2-3: Status post discectomy, interbody fusion, posterior decompression, and transpedicular fixation with anatomic alignment with no spinal stenosis or neural foraminal stenosis. L3-4: Status post posterior decompression. No disc protrusion, spinal stenosis, or neural foraminal stenosis. L4-5: Status post posterior decompression. No disc protrusion, spinal stenosis, or neural foraminal stenosis. L5-S1: Status post posterior decompression. No disc protrusion, spinal stenosis, or neural foraminal stenosis. Normal visualized sacral ala. Normal visualized paraspinous soft tissue structures. There is no demonstrated abnormal enhancement. MRI/Spine Lumbar W/WO Contrast IMPRESSION: No change from 09/21/2016. Electronically Signed: Gareth Levy MD at 8:58 EST Tel , Service support ,
== END ==
PROVIDERS: PCP Internal Medicine; Referring Provider Orthopaedic Surgery; Visit Provider Orthopaedic Surgery
DX: M96.1 Postlaminectomy syndrome, not elsewhere classified (principal)
CPT/HCPCS: 72158; A9575

== ENCOUNTER → 2021-07-07 15:03 | Outpatient (CLI) | payer MEDICARE, MEDICAID, SELFPAY ==
[2021-07-07 15:19] LABS: Absolute Lymphocyte Count 1.22 X10^3/uL (0.83-4.51); Absolute Neutrophil Count 4.5 X10^3/uL (2.0-7.7); Basophil# 0.02 X10^3/uL; Basophil% 0.3 % (0-1); Eosinophil# 0.12 X10^3/uL; Eosinophils% 1.8 % (0-5); Hemoglobin 11.6 g/dL (12.0-15.0); Lymphocyte # 1.22 X10^3/ul (0.83-4.51); Lymphocyte % 18.7 % (19-41); Mean Corp Hgb Conc 32.2 g/dL (32-36); Mean Corpuscular Hgb 30.6 pg (27.0-32.0); Mean Platelet Vol. 9.5 fl (6.2-12.0); Monocyte# 0.68 X10^3/uL; Monocyte% 10.4 % (0-10); NRBC Flagged by Analyzer 0 % (0-5); Neutrophil # 4.47 X10^3/uL (2.7-7.7); Neutrophil % 68.3 % (47-70); Platelet Count 225 K/mm3 (150-450); RBC Distribution Width CV 12.6 % (11.6-14.6); RBC Distribution Width SD 43.5 fl (35.1-43.9); Red Blood Count 3.79 M/mm3 (4.2-5.4); White Blood Count 6.5 K/mm3 (4.4-11.0)
[2021-07-07 15:49] LABS: AST(SGOT) 9 U/L (15-37); Alanine Aminotransfer ALT/SGPT 16 U/L (13-56); Alkaline Phosphatase 28 U/L (45-117); Anion Gap 6 (5-15); BUN 29 mg/dL (7-18); BUN/Creat Ratio 41.5 RATIO (10-20); Calcium,Total 8.4 mg/dL (8.5-10.1); Chloride 107 mmol/L (98-107); EST Glomerular Filtration Rate 86 mL/min (>60); Est Glom Filt Rate - Afr Amer 105 mL/min (>60); Globulin 3.1 g/dL (2.2-4.2); Glucose 104 mg/dL (74-106); Potassium 3.5 mmol/L (3.5-5.1); Protein, Total 6.1 g/dL (6.4-8.2); Sodium Level 143 mmol/L (136-145); Troponin-I HS 9 pg/mL (3.0-54.0)
== END ==
PROVIDERS: PCP Internal Medicine; Visit Provider Internal Medicine
DX: R35.1 Nocturia (principal); R07.9 Chest pain, unspecified
CPT/HCPCS: 80053; 84484; 85025

== ENCOUNTER 2021-07-09 11:30 | Emergency (ER) | payer MEDICARE, MEDICAID, SELFPAY ==
[2021-07-09] VITALS (11 sets, daily range): BP systolic 104–142; BP diastolic 50–112; PULSE 77–163; RESP 13–27; TEMP 36.2; O2SAT 96–98; BMI 31.6
--- NOTE | 2021-07-09 12:08 | EKG12_ITS ---
Test Reason : PALP Blood Pressure : / mmHG Vent. Rate : 143 BPM Atrial Rate : 326 BPM P-R Int : 000 ms QRS Dur : 074 ms QT Int : 290 ms P-R-T Axes : 000 012 -35 degrees QTc Int : 447 ms Supraventricular tachycardia Nonspecific ST and T wave abnormality Abnormal ECG Confirmed by AYANA GONZALEZ, JORGE ([id number]), movie editor ALEXEY BILLINGS ([id number]) on 07/12/2021 9:37:57 AM Referred By: SEGUNDO Confirmed By:JORGE PIÑA MD
--- NOTE | 2021-07-09 12:08 | RAD_ITS ---
STUDY: X-RAY CHEST REASON FOR EXAM: Female, 75 years old. Cough TECHNIQUE: Single AP portable view of the chest. COMPARISON: 02/06/2021 FINDINGS: The lungs are clear and expanded. There is no demonstrated pleural abnormality. There is moderate cardiac enlargement. Normal mediastinum and kwaku. Normal visualized pulmonary arteries. Normal visualized aortic arch and descending thoracic aorta. Normal visualized thoracic spine. Normal visualized ribs, clavicles, and shoulders. There is no demonstrated abnormality of the visualized soft tissue structures of the upper abdomen. RAD/Chest 1 View (Portable) IMPRESSION: No active disease. Electronically Signed: Gareth Levy MD at 12:55 EST Tel , Service support ,
--- NOTE | 2021-07-09 12:11 | EDS_ITS ---
HPI History of Present Illness Chief Complaint: Palpitations Informant: patient Onset/Context/Timing Onset: Weeks (1) Context: Gradual Onset Timing: Continuous Quality: Weakness Location: Generalized Worsened by: Nothing Relieved by: Nothing Narrative Narrative: Patient presents with palpitations and general weakness that has been getting worse over the past week. Patient states she has noted some increasing weakness over the past week. Patient states she has had 3-4 near syncopal episodes. Patient states she started having some palpitations last night. Patient states that she has been having some intermittent chest pressure over the past week. Patient states it has been waxing and waning. Patient states nothing makes it better nothing makes it worse. Patient admits to some shortness of breath. Patient admits to some nausea but denies any vomiting. Josh miramontes also admits to some diarrhea. [facility] Medical History Atherosclerotic heart disease of [place] coronary artery without angina pectoris Atrial fibrillation Atrial fibrillation CAD (coronary artery disease) Chronic pain COPD (chronic obstructive pulmonary disease) Essential hypertension GERD (gastroesophageal reflux disease) Hx of deep vein thrombophlebitis of lower extremity Hyperlipidemia Insomnia Iron deficiency anemia due to chronic blood loss Lumbar spondylosis Obesity Obstructive sleep apnea Osteoarthritis Osteoporosis Paroxysmal atrial fibrillation Paroxysmal atrial tachycardia Personal history of pulmonary embolism port placement PORT REMOVAL Pure hypercholesterolemia PVD (peripheral vascular disease) Rectal prolapse Thyroid cancer Home Medications albuterol sulfate 2 puff INHALATION Q4H PRN PRN 06/16/13 [History Last Taken 10/01/17 08:00] omeprazole 20 mg PO DAILY 06/16/13 [History Last Taken 02/06/21] calcium citrate-vitamin D3 2 tab PO DAILY 10/24/18 [History Last Taken 02/06/21] zolpidem 6.25 mg PO QHS PRN PRN 03/24/19 [History Last Taken 02/05/21] Prolia 60 mg SUBCUT .[id number] 11/25/20 [History Last Taken 11/16/20] acetaminophen 1,300 mg PO DAILY PRN 11/25/20 [History Last Taken 02/05/21] hydrocodone-acetaminophen 1 tab PO TID 11/25/20 [History Last Taken 02/06/21] anastrozole 1 mg tablet 1 mg PO DAILY 90 Days #90 tab 01/04/21 [Rx Last Taken 02/06/21] Eliquis 5 mg PO BID 02/06/21 [History Last Taken 02/06/21] lisinopril-hydrochlorothiazide 1 tab PO DAILY 02/06/21 [History Last Taken 02/06/21] ondansetron HCl [Zofran] 4 mg PO TID 02/06/21 [History Last Taken Unknown] sotalol 80 mg tablet 80 mg PO BID #60 tab 02/27/21 [Rx Last Taken Unknown] pravastatin 20 mg tablet 20 mg PO QHS tab 04/28/21 [History Last Taken Unknown] diltiazem HCl [Cardizem CD] 120 mg PO BID #60 cap 07/09/21 [Rx Last Taken Unknown] Allergy/AdvReac Type Severity Reaction Status Date / Time niacin Allergy Intermediate I DON'T Verified 07/09/21 11:32 REMEMBER, I CAN'T TAKE IT bee stings Allergy Swelling Uncoded 07/09/21 11:32 Family History Brother Diabetes Heart disease Sister Breast cancer Mother Cancer brain and bone mets Aunt Breast cancer Grandmother Cancer Surgical History History of appendectomy History of cholecystectomy History of incisional hernia repair Hx of mastectomy S/P appendectomy S/P carpal tunnel release S/P cataract extraction S/P hysterectomy S/P lumbar discectomy S/P partial thyroidectomy S/P revision of total knee S/P right breast biopsy S/P total knee replacement Social History household members: none Smoking Status: Never smoker alcohol intake: never substance use type: does not use caffeine: No ROS ROS ED Constitutional Constitutional ED: Denies chills or fever(s) Eyes Eyes: Denies blurry vision or change in vision ENT ENT ED: Denies rhinorrhea or sore throat Cardiovascular Cardiovascular: Reports chest pain and palpitations Respiratory/Chest Respiratory/Chest: Reports dyspnea; Denies cough Gastrointestinal Gastrointestinal: Reports diarrhea and nausea; Denies vomiting Genitourinary Genitourinary ED: Denies dysuria or hematuria Musculoskeletal Musculoskeletal: Reports back pain; Denies neck pain Integumentary Denies abscess or rash Neurologic Neurologic: Denies headache(s) or weakness Allergic/Immunologic Allergic/Immunologic ED: Denies mouth swelling or urticaria EXAM Physical Exam Const Vital Signs: 07/09/21 11:32 07/09/21 11:42 07/09/21 12:24 Temperature 97.1 F L Temperature Source Temporal Pulse Rate 158 H 141 H 163 H Respiratory Rate 27 H Blood Pressure 135/96 H Blood Pressure Mean 109 Pulse Ox 96 Oxygen Delivery Method Room Air 07/09/21 12:25 07/09/21 12:48 07/09/21 12:54 Temperature Temperature Source Pulse Rate 143 H 79 77 Respiratory Rate 13 Blood Pressure 104/50 L Blood Pressure Mean 68 Pulse Ox 97 Oxygen Delivery Method Room Air 07/09/21 13:42 07/09/21 14:38 07/09/21 15:08 Temperature Temperature Source Pulse Rate 136 H 135 H Respiratory Rate 21 H Blood Pressure 106/90 H 130/112 H Blood Pressure Mean 95 118 Pulse Ox 97 Oxygen Delivery Method 07/09/21 15:33 Temperature Temperature Source Pulse Rate 91 Respiratory Rate 21 H Blood Pressure 129/69 H Blood Pressure Mean 89 Pulse Ox 98 Oxygen Delivery Method Room Air Positive well nourished and well developed General Appearance ED: well developed HEENT Reports moist mucous membranes Neck supple and no JVD Resp normal respiratory effort and clear to auscultation bilaterally Cardio no murmurs Rate: tachycardic Rhythm: abnormal rhythm irregularly irregular GI normal to inspection, nondistended, normoactive bowel sounds and non-tender Palpation: soft Extremity normal to inspection General Extremety ED: Negative for edema or tenderness General Extremity: Negative for edema Neuro oriented x3, CN's II-XII intact bilaterally and no sensory deficits noted Sensorium / Orientation: alert Motor Exam: strength 5/5 throughout Psych mental status grossly normal Skin no rashes or lesions noted MDM MDM MDM Narrative Medical decision making narrative: EKG was obtained. On my interpretation, it shows atrial fibrillation with a rate of 143. There are nonspecific ST-T wave changes. Portable 1 view chest x-ray was obtained. On my interpretation, lung guerra are clear. There is normal cardiac silhouette. Bony thorax is normal. There is no acute process noted. Radiologist also interpreted the x-ray and agrees. Patient was given a dose of Cardizem here. Patient's heart rate improved after this. CBC and comprehensive metabolic profile were obtained and were within normal limits with the exception of a mild hypokalemia of 3.3. Patient was given a dose of potassium here. PT was INR and PTT were within normal limits. Initial high-sensitivity troponin was 15. 2-hour repeat high-sensitivity troponin was 16. Urinalysis does not show any evidence of urinary tract infection. Patient heart rate increases back up into the 130s. Patient was given a repeat dose of Cardizem IV and a dose of p.o. Cardizem. And patient's heart rate improved again. Case was discussed with Dr. Rick from cardiology. He recommended starting the patient on Cardizem CD 120 mg twice daily. This is in addition to her normal sotalol. Patient was instructed to follow-up in 5-7 days. Patient understands and is agreeable with the plan. All questions were answered. Lab Data Attestation: I reviewed the patient's lab results. Labs: Laboratory Results - last 24 hr 07/09/21 07/09/21 07/09/21 11:14 11:14 11:14 WBC 6.7 RBC 4.02 L Hgb 12.6 Hct 36.8 L MCV 91.5 MCH 31.3 MCHC 34.2 D RDW Std Deviation 42.0 RDW Coeff of Jenna 12.7 Plt Count 246 MPV 9.5 Immature Gran % (Auto) 0.600 Neut % (Auto) 71.4 H Lymph % (Auto) 16.5 L Tyler % (Auto) 9.8 Eos % (Auto) 1.4 Baso % (Auto) 0.3 Absolute Neuts (auto) 4.8 Absolute Lymphs (auto) 1.10 Nucleated RBC % 0 PT 14.6 INR 1.2 APTT 34.1 Sodium 141 Potassium 3.3 L Chloride 105 Carbon Dioxide 27.0 Anion Gap 9 BUN 13 Creatinine 0.77 Estim Creat Clear Calc 44.10 Est GFR (MDRD) Af Amer 94 Est GFR (MDRD) Non-Af 77 BUN/Creatinine Ratio 16.9 Glucose 171 H Calcium 9.1 Total Bilirubin 0.50 AST 11 L ALT 16 Alkaline Phosphatase 30 L Troponin I High Sens 15 Total Protein 6.3 L Albumin 2.9 L Globulin 3.4 Albumin/Globulin Ratio 0.9 Urine Color Urine Clarity Urine pH Ur Specific [place] Urine Protein Urine Glucose (UA) Urine Ketones Urine Occult Blood Urine Nitrite Urine Bilirubin Urine Urobilinogen Ur Leukocyte Esterase Urine RBC Urine WBC Ur Squamous Epith Cells Urine Bacteria Urine Mucus 07/09/21 07/09/21 14:16 15:45 WBC RBC Hgb Hct MCV MCH MCHC RDW Std Deviation RDW Coeff of Jenna Plt Count MPV Immature Gran % (Auto) Neut % (Auto) Lymph % (Auto) Tyler % (Auto) Eos % (Auto) Baso % (Auto) Absolute Neuts (auto) Absolute Lymphs (auto) Nucleated RBC % PT INR APTT Sodium Potassium Chloride Carbon Dioxide Anion Gap BUN Creatinine Estim Creat Clear Calc Est GFR (MDRD) Af Amer Est GFR (MDRD) Non-Af BUN/Creatinine Ratio Glucose Calcium Total Bilirubin AST ALT Alkaline Phosphatase Troponin I High Sens 16 Total Protein Albumin Globulin Albumin/Globulin Ratio Urine Color Yellow Urine Clarity Clear Urine pH 7.0 Ur Specific [place] 1.005 Urine Protein Negative Urine Glucose (UA) Normal Urine Ketones Negative Urine Occult Blood Negative Urine Nitrite Negative Urine Bilirubin Negative Urine Urobilinogen Normal Ur Leukocyte Esterase 100 H Urine RBC 0 SEEN Urine WBC 0 SEEN Ur Squamous Epith Cells 0-5 SEEN Urine Bacteria 2+ Urine Mucus 0 SEEN Radiography Chest X-Ray - ED: 1 View, Read by ED Physician, Read by Radiologist and Normal Diagnostic Testing: Clinical Impression(s) from Imaging Studies Chest X-Ray 07/09/21 12:08 IMPRESSION: No active disease. Electronically Signed: Gareth Levy MD at 12:55 EST Tel , Service support , EKG Initial EKG: Interpretation: Atrial Fibrillation (143) and Non-Specific ST Changes Discharge Plan Triage Chief Complaint: Palpitations ED Provider: Aníbal Haddad Dx/Rx/DC Orders Clinical Impression: Atrial fibrillation Instructions: ED AFIB Prescriptions: New diltiazem HCl [Cardizem CD] 120 mg capsule,extended release 24hr 120 mg PO BID Qty: 60 RF: 0 No Action omeprazole 20 MG capsule 20 mg PO DAILY RF: 0 albuterol sulfate 1 PUFF inhaler 2 puff INHALATION Q4H PRN PRN (Reason: Asthma) RF: 0 zolpidem 12.5 MG tablet,ext release multiphase 6.25 mg PO QHS PRN PRN (Reason: Insomnia) RF: 0 calcium citrate-vitamin D3 1 EACH tablet 2 tab PO DAILY RF: 0 hydrocodone-acetaminophen 5-325 mg tablet 1 tab PO TID RF: 0 acetaminophen 650 mg Tablet Extended Release 1,300 mg PO DAILY PRN (Reason: Pain) RF: 0 Prolia 60 mg/mL Syringe 60 mg SUBCUT .[id number] RF: 0 Eliquis 5 mg tablet 5 mg PO BID RF: 0 ondansetron HCl [Zofran] 4 mg tablet 4 mg PO TID RF: 0 lisinopril-hydrochlorothiazide 10-12.5 mg tablet 1 tab PO DAILY RF: 0 pravastatin 20 mg tablet 20 mg PO QHS RF: 0 anastrozole 1 mg tablet 1 mg PO DAILY 90 Days Qty: 90 RF: 3 sotalol 80 mg tablet 80 mg PO BID Qty: 60 RF: 11 Primary Care Provider: Jessica Aguero Referrals: Jessica Aguero DO [Primary Care Provider] - 3-5 Days Disposition Disposition: Home, Self Care
[2021-07-09] MEDS: dilTIAZem 25 MG/5 ML Vial IV BOLUS (12:23)
[2021-07-09] MEDS: 0.9% Normal Saline 1,000 ML 1000 ML IV (12:23)
[2021-07-09 12:33] LABS: Absolute Neutrophil Count 4.8 X10^3/uL (2.0-7.7); Basophil# 0.02 X10^3/uL; Basophil% 0.3 % (0-1); Eosinophil# 0.09 X10^3/uL; Eosinophils% 1.4 % (0-5); Hematocrit 36.8 % (37-47); Hemoglobin 12.6 g/dL (12.0-15.0); Lymphocyte % 16.5 % (19-41); Mean Corp Hgb Conc 34.2 g/dL (32-36); Mean Corpuscular Hgb 31.3 pg (27.0-32.0); Mean Corpuscular Volume 91.5 fL (81-99); Mean Platelet Vol. 9.5 fl (6.2-12.0); Monocyte# 0.65 X10^3/uL; Monocyte% 9.8 % (0-10); NRBC Flagged by Analyzer 0 % (0-5); Neutrophil # 4.75 X10^3/uL (2.7-7.7); Neutrophil % 71.4 % (47-70); Platelet Count 246 K/mm3 (150-450); RBC Distribution Width CV 12.7 % (11.6-14.6); Red Blood Count 4.02 M/mm3 (4.2-5.4); White Blood Count 6.7 K/mm3 (4.4-11.0)
[2021-07-09 12:37] LABS: International Normalized Ratio 1.2; Prothrombin Time (Protime)PT. 14.6 SECONDS (11.7-14.9)
[2021-07-09 12:38] LABS: Partial Thromboplast Time 34.1 Seconds (24.1-36.2)
[2021-07-09 12:47] LABS: ALB/GLOB Ratio 0.9 RATIO (0.9-2.4); AST(SGOT) 11 U/L (15-37); Alanine Aminotransfer ALT/SGPT 16 U/L (13-56); Albumin, Serum 2.9 g/dL (3.2-5.0); Alkaline Phosphatase 30 U/L (45-117); Anion Gap 9 (5-15); BUN 13 mg/dL (7-18); BUN/Creat Ratio 16.9 RATIO (10-20); Calcium,Total 9.1 mg/dL (8.5-10.1); Chloride 105 mmol/L (98-107); Creatinine, Serum 0.77 mg/dL (0.55-1.02); EST Glomerular Filtration Rate 77 mL/min (>60); Est Glom Filt Rate - Afr Amer 94 mL/min (>60); Globulin 3.4 g/dL (2.2-4.2); Glucose 171 mg/dL (74-106); Potassium 3.3 mmol/L (3.5-5.1); Protein, Total 6.3 g/dL (6.4-8.2); Sodium Level 141 mmol/L (136-145); Troponin-I HS 15 pg/mL (3.0-54.0)
[2021-07-09 14:20] LABS: Mucous, Urine 0 SEEN /hpf (<or=2+); Red Blood Cells-Urine 0 SEEN /hpf (0-5); White Blood Cells 0 SEEN /hpf (0-5)
[2021-07-09 14:24] LABS: Color, Urine Yellow (Yellow); Glucose, Dipstick Normal (Normal); Ketone-Dipstick Negative (Negative); Leukocyte Esterase-Dipstick 100 /ul (Negative); Nitrite-Dipstick Negative (Negative); Occult Blood-Urine Negative /ul (Negative); Protein-Dipstick Negative (Negative); Specific Gravity, Urine 1.005 (1.002-1.030); Urine Bilirubin Dipstick Negative (Negative); Urine Clarity Clear (Clear); Urine Urobilinogen Normal (Normal)
[2021-07-09 14:35] LABS: Bacteria 2+ /hpf (None Seen); Squamous Epithelial Cells - UA 0-5 SEEN /hpf (5-10)
[2021-07-09] MEDS: dilTIAZem 60 MG Tablet PO (15:10)
[2021-07-09] MEDS: dilTIAZem 25 MG/5 ML Vial 10 MG IV BOLUS (15:10)
[2021-07-09 16:09] LABS: Troponin-I HS 16 pg/mL (3.0-54.0)
[2021-07-09] MEDS: Potassium Chloride Oral Tablet 20 MEQ 40 MEQ PO (16:34)
== END 2021-07-09 16:38 | disposition home or self-care (01) ==
PROVIDERS: Emergency Provider Emergency Medicine; PCP Internal Medicine
DX: I48.0 Paroxysmal atrial fibrillation (principal); I25.10 Atherosclerotic heart disease of native coronary artery without angina pectoris; K21.9 Gastro-esophageal reflux disease without esophagitis; G47.33 Obstructive sleep apnea (adult) (pediatric); J44.9 Chronic obstructive pulmonary disease, unspecified; E78.00 Pure hypercholesterolemia, unspecified; I10 Essential (primary) hypertension; Z79.01 Long term (current) use of anticoagulants; Z79.899 Other long term (current) drug therapy; Z86.711 Personal history of pulmonary embolism
CPT/HCPCS: 71045; 80053; 81001; 84484; 85025; 85610; 85730; 93005; 96361; 96374; 96376; 99284; J7030; A4216

== ENCOUNTER 2021-07-11 11:48 | Emergency (ER) | payer MEDICARE, MEDICAID, SELFPAY ==
[2021-07-11] VITALS (8 sets, daily range): BP systolic 92–141; BP diastolic 73–101; PULSE 84–152; RESP 16–23; TEMP 36.1; O2SAT 93–98; BMI 30.9
--- NOTE | 2021-07-11 12:02 | RAD_ITS ---
STUDY: X-RAY CHEST REASON FOR EXAM: Female, 75 years old. Rales, dyspnea, pedal edema TECHNIQUE: Single AP portable view of the chest. COMPARISON: Comparison is made with prior study dated 07/09/2021. FINDINGS: EKG electrodes are seen Blunting of the left costophrenic angle with minimal increased markings at the left lung base. There is mild cardiac enlargement. Normal mediastinum and kwaku. Normal visualized pulmonary arteries. There is atherosclerotic calcification of the aortic arch with tortuosity. There are diffuse degenerative changes of the visualized thoracic spine. Normal visualized ribs, clavicles, and shoulders. Moderate sized hiatal hernia. RAD/Chest 1 View (Portable) IMPRESSION: Blunting of the left costophrenic angle with minimal increased markings at the left lung base. Hiatal hernia. Electronically Signed: Yared Chan MD at 12:22 EST , Service support ,
--- NOTE | 2021-07-11 12:03 | EKG12_ITS ---
Test Reason : TACHY Blood Pressure : / mmHG Vent. Rate : 150 BPM Atrial Rate : 153 BPM P-R Int : 192 ms QRS Dur : 078 ms QT Int : 260 ms P-R-T Axes : 003 007 -68 degrees QTc Int : 410 ms Atrial Flutter Left axis deviation Low voltage QRS Nonspecific ST and T wave abnormality Confirmed by AYANA GONZALEZ, JORGE ([id number]), web editor ALEXEY BILLINGS ([id number]) on 07/17/2021 8:29:29 AM Referred By: SHARON Confirmed By:JORGE PIÑA MD
--- NOTE | 2021-07-11 12:04 | EDS_ITS ---
HPI History of Present Illness Chief Complaint: Chest Pain Detail of Chief Complaint: Left-sided chest pain, dyspnea, atrial fibrillation Informant: patient Onset/Context/Timing Onset: Hours Activity at onset: sudden Timing: Waxes and wanes Quality: Positive for Aching and Dull Location: Left Parasternal Current Severity: Moderate Maximum Severity: Moderate Worsened By: Nothing Relieved By: Nothing Associated Symptoms: Positive for Dyspnea, Lightheadedness and Palpitations; Negative for Nausea, Vomiting, Diaphoresis, Cough, Fever and Acid Reflux Narrative Narrative: Patient is a 75-year-old woman with history atrial fibrillation on anticoagulant who was seen this past weekend and treated with Cardizem and discharged with prescription for Cardizem. Per old records history of atherosclerotic heart disease without angina. She does have history of hypercholesterolemia cancer, [place] filter iron deficiency anemia due to chronic blood loss. She presents because of left-sided chest dull aching sensation with shortness of breath and palpitations. Patient states she is compliant with her medication. She denies fever, chills night sweats. She denies increased orthopnea. She is uncertain whether her legs are more swollen than they were this past weekend. She denies black or maroon-colored stool. She denies abdominal pain. She denies infectious symptoms. Prior Similar Symptoms: Yes (A. fib RVR) Recent Illness/Hospitalization: Yes (Saturday) CVD Risk Factors: Positive for Hypertension and Hypercholesterolemia; Negative for Family History 1' </=55 PE Risk Factors: Positive for Cancer; Negative for Recent Travel/Surgery, Recent Immobilization, Prior DVT or PE and OCP + Smoking + >/=35 TAD Risk Factors: Negative for Marfan's Syndrome, Hypertension and Family History PFSH [facility] Medical History Atherosclerotic heart disease of [place] coronary artery without angina pectoris Atrial fibrillation Atrial fibrillation CAD (coronary artery disease) Chronic pain COPD (chronic obstructive pulmonary disease) Essential hypertension GERD (gastroesophageal reflux disease) Hx of deep vein thrombophlebitis of lower extremity Hyperlipidemia Insomnia Iron deficiency anemia due to chronic blood loss Lumbar spondylosis Obesity Obstructive sleep apnea Osteoarthritis Osteoporosis Paroxysmal atrial fibrillation Paroxysmal atrial tachycardia Personal history of pulmonary embolism port placement PORT REMOVAL Pure hypercholesterolemia PVD (peripheral vascular disease) Rectal prolapse Thyroid cancer Home Medications albuterol sulfate 2 puff INHALATION Q4H PRN PRN 06/16/13 [History Last Taken 10/01/17 08:00] omeprazole 20 mg PO DAILY 06/16/13 [History Last Taken 07/11/21] calcium citrate-vitamin D3 2 tab PO DAILY 10/24/18 [History Last Taken 07/11/21] zolpidem 6.25 mg PO QHS PRN PRN 03/24/19 [History Last Taken 07/10/21] Prolia 60 mg SUBCUT .[id number] 11/25/20 [History Last Taken 05/22/21] acetaminophen 1,300 mg PO DAILY PRN 11/25/20 [History Last Taken 07/11/21] hydrocodone-acetaminophen 1 tab PO TID 11/25/20 [History Last Taken 07/10/21] anastrozole 1 mg tablet 1 mg PO DAILY 90 Days #90 tab 01/04/21 [Rx Last Taken 07/11/21] Eliquis 5 mg PO BID 02/06/21 [History Last Taken 07/11/21] lisinopril-hydrochlorothiazide 1 tab PO DAILY 02/06/21 [History Last Taken 1 09/09/20] sotalol 80 mg tablet 80 mg PO BID #60 tab 02/27/21 [Rx Last Taken 07/11/21] pravastatin 20 mg tablet 20 mg PO QHS tab 04/28/21 [History Last Taken 07/10/21] diltiazem HCl [Cardizem CD] 120 mg PO BID #60 cap 07/09/21 [Rx Last Taken 07/11/21] Allergy/AdvReac Type Severity Reaction Status Date / Time niacin Allergy Intermediate I DON'T Verified 07/09/21 11:32 REMEMBER, I CAN'T TAKE IT bee stings Allergy Swelling Uncoded 07/09/21 11:32 Family History Brother Diabetes Heart disease Sister Breast cancer Mother Cancer brain and bone mets Aunt Breast cancer Grandmother Cancer Surgical History History of appendectomy History of cholecystectomy History of incisional hernia repair Hx of mastectomy S/P appendectomy S/P carpal tunnel release S/P cataract extraction S/P hysterectomy S/P lumbar discectomy S/P partial thyroidectomy S/P revision of total knee S/P right breast biopsy S/P total knee replacement Social History household members: none Smoking Status: Never smoker alcohol intake: never substance use type: does not use caffeine: No ROS ROS ED Constitutional Constitutional ED: Denies chills, fever(s), subjective, sweats or weight loss Eyes Eyes: Reports none ENT ENT ED: Denies ear pain, rhinorrhea or sore throat Cardiovascular Cardiovascular: Reports as per HPI and orthopnea; Denies paroxysmal nocturnal dyspnea Respiratory/Chest Respiratory/Chest: Reports dyspnea, dyspnea on exertion and orthopnea; Denies cough, paroxysmal nocturnal dyspnea or sputum Gastrointestinal Gastrointestinal: Denies abdominal pain, constipation, diarrhea, melena, nausea or vomiting Genitourinary Genitourinary ED: Denies dysuria, hematuria or urinary frequency Musculoskeletal Musculoskeletal: Denies arthralgias, back pain, myalgias or neck pain Integumentary Denies rash Neurologic Neurologic: Denies headache(s), paresthesias or weakness Endocrine Endocrinology: Denies polydipsia, polyphagia or polyuria Hematologic/Lymphatic Hematologic/Lymphatic: Reports easy bruising; Denies easy bleeding EXAM Physical Exam Narrative Exam Narrative: Monitor reveals atrial fibrillation with RVR. She is in respiratory distress. She does not appear well. Const Vital Signs: 07/11/21 11:48 07/11/21 11:53 07/11/21 12:51 Temperature 97.0 F L Temperature Source Temporal Pulse Rate 152 H 147 H Pulse Rate [1 (Initial Baseline)] Pulse Rate [2] Pulse Rate [3] Pulse Rate [4] Respiratory Rate 16 18 Respiratory Rate [1 (Initial Baseline)] Respiratory Rate [2] Respiratory Rate [3] Respiratory Rate [4] Respiratory Effort Short of Breath Accessory Muscle Use Respiratory Pattern Tachypnea Blood Pressure 141/86 H 138/101 H Blood Pressure [1 (Initial Baseline)] Blood Pressure [2] Blood Pressure [3] Blood Pressure [4] Blood Pressure Mean 104 113 Pulse Ox 95 Oxygen Delivery Method Room Air Room Air Oxygen Delivery Method [1 (Initial Baseline)] Oxygen Delivery Method [2] Oxygen Delivery Method [3] Oxygen Delivery Method [4] Oxygen Flow Rate (L/min) Oxygen Flow Rate (L/min) [1 (Initial Baseline)] Oxygen Flow Rate (L/min) [2] Oxygen Flow Rate (L/min) [3] Fraction of Inspired Oxygen (FIO2) [3] Fraction of Inspired Oxygen (FIO2) [4] 07/11/21 13:18 07/11/21 13:51 07/11/21 14:06 Temperature Temperature Source Pulse Rate 99 89 Pulse Rate [1 (Initial Baseline)] 104 H Pulse Rate [2] 84 Pulse Rate [3] 84 Pulse Rate [4] 85 Respiratory Rate 23 H 17 Respiratory Rate [1 (Initial Baseline)] 22 H Respiratory Rate [2] 20 H Respiratory Rate [3] 18 Respiratory Rate [4] 16 Respiratory Effort Respiratory Pattern Blood Pressure 123/78 H 107/73 Blood Pressure [1 (Initial Baseline)] 102/73 Blood Pressure [2] 115/81 H Blood Pressure [3] 126/75 H Blood Pressure [4] 107/73 Blood Pressure Mean 93 84 Pulse Ox 95 96 Oxygen Delivery Method Nasal Cannula Room Air Oxygen Delivery Method [1 (Initial Baseline)] Nasal Cannula Oxygen Delivery Method [2] Nasal Cannula Oxygen Delivery Method [3] Nasal Cannula Oxygen Delivery Method [4] Room Air Oxygen Flow Rate (L/min) 2 Oxygen Flow Rate (L/min) [1 (Initial Baseline)] 2 Oxygen Flow Rate (L/min) [2] 2 Oxygen Flow Rate (L/min) [3] 2 Fraction of Inspired Oxygen (FIO2) [3] 97 Fraction of Inspired Oxygen (FIO2) [4] 98 07/11/21 14:11 07/11/21 14:16 Temperature Temperature Source Pulse Rate 86 85 Pulse Rate [1 (Initial Baseline)] Pulse Rate [2] Pulse Rate [3] Pulse Rate [4] Respiratory Rate 22 H 20 H Respiratory Rate [1 (Initial Baseline)] Respiratory Rate [2] Respiratory Rate [3] Respiratory Rate [4] Respiratory Effort Respiratory Pattern Blood Pressure 121/73 H 92/78 Blood Pressure [1 (Initial Baseline)] Blood Pressure [2] Blood Pressure [3] Blood Pressure [4] Blood Pressure Mean Pulse Ox 96 96 Oxygen Delivery Method Room Air Room Air Oxygen Delivery Method [1 (Initial Baseline)] Oxygen Delivery Method [2] Oxygen Delivery Method [3] Oxygen Delivery Method [4] Oxygen Flow Rate (L/min) Oxygen Flow Rate (L/min) [1 (Initial Baseline)] Oxygen Flow Rate (L/min) [2] Oxygen Flow Rate (L/min) [3] Fraction of Inspired Oxygen (FIO2) [3] Fraction of Inspired Oxygen (FIO2) [4] Positive well nourished, well developed and obese General Appearance ED: well developed; Negative for NAD or pallor Nutritional Appearance: obese HEENT Reports TM's clear and moist mucous membranes normocephalic Tympanic Membrane ED: Yes TM's clear Eyes PERRL and EOMs intact bilaterally General Eye ED: Negative for pale conjunctiva or scleral icterus Neck no lymphadenopathy, supple and no JVD Chest Wall inspection of chest normal Resp No normal respiratory effort Effort and Inspection: Negative for respiratory distress Auscultation: rales bilateral base Cardio no murmurs Rate: tachycardic Rhythm: abnormal rhythm GI normal to inspection, nondistended, normoactive bowel sounds, soft to palpation and non-tender Back/Spine no CVA tenderness and no thoracic nor lumbar tenderness Extremity normal to inspection General Extremety ED: Yes edema; Negative for tenderness General Extremity: edema Neuro oriented x3 and CN's II-XII intact bilaterally Sensorium / Orientation: awake and alert Psych mental status grossly normal Skin no rashes or lesions noted and no wounds General Skin Exam: Negative for jaundice or pallor Heart Score History: Slightly/Non-Suspicious Age: >/= 65 years Risk Factors: >/= 3 Risk Factors or History of CAD Score: 4 MDM MDM MDM Narrative Medical decision making narrative: Patient with A. fib and RVR suspect this is the cause of her chest pain and dyspnea. EKG was obtained to rule out acute cardiac ischemia. Will give dose of Cardizem for rate control. Patient states is never been cardioverted. After reviewing records patient received 20 mg of Cardizem. Case was cussed with Dr. Claudia Triplett. He recommended cardioversion. Patient was explained risk benefits of deep sedation using propofol and cardioversion. Her questions were answered to her satisfaction. Lab Data Attestation: I reviewed the patient's lab results. Labs: Laboratory Results - last 24 hr 07/11/21 07/11/21 07/11/21 12:05 12:05 12:05 WBC 7.6 RBC 4.10 L Hgb 12.6 Hct 38.2 MCV 93.2 MCH 30.7 MCHC 33.0 RDW Std Deviation 44.5 H RDW Coeff of Jenna 13.0 Plt Count 232 MPV 9.2 Immature Gran % (Auto) 0.400 Neut % (Auto) 74.7 H Lymph % (Auto) 14.9 L [place] % (Auto) 8.4 Eos % (Auto) 1.3 Baso % (Auto) 0.3 Absolute Neuts (auto) 5.7 Absolute Lymphs (auto) 1.14 Nucleated RBC % 0 Sodium 141 Potassium 3.7 Chloride 105 Carbon Dioxide 27.0 Anion Gap 9 BUN 17 Creatinine 0.86 Estim Creat Clear Calc 49.30 Est GFR (MDRD) Af Amer 82 Est GFR (MDRD) Non-Af 68 BUN/Creatinine Ratio 19.7 Glucose 158 H Calcium 9.0 Total Bilirubin 0.60 AST 7 L ALT 18 Alkaline Phosphatase 33 L Troponin I High Sens 11 B-Natriuretic Peptide 166.5 H Total Protein 6.4 Albumin 3.0 L Globulin 3.4 Albumin/Globulin Ratio 0.9 Radiography Chest X-Ray - ED: 1 View and Read by ED Physician (There is evidence of hiatal hernia. Cardiac silhouette and size are unremarkable. There is no perihilar lymphadenopathy. Ostia structures are unremarkable. There appears to be a small effusion left costophrenic angle.) Diagnostic Testing: Clinical Impression(s) from Imaging Studies Chest X-Ray 07/11/21 12:02 IMPRESSION: Blunting of the left costophrenic angle with minimal increased markings at the left lung base. Hiatal hernia. Electronically Signed: Yared Chan MD at 12:22 EST , Service support , EKG Initial EKG: Interpretation: Atrial Flutter (Rate of 150. Computer is reading sinus tach which is incorrect. There is a left axis. QRS duration 78 ms. QT duration 260 ms. There is evidence of low voltage. There is nonspecific ST-T wave changes which is probably artifact because of motion.) Procedures Other Procedures Procedure(s): 1. Deep sedation using propofol 2. Cardioversion synchronized mode 150 J Timeout was called. Onset of procedure 1351. Procedure completed at 1357. Initial rhythm A. fib with RVR rate of 137. Once patient was appropriately anesthetized. She was cardioverted using 150 J synchronized mode. Patient was successfully cardioverted to sinus rhythm. Rhythm is sinus with an occasional PAC and rate of 86. Critical Care Time Critical Care Time: Yes Critical care time (excluding procedures): 30-74 minutes (31 minutes), Including time spent: (, Physical, review of prior records, documentation interpretation laboratory results), Discussing w/Patient &/or Family/Judo Instructor ([place] with patient and family regarding treatment plan after discussion with Dr. Claudia Triplett), Discussing w/Consultants (Patient's case was reviewed with Dr. Claudia Triplett.) and Performing Direct Patient Care at Bedside Discharge Plan Triage Chief Complaint: Chest Pain ED Provider: Yovani Fischer Dx/Rx/DC Orders Clinical Impression: Atrial fibrillation with rapid ventricular response, Atrial fibrillation status post cardioversion Instructions: ED AFIB, ED Cardioversion, Electrical Prescriptions: No Action omeprazole 20 MG capsule 20 mg PO DAILY RF: 0 albuterol sulfate 1 PUFF inhaler 2 puff INHALATION Q4H PRN PRN (Reason: Asthma) RF: 0 zolpidem 12.5 MG tablet,ext release multiphase 6.25 mg PO QHS PRN PRN (Reason: Insomnia) RF: 0 calcium citrate-vitamin D3 1 EACH tablet 2 tab PO DAILY RF: 0 hydrocodone-acetaminophen 5-325 mg tablet 1 tab PO TID RF: 0 acetaminophen 650 mg Tablet Extended Release 1,300 mg PO DAILY PRN (Reason: Pain) RF: 0 Prolia 60 mg/mL Syringe 60 mg SUBCUT .[id number] RF: 0 Eliquis 5 mg tablet 5 mg PO BID RF: 0 lisinopril-hydrochlorothiazide 10-12.5 mg tablet 1 tab PO DAILY RF: 0 pravastatin 20 mg tablet 20 mg PO QHS RF: 0 diltiazem HCl [Cardizem CD] 120 mg capsule,extended release 24hr 120 mg PO BID Qty: 60 RF: 0 anastrozole 1 mg tablet 1 mg PO DAILY 90 Days Qty: 90 RF: 3 sotalol 80 mg tablet 80 mg PO BID Qty: 60 RF: 11 Primary Care Provider: Jessica Aguero Referrals: Jessica Aguero DO [Primary Care Provider] - Uziel Rick MD [STAFF PHYSICIAN] - 5-7 Days Activity Restrictions/Additional Instructions: Call Dr. Rick's office for appointment to be seen next week. Continue taking your anticoagulant Disposition Disposition: Home, Self Care
[2021-07-11 12:21] LABS: Absolute Lymphocyte Count 1.14 X10^3/uL (0.83-4.51); Absolute Neutrophil Count 5.7 X10^3/uL (2.0-7.7); Basophil# 0.02 X10^3/uL; Basophil% 0.3 % (0-1); Eosinophils% 1.3 % (0-5); Hematocrit 38.2 % (37-47); Hemoglobin 12.6 g/dL (12.0-15.0); Lymphocyte # 1.14 X10^3/ul (0.83-4.51); Lymphocyte % 14.9 % (19-41); Mean Corpuscular Hgb 30.7 pg (27.0-32.0); Mean Corpuscular Volume 93.2 fL (81-99); Mean Platelet Vol. 9.2 fl (6.2-12.0); Monocyte# 0.64 X10^3/uL; Monocyte% 8.4 % (0-10); NRBC Flagged by Analyzer 0 % (0-5); Neutrophil % 74.7 % (47-70); Platelet Count 232 K/mm3 (150-450); RBC Distribution Width SD 44.5 fl (35.1-43.9); White Blood Count 7.6 K/mm3 (4.4-11.0)
[2021-07-11 12:36] LABS: ALB/GLOB Ratio 0.9 RATIO (0.9-2.4); AST(SGOT) 7 U/L (15-37); Alanine Aminotransfer ALT/SGPT 18 U/L (13-56); Alkaline Phosphatase 33 U/L (45-117); Anion Gap 9 (5-15); BUN 17 mg/dL (7-18); BUN/Creat Ratio 19.7 RATIO (10-20); Chloride 105 mmol/L (98-107); Creatinine, Serum 0.86 mg/dL (0.55-1.02); EST Glomerular Filtration Rate 68 mL/min (>60); Est Glom Filt Rate - Afr Amer 82 mL/min (>60); Globulin 3.4 g/dL (2.2-4.2); Glucose 158 mg/dL (74-106); Potassium 3.7 mmol/L (3.5-5.1); Protein, Total 6.4 g/dL (6.4-8.2); Sodium Level 141 mmol/L (136-145); Troponin-I HS 11 pg/mL (3.0-54.0)
[2021-07-11] MEDS: dilTIAZem 25 MG/5 ML Vial 20 MG IV BOLUS (12:51)
[2021-07-11 12:55] LABS: BNP,B-Type NATRIURETIC PEPTIDE 166.5 pg/mL (0-100)
[2021-07-11] MEDS: Propofol 200 MG/20 ML Vial IV BOLUS (14:07)
--- NOTE | 2021-07-11 15:30 | CM.ED ---
ALFONSO Note Referral Source: MD Referral Reason: Discharge Planning ALFONSO met with patient and her sister in law. Patient gave permission to speak to her in the presence of her sister in law. Patient had been on the phone with her son when this telegraphic typewriter installer came into the room. SW discussed what patient's Perception of the plan is and patient said well, the doctor wants me to stay 24 hours because of my heart. Patient was asked if she had been to SNF in the past and she said at [facility] and [facility]. Patient said that she was coming into the hospital as the doctor wanted me to. Patient said that she would be in the hospital for 24 hours and expressed concern about her dog. 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 Patient said that she has a medic alert. 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 Patient also said that she has a [facility] provider who visits her 1x a week. ALFONSO updated RN and MD and patient per MD is able to be discharged. ALFONSO met with patient and her sister in law. Patient said that her sister in law will stay with her tonight and then her son will come tomorrow. Patient reports no concerns or issues with discharge home. MD discharged patient. Plan: Home. Patient has resources including [facility], [facility] and medic alert Latricia VASQUEZ
== END 2021-07-11 15:58 | disposition home or self-care (01) ==
PROVIDERS: Emergency Provider Emergency Medicine; PCP Internal Medicine
DX: I48.0 Paroxysmal atrial fibrillation (principal); R07.89 Other chest pain; Z79.01 Long term (current) use of anticoagulants; Z79.899 Other long term (current) drug therapy; R42 Dizziness and giddiness; I25.10 Atherosclerotic heart disease of native coronary artery without angina pectoris; G89.29 Other chronic pain; J44.9 Chronic obstructive pulmonary disease, unspecified; I10 Essential (primary) hypertension; K21.9 Gastro-esophageal reflux disease without esophagitis; E78.5 Hyperlipidemia, unspecified; E66.9 Obesity, unspecified; Z86.711 Personal history of pulmonary embolism; G47.33 Obstructive sleep apnea (adult) (pediatric); R06.03 Acute respiratory distress; R60.0 Localized edema; R06.00 Dyspnea, unspecified; I48.92 Unspecified atrial flutter
CPT/HCPCS: 92960; 71045; 80053; 83880; 84484; 85025; 93005; 96374; 99152; 99285; J7030; A4216

== ENCOUNTER 2021-07-17 11:51 | Emergency (ER) | payer MEDICARE, MEDICAID, SELFPAY ==
[2021-07-17 11:52] VITALS: BP 103/62; PULSE 67; RESP 18; TEMP 36.2; O2SAT 98; BMI 30.9
--- NOTE | 2021-07-17 12:28 | EKG12_ITS ---
Test Reason : WEAKNESS Blood Pressure : / mmHG Vent. Rate : 056 BPM Atrial Rate : 056 BPM P-R Int : 262 ms QRS Dur : 076 ms QT Int : 458 ms P-R-T Axes : 096 013 044 degrees QTc Int : 441 ms Sinus bradycardia with 1st degree A-V block Otherwise normal ECG Confirmed by MISTY GONZALEZ, JILL ([id number]), publications editor GUERDA GUTIERREZ ([id number]) on 07/20/2021 9:11:56 AM Referred By: PL Confirmed By:JILL JAY MD
--- NOTE | 2021-07-17 12:37 | RAD_ITS ---
INDICATION: chest pain EXAMINATION/TECHNIQUE: X-RAY - XR Chest 1 View COMPARISON: 07/11/2021. FINDINGS: LINES/DEVICES: None. LUNGS: Prominence of the bronchovascular and interstitial lung markings is visualized bilaterally, subtle haziness of subsegmental atelectatic streaks visualized in the left lower lung field, blunting of bilateral costophrenic angles is seen would recommend clinical correlation for scarring secondary to aspiration or aspiration pneumonia. MEDIASTINUM AND CARDIOVASCULAR STRUCTURES: Mild prominence of the cardiovascular silhouette is seen, atherosclerotic calcifications visualized in the aortic arch. Calcification of the tracheobronchial tree is seen. Moderate-sized hiatus hernia is seen that demonstrates no significant change in comparison to the prior study. BONES AND SOFT TISSUES: Bone demineralization and degenerative bone changes seen. RAD/Chest 1 View (Portable) IMPRESSION: Prominence of the bronchovascular interstitial lung markings is seen most prominent in the lower lung guerra, this could be reactive if 2 gastroesophageal reflux disease, cannot rule out aspiration/aspiration pneumonia. Electronically Signed: Ian Myers MD at 13:02 EST Tel , Service support ,
--- NOTE | 2021-07-17 12:39 | EX.ED.DYSGE1 ---
HPI History of Present Illness Chief Complaint: Weakness Informant: patient and family Narrative Narrative: It takes some time to get the reason for visit from the patient. After extensive discussion I find out that she has been having intermittent episodes of weakness. She feels she gets intermittent atrial fibrillation. When she gets this she gets chest discomfort on the left. She also feels very weak and no energy. She was at a routine visit to her deputy k 9 today. The symptoms occurred and they got her blood pressure down at 92/64. She felt fatigued and weak. She was having A. fib at the time. Patient has been cardioverted back in January and she was cardioverted here on the . It sounds like diltiazem was added on the but I cannot get her to definitively answer if this was a new medicine or a change in dose. She is not having any fevers chills sweats cough urinary symptoms or other complaints. Nothing consistently makes the symptoms come on or go away. However, between them she feels generalized weakness all the time also. [facility] Medical History Atherosclerotic heart disease of [place] coronary artery without angina pectoris Atrial fibrillation Atrial fibrillation CAD (coronary artery disease) Chronic pain COPD (chronic obstructive pulmonary disease) Essential hypertension GERD (gastroesophageal reflux disease) Hx of deep vein thrombophlebitis of lower extremity Hyperlipidemia Insomnia Iron deficiency anemia due to chronic blood loss Lumbar spondylosis Obesity Obstructive sleep apnea Osteoarthritis Osteoporosis Paroxysmal atrial fibrillation Paroxysmal atrial tachycardia Personal history of pulmonary embolism port placement PORT REMOVAL Pure hypercholesterolemia PVD (peripheral vascular disease) Rectal prolapse Thyroid cancer Home Medications albuterol sulfate 2 puff INHALATION Q4H PRN PRN 06/16/13 [History Last Taken 10/01/17 08:00] omeprazole 20 mg PO DAILY 06/16/13 [History Last Taken 07/11/21] calcium citrate-vitamin D3 2 tab PO DAILY 10/24/18 [History Last Taken 07/11/21] zolpidem 6.25 mg PO QHS PRN PRN 03/24/19 [History Last Taken 07/10/21] Prolia 60 mg SUBCUT .[id number] 11/25/20 [History Last Taken 05/22/21] acetaminophen 1,300 mg PO DAILY PRN 11/25/20 [History Last Taken 07/11/21] hydrocodone-acetaminophen 1 tab PO TID 11/25/20 [History Last Taken 07/10/21] anastrozole 1 mg tablet 1 mg PO DAILY 90 Days #90 tab 01/04/21 [Rx Last Taken 07/11/21] Eliquis 5 mg PO BID 02/06/21 [History Last Taken 07/11/21] lisinopril-hydrochlorothiazide 1 tab PO DAILY 02/06/21 [History Last Taken 07/09/21] sotalol 80 mg tablet 80 mg PO BID #60 tab 02/27/21 [Rx Last Taken 07/11/21] pravastatin 20 mg tablet 20 mg PO QHS tab 04/28/21 [History Last Taken 07/10/21] cephalexin 500 mg PO Q6 #28 cap 07/17/21 [Rx Last Taken Unknown] diltiazem HCl 120 mg capsule,extended release 24 hr 120 mg PO BID #60 cap 07/17/21 [Rx Last Taken Unknown] Allergy/AdvReac Type Severity Reaction Status Date / Time niacin Allergy Intermediate I DON'T Verified 07/17/21 11:55 REMEMBER, I CAN'T TAKE IT bee stings Allergy Swelling Uncoded 07/17/21 11:55 Family History Brother Diabetes Heart disease Sister Breast cancer Mother Cancer brain and bone mets Aunt Breast cancer Grandmother Cancer Surgical History History of appendectomy History of cholecystectomy History of incisional hernia repair Hx of mastectomy S/P appendectomy S/P carpal tunnel release S/P cataract extraction S/P hysterectomy S/P lumbar discectomy S/P partial thyroidectomy S/P revision of total knee S/P right breast biopsy S/P total knee replacement Social History household members: none Smoking Status: Never smoker alcohol intake: never substance use type: does not use caffeine: No ROS ROS ED Constitutional Constitutional ED: Denies chills or fever(s) Eyes Eyes: Denies blurry vision ENT ENT ED: Denies rhinorrhea or sore throat Cardiovascular Cardiovascular: Reports chest pain, palpitations and racing heartbeat Respiratory/Chest Respiratory/Chest: Denies dyspnea Gastrointestinal Gastrointestinal: Denies diarrhea, nausea or vomiting Genitourinary Genitourinary ED: Denies dysuria Musculoskeletal Musculoskeletal: Denies myalgias Integumentary Denies rash Neurologic Neurologic: Denies headache(s), paresthesias or weakness Endocrine Endocrinology: Denies polydipsia or polyuria Allergic/Immunologic Allergic/Immunologic ED: Denies urticaria EXAM Physical Exam Const Vital Signs: 07/17/21 11:52 07/17/21 12:21 07/17/21 12:34 Temperature 97.1 F L Temperature Source Temporal Pulse Rate 67 Respiratory Rate 18 Respiratory Effort Normal Respiratory Pattern Normal Blood Pressure 103/62 Blood Pressure Mean 75 Pulse Ox 98 Oxygen Delivery Method Room Air Room Air 07/17/21 13:30 07/17/21 15:39 Temperature Temperature Source Pulse Rate 57 L 61 Respiratory Rate 20 H 19 H Respiratory Effort Respiratory Pattern Blood Pressure 135/57 H 130/65 H Blood Pressure Mean 83 Pulse Ox 95 97 Oxygen Delivery Method Room Air Positive well nourished and well developed General Appearance ED: well developed and NAD; Negative for cyanotic or diaphoretic HEENT Reports moist mucous membranes Negative for trauma Eyes General Eye ED: Negative for pale conjunctiva or scleral icterus Neck No no JVD Chest Wall inspection of chest normal and palpation of chest normal Resp normal respiratory effort and clear to auscultation bilaterally Auscultation: Negative for rales, rhonchi or wheezes Cardio regular rate, regular rhythm and no murmurs GI normal to inspection, nondistended, normoactive bowel sounds and non-tender Palpation: soft Back/Spine no CVA tenderness General Back: CVA tenderness Extremity normal to inspection Neuro oriented x3 Sensorium / Orientation: alert Psych mental status grossly normal Skin no rashes or lesions noted MDM MDM MDM Narrative Medical decision making narrative: Patient has stayed in normal sinus rhythm with a rate about 60 during her stay here. Her blood pressure is fine. CBC is normal. Electrolytes are overall unremarkable. There may be a little bit of dehydration but she did take Lasix recently because of some extremity swelling that has resolved. Creatinine is preserved. TSH is okay. Troponin is negative. However, her urine is cloudy with nitrites leukocyte esterase and 10-25 white cells. She does state that she was urinating about every hour yesterday. She thought this was from Lasix but it was different than normal. Chest x-ray showed some changes. But when I compare this to her prior from a week ago it looks more like an exposure difference. I do not see any clear infiltrate. She is not having pulmonary symptoms. I think this can be followed as an outpatient. I discussed the case with Dr. Blackwood. He recommended that the patient can go home from cardiovascular viewpoint. We will treat her UTI. If she is having further symptoms she may need to return. However, she is not in atrial fibrillation now and has normal blood pressure and relatively normal labs. Lab Data Attestation: I reviewed the patient's lab results. Labs: Laboratory Results - last 24 hr 07/17/21 07/17/21 07/17/21 12:45 12:45 13:30 WBC 8.6 RBC 3.96 L Hgb 12.2 Hct 38.1 MCV 96.2 MCH 30.8 MCHC 32.0 RDW Std Deviation 45.7 H RDW Coeff of Jenna 13.0 Plt Count 209 MPV 8.9 Immature Gran % (Auto) 0.500 Neut % (Auto) 73.9 H Lymph % (Auto) 13.7 L [place] % (Auto) 10.3 H Eos % (Auto) 1.4 Baso % (Auto) 0.2 Absolute Neuts (auto) 6.4 Absolute Lymphs (auto) 1.18 Nucleated RBC % 0 Sodium 141 Potassium 4.0 Chloride 105 Carbon Dioxide 31.0 Anion Gap 5 BUN 29 H Creatinine 0.80 Estim Creat Clear Calc 52.99 Est GFR (MDRD) Af Amer 90 Est GFR (MDRD) Non-Af 74 BUN/Creatinine Ratio 36.5 H Glucose 119 H Calcium 9.2 Magnesium 1.8 Troponin I High Sens 7 TSH 0.99 Urine Color Yellow Urine Clarity Sl. Cloudy Urine pH 7.0 Ur Specific [place] 1.010 Urine Protein 15 H Urine Glucose (UA) Normal Urine Ketones Negative Urine Occult Blood 10 H Urine Nitrite Positive H Urine Bilirubin Negative Urine Urobilinogen Normal Ur Leukocyte Esterase 100 H Urine RBC 0-5 SEEN Urine WBC 10-25 SEEN Ur Squamous Epith Cells 0-5 SEEN Urine Bacteria 2+ Urine Mucus 0 SEEN Radiography Diagnostic Testing: Clinical Impression(s) from Imaging Studies Chest X-Ray 07/17/21 12:37 IMPRESSION: Prominence of the bronchovascular interstitial lung markings is seen most prominent in the lower lung guerra, this could be reactive if 2 gastroesophageal reflux disease, cannot rule out aspiration/aspiration pneumonia. Electronically Signed: Ian Myers MD at 13:02 EST Tel , Service support , EKG Initial EKG: Comments: EKG done for history of atrial fibrillation read by me shows sinus rhythm with bradycardic rate and first-degree AV block. Overall rate of 56. No acute ST elevation or depression. VA interval is long. QRS duration and QTc are normal. Discharge Plan Triage Chief Complaint: Weakness ED Provider: Cuong Clayton Dx/Rx/DC Orders Clinical Impression: Intermittent atrial fibrillation, Urinary tract infection Instructions: Urinary Tract Infections in Women, ED AFIB Prescriptions: New cephalexin [cephalexin] 500 MG capsule 500 mg PO Q6 Qty: 28 RF: 0 No Action diltiazem HCl [Cardizem CD] 120 mg capsule,extended release 24hr 120 mg PO BID Qty: 60 RF: 0 omeprazole 20 MG capsule 20 mg PO DAILY RF: 0 albuterol sulfate 1 PUFF inhaler 2 puff INHALATION Q4H PRN PRN (Reason: Asthma) RF: 0 zolpidem 12.5 MG tablet,ext release multiphase 6.25 mg PO QHS PRN PRN (Reason: Insomnia) RF: 0 calcium citrate-vitamin D3 1 EACH tablet 2 tab PO DAILY RF: 0 hydrocodone-acetaminophen 5-325 mg tablet 1 tab PO TID RF: 0 acetaminophen 650 mg Tablet Extended Release 1,300 mg PO DAILY PRN (Reason: Pain) RF: 0 Prolia 60 mg/mL Syringe 60 mg SUBCUT .[id number] RF: 0 Eliquis 5 mg tablet 5 mg PO BID RF: 0 lisinopril-hydrochlorothiazide 10-12.5 mg tablet 1 tab PO DAILY RF: 0 pravastatin 20 mg tablet 20 mg PO QHS RF: 0 anastrozole 1 mg tablet 1 mg PO DAILY 90 Days Qty: 90 RF: 3 sotalol 80 mg tablet 80 mg PO BID Qty: 60 RF: 11 Primary Care Provider: Jessica Aguero Referrals: Jessica Aguero, [Primary Care Provider] - 3-5 Days if not improving Disposition Disposition: Home, Self Care Discharge Date/Time: 07/17/21 16:23
[2021-07-17 13:00] LABS: Absolute Lymphocyte Count 1.18 X10^3/uL (0.83-4.51); Absolute Neutrophil Count 6.4 X10^3/uL (2.0-7.7); Basophil# 0.02 X10^3/uL; Basophil% 0.2 % (0-1); Eosinophil# 0.12 X10^3/uL; Eosinophils% 1.4 % (0-5); Hematocrit 38.1 % (37-47); Hemoglobin 12.2 g/dL (12.0-15.0); Lymphocyte # 1.18 X10^3/ul (0.83-4.51); Lymphocyte % 13.7 % (19-41); Mean Corpuscular Hgb 30.8 pg (27.0-32.0); Mean Corpuscular Volume 96.2 fL (81-99); Mean Platelet Vol. 8.9 fl (6.2-12.0); Monocyte# 0.89 X10^3/uL; Monocyte% 10.3 % (0-10); NRBC Flagged by Analyzer 0 % (0-5); Neutrophil # 6.36 X10^3/uL (2.7-7.7); Neutrophil % 73.9 % (47-70); Platelet Count 209 K/mm3 (150-450); RBC Distribution Width SD 45.7 fl (35.1-43.9); Red Blood Count 3.96 M/mm3 (4.2-5.4); White Blood Count 8.6 K/mm3 (4.4-11.0)
[2021-07-17 13:27] LABS: Anion Gap 5 (5-15); BUN 29 mg/dL (7-18); BUN/Creat Ratio 36.5 RATIO (10-20); Calcium,Total 9.2 mg/dL (8.5-10.1); Chloride 105 mmol/L (98-107); EST Glomerular Filtration Rate 74 mL/min (>60); Est Glom Filt Rate - Afr Amer 90 mL/min (>60); Estimated Creatinine Clearance 52.99 ml/min; Glucose 119 mg/dL (74-106); Magnesium 1.8 mg/dL (1.6-2.6); Sodium Level 141 mmol/L (136-145); Thyroid Stim Hormone (TSH) 0.99 uIU/mL (0.358-3.74); Troponin-I HS 7 pg/mL (3.0-54.0)
[2021-07-17 13:30] VITALS: BP 135/57; PULSE 57; RESP 20; O2SAT 95
[2021-07-17 13:36] LABS: Mucous, Urine 0 SEEN /hpf (<or=2+)
[2021-07-17 13:42] LABS: Color, Urine Yellow (Yellow); Glucose, Dipstick Normal (Normal); Ketone-Dipstick Negative (Negative); Leukocyte Esterase-Dipstick 100 /ul (Negative); Nitrite-Dipstick Positive (Negative); Occult Blood-Urine 10 /ul (Negative); Protein-Dipstick 15 mg/dl (Negative); Urine Bilirubin Dipstick Negative (Negative); Urine Clarity Sl. Cloudy (Clear); Urine Urobilinogen Normal (Normal)
[2021-07-17 13:49] LABS: Bacteria 2+ /hpf (None Seen); Red Blood Cells-Urine 0-5 SEEN /hpf (0-5); Squamous Epithelial Cells - UA 0-5 SEEN /hpf (5-10); White Blood Cells 10-25 SEEN /hpf (0-5)
[2021-07-17] MEDS: Ceftriaxone 1 GM/50 ML BAG IV (15:27)
[2021-07-17 15:39] VITALS: BP 130/65; PULSE 61; RESP 19; O2SAT 97
== END 2021-07-17 16:23 | disposition home or self-care (01) ==
PROVIDERS: Emergency Provider Emergency Medicine; PCP Internal Medicine
DX: I48.91 Unspecified atrial fibrillation (principal); N39.0 Urinary tract infection, site not specified; I44.0 Atrioventricular block, first degree; E66.9 Obesity, unspecified; E78.00 Pure hypercholesterolemia, unspecified; E78.5 Hyperlipidemia, unspecified; G47.00 Insomnia, unspecified; G47.33 Obstructive sleep apnea (adult) (pediatric); I10 Essential (primary) hypertension; I25.10 Atherosclerotic heart disease of native coronary artery without angina pectoris; J44.9 Chronic obstructive pulmonary disease, unspecified; K21.9 Gastro-esophageal reflux disease without esophagitis; G89.29 Other chronic pain; Z79.01 Long term (current) use of anticoagulants; Z86.711 Personal history of pulmonary embolism
CPT/HCPCS: 71045; 80048; 81001; 83735; 84443; 84484; 85025; 87086; 87088; 87186; 87426; 93005; 96365; 99285; A4216

== ENCOUNTER 2021-07-26 15:38 | Inpatient (IN) | payer MEDICARE, MEDICAID, SELFPAY ==
[2021-07-26] VITALS (10 sets, daily range): BP systolic 155–166; BP diastolic 70–80; PULSE 65–79; RESP 15–17; TEMP 36.6–36.8; O2SAT 92–99; BMI 30.9
--- NOTE | 2021-07-26 16:08 | RAD_ITS ---
STUDY: X-RAY CHEST REASON FOR EXAM: Female, 75 years old. COUGH -- WAITING TECHNIQUE: Single frontal view of the chest. COMPARISON: 07/17/2021. FINDINGS: Bilateral pleural effusions, moderate and patchy bibasilar opacities. Normal size heart. Normal mediastinum and kwaku. Normal visualized pulmonary arteries. There is atherosclerotic calcification of the aortic arch with tortuosity. Normal visualized thoracic spine. Normal visualized ribs, clavicles, and shoulders. There is no demonstrated abnormality of the visualized soft tissue structures of the upper abdomen. Lumbar spinal hardware is noted. RAD/Chest 1 View (Portable) IMPRESSION: Moderate bilateral pleural effusions and associated basilar opacities are new compared to prior. Underlying pneumonia should be excluded clinically. Electronically Signed: Hollis Lam MD at 16:31 EST Tel , Service support ,
--- NOTE | 2021-07-26 19:51 | EKG12_ITS ---
Test Reason : HYPOXIA Blood Pressure : / mmHG Vent. Rate : 063 BPM Atrial Rate : 241 BPM P-R Int : 000 ms QRS Dur : 080 ms QT Int : 456 ms P-R-T Axes : 000 017 010 degrees QTc Int : 466 ms Somatic/motion artifact Atrial fibrillation Nonspecific ST abnormality Abnormal ECG Confirmed by AYANA GONZALEZ, JORGE ([id number]), school photograph editor GUERDA GUTIERREZ ([id number]) on 07/27/2021 10:57:09 AM Referred By: LUCAS Confirmed By:JORGE PIÑA MD
--- NOTE | 2021-07-26 20:02 | EDS_ITS ---
HPI History of Present Illness Chief Complaint: Cough Informant: patient Narrative Narrative: Exertional dyspnea without angina or cough or fever/chills for the last couple days, pulse oximetry was in the 80s according to home health nurse, according the patient, today. Therefore she was referred to the ER, patient states she does not want to be here and does not want to be hospitalized she feels he has no reason to be. She has edema in her legs that is chronic according to her. She states she has had some intermittent left-sided sharp nonpleuritic chest pains off and on for the last day or 2, they are near her axilla and last 2 or 3 minutes each time with no other associated symptoms at the same time. She denies any palpitations. She has a history of A. fib and has not felt like she is in A. fib. She is anticoagulated. Pt was 92% on RA for EMS, prior to them placing her on oxygen. [facility] Medical History Atherosclerotic heart disease of [place] coronary artery without angina pectoris Atrial fibrillation Atrial fibrillation CAD (coronary artery disease) Chronic pain COPD (chronic obstructive pulmonary disease) Essential hypertension GERD (gastroesophageal reflux disease) Hx of deep vein thrombophlebitis of lower extremity Hyperlipidemia Insomnia Iron deficiency anemia due to chronic blood loss Lumbar spondylosis Obesity Obstructive sleep apnea Osteoarthritis Osteoporosis Paroxysmal atrial fibrillation Paroxysmal atrial tachycardia Personal history of pulmonary embolism port placement PORT REMOVAL Pure hypercholesterolemia PVD (peripheral vascular disease) Rectal prolapse Thyroid cancer Home Medications albuterol sulfate 2 puff INHALATION Q4H PRN PRN 06/16/13 [History Last Taken 10/01/17 08:00] omeprazole 20 mg PO DAILY 06/16/13 [History Last Taken 07/11/21] calcium citrate-vitamin D3 2 tab PO DAILY 10/24/18 [History Last Taken 07/11/21] zolpidem 6.25 mg PO QHS PRN PRN 03/24/19 [History Last Taken 07/10/21] Prolia 60 mg SUBCUT .[id number] 11/25/20 [History Last Taken 05/22/21] acetaminophen 1,300 mg PO DAILY PRN 11/25/20 [History Last Taken 07/11/21] hydrocodone-acetaminophen 1 tab PO TID 11/25/20 [History Last Taken 07/10/21] anastrozole 1 mg tablet 1 mg PO DAILY 90 Days #90 tab 01/04/21 [Rx Last Taken 07/11/21] Eliquis 5 mg PO BID 02/06/21 [History Last Taken 07/11/21] lisinopril-hydrochlorothiazide 1 tab PO DAILY 02/06/21 [History Last Taken 07/09/21] sotalol 80 mg tablet 80 mg PO BID #60 tab 02/27/21 [Rx Last Taken 07/11/21] pravastatin 20 mg tablet 20 mg PO QHS tab 04/28/21 [History Last Taken 07/10/21] cephalexin 500 mg PO Q6 #28 cap 07/17/21 [Rx Last Taken Unknown] diltiazem HCl 120 mg capsule,extended release 24 hr 120 mg PO BID #60 cap 07/17/21 [Rx Last Taken Unknown] Allergy/AdvReac Type Severity Reaction Status Date / Time niacin Allergy Intermediate I DON'T Verified 07/26/21 15:44 REMEMBER, I CAN'T TAKE IT bee stings Allergy Swelling Uncoded 07/26/21 15:44 Family History Brother Diabetes Heart disease Sister Breast cancer Mother Cancer brain and bone mets Aunt Breast cancer Grandmother Cancer Surgical History History of appendectomy History of cholecystectomy History of incisional hernia repair Hx of mastectomy S/P appendectomy S/P carpal tunnel release S/P cataract extraction S/P hysterectomy S/P lumbar discectomy S/P partial thyroidectomy S/P revision of total knee S/P right breast biopsy S/P total knee replacement Social History household members: none Smoking Status: Never smoker alcohol intake: never substance use type: does not use caffeine: No ROS ROS ED Constitutional Constitutional ED: Denies chills or fever(s) Eyes Eyes: Denies change in vision or diplopia ENT ENT ED: Denies rhinorrhea or sore throat Cardiovascular Cardiovascular: Reports as per HPI, chest pain and pedal edema; Denies palpitations Respiratory/Chest Respiratory/Chest: Reports dyspnea on exertion; Denies cough Gastrointestinal Gastrointestinal: Denies abdominal pain, diarrhea, nausea or vomiting Genitourinary Genitourinary ED: Denies dysuria or hematuria Musculoskeletal Musculoskeletal: Denies back pain or neck pain Integumentary Denies abscess or rash Neurologic Neurologic: Denies headache(s), paresthesias or weakness Psychiatric Psychiatric: Denies anxiety or suicidal thoughts EXAM Physical Exam Const Vital Signs: 07/26/21 15:41 07/26/21 19:31 07/26/21 19:32 Temperature 97.9 F Temperature Source Temporal Pulse Rate 65 69 Respiratory Rate 16 15 Respiratory Effort Normal Non-Labored Respiratory Depth Normal Respiratory Pattern Normal Blood Pressure 162/77 H Blood Pressure Mean 105 Pulse Ox 99 94 Oxygen Delivery Method Room Air Room Air Room Air Oxygen Flow Rate (L/min) 07/26/21 19:43 07/26/21 19:59 07/26/21 21:10 Temperature Temperature Source Pulse Rate 66 Respiratory Rate 16 Respiratory Effort Respiratory Depth Respiratory Pattern Blood Pressure Blood Pressure Mean Pulse Ox 92 99 99 Oxygen Delivery Method Nasal Cannula Nasal Cannula Nasal Cannula Oxygen Flow Rate (L/min) 2 2 07/26/21 22:44 Temperature 98.3 F Temperature Source Temporal Pulse Rate 79 Respiratory Rate 17 Respiratory Effort Respiratory Depth Respiratory Pattern Blood Pressure 166/70 H Blood Pressure Mean 102 Pulse Ox 98 Oxygen Delivery Method Nasal Cannula Oxygen Flow Rate (L/min) 2 Positive well nourished and well developed General Appearance ED: well developed and NAD HEENT Reports moist mucous membranes normocephalic and atraumatic Eyes PERRL and EOMs intact bilaterally Neck full ROM, supple, no meningeal signs and no JVD Resp normal respiratory effort and clear to auscultation bilaterally Cardio regular rate, regular rhythm and no murmurs GI non-tender and non-distended Auscultation: normoactive bowel sounds Palpation: soft Back/Spine no CVA tenderness General Back: other FROM Extremity normal to inspection General Extremety ED: Yes edema; Negative for pulses abnormal or tenderness General Extremity: edema bilateral lower extremity Details: mild; Negative for pulses abnormal Neuro oriented x3, CN's II-XII intact bilaterally and no sensory deficits noted Sensorium / Orientation: awake and alert Motor Exam: strength 5/5 throughout Skin no rashes or lesions noted and no wounds MDM MDM MDM Narrative Medical decision making narrative: Work-up shows bilateral pleural effusions are large enough to cause the patient's symptoms. Here on room air, she is 92-94%, however she walked about 6 feet and became very dyspneic desatting down to 85% for reasonable period of time, so we placed her on 2 L nasal cannula. The rest of her work-up is unremarkable, including a negative rapid Covid. Her lungs are clear of her being somewhat diminished at the bases. For these reasons, upon reviewing the radiology interpretation, I do not think clinically she has pneumonia and is probably coughing in relation to the effusions. She has a history of breast cancer that was treated with right mastectomy and chemotherapy, she finished all of that in 2018. Plan will be for admission for further treatment including possible thoracentesis. Lab Data Attestation: I reviewed the patient's lab results. Labs: Laboratory Results - last 24 hr 07/26/21 07/26/21 07/26/21 19:57 19:57 19:57 WBC 8.3 RBC 4.06 L Hgb 12.3 Hct 38.6 MCV 95.1 MCH 30.3 MCHC 31.9 L RDW Std Deviation 44.2 H RDW Coeff of Jenna 12.7 Plt Count 230 MPV 8.8 Immature Gran % (Auto) 0.500 Neut % (Auto) 68.4 Lymph % (Auto) 13.6 L [place] % (Auto) 9.1 Eos % (Auto) 8.0 H Baso % (Auto) 0.4 Absolute Neuts (auto) 5.7 Absolute Lymphs (auto) 1.12 Nucleated RBC % 0 Sodium 140 Potassium 4.0 Chloride 102 Carbon Dioxide 32.0 Anion Gap 6 BUN 17 Creatinine 0.65 Estim Creat Clear Calc 42.39 Est GFR (MDRD) Af Amer 114 Est GFR (MDRD) Non-Af 95 BUN/Creatinine Ratio 26.3 H Glucose 110 H Calcium 9.1 Troponin I High Sens 7 B-Natriuretic Peptide 178.3 H Radiography Diagnostic Testing: Clinical Impression(s) from Imaging Studies Chest X-Ray 07/26/21 16:08 IMPRESSION: Moderate bilateral pleural effusions and associated basilar opacities are new compared to prior. Underlying pneumonia should be excluded clinically. Electronically Signed: Hollis Lam MD at 16:31 EST Tel , Service support , EKG Initial EKG: Attestation: I personally reviewed and interpreted this EKG as follows: Interpretation: No Acute Injury Pattern and Atrial Fibrillation (at rate of 63) Prior EKG tracings: available for review Prior: Unchanged Discharge Plan Dx/Rx/DC Orders Clinical Impression: Bilateral pleural effusion, CUELLO (dyspnea on exertion), Hypoxemia Disposition Disposition: Acute Care Hospital [facility]
[2021-07-26 20:03] LABS: Absolute Lymphocyte Count 1.12 X10^3/uL (0.83-4.51); Absolute Neutrophil Count 5.7 X10^3/uL (2.0-7.7); Basophil# 0.03 X10^3/uL; Basophil% 0.4 % (0-1); Eosinophil# 0.66 X10^3/uL; Hematocrit 38.6 % (37-47); Hemoglobin 12.3 g/dL (12.0-15.0); Lymphocyte # 1.12 X10^3/ul (0.83-4.51); Lymphocyte % 13.6 % (19-41); Mean Corp Hgb Conc 31.9 g/dL (32-36); Mean Corpuscular Hgb 30.3 pg (27.0-32.0); Mean Corpuscular Volume 95.1 fL (81-99); Mean Platelet Vol. 8.8 fl (6.2-12.0); Monocyte# 0.75 X10^3/uL; Monocyte% 9.1 % (0-10); NRBC Flagged by Analyzer 0 % (0-5); Neutrophil # 5.66 X10^3/uL (2.7-7.7); Neutrophil % 68.4 % (47-70); Platelet Count 230 K/mm3 (150-450); RBC Distribution Width CV 12.7 % (11.6-14.6); RBC Distribution Width SD 44.2 fl (35.1-43.9); Red Blood Count 4.06 M/mm3 (4.2-5.4); White Blood Count 8.3 K/mm3 (4.4-11.0)
[2021-07-26 20:22] LABS: Anion Gap 6 (5-15); BUN 17 mg/dL (7-18); BUN/Creat Ratio 26.3 RATIO (10-20); Calcium,Total 9.1 mg/dL (8.5-10.1); Chloride 102 mmol/L (98-107); Creatinine, Serum 0.65 mg/dL (0.55-1.02); EST Glomerular Filtration Rate 95 mL/min (>60); Est Glom Filt Rate - Afr Amer 114 mL/min (>60); Estimated Creatinine Clearance 42.39 ml/min; Glucose 110 mg/dL (74-106); Sodium Level 140 mmol/L (136-145); Troponin-I HS 7 pg/mL (3.0-54.0)
[2021-07-26 20:39] LABS: BNP,B-Type NATRIURETIC PEPTIDE 178.3 pg/mL (0-100)
--- NOTE | 2021-07-26 23:39 | PCM.HP.STD ---
HPI - General General Date of Admission: 07/26/21 HPI Narrative ALLISON MAHER, is a 75 F with a significant history of atrial fibrillation; obstructive sleep apnea; right breast cancer status post mastectomy who presents to the emergency department with a progressively worsening shortness of breath with exertion. Her symptoms started about 3 days before presentation. Because her oxygen saturation was in the 80s her home health nurse advised her to come to emergency department but she was reluctant. Because her symptoms was persisting she discussed with family and she was encouraged to come to the emergency department. She called the paramedics and just wanted to find out whether she was in A. fib. But paramedics also confirmed that she was severely hypoxic so she should come to the emergency department. Further, she reports left chest pain. While she reported a cough in the emergency department she denied cough at the time of hospitalist examination. She reports 'recent' sore throat that has resolved. At the emergency department on this presentation attempt was made to discharge patient home however she got very dyspneic with ambulation and oxygen saturation was in the 80s. She has been vaccinated with COVID-19 Pfizer vaccination but without a booster. She has a bilateral lower extremity swelling which has worsened in the week of presentation. She reports weight gain of about 20 pounds since April 2020 when her father . Of note patient was a hospital on July 17, 2021 and was prescribed Keflex for UTI. She is still on the Keflex. [facility] Medical History Atherosclerotic heart disease of [place] coronary artery without angina pectoris Atrial fibrillation Atrial fibrillation CAD (coronary artery disease) Chronic pain COPD (chronic obstructive pulmonary disease) Essential hypertension GERD (gastroesophageal reflux disease) Hx of deep vein thrombophlebitis of lower extremity Hyperlipidemia Insomnia Iron deficiency anemia due to chronic blood loss Lumbar spondylosis Obesity Obstructive sleep apnea Osteoarthritis Osteoporosis Paroxysmal atrial fibrillation Paroxysmal atrial tachycardia Personal history of pulmonary embolism port placement PORT REMOVAL Pure hypercholesterolemia PVD (peripheral vascular disease) Rectal prolapse Thyroid cancer Home Medications albuterol sulfate 2 puff INHALATION Q4H PRN PRN 06/16/13 [History Last Taken 10/01/17 08:00] omeprazole 20 mg PO DAILY 06/16/13 [History Last Taken 07/11/21] calcium citrate-vitamin D3 2 tab PO DAILY 10/24/18 [History Last Taken 07/11/21] zolpidem 6.25 mg PO QHS PRN PRN 03/24/19 [History Last Taken 07/10/21] Prolia 60 mg SUBCUT .[id number] 11/25/20 [History Last Taken 05/22/21] acetaminophen 1,300 mg PO DAILY PRN 11/25/20 [History Last Taken 07/11/21] hydrocodone-acetaminophen 1 tab PO TID 11/25/20 [History Last Taken 07/10/21] anastrozole 1 mg tablet 1 mg PO DAILY 90 Days #90 tab 01/04/21 [Rx Last Taken 07/11/21] Eliquis 5 mg PO BID 02/06/21 [History Last Taken 07/11/21] lisinopril-hydrochlorothiazide 1 tab PO DAILY 02/06/21 [History Last Taken 07/09/21] sotalol 80 mg tablet 80 mg PO BID #60 tab 02/27/21 [Rx Last Taken 07/11/21] pravastatin 20 mg tablet 20 mg PO QHS tab 04/28/21 [History Last Taken 07/10/21] L.acidoph,saliva-B.bif-S.therm [Acidophilus Probiotic Blend] 1 cap PO DAILY 07/27/21 [History Last Taken Unknown] cephalexin 500 mg PO Q6 07/27/21 [History Last Taken Unknown] diltiazem HCl [Cardizem CD] 120 mg PO BID 07/27/21 [History Last Taken Unknown] Allergy/AdvReac Type Severity Reaction Status Date / Time niacin Allergy Intermediate I DON'T Verified 07/26/21 15:44 REMEMBER, I CAN'T TAKE IT bee stings Allergy Swelling Uncoded 07/26/21 15:44 Family History Brother Diabetes Heart disease Sister Breast cancer Mother Cancer brain and bone mets Aunt Breast cancer Grandmother Cancer Surgical History History of appendectomy History of cholecystectomy History of incisional hernia repair Hx of mastectomy S/P appendectomy S/P carpal tunnel release S/P cataract extraction S/P hysterectomy S/P lumbar discectomy S/P partial thyroidectomy S/P revision of total knee S/P right breast biopsy S/P total knee replacement Social History household members: none Smoking Status: Never smoker alcohol intake: never substance use type: does not use caffeine: No ROS ROS Narrative Constitutional: Reports fatigue and anorexia. Reports decrease in weight. Denies fever and chills. Eyes: Denies blurry vision, change in eye color, change in vision, discharge from eye(s), double vision, erythema, eye pain, loss of vision or other HEENT: Reports a soreness of mouth and yeast deposition in the mouth. Denies abnormal hearing, dysphagia, ear pain, epistaxis, headache(s), hearing loss, nasal congestion, nasal discharge, post nasal drip, sinus pressure, or other Cardiovascular: Reports left-sided chest pain. Denies palpitations. Reports dyspnea on exertion. Respiratory/Chest: Denies cough, excessive phlegm production. Gastrointestinal: Denies abdominal pain, coffee ground emesis, constipation, diarrhea, dyspepsia, hematemesis, hematochezia, loose stools, melena, nausea, vomiting or other Genitourinary: Denies burning urination, difficulty urinating, dysuria, hematuria, nocturia, urinary frequency, urinary hesitancy, urinary incontinence, urinary urgency or other Musculoskeletal: Denies arthralgias, back pain, joint pain, joint stiffness, joint swelling, myalgias, neck pain or other Neurologic: Denies abnormal speech, confusion, disequilibrium, dizziness, focal weakness, headache(s), numbness, paresthesias, seizure-like activity, seizures, syncope, tingling, tremor(s) or other Psychiatric: Denies anxiety, depression, homicidal ideation, suicidal ideation or other Endocrinology: Denies change in body appearance, cold intolerance, excessive sweating, heat intolerance, polydipsia, polyuria or other Hematologic/Lymphatic: Denies anemia, easy bleeding, easy bruising, lymphadenopathy or other Integumentary: Denies rashes Allergic/Immunologic: Denies rhinitis, hives, eczema, asthma or other Vital Signs Vital Signs Vital Signs: 07/26/21 15:41 07/26/21 19:31 07/26/21 19:32 Temperature 97.9 F Temperature Source Temporal Pulse Rate 65 69 Respiratory Rate 16 15 Respiratory Effort Normal Non-Labored Respiratory Depth Normal Respiratory Pattern Normal Blood Pressure 162/77 H Blood Pressure Mean 105 Pulse Ox 99 94 Oxygen Delivery Method Room Air Room Air Room Air Oxygen Flow Rate (L/min) 07/26/21 19:43 07/26/21 19:59 07/26/21 21:10 Temperature Temperature Source Pulse Rate 66 Respiratory Rate 16 Respiratory Effort Respiratory Depth Respiratory Pattern Blood Pressure Blood Pressure Mean Pulse Ox 92 99 99 Oxygen Delivery Method Nasal Cannula Nasal Cannula Nasal Cannula Oxygen Flow Rate (L/min) 2 2 07/26/21 22:44 Temperature 98.3 F Temperature Source Temporal Pulse Rate 79 Respiratory Rate 17 Respiratory Effort Respiratory Depth Respiratory Pattern Blood Pressure 166/70 H Blood Pressure Mean 102 Pulse Ox 98 Oxygen Delivery Method Nasal Cannula Oxygen Flow Rate (L/min) 2 Weight Weight: 84.368 kg Body Mass Index (BMI) 30.9 Physical Exam Narrative Physical exam: General: Well-nourished, well-developed. Head: Normocephalic, atraumatic, no tenderness Eyes: PERRLA, EOMI ENT, no trauma, moist mucous membranes, mild whitening of tongue. No rhinorrhea Neck: Nontender, full range of motion, no spinal tenderness, deformities, step-off CVS: Regular rate and rhythm. S1-S2 present. No murmur, gallop or rub. Respiratory : Mild audible wheezing with deep breathing. No rales. Abdomen: Soft, nontender, nondistended, normal bowel sounds, no masses : Deferred Back: Nontender, no CVA tenderness, no midline spinal tenderness. Extremities: Nontender full range of motion, no trauma. Slight pitting edema. Skin: Bilateral redness of inguinal folds. Normal color, no trauma, abrasions Neuro: Alert, oriented, cranial nerves II through XII grossly intact. Psychiatry: Normal mood. Normal affect. Not depressed. Not anxious. Results Lab / Micro Data Result Diagrams: 07/26/21 19:57 07/26/21 19:57 Labs: Laboratory Results - last 24 hr 07/26/21 19:57: WBC 8.3, RBC 4.06 L, Hgb 12.3, Hct 38.6, MCV 95.1, MCH 30.3, MCHC 31.9 L, RDW Std Deviation 44.2 H, RDW Coeff of Jenna 12.7, Plt Count 230, MPV 8.8, Immature Gran % (Auto) 0.500, Neut % (Auto) 68.4, Lymph % (Auto) 13.6 L, Mineral % (Auto) 9.1, Eos % (Auto) 8.0 H, Baso % (Auto) 0.4, Absolute Neuts (auto) 5.7, Absolute Lymphs (auto) 1.12, Nucleated RBC % 0 07/26/21 19:57: Sodium 140, Potassium 4.0, Chloride 102, Carbon Dioxide 32.0, Anion Gap 6, BUN 17, Creatinine 0.65, Estim Creat Clear Calc 42.39, Est GFR (MDRD) Af Amer 114, Est GFR (MDRD) Non-Af 95, BUN/Creatinine Ratio 26.3 H, Glucose 110 H, Calcium 9.1, Troponin I High Sens 7 07/26/21 19:57: B-Natriuretic Peptide 178.3 H Micro: Microbiology 07/26/21 16:00 Nasal Secretion SARS-CoV-2 Antigen (Rapid) - Final Radiology Impression Chest X-Ray 07/26/21 16:08 IMPRESSION: Moderate bilateral pleural effusions and associated basilar opacities are new compared to prior. Underlying pneumonia should be excluded clinically. Electronically Signed: Hollis Lam MD at 16:31 EST Tel , Service support , Assessment & Plan Assessment/Plan (1) Bilateral pleural effusion: (2) Hypoxemia: (3) Morbid obesity: (4) Obesity (BMI 30.0-34.9): PLAN: Bilateral pleural effusion with hypoxia Chest x-ray independently interpreted showed bilateral pleural effusion and I agree with radiologist interpretation Ultrasound thoracentesis ordered. Order was placed for right first. Will get PT/INR. Will hold home Eliquis. BNP is 178.3. Last echocardiogram on file was on 08/26/2018. Echo at that time showed estimated ejection fraction of 65% with stage II diastolic dysfunction. Stress test 03/25/2019 was unremarkable. Patient follows up Dr. Rick, cardiology and reportedly she has appointment on 07/27/2021 Dr. Rick. Review of CBC showed normal white count. Hemoglobin of 12.3. Platelet is normal. Review of BMP showed normal creatinine normal sodium normal potassium. Glucose was mildly elevated at 110. Paroxysmal atrial fibrillation In sinus rhythm at this time. With plan to do thoracentesis would hold Eliquis for now. Intertrigo: Nystatin powder ordered. Obesity: BMI on presentation: 31.8 kg/m?. Complicates care. Lifestyle modification recommended. Hypertension Blood pressure is not within goal Cardizem, lisinopril with hydrochlorothiazide continued. As needed hydralazine ordered. Trend blood pressure and adjust blood pressure medications. DVT prophylaxis: SCD ordered. Charges/Coding Visit Charges Inpatient E&M: 40095 Init Hosp L3
[2021-07-27] VITALS (11 sets, daily range): BP systolic 122–152; BP diastolic 52–62; PULSE 61–72; RESP 16–18; TEMP 36.4–36.8; O2SAT 95–100; BMI 31.8
--- NOTE | 2021-07-27 01:40 | ECHOCS_ITS ---
Reason For Study: PLEURAL EFFUSION Procedure This was a 2D Doppler, Color Flow transthoracic echocardiogram. The study was technically difficult. Exam performed portable in patient room. Left Ventricle Normal left ventricle. The estimated ejection fraction is 55-60 %. Right Ventricle Normal right ventricle. Normal systolic function. Atria Normal left atrium. Normal right atrium. Mitral Valve There is mild mitral annular calcification. Trivial mitral valve insufficiency. Tricuspid Valve Normal tricuspid valve. No tricuspid valve insufficiency. Aortic Valve Mild diffuse aortic valve calcification. Mild (1+) aortic valve insufficiency. Medication Diluted definity 2ml given slow IV push to enhance endocardial definition. MMode/2D Measurements & Calculations LVIDd: 4.3 cm IVSd: 1.0 cm Ao root diam: 3.4 cm LVIDs: 2.9 cm LVPWd: 1.0 cm RVDd: 3.2 cm FS: 33.0 % LAV(MOD-bp): 61.7 ml SV(MOD-sp4): 49.7 ml LVAd ap4: 25.3 cm2 LAV(MOD-bp) Indexed: 32.1 ml/m2 LVLd ap4: 6.8 cm LAV(MOD-sp2): 57.5 ml EDV(MOD-sp4): 77.2 ml LAV(MOD-sp4): 62.1 ml EDV(sp4-el): 79.9 ml LVAs ap4: 14.0 cm2 LVLs ap4: 5.7 cm ESV(MOD-sp4): 27.5 ml ESV(sp4-el): 28.9 ml EF(MOD-sp4): 64.4 % EF(sp4-el): 63.8 % SV(sp4-el): 51.0 ml LA dimension(2D): 3.5 cm LA A4 area: 21.8 cm2 RA A4 area: 18.9 cm2 Time Measurements MV dec time: 0.24 sec Doppler Measurements & Calculations MV E max matthew: 94.7 cm/sec Lat Peak E' Matthew: 7.5 cm/sec Med Peak E' Matthew: 5.4 cm/sec MV A max matthew: 80.3 cm/sec E/E' lat: 12.6 E/E' med: 17.4 MV E/A: 1.2 Ao V2 max: 150.6 cm/sec AI max matthew: 308.5 cm/sec LV V1 max: 128.8 cm/sec Ao max P.1 mmHg AI max P.1 mmHg LV V1 max P.6 mmHg AI dec slope: 178.5 cm/sec2 AI P1/2t: 506.1 msec PA V2 max: 87.7 cm/sec TR max matthew: 278.4 cm/sec TR max P.0 mmHg ECHO/Echo Complete W/ Contrast Interpretation Summary The estimated ejection fraction is 55-60 %. Mild AI No significant changes from prior Echo Ordering Physician: Gerhard Hernadez Referring Physician: SHYANNE PICHARDO Performed By: Windy Basurto RDCS
--- NOTE | 2021-07-27 01:40 | US_ITS ---
STUDY: SUPERFICIAL ULTRASOUND - CHEST REASON FOR EXAM: Female, 75 years old. Pleural Effusion -- TECHNIQUE: A superficial ultrasound was performed with real-time and static mccray-scale imaging. COMPARISON: None. FINDINGS: Not enough fluid is seen for a safe thoracentesis. US/Chest IMPRESSION: Not enough pleural fluid is seen for a safe thoracentesis. Electronically Signed: Yared Chan MD at 15:31 EST , Service support ,
[2021-07-27] MEDS: Acetaminophen 500 MG Tablet 1000 MG PO (02:42)
[2021-07-27 02:44] LABS: Troponin-I HS 7 pg/mL (3.0-54.0)
[2021-07-27 04:10] LABS: Troponin-I HS 7 pg/mL (3.0-54.0)
[2021-07-27] MEDS: Nystatin Ointment 1 APPLIC TOPICAL ×3 (04:17→21:42)
[2021-07-27 07:32] LABS: Absolute Lymphocyte Count 0.91 X10^3/uL (0.83-4.51); Absolute Neutrophil Count 5.3 X10^3/uL (2.0-7.7); Basophil# 0.02 X10^3/uL; Basophil% 0.3 % (0-1); Eosinophil# 0.78 X10^3/uL; Eosinophils% 9.9 % (0-5); Hematocrit 33.5 % (37-47); Hemoglobin 10.7 g/dL (12.0-15.0); Lymphocyte # 0.91 X10^3/ul (0.83-4.51); Lymphocyte % 11.6 % (19-41); Mean Corp Hgb Conc 31.9 g/dL (32-36); Mean Corpuscular Hgb 30.6 pg (27.0-32.0); Mean Corpuscular Volume 95.7 fL (81-99); Mean Platelet Vol. 8.8 fl (6.2-12.0); Monocyte# 0.78 X10^3/uL; Monocyte% 9.9 % (0-10); NRBC Flagged by Analyzer 0 % (0-5); Neutrophil # 5.33 X10^3/uL (2.7-7.7); Neutrophil % 67.7 % (47-70); Platelet Count 214 K/mm3 (150-450); RBC Distribution Width CV 12.9 % (11.6-14.6); RBC Distribution Width SD 44.5 fl (35.1-43.9); White Blood Count 7.9 K/mm3 (4.4-11.0)
[2021-07-27 07:51] LABS: International Normalized Ratio 1.3; Prothrombin Time (Protime)PT. 15.2 SECONDS (11.7-14.9)
[2021-07-27 08:12] LABS: ALB/GLOB Ratio 0.6 RATIO (0.9-2.4); Anion Gap 6 (5-15); BUN 17 mg/dL (7-18); Chloride 103 mmol/L (98-107); Creatinine, Serum 0.52 mg/dL (0.55-1.02); EST Glomerular Filtration Rate 123 mL/min (>60); Est Glom Filt Rate - Afr Amer 149 mL/min (>60); Estimated Creatinine Clearance 42.39 ml/min; Globulin 3.6 g/dL (2.2-4.2); Glucose 123 mg/dL (74-106); LDH 140 U/L (84-246); Partial Thromboplast Time 38.2 Seconds (24.1-36.2); Potassium 3.6 mmol/L (3.5-5.1); Protein, Total 5.8 g/dL (6.4-8.2); Sodium Level 139 mmol/L (136-145); Troponin-I HS 6 pg/mL (3.0-54.0)
[2021-07-27] MEDS: dilTIAZem CD 120 MG Capsule PO ×2 (09:29→21:42)
[2021-07-27] MEDS: Cephalexin 500 MG Capsule PO ×4 (09:30→21:42)
[2021-07-27] MEDS: Calcium Carb/Vitamin D 1 TABLET Tablet 2 TABLET PO (09:30)
[2021-07-27] MEDS: Sotalol Hydrochloride 80 MG Tablet PO ×2 (09:30→21:42)
[2021-07-27] MEDS: Pantoprazole Sodium 20 MG Tablet PO (09:31)
[2021-07-27] MEDS: Anastrozole 1 MG TABLET PO (09:32)
[2021-07-27] MEDS: Menthol/Lanolin/Calamine/Znox 113 GM Tube 1 APPLIC TOPICAL ×2 (09:36→21:43)
--- NOTE | 2021-07-27 10:00 | CASEMGMT ---
Call from Ignacio at [facility] and she states pt is currently active with them but they were likely going to d/c pt d/t non-compliance. She states pt just had recent UTI but did not complete antibx and Dr. Wallace updated, voices understanding. CM to follow. Zahida ANDRES CM
--- NOTE | 2021-07-27 11:39 | PN.HOSP_ITS ---
Subjective Subjective Follow-up on acute hypoxic respiratory failure/bilateral pleural effusions Patient was seen and examined. She is going for thoracocentesis. She is on 2L oxygen. She is not on oxygen at home. Denies any fever or chills. Objective Data Objective Data Vital Signs: Vital Signs Temp Pulse Resp BP Pulse Ox 97.5 F L 64 16 140/56 H 96 07/27/21 09:55 07/27/21 09:55 07/27/21 09:55 07/27/21 09:55 07/27/21 09:55 Oxygen Flow Rate (L/min) 2 Oxygen Delivery Method Nasal Cannula Weight: 86.8 kg Body Mass Index (BMI) 31.8 Lab / Micro Data Result Diagrams: 07/28/21 07:40 07/28/21 07:40 Labs: Laboratory Results - last 24 hr 07/26/21 19:57: WBC 8.3, RBC 4.06 L, Hgb 12.3, Hct 38.6, MCV 95.1, MCH 30.3, MCHC 31.9 L, RDW Std Deviation 44.2 H, RDW Coeff of Jenna 12.7, Plt Count 230, MPV 8.8, Immature Gran % (Auto) 0.500, Neut % (Auto) 68.4, Lymph % (Auto) 13.6 L, [place] % (Auto) 9.1, Eos % (Auto) 8.0 H, Baso % (Auto) 0.4, Absolute Neuts (auto) 5.7, Absolute Lymphs (auto) 1.12, Nucleated RBC % 0 07/26/21 19:57: Sodium 140, Potassium 4.0, Chloride 102, Carbon Dioxide 32.0, Anion Gap 6, BUN 17, Creatinine 0.65, Estim Creat Clear Calc 42.39, Est GFR (MDRD) Af Amer 114, Est GFR (MDRD) Non-Af 95, BUN/Creatinine Ratio 26.3 H, Glucose 110 H, Calcium 9.1, Troponin I High Sens 7 07/26/21 19:57: B-Natriuretic Peptide 178.3 H 07/27/21 02:04: Troponin I High Sens 7 07/27/21 03:43: Troponin I High Sens 7 07/27/21 07:21: Sodium 139, Potassium 3.6, Chloride 103, Carbon Dioxide 30.0, Anion Gap 6, BUN 17, Creatinine 0.52 L, Estim Creat Clear Calc 42.39, Est GFR (MDRD) Af Amer 149, Est GFR (MDRD) Non-Af 123, BUN/Creatinine Ratio 33.0 H, Glucose 123 H, Calcium 8.0 L, Lactate Dehydrogenase 140, Troponin I High Sens 6, Total Protein 5.8 L, Globulin 3.6, Albumin/Globulin Ratio 0.6 L 07/27/21 07:21: WBC 7.9, RBC 3.50 L, Hgb 10.7 L, Hct 33.5 L, MCV 95.7, MCH 30.6, MCHC 31.9 L, RDW Std Deviation 44.5 H, RDW Coeff of Jenna 12.9, Plt Count 214, MPV 8.8, Immature Gran % (Auto) 0.600, Neut % (Auto) 67.7, Lymph % (Auto) 11.6 L, [place] % (Auto) 9.9, Eos % (Auto) 9.9 H, Baso % (Auto) 0.3, Absolute Neuts (auto) 5.3, Absolute Lymphs (auto) 0.91, Nucleated RBC % 0 07/27/21 07:21: PT 15.2 H, INR 1.3 07/27/21 07:21: APTT 38.2 H Micro: Microbiology 07/26/21 16:00 Nasal Secretion SARS-CoV-2 Antigen (Rapid) - Final Radiography Diagnostic Testing: Radiology Impression Chest X-Ray 07/26/21 16:08 IMPRESSION: Moderate bilateral pleural effusions and associated basilar opacities are new compared to prior. Underlying pneumonia should be excluded clinically. Electronically Signed: Hollis Lam MD at 16:31 EST Tel , Service support , Physical Exam Narrative Physical exam: General: Well-nourished, well-developed. Head: Normocephalic, atraumatic, no tenderness Eyes: PERRLA, EOMI ENT, no trauma, moist mucous membranes, mild whitening of tongue. No rhinorrhea Neck: Nontender, full range of motion, no spinal tenderness, deformities, step- off CVS: Regular rate and rhythm. S1-S2 present. No murmur, gallop or rub. Respiratory : Mild audible wheezing with deep breathing. No rales. Abdomen: Soft, nontender, nondistended, normal bowel sounds, no masses : Deferred Back: Nontender, no CVA tenderness, no midline spinal tenderness. Extremities: Nontender full range of motion, no trauma. Slight pitting edema. Skin: Bilateral redness of inguinal folds. Normal color, no trauma, abrasions Neuro: Alert, oriented, cranial nerves II through XII grossly intact. Psychiatry: Normal mood. Normal affect. Not depressed. Not anxious. Assessment & Plan Assessment/Plan (1) Bilateral pleural effusion: (2) Hypoxemia: (3) Morbid obesity: (4) Obesity (BMI 30.0-34.9): PLAN: 1. Acute Bilateral pleural effusion with hypoxia likely secondary to acute on chronic CHF exacerbation Bilateral Pleural effusion seen on chest x-ray Thoracocentesis ordered by patient was found not to have sufficient fluid for tap Continue on IV Lasix, strict I's and O's 2. Paroxysmal atrial fibrillation, in NSR Will continue on Cardize, sotalol and Eliquis 3. Hypertension, controlled, continue Cardizem, lisinopril Hydrochlorothiazide is on hold because of Lasix treatment 4. Intertrigo, continue nystatin powder ordered. 5. Obesity, BMI 31.8, complicates care, lifestyle modification recommended. 6. DVT PPx- Eliquis Charges/Coding Visit Charges Inpatient E&M: 54964 Subs Hosp L2
--- NOTE | 2021-07-27 12:25 | CASEMGMT ---
Addendum entered by Nubia Torres 07/27/21 15:41: Pt states has CM thru [facility] and is qualified for aides but there is not anyone to cover at this time. Zahida ANDRES CM Original Note: MCKENNA SOSA assessment: Face to Face with patient for initial transition planning/care coordination assessment. MCKENNA SOSA introduced self and role at [facility], pt voices understanding and consents to assessment. Pt is sitting up in bed in no distress on 2L nc. Pt is A/Ox4 and answers all questions appropriately. Care providers, pharmacy, and demographics verified. Presentation: Pt sent in for cough, abnormal CXR, pt 86% at home Admitting dx: bilat pleural effusions PCP: More Specialists: Merline, cardio; Georgina, onc; ENT Preferred [facility]acy: [facility] Prescription Benefit: [facility] Living Will/HPOA: Pt states does not have LW/HPOA and declines AD info. LNOK: Yannick Lopes, son; Israel Lopes, son Living Arrangements: Pt lives alone in mobile home with ramp entrance and states no concerns at home. Pt states is independent with ADL's. Pt states her [id number] stops in about once weekly to help her, if needed. Transportation: Pt drives family drives and states no transportation concerns. DME/HHC: Pt has the following DME: raised toilet seat, rollator, grab bars, lift chair, and nebulizer. Pt states no need for any further DME. Pt states no preference for DME company, if needs home oxygen at discharge. Pt states has had HHC in the past and has been to [facility] and [facility] in the past. Pt states no concerns with going home at time of discharge. Pt is retired. Pt states does not smoke cigarettes or drink ETOH. Pt voices no further concerns/needs. CM to follow for therapy notes and any further discharge planning/needs. Advised pt to ask for CM if any further questions/concerns/needs arise, voice understanding. Pt Goal: Home Plan: Home, pending therapy evals and home oxygen testing. Zahida NADRES CM
--- NOTE | 2021-07-27 13:58 | NURSING ---
Thoracentesis not performed due to insufficient fluid. MCKENNA Gongora, unavailable. [place], [place], informed.
[2021-07-27] MEDS: HYDROcodone Bitartrate/Apap 5/325 Tablet PO (18:20)
[2021-07-27] MEDS: Pravastatin 20 MG Tablet PO (21:42)
[2021-07-28] VITALS (10 sets, daily range): BP systolic 119–134; BP diastolic 50–70; PULSE 66–78; RESP 18–19; TEMP 36.4–37.3; O2SAT 92–100
[2021-07-28] MEDS: HYDROcodone Bitartrate/Apap 5/325 Tablet PO ×2 (00:01→21:35)
[2021-07-28] MEDS: Nystatin Ointment 1 APPLIC TOPICAL ×3 (05:09→19:47)
[2021-07-28] MEDS: Acetaminophen 500 MG Tablet 1000 MG PO (05:19)
--- NOTE | 2021-07-28 07:31 | RAD_ITS ---
STUDY: X-RAY CHEST REASON FOR EXAM: Female, 75 years old. Chest pain and shortness of breath TECHNIQUE: Single AP portable view of the chest. COMPARISON: 07/26/2019 FINDINGS: EKG leads overlie the chest Chronic interstitial changes in both lung guerra with stable blunting of both costophrenic angles. No interval change since the previous study. Normal size heart. Normal mediastinum and kwaku. Normal visualized pulmonary arteries. There is atherosclerotic calcification of the aortic arch with tortuosity. There are diffuse degenerative changes of the visualized thoracic spine. There is degenerative osteoarthritis of the bilateral shoulders. There is no demonstrated abnormality of the visualized soft tissue structures of the upper abdomen. RAD/Chest 1 View (Portable) IMPRESSION: No interval change Electronically Signed: Andrea Dowling MD at 8:11 EST , Service support ,
[2021-07-28 07:54] LABS: Absolute Lymphocyte Count 0.47 X10^3/uL (0.83-4.51); Absolute Neutrophil Count 15.1 X10^3/uL (2.0-7.7); Basophil# 0.04 X10^3/uL; Basophil% 0.2 % (0-1); Eosinophil# 1.02 X10^3/uL; Eosinophils% 5.7 % (0-5); Hematocrit 36.2 % (37-47); Hemoglobin 12.2 g/dL (12.0-15.0); Lymphocyte # 0.47 X10^3/ul (0.83-4.51); Lymphocyte % 2.6 % (19-41); Mean Corp Hgb Conc 33.7 g/dL (32-36); Mean Corpuscular Hgb 31.1 pg (27.0-32.0); Mean Corpuscular Volume 92.3 fL (81-99); Mean Platelet Vol. 8.8 fl (6.2-12.0); Monocyte% 5.6 % (0-10); NRBC Flagged by Analyzer 0 % (0-5); Neutrophil # 15.12 X10^3/uL (2.7-7.7); POSITIVE DIFFERENTIAL YES; Platelet Count 252 K/mm3 (150-450); RBC Distribution Width SD 43.8 fl (35.1-43.9); Red Blood Count 3.92 M/mm3 (4.2-5.4); White Blood Count 17.8 K/mm3 (4.4-11.0)
[2021-07-28 07:57] LABS: Differential Indicated SCAN CRITERIA MET
[2021-07-28 08:18] LABS: ALB/GLOB Ratio 0.7 RATIO (0.9-2.4); AST(SGOT) 3 U/L (15-37); Alanine Aminotransfer ALT/SGPT 19 U/L (13-56); Albumin, Serum 2.3 g/dL (3.2-5.0); Alkaline Phosphatase 57 U/L (45-117); Anion Gap 8 (5-15); BUN 20 mg/dL (7-18); BUN/Creat Ratio 28.4 RATIO (10-20); Calcium,Total 8.4 mg/dL (8.5-10.1); Chloride 102 mmol/L (98-107); EST Glomerular Filtration Rate 85 mL/min (>60); Est Glom Filt Rate - Afr Amer 103 mL/min (>60); Estimated Creatinine Clearance 42.39 ml/min; Globulin 3.2 g/dL (2.2-4.2); Glucose 170 mg/dL (74-106); Protein, Total 5.5 g/dL (6.4-8.2); Sodium Level 139 mmol/L (136-145)
[2021-07-28] MEDS: Furosemide 40 MG/4 ML Vial IV ×2 (08:23→17:39)
[2021-07-28] MEDS: Sotalol Hydrochloride 80 MG Tablet PO ×2 (08:25→19:47)
[2021-07-28] MEDS: Cephalexin 500 MG Capsule PO (08:25)
[2021-07-28] MEDS: Pantoprazole Sodium 20 MG Tablet PO (08:26)
[2021-07-28] MEDS: Anastrozole 1 MG TABLET PO (08:26)
[2021-07-28] MEDS: Calcium Carb/Vitamin D 1 TABLET Tablet 2 TABLET PO (08:26)
[2021-07-28] MEDS: dilTIAZem CD 120 MG Capsule PO ×2 (08:26→19:47)
[2021-07-28] MEDS: Menthol/Lanolin/Calamine/Znox 113 GM Tube 1 APPLIC TOPICAL ×2 (08:28→19:47)
[2021-07-28] MEDS: 0.9% Saline Lock 10 ML Syringe IV ×3 (08:29→17:40)
[2021-07-28] MEDS: Ondansetron 4 MG/2 ML Vial IV (10:44)
--- NOTE | 2021-07-28 11:02 | PN.HOSP_ITS ---
Subjective Subjective Follow-up on acute hypoxic respiratory failure/bilateral pleural effusions Patient was seen and examined. She complains of nausea. She is currently on 2 L of oxygen Objective Data Objective Data Vital Signs: Vital Signs Temp Pulse Resp BP Pulse Ox 97.6 F L 70 18 119/56 L 98 07/28/21 08:20 07/28/21 08:20 07/28/21 08:20 07/28/21 08:20 07/28/21 08:20 Oxygen Flow Rate (L/min) 4 Oxygen Delivery Method Nasal Cannula Weight: 87 kg Body Mass Index (BMI) 31.8 Intake & Output: Intake and Output for Last 24 Hours 07/26/21 07/27/21 07/28/21 23:59 23:59 23:59 Intake Total 220 / 220 100 / 100 Balance 220 / 220 100 / 100 Lab / Micro Data Result Diagrams: 07/28/21 07:40 07/28/21 07:40 Labs: Laboratory Results - last 24 hr 07/28/21 07:40: WBC 17.8 H, RBC 3.92 L, Hgb 12.2, Hct 36.2 L, MCV 92.3, MCH 31.1, MCHC 33.7 D, RDW Std Deviation 43.8, RDW Coeff of Jenna 13.0, Plt Count 252, MPV 8.8, Immature Gran % (Auto) 0.900, Neut % (Auto) 85.0 H, Lymph % (Auto) 2.6 L, [place] % (Auto) 5.6, Eos % (Auto) 5.7 H, Baso % (Auto) 0.2, Absolute Neuts (auto) 15.1 H, Absolute Lymphs (auto) 0.47 L, Nucleated RBC % 0 07/28/21 07:40: Sodium 139, Potassium 4.0, Chloride 102, Carbon Dioxide 29.0, Anion Gap 8, BUN 20 H, Creatinine 0.70, Estim Creat Clear Calc 42.39, Est GFR (MDRD) Af Amer 103, Est GFR (MDRD) Non-Af 85, BUN/Creatinine Ratio 28.4 H, Glucose 170 H, Calcium 8.4 L, Total Bilirubin 0.40, AST 3 L, ALT 19, Alkaline Phosphatase 57, Total Protein 5.5 L, Albumin 2.3 L, Globulin 3.2, Albumin/Globulin Ratio 0.7 L Micro: Microbiology 07/26/21 16:00 Nasal Secretion SARS-CoV-2 Antigen (Rapid) - Final Radiography Diagnostic Testing: Radiology Impression Chest Ultrasound 07/27/21 01:40 IMPRESSION: Not enough pleural fluid is seen for a safe thoracentesis. Electronically Signed: Yared Chan MD at 15:31 EST , Service support , Echocardiogram 07/27/21 01:40 Interpretation Summary The estimated ejection fraction is 55-60 %. Mild AI No significant changes from prior Echo Ordering Physician: Gerhard Hernadez Referring Physician: SHYANNE PICHARDO Performed By: Windy Basurto RDCS Chest X-Ray 07/28/21 07:31 IMPRESSION: No interval change Electronically Signed: Andrea Dowling MD at 8:11 EST , Service support , Physical Exam Narrative Physical exam: General: Alert, Oriented x3, Cooperative, appears frail, obese, on 2 L of oxygen HEENT: Atraumatic Oral: Moist Mucosa Neck: Supple Lungs: Diminished to auscultation Cardiovascular: HS I+II, regular, no murmurs Abdomen: Bowel Sounds Present, Soft, Non Tender Extremities: Trace bilateral pedal edema Assessment & Plan Assessment/Plan (1) Bilateral pleural effusion: (2) Hypoxemia: (3) Morbid obesity: (4) Obesity (BMI 30.0-34.9): PLAN: 1. Acute Bilateral pleural effusion with hypoxia likely secondary to acute on chronic CHF exacerbation Bilateral Pleural effusion seen on chest x-ray Thoracocentesis ordered by patient was found not to have sufficient fluid for tap Continue on IV Lasix, strict I's and O's 2. Paroxysmal atrial fibrillation, in NSR Will continue on Cardize, sotalol and Eliquis 3. Hypertension, controlled, continue Cardizem, lisinopril Hydrochlorothiazide is on hold because of Lasix treatment 4. Intertrigo, continue nystatin powder ordered. 5. Obesity, BMI 31.8, complicates care, lifestyle modification recommended. 6. DVT PPx- Eliquis Charges/Coding Visit Charges Inpatient E&M: 81118 Subs Hosp L2
[2021-07-28] MEDS: Polyethylene Glycol 3350 17 GM PACKET PO (11:13)
--- NOTE | 2021-07-28 15:35 | CASEMGMT ---
Addendum entered by Nubia Torres 07/28/21 15:45: Green sheet on chart for O2. Zahida ANDRES CM Original Note: Therapy is recommending SNF, or at least HHC for pt, but pt is declining both at this time. Pt states she doesn't feel great and no longer wants to discuss with this RN CM at this time. CM to follow. Zahida ANDRES CM
[2021-07-28] MEDS: APIXABAN 5 MG TABLET PO (19:47)
[2021-07-28] MEDS: Pravastatin 20 MG Tablet PO (19:47)
[2021-07-28] MEDS: Zolpidem Tartrate 5 MG Tablet PO (23:39)
[2021-07-29] VITALS (13 sets, daily range): BP systolic 95–130; BP diastolic 47–80; PULSE 67–83; RESP 16–20; TEMP 36.7–37.3; O2SAT 93–100
[2021-07-29 06:54] LABS: Absolute Lymphocyte Count 0.52 X10^3/uL (0.83-4.51); Absolute Neutrophil Count 20.3 X10^3/uL (2.0-7.7); Basophil# 0.08 X10^3/uL; Basophil% 0.3 % (0-1); Eosinophils% 9.4 % (0-5); Hematocrit 39.8 % (37-47); Hemoglobin 12.6 g/dL (12.0-15.0); Lymphocyte # 0.52 X10^3/ul (0.83-4.51); Lymphocyte % 2.1 % (19-41); Mean Corp Hgb Conc 31.7 g/dL (32-36); Mean Corpuscular Hgb 30.7 pg (27.0-32.0); Mean Corpuscular Volume 97.1 fL (81-99); Mean Platelet Vol. 9.2 fl (6.2-12.0); Monocyte# 1.01 X10^3/uL; Monocyte% 4.1 % (0-10); NRBC Flagged by Analyzer 0 % (0-5); Neutrophil # 20.29 X10^3/uL (2.7-7.7); POSITIVE DIFFERENTIAL YES; Platelet Count 302 K/mm3 (150-450); RBC Distribution Width CV 12.6 % (11.6-14.6); RBC Distribution Width SD 45.5 fl (35.1-43.9); White Blood Count 24.8 K/mm3 (4.4-11.0)
[2021-07-29] MEDS: Nystatin Ointment 1 APPLIC TOPICAL ×3 (06:57→21:55)
[2021-07-29 07:06] LABS: Eosinophil# 2.32 X10^3/uL
[2021-07-29 07:07] LABS: Differential Indicated SCAN CRITERIA MET
[2021-07-29 07:30] LABS: ALB/GLOB Ratio 0.6 RATIO (0.9-2.4); AST(SGOT) 10 U/L (15-37); Alanine Aminotransfer ALT/SGPT 20 U/L (13-56); Albumin, Serum 2.1 g/dL (3.2-5.0); Alkaline Phosphatase 59 U/L (45-117); Anion Gap 6 (5-15); BUN 34 mg/dL (7-18); Calcium,Total 8.7 mg/dL (8.5-10.1); Chloride 98 mmol/L (98-107); Creatinine, Serum 1.26 mg/dL (0.55-1.02); EST Glomerular Filtration Rate 44 mL/min (>60); Est Glom Filt Rate - Afr Amer 53 mL/min (>60); Estimated Creatinine Clearance 33.65 ml/min; Globulin 3.7 g/dL (2.2-4.2); Glucose 160 mg/dL (74-106); Potassium 4.4 mmol/L (3.5-5.1); Protein, Total 5.8 g/dL (6.4-8.2); Sodium Level 136 mmol/L (136-145)
[2021-07-29] MEDS: Anastrozole 1 MG TABLET PO (08:26)
[2021-07-29] MEDS: Menthol/Lanolin/Calamine/Znox 113 GM Tube 1 APPLIC TOPICAL ×2 (08:26→21:55)
[2021-07-29] MEDS: Calcium Carb/Vitamin D 1 TABLET Tablet 2 TABLET PO (08:26)
[2021-07-29] MEDS: Pantoprazole Sodium 20 MG Tablet PO (08:26)
[2021-07-29] MEDS: APIXABAN 5 MG TABLET PO ×2 (08:26→21:57)
[2021-07-29] MEDS: Sotalol Hydrochloride 80 MG Tablet PO ×2 (14:05→21:57)
--- NOTE | 2021-07-29 17:40 | PCM.PN.HOSP ---
Subjective Subjective Follow-up on acute hypoxic respiratory failure/bilateral pleural effusions Patient was seen and examined. No new complains. She remains on 2L oxygen. Objective Data Objective Data Vital Signs: Vital Signs Temp Pulse Resp BP Pulse Ox 98.3 F 76 16 95/51 L 95 07/29/21 15:56 07/29/21 15:56 07/29/21 15:56 07/29/21 15:56 07/29/21 17:04 Oxygen Flow Rate (L/min) 2 Oxygen Delivery Method Nasal Cannula Weight: 87.5 kg Body Mass Index (BMI) 31.8 Intake & Output: Intake and Output for Last 24 Hours 07/27/21 07/28/21 07/29/21 23:59 23:59 23:59 Intake Total 220 / 220 700 / 940 480 / 480 Output Total 100 / 100 Balance 220 / 220 600 / 840 480 / 480 Lab / Micro Data Result Diagrams: 07/29/21 05:58 07/29/21 05:58 Labs: Laboratory Results - last 24 hr 07/29/21 05:58: WBC 24.8 H, RBC 4.10 L, Hgb 12.6, Hct 39.8, MCV 97.1 D, MCH 30.7, MCHC 31.7 L D, RDW Std Deviation 45.5 H, RDW Coeff of Jenna 12.6, Plt Count 302, MPV 9.2, Immature Gran % (Auto) 2.100 H, Neut % (Auto) 82.0 H, Lymph % (Auto) 2.1 L, Patrick % (Auto) 4.1, Eos % (Auto) 9.4 H, Baso % (Auto) 0.3, Absolute Neuts (auto) 20.3 H, Absolute Lymphs (auto) 0.52 L, Nucleated RBC % 0 07/29/21 05:58: Sodium 136, Potassium 4.4, Chloride 98, Carbon Dioxide 32.0, Anion Gap 6, BUN 34 H, Creatinine 1.26 H, Estim Creat Clear Calc 33.65, Est GFR (MDRD) Af Amer 53 L, Est GFR (MDRD) Non-Af 44 L, BUN/Creatinine Ratio 27.0 H, Glucose 160 H, Calcium 8.7, Total Bilirubin 0.40, AST 10 L, ALT 20, Alkaline Phosphatase 59, Total Protein 5.8 L, Albumin 2.1 L, Globulin 3.7, Albumin/Globulin Ratio 0.6 L Micro: Microbiology 07/26/21 16:00 Nasal Secretion SARS-CoV-2 Antigen (Rapid) - Final Physical Exam Narrative Physical exam: General: Alert, Oriented x3, Cooperative, appears frail, obese, on 2 L of oxygen HEENT: Atraumatic Oral: Moist Mucosa Neck: Supple Lungs: Diminished to auscultation Cardiovascular: HS I+II, regular, no murmurs Abdomen: Bowel Sounds Present, Soft, Non Tender Extremities: Trace bilateral pedal edema Assessment & Plan Assessment/Plan (1) Bilateral pleural effusion: (2) Hypoxemia: (3) Morbid obesity: (4) Obesity (BMI 30.0-34.9): PLAN: 1. Acute Bilateral pleural effusion with hypoxia likely secondary to acute on chronic CHF exacerbation Bilateral Pleural effusion seen on chest x-ray Thoracocentesis ordered by patient was found not to have sufficient fluid for tap Will hold IV Lasix as creatinine appears to be increasing Continue strict I's and O's 2.BEREKET, likely pre-renal from dehydration Admitting Cr 1.26, baseline is 0.70 Lasix on hold Will continue to trend 3. Paroxysmal atrial fibrillation, in NSR Will continue on Cardizem, sotalol and Eliquis 4. Hypertension, controlled, continue Cardizem, lisinopril Hydrochlorothiazide is on hold because of Lasix treatment 5. Intertrigo, continue nystatin powder ordered. 6. Obesity, BMI 31.8, complicates care, lifestyle modification recommended. 7. DVT PPx- Eliquis Charges/Coding Visit Charges Inpatient E&M: 48416 Subs Hosp L2
[2021-07-29] MEDS: Pravastatin 20 MG Tablet PO (21:57)
[2021-07-29] MEDS: dilTIAZem CD 120 MG Capsule PO (21:57)
[2021-07-29] MEDS: HYDROcodone Bitartrate/Apap 5/325 Tablet PO (21:59)
[2021-07-30] VITALS (15 sets, daily range): BP systolic 84–105; BP diastolic 45–56; PULSE 58–66; RESP 14–18; TEMP 36.6–36.8; O2SAT 88–99
--- NOTE | 2021-07-30 00:30 | PCS.PANDOC ---
PANDEMIC DOCUMENTATION INITIATED: Date: 03/06/2021 Time: 190
[2021-07-30] MEDS: Nystatin Ointment 1 APPLIC TOPICAL ×3 (05:12→20:49)
[2021-07-30 06:39] LABS: ALB/GLOB Ratio 0.5 RATIO (0.9-2.4); AST(SGOT) 7 U/L (15-37); Alanine Aminotransfer ALT/SGPT 15 U/L (13-56); Albumin, Serum 1.7 g/dL (3.2-5.0); Alkaline Phosphatase 65 U/L (45-117); Anion Gap 20 (5-15); BUN 37 mg/dL (7-18); BUN/Creat Ratio 16.2 RATIO (10-20); Calcium,Total 5.5 mg/dL (8.5-10.1); Chloride 97 mmol/L (98-107); Creatinine, Serum 2.28 mg/dL (0.55-1.02); EST Glomerular Filtration Rate 22 mL/min (>60); Est Glom Filt Rate - Afr Amer 27 mL/min (>60); Estimated Creatinine Clearance 18.59 ml/min; Globulin 3.7 g/dL (2.2-4.2); Glucose 94 mg/dL (74-106); Potassium 4.4 mmol/L (3.5-5.1); Protein, Total 5.4 g/dL (6.4-8.2); Sodium Level 134 mmol/L (136-145)
[2021-07-30] MEDS: Anastrozole 1 MG TABLET PO (08:14)
[2021-07-30] MEDS: Calcium Carb/Vitamin D 1 TABLET Tablet 2 TABLET PO (08:14)
[2021-07-30] MEDS: Pantoprazole Sodium 20 MG Tablet PO (08:14)
[2021-07-30] MEDS: Menthol/Lanolin/Calamine/Znox 113 GM Tube 1 APPLIC TOPICAL ×2 (08:15→20:49)
[2021-07-30] MEDS: APIXABAN 5 MG TABLET PO ×2 (08:15→20:49)
[2021-07-30] MEDS: Sotalol Hydrochloride 80 MG Tablet PO (10:56)
[2021-07-30 10:58] LABS: ALB/GLOB Ratio 0.5 RATIO (0.9-2.4); AST(SGOT) 6 U/L (15-37); Alanine Aminotransfer ALT/SGPT 15 U/L (13-56); Albumin, Serum 1.8 g/dL (3.2-5.0); Alkaline Phosphatase 55 U/L (45-117); Anion Gap 7 (5-15); BUN 51 mg/dL (7-18); BUN/Creat Ratio 20.2 RATIO (10-20); Chloride 95 mmol/L (98-107); Creatinine, Serum 2.53 mg/dL (0.55-1.02); EST Glomerular Filtration Rate 20 mL/min (>60); Est Glom Filt Rate - Afr Amer 24 mL/min (>60); Estimated Creatinine Clearance 16.76 ml/min; Globulin 3.5 g/dL (2.2-4.2); Glucose 143 mg/dL (74-106); Potassium 4.6 mmol/L (3.5-5.1); Protein, Total 5.3 g/dL (6.4-8.2); Sodium Level 133 mmol/L (136-145)
--- NOTE | 2021-07-30 11:28 | PN.HOSP_ITS ---
Subjective Subjective She reportedly dropped her blood pressure yesterday.Follow-up on acute hypoxic respiratory failure/bilateral pleural effusions Patient was seen and examined. Patient was relatively hypotensive yesterday. Did not receive Cardizem. She received only on sotalol. IV Lasix was discontinued yesterday on account of acute kidney injury. She denies any chest pain or dizziness. Objective Data Objective Data Vital Signs: Vital Signs Temp Pulse Resp BP Pulse Ox 97.9 F 65 16 105/50 L 95 07/30/21 10:25 07/30/21 10:25 07/30/21 10:25 07/30/21 10:25 07/30/21 10:25 Oxygen Flow Rate (L/min) 2 Oxygen Delivery Method Room Air Weight: 88.9 kg Body Mass Index (BMI) 31.8 Intake & Output: Intake and Output for Last 24 Hours 07/28/21 07/29/21 07/30/21 23:59 23:59 23:59 Intake Total 700 / 940 1060 / 1060 200 / 200 Output Total 100 / 100 Balance 600 / 840 1060 / 1060 200 / 200 Lab / Micro Data Result Diagrams: 07/29/21 05:58 07/30/21 10:23 Labs: Laboratory Results - last 24 hr 07/30/21 04:47: Sodium 134 L, Potassium 4.4, Chloride 97 L, Carbon Dioxide 17.0 L, Anion Gap 20 H, BUN 37 H, Creatinine 2.28 H, Estim Creat Clear Calc 18.59, Est GFR (MDRD) Af Amer 27 L, Est GFR (MDRD) Non-Af 22 L, BUN/Creatinine Ratio 16.2, Glucose 94, Calcium 5.5 L*, Total Bilirubin 0.30, AST 7 L, ALT 15, Alkaline Phosphatase 65, Total Protein 5.4 L, Albumin 1.7 L, Globulin 3.7, Albumin/Globulin Ratio 0.5 L 07/30/21 10:23: Sodium 133 L, Potassium 4.6, Chloride 95 L, Carbon Dioxide 31.0, Anion Gap 7, BUN 51 H, Creatinine 2.53 H, Estim Creat Clear Calc 16.76, Est GFR (MDRD) Af Amer 24 L, Est GFR (MDRD) Non-Af 20 L, BUN/Creatinine Ratio 20.2 H, Glucose 143 H, Calcium 8.0 L, Total Bilirubin 0.30, AST 6 L, ALT 15, Alkaline Phosphatase 55, Total Protein 5.3 L, Albumin 1.8 L, Globulin 3.5, Album in/Globulin Ratio 0.5 L Micro: Microbiology 07/26/21 16:00 Nasal Secretion SARS-CoV-2 Antigen (Rapid) - Final Physical Exam Narrative Physical exam: General: Alert, Oriented x3, Cooperative, No apparent distress, appears unwell, on 4 L of oxygen Oral: Moist Mucosa Neck: Supple Lungs: Clear to auscultation Cardiovascular: HS I+II, regular, no murmurs Abdomen: Bowel Sounds Present, Soft, Non Tender Extremities: No edema Assessment & Plan Assessment/Plan (1) Bilateral pleural effusion: (2) Hypoxemia: (3) Morbid obesity: (4) Obesity (BMI 30.0-34.9): PLAN: 1. Acute hypoxic respiratory failure secondary to acute Bilateral pleural effusion with hypoxia likely secondary to acute on chronic CHF exacerbation Bilateral Pleural effusion seen on chest x-ray Thoracocentesis ordered by patient was found not to have sufficient fluid for tap Currently on 4 L of oxygen; worsened from 2 L is she of sleep apnea of oxygen Suspect patient has chronic lung disease - Patient was treated initially for acute CHF with IV Lasix Lasix held on 07/29/21 on account of BEREKET Continue to monitor, encourage use of incentive spirometer, wean off oxygen 2.BEREKET, likely pre-renal from dehydration/relative hypotension, worsening Creatinine now is 2.53, admitting Cr 1.26, baseline is 0.70 Continue to hold Lasix, check urine sodium, urine urea, creatinine, UA, Ultrasound of the kidneys Nephrology consult 3. Relative hypotension, patient did not receive Cardizem yesterday Review of outpatient notes shows that on 07/17/21; cardiology asked patient to decrease Cardizem to 120 mg p.o. daily Cardizem discontinued now, sotalol decreased to 40 mg p.o. twice daily Continue hold hydrochlorothiazide Would add holding parameters Continue to monitor blood pressure 4. Paroxysmal atrial fibrillation, in NSR Continue on Eliquis, reduce dose of sotalol 40 mg p.o. twice daily 5. Intertrigo, continue nystatin powder ordered. 6. Obesity, BMI 31.8, complicates care, lifestyle modification recommended. 7. Debility related to the above -PT and OT to evaluate and treat 8. DVT PPx- Eliquis Charges/Coding Visit Charges Inpatient E&M: 63897 Subs Hosp L2
--- NOTE | 2021-07-30 11:31 | US_ITS ---
STUDY: RENAL ULTRASOUND - COMPLETE REASON FOR EXAM: Female, 75 years old. BEREKET TECHNIQUE: Ultrasound evaluation of the kidneys was performed with real-time and static fernandes-scale imaging. COMPARISON: None. FINDINGS: RIGHT KIDNEY: Normal location of the right kidney, which is normal in size. The right kidney measures 11.4 cm x 5 cm x 5.4 cm. There is a normal cortex of the right kidney. The renal cortex measures 1.6 cm. There is no right renal mass or cyst. There are no right renal calculi. There is no right hydronephrosis. DISTAL RIGHT URETER: There is non-visualization of the distal right ureter. There is no demonstrated right ureterovesical junction calculus. There is a visualized right ureteral jet. LEFT KIDNEY: Normal location of the left kidney, which is normal in size. The left kidney measures 11.4 cm x 4.5 cm x 5.4 cm. There is a normal cortex of the left kidney. The renal cortex measures 1.6 cm. There is no left renal mass or cyst. There are no left renal calculi. There is no left hydronephrosis. DISTAL LEFT URETER: There is non-visualization of the distal left ureter. There is no demonstrated left ureterovesical junction calculus. There is a visualized left ureteral jet. BLADDER: The distended urinary bladder has a volume of 60 ml. There is a normal wall thickness of the distended urinary bladder. There is no demonstrated mass within the urinary bladder. There are no demonstrated bladder calculi. US/Kidney and Bladder IMPRESSION: Normal ultrasound of the kidneys and urinary bladder. Electronically Signed: Yared Chan MD at 10:21 EST , Service support ,
--- NOTE | 2021-07-30 13:12 | CON.PCM.RE_ITS ---
Assessment & Plan Assessment/Plan (1) BEREKET (acute kidney injury): PLAN: -The patient has normal baseline renal function. Serum creatinine was 0.88 mg on 02/07/2021. Serum creatinine was 0.70 mg/dL as recently as 07/28/2021. -Acute kidney injury is likely prerenal. -BEREKET may be secondary to overdiuresis in the setting of dyspnea from other causes rather than heart failure. BEREKET can also be due to relatively low BP in the past 24 to 48 hours. -Less likely to be cardiorenal BEREKET since renal function worsened significantly with diuresis. Typically, in cardiorenal BEREKET renal function will either stabilize or even improve with diuresis. -Other causes of BEREKET is still possible. Therefore, I agree with work-up for causes of BEREKET with urinalysis, urine indices, and urine protein to creatinine ratio. -I will also check renal ultrasound to assess kidney size and to rule out any possible obstructive causes. -There is no need for kidney replacement therapy at this point since the patient is not hyperkalemic, acidotic or volume overloaded on exam. -Current medications are reviewed and are appropriately dosed for the patient's estimated creatinine clearance. (2) Hyponatremia: PLAN: -The patient has mild hyponatremia. Serum sodium today is 133 mmol/L. There is no worrisome symptoms of hyponatremia such as headache, nausea, or ataxia. -We will follow serum sodium. If there is any worsening hyponatremia, I will work-up more aggressively. (3) Hypoalbuminemia: PLAN: -Serum albumin is only 1.8 g/dL in this patient. -Although there is no overt signs of nephrotic syndrome, I will check urine protein to creatinine ratio. (4) Acute and chronic respiratory failure with hypoxia: (5) HTN (hypertension): PLAN: -BP is actually on the lower side currently. -Agree with decreasing the dose of sotalol and stopping diltiazem for now. -The patient is also off of her usual home dose of lisino pril/hydrochlorothiazide which I agree with. HPI Consult Data Date of Consult: 07/30/21 HPI Narrative Reason for Consultation: Acute kidney injury HPI Narrative: ALLISON MAHER is a 75-year-old woman with past history of right breast cancer status post mastectomy, CAD, atrial fibrillation on apixaban, COPD, KWABENA, hypertension, and hyperlipidemia. The patient presented to the hospital on 07/26/2021 with increasing dyspnea over the past 1 to 2 weeks. The patient was found by her home health nurse to be hypoxemic at home. The patient was admitted to the hospital for treatment of acute hypoxic respiratory failure. Initial chest x-ray did show bilateral pleural effusion. She tested negative for COVID-19. The patient was initially treated with diuresis because of pleural effusion. There was not enough effusion to undergo thoracentesis. Nephrology is asked to see the patient because of worsening renal function over the past 72 hours. Her serum creatinine increased from 0.70 mg/dL on 07/28/2021 up to 2.53 mg/dL today. Blood pressure has been labile during this admission. Current systolic blood pressure has been closed with the upper 90s and low 100s in the past 48 hours. Because of worsening renal function, furosemide was stopped. The last dose of furosemide was on 07/27/2021. The patient denies chest pain. She does have shortness of breath with exertion but none at rest. She has subjective increasing lower extremity edema, but there is no nausea, vomiting, or diarrhea. In fact, the patient is constipated for the last 2 days. Appetite has been marginal. There has been no recent exposure to IV contrast or NSAIDs. The patient denies lower urinary tract symptoms. [facility] Medical History Atherosclerotic heart disease of [place] coronary artery without angina pectoris Atrial fibrillation Atrial fibrillation CAD (coronary artery disease) Chronic pain COPD (chronic obstructive pulmonary disease) Essential hypertension GERD (gastroesophageal reflux disease) Hx of deep vein thrombophlebitis of lower extremity Hyperlipidemia Insomnia Iron deficiency anemia due to chronic blood loss Lumbar spondylosis Obesity Obstructive sleep apnea Osteoarthritis Osteoporosis Paroxysmal atrial fibrillation Paroxysmal atrial tachycardia Personal history of pulmonary embolism port placement PORT REMOVAL Pure hypercholesterolemia PVD (peripheral vascular disease) Rectal prolapse Thyroid cancer Home Medications albuterol sulfate 2 puff INHALATION Q4H PRN PRN 06/16/13 [History Last Taken 10/01/17 08:00] omeprazole 20 mg PO DAILY 06/16/13 [History Last Taken 07/11/21] calcium citrate-vitamin D3 2 tab PO DAILY 10/24/18 [History Last Taken 07/11/21] zolpidem 6.25 mg PO QHS PRN PRN 03/24/19 [History Last Taken 07/10/21] Prolia 60 mg SUBCUT .[id number] 11/25/20 [History Last Taken 05/22/21] acetaminophen 1,300 mg PO DAILY PRN 11/25/20 [History Last Taken 07/11/21] hydrocodone-acetaminophen 1 tab PO TID 11/25/20 [History Last Taken 07/10/21] anastrozole 1 mg tablet 1 mg PO DAILY 90 Days #90 tab 01/04/21 [Rx Last Taken 07/11/21] Eliquis 5 mg PO BID 02/06/21 [History Last Taken 07/11/21] lisinopril-hydrochlorothiazide 1 tab PO DAILY 02/06/21 [History Last Taken 07/09/21] sotalol 80 mg tablet 80 mg PO BID #60 tab 02/27/21 [Rx Last Taken 07/11/21] pravastatin 20 mg tablet 20 mg PO QHS tab 04/28/21 [History Last Taken 07/10/21] L.acidoph,saliva-B.bif-S.therm [Acidophilus Probiotic Blend] 1 cap PO DAILY 07/27/21 [History Last Taken Unknown] cephalexin 500 mg PO Q6 07/27/21 [History Last Taken Unknown] diltiazem HCl [Cardizem CD] 120 mg PO BID 07/27/21 [History Last Taken Unknown] Allergy/AdvReac Type Severity Reaction Status Date / Time niacin Allergy Intermediate I DON'T Verified 07/27/21 13:14 REMEMBER, I CAN'T TAKE IT bee stings Allergy Swelling Uncoded 07/27/21 13:14 Family History Brother Diabetes Heart disease Sister Breast cancer Mother Cancer brain and bone mets Aunt Breast cancer Grandmother Cancer Surgical History History of appendectomy History of cholecystectomy History of incisional hernia repair Hx of mastectomy S/P appendectomy S/P carpal tunnel release S/P cataract extraction S/P hysterectomy S/P lumbar discectomy S/P partial thyroidectomy S/P revision of total knee S/P right breast biopsy S/P total knee replacement Social History household members: none Smoking Status: Never smoker alcohol intake: never substance use type: does not use caffeine: No ROS ROS Narrative 07/02 ROS done. Otherwise, noncontributory. Physical Exam Narrative General: Alert and oriented x3, in no apparent distress. HEENT: Normocephalic, atraumatic. Mucous membrane moist without mucosal erythema. PERRLA, EOMI. Hearing is intact. Neck: Supple, no JVD. Lungs: Clear to auscultation bilaterally anteriorly. Mild decrease in bases when auscultated posteriorly. Abdomen: Normal bowel sound, soft, nontender, no guarding or rebound. No organomegaly palpated. Extremity: No edema in the lower extremity. There is no clubbing or cyanosis. Musculoskeletal: Full passive range of motion. No joint swelling. Skin: Warm and dry. No rash. Psychiatric: Flat affect. Normal mood. Lab / Micro Data Result Diagrams: 07/29/21 05:58 07/30/21 10:23 Labs: Laboratory Results - last 24 hr 07/30/21 04:47: Sodium 134 L, Potassium 4.4, Chloride 97 L, Carbon Dioxide 17.0 L, Anion Gap 20 H, BUN 37 H, Creatinine 2.28 H, Estim Creat Clear Calc 18.59, Est GFR (MDRD) Af Amer 27 L, Est GFR (MDRD) Non-Af 22 L, BUN/Creatinine Ratio 16.2, Glucose 94, Calcium 5.5 L*, Total Bilirubin 0.30, AST 7 L, ALT 15, Alkaline Phosphatase 65, Total Protein 5.4 L, Albumin 1.7 L, Globulin 3.7, Albumin/Globulin Ratio 0.5 L 07/30/21 10:23: Sodium 133 L, Potassium 4.6, Chloride 95 L, Carbon Dioxide 31.0, Anion Gap 7, BUN 51 H, Creatinine 2.53 H, Estim Creat Clear Calc 16.76, Est GFR (MDRD) Af Amer 24 L, Est GFR (MDRD) Non-Af 20 L, BUN/Creatinine Ratio 20.2 H, Glucose 143 H, Calcium 8.0 L, Total Bilirubin 0.30, AST 6 L, ALT 15, Alkaline Phosphatase 55, Total Protein 5.3 L, Albumin 1.8 L, Globulin 3.5, Album in/Globulin Ratio 0.5 L
[2021-07-30] MEDS: Acetaminophen 500 MG Tablet 1000 MG PO (13:42)
[2021-07-30 19:04] LABS: Urea Nitrogen, Urine 251 mg/dL (NO RANGE EST.); Urine Sodium 9 mmol/L (Not Establ.)
[2021-07-30 19:30] LABS: Mucous, Urine 0 SEEN /hpf (<or=2+)
[2021-07-30 19:32] LABS: Color, Urine Yellow (Yellow); Glucose, Dipstick Normal (Normal); Ketone-Dipstick 5 mg/dl (Negative); Leukocyte Esterase-Dipstick 500 /ul (Negative); Nitrite-Dipstick Negative (Negative); Occult Blood-Urine 150 /ul (Negative); Protein-Dipstick 30 mg/dl (Negative); Specific Gravity, Urine 1.025 (1.002-1.030); Urine Clarity Cloudy (Clear); Urine Urobilinogen Normal (Normal)
[2021-07-30 19:35] LABS: Urine Bilirubin Dipstick 1 mg/dL (Negative)
[2021-07-30 19:39] LABS: Bacteria 1+ /hpf (None Seen); Red Blood Cells-Urine 0-5 SEEN /hpf (0-5); Squamous Epithelial Cells - UA 0-5 SEEN /hpf (5-10); White Blood Cells >100 SEEN /hpf (0-5)
[2021-07-30 19:40] LABS: Transitional Epithelial - Ur 0-5 SEEN /hpf (0-5)
[2021-07-30] MEDS: Pravastatin 20 MG Tablet PO (20:48)
[2021-07-30] MEDS: DiphenhydrAMINE 25 MG Capsule PO (21:36)
[2021-07-31] VITALS (10 sets, daily range): BP systolic 103–118; BP diastolic 47–55; PULSE 60–72; RESP 16–22; TEMP 36.4–36.7; O2SAT 97–99
[2021-07-31] MEDS: HYDROcodone Bitartrate/Apap 5/325 Tablet PO (00:42)
[2021-07-31] MEDS: DiphenhydrAMINE 25 MG Capsule PO ×3 (05:12→20:34)
[2021-07-31] MEDS: Nystatin Ointment 1 APPLIC TOPICAL ×2 (05:12→20:33)
[2021-07-31 07:36] LABS: Albumin, Serum 1.7 g/dL (3.2-5.0); BUN 62 mg/dL (7-18); BUN/Creat Ratio 24.9 RATIO (10-20); Calcium,Total 7.9 mg/dL (8.5-10.1); Chloride 94 mmol/L (98-107); Creatinine, Serum 2.49 mg/dL (0.55-1.02); EST Glomerular Filtration Rate 20 mL/min (>60); Est Glom Filt Rate - Afr Amer 24 mL/min (>60); Estimated Creatinine Clearance 17.03 ml/min; Glucose 178 mg/dL (74-106); Phosphorus 3.6 mg/dL (2.5-4.9); Sodium Level 131 mmol/L (136-145)
[2021-07-31] MEDS: APIXABAN 5 MG TABLET PO ×2 (11:49→20:27)
[2021-07-31] MEDS: Calcium Carb/Vitamin D 1 TABLET Tablet 2 TABLET PO (11:49)
[2021-07-31] MEDS: Pantoprazole Sodium 20 MG Tablet PO (11:49)
[2021-07-31] MEDS: Anastrozole 1 MG TABLET PO (11:50)
--- NOTE | 2021-07-31 13:07 | PCM.PN.HOSP ---
Subjective Subjective Patient is a 75-year-old lady admitted with shortness of breath. An assessment of acute hypoxic respiratory failure secondary to CHF exacerbation made admitted to a monitored bed for subsequent management. Patient was also found to have worsening azotemia following initiation of diuretics which had to be placed on hold Objective Data Objective Data Vital Signs: Vital Signs Temp Pulse Resp BP Pulse Ox 97.6 F L 64 16 107/51 L 99 07/31/21 11:42 07/31/21 11:42 07/31/21 11:42 07/31/21 11:42 07/31/21 11:42 Oxygen Flow Rate (L/min) 2 Oxygen Delivery Method Nasal Cannula Weight: 88.9 kg Body Mass Index (BMI) 31.8 Intake & Output: Intake and Output for Last 24 Hours 07/29/21 07/30/21 07/31/21 23:59 23:59 23:59 Intake Total 1060 / 1060 2000 / 2000 550 / 550 Output Total 120 / 120 Balance 1060 / 1060 1880 / 1880 550 / 550 Lab / Micro Data Result Diagrams: 07/29/21 05:58 07/31/21 06:31 Labs: Laboratory Results - last 24 hr 07/30/21 18:42: Ur Random Sodium 9, Urine Creatinine 269.00, Urine Urea Nitrogen 251 07/30/21 18:47: Urine Color Yellow, Urine Clarity Cloudy, Urine pH 5.0, Ur Specific [place] 1.025, Urine Protein 30 H, Urine Glucose (UA) Normal, Urine Ketones 5 H, Urine Occult Blood 150 H, Urine Nitrite Negative, Urine Bilirubin 1 H, Urine Urobilinogen Normal, Ur Leukocyte Esterase 500 H, Urine RBC 0-5 SEEN, Urine WBC >100 SEEN, Ur Squamous Epith Cells 0-5 SEEN, Ur Transition Epith Cell 0-5 SEEN, Urine Bacteria 1+, Urine Mucus 0 SEEN 07/31/21 06:31: Sodium 131 L, Potassium 4.0, Chloride 94 L, Carbon Dioxide 31.0, BUN 62 H, Creatinine 2.49 H, Estim Creat Clear Calc 17.03, Est GFR (MDRD) Af Amer 24 L, Est GFR (MDRD) Non-Af 20 L, BUN/Creatinine Ratio 24.9 H, Glucose 178 H, Calcium 7.9 L, Phosphorus 3.6, Albumin 1.7 L Micro: Microbiology 07/26/21 16:00 Nasal Secretion SARS-CoV-2 Antigen (Rapid) - Final Radiography Diagnostic Testing: Radiology Impression Renal Ultrasound 07/30/21 11:31 IMPRESSION: Normal ultrasound of the kidneys and urinary bladder. Electronically Signed: Yared Chan MD at 10:21 EST , Service support , Physical Exam Narrative GENERAL: cooperative HEENT: Atraumatic; EYES; Anicteric, Normal Conjunctiva NECK; supple, normal thyroid, RESPIRATORY: Diminished to auscultation CARDIOVASCULAR: Regular S1 S2, GI: soft, normoactive bowel sounds, : No Renal angle tenderness; EXTREMITIES: edema, no clubbing, MUSCULOSKELETAL: no muscle waisting NEURO: Awake; no lateralizing signs. SKIN: No Rash PSYCH; Flat affect Assessment & Plan Assessment/Plan (1) Bilateral pleural effusion: (2) Hypoxemia: (3) Morbid obesity: (4) Obesity (BMI 30.0-34.9): PLAN: Patient is a 75-year-old lady admitted with shortness of breath. An assessment of acute hypoxic respiratory failure secondary to CHF exacerbation made admitted to a monitored bed for subsequent management. Patient was also found to have worsening azotemia following initiation of diuretics which had to be placed on hold 1. Acute hypoxic respiratory failure Secondary to acute on chronic congestive heart failure. Patient was initially managed with Lasix however held in view of worsening kidney function 2. Acute on chronic congestive heart failure with preserved ejection fraction ? Echo obtained demonstrated EF of 55 to 60% with mild aortic insufficiency. Managed initially with Lasix held in view of worsening kidney function 3. Bilateral pleural effusion plan was for patient to have undergoing ultrasound-guided thoracocentesis however not enough fluid was available to be tapped 4. Acute cystitis ? Started on Rocephin cultures sent 5. Acute kidney injury Secondary to combination of hypotension and use of diuretics. Baseline creatinine 0.7 creatinine peaked at 2.53 6. Essential hypertension - patient antihypertensives placed on hold in view of relative hypotension 7. Paroxysmal atrial fibrillation, Patient in sinus rhythm. On sotalol for rate control and systemic anticoagulation with Eliquis 8. Class I obesity with BMI of 32.6 ? Weight loss advised 9. Intertrigo ? Management nystatin powder 10. Physical deconditioning - Requested for PT OT eval and social security assessor to assist with discharge planning 11. Dyslipidemia -Patient is on statin therapy, continued at home dose 12. 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 DVT prophylaxis ? Eliquis Charges/Coding Visit Charges Inpatient E&M: 71962 Subs Hosp L3
[2021-07-31] MEDS: Menthol/Lanolin/Calamine/Znox 113 GM Tube 1 APPLIC TOPICAL ×2 (13:30→20:33)
--- NOTE | 2021-07-31 15:16 | PCM.PN.REN ---
Subjective Subjective Following for BEREKET Resting in bed, no complaints except for no appetite. Objective Data Objective Data Vital Signs: Vital Signs Temp Pulse Resp BP Pulse Ox 97.6 F L 64 16 107/51 L 99 07/31/21 11:42 07/31/21 11:42 07/31/21 11:42 07/31/21 11:42 07/31/21 11:42 Oxygen Flow Rate (L/min) 2 Oxygen Delivery Method Nasal Cannula Weight: 88.9 kg Body Mass Index (BMI) 31.8 Intake & Output: Intake and Output for Last 24 Hours 07/29/21 07/30/21 07/31/21 23:59 23:59 23:59 Intake Total 1060 / 1060 2000 / 2000 550 / 550 Output Total 120 / 120 Balance 1060 / 1060 1880 / 1880 550 / 550 Lab / Micro Data Result Diagrams: 07/29/21 05:58 07/31/21 06:31 Labs: Laboratory Results - last 24 hr 07/30/21 18:42: Ur Random Sodium 9, Urine Creatinine 269.00, Urine Urea Nitrogen 251 07/30/21 18:47: Urine Color Yellow, Urine Clarity Cloudy, Urine pH 5.0, Ur Specific [place] 1.025, Urine Protein 30 H, Urine Glucose (UA) Normal, Urine Ketones 5 H, Urine Occult Blood 150 H, Urine Nitrite Negative, Urine Bilirubin 1 H, Urine Urobilinogen Normal, Ur Leukocyte Esterase 500 H, Urine RBC 0-5 SEEN, Urine WBC >100 SEEN, Ur Squamous Epith Cells 0-5 SEEN, Ur Transition Epith Cell 0-5 SEEN, Urine Bacteria 1+, Urine Mucus 0 SEEN 07/31/21 06:31: Sodium 131 L, Potassium 4.0, Chloride 94 L, Carbon Dioxide 31.0, BUN 62 H, Creatinine 2.49 H, Estim Creat Clear Calc 17.03, Est GFR (MDRD) Af Amer 24 L, Est GFR (MDRD) Non-Af 20 L, BUN/Creatinine Ratio 24.9 H, Glucose 178 H, Calcium 7.9 L, Phosphorus 3.6, Albumin 1.7 L Micro: Microbiology 07/26/21 16:00 Nasal Secretion SARS-CoV-2 Antigen (Rapid) - Final Radiography Diagnostic Testing: Radiology Impression Renal Ultrasound 07/30/21 11:31 IMPRESSION: Normal ultrasound of the kidneys and urinary bladder. Electronically Signed: Yared Chan MD at 10:21 EST , Service support , Physical Exam Narrative Const: A&Ox3. Respiratory: Lung sounds clear anteriorly; diminished breath sounds bases; no wheezes, rhonchi, rales noted Cardio: S1-S2, rhythm rate regular Extremities: No pitting edema noted bilateral lower leg Assessment & Plan Assessment/Plan (1) BEREKET (acute kidney injury): PLAN: - Nonoliguric BEREKET possibly secondary to overdiuresis in setting of dyspnea rather than heart failure. Normal baseline creatinine. Creatinine 0.65 mg/dL on admission, peaked at 2.53 mg/dL on 07/30/2021. Today creatinine 2.49 mg/dL. Renal ultrasound did not show any hydronephrosis, normal ultrasound of kidneys and urinary bladder. Urine Na 9. Continue holding diuretics for now. Encourage patient to try and increase oral intake. Hopefully renal function is beginning to peak and hope for improvement tomorrow. 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 (2) Hyponatremia: PLAN: Normal baseline sodium. Sodium 131. Patient does complain of nausea, dry mouth but no other symptoms of hyponatremia at this time. No need for 3% saline, tolvaptan, at this time. (3) Acute and chronic respiratory failure with hypoxia: PLAN: - echo: EF of 55 to 60% with mild aortic insufficiency. lasix on hold (4) HTN (hypertension): PLAN: Bps have improved but still marginal low.
--- NOTE | 2021-07-31 15:30 | CHAPLAIN ---
Type of Pastoral Visit _x__ Initial Visit ___ Follow-up Visit ___ On-call Visit ___ General Patient Visit ___ Spiritual Assessment ___ Family Conference ___ Bereavement ___ Rapid Response ___ Code Blue ___ Other (describe below) Pastoral Care Referral From _x__ Patient ___ Family ___ Nurse ___ Physician ___ Senior Accounts Payable Specialist ___ Rug Shampooer ___ Other (describe below) Sacrament/Intervention _x__ Active listening ___ Anointing ___ Christianity ___ Bereavement ___ Communion _x__ Liz exploration ___ _x__ Life review _x__ Prayer ___ Reconciliation ___ Sacrament of Sick _x__ Supportive presence ___ Wedding ___ Other (describe below) Pastoral Comments patient speaks of her grief as in fall; pt goal is to go home; pt has some family in the area and is connected to a local zoroastrianism for support; pt requests prayer
[2021-07-31] MEDS: Senna/Docusate Sodium 1 Tablet 2 TABLET PO (16:51)
[2021-07-31] MEDS: Acetaminophen 500 MG Tablet 1000 MG PO (20:31)
[2021-07-31] MEDS: Pravastatin 20 MG Tablet PO (20:31)
[2021-07-31] MEDS: Sotalol Hydrochloride 80 MG Tablet 40 MG PO (20:32)
[2021-07-31] MEDS: Zolpidem Tartrate 5 MG Tablet PO (20:40)
[2021-07-31] MEDS: Albuterol 2.5 MG/3 ML VIAL.NEB. INHALATION (21:00)
[2021-08-01] VITALS (10 sets, daily range): BP systolic 106–143; BP diastolic 51–64; PULSE 64–73; RESP 18–24; TEMP 36.3–36.8; O2SAT 90–99
[2021-08-01] MEDS: Acetaminophen 500 MG Tablet 1000 MG PO (04:37)
[2021-08-01 06:49] LABS: Hematocrit 33.4 % (37-47); Hemoglobin 11.2 g/dL (12.0-15.0); Mean Corp Hgb Conc 33.5 g/dL (32-36); Mean Corpuscular Hgb 31.2 pg (27.0-32.0); Mean Platelet Vol. 8.8 fl (6.2-12.0); POSITIVE DIFFERENTIAL YES; Platelet Count 329 K/mm3 (150-450); RBC Distribution Width CV 12.6 % (11.6-14.6); RBC Distribution Width SD 43.1 fl (35.1-43.9); Red Blood Count 3.59 M/mm3 (4.2-5.4); White Blood Count 15.7 K/mm3 (4.4-11.0)
[2021-08-01 07:05] LABS: Anion Gap 5 (5-15); BUN 56 mg/dL (7-18); BUN/Creat Ratio 37.6 RATIO (10-20); Chloride 98 mmol/L (98-107); Creatinine, Serum 1.49 mg/dL (0.55-1.02); EST Glomerular Filtration Rate 36 mL/min (>60); Est Glom Filt Rate - Afr Amer 44 mL/min (>60); Estimated Creatinine Clearance 28.45 ml/min; Glucose 149 mg/dL (74-106); Magnesium 2.4 mg/dL (1.6-2.6); Potassium 4.1 mmol/L (3.5-5.1); Sodium Level 133 mmol/L (136-145)
[2021-08-01 08:18] LABS: Differential Indicated MANUAL DIFF
[2021-08-01 09:23] LABS: Eosinophil 32 % (0-5); Lymphocyte 6 % (19-41); Monocyte 7 % (0-10); Neutrophil-Band 2 % (0-5); Neutrophil-Segmented 53 % (47-70); Polychromasia 1+; Total Cells Counted 100 (MANUAL DIFF)
[2021-08-01 09:24] LABS: Ovalocyte RARE
[2021-08-01 09:28] LABS: Absolute Lymphocyte Count 0.95 X10^3/uL (0.83-4.51); Absolute Neutrophil Count 13.7 X10^3/uL (2.0-7.7)
[2021-08-01] MEDS: APIXABAN 5 MG TABLET PO (10:02)
[2021-08-01] MEDS: Pantoprazole Sodium 20 MG Tablet PO (10:02)
[2021-08-01] MEDS: Anastrozole 1 MG TABLET PO (10:02)
[2021-08-01] MEDS: Calcium Carb/Vitamin D 1 TABLET Tablet 2 TABLET PO (10:02)
[2021-08-01] MEDS: Sotalol Hydrochloride 80 MG Tablet 40 MG PO (10:02)
[2021-08-01] MEDS: 0.9% Saline Lock 10 ML Syringe IV (10:03)
[2021-08-01] MEDS: Menthol/Lanolin/Calamine/Znox 113 GM Tube 1 APPLIC TOPICAL (10:03)
[2021-08-01] MEDS: Nystatin Ointment 1 APPLIC TOPICAL (10:04)
[2021-08-01] MEDS: Senna/Docusate Sodium 1 Tablet 2 TABLET PO (10:09)
--- NOTE | 2021-08-01 10:51 | CASEMGMT ---
Addendum entered by Nubia Torres 08/01/21 11:11: This RN CM back to room and pt states she would like [facility] instead of TCU. Danish HAMILTON aware, voices understanding. Zahida ANDRES CM Original Note: Per Dereje SILVA, pt is agreeable to placement in SNF and would like TCU. This RN CM to room and updated that there is only one bed available in TCU. Pt's only focus at this time is that she needs to use the bathroom and SAFETY INVESTIGATOR's aware and into room. CM to follow. Zahida ANDRES CM
[2021-08-01] MEDS: Albuterol 2.5 MG/3 ML VIAL.NEB. INHALATION (12:24)
[2021-08-01] MEDS: DiphenhydrAMINE 25 MG Capsule PO (12:59)
--- NOTE | 2021-08-01 14:15 | CASEMGMT ---
RN IAN said patient was agreeable to going to [facility]. SW called [facility] and they are not taking patient's right now. SW met with patient, introduced self and role at [facility]. SW let patient know that [facility] is not taking patients right now. SW provided patient with a list of SNF providers including quality and resource use data and consistent with the patient?s preferred geographic region, medical needs, and insurance network. SW highlighted the facilities that take her insurance in pink. Patient went through the list and said what she disliked about each of the facilities. Patient said she wants to go home. SW told her it is being recommended she go somewhere for short term rehab. Patient said she doesn't need therapy. She just needs a nurse to watch her O2 levels. SW told her home health will only be out a few times a week. SW explained that right now she needs more help than just a few times a week. Patient said she is going to call her son and talk with him. SW did leave the list with patient. Joslyn FATIMA
--- NOTE | 2021-08-01 14:23 | CASEMGMT ---
ALFONSO received a call from patient's daughter in law Henna. Henna asked if patient was being discharged today as patient keeps calling her son and telling him to come pick her up. ALFONSO told Henna that as of now there is no discharge order in the computer. ALFONSO told Henna patient was agreeable to going to [facility] for rehab and then ALFONSO told her [facility] is not taking admissions. Now patient wants to go home and not a fci. Henna will let patient' son know that he does not have to come chart picker patient as she does not have a discharge order in the computer yet. Joslyn Razo INSULATION WORKER KUSHAL
--- NOTE | 2021-08-01 14:31 | PN.RENAL_ITS ---
Subjective Subjective Following for BEREKET Resting quietly, no complaints. Objective Data Objective Data Vital Signs: Vital Signs Temp Pulse Resp BP Pulse Ox 98.2 F 71 24 H 143/64 H 99 08/01/21 10:00 08/01/21 12:25 08/01/21 12:25 08/01/21 10:00 08/01/21 10:00 Oxygen Flow Rate (L/min) 2 Oxygen Delivery Method Room Air Weight: 89 kg Body Mass Index (BMI) 31.8 Intake & Output: Intake and Output for Last 24 Hours 07/30/21 07/31/21 08/01/21 23:59 23:59 23:59 Intake Total 1999 / 1999 1450 / 1550 150 / 150 Output Total 120 / 120 Balance 1880 / 1880 1450 / 1550 150 / 150 Lab / Micro Data Result Diagrams: 08/01/21 06:03 08/01/21 06:13 Labs: Laboratory Results - last 24 hr 08/01/21 06:03: WBC 15.7 H, RBC 3.59 L, Hgb 11.2 L, Hct 33.4 L, MCV 93.0, MCH 31.2, MCHC 33.5 D, RDW Std Deviation 43.1, RDW Coeff of Jenna 12.6, Plt Count 329, MPV 8.8, Neut % (Auto) Not Reportable, Absolute Neuts (auto) 13.7 H, Absolute Lymphs (auto) 0.95, Total Counted 100, Neutrophils % (Manual) 53, Band Neutrophils % 2, Lymphocytes % (Manual) 6 L, Monocytes % (Manual) 7, Eosinophils % (Manual) 32 H, Polychromasia 1+, Ovalocytes RARE 08/01/21 06:13: Sodium 133 L, Potassium 4.1, Chloride 98, Carbon Dioxide 30.0, Anion Gap 5, BUN 56 H, Creatinine 1.49 H, Estim Creat Clear Calc 28.45, Est GFR (MDRD) Af Amer 44 L, Est GFR (MDRD) Non-Af 36 L, BUN/Creatinine Ratio 37.6 H, G lucose 149 H, Calcium 9.0, Magnesium 2.4 Micro: Microbiology 07/26/21 16:00 Nasal Secretion SARS-CoV-2 Antigen (Rapid) - Final Physical Exam Narrative Const: A&Ox3. Respiratory: Lung sounds clear anteriorly Cardio: S1-S2, rhythm rate regular Extremities: No pitting edema noted bilateral lower legs Assessment & Plan Assessment/Plan (1) BEREKET (acute kidney injury): PLAN: - Nonoliguric BEREKET possibly secondary to overdiuresis in setting of dyspnea rather than heart failure. Normal baseline creatinine. Creatinine 0.65 mg/dL on admission, peaked at 2.53 mg/dL on 07/30/2021. Today creatinine 1.49 mg/dL. Renal ultrasound did not show any hydronephrosis, normal ultrasound of kidneys and urinary bladder. Urine Na 9. Continue holding diuretics for now. Encouraged patient to try and increase oral intake. Overall renal function has improved. No acute indication for GRINDER OPERATOR SURFACE TOOL. (2) Hyponatremia: PLAN: Normal baseline sodium. Sodium 133, improved. Patient does complain of nausea and dry mouth but no other symptoms of hyponatremia at this time. No need for 3% saline, tolvaptan, at this time. (3) Acute and chronic respiratory failure with hypoxia: PLAN: - echo: EF of 55 to 60% with mild aortic insufficiency. lasix on hold (4) HTN (hypertension): PLAN: Bps have improved. Discharge planning in progress. We will arrange for patient to follow-up in our [place] office.
--- NOTE | 2021-08-01 14:57 | PCM.DC ---
Discharge Instructions Diet Discharge Diet: No restrictions Activity Discharge Activity: Return to Normal Activity Weight Bearing Status: Weight bearing as tolerated Dressing / Incision Call your doctor if you observe: Fever of 101 or Higher, Numbness or Tingling, Shortness of breath, Dizziness, Chest pain, Increased palpitations (irregular heartbeat) and Calf discomfort Follow Up Care Please Follow Up With: Primary care provider When: Within the next two weeks. Test Results: Test results from this visit will be discussed in further detail at your follow-up appointment, if applicable. Discharge Plan Admission Admit Date/Time: 07/26/21 23:28 Primary Reason for Your Visit: Shorntess of breath Attending Provider: Ric Alford Primary Care Provider: Jessica Aguero Consulting Providers: Reece Mariee Discharge Orders/Prescriptions Prescriptions: New cefdinir 300 mg capsule 300 mg PO BID Qty: 10 RF: 0 nystatin 100,000 unit/gram powder 1 applic topical TID Qty: 60 RF: 0 diphenhydramine HCl [Benadryl] 25 mg capsule 25 mg PO Q6H PRN (Reason: Hives) Qty: 30 RF: 0 Continued omeprazole 20 MG capsule 20 mg PO DAILY RF: 0 albuterol sulfate 1 PUFF inhaler 2 puff INHALATION Q4H PRN PRN (Reason: Asthma) RF: 0 zolpidem 12.5 MG tablet,ext release multiphase 6.25 mg PO QHS PRN PRN (Reason: Insomnia) RF: 0 calcium citrate-vitamin D3 1 EACH tablet 2 tab PO DAILY RF: 0 hydrocodone-acetaminophen 5-325 mg tablet 1 tab PO TID RF: 0 acetaminophen 650 mg Tablet Extended Release 1,300 mg PO DAILY PRN (Reason: Pain) RF: 0 Prolia 60 mg/mL Syringe 60 mg SUBCUT .[id number] RF: 0 Eliquis 5 mg tablet 5 mg PO BID RF: 0 lisinopril-hydrochlorothiazide 10-12.5 mg tablet 1 tab PO DAILY RF: 0 pravastatin 20 mg tablet 20 mg PO QHS RF: 0 diltiazem HCl [Cardizem CD] 120 mg capsule,extended release 24hr 120 mg PO BID RF: 0 L.acidoph,saliva-B.bif-S.therm [Acidophilus Probiotic Blend] 175 mg Capsule 1 cap PO DAILY RF: 0 anastrozole 1 mg tablet 1 mg PO DAILY 90 Days Qty: 90 RF: 3 sotalol 80 mg tablet 80 mg PO BID Qty: 60 RF: 11 Discontinued cephalexin [cephalexin] 500 MG capsule 500 mg PO Q6 RF: 0 Referrals / Follow Up: Jessica Aguero DO [Primary Care Provider] - Within 2 Weeks Disposition Disposition (needs filled in before D/C Order can be placed): Home, Self Care
--- NOTE | 2021-08-01 15:15 | CASEMGMT ---
Addendum entered by Nubia Torres 08/01/21 15:28: Per Avelina RN, she had to assist pt in bathroom and getting back into bed and once again informed pt/son(on phone) that SNF was recommended for pt. This RN CM back to room and pt is stating that she isn't going anywhere but home but is agreeable to [facility] and would like [facility] as she has had them in the past. Pt states her son-in-law is going to pick her up and 'will be around' to help if she needs anything. Order placed for SN, PT/OT, aide and call to Margot at [facility] with referral. Margot to call this RN CM back. CM to follow. Zahida ANDRES CM Original Note: Per Avelina, pt does not qualify for home oxygen and pt is speaking with son on phone regarding d/c plan. CM to follow. Zahida ANDRES CM
--- NOTE | 2021-08-01 15:25 | DS.PCM_ITS ---
Documented by User: Dereje SILVA 08/01/21 15:51 Providers Date of Admission: 07/26/21 Date of Discharge: 08/01/21 Primary Care Physician: Dr. Jessica Aguero, Consultations 07/30/21 11:30 Consult: Nephrology Routine Consulting Provider: Reece Mariee Reason for Consult: BEREKET EMERGENT Consult: No MD Notified: Yes Date Notified: 07/30/21 Time Notified: 11:30 Method of Notification: Answering Service Reason For Visit: BILATERAL PLEURAL EFFUSION Diagnosis Discharge Diagnosis (1) BEREKET (acute kidney injury): Status: Acute Code(s): N17.9 - Acute kidney failure, unspecified (2) Hyponatremia: Status: Acute Code(s): E87.1 - Hypo-osmolality and hyponatremia (3) Acute and chronic respiratory failure with hypoxia: Status: Chronic Code(s): J96.21 - Acute and chronic respiratory failure with hypoxia (4) HTN (hypertension): Status: Chronic Code(s): I10 - Essential (primary) hypertension Medications at Discharge Home Medications albuterol sulfate 2 puff INHALATION Q4H PRN PRN 06/16/13 omeprazole 20 mg PO DAILY 06/16/13 calcium citrate-vitamin D3 2 tab PO DAILY 10/24/18 zolpidem 6.25 mg PO QHS PRN PRN 03/24/19 Prolia 60 mg SUBCUT .[id number] 11/25/20 acetaminophen 1,300 mg PO DAILY PRN 11/25/20 hydrocodone-acetaminophen 1 tab PO TID 11/25/20 anastrozole 1 mg tablet 1 mg PO DAILY 90 Days #90 tab 01/04/21 Eliquis 5 mg PO BID 02/06/21 lisinopril-hydrochlorothiazide 1 tab PO DAILY 02/06/21 sotalol 80 mg tablet 80 mg PO BID #60 tab 02/27/21 pravastatin 20 mg tablet 20 mg PO QHS tab 04/28/21 L.acidoph,saliva-B.bif-S.therm [Acidophilus Probiotic Blend] 1 cap PO DAILY 07/27/21 diltiazem HCl [Cardizem CD] 120 mg PO BID 07/27/21 cefdinir 300 mg PO BID #10 cap 08/01/21 diphenhydramine HCl [Benadryl] 25 mg PO Q6H PRN #30 cap 08/01/21 nystatin 1 applic TOPICAL TID #60 g 08/01/21 Hospital Course Procedures 2-D Echocardiogram and Transthoracic echo Summary of Care Provided Minutes Spent on Discharge: 15 Hospital Course: Patient is a 75-year-old female who presented to the hospital on 07/26/2019 with a chief complaint of shortness of breath. Patient was admitted for evaluation and management of acute hypoxic respiratory failure secondary to CHF exacerbation and bilateral pleural effusions. Patient was placed on Lasix for diuresis and echocardiogram was obtained on 07/27/2021 demonstrated an EF of 55 to 60% and no significant change was noted from prior echocardiogram. During course of admission patient developed a acute kidney injury that was believed to be due to dehydration and or worsening hypotension. Nephrology consult was ordered, renal ultrasound was obtained to assess for hydronephrosis which was not appreciated. Nephrology believed that BEREKET was secondary to overly aggre ssive diuresis, patient was not found to be needing dialysis during admission. On day of discharge patient was satting 94% on room air at rest, and was satting 90% with ambulation on room air. Patient was not provided oxygen for home as she does not qualify. No changes were made to to patient's home CHF regimen as she was already on sotalol and lisinopril/hydrochlorothiazide. Did not initiate Lasix on discharge due to stable appearance of echocardiogram as well as observed hypotension throughout admission. Patient is to follow-up with cardiology within the next 2 weeks for appropriate outpatient follow-up. On discharge patient was given cefdinir for another 6 days due to presence of a U TI. Patient was also given nystatin powder to apply 3 times daily as needed to affected areas in the suprapubic abdominal fold as well as breast folds. Patient was also given diphenhydramine on discharge for diffuse maculopapular rash, unclear cause. Of note, attempted to get patient to go to SNF on discharge due to observed weakness and overall lack of ability to take care of self. Patient adamantly refused going to SNF, as well as participation in PT/OT eval. Patient seen by Dereje Horowitz PA-C, under the supervision of Dr. Alford. Time spent on patient care: 15 minutes. Physical Exam Narrative Patient is a 75-year-old female who is lying in bed, alert and orient x3. Patient reports improvement in her shortness of breath from admission. Denies development of any new symptoms overnight. Does not appear in acute distress. Const alert, oriented x3 and no apparent distress HEENT normocephalic, head/scalp atraumatic and hearing grossly normal bilaterally Eyes PERRL, EOMs intact bilaterally and conjunctivae normal Neck no lymphadenopathy, supple and no JVD Resp normal respiratory effort, no retractions, no use of accessory muscles and clear to auscultation bilaterally Cardio regular rate, regular rhythm, no murmurs and no JVD GI normal to inspection, nondistended, normoactive bowel sounds, soft to palpation and non-tender Extremity normal to inspection, full ROM and no clubbing, cyanosis or edema Skin Skin Narrative: Diffuse maculopapular rash apparent on the abdomen and back. Also, irritation present in the suprapubic abdominal folds as well as folds of the breast. Neuro CN's II-XII intact bilaterally Psych affect normal Weight / BMI Weight Weight: 196 lb 3.382 oz Body Mass Index (BMI) 31.8 ABG / Lab / Microbiology Data Result Diagrams: 08/01/21 06:03 08/01/21 06:13 Laboratory: Laboratory Results - last 24 hr 08/01/21 06:03: WBC 15.7 H, RBC 3.59 L, Hgb 11.2 L, Hct 33.4 L, MCV 93.0, MCH 31.2, MCHC 33.5 D, RDW Std Deviation 43.1, RDW Coeff of Jenna 12.6, Plt Count 329, MPV 8.8, Neut % (Auto) Not Reportable, Absolute Neuts (auto) 13.7 H, Absolute Lymphs (auto) 0.95, Total Counted 100, Neutrophils % (Manual) 53, Band Neutrophils % 2, Lymphocytes % (Manual) 6 L, Monocytes % (Manual) 7, Eosinophils % (Manual) 32 H, Polychromasia 1+, Ovalocytes RARE 08/01/21 06:13: Sodium 133 L, Potassium 4.1, Chloride 98, Carbon Dioxide 30.0, Anion Gap 5, BUN 56 H, Creatinine 1.49 H, Estim Creat Clear Calc 28.45, Est GFR (MDRD) Af Amer 44 L, Est GFR (MDRD) Non-Af 36 L, BUN/Creatinine Ratio 37.6 H, Glucose 149 H, Calcium 9.0, Magnesium 2.4 Microbiology: Microbiology 07/26/21 16:00 Nasal Secretion SARS-CoV-2 Antigen (Rapid) - Final D/C Instructions Discharge Diet: No restrictions Weight Bearing Status: Weight bearing as tolerated Call your doctor if you observe: Fever of 101 or Higher, Numbness or Tingling, Shortness of breath, Dizziness, Chest pain, Increased palpitations (irregular heartbeat) and Calf discomfort Please Follow Up With: Primary care provider When: Within the next two weeks. Meaningful Use Info Meaningful Use Diagnoses (Choose all that apply): CHF CHF MONTRELL/ARB ordered at discharge?: Yes Documented LVEF (%): 60 Discharge Plan Admission Admit Date/Time: 07/26/21 23:28 Primary Reason for Your Visit: Shorntess of breath Attending Provider: Ric Alford Primary Care Provider: Jessica Aguero Consulting Providers: Reece Mariee Discharge Orders/Prescriptions Prescriptions: New cefdinir 300 mg capsule 300 mg PO BID Qty: 10 RF: 0 nystatin 100,000 unit/gram powder 1 applic topical TID Qty: 60 RF: 0 diphenhydramine HCl [Benadryl] 25 mg capsule 25 mg PO Q6H PRN (Reason: Hives) Qty: 30 RF: 0 Continued omeprazole 20 MG capsule 20 mg PO DAILY RF: 0 albuterol sulfate 1 PUFF inhaler 2 puff INHALATION Q4H PRN PRN (Reason: Asthma) RF: 0 zolpidem 12.5 MG tablet,ext release multiphase 6.25 mg PO QHS PRN PRN (Reason: Insomnia) RF: 0 calcium citrate-vitamin D3 1 EACH tablet 2 tab PO DAILY RF: 0 hydrocodone-acetaminophen 5-325 mg tablet 1 tab PO TID RF: 0 acetaminophen 650 mg Tablet Extended Release 1,300 mg PO DAILY PRN (Reason: Pain) RF: 0 Prolia 60 mg/mL Syringe 60 mg SUBCUT .[id number] RF: 0 Eliquis 5 mg tablet 5 mg PO BID RF: 0 lisinopril-hydrochlorothiazide 10-12.5 mg tablet 1 tab PO DAILY RF: 0 pravastatin 20 mg tablet 20 mg PO QHS RF: 0 diltiazem HCl [Cardizem CD] 120 mg capsule,extended release 24hr 120 mg PO BID RF: 0 L.acidoph,saliva-B.bif-S.therm [Acidophilus Probiotic Blend] 175 mg Capsule 1 cap PO DAILY RF: 0 anastrozole 1 mg tablet 1 mg PO DAILY 90 Days Qty: 90 RF: 3 sotalol 80 mg tablet 80 mg PO BID Qty: 60 RF: 11 Discontinued cephalexin [cephalexin] 500 MG capsule 500 mg PO Q6 RF: 0 Referrals / Follow Up: Jessica Aguero DO [Primary Care Provider] - Within 2 Weeks Uziel Rick MD [STAFF PHYSICIAN] - Within 2 Weeks Disposition Disposition (needs filled in before D/C Order can be placed): Home, Self Care Documented by User: Dr. Ric Alford MD 08/01/21 16:02 Providers Date of Admission: 07/26/21 Reason For Visit: BILATERAL PLEURAL EFFUSION Medications at Discharge Home Medications albuterol sulfate 2 puff INHALATION Q4H PRN PRN 06/16/13 omeprazole 20 mg PO DAILY 06/16/13 calcium citrate-vitamin D3 2 tab PO DAILY 10/24/18 zolpidem 6.25 mg PO QHS PRN PRN 03/24/19 Prolia 60 mg SUBCUT .[id number] 11/25/20 acetaminophen 1,300 mg PO DAILY PRN 11/25/20 hydrocodone-acetaminophen 1 tab PO TID 11/25/20 anastrozole 1 mg tablet 1 mg PO DAILY 90 Days #90 tab 01/04/21 Eliquis 5 mg PO BID 02/06/21 lisinopril-hydrochlorothiazide 1 tab PO DAILY 02/06/21 sotalol 80 mg tablet 80 mg PO BID #60 tab 02/27/21 pravastatin 20 mg tablet 20 mg PO QHS tab 04/28/21 L.acidoph,saliva-B.bif-S.therm [Acidophilus Probiotic Blend] 1 cap PO DAILY 07/27/21 diltiazem HCl [Cardizem CD] 120 mg PO BID 07/27/21 cefdinir 300 mg PO BID #10 cap 08/01/21 diphenhydramine HCl [Benadryl] 25 mg PO Q6H PRN #30 cap 08/01/21 nystatin 1 applic TOPICAL TID #60 g 08/01/21 Hospital Course Operations None and - Summary of Care Provided Minutes Spent on Discharge: 40 Hospital Course: This patient was seen in conjunction with Dereje Horowitz PA-C. I have independently interviewed and examined the patient and reviewed pertinent historical, laboratory, and other data. Please refer to Dereje Horowitz PA-C's note for details of this patient's presentation, findings, and recommendations. I have reviewed Dereje Horowitz PA-C's note and concur with documented findings. In brief, This patient was seen in conjunction with Dereje Horowitz PA-C. I have independently interviewed and examined the patient and reviewed pertinent historical, laboratory, and other data. Please refer to Dereje Horowitz PA-C's note for details of this patient's presentation, findings, and recommendations. I have reviewed Dereje Horowitz PA-C's note and concur with documented findings. In brief, Patient is a 75-year-old lady admitted with shortness of breath. An assessment of acute hypoxic respiratory failure secondary to CHF exacerbation made admitted to a monitored bed for subsequent management. Patient was also found to have worsening azotemia following initiation of diuretics which had to be discontinued Physical Examination: GENERAL: cooperative HEENT: Atraumatic; EYES; Anicteric, Normal Conjunctiva NECK; supple, normal thyroid, RESPIRATORY: Diminished to auscultation CARDIOVASCULAR: Regular S1 S2, GI: soft, normoactive bowel sounds, : No Renal angle tenderness; EXTREMITIES: edema, no clubbing, MUSCULOSKELETAL: no muscle waisting NEURO: Awake; no lateralizing signs. SKIN: No Rash PSYCH; Flat affect 1. Acute hypoxic respiratory failure Secondary to acute on chronic congestive heart failure. Patient was initially managed with Lasix however held in view of worsening kidney function 2. Acute on chronic congestive heart failure with preserved ejection fraction ? Echo obtained demonstrated EF of 55 to 60% with mild aortic insufficiency. Managed initially with Lasix held in view of worsening kidney function 3. Bilateral pleural effusion plan was for patient to have undergoing ultrasound-guided thoracocentesis pearce león not enough fluid was available to be tapped 4. Acute cystitis ? Started on Rocephin cultures sent 5. Acute kidney injury Secondary to combination of hypotension and use of diuretics. Baseline creatinine 0.7 creatinine peaked at 2.53 6. Essential hypertension - patient antihypertensives placed on hold in view of relative hypotension 7. Paroxysmal atrial fibrillation, Patient in sinus rhythm. On sotalol for rate control and systemic anticoagulation with Eliquis 8. Class I obesity with BMI of 32.6 ? Weight loss advised 9. Intertrigo ? Management nystatin powder 10. Physical deconditioning - Requested for PT OT eval and social services coordinator to assist with discharge planning 11. Dyslipidemia -Patient is on statin therapy, continued at home dose 12. 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 DVT prophylaxis ? Eliquis total time spent on entire discharge process 40 minutes 25 of which was spent by me going over patient discharge instruction discharge and follow-up plans and discussion with nursing staff ABG / Lab / Microbiology Data Result Diagrams: 08/01/21 06:03 08/01/21 06:13 Discharge Plan Admission Admit Date/Time: 07/26/21 23:28 Primary Reason for Your Visit: Shorntess of breath Attending Provider: Ric Alford Primary Care Provider: Jessica Aguero Consulting Providers: Reece Mariee Discharge Orders/Prescriptions Prescriptions: New cefdinir 300 mg capsule 300 mg PO BID Qty: 10 RF: 0 nystatin 100,000 unit/gram powder 1 applic topical TID Qty: 60 RF: 0 diphenhydramine HCl [Benadryl] 25 mg capsule 25 mg PO Q6H PRN (Reason: Hives) Qty: 30 RF: 0 Continued omeprazole 20 MG capsule 20 mg PO DAILY RF: 0 albuterol sulfate 1 PUFF inhaler 2 puff INHALATION Q4H PRN PRN (Reason: Asthma) RF: 0 zolpidem 12.5 MG tablet,ext release multiphase 6.25 mg PO QHS PRN PRN (Reason: Insomnia) RF: 0 calcium citrate-vitamin D3 1 EACH tablet 2 tab PO DAILY RF: 0 hydrocodone-acetaminophen 5-325 mg tablet 1 tab PO TID RF: 0 acetaminophen 650 mg Tablet Extended Release 1,300 mg PO DAILY PRN (Reason: Pain) RF: 0 Prolia 60 mg/mL Syringe 60 mg SUBCUT .[id number] RF: 0 Eliquis 5 mg tablet 5 mg PO BID RF: 0 lisinopril-hydrochlorothiazide 10-12.5 mg tablet 1 tab PO DAILY RF: 0 pravastatin 20 mg tablet 20 mg PO QHS RF: 0 diltiazem HCl [Cardizem CD] 120 mg capsule,extended release 24hr 120 mg PO BID RF: 0 L.acidoph,saliva-B.bif-S.therm [Acidophilus Probiotic Blend] 175 mg Capsule 1 cap PO DAILY RF: 0 anastrozole 1 mg tablet 1 mg PO DAILY 90 Days Qty: 90 RF: 3 sotalol 80 mg tablet 80 mg PO BID Qty: 60 RF: 11 Discontinued cephalexin [cephalexin] 500 MG capsule 500 mg PO Q6 RF: 0 Referrals / Follow Up: Jessica Aguero DO [Primary Care Provider] - Within 2 Weeks Uziel Rick MD [STAFF PHYSICIAN] - Within 2 Weeks Disposition Disposition (needs filled in before D/C Order can be placed): Home, Self Care Charges/Coding Visit Charges Inpatient E&M: 31729 Disch Hosp Hospital Course Consultations Consultations: Consultations 07/30/21 11:30 Consult: Nephrology Routine Consulting Provider: Reece Mariee Reason for Consult: BEREKET EMERGENT Consult: No Notified: Yes Date Notified: 07/30/21 Time Notified: 11:30 Method of Notification: Answering Service Operations None and -
[2021-08-02 13:12] LABS: Pathologist Review Reviewed
== END 2021-08-01 17:49 | disposition home or self-care (01) | DRG 291 ==
LOC: ED 22:51 → PCU 07-27 07:11
PROVIDERS: Internal Medicine; Internal Medicine Nephrology; Radiology Diagnostic Radiology; Admitting Provider Hospitalist; Emergency Provider Emergency Medicine; PCP Internal Medicine; Visit Provider Internal Medicine
DX: I11.0 Hypertensive heart disease with heart failure (principal); J96.21 Acute and chronic respiratory failure with hypoxia; I50.33 Acute on chronic diastolic (congestive) heart failure; N17.9 Acute kidney failure, unspecified; E87.1 Hypo-osmolality and hyponatremia; N30.00 Acute cystitis without hematuria; N39.0 Urinary tract infection, site not specified; I95.9 Hypotension, unspecified; Z79.01 Long term (current) use of anticoagulants; J44.9 Chronic obstructive pulmonary disease, unspecified; I48.0 Paroxysmal atrial fibrillation; E66.01 Morbid (severe) obesity due to excess calories; E78.5 Hyperlipidemia, unspecified; I25.10 Atherosclerotic heart disease of native coronary artery without angina pectoris; E88.09 Other disorders of plasma-protein metabolism, not elsewhere classified; I35.1 Nonrheumatic aortic (valve) insufficiency; K21.9 Gastro-esophageal reflux disease without esophagitis; G47.33 Obstructive sleep apnea (adult) (pediatric); M19.90 Unspecified osteoarthritis, unspecified site; L30.4 Erythema intertrigo; Z79.811 Long term (current) use of aromatase inhibitors; Z68.32 Body mass index [BMI] 32.0-32.9, adult; R73.9 Hyperglycemia, unspecified; Z90.11 Acquired absence of right breast and nipple; Z20.822 Contact with and (suspected) exposure to COVID-19; G89.29 Other chronic pain; Z86.718 Personal history of other venous thrombosis and embolism; Z86.711 Personal history of pulmonary embolism; Z85.3 Personal history of malignant neoplasm of breast
CPT/HCPCS: 36415; 71045; 76604; 76770; 80048; 80053; 80069; 81001; 82570; 83615; 83735; 83880; 84156; 84300; 84484; 84540; 85025; 85610; 85730; 87426; 93005; 93306; 94640; 97162; 97166; 97530; 97802; 99285; J7040; Q9957; A4216; C8929; J1940; J2405; J3490

== ENCOUNTER 2021-08-04 16:16 | Inpatient (IN) | payer MEDICARE, MEDICAID, SELFPAY ==
[2021-08-04] VITALS (9 sets, daily range): BP systolic 115–152; BP diastolic 57–101; PULSE 70–112; RESP 18–26; TEMP 36.5–37.3; O2SAT 90–99; BMI 32.8; BMI 31.2
--- NOTE | 2021-08-04 17:00 | EKG12_ITS ---
Test Reason : SOB Blood Pressure : / mmHG Vent. Rate : 092 BPM Atrial Rate : 092 BPM P-R Int : 000 ms QRS Dur : 078 ms QT Int : 282 ms P-R-T Axes : 000 012 -10 degrees QTc Int : 348 ms Undetermined rhythm :Consider Atrial Fibrillation Low voltage QRS Incomplete right bundle branch block Nonspecific T wave abnormality Abnormal ECG Confirmed by AYANA GONZALEZ, JORGE ([id number]), writer editor ALEXEY BILLINGS ([id number]) on 08/07/2021 11:14:20 AM Referred By: BRANDO Confirmed By:JORGE PIÑA MD
--- NOTE | 2021-08-04 17:20 | RAD_ITS ---
STUDY: XR Chest 1 View 08/04/2021 5:15 PM REASON FOR EXAM: Female, 75 years old. CHEST PAIN sob COMPARISON: 7 TECHNIQUE: XR Chest 1 View FINDINGS: Bilateral pleural effusions. Enlarged heart size. Normal mediastinum. Normal kwaku. Prominent appearing increased interstitial lung markings. Normal visualized pulmonary arteries. There is atherosclerotic calcification of the aortic arch with tortuosity. There are diffuse degenerative changes of the visualized thoracic spine. There is degenerative osteoarthritis of the bilateral shoulders. There is no demonstrated abnormality of the visualized soft tissue structures of the upper abdomen. RAD/Chest 1 View (Portable) IMPRESSION: Bilateral pleural effusions. Electronically Signed: Benjamin Hsu MD at 17:36 EST , Service support ,
[2021-08-04 17:32] LABS: Absolute Lymphocyte Count 1.43 X10^3/uL (0.83-4.51); Absolute Neutrophil Count 8.1 X10^3/uL (2.0-7.7); Basophil# 0.04 X10^3/uL; Basophil% 0.3 % (0-1); Eosinophils% 23.2 % (0-5); Hematocrit 33.1 % (37-47); Hemoglobin 11.4 g/dL (12.0-15.0); Lymphocyte # 1.43 X10^3/ul (0.83-4.51); Mean Corp Hgb Conc 34.4 g/dL (32-36); Mean Corpuscular Hgb 31.1 pg (27.0-32.0); Mean Corpuscular Volume 90.4 fL (81-99); Mean Platelet Vol. 8.7 fl (6.2-12.0); Monocyte# 1.19 X10^3/uL; Monocyte% 8.4 % (0-10); NRBC Flagged by Analyzer 0 % (0-5); Neutrophil # 8.05 X10^3/uL (2.7-7.7); Neutrophil % 56.4 % (47-70); POSITIVE DIFFERENTIAL YES; Platelet Count 333 K/mm3 (150-450); RBC Distribution Width CV 12.7 % (11.6-14.6); RBC Distribution Width SD 42.1 fl (35.1-43.9); Red Blood Count 3.66 M/mm3 (4.2-5.4); White Blood Count 14.3 K/mm3 (4.4-11.0)
[2021-08-04 17:39] LABS: Differential Indicated SCAN CRITERIA MET
--- NOTE | 2021-08-04 17:41 | EDS_ITS ---
HPI History of Present Illness Chief Complaint: Shortness of Breath Informant: patient Narrative Narrative: Patient is a 75-year-old female with extensive medical history including atrial fibrillation, chronic respiratory failure (not on home oxygen), hypertension, breast cancer and recent diagnosis for acute kidney failure and hyponatremia presented with generalized weakness and rapid heart rate at home. Patient was discharged from the hospital on 08/01/2021. Since has been home she notes has been very weak. She notes her son-in-law who drove her home to the airport and had recently tested positive for COVID. She is unsure if she contracted it. She continues to feel short of breath and feels like she has been smothered but states that has been going on since she was in the hospital. She normally cannot lay flat because of her neck and back so does not know if she is short of breath when she lays flat. She has a cough its been productive of significant amount of sputum per her son. She notes she has had intermittent substernal chest pain. Today her heart rate between 120 and 130 per the home health aide still EMS was called. Per EMS patient was 88 to 89%'s but came up with oxygen. Patient notes she has not been eating or drinking as much at home. She has no other complaints at this time. She uses a Rollator to get around her house. [facility] Medical History Atherosclerotic heart disease of [place] coronary artery without angina pectoris Atrial fibrillation Atrial fibrillation CAD (coronary artery disease) Chronic pain COPD (chronic obstructive pulmonary disease) Essential hypertension GERD (gastroesophageal reflux disease) Hx of deep vein thrombophlebitis of lower extremity Hyperlipidemia Insomnia Iron deficiency anemia due to chronic blood loss Lumbar spondylosis Obesity Obstructive sleep apnea Osteoarthritis Osteoporosis Paroxysmal atrial fibrillation Paroxysmal atrial tachycardia Personal history of pulmonary embolism port placement PORT REMOVAL Pure hypercholesterolemia PVD (peripheral vascular disease) Rectal prolapse Thyroid cancer Home Medications albuterol sulfate 2 puff INHALATION Q4H PRN PRN 06/16/13 [History Last Taken 10/01/17 08:00] omeprazole 20 mg PO DAILY 06/16/13 [History Last Taken 07/11/21] calcium citrate-vitamin D3 2 tab PO DAILY 10/24/18 [History Last Taken 07/11/21] zolpidem 6.25 mg PO QHS PRN PRN 03/24/19 [History Last Taken 07/10/21] Prolia 60 mg SUBCUT .[id number] 11/25/20 [History Last Taken 05/22/21] acetaminophen 1,300 mg PO DAILY PRN 11/25/20 [History Last Taken 07/11/21] hydrocodone-acetaminophen 1 tab PO TID 11/25/20 [History Last Taken 07/10/21] anastrozole 1 mg tablet 1 mg PO DAILY 90 Days #90 tab 01/04/21 [Rx Last Taken 07/11/21] Eliquis 5 mg PO BID 02/06/21 [History Last Taken 07/11/21] lisinopril-hydrochlorothiazide 1 tab PO DAILY 02/06/21 [History Last Taken 07/09/21] sotalol 80 mg tablet 80 mg PO BID #60 tab 02/27/21 [Rx Last Taken 07/11/21] pravastatin 20 mg tablet 20 mg PO QHS tab 04/28/21 [History Last Taken 07/10/21] L.acidoph,saliva-B.bif-S.therm [Acidophilus Probiotic Blend] 1 cap PO DAILY 07/27/21 [History Last Taken Unknown] diltiazem HCl [Cardizem CD] 120 mg PO BID 07/27/21 [History Last Taken Unknown] cefdinir 300 mg PO BID #10 cap 08/01/21 [Rx Last Taken Unknown] diphenhydramine HCl [Benadryl] 25 mg PO Q6H PRN #30 cap 08/01/21 [Rx Last Taken Unknown] nystatin 1 applic TOPICAL TID #60 g 08/01/21 [Rx Last Taken Unknown] Allergy/AdvReac Type Severity Reaction Status Date / Time niacin Allergy Intermediate I DON'T Verified 08/04/21 16:18 REMEMBER, I CAN'T TAKE IT bee stings Allergy Swelling Uncoded 08/04/21 16:18 Family History Brother Diabetes Heart disease Sister Breast cancer Mother Cancer brain and bone mets Aunt Breast cancer Grandmother Cancer Surgical History History of appendectomy History of cholecystectomy History of incisional hernia repair Hx of mastectomy S/P appendectomy S/P carpal tunnel release S/P cataract extraction S/P hysterectomy S/P lumbar discectomy S/P partial thyroidectomy S/P revision of total knee S/P right breast biopsy S/P total knee replacement Social History household members: none Smoking Status: Never smoker alcohol intake: never substance use type: does not use caffeine: No ROS ROS ED Constitutional Constitutional ED: Denies chills or fever(s) Eyes Eyes: Denies change in vision ENT ENT ED: Denies rhinorrhea or sore throat Cardiovascular Cardiovascular: Reports chest pain and racing heartbeat; Denies palpitations Respiratory/Chest Respiratory/Chest: Reports cough, dyspnea, dyspnea on exertion and sputum Gastrointestinal Gastrointestinal: Denies abdominal pain, nausea or vomiting Genitourinary Genitourinary ED: Denies dysuria Musculoskeletal Musculoskeletal: Denies arthralgias or myalgias Integumentary Denies rash Neurologic Neurologic: Reports weakness; Denies headache(s) or paresthesias Psychiatric Psychiatric: Denies depression EXAM Physical Exam Const Vital Signs: 08/04/21 16:19 08/04/21 16:24 08/04/21 16:25 Temperature 97.7 F L Temperature Source Temporal Pulse Rate 84 76 Respiratory Rate 22 H 22 H Respiratory Effort Short of Breath Respiratory Depth Normal Respiratory Pattern Normal Blood Pressure 136/74 H Blood Pressure Mean 94 Pulse Ox 91 90 Oxygen Delivery Method Room Air Room Air Nasal Cannula Oxygen Flow Rate (L/min) 2 08/04/21 18:04 Temperature Temperature Source Pulse Rate 96 Respiratory Rate 26 H Respiratory Effort Respiratory Depth Respiratory Pattern Blood Pressure 124/75 H Blood Pressure Mean 91 Pulse Ox 96 Oxygen Delivery Method Nasal Cannula Oxygen Flow Rate (L/min) 2 Positive well nourished and well developed General Appearance ED: well developed HEENT Reports dry mucous membranes Negative for tenderness Mouth ED: Yes dry mucous membranes Mouth: dry mucous membranes Eyes PERRL and EOMs intact bilaterally Neck supple and no JVD Chest Wall inspection of chest normal Resp normal respiratory effort Auscultation: diminished lung sounds bilateral lower; Negative for rhonchi or wheezes Cardio regular rate, regular rhythm and no murmurs GI normal to inspection, nondistended, normoactive bowel sounds and non-tender Palpation: soft Back/Spine no CVA tenderness Extremity normal to inspection General Extremety ED: Negative for edema or tenderness General Extremity: Negative for edema Neuro oriented x3 Sensorium / Orientation: alert Motor Exam: general weakness Psych mental status grossly normal Skin no rashes or lesions noted MDM MDM MDM Narrative Medical decision making narrative: Patient is evaluated for generalized weakness and increased shortness of breath. Patient was just recently discharged from the hospital for what looks like initially a CHF exacerbation that turned into Azotemia and BEREKET. Patient states has been very weak at home. She inserted 2 sutures that were thought to. Patient is hypoxic with ambulation. She does have a leukocytosis however this is actually slightly improved from her prior admission. There is no obvious pneumonia or other infection on work-up. High since he troponin is normal and she does not have any acute EKG changes. Chest x-ray shows continued bilateral pleural effusions. I suspect as patient's diuretics have been held due to her renal insufficiency she is now fluid overloaded again. Patient is given 1 dose of 40 mg IV Lasix and will be admitted for fluid management and her acute hypoxia. COVID test is negative. Patient has been compliant with her Eliquis I do not suspect a PE at this time. Lab Data Attestation: I reviewed the patient's lab results. Labs: Laboratory Results - last 24 hr 08/04/21 08/04/21 08/04/21 17:17 17:17 17:17 WBC 14.3 H RBC 3.66 L Hgb 11.4 L Hct 33.1 L MCV 90.4 MCH 31.1 MCHC 34.4 RDW Std Deviation 42.1 RDW Coeff of Jenna 12.7 Plt Count 333 MPV 8.7 Immature Gran % (Auto) 1.700 H Neut % (Auto) 56.4 Lymph % (Auto) 10.0 L Jones % (Auto) 8.4 Eos % (Auto) 23.2 H Baso % (Auto) 0.3 Absolute Neuts (auto) 8.1 H Absolute Lymphs (auto) 1.43 Nucleated RBC % 0 Differential Comment SCANNED Diff Path Review May foll Sodium 139 Potassium 3.7 Chloride 101 Carbon Dioxide 35.0 H Anion Gap 3 L BUN 25 H Creatinine 0.84 Estim Creat Clear Calc 50.47 Est GFR (MDRD) Af Amer 85 Est GFR (MDRD) Non-Af 70 BUN/Creatinine Ratio 29.9 H Glucose 125 H Calcium 10.5 H Magnesium Troponin I High Sens 7 B-Natriuretic Peptide 295.3 H Urine Color Urine Clarity Urine pH Ur Specific [place] Urine Protein Urine Glucose (UA) Urine Ketones Urine Occult Blood Urine Nitrite Urine Bilirubin Urine Urobilinogen Ur Leukocyte Esterase Urine RBC Urine WBC Ur Squamous Epith Cells Urine Bacteria Urine Mucus 08/04/21 08/04/21 17:17 18:05 WBC RBC Hgb Hct MCV MCH MCHC RDW Std Deviation RDW Coeff of Jenna Plt Count MPV Immature Gran % (Auto) Neut % (Auto) Lymph % (Auto) Jones % (Auto) Eos % (Auto) Baso % (Auto) Absolute Neuts (auto) Absolute Lymphs (auto) Nucleated RBC % Differential Comment Diff Path Review Sodium Potassium Chloride Carbon Dioxide Anion Gap BUN Creatinine Estim Creat Clear Calc Est GFR (MDRD) Af Amer Est GFR (MDRD) Non-Af BUN/Creatinine Ratio Glucose Calcium Magnesium 1.7 Troponin I High Sens B-Natriuretic Peptide Urine Color Yellow Urine Clarity Clear Urine pH 5.0 Ur Specific [place] 1.020 Urine Protein 15 H Urine Glucose (UA) Normal Urine Ketones 5 H Urine Occult Blood Negative Urine Nitrite Negative Urine Bilirubin Negative Urine Urobilinogen Normal Ur Leukocyte Esterase 25 H Urine RBC 0 SEEN Urine WBC 0-5 SEEN Ur Squamous Epith Cells 0-5 SEEN Urine Bacteria 0 SEEN Urine Mucus 0 SEEN Radiography Chest X-Ray - ED: 1 View, Read by ED Physician, Read by Radiologist, Right Effusion and Left Effusion Diagnostic Testing: Clinical Impression(s) from Imaging Studies Chest X-Ray 08/04/21 17:20 IMPRESSION: Bilateral pleural effusions. Electronically Signed: Benjamin Hsu MD at 17:36 EST , Service support , Rhythm Strip Rhythm Strip: A-fib Rate: 92 EKG Initial EKG: Attestation: I personally reviewed and interpreted this EKG as follows: Interpretation: Atrial Fibrillation Comments: Atrial fibrillation at a rate of 92 Normal axis Normal intervals Nonspecific T wave abnormalities No significant change compared to prior EKG however there is lower amplitude Discharge Plan Dx/Rx/DC Orders Clinical Impression: CHF exacerbation, Acute and chronic respiratory failure with hypoxia Disposition Disposition: Acute Care Hospital [facility] Discharge Date/Time: 08/04/21 19:35
[2021-08-04 17:45] LABS: Anion Gap 3 (5-15); BUN 25 mg/dL (7-18); BUN/Creat Ratio 29.9 RATIO (10-20); Calcium,Total 10.5 mg/dL (8.5-10.1); Chloride 101 mmol/L (98-107); Creatinine, Serum 0.84 mg/dL (0.55-1.02); EST Glomerular Filtration Rate 70 mL/min (>60); Est Glom Filt Rate - Afr Amer 85 mL/min (>60); Estimated Creatinine Clearance 50.47 ml/min; Glucose 125 mg/dL (74-106); Potassium 3.7 mmol/L (3.5-5.1); Sodium Level 139 mmol/L (136-145); Troponin-I HS 7 pg/mL (3.0-54.0)
[2021-08-04 18:11] LABS: BNP,B-Type NATRIURETIC PEPTIDE 295.3 pg/mL (0-100)
[2021-08-04 18:12] LABS: Bacteria 0 SEEN /hpf (None Seen); Mucous, Urine 0 SEEN /hpf (<or=2+); Red Blood Cells-Urine 0 SEEN /hpf (0-5)
[2021-08-04 18:13] LABS: Differential Comment SCANNED
[2021-08-04 18:14] LABS: Color, Urine Yellow (Yellow); Glucose, Dipstick Normal (Normal); Ketone-Dipstick 5 mg/dl (Negative); Leukocyte Esterase-Dipstick 25 /ul (Negative); Nitrite-Dipstick Negative (Negative); Occult Blood-Urine Negative /ul (Negative); Protein-Dipstick 15 mg/dl (Negative); Urine Bilirubin Dipstick Negative (Negative); Urine Clarity Clear (Clear); Urine Urobilinogen Normal (Normal)
[2021-08-04 18:20] LABS: Squamous Epithelial Cells - UA 0-5 SEEN /hpf (5-10); White Blood Cells 0-5 SEEN /hpf (0-5)
--- NOTE | 2021-08-04 18:49 | PCM.HP.STD ---
HPI - General General Date of Admission: 08/04/21 Date of Service: 08/04/21 Chief Complaint: Dyspnea, tachycardia per home health RN HPI Narrative The patient is a 75 y/o F w/ PMHx: Chronic anemia/Fe deficiency anemia, PAF, CAD, COPD/Asthma, Chronic pain syndrome, HTN, HLD, KWABENA, GERD, Hx PE/DVT, Hx Thyroid CA s/p partial thyroidectomy, Hx Breast CA s/p mastectomy, recently admitted 07/26/21-08/01/21 with acute on chronic respiratory failure with hypoxia secondary to Diastolic CHF exacerbation with BL effusions eventually developing BEREKET, hyponatremia/hypo-osmolar secondary to diuresis discharged off diuretics with also diagnosis UTI placed on cefdinir who now re-presents to the [facility] ED on 08/04/20 with recurrent dyspnea and appearance of volume overload with home RN evaluation with concern for recurrent exacerbation given no diuretic therapy and tachycardia prompting evaluation with patient complaint of recent increased edema, orthopnea. In the ED included T97.7, heart rate 84, BP 136/74, respiratory rate 22, initially 90% on room air with desaturation to 87% with ambulation with improvement to 96% on 2 L nasal cannula, CBC with WC 14.3, hemoglobin 11.4, platelet 333 with left shift, BMP with At 35, BUN/creatinine 25/0.84, glucose 125, troponin 7, BNP 295.3, chest x-ray with prominent appearing increased interstitial lung markings with bilateral pleural effusions, EKG with rate controlled suspected atrial fibrillation with no acute evidence of ischemia, UA with no recurrent suggestion of urinary tract infection currently on antibiotic therapy, rapid COVID antigen negative. In the ED patient ministered Lasix 40 mg IV x1. [facility] Medical History Atherosclerotic heart disease of [place] coronary artery without angina pectoris Atrial fibrillation Atrial fibrillation CAD (coronary artery disease) Chronic pain COPD (chronic obstructive pulmonary disease) Essential hypertension GERD (gastroesophageal reflux disease) Hx of deep vein thrombophlebitis of lower extremity Hyperlipidemia Insomnia Iron deficiency anemia due to chronic blood loss Lumbar spondylosis Obesity Obstructive sleep apnea Osteoarthritis Osteoporosis Paroxysmal atrial fibrillation Paroxysmal atrial tachycardia Personal history of pulmonary embolism port placement PORT REMOVAL Pure hypercholesterolemia PVD (peripheral vascular disease) Rectal prolapse Thyroid cancer Home Medications albuterol sulfate 2 puff INHALATION Q4H PRN PRN 06/16/13 [History Last Taken 10/01/17 08:00] omeprazole 20 mg PO DAILY 06/16/13 [History Last Taken 07/11/21] calcium citrate-vitamin D3 2 tab PO DAILY 10/24/18 [History Last Taken 07/11/21] zolpidem 6.25 mg PO QHS PRN PRN 03/24/19 [History Last Taken 07/10/21] Prolia 60 mg SUBCUT .[id number] 11/25/20 [History Last Taken 05/22/21] acetaminophen 1,300 mg PO DAILY PRN 11/25/20 [History Last Taken 07/11/21] hydrocodone-acetaminophen 1 tab PO TID 11/25/20 [History Last Taken 07/10/21] anastrozole 1 mg tablet 1 mg PO DAILY 90 Days #90 tab 01/04/21 [Rx Last Taken 07/11/21] Eliquis 5 mg PO BID 02/06/21 [History Last Taken 07/11/21] lisinopril-hydrochlorothiazide 1 tab PO DAILY 02/06/21 [History Last Taken 07/09/21] sotalol 80 mg tablet 80 mg PO BID #60 tab 02/27/21 [Rx Last Taken 07/11/21] pravastatin 20 mg tablet 20 mg PO QHS tab 04/28/21 [History Last Taken 07/10/21] L.acidoph,saliva-B.bif-S.therm [Acidophilus Probiotic Blend] 1 cap PO DAILY 07/27/21 [History Last Taken Unknown] diltiazem HCl [Cardizem CD] 120 mg PO BID 07/27/21 [History Last Taken Unknown] cefdinir 300 mg PO BID #10 cap 08/01/21 [Rx Last Taken Unknown] diphenhydramine HCl [Benadryl] 25 mg PO Q6H PRN #30 cap 08/01/21 [Rx Last Taken Unknown] nystatin 1 applic TOPICAL TID #60 g 08/01/21 [Rx Last Taken Unknown] Allergy/AdvReac Type Severity Reaction Status Date / Time niacin Allergy Intermediate I DON'T Verified 08/04/21 16:18 REMEMBER, I CAN'T TAKE IT bee stings Allergy Swelling Uncoded 08/04/21 16:18 Family History Brother Diabetes Heart disease Sister Breast cancer Mother Cancer brain and bone mets Aunt Breast cancer Grandmother Cancer Surgical History History of appendectomy History of cholecystectomy History of incisional hernia repair Hx of mastectomy S/P appendectomy S/P carpal tunnel release S/P cataract extraction S/P hysterectomy S/P lumbar discectomy S/P partial thyroidectomy S/P revision of total knee S/P right breast biopsy S/P total knee replacement Social History household members: none Smoking Status: Never smoker alcohol intake: never substance use type: does not use caffeine: No ROS ROS Narrative Admission Review of Systems: CONSTITUTIONAL: No weight loss, fever, chills, + weakness or fatigue. HEENT: Eyes: No visual loss, blurred vision, double vision or yellow sclerae. Ears, Nose, Throat: No hearing loss, sneezing, congestion, runny nose or sore throat. SKIN: No rash or itching, lesions, wounds. CARDIOVASCULAR: + Orthopnea, edema. No chest pain, chest pressure or chest discomfort, palpitations, syncopal events. RESPIRATORY: + shortness of breath, cough, No sputum, wheezing, hemoptysis. GASTROINTESTINAL: No anorexia, nausea, vomiting or diarrhea, abdominal pain, melena, BRBPR. GENITOURINARY: No dysuria, frequency, urgency or retention. NEUROLOGICAL: No headache, dizziness, syncope, paralysis, ataxia, numbness or tingling in the extremities, focal weakness, change in bowel or bladder control, seizure. MUSCULOSKELETAL: + muscle, back pain, joint pain or stiffness. HEMATOLOGIC: + anemia, bleeding or bruising. LYMPHATICS: No enlarged nodes. No history of splenectomy. PSYCHIATRIC: + history of depression or anxiety. ENDOCRINOLOGIC: No reports of sweating, cold or heat intolerance. No polyuria or polydipsia. ALLERGIES: + history of asthma, hives, eczema or rhinitis. Vital Signs Vital Signs Vital Signs: 08/04/21 16:19 08/04/21 16:24 08/04/21 16:25 Temperature 97.7 F L Temperature Source Temporal Pulse Rate 84 76 Respiratory Rate 22 H 22 H Respiratory Effort Short of Breath Respiratory Depth Normal Respiratory Pattern Normal Blood Pressure 136/74 H Blood Pressure Mean 94 Pulse Ox 91 90 Oxygen Delivery Method Room Air Room Air Nasal Cannula Oxygen Flow Rate (L/min) 2 08/04/21 18:04 Temperature Temperature Source Pulse Rate 96 Respiratory Rate 26 H Respiratory Effort Respiratory Depth Respiratory Pattern Blood Pressure 124/75 H Blood Pressure Mean 91 Pulse Ox 96 Oxygen Delivery Method Nasal Cannula Oxygen Flow Rate (L/min) 2 Weight Weight: 197 lb 8.547 oz Body Mass Index (BMI) 32.8 Physical Exam Narrative Physical Examination: General: Awake, alert, oriented x 3 and cooperative, seated upright in ED bed, fatigued. Skin: Normal color, normal turgor, no icterus, no cyanosis except occasional staged ecchymoses. HEENT: AT/NC, EOMI, PERRLA, MMM, no carotid bruits, + JVD noted. Lungs: Diminished, greater bases, mild rales, no rhonchi or wheezing, no evidence of marked distress but mildly increased respiratory rate. Heart: Irregular; no gallop, rub audible. Abdomen: Soft, obese, NTTP, ND, distant normal BS, no obvious evidence of HSM. Extremities: No cyanosis, no clubbing, mild bilateral pedal to distal bee edema. Neurological: Patient awake, alert, oriented as noted, cognitive function intact; pupils equally reactive to light and accommodation, cranial nerves II-XII grossly normal, moving all 4 extremities, no focal deficits, strength severely globally decreased secondary to acute presentation. Psychiatric: Affect appears fatigued otherwise normal, no acute evidence of depressive or anxiety feelings. Results Lab / Micro Data Result Diagrams: 08/04/21 17:17 08/04/21 17:17 Labs: Laboratory Results - last 24 hr 08/04/21 17:17: WBC 14.3 H, RBC 3.66 L, Hgb 11.4 L, Hct 33.1 L, MCV 90.4, MCH 31.1, MCHC 34.4, RDW Std Deviation 42.1, RDW Coeff of Jenna 12.7, Plt Count 333, MPV 8.7, Immature Gran % (Auto) 1.700 H, Neut % (Auto) 56.4, Lymph % (Auto) 10.0 L, [place] % (Auto) 8.4, Eos % (Auto) 23.2 H, Baso % (Auto) 0.3, Absolute Neuts (auto) 8.1 H, Absolute Lymphs (auto) 1.43, Nucleated RBC % 0, Differential Comment SCANNED, Diff Path Review November08/04/21 17:17: Sodium 139, Potassium 3.7, Chloride 101, Carbon Dioxide 35.0 H, Anion Gap 3 L, BUN 25 H, Creatinine 0.84, Estim Creat Clear Calc 50.47, Est GFR (MDRD) Af Amer 85, Est GFR (MDRD) Non-Af 70, BUN/Creatinine Ratio 29.9 H, Glucose 125 H, Calcium 10.5 H, Troponin I High Sens 7 08/04/21 17:17: B-Natriuretic Peptide 295.3 H 08/04/21 18:05: Urine Color Yellow, Urine Clarity Clear, Urine pH 5.0, Ur Specific [place] 1.020, Urine Protein 15 H, Urine Glucose (UA) Normal, Urine Ketones 5 H, Urine Occult Blood Negative, Urine Nitrite Negative, Urine Bilirubin Negative, Urine Urobilinogen Normal, Ur Leukocyte Esterase 25 H, Urine RBC 0 SEEN, Urine WBC 0-5 SEEN, Ur Squamous Epith Cells 0-5 SEEN, Urine Bacteria 0 SEEN, Urine Mucus 0 SEEN Micro: Microbiology 08/04/21 17:17 Nasal Secretion SARS-CoV-2 Antigen (Rapid) - Final Rhythm Strip Rhythm Strip: A-fib Rate: 92 Radiology Impression Chest X-Ray 08/04/21 17:20 IMPRESSION: Bilateral pleural effusions. Electronically Signed: Benajmin Hsu MD at 17:36 EST , Service support , Assessment & Plan Assessment/Plan (1) CHF exacerbation: QUALIFIERS: Heart failure type: diastolic Qualified Code(s): I50.33 - Acute on chronic diastolic (congestive) heart failure PLAN: The patient is a 75 y/o F w/ PMHx: Chronic anemia/Fe deficiency anemia, PAF, CAD, COPD/Asthma, Chronic pain syndrome, HTN, HLD, KWABENA, GERD, Hx PE/DVT, Hx Thyroid CA s/p partial thyroidectomy, Hx Breast CA s/p mastectomy, recently admitted 07/26/21-08/01/21 with acute on chronic respiratory failure with hypoxia secondary to Diastolic CHF exacerbation with BL effusions eventually developing BEREKET, hyponatremia/hypo-osmolar secondary to diuresis discharged off diuretics with also diagnosis UTI placed on cefdinir who now re-presents to the [facility] ED on 08/04/20 with recurrent dyspnea and appearance of volume overload with home RN evaluation with concern for recurrent exacerbation given no diuretic therapy and tachycardia prompting evaluation. #1. Acute Decompensated Diastolic CHF likely secondary to recent necessity to hold diuretic therapy with prior BEREKET: Patient administered judicious IV lasix in the ED, will admit to PCU, maintain on cardiac telemetry, obtain cardiac enzyme series, obtain serial EKGs, continue very gentle IV lasix diuresis given recent BEREKET with close renal function monitoring, monitor I/Os, maintain on intake restriction, continue medical therapy, obtain magnesium level, obtain TSH level if not recently performed, 07/27/21 ECHO w/ EF 55-60%, mild AI, no notable change from prior therefore will defer repeat. #2. Recent acute kidney injury on CKD stage III, unclear subtype: Recent admission with acute kidney injury with BUN/creatinine up to BUN 62 and creatinine 2.53 which trended downward following nephrotoxic regimen hold, current admission BUN/creatinine 25/0.84 with prior baseline noted 0.7-0.8, closely monitor given diuretic usage again. If necessary, may reconsult nephrology #3. Hyperglycemia: Admission admission glucose 125, last A1c noted 09/25/2017 5.3% at that time, given noted hyperglycemia 3 prior admission will obtain A1c to be cautious and if elevated will transition to ADA diet with insulin sliding scale and Accu-Cheks with nutrition consultation for education and teaching. #4. PAF: We will continue patient home sotalol, diltiazem and Eliquis regimen. #5. CAD: We will continue patient home Eliquis, currently on sotalol/diltiazem for PAF as noted, holding combination hydrochlorothiazide/lisinopril as noted but resume once appropriate, continue statin therapy. #6. Chronic COPD/asthma: Not on any routine inhalers, will have as needed albuterol, encourage head of bed and I-S. #7. Hypertension: Given current planned usage of IV Lasix temporarily will hold patient home lisinopril?hydrochlorothiazide but likely once appropriate may consider transition back to this agent, continue diltiazem, as needed IV hydralazine. #8. Hyperlipidemia: We will continue patient on statin therapy. #9. Chronic pain syndrome: We will cautiously continue patient home [place] regimen, hold for sedation, given chronic back pain encourage frequent positional changes with continued therapy consultations. #10. History of VTE with prior PE/DVT: We will continue patient home Eliquis regimen #11. History of breast cancer: Status post prior mastectomy considered in remission, maintain on anastrozole home regimen. #12. Chronic normocytic anemia/iron deficiency anemia: Admission hemoglobin 11.4, baseline 11, stable, trend. #13. History thyroid cancer: Status post partial thyroidectomy, from current list not on supplementation, TSH requested and pending. #14. Obesity: Weight loss and lifestyle changes encouraged. #15. GERD: Continue patient home PPI. #16. DVT prophylaxis: SCDs, continue home Eliquis regimen. #17. CODE status: Patient does not have healthcare power of audience development manager nor living will but notes that her children would be her decision makers. Discussed CODE status at length including difference between FULL code, DNR-CCA and DNR-CC status. Following discussions about the differences in these status, requested Full Code status. Advanced Care Planning Face to Face Time: 16 minutes. Charges/Coding Visit Charges Inpatient E&M: 04320 Init Hosp L3 Procedures Hospitalists Procedures: 08945 Advncd Care Plan 30 Min
[2021-08-04] MEDS: Furosemide 40 MG/4 ML Vial IV (19:06)
[2021-08-04 19:24] LABS: Magnesium 1.7 mg/dL (1.6-2.6)
--- NOTE | 2021-08-04 19:49 | PCS.PANDOC ---
PANDEMIC DOCUMENTATION INITIATED: Date: 03/06/2021 Time: 190
[2021-08-04 21:05] LABS: Troponin-I HS 8 pg/mL (3.0-54.0)
[2021-08-04] MEDS: Pravastatin 20 MG Tablet PO (21:12)
[2021-08-04] MEDS: Zolpidem Tartrate 5 MG Tablet PO (21:12)
[2021-08-04] MEDS: HYDROcodone Bitartrate/Apap 5/325 Tablet PO (21:12)
[2021-08-04] MEDS: Cefdinir 300 MG Capsule PO (21:12)
[2021-08-04] MEDS: Sotalol Hydrochloride 80 MG Tablet PO (21:12)
[2021-08-04] MEDS: Nystatin Powder 15gm Bottle 1 APPLIC TOPICAL (21:13)
[2021-08-04] MEDS: dilTIAZem CD 120 MG Capsule PO (21:13)
[2021-08-04] MEDS: APIXABAN 5 MG TABLET PO (21:13)
[2021-08-04 23:53] LABS: Troponin-I HS 8 pg/mL (3.0-54.0)
[2021-08-05] VITALS (9 sets, daily range): BP systolic 105–125; BP diastolic 56–75; PULSE 64–94; RESP 16–20; TEMP 36.2–36.7; O2SAT 94–98
[2021-08-05] MEDS: Nystatin Powder 15gm Bottle 1 APPLIC TOPICAL ×3 (04:58→23:51)
[2021-08-05] MEDS: DiphenhydrAMINE 50 MG/ML Syringe 25 MG IV (06:57)
[2021-08-05] MEDS: 0.9% Saline Lock 10 ML Syringe IV ×2 (06:58→08:59)
[2021-08-05 08:48] LABS: Absolute Lymphocyte Count 1.49 X10^3/uL (0.83-4.51); Absolute Neutrophil Count 5.9 X10^3/uL (2.0-7.7); Basophil# 0.06 X10^3/uL; Basophil% 0.5 % (0-1); Eosinophils% 22.5 % (0-5); Hematocrit 35.6 % (37-47); Hemoglobin 11.2 g/dL (12.0-15.0); Lymphocyte # 1.49 X10^3/ul (0.83-4.51); Lymphocyte % 13.3 % (19-41); Mean Corp Hgb Conc 31.5 g/dL (32-36); Mean Corpuscular Hgb 29.9 pg (27.0-32.0); Mean Corpuscular Volume 94.9 fL (81-99); Mean Platelet Vol. 8.9 fl (6.2-12.0); Monocyte# 0.97 X10^3/uL; Monocyte% 8.6 % (0-10); NRBC Flagged by Analyzer 0 % (0-5); Neutrophil # 5.92 X10^3/uL (2.7-7.7); Neutrophil % 52.8 % (47-70); POSITIVE DIFFERENTIAL YES; Platelet Count 311 K/mm3 (150-450); RBC Distribution Width CV 12.8 % (11.6-14.6); RBC Distribution Width SD 44.3 fl (35.1-43.9); Red Blood Count 3.75 M/mm3 (4.2-5.4); White Blood Count 11.2 K/mm3 (4.4-11.0)
[2021-08-05] MEDS: dilTIAZem CD 120 MG Capsule PO ×2 (08:52→23:51)
[2021-08-05] MEDS: Cefdinir 300 MG Capsule PO (08:52)
[2021-08-05] MEDS: Pantoprazole Sodium 20 MG Tablet PO (08:52)
[2021-08-05] MEDS: Calcium Carb/Vitamin D 1 TABLET Tablet 2 TABLET PO (08:52)
[2021-08-05] MEDS: Sotalol Hydrochloride 80 MG Tablet PO ×2 (08:52→23:49)
[2021-08-05] MEDS: Furosemide 40 MG/4 ML Vial IV (08:53)
[2021-08-05] MEDS: Anastrozole 1 MG TABLET PO (08:53)
[2021-08-05] MEDS: APIXABAN 5 MG TABLET PO ×2 (08:53→23:49)
[2021-08-05 08:59] LABS: ALB/GLOB Ratio 0.8 RATIO (0.9-2.4); AST(SGOT) 6 U/L (15-37); Alanine Aminotransfer ALT/SGPT 15 U/L (13-56); Albumin, Serum 2.4 g/dL (3.2-5.0); Alkaline Phosphatase 46 U/L (45-117); Anion Gap 6 (5-15); BUN 25 mg/dL (7-18); BUN/Creat Ratio 28.1 RATIO (10-20); Calcium,Total 9.7 mg/dL (8.5-10.1); Chloride 97 mmol/L (98-107); Cholesterol 115 mg/dL (200); Creatinine, Serum 0.89 mg/dL (0.55-1.02); EST Glomerular Filtration Rate 65 mL/min (>60); Est Glom Filt Rate - Afr Amer 79 mL/min (>60); Estimated Creatinine Clearance 47.63 ml/min; Globulin 3.2 g/dL (2.2-4.2); Glucose 186 mg/dL (74-106); High Density Lipoprotein 31 mg/dL; Potassium 3.3 mmol/L (3.5-5.1); Protein, Total 5.6 g/dL (6.4-8.2); Sodium Level 139 mmol/L (136-145); Thyroid Stim Hormone (TSH) 1.34 uIU/mL (0.358-3.74); Triglycerides 165 mg/dL; Very Low Density Lipoprotein 33 mg/dL (5-40)
[2021-08-05 09:37] LABS: Hemoglobin A1c 6.3 % (3.8-5.6)
[2021-08-05 09:43] LABS: Eosinophil# 2.52 X10^3/uL
[2021-08-05 09:44] LABS: Differential Indicated SCAN CRITERIA MET
[2021-08-05 09:45] LABS: Differential Comment SCANNED
--- NOTE | 2021-08-05 11:16 | PN.HOSP_ITS ---
Documented by User: Faby Lopez NP-C 08/05/21 11:33 Subjective Subjective Seen and examined. Patient lying in bed no distress noted, currently on 2 L nasal cannula. Patient reports continued shortness of breath Objective Data Objective Data Vital Signs: Vital Signs Temp Pulse Resp BP Pulse Ox 98.1 F 94 18 109/62 98 08/05/21 08:42 08/05/21 08:42 08/05/21 08:42 08/05/21 08:42 08/05/21 08:42 Oxygen Flow Rate (L/min) 2 Oxygen Delivery Method Nasal Cannula Weight: 192 lb 0.362 oz Body Mass Index (BMI) 31.2 Intake & Output: Intake and Output for Last 24 Hours 08/03/21 08/04/21 08/05/21 23:59 23:59 23:59 Intake Total 300 / 300 60 / 60 Output Total 650 / 650 0 / 0 Balance -350 / -350 60 / 60 Lab / Micro Data Result Diagrams: 08/05/21 08:05 08/05/21 08:05 Labs: Laboratory Results - last 24 hr 08/04/21 17:17: WBC 14.3 H, RBC 3.66 L, Hgb 11.4 L, Hct 33.1 L, MCV 90.4, MCH 31.1, MCHC 34.4, RDW Std Deviation 42.1, RDW Coeff of Jenna 12.7, Plt Count 333, MPV 8.7, Immature Gran % (Auto) 1.700 H, Neut % (Auto) 56.4, Lymph % (Auto) 10.0 L, Dunn % (Auto) 8.4, Eos % (Auto) 23.2 H, Baso % (Auto) 0.3, Absolute Neuts (auto) 8.1 H, Absolute Lymphs (auto) 1.43, Nucleated RBC % 0, Differential Comment SCANNED, Diff Path Review November08/04/21 17:17: Sodium 139, Potassium 3.7, Chloride 101, Carbon Dioxide 35.0 H, Anion Gap 3 L, BUN 25 H, Creatinine 0.84, Estim Creat Clear Calc 50.47, Est GFR (MDRD) Af Amer 85, Est GFR (MDRD) Non-Af 70, BUN/Creatinine Ratio 29.9 H, Glucose 125 H, Calcium 10.5 H, Troponin I High Sens 7 08/04/21 17:17: B-Natriuretic Peptide 295.3 H 08/04/21 17:17: Magnesium 1.7 08/04/21 18:05: Urine Color Yellow, Urine Clarity Clear, Urine pH 5.0, Ur Specific [place] 1.020, Urine Protein 15 H, Urine Glucose (UA) Normal, Urine Ketones 5 H, Urine Occult Blood Negative, Urine Nitrite Negative, Urine Bilirubin Negative, Urine Urobilinogen Normal, Ur Leukocyte Esterase 25 H, Urine RBC 0 SEEN, Urine WBC 0-5 SEEN, Ur Squamous Epith Cells 0-5 SEEN, Urine Bacteria 0 SEEN, Urine Mucus 0 SEEN 08/04/21 20:15: Troponin I High Sens 8 08/04/21 23:25: Troponin I High Sens 8 08/05/21 08:05: WBC 11.2 H, RBC 3.75 L, Hgb 11.2 L, Hct 35.6 L, MCV 94.9, MCH 29.9, MCHC 31.5 L D, RDW Std Deviation 44.3 H, RDW Coeff of Jenna 12.8, Plt Count 311, MPV 8.9, Immature Gran % (Auto) 2.300 H, Neut % (Auto) 52.8, Lymph % (Auto) 13.3 L, Dunn % (Auto) 8.6, Eos % (Auto) 22.5 H, Baso % (Auto) 0.5, Absolute Ne uts (auto) 5.9, Absolute Lymphs (auto) 1.49, Nucleated RBC % 0, Differential Comment SCANNED, Diff Path Review November foll 08/05/21 08:05: Sodium 139, Potassium 3.3 L, Chloride 97 L, Carbon Dioxide 36.0 H, Anion Gap 6, BUN 25 H, Creatinine 0.89, Estim Creat Clear Calc 47.63, Est GFR (MDRD) Af Amer 79, Est GFR (MDRD) Non-Af 65, BUN/Creatinine Ratio 28.1 H, Glucose 186 H, Calcium 9.7, Total Bilirubin 0.30, AST 6 L, ALT 15, Alkaline Phosphatase 46, Total Protein 5.6 L, Albumin 2.4 L, Globulin 3.2, Albumin/Globulin Ratio 0.8 L, Triglycerides 165, Cholesterol 115, LDL Cholesterol 51, VLDL Cholesterol 33, HDL Cholesterol 31 L, TSH 1.34, Free T4 1.20 08/05/21 08:05: Hemoglobin A1c 6.3 H Micro: Microbiology 08/04/21 17:17 Nasal Secretion SARS-CoV-2 Antigen (Rapid) - Final Radiography Diagnostic Testing: Radiology Impression Chest X-Ray 08/04/21 17:20 IMPRESSION: Bilateral pleural effusions. Electronically Signed: Benjamin Hsu MD at 17:36 EST , Service support , Rhythm Strip Rhythm Strip: A-fib Rate: 92 Physical Exam Const alert, oriented x3 and no apparent distress HEENT head/scalp atraumatic and moist oral mucous membranes Head and Scalp: normocephalic Eyes conjunctivae normal and no scleral icterus Neck full ROM and supple General: trachea midline Resp normal respiratory effort and normal air movement Effort and Inspection: able to speak in complete sentences and symmetric chest movement Auscultation: crackles bilateral base Cardio regular rate, regular rhythm, S1 normal heart sound and S2 normal heart sound GI normal to inspection, nondistended, normoactive bowel sounds, soft to palpation and non-tender Extremity normal to inspection and full ROM General Extremity: edema bilateral lower extremity Details: moderate Peripheral Pulses: Yes pulses 2+ throughout Skin no rashes or lesions noted, no wounds and skin turgor normal Neuro oriented x3, moves all extremities, no focal motor deficits and no sensory deficits noted Sensorium / Orientation: awake and alert Speech: speech normal Motor Exam: general weakness Psych affect normal Assessment & Plan Assessment/Plan (1) CHF exacerbation: QUALIFIERS: Heart failure type: diastolic Qualified Code(s): I50.33 - Acute on chronic diastolic (congestive) heart failure PLAN: 1. Acute hypoxic respiratory failure secondary to decompensated diastolic CHF -Continue IV Lasix -Patient currently on 2 L nasal cannula oxygen, wean as patient tolerates -Continue intake and output -CBC and BMP ordered daily -Encourage incentive spirometry 2. Chronic kidney disease stage III -Patient currently at baseline creatinine of 0.8 -Due to recent diagnosis of BEREKET we will obtain BMP daily 3. Weakness -PT and OT to eval and treat -Case management following this patient will likely need placement DVT prophylaxis-chronically anticoagulated with Eliquis This patient was seen by JOSE JohnC under the supervision of Dr. Alford. 9 minutes spent in clinical coordination of patient's plan of care. Documented by User: Dr. Ric Alford MD 08/05/21 11:46 Objective Data Lab / Micro Data Result Diagrams: 08/05/21 08:05 08/05/21 08:05 Assessment & Plan Addt'l Comments This patient was seen in conjunction with LEONIDAS John . I have indepe ndently interviewed and examined the patient and reviewed pertinent historical, laboratory, and other data. Please refer to LEONIDAS John note for details of this patient's presentation, findings, and recommendations. I have reviewed LEONIDAS John note and concur with documented findings. In brief, Patient is a 75-year-old lady admitted with shortness of breath.. Patient admitted on admission almost a week ago with similar complaints diagnosed with acute hypoxic respiratory failure secondary to CHF. Her kidney function did worsen resulting in discontinuation of Lasix. Presented back with similar symptoms. Lasix initiated admitted to a monitored bed. Patient was also found to be significantly deconditioned consult placed to PT and OT in addition to case management/social sciences professor to assist with disposition Physical Examination: GENERAL: cooperative HEENT: Atraumatic; EYES; Anicteric, Normal Conjunctiva NECK; supple, normal thyroid, RESPIRATORY: Diminished to auscultation CARDIOVASCULAR: Regular S1 S2, GI: soft, normoactive bowel sounds, : No Renal angle tenderness; EXTREMITIES: edema, no clubbing, MUSCULOSKELETAL: no muscle waisting NEURO: Awake; no lateralizing signs. SKIN: No Rash PSYCH; Flat affect 1. Acute hypoxic respiratory failure secondary to acute congestive heart failure with preserved ejection fraction 2. Bilateral pleural effusion 3. Essential hypertension 4. Paroxysmal atrial fibrillation, 5. Class I obesity with BMI of 32 6. Physical deconditioning 7. Dyslipidemia 8. History of breast CA-status post right breast mastectomy. Patient in remission and is currently on anastrozole 9. History of VTE with previous history of DVT/PE 10. GERD 11. Coronary artery disease 12. Peripheral vascular disease 13. History of thyroid CA status post thyroidectomy 14. DVT prophylaxis ? Rachquis total time spent on patient evaluation including reviewing her initial assessment including history and physical diagnostic data as well as management orders in addition to examining and interviewing patient and discussion with other providers involved in patient's care; 36 minutes 25 of which was spent by myself and 11 by Faby Lopez ROTARY SCREEN PRINTING MACHINE OPERATOR-C Charges/Coding Visit Charges Inpatient E&M: 69852 Subs Hosp L3
[2021-08-05] MEDS: HYDROcodone Bitartrate/Apap 5/325 Tablet PO (12:56)
--- NOTE | 2021-08-05 13:50 | CPS ---
started by nursing
[2021-08-05] MEDS: Acetaminophen 325 MG Tablet 650 MG PO (18:23)
[2021-08-05] MEDS: Potassium Chloride Oral Tablet 20 MEQ 40 MEQ PO (23:21)
[2021-08-05] MEDS: Menthol/Lanolin/Calamine/Znox 113 GM Tube 1 APPLIC TOPICAL (23:49)
[2021-08-05] MEDS: Pravastatin 20 MG Tablet PO (23:52)
[2021-08-06] MEDS: Cefdinir 300 MG Capsule PO ×2 (00:01→10:02)
[2021-08-06] MEDS: HYDROcodone Bitartrate/Apap 5/325 Tablet PO ×2 (00:07→06:01)
[2021-08-06] MEDS: DiphenhydrAMINE 50 MG/ML Syringe 25 MG IV (00:09)
[2021-08-06 00:40] LABS: Bedside Glucose 158 mg/dL (70-110)
[2021-08-06 02:50] VITALS: BP 113/62; PULSE 57; RESP 16; TEMP 37.3; O2SAT 94
[2021-08-06 03:00] VITALS: PULSE 57
[2021-08-06] MEDS: Nystatin Powder 15gm Bottle 1 APPLIC TOPICAL (06:00)
[2021-08-06 07:01] VITALS: PULSE 55
[2021-08-06 07:01] LABS: Bedside Glucose 166 mg/dL (70-110)
[2021-08-06 07:57] LABS: Absolute Neutrophil Count 6.4 X10^3/uL (2.0-7.7); Basophil# 0.05 X10^3/uL; Basophil% 0.4 % (0-1); Eosinophils% 22.8 % (0-5); Hematocrit 32.9 % (37-47); Hemoglobin 10.2 g/dL (12.0-15.0); Lymphocyte % 12.7 % (19-41); Mean Corpuscular Hgb 29.7 pg (27.0-32.0); Mean Corpuscular Volume 95.9 fL (81-99); Mean Platelet Vol. 9.2 fl (6.2-12.0); Monocyte# 0.98 X10^3/uL; Monocyte% 8.3 % (0-10); NRBC Flagged by Analyzer 0 % (0-5); Neutrophil # 6.39 X10^3/uL (2.7-7.7); Neutrophil % 54.4 % (47-70); POSITIVE DIFFERENTIAL YES; Platelet Count 272 K/mm3 (150-450); RBC Distribution Width CV 13.1 % (11.6-14.6); RBC Distribution Width SD 45.1 fl (35.1-43.9); Red Blood Count 3.43 M/mm3 (4.2-5.4); White Blood Count 11.8 K/mm3 (4.4-11.0)
[2021-08-06 08:00] LABS: Differential Indicated SCAN CRITERIA MET; Eosinophil# 2.69 X10^3/uL
[2021-08-06 08:18] LABS: Anion Gap 7 (5-15); BUN 35 mg/dL (7-18); BUN/Creat Ratio 29.4 RATIO (10-20); Chloride 97 mmol/L (98-107); Creatinine, Serum 1.19 mg/dL (0.55-1.02); EST Glomerular Filtration Rate 47 mL/min (>60); Est Glom Filt Rate - Afr Amer 57 mL/min (>60); Estimated Creatinine Clearance 35.62 ml/min; Glucose 160 mg/dL (74-106); Potassium 3.5 mmol/L (3.5-5.1); Sodium Level 138 mmol/L (136-145)
[2021-08-06 08:58] VITALS: BP 110/52; PULSE 59; RESP 18; TEMP 36.3; O2SAT 94
[2021-08-06 09:27] VITALS: O2SAT 93; O2SAT 95
[2021-08-06] MEDS: Anastrozole 1 MG TABLET PO (10:03)
[2021-08-06] MEDS: Bisacodyl 10 MG Suppository RC (10:04)
[2021-08-06] MEDS: APIXABAN 5 MG TABLET PO (10:04)
[2021-08-06] MEDS: Pantoprazole Sodium 20 MG Tablet PO (10:04)
[2021-08-06] MEDS: Furosemide 40 MG/4 ML Vial IV (10:04)
[2021-08-06] MEDS: Calcium Carb/Vitamin D 1 TABLET Tablet 2 TABLET PO (10:04)
[2021-08-06] MEDS: Menthol/Lanolin/Calamine/Znox 113 GM Tube 1 APPLIC TOPICAL (10:05)
[2021-08-06 10:06] LABS: Differential Comment SCANNED
[2021-08-06] MEDS: Insulin Lispro 100 UNIT/ML INSULN.PEN SC (11:34)
[2021-08-06 11:36] LABS: Bedside Glucose 161 mg/dL (70-110)
--- NOTE | 2021-08-06 12:02 | PCM.DC ---
Discharge Instructions Diet Discharge Diet: Low fat / Low cholesterol, 6 Cup Fluid Restriction and 2000 mg Sodium Diet Activity Discharge Activity: Return to Normal Activity Dressing / Incision Call your doctor if you observe: Shortness of breath, Swelling in the ankles, Chest pain and Increased palpitations (irregular heartbeat) Follow Up Care Test Results: Test results from this visit will be discussed in further detail at your follow-up appointment, if applicable. Discharge Plan Admission Admit Date/Time: 08/04/21 19:02 Primary Reason for Your Visit: CHF exacerbation Attending Provider: Ric Alford Primary Care Provider: Jessica Aguero Discharge Orders/Prescriptions Prescriptions: New furosemide 20 mg tablet 20 mg PO DAILY Qty: 30 RF: 0 Continued omeprazole 20 MG capsule 20 mg PO DAILY RF: 0 albuterol sulfate 1 PUFF inhaler 2 puff INHALATION Q4H PRN PRN (Reason: Asthma) RF: 0 zolpidem 12.5 MG tablet,ext release multiphase 6.25 mg PO QHS PRN PRN (Reason: Insomnia) RF: 0 calcium citrate-vitamin D3 1 EACH tablet 2 tab PO DAILY RF: 0 hydrocodone-acetaminophen 5-325 mg tablet 1 tab PO TID RF: 0 acetaminophen 650 mg Tablet Extended Release 1,300 mg PO DAILY PRN (Reason: Pain) RF: 0 Prolia 60 mg/mL Syringe 60 mg SUBCUT .[id number] RF: 0 Eliquis 5 mg tablet 5 mg PO BID RF: 0 lisinopril-hydrochlorothiazide 10-12.5 mg tablet 1 tab PO DAILY RF: 0 pravastatin 20 mg tablet 20 mg PO QHS RF: 0 diltiazem HCl [Cardizem CD] 120 mg capsule,extended release 24hr 120 mg PO BID RF: 0 L.acidoph,saliva-B.bif-S.therm [Acidophilus Probiotic Blend] 175 mg Capsule 1 cap PO DAILY RF: 0 cefdinir 300 mg capsule 300 mg PO BID Qty: 10 RF: 0 nystatin 100,000 unit/gram powder 1 applic topical TID Qty: 60 RF: 0 diphenhydramine HCl [Benadryl] 25 mg capsule 25 mg PO Q6H PRN (Reason: Hives) Qty: 30 RF: 0 anastrozole 1 mg tablet 1 mg PO DAILY 90 Days Qty: 90 RF: 3 sotalol 80 mg tablet 80 mg PO BID Qty: 60 RF: 11 Referrals / Follow Up: Jessica Aguero DO [Primary Care Provider] - Disposition Disposition (needs filled in before D/C Order can be placed): Home Health Service
[2021-08-06 12:09] VITALS: BP 141/58; PULSE 69; RESP 18; TEMP 36.9; O2SAT 94
--- NOTE | 2021-08-06 12:09 | DS.PCM_ITS ---
Documented by User: LEONIDAS John 08/06/21 12:13 Providers Date of Admission: 08/04/21 Primary Care Physician: Dr. Jessica Aguero DO Reason For Visit: CHF EXACERBATION Diagnosis Discharge Diagnosis (1) CHF exacerbation: Status: Chronic Code(s): I50.9 - Heart failure, unspecified Qualifiers: Heart failure type: diastolic Qualified Code(s): I50.33 - Acute on chronic diastolic (congestive) heart failure Medications at Discharge Home Medications albuterol sulfate 2 puff INHALATION Q4H PRN PRN 06/16/13 omeprazole 20 mg PO DAILY 06/16/13 calcium citrate-vitamin D3 2 tab PO DAILY 10/24/18 zolpidem 6.25 mg PO QHS PRN PRN 03/24/19 Prolia 60 mg SUBCUT .[id number] 11/25/20 acetaminophen 1,300 mg PO DAILY PRN 11/25/20 hydrocodone-acetaminophen 1 tab PO TID 11/25/20 anastrozole 1 mg tablet 1 mg PO DAILY 90 Days #90 tab 01/04/21 Eliquis 5 mg PO BID 02/06/21 lisinopril-hydrochlorothiazide 1 tab PO DAILY 02/06/21 sotalol 80 mg tablet 80 mg PO BID #60 tab 02/27/21 pravastatin 20 mg tablet 20 mg PO QHS tab 04/28/21 L.acidoph,saliva-B.bif-S.therm [Acidophilus Probiotic Blend] 1 cap PO DAILY 07/27/21 diltiazem HCl [Cardizem CD] 120 mg PO BID 07/27/21 cefdinir 300 mg PO BID #10 cap 08/01/21 diphenhydramine HCl [Benadryl] 25 mg PO Q6H PRN #30 cap 08/01/21 nystatin 1 applic TOPICAL TID #60 g 08/01/21 furosemide 20 mg PO DAILY #30 tab 08/06/21 Hospital Course Operations None Procedures None Summary of Care Provided Hospital Course: Patient is a 75-year-old female who initially presented with increased shortness of breath and lower extremity edema. Patient was recently discharged following admission for acute kidney injury and was not discharged home on Lasix. But when patient returned to the hospital patient was noted to be in an acute exacerbation of CHF. Patient was given IV Lasix throughout her admission and will be discharged home with Lasix 20 mg p.o. daily which is patient's previous dose. It was recommended to patient that due to her frequent hospital admissions over the past few months that it may be beneficial for patient to go to a long-term facility for rehab however patient refused and states that home health is adequate. Patient will be discharged home with continued home health which patient had from previous admission. This patient was seen by Faby Lopez NP-C under the supervision of Dr. Alford. 14 minutes spent in clinical coordination of patient's plan of care. Physical Exam Const alert, oriented x3 and no apparent distress HEENT head/scalp atraumatic and moist oral mucous membranes Eyes conjunctivae normal and no scleral icterus Neck full ROM and supple General: trachea midline Resp normal respiratory effort and normal air movement Effort and Inspection: able to speak in complete sentences and symmetric chest movement Auscultation: crackles bilateral base Cardio regular rate, regular rhythm, S1 normal heart sound and S2 normal heart sound GI normal to inspection, nondistended, normoactive bowel sounds, soft to palpation and non-tender Extremity normal to inspection and full ROM General Extremity: edema bilateral lower extremity Details: moderate Skin no rashes or lesions noted, no wounds and skin turgor normal Neuro oriented x3, moves all extremities, no focal motor deficits and no sensory deficits noted Sensorium / Orientation: awake and alert Speech: speech normal Motor Exam: general weakness Psych affect normal Weight / BMI Weight Weight: 194 lb 7.163 oz Body Mass Index (BMI) 31.2 ABG / Lab / Microbiology Data Result Diagrams: 08/06/21 07:19 08/06/21 07:19 Laboratory: Laboratory Results - last 24 hr 08/05/21 23:54: POC Glucose 158 H 08/06/21 06:05: POC Glucose 166 H 08/06/21 07:19: WBC 11.8 H, RBC 3.43 L, Hgb 10.2 L, Hct 32.9 L, MCV 95.9, MCH 29.7, MCHC 31.0 L, RDW Std Deviation 45.1 H, RDW Coeff of Jenna 13.1, Plt Count 272, MPV 9.2, Immature Gran % (Auto) 1.400 H, Neut % (Auto) 54.4, Lymph % (Auto) 12.7 L, Williams % (Auto) 8.3, Eos % (Auto) 22.8 H, Baso % (Auto) 0.4, Absolute Neuts (auto) 6.4, Absolute Lymphs (auto) 1.50, Nucleated RBC % 0, Differential Comment SCANNED, Diff Path Review November foll 08/06/21 07:19: Sodium 138, Potassium 3.5, Chloride 97 L, Carbon Dioxide 34.0 H, Anion Gap 7, BUN 35 H, Creatinine 1.19 H, Estim Creat Clear Calc 35.62, Est GFR (MDRD) Af Amer 57 L, Est GFR (MDRD) Non-Af 47 L, BUN/Creatinine Ratio 29.4 H, Glucose 160 H, Calcium 9.0 08/06/21 11:31: POC Glucose 161 H Microbiology: Microbiology 08/04/21 17:17 Nasal Secretion SARS-CoV-2 Antigen (Rapid) - Final D/C Instructions Discharge Diet: Low fat / Low cholesterol, 6 Cup Fluid Restriction and 2000 mg Sodium Diet Call your doctor if you observe: Shortness of breath, Swelling in the ankles, Chest pain and Increased palpitations (irregular heartbeat) Meaningful Use Info Meaningful Use Diagnoses (Choose all that apply): CHF CHF MONTRELL/ARB ordered at discharge?: Yes Documented LVEF (%): 55 Discharge Plan Admission Admit Date/Time: 08/04/21 19:02 Primary Reason for Your Visit: CHF exacerbation Attending Provider: Ric Alford Primary Care Provider: Jessica Aguero Discharge Orders/Prescriptions Prescriptions: New furosemide 20 mg tablet 20 mg PO DAILY Qty: 30 RF: 0 Continued omeprazole 20 MG capsule 20 mg PO DAILY RF: 0 albuterol sulfate 1 PUFF inhaler 2 puff INHALATION Q4H PRN PRN (Reason: Asthma) RF: 0 zolpidem 12.5 MG tablet,ext release multiphase 6.25 mg PO QHS PRN PRN (Reason: Insomnia) RF: 0 calcium citrate-vitamin D3 1 EACH tablet 2 tab PO DAILY RF: 0 hydrocodone-acetaminophen 5-325 mg tablet 1 tab PO TID RF: 0 acetaminophen 650 mg Tablet Extended Release 1,300 mg PO DAILY PRN (Reason: Pain) RF: 0 Prolia 60 mg/mL Syringe 60 mg SUBCUT .[id number] RF: 0 Eliquis 5 mg tablet 5 mg PO BID RF: 0 lisinopril-hydrochlorothiazide 10-12.5 mg tablet 1 tab PO DAILY RF: 0 pravastatin 20 mg tablet 20 mg PO QHS RF: 0 diltiazem HCl [Cardizem CD] 120 mg capsule,extended release 24hr 120 mg PO BID RF: 0 L.acidoph,saliva-B.bif-S.therm [Acidophilus Probiotic Blend] 175 mg Capsule 1 cap PO DAILY RF: 0 cefdinir 300 mg capsule 300 mg PO BID Qty: 10 RF: 0 nystatin 100,000 unit/gram powder 1 applic topical TID Qty: 60 RF: 0 diphenhydramine HCl [Benadryl] 25 mg capsule 25 mg PO Q6H PRN (Reason: Hives) Qty: 30 RF: 0 anastrozole 1 mg tablet 1 mg PO DAILY 90 Days Qty: 90 RF: 3 sotalol 80 mg tablet 80 mg PO BID Qty: 60 RF: 11 Referrals / Follow Up: Jessica Aguero DO [Primary Care Provider] - Disposition Disposition (needs filled in before D/C Order can be placed): Home Health Service Documented by User: Dr. Ric Alofrd MD 08/06/21 12:51 Providers Date of Admission: 08/04/21 Reason For Visit: CHF EXACERBATION Medications at Discharge Home Medications albuterol sulfate 2 puff INHALATION Q4H PRN PRN 06/16/13 omeprazole 20 mg PO DAILY 06/16/13 calcium citrate-vitamin D3 2 tab PO DAILY 10/24/18 zolpidem 6.25 mg PO QHS PRN PRN 03/24/19 Prolia 60 mg SUBCUT .[id number] 11/25/20 acetaminophen 1,300 mg PO DAILY PRN 11/25/20 hydrocodone-acetaminophen 1 tab PO TID 11/25/20 anastrozole 1 mg tablet 1 mg PO DAILY 90 Days #90 tab 01/04/21 Eliquis 5 mg PO BID 02/06/21 lisinopril-hydrochlorothiazide 1 tab PO DAILY 02/06/21 sotalol 80 mg tablet 80 mg PO BID #60 tab 02/27/21 pravastatin 20 mg tablet 20 mg PO QHS tab 04/28/21 L.acidoph,saliva-B.bif-S.therm [Acidophilus Probiotic Blend] 1 cap PO DAILY 07/27/21 diltiazem HCl [Cardizem CD] 120 mg PO BID 07/27/21 cefdinir 300 mg PO BID #10 cap 08/01/21 diphenhydramine HCl [Benadryl] 25 mg PO Q6H PRN #30 cap 08/01/21 nystatin 1 applic TOPICAL TID #60 g 08/01/21 furosemide 20 mg PO DAILY #30 tab 08/06/21 Hospital Course Operations None Summary of Care Provided Minutes Spent on Discharge: 35 Hospital Course: This patient was seen in conjunction with LEONIDAS John . I have independently interviewed and examined the patient and reviewed pertinent historical, laboratory, and other data. Please refer to LEONIDAS John note for details of this patient's presentation, findings, and recommendations. I have reviewed LEONIDAS John note and concur with documented findings. In brief, Patient is a 75-year-old lady admitted with shortness of breath.. Patient admitted on admission almost a week ago with similar complaints diagnosed with acute hypoxic respiratory failure secondary to CHF. Her kidney function did worsen resulting in discontinuation of Lasix. Presented back with similar symptoms. Lasix initiated admitted to a monitored bed. Patient was also found to be significantly deconditioned consult placed to PT and OT in addition to case management/social media community manager to assist with disposition Physical Examination: GENERAL: cooperative HEENT: Atraumatic; EYES; Anicteric, Normal Conjunctiva NECK; supple, normal thyroid, RESPIRATORY: Diminished to auscultation CARDIOVASCULAR: Regular S1 S2, GI: soft, normoactive bowel sounds, : No Renal angle tenderness; EXTREMITIES: edema, no clubbing, MUSCULOSKELETAL: no muscle waisting NEURO: Awake; no lateralizing signs. SKIN: No Rash PSYCH; Flat affect 1. Acute hypoxic respiratory failure secondary to acute congestive heart failure with preserved ejection fraction 2. Bilateral pleural effusion 3. Essential hypertension 4. Paroxysmal atrial fibrillation, 5. Class I obesity with BMI of 32 6. Physical deconditioning 7. Dyslipidemia 8. History of breast CA-status post right breast mastectomy. Patient in remission and is currently on anastrozole 9. History of VTE with previous history of DVT/PE 10. GERD 11. Coronary artery disease 12. Peripheral vascular disease 13. History of thyroid CA status post thyroidectomy 14. DVT prophylaxis ? Maureen total time spent on discharge 35 minutes 24 of which was spent by myself and 11 by Faby Lopez ELECTRICAL LINESWORKER-C ABG / Lab / Microbiology Data Result Diagrams: 08/06/21 07:19 08/06/21 07:19 Discharge Plan Admission Admit Date/Time: 08/04/21 19:02 Primary Reason for Your Visit: CHF exacerbation Attending Provider: Ric Alford Primary Care Provider: Jessica Aguero Discharge Orders/Prescriptions Prescriptions: New furosemide 20 mg tablet 20 mg PO DAILY Qty: 30 RF: 0 Continued omeprazole 20 MG capsule 20 mg PO DAILY RF: 0 albuterol sulfate 1 PUFF inhaler 2 puff INHALATION Q4H PRN PRN (Reason: Asthma) RF: 0 zolpidem 12.5 MG tablet,ext release multiphase 6.25 mg PO QHS PRN PRN (Reason: Insomnia) RF: 0 calcium citrate-vitamin D3 1 EACH tablet 2 tab PO DAILY RF: 0 hydrocodone-acetaminophen 5-325 mg tablet 1 tab PO TID RF: 0 acetaminophen 650 mg Tablet Extended Release 1,300 mg PO DAILY PRN (Reason: Pain) RF: 0 Prolia 60 mg/mL Syringe 60 mg SUBCUT .[id number] RF: 0 Eliquis 5 mg tablet 5 mg PO BID RF: 0 lisinopril-hydrochlorothiazide 10-12.5 mg tablet 1 tab PO DAILY RF: 0 pravastatin 20 mg tablet 20 mg PO QHS RF: 0 diltiazem HCl [Cardizem CD] 120 mg capsule,extended release 24hr 120 mg PO BID RF: 0 L.acidoph,saliva-B.bif-S.therm [Acidophilus Probiotic Blend] 175 mg Capsule 1 cap PO DAILY RF: 0 cefdinir 300 mg capsule 300 mg PO BID Qty: 10 RF: 0 nystatin 100,000 unit/gram powder 1 applic topical TID Qty: 60 RF: 0 diphenhydramine HCl [Benadryl] 25 mg capsule 25 mg PO Q6H PRN (Reason: Hives) Qty: 30 RF: 0 anastrozole 1 mg tablet 1 mg PO DAILY 90 Days Qty: 90 RF: 3 sotalol 80 mg tablet 80 mg PO BID Qty: 60 RF: 11 Referrals / Follow Up: Jessica Aguero DO [Primary Care Provider] - Disposition Disposition (needs filled in before D/C Order can be placed): Home Health Service Charges/Coding Visit Charges Inpatient E&M: 23986 Disch Hosp Hospital Course Operations None
--- NOTE | 2021-08-07 11:09 | CASEMGMT ---
Readmission chart review: 07/26-08/01/21 Bilat pleural effusions 08/04-08/06/21 CHF exac Pt was sent initially sent in by [facility] nurse for cough, abn CXR and was admitted for bilat pleural effusions. Plan was initially for thoracentesis but then radiology stated there was not enough fluid to remove at that time. SNF was recommended for pt but pt declined SNF as she wanted to go to [facility] and they are not currently accepting pt's. Pt was agreeable to [facility] and preferred [facility]. Pt was discharged from [facility] d/t pt requiring more than they can provide and pt non-compliance. Pt did not qualify of home oxygen at discharge. Pt returned to [facility] ED 3 days later for increased weakness, continued SOB and elevated HR. Pt admitted for CHF exacerbation and was discharged back home with [facility]. Pt did not qualify for home oxygen. Zahida ANDRES CM
[2021-08-07 14:03] LABS: Pathologist Review Reviewed
[2021-08-07 14:09] LABS: Pathologist Review Reviewed
[2021-08-07 14:21] LABS: Pathologist Review Reviewed
== END 2021-08-06 13:56 | disposition home health service (06) | DRG 291 ==
LOC: ED 18:57 → PCU 19:14
PROVIDERS: Admitting Provider Family Medicine; Emergency Provider Emergency Medicine; PCP Internal Medicine; Visit Provider Internal Medicine
DX: I13.0 Hypertensive heart and chronic kidney disease with heart failure and stage 1 through stage 4 chronic kidney disease, or unspecified chronic kidney disease (principal); I50.33 Acute on chronic diastolic (congestive) heart failure; J96.21 Acute and chronic respiratory failure with hypoxia; Z79.01 Long term (current) use of anticoagulants; J44.9 Chronic obstructive pulmonary disease, unspecified; I48.0 Paroxysmal atrial fibrillation; N18.30 Chronic kidney disease, stage 3 unspecified; K21.9 Gastro-esophageal reflux disease without esophagitis; E78.5 Hyperlipidemia, unspecified; I25.10 Atherosclerotic heart disease of native coronary artery without angina pectoris; G47.33 Obstructive sleep apnea (adult) (pediatric); D50.9 Iron deficiency anemia, unspecified; G89.4 Chronic pain syndrome; Z20.822 Contact with and (suspected) exposure to COVID-19; E66.9 Obesity, unspecified; R73.9 Hyperglycemia, unspecified; Z79.811 Long term (current) use of aromatase inhibitors; Z68.32 Body mass index [BMI] 32.0-32.9, adult; Z85.3 Personal history of malignant neoplasm of breast; M81.0 Age-related osteoporosis without current pathological fracture; Z86.711 Personal history of pulmonary embolism; Z85.850 Personal history of malignant neoplasm of thyroid
CPT/HCPCS: 36415; 71045; 80048; 80053; 80061; 81001; 82962; 83036; 83735; 83880; 84439; 84443; 84484; 85025; 87426; 93005; 97162; 97166; 97803; 99251; 99285; A4216; G0463; J1940

== ENCOUNTER 2021-08-17 15:11 | Outpatient (RCR) | payer MEDICARE, MEDICAID, SELFPAY ==
[2021-08-17 15:52] LABS: Anion Gap 8 (5-15); BUN 19 mg/dL (7-18); BUN/Creat Ratio 17.4 RATIO (10-20); Calcium,Total 8.3 mg/dL (8.5-10.1); Chloride 104 mmol/L (98-107); Creatinine, Serum 1.09 mg/dL (0.55-1.02); EST Glomerular Filtration Rate 52 mL/min (>60); Est Glom Filt Rate - Afr Amer 63 mL/min (>60); Glucose 200 mg/dL (74-106); Potassium 3.8 mmol/L (3.5-5.1); Sodium Level 141 mmol/L (136-145)
== END 2021-08-21 18:00 | disposition home or self-care (01) ==
LOC: HHLAB 15:11
PROVIDERS: PCP Internal Medicine; Visit Provider Internal Medicine
DX: I13.0 Hypertensive heart and chronic kidney disease with heart failure and stage 1 through stage 4 chronic kidney disease, or unspecified chronic kidney disease (principal); I50.33 Acute on chronic diastolic (congestive) heart failure; N18.30 Chronic kidney disease, stage 3 unspecified
CPT/HCPCS: 80048; 82040

== ENCOUNTER → 2021-11-17 | Outpatient (CLI) | payer MEDICARE, MEDICAID, SELFPAY ==
[2021-11-17 12:45] LABS: Anion Gap 7 (5-15); BUN 25 mg/dL (7-18); BUN/Creat Ratio 27.3 RATIO (10-20); Calcium,Total 10.3 mg/dL (8.5-10.1); Chloride 105 mmol/L (98-107); Creatinine, Serum 0.92 mg/dL (0.55-1.02); EST Glomerular Filtration Rate 63 mL/min (>60); Est Glom Filt Rate - Afr Amer 76 mL/min (>60); Glucose 161 mg/dL (74-106); Potassium 3.6 mmol/L (3.5-5.1); Sodium Level 143 mmol/L (136-145)
== END | disposition home or self-care (01) ==
LOC: LAB 11:31
PROVIDERS: PCP Internal Medicine; Referring Provider Internal Medicine Nephrology; Visit Provider Internal Medicine Nephrology
DX: N17.9 Acute kidney failure, unspecified (principal)
CPT/HCPCS: 36415; 80048

== ENCOUNTER 2021-12-27 22:41 | Inpatient (IN) | payer MEDICARE, MEDICAID, SELFPAY ==
[2021-12-27 22:42] VITALS: BP 132/78; PULSE 62; RESP 24; TEMP 37.2; O2SAT 95; BMI 30.9
--- NOTE | 2021-12-27 22:54 | EKG12_ITS ---
Test Reason : SOB Blood Pressure : / mmHG Vent. Rate : 078 BPM Atrial Rate : 078 BPM P-R Int : 222 ms QRS Dur : 080 ms QT Int : 424 ms P-R-T Axes : 095 009 051 degrees QTc Int : 483 ms Sinus rhythm with 1st degree A-V block with Premature atrial complexes Otherwise normal ECG Confirmed by MISTY GONZALEZ, JILL ([id number]), film editor ALEXEY BILLINGS ([id number]) on 01/01/2022 10:11:01 AM Referred By: LUCI Confirmed By:JILL JAY MD
--- NOTE | 2021-12-27 23:04 | RAD_ITS ---
INDICATION: Bilateral rales, weight gain, dyspnea, edema EXAMINATION/TECHNIQUE: X-RAY - XR Chest 1 View COMPARISON: 08/04/2021 FINDINGS: LINES/DEVICES: None. LUNGS: No consolidation, edema or effusion. No pneumothorax. MEDIASTINUM AND CARDIOVASCULAR STRUCTURES: Atherosclerotic calcifications, similar compared to the prior. BONES AND SOFT TISSUES: Unremarkable. RAD/Chest 1 View (Portable) IMPRESSION: No acute cardiopulmonary disease. Electronically Signed: José Pierce MD at 23:36 EDT ,
[2021-12-27 23:10] LABS: Absolute Lymphocyte Count 1.14 X10^3/uL (0.83-4.51); Absolute Neutrophil Count 13.4 X10^3/uL (2.0-7.7); Basophil# 0.03 X10^3/uL; Basophil% 0.2 % (0-1); Eosinophil# 0.19 X10^3/uL; Eosinophils% 1.2 % (0-5); Hematocrit 38.1 % (37-47); Hemoglobin 12.5 g/dL (12.0-15.0); Lymphocyte # 1.14 X10^3/ul (0.83-4.51); Lymphocyte % 7.1 % (19-41); Mean Corp Hgb Conc 32.8 g/dL (32-36); Mean Corpuscular Hgb 29.9 pg (27.0-32.0); Mean Corpuscular Volume 91.1 fL (81-99); Mean Platelet Vol. 9.2 fl (6.2-12.0); Monocyte# 1.33 X10^3/uL; Monocyte% 8.3 % (0-10); NRBC Flagged by Analyzer 0 % (0-5); Neutrophil # 13.36 X10^3/uL (2.7-7.7); Neutrophil % 82.8 % (47-70); Platelet Count 238 K/mm3 (150-450); RBC Distribution Width CV 12.6 % (11.6-14.6); RBC Distribution Width SD 41.1 fl (35.1-43.9); Red Blood Count 4.18 M/mm3 (4.2-5.4); White Blood Count 16.1 K/mm3 (4.4-11.0)
[2021-12-27 23:14] VITALS: O2SAT 95
[2021-12-27 23:28] LABS: Troponin-I HS (w/2H Reflex) 4 pg/mL (3.0-54.0)
--- NOTE | 2021-12-27 23:28 | EDS_ITS ---
HPI History of Present Illness Chief Complaint: Shortness of Breath Detail of Chief Complaint: Shortness of breath and weight gain Informant: patient Onset/Context/Timing Onset: Days Context: gradual Timing: Continuous Quality: Positive for Dyspnea on exertion, Orthopnea and Wheezing; Negative for PND Current Severity: Mild Maximum Severity: Severe Worsened by: Exertion, Lying flat and Coughing Relieved by: Nothing Associated Symptoms cough, clear sputum and other; Negative for rhinorrhea, post nasal drip, ear pain, fever, sore throat, subjective, chills or sweats Chest Pain: Positive for Intermittent and - (Pain with coughing.) Narrative PE Risk Factors: Positive for Prior DVT or PE; Negative for Cancer, OCP + Smoking + > 35, Recent immobilization, Recent surgery and Recent travel Prior similar symptoms: Yes (Exacerbation of congestive heart failure) Recent Illness/Hospitalization: Yes (July of this year) [facility] Medical History Atherosclerotic heart disease of [place] coronary artery without angina pectoris Atrial fibrillation Bilateral pleural effusion CAD (coronary artery disease) Chemo-induced gastroenteritis Chemotherapy induced nausea and vomiting Chronic pain Colitis Constipation COPD (chronic obstructive pulmonary disease) Educational circumstance Essential hypertension GERD (gastroesophageal reflux disease) Hemorrhoid HTN (hypertension) Hx of deep vein thrombophlebitis of lower extremity Hyperlipidemia Insomnia Iron deficiency anemia due to chronic blood loss Lumbar spondylosis Obesity Obesity (BMI 30.0-34.9) Obstructive sleep apnea Osteoarthritis Osteoporosis Paroxysmal atrial fibrillation Paroxysmal atrial fibrillation Paroxysmal atrial tachycardia Personal history of pulmonary embolism port placement PORT REMOVAL Positive fecal occult blood test Pure hypercholesterolemia PVD (peripheral vascular disease) Rectal prolapse Sepsis Thyroid cancer Home Medications albuterol sulfate 2 puff INHALATION Q4H PRN PRN 06/16/13 [History Last Taken 10/01/17 08:00] omeprazole 20 mg PO DAILY 06/16/13 [History Last Taken 07/11/21] calcium citrate-vitamin D3 2 tab PO DAILY 10/24/18 [History Last Taken 07/11/21] zolpidem 6.25 mg PO QHS PRN PRN 03/24/19 [History Last Taken 07/10/21] Prolia 60 mg SUBCUT .[id number] 11/25/20 [History Last Taken 05/22/21] acetaminophen 1,200 mg PO DAILY PRN 11/25/20 [History Last Taken 07/11/21] hydrocodone-acetaminophen 1 tab PO BID PRN 11/25/20 [History Last Taken 07/10/21] sotalol 80 mg tablet 80 mg PO BID #60 tab 02/27/21 [Rx Last Taken 07/11/21] pravastatin 20 mg tablet 20 mg PO QHS tab 04/28/21 [History Last Taken 07/10/21] diltiazem HCl 120 mg capsule,extended release 24 hr 120 mg PO BID #180 cap 08/09/21 [Rx Last Taken Unknown] furosemide 20 mg tablet 20 mg PO DAILY #90 tab 08/09/21 [Rx Last Taken Unknown] potassium chloride 10 mEq tablet,extended release 10 meq PO DAILY #90 tab 08/09/21 [Rx Last Taken Unknown] apixaban 5 mg tablet See Rx Instructions .ROUTE .COMPLEX #180 tablet 10/30/21 [Rx Last Taken Unknown] anastrozole 1 mg tablet 1 mg PO DAILY tab 12/08/21 [History Last Taken Unknown] Allergy/AdvReac Type Severity Reaction Status Date / Time niacin Allergy Intermediate I DON'T Verified 12/27/21 22:49 REMEMBER, I CAN'T TAKE IT bee stings Allergy Swelling Uncoded 12/27/21 22:49 Family History Brother Diabetes Heart disease Sister Breast cancer Mother Cancer brain and bone mets Aunt Breast cancer Grandmother Cancer Surgical History History of appendectomy History of cholecystectomy History of incisional hernia repair Hx of mastectomy S/P appendectomy S/P carpal tunnel release S/P cataract extraction S/P hysterectomy S/P lumbar discectomy S/P partial thyroidectomy S/P revision of total knee S/P right breast biopsy S/P total knee replacement Social History household members: none Smoking Status: Never smoker alcohol intake: never substance use type: does not use caffeine: No ROS ROS ED Constitutional Constitutional ED: Reports other Details: Patient reports 5 pound weight gain. She states she weighs herself daily. ; Denies chills, fever(s), sweats or weight loss Eyes Eyes: Denies blurry vision, change in vision or diplopia ENT ENT ED: Denies ear pain, rhinorrhea or sore throat Cardiovascular Cardiovascular: Reports chest pain and orthopnea; Denies palpitations or racing heartbeat Respiratory/Chest Respiratory/Chest: Reports cough, dyspnea, dyspnea on exertion, orthopnea, sputum and other Details: States sputum is frothy. The sputum is not blood- tinged. Gastrointestinal Gastrointestinal: Denies abdominal pain, diarrhea, nausea or vomiting Genitourinary Genitourinary ED: Denies dysuria, hematuria or urinary frequency Musculoskeletal Musculoskeletal: Denies arthralgias, back pain, myalgias or neck pain Integumentary Denies Abrasions or rash Neurologic Neurologic: Reports weakness; Denies headache(s) or paresthesias Endocrine Endocrinology: Denies heat intolerance, polydipsia, polyphagia or polyuria Hematologic/Lymphatic Hematologic/Lymphatic: Denies anemia, easy bleeding, easy bruising or lymphadenopathy EXAM Physical Exam Const Vital Signs: 12/27/21 22:42 12/27/21 23:14 12/27/21 23:56 Temperature 98.9 F Temperature Source Temporal Pulse Rate 62 77 Respiratory Rate 24 H 20 H Respiratory Effort Short of Breath Labored Respiratory Depth Deep Respiratory Pattern Tachypnea Blood Pressure 132/78 H 136/61 H Blood Pressure Mean 96 86 Pulse Ox 95 91 Oxygen Delivery Method Nasal Cannula Nasal Cannula Room Air Oxygen Flow Rate (L/min) 2 2 Patient is not on oxygen at home. She is presently on 2 L. Will ask nurse what her pulse ox was on room air. Positive well nourished, well developed and obese General Appearance ED: well developed and other Patient is tachypneic. There is minimal use of accessory muscles. ; Negative for NAD or pallor Nutritional Appearance: obese HEENT Reports TM's clear and moist mucous membranes HEENT Narrative: Uvula midline. No erythema or exudate. atraumatic; Negative for tenderness Tympanic Membrane ED: Yes TM's clear Eyes PERRL and EOMs intact bilaterally General Eye ED: Negative for pale conjunctiva or scleral icterus Neck no lymphadenopathy, supple, no meningeal signs and no JVD Resp No normal respiratory effort and No clear to auscultation bilaterally Effort and Inspection: Negative for pain with movement Auscultation: rales bilateral mid, lower and 2/[address] way up and diminished lung sounds Cardio regular rate, regular rhythm, S1 normal heart sound, S2 normal heart sound and no murmurs GI non-tender, non-distended and no masses Auscultation: normoactive bowel sounds Palpation: soft and tender Back/Spine no CVA tenderness and normal to inspection Extremity normal to inspection General Extremety ED: Yes edema; Negative for tenderness General Extremity: edema Neuro oriented x3, CN's II-XII intact bilaterally and no sensory deficits noted Aniket Coma Scale: document GCS findings Spontaneous Obeys Commands Oriented 15 Sensorium / Orientation: alert Motor Exam: strength 5/5 throughout and general weakness Psych mental status grossly normal Thought Process: normal thought process Skin no wounds General Skin Exam: Negative for jaundice or pallor Lesions: no lesions Rashes: no rashes MDM MDM MDM Narrative Medical decision making narrative: Patient states she went to Dr. Rick's office today. Blood work was obtained. A assessed kidney function because she has history of renal insufficiency/failure. She also has history of paroxysmal atrial fibrillation on Eliquis. She was admitted earlier this year for congestive heart failure. With her reporting a 5 pound weight gain no fever and frothy sputum concern patient has exacerbation of her CHF. Single view chest x- ray is unremarkable. There is no cephalization or curly B-lines. White count is elevated. Will obtain COVID and influenza panel. Troponin was obtained to assess for myocardial ischemia. CBC to assess white count and rule out anemia. She appears pale and ill; however, her conjunctive is pink. Lab Data Attestation: I reviewed the patient's lab results. Lab results narrative: With a troponin of 4 and 4872 hours of pain this essentially rules out cardiac ischemia. BNP is 85.4. Patient does have an elevated white count. Her cough is now productive of green-colored sputum. Rapid COVID and influenza test are negative. Patient desaturates getting out of bed to 88%. With her having bilateral rales and negative COVID and influenza test we will treat for pneumonia. Clinically she has pneumonia even though x- ray does not reveal infiltrate per my read. The read by radiology was negative as well. Labs: Laboratory Results - last 24 hr 12/27/21 12/27/21 12/27/21 23:05 23:05 23:05 WBC 16.1 H RBC 4.18 L Hgb 12.5 Hct 38.1 MCV 91.1 MCH 29.9 MCHC 32.8 RDW Std Deviation 41.1 RDW Coeff of Jenna 12.6 Plt Count 238 MPV 9.2 Immature Gran % (Auto) 0.400 Neut % (Auto) 82.8 H Lymph % (Auto) 7.1 L [place] % (Auto) 8.3 Eos % (Auto) 1.2 Baso % (Auto) 0.2 Absolute Neuts (auto) 13.4 H Absolute Lymphs (auto) 1.14 Nucleated RBC % 0 Troponin I High Sens Cancelled 4 B-Natriuretic Peptide 12/27/21 23:05 WBC RBC Hgb Hct MCV MCH MCHC RDW Std Deviation RDW Coeff of Jenna Plt Count MPV Immature Gran % (Auto) Neut % (Auto) Lymph % (Auto) [place] % (Auto) Eos % (Auto) Baso % (Auto) Absolute Neuts (auto) Absolute Lymphs (auto) Nucleated RBC % Troponin I High Sens B-Natriuretic Peptide 85.4 Radiography Chest X-Ray - ED: 1 View and Read by ED Physician (Single view portable chest x- ray interpreted by nm at 2331 reveals normal cardiac silhouette and size. There is no evidence of cephalization or curly B-lines. There is no effusion. There is no infiltrate. Osseous structures are unremarkable. Perihilar region is unremarkable.) Diagnostic Testing: Clinical Impression(s) from Imaging Studies Chest X-Ray 12/27/21 23:04 IMPRESSION: No acute cardiopulmonary disease. Electronically Signed: José Pierce MD at 23:36 EDT , EKG Initial EKG: Attestation: I personally reviewed and interpreted this EKG as follows: Interpretation: Sinus Rhythm (Ventricular rate is 78 with a first-degree AV block. There is 1 premature atrial beat noted. DE interval is 222 ms. QS duration 80 ms. QT duration 424 ms. [place] is normal. There is no acute ischemia.) Discharge Plan Triage Chief Complaint: Shortness of Breath ED Provider: Yovani Fischer Dx/Rx/DC Orders Clinical Impression: Community acquired pneumonia, Essential hypertension, Acute respiratory failure with hypoxia, History of COPD, Anticoagulant long-term use, First degree heart block Prescriptions: No Action anastrozole 1 mg tablet 1 mg PO DAILY RF: 0 omeprazole 20 MG capsule 20 mg PO DAILY RF: 0 albuterol sulfate 1 PUFF inhaler 2 puff INHALATION Q4H PRN PRN (Reason: Asthma) RF: 0 zolpidem 12.5 MG tablet,ext release multiphase 6.25 mg PO QHS PRN PRN (Reason: Insomnia) RF: 0 calcium citrate-vitamin D3 1 EACH tablet 2 tab PO DAILY RF: 0 hydrocodone-acetaminophen 5-325 mg tablet 1 tab PO BID PRN (Reason: Pain) RF: 0 acetaminophen 650 mg Tablet Extended Release 1,200 mg PO DAILY PRN (Reason: Pain) RF: 0 Prolia 60 mg/mL Syringe 60 mg SUBCUT .[id number] RF: 0 pravastatin 20 mg tablet 20 mg PO QHS RF: 0 sotalol 80 mg tablet 80 mg PO BID Qty: 60 RF: 11 furosemide 20 mg tablet 20 mg PO DAILY Qty: 90 RF: 3 potassium chloride 10 mEq tablet extended release 10 meq PO DAILY Qty: 90 RF: 3 diltiazem HCl [Cardizem CD] 120 mg capsule,extended release 24hr 120 mg PO BID Qty: 180 RF: 3 Eliquis 5 mg tablet See Rx Instructions .ROUTE .COMPLEX Qty: 180 RF: 3 Primary Care Provider: Jessica Aguero Referrals: Jessica Aguero DO [Primary Care Provider] - Disposition Disposition: Acute Care Hospital [facility]
[2021-12-27 23:40] LABS: BNP,B-Type NATRIURETIC PEPTIDE 85.4 pg/mL (0-100)
[2021-12-27 23:56] VITALS: BP 136/61; PULSE 77; RESP 20; O2SAT 91
[2021-12-28] VITALS (9 sets, daily range): BP systolic 95–142; BP diastolic 56–105; PULSE 71–87; RESP 18–28; TEMP 36.8–37.4; O2SAT 86–98; BMI 27.3
--- NOTE | 2021-12-28 00:41 | PCM.HP.STD ---
[facility] - General General Date of Admission: 12/28/21 HPI Narrative ALLISON MAHER, is a 76 F with a significant history of atrial fibrillation on Cardizem, Eliquis, and sotalol; chronic pain on as needed [place] and Tylenol; obstructive sleep apnea; right breast cancer status post mastectomy who presents to the emergency department with progressively worsening shortness of breath that started a day before presentation. Associated with her symptom is cough productive for clear to thick white sputum. Reportedly while at emergency department patient had greenish sputum. She reports audible wheezes. She reports weakness. She reported that she is too weak and short of breath even to walk. Patient lives at home by herself. On day of presentation she went to see Dr. Bocanegra for pain management. Reportedly Dr. Bocanegra realizing that patient looked sick advised him to go to her glove machine operator's (Dr. Rick's) office. Reportedly patient went to his glove machine operator office and blood work was done. Patient then went home and at the urging of patient's family patient came to the emergency department. Reportedly at the emergency department patient was too weak to ambulate. When patient's sat at the edge of the bed her oxygen saturation dropped to 88% so a decision was made for patient to stay at the hospital. Patient report that in the past 4 days she had a weight gain of 3 to 5 pounds. Further she reports swelling of bilateral hands and bilateral feet. She reports anorexia. Reportedly she follows a fluid restriction regimen. [facility] Medical History Atherosclerotic heart disease of [place] coronary artery without angina pectoris Atrial fibrillation Bilateral pleural effusion CAD (coronary artery disease) Chemo-induced gastroenteritis Chemotherapy induced nausea and vomiting Chronic pain Colitis Constipation COPD (chronic obstructive pulmonary disease) Educational circumstance Essential hypertension GERD (gastroesophageal reflux disease) Hemorrhoid HTN (hypertension) Hx of deep vein thrombophlebitis of lower extremity Hyperlipidemia Insomnia Iron deficiency anemia due to chronic blood loss Lumbar spondylosis Obesity Obesity (BMI 30.0-34.9) Obstructive sleep apnea Osteoarthritis Osteoporosis Paroxysmal atrial fibrillation Paroxysmal atrial fibrillation Paroxysmal atrial tachycardia Personal history of pulmonary embolism port placement PORT REMOVAL Positive fecal occult blood test Pure hypercholesterolemia PVD (peripheral vascular disease) Rectal prolapse Sepsis Thyroid cancer Home Medications albuterol sulfate 2 puff INHALATION Q4H PRN PRN 06/16/13 [History Last Taken 10/01/17 08:00] omeprazole 20 mg PO DAILY 06/16/13 [History Last Taken 07/11/21] calcium citrate-vitamin D3 2 tab PO DAILY 10/24/18 [History Last Taken 07/11/21] zolpidem 6.25 mg PO QHS PRN PRN 03/24/19 [History Last Taken 07/10/21] Prolia 60 mg SUBCUT .[id number] 11/25/20 [History Last Taken 05/22/21] acetaminophen 1,200 mg PO DAILY PRN 11/25/20 [History Last Taken 07/11/21] hydrocodone-acetaminophen 1 tab PO BID PRN 11/25/20 [History Last Taken 07/10/21] sotalol 80 mg tablet 80 mg PO BID #60 tab 02/27/21 [Rx Last Taken 07/11/21] pravastatin 20 mg tablet 20 mg PO QHS tab 04/28/21 [History Last Taken 07/10/21] diltiazem HCl 120 mg capsule,extended release 24 hr 120 mg PO BID #180 cap 08/09/21 [Rx Last Taken Unknown] furosemide 20 mg tablet 20 mg PO DAILY #90 tab 08/09/21 [Rx Last Taken Unknown] potassium chloride 10 mEq tablet,extended release 10 meq PO DAILY #90 tab 08/09/21 [Rx Last Taken Unknown] apixaban 5 mg tablet See Rx Instructions .ROUTE .COMPLEX #180 tablet 10/30/21 [Rx Last Taken Unknown] anastrozole 1 mg tablet 1 mg PO DAILY tab 12/08/21 [History Last Taken Unknown] Allergy/AdvReac Type Severity Reaction Status Date / Time niacin Allergy Intermediate I DON'T Verified 12/27/21 22:49 REMEMBER, I CAN'T TAKE IT bee stings Allergy Swelling Uncoded 12/27/21 22:49 Family History Brother Diabetes Heart disease Sister Breast cancer Mother Cancer brain and bone mets Aunt Breast cancer Grandmother Cancer Surgical History History of appendectomy History of cholecystectomy History of incisional hernia repair Hx of mastectomy S/P appendectomy S/P carpal tunnel release S/P cataract extraction S/P hysterectomy S/P lumbar discectomy S/P partial thyroidectomy S/P revision of total knee S/P right breast biopsy S/P total knee replacement Social History household members: none Smoking Status: Never smoker alcohol intake: never substance use type: does not use caffeine: No ROS ROS Narrative Pertinent positives and pertinent negatives as noted in HPI. All other systems were reviewed and are negative. Vital Signs Vital Signs Vital Signs: 12/27/21 22:42 12/27/21 23:14 12/27/21 23:56 Temperature 98.9 F Temperature Source Temporal Pulse Rate 62 77 Respiratory Rate 24 H 20 H Respiratory Effort Short of Breath Labored Respiratory Depth Deep Respiratory Pattern Tachypnea Blood Pressure 132/78 H 136/61 H Blood Pressure Mean 96 86 Pulse Ox 95 91 Oxygen Delivery Method Nasal Cannula Nasal Cannula Room Air Oxygen Flow Rate (L/min) 2 2 12/28/21 00:22 Temperature Temperature Source Pulse Rate Respiratory Rate 28 H Respiratory Effort Respiratory Depth Respiratory Pattern Blood Pressure Blood Pressure Mean Pulse Ox 86 Oxygen Delivery Method Room Air Oxygen Flow Rate (L/min) Weight Weight: 84.4 kg Body Mass Index (BMI) 30.9 Physical Exam Narrative Physical exam: General: Well-nourished, well-developed. Head: Normocephalic, atraumatic, no tenderness Eyes: Vision is grossly intact. EOMI ENT, no trauma, moist mucous membranes, no rhinorrhea Neck: Nontender, full range of motion. CVS: Regular rate and rhythm. S1-S2 present. No murmur, gallop or rub. Bilateral lower legs 2-3+ pitting edema. Respiratory : Left base rales, chest wall nontender, no wheezing Abdomen: Soft, nontender, nondistended, normal bowel sounds, no masses : Deferred Back: Nontender, no CVA tenderness, no midline spinal tenderness Extremities: Nontender full range of motion, no trauma Skin: Normal color, no trauma, abrasions Neuro: Alert, oriented, cranial nerves II through XII grossly intact. Psychiatry: Normal mood. Normal affect. Not depressed. Not anxious. Results Lab / Micro Data Result Diagrams: 12/27/21 23:05 Labs: Laboratory Results - last 24 hr 12/27/21 23:05: WBC 16.1 H, RBC 4.18 L, Hgb 12.5, Hct 38.1, MCV 91.1, MCH 29.9, MCHC 32.8, RDW Std Deviation 41.1, RDW Coeff of Jenna 12.6, Plt Count 238, MPV 9.2, Immature Gran % (Auto) 0.400, Neut % (Auto) 82.8 H, Lymph % (Auto) 7.1 L, [place] % (Auto) 8.3, Eos % (Auto) 1.2, Baso % (Auto) 0.2, Absolute Neuts (auto) 13.4 H, Absolute Lymphs (auto) 1.14, Nucleated RBC % 0 12/27/21 23:05: Troponin I High Sens Cancelled 12/27/21 23:05: Troponin I High Sens 4 12/27/21 23:05: B-Natriuretic Peptide 85.4 Micro: Microbiology 12/27/21 23:30 Nasal Secretion SARS-CoV-2 & FLU Antigen (Rapid) - Final Radiology Impression Chest X-Ray 12/27/21 23:04 IMPRESSION: No acute cardiopulmonary disease. Electronically Signed: José Pierce MD at 23:36 EDT , Assessment & Plan Assessment/Plan (1) Community acquired pneumonia: QUALIFIERS: Laterality: unspecified laterality Qualified Code(s): J18.9 - Pneumonia, unspecified organism PLAN: Community-acquired pneumonia Gram-positive, gram-negative or atypical. Chest x-ray was visualized and independent interpreted and I agree with radiologist interpretation of no acute cardiopulmonary process. SARS-CoV-2 and rapid flu antigen was negative. Sputum gram stain and culture was ordered emergency department; follow. Blood culture x2 ordered emergency department; follow. Review of labs showed lactic acid of 2.0. CBC reviewed showed white count of 16.1; with neutrophilia and lymphopenia. Strep pneumoniae antigen and Legionella urine antigen ordered. Check procalcitonin. Started on azithromycin and ceftriaxone the emergency department and continued. Mucinex ordered. Albuterol as needed Chronic heart failure with preserved ejection fraction Stable Echocardiogram on 07/27/2021 showed estimated ejection fraction of 55 to 60%. No hemodynamically significant valvular abnormalities were noted. Echocardiogram on 11/25/2020 showed stage I diastolic dysfunction. BNP on 12/27/2021 was 91.4 and then 85.4. With low BNP and outs as a patient of CHF. We will continue home Lasix. Daily weights. Cardiac diet. Intake and output and fluid restrictions ordered. Hypertension Blood pressure is not within goal Cardizem and Lasix continued Trend blood pressure and adjust blood pressure medications. CKD stage II Stable Trend BMP Debility PT and OT to work with patient for strengthening balance training Case management consult for disposition. DVT prophylaxis Not indicated since patient is on Eliquis and Eliquis has been continued Charges/Coding Visit Charges Inpatient E&M: 68608 Init Hosp L3
[2021-12-28 01:08] LABS: Reflex Troponin-HS? (from REC) Y
[2021-12-28 02:01] LABS: Troponin-I HS 6 pg/mL (3.0-54.0)
[2021-12-28] MEDS: guaiFENesin 1,200 MG Tablet 1200 MG PO ×3 (02:25→21:56)
[2021-12-28] MEDS: HYDROcodone Bitartrate/Apap 5/325 Tablet PO ×2 (02:35→23:03)
[2021-12-28] MEDS: Zolpidem Tartrate 5 MG Tablet PO ×2 (02:40→23:03)
[2021-12-28 04:38] LABS: Reflex Lactate? Y
[2021-12-28 05:43] LABS: Absolute Lymphocyte Count 0.65 X10^3/uL (0.83-4.51); Absolute Neutrophil Count 13.9 X10^3/uL (2.0-7.7); Basophil# 0.03 X10^3/uL; Basophil% 0.2 % (0-1); Eosinophil# 0.02 X10^3/uL; Eosinophils% 0.1 % (0-5); Hematocrit 35.8 % (37-47); Hemoglobin 11.7 g/dL (12.0-15.0); Lymphocyte # 0.65 X10^3/ul (0.83-4.51); Lymphocyte % 4.1 % (19-41); Mean Corp Hgb Conc 32.7 g/dL (32-36); Mean Corpuscular Hgb 30.3 pg (27.0-32.0); Mean Corpuscular Volume 92.7 fL (81-99); Mean Platelet Vol. 9.7 fl (6.2-12.0); Monocyte# 1.25 X10^3/uL; Monocyte% 7.8 % (0-10); NRBC Flagged by Analyzer 0 % (0-5); Neutrophil # 13.94 X10^3/uL (2.7-7.7); Neutrophil % 87.3 % (47-70); Platelet Count 188 K/mm3 (150-450); RBC Distribution Width CV 12.6 % (11.6-14.6); RBC Distribution Width SD 42.4 fl (35.1-43.9); Red Blood Count 3.86 M/mm3 (4.2-5.4)
[2021-12-28 05:59] LABS: Lactic Acid 2.8 mmol/L (0.4-1.9)
[2021-12-28 06:24] LABS: Anion Gap 11 (5-15); BUN 22 mg/dL (7-18); BUN/Creat Ratio 24.8 RATIO (10-20); Calcium,Total 8.8 mg/dL (8.5-10.1); Chloride 104 mmol/L (98-107); Creatinine, Serum 0.89 mg/dL (0.55-1.02); EST Glomerular Filtration Rate 66 mL/min (>60); Est Glom Filt Rate - Afr Amer 79 mL/min (>60); Estimated Creatinine Clearance 46.88 ml/min; Glucose 182 mg/dL (74-106); Sodium Level 139 mmol/L (136-145)
--- NOTE | 2021-12-28 07:02 | PN.HOSP_ITS ---
Subjective Subjective Notes increased LE and weight gain, despite fluid restriction, dietary compliance. Objective Data Objective Data Vital Signs: Vital Signs Temp Pulse Resp BP Pulse Ox 37.1 C 87 24 H 142/60 H 98 12/28/21 02:11 12/28/21 02:11 12/28/21 02:11 12/28/21 02:11 12/28/21 02:11 Oxygen Flow Rate (L/min) 2 Oxygen Delivery Method Nasal Cannula Weight: 76 kg Body Mass Index (BMI) 27.3 Intake & Output: Intake and Output for Last 24 Hours 12/26/21 12/27/21 12/28/21 23:59 23:59 23:59 Intake Total 405 / 405 Output Total 150 / 150 Balance 255 / 255 Lab / Micro Data Result Diagrams: 12/28/21 04:29 12/28/21 04:29 Labs: Laboratory Results - last 24 hr 12/27/21 23:05: WBC 16.1 H, RBC 4.18 L, Hgb 12.5, Hct 38.1, MCV 91.1, MCH 29.9, MCHC 32.8, RDW Std Deviation 41.1, RDW Coeff of Jenna 12.6, Plt Count 238, MPV 9.2, Immature Gran % (Auto) 0.400, Neut % (Auto) 82.8 H, Lymph % (Auto) 7.1 L, Oliver % (Auto) 8.3, Eos % (Auto) 1.2, Baso % (Auto) 0.2, Absolute Neuts (auto) 13.4 H, Absolute Lymphs (auto) 1.14, Nucleated RBC % 0 12/27/21 23:05: Troponin I High Sens Cancelled 12/27/21 23:05: Troponin I High Sens 4 12/27/21 23:05: B-Natriuretic Peptide 85.4 12/28/21 00:35: Lactic Acid 2.0 12/28/21 01:40: Troponin I High Sens 6 12/28/21 04:29: WBC 16.0 H, RBC 3.86 L, Hgb 11.7 L, Hct 35.8 L, MCV 92.7, MCH 30.3, MCHC 32.7, RDW Std Deviation 42.4, RDW Coeff of Jenna 12.6, Plt Count 188, MPV 9.7, Immature Gran % (Auto) 0.500, Neut % (Auto) 87.3 H, Lymph % (Auto) 4.1 L, Oliver % (Auto) 7.8, Eos % (Auto) 0.1, Baso % (Auto) 0.2, Absolute Neuts (auto) 13.9 H, Absolute Lymphs (auto) 0.65 L, Nucleated RBC % 0 12/28/21 04:29: Sodium 139, Potassium 4.0, Chloride 104, Carbon Dioxide 24.0, Anion Gap 11, BUN 22 H, Creatinine 0.89, Estim Creat Clear Calc 46.88, Est GFR (MDRD) Af Amer 79, Est GFR (MDRD) Non-Af 66, BUN/Creatinine Ratio 24.8 H, Glucose 182 H, Calcium 8.8 12/28/21 05:20: Lactic Acid 2.8 H* Micro: Microbiology 12/28/21 01:30 Urine, Clean Catch Legionella Antigen - Final 12/28/21 01:30 Urine, Clean Catch Streptococcus pneumoniae Antigen (M - Final 12/28/21 01:15 Sputum, Expectorated/Coughed Gram Stain - Preliminary 12/27/21 23:30 Nasal Secretion SARS-CoV-2 & FLU Antigen (Rapid) - Final Radiography Diagnostic Testing: Radiology Impression Chest X-Ray 12/27/21 23:04 IMPRESSION: No acute cardiopulmonary disease. Electronically Signed: José Pierce MD at 23:36 EDT Reading Location ID and State: [address] [place] [address] Tel , Service support , Physical Exam HEENT head/scalp atraumatic Head and Scalp: normocephalic Resp normal respiratory effort, no retractions, no use of accessory muscles and clear to auscultation bilaterally Cardio regular rate, regular rhythm, S1 normal heart sound and S2 normal heart sound GI normal to inspection, nondistended, normoactive bowel sounds, soft to palpation, non-tender and non-distended Extremity General Extremity: edema Assessment & Plan Assessment/Plan (1) Community acquired pneumonia: QUALIFIERS: Laterality: unspecified laterality Qualified Code(s): J18.9 - Pneumonia, unspecified organism PLAN: 1. possible pneumococcal pneumonia * Chest x-ray unremarkable. * SARS-CoV-2 and rapid flu antigen was negative. * Sputum gram stain and culture pending * strep and legionella antigen pending * Blood culture x2 ordered emergency department; follow. * azithromycin and ceftriaxone * Mucinex ordered. * Albuterol as needed 2. Chronic heart failure with preserved ejection fraction * Echocardiogram on 07/27/2021 showed estimated ejection fraction of 55 to 60%. No hemodynamically significant valvular abnormalities were noted. * Echocardiogram on 11/25/2020 showed stage I diastolic dysfunction. * BNP on 12/27/2021 was 91.4 and then 85.4. With low BNP and outs as a patient of CHF. * Start IV furosemide. 3. Hypertension * Blood pressure is not within goal * Cardizem and Lasix continued * Trend blood pressure and adjust blood pressure medications. 4.CKD stage II * Stable * Trend BMP 5.Debility * PT and OT to work with patient for strengthening balance training * Case management consult for disposition. 6.DVT prophylaxis * Not indicated since patient is on Eliquis and Eliquis has been continued Charges/Coding Visit Charges Inpatient E&M: 87836 Subs Hosp L2
[2021-12-28] MEDS: Calcium Carb/Vitamin D 1 TABLET Tablet 2 TABLET PO (08:27)
[2021-12-28] MEDS: Potassium Chloride Oral Tablet 10 MEQ PO (08:27)
[2021-12-28 08:34] LABS: Procalcitonin 0.04 ng/mL (0.00-0.09)
[2021-12-28] MEDS: Furosemide 40 MG/4 ML Vial IV ×2 (09:58→17:53)
[2021-12-28] MEDS: dilTIAZem CD 120 MG Capsule PO ×2 (09:58→21:57)
[2021-12-28] MEDS: Sotalol Hydrochloride 80 MG Tablet PO ×2 (09:58→21:57)
[2021-12-28] MEDS: APIXABAN 5 MG TABLET PO ×2 (09:59→21:56)
[2021-12-28] MEDS: Anastrozole 1 MG TABLET PO (09:59)
[2021-12-28] MEDS: Pantoprazole Sodium 20 MG Tablet PO (09:59)
[2021-12-28] MEDS: Menthol/Lanolin/Calamine/Znox 113 GM Tube 1 APPLIC TOPICAL ×2 (10:00→23:03)
[2021-12-28 10:16] LABS: Lactic Acid 1.3 mmol/L (0.4-1.9)
--- NOTE | 2021-12-28 13:32 | CPS ---
started by nursing
--- NOTE | 2021-12-28 14:43 | CASEMGMT ---
Social Work Consult: alf placement. Referral source: Dr. Robins (hospitalist) Met with patient in room. Introduced self and administrator social welfare role. Patient agreeable to speak with this administrator social welfare. Patient reports that prior level of functioning was independent and living alone. This administrator social welfare broached conversation of correction placement. Patient is agreeable to correction placement. This administrator social welfare provided patient with list of in-network long term homes that are local to patient geographical region. Patient request for referral to be sent to [facility]. Patient does not have a second option. This administrator social welfare encouraged patient to look over list and consider a second option in the event that [facility] does not accept patient. This administrator social welfare inquired as to who patient would like this administrator social welfare to contact in regards to patient plan of care. Patient states I am not sure. This administrator social welfare noting that patient two sons are listed on chart. Patient states I will have to think about it. Telephone call to [facility]. Voicemail left. Clinical information faxed. PLAN: [facility] pending acceptance and then pre-cert. Diaen Velasquez MSW, KUSHAL-S
--- NOTE | 2021-12-28 14:57 | CASEMGMT ---
Social Work Telephone call from [facility]. Flora reports to not have any open beds. This social studies department chair back to speak with patient in room. Patient unsure about second option but continues to talk about how wonderful [facility] is. This social studies department chair inquired if patient is agreeable to this social studies department chair sending referral to [facility]. Patient is agreeable to referral being sent but request for social work to follow up with patient in the morning to confirm that patient is okay with [facility] due to the distance. Patient reports to be concerned about being away from family. Patient then states that all of patient family lives hours away. Active support and listening provided. Telephone call to [facility]. Qian reports to have an open bed and accepts patient insurance. Clinical information faxed. PLAN: skilled. Anil Pending acceptance, precert and patient finalizing plan. Diane NELSON, KUSHAL-S
[2021-12-28] MEDS: Albuterol 2.5 MG/3 ML VIAL.NEB. INHALATION ×2 (15:24→22:01)
[2021-12-28] MEDS: Pravastatin 20 MG Tablet PO (21:58)
[2021-12-28] MEDS: Ceftriaxone 1 GM/50 ML BAG IV (23:04)
[2021-12-29] VITALS (12 sets, daily range): BP systolic 118–132; BP diastolic 48–90; PULSE 62–89; RESP 17–20; TEMP 36.7–37.2; O2SAT 90–98
[2021-12-29 04:47] LABS: Absolute Lymphocyte Count 1.14 X10^3/uL (0.83-4.51); Absolute Neutrophil Count 7.6 X10^3/uL (2.0-7.7); Basophil# 0.03 X10^3/uL; Basophil% 0.3 % (0-1); Eosinophil# 0.34 X10^3/uL; Eosinophils% 3.4 % (0-5); Hemoglobin 10.7 g/dL (12.0-15.0); Lymphocyte # 1.14 X10^3/ul (0.83-4.51); Lymphocyte % 11.4 % (19-41); Mean Corp Hgb Conc 32.4 g/dL (32-36); Mean Corpuscular Hgb 29.8 pg (27.0-32.0); Mean Corpuscular Volume 91.9 fL (81-99); Mean Platelet Vol. 9.2 fl (6.2-12.0); Monocyte# 0.87 X10^3/uL; Monocyte% 8.7 % (0-10); NRBC Flagged by Analyzer 0 % (0-5); Neutrophil # 7.55 X10^3/uL (2.7-7.7); Neutrophil % 75.9 % (47-70); Platelet Count 195 K/mm3 (150-450); RBC Distribution Width CV 12.6 % (11.6-14.6); RBC Distribution Width SD 42.2 fl (35.1-43.9); Red Blood Count 3.59 M/mm3 (4.2-5.4)
[2021-12-29 05:08] LABS: BUN 18 mg/dL (7-18); Creatinine, Serum 0.76 mg/dL (0.55-1.02); Estimated Creatinine Clearance 41.72 ml/min; Glucose 127 mg/dL (74-106)
[2021-12-29 05:09] LABS: Anion Gap 4 (5-15); BUN/Creat Ratio 23.6 RATIO (10-20); Calcium,Total 7.8 mg/dL (8.5-10.1); Chloride 101 mmol/L (98-107); EST Glomerular Filtration Rate 78 mL/min (>60); Est Glom Filt Rate - Afr Amer 94 mL/min (>60); Potassium 3.2 mmol/L (3.5-5.1); Sodium Level 138 mmol/L (136-145)
--- NOTE | 2021-12-29 07:02 | PN.HOSP_ITS ---
Subjective Subjective Breathing better. Wants to go home because she has $20,000 dollars of pearson lying around and does not have her clothes here. Objective Data Objective Data Vital Signs: Vital Signs Temp Pulse Resp BP Pulse Ox 37.1 C 62 18 121/48 H 95 12/29/21 04:00 12/29/21 04:00 12/29/21 04:00 12/29/21 04:00 12/29/21 04:00 Oxygen Flow Rate (L/min) 2 Oxygen Delivery Method Nasal Cannula Weight: 75.4 kg Body Mass Index (BMI) 27.3 Intake & Output: Intake and Output for Last 24 Hours 12/27/21 12/28/21 12/29/21 23:59 23:59 23:59 Intake Total 1060 / 1060 Output Total 750 / 1250 750 / 750 Balance 310 / -190 -750 / -750 Medical Nutrition Assessment Dietitian: Malnutrition Criteria Met Start: 12/28/21 14:49 Freq: Status: Active Protocol: Document 12/28/21 14:51 LO (Rec: 12/28/21 14:51 [id number]) Nutrition Malnutrition Evidence of Malnutrition Exists Yes Malnutrition (severe): Chronic Evidenced By Suboptimal Energy Intake ( Severe),Weight Loss (Severe), Physical Changes (Moderate), Physical Changes (Severe) Clinical Problem Chronic Disease or Condition Related Malnutrition Etiology related to suboptimal appetite Signs/Symptoms as evidenced by 14% weight loss in 6 months, <75% PO intake of estimated energy needs for >1 month, and moderate temporal muscle loss/ severe orbital fat loss Status Active Problem Recommendation Dietitian Recommendations/Changes Cardiac - Heart Healthy diet 1500mL fluid restriction per MD. RD feels pt would benefit from an appetite stimulant if appropriate. Lab / Micro Data Result Diagrams: 12/29/21 04:27 12/29/21 04:27 Labs: Laboratory Results - last 24 hr 12/28/21 04:29: Procalcitonin 0.04 12/28/21 09:35: Lactic Acid 1.3 12/29/21 04:27: WBC 10.0, RBC 3.59 L, Hgb 10.7 L, Hct 33.0 L, MCV 91.9, MCH 29.8, MCHC 32.4, RDW Std Deviation 42.2, RDW Coeff of Jenna 12.6, Plt Count 195, MPV 9.2, Immature Gran % (Auto) 0.300, Neut % (Auto) 75.9 H, Lymph % (Auto) 11.4 L, P[place] % (Auto) 8.7, Eos % (Auto) 3.4, Baso % (Auto) 0.3, Absolute Neuts (auto) 7.6, Absolute Lymphs (auto) 1.14, Nucleated RBC % 0 12/29/21 04:27: Sodium 138, Potassium 3.2 L, Chloride 101, Carbon Dioxide 33.0 H , Anion Gap 4 L, BUN 18, Creatinine 0.76, Estim Creat Clear Calc 41.72, Est GFR (MDRD) Af Amer 94, Est GFR (MDRD) Non-Af 78, BUN/Creatinine Ratio 23.6 H, Glucose 127 H, Calcium 7.8 L Micro: Microbiology 12/28/21 01:15 Sputum, Expectorated/Coughed Gram Stain - Final 12/28/21 01:30 Urine, Clean Catch Legionella Antigen - Final 12/28/21 01:30 Urine, Clean Catch Streptococcus pneumoniae Antigen (M - Final 12/27/21 23:30 Nasal Secretion SARS-CoV-2 & FLU Antigen (Rapid) - Final Physical Exam Const alert and no apparent distress Resp normal respiratory effort, no retractions, no use of accessory muscles and clear to auscultation bilaterally Cardio regular rate, regular rhythm, S1 normal heart sound and S2 normal heart sound GI normal to inspection, nondistended, normoactive bowel sounds, soft to palpation, non-tender and non-distended Extremity General Extremity: edema bilateral (improved from 12/28) Assessment & Plan Assessment/Plan (1) Community acquired pneumonia: QUALIFIERS: Laterality: unspecified laterality Qualified Code(s): J18.9 - Pneumonia, unspecified organism (2) Acute on chronic heart failure with preserved ejection fraction (HFpEF): PLAN: 1. possible pneumococcal pneumonia * Chest x-ray unremarkable. * SARS-CoV-2 and rapid flu antigen was negative. * Sputum gram stain and culture PENDING * strep and legionella antigen negative * Blood culture x2 PENDING * azithromycin and ceftriaxone * Mucinex ordered. * Albuterol as needed 2. Acute on Chronic heart failure with preserved ejection fraction * Echocardiogram on 07/27/2021 showed estimated ejection fraction of 55 to 60%. No hemodynamically significant valvular abnormalities were noted. * Echocardiogram on 11/25/2020 showed stage I diastolic dysfunction. * BNP on 12/27/2021 was 91.4 and then 85.4. With low BNP and outs as a patient of CHF. * change furosemide to PO * Weight down 3. Hypertension * stable * Cardizem and Lasix continued * Trend blood pressure and adjust blood pressure medications. 4.CKD stage II * Stable * Trend BMP 5.Debility * PT and OT to work with patient for strengthening balance training * Case management consult for disposition. 6. Hypokalemia * due to diuresis * increase potassium replacement from 10 to 40. * check magnesium level DVT prophylaxis * Not indicated since patient is on Eliquis and Eliquis has been continued Disposition: To be determined. Awaiting on precertification. Unlikely to occur over the weekend. Than 35 minutes of which greater than 50% of time was counseling patient at bedside about her debility and need for additional therapy services. Patient states that she lives by herself and cannot stay with her sons at this time. I told her that with her weakness, that her returning home would not be a good idea and advised snf facility. Patient state that she does not want to go to [facility] due to prior bad experiences that she experienced there. Patient did reluctantly agreed to going to a SNF. Charges/Coding Visit Charges Inpatient E&M: 79876 [facility] Hosp L3
[2021-12-29] MEDS: Albuterol 2.5 MG/3 ML VIAL.NEB. INHALATION ×5 (07:25→22:46)
[2021-12-29] MEDS: Sotalol Hydrochloride 80 MG Tablet PO ×2 (08:14→21:16)
[2021-12-29] MEDS: Pantoprazole Sodium 20 MG Tablet PO (08:14)
[2021-12-29] MEDS: Calcium Carb/Vitamin D 1 TABLET Tablet 2 TABLET PO (08:14)
[2021-12-29] MEDS: guaiFENesin 1,200 MG Tablet 1200 MG PO ×2 (08:14→21:17)
[2021-12-29] MEDS: APIXABAN 5 MG TABLET PO ×2 (08:14→21:16)
[2021-12-29] MEDS: Anastrozole 1 MG TABLET PO (08:14)
[2021-12-29] MEDS: dilTIAZem CD 120 MG Capsule PO ×2 (08:14→21:17)
[2021-12-29] MEDS: Furosemide 40 MG/4 ML Vial IV (08:15)
[2021-12-29] MEDS: Menthol/Lanolin/Calamine/Znox 113 GM Tube 1 APPLIC TOPICAL ×2 (08:15→21:17)
[2021-12-29] MEDS: Potassium Chloride Oral Tablet 20 MEQ 40 MEQ PO (08:19)
--- NOTE | 2021-12-29 10:20 | CASEMGMT ---
Addendum entered by Heena Brandt 12/29/21 10:42: SW faxed referral to [facility]. Pt's son then called in again, SW explained pt does not want to go to [facility], but is now agreeable to [facility] and [facility] will have a bed. Son is also in agreement with this. SW explained if [facility] does take her they will likely not get precert until Saturday so pt would be here through the weekend. Son states understanding and is agreeable. SW also spoke w/[facility], let them know that for now we are trying a facility in [place] and will call back if pt is not accepted. SW will continue to follow. ANNA Vazquez Original Note: SW spoke w/pt this morning in regard to going to a senior living. Pt spoke about losing her 1.5 years ago, and that her family can't take her or bring her clothes. We spoke about whether or not these were valid reasons to not go to the senior living if she cannot manage at home. We spoke about [facility], pt still not sure if she is agreeable to go, and again spoke about family not being able to bring her clothing. SW explained we can see how it goes with therapy today to see if she is strong enough to go home or not. [facility] and said they would have a bed and can review clinicals for pt. Pt's son Yannick called in and asked about pt going to [facility] which is closer to where he lives. SW inquired if he helps with decisions, he states, I'm her oldest boy. SW asked about the other son listed, he states he helps pt during the week, and son Israel helps on the weekends. SW was not able to get clarification on if he helps pt with decision making. SW explained will check about [facility] and let him know. SW spoke w/pt about [facility], she states she does not want to go there, it's too far away. SW asked if her children help her with decisions, pt states she makes her own decisions. SW spoke w/pt about [facility]. Pt would be agreeable to either, with a preference for [facility]. Pt agreeable to SW calling son to let him know she does not want to go to [facility]. SW will follow up w/referral to [facility] shortly. ANNA Vazquez
--- NOTE | 2021-12-29 12:32 | CASEMGMT ---
Social Work [facility] can take pt, will start precert. Celia states they do not anticipate getting it back until Saturday. SW let pt know [facility] can take her but it will likely be Saturday. Pt states understanding. SW inquiref if it would be okay to call her son to let him know, she states she is talking to him now and he's coming up and she will let him know. Plan: [facility], pending precert, likely Saturday. ANNA Vazquez
[2021-12-29] MEDS: Pravastatin 20 MG Tablet PO (21:17)
[2021-12-29] MEDS: 0.9% Saline Lock 10 ML Syringe IV (21:32)
[2021-12-29] MEDS: Zolpidem Tartrate 5 MG Tablet PO (22:33)
[2021-12-29] MEDS: Ceftriaxone 1 GM/50 ML BAG IV (22:34)
[2021-12-29] MEDS: HYDROcodone Bitartrate/Apap 5/325 Tablet PO (22:34)
[2021-12-30 03:30] VITALS: BP 144/71; PULSE 67; RESP 16; TEMP 36.6; O2SAT 97
[2021-12-30] MEDS: Senna/Docusate Sodium 1 Tablet 2 TABLET PO (05:00)
[2021-12-30 06:27] LABS: Anion Gap 4 (5-15); BUN 17 mg/dL (7-18); BUN/Creat Ratio 20.4 RATIO (10-20); Calcium,Total 7.8 mg/dL (8.5-10.1); Chloride 101 mmol/L (98-107); Creatinine, Serum 0.83 mg/dL (0.55-1.02); EST Glomerular Filtration Rate 71 mL/min (>60); Est Glom Filt Rate - Afr Amer 85 mL/min (>60); Estimated Creatinine Clearance 50.27 ml/min; Glucose 163 mg/dL (74-106); Potassium 3.8 mmol/L (3.5-5.1); Sodium Level 136 mmol/L (136-145)
--- NOTE | 2021-12-30 06:52 | PN.HOSP_ITS ---
Subjective Subjective Hearing wheezing. No BM since Saturday. Objective Data Objective Data Vital Signs: Vital Signs Temp Pulse Resp BP Pulse Ox 36.6 C 67 16 144/71 H 97 12/30/21 03:30 12/30/21 03:30 12/30/21 03:30 12/30/21 03:30 12/30/21 03:30 Oxygen Flow Rate (L/min) 2 Oxygen Delivery Method Nasal Cannula Weight: 75.6 kg Body Mass Index (BMI) 27.3 Intake & Output: Intake and Output for Last 24 Hours 12/28/21 12/29/21 12/30/21 23:59 23:59 23:59 Intake Total 1060 / 1060 375 / 375 50 / 50 Output Total 750 / 1250 1350 / 1650 300 / 300 Balance 310 / -190 -975 / -1275 -250 / -250 Medical Nutrition Assessment Dietitian: Malnutrition Criteria Met Start: 12/28/21 14:49 Freq: Status: Active Protocol: Document 12/28/21 14:51 [email or web address] (Rec: 12/28/21 14:51 [id number]) Nutrition Malnutrition Evidence of Malnutrition Exists Yes Malnutrition (severe): Chronic Evidenced By Suboptimal Energy Intake ( Severe),Weight Loss (Severe), Physical Changes (Moderate), Physical Changes (Severe) Clinical Problem Chronic Disease or Condition Related Malnutrition Etiology related to suboptimal appetite Signs/Symptoms as evidenced by 14% weight loss in 6 months, <75% PO intake of estimated energy needs for >1 month, and moderate temporal muscle loss/ severe orbital fat loss Status Active Problem Recommendation Dietitian Recommendations/Changes Cardiac - Heart Healthy diet 1500mL fluid restriction per MD. RD feels pt would benefit from an appetite stimulant if appropriate. Lab / Micro Data Result Diagrams: 12/29/21 04:27 12/30/21 05:18 Labs: Laboratory Results - last 24 hr 12/29/21 04:24: Magnesium 2.0 12/30/21 05:18: Sodium 136, Potassium 3.8, Chloride 101, Carbon Dioxide 31.0, Anion Gap 4 L, BUN 17, Creatinine 0.83, Estim Creat Clear Calc 50.27, Est GFR (MDRD) Af Amer 85, Est GFR (MDRD) Non-Af 71, BUN/Creatinine Ratio 20.4 H, Glucose 163 H, Calcium 7.8 L Micro: Microbiology 12/28/21 01:15 Sputum, Expectorated/Coughed Gram Stain - Final 12/28/21 01:15 Sputum, Expectorated/Coughed Respiratory Culture - Preliminary Haemophilus spp. 12/28/21 01:30 Urine, Clean Catch Legionella Antigen - Final 12/28/21 01:30 Urine, Clean Catch Streptococcus pneumoniae Antigen (M - Final 12/27/21 23:30 Nasal Secretion SARS-CoV-2 & FLU Antigen (Rapid) - Final Physical Exam Const alert and no apparent distress Resp normal respiratory effort, no retractions, no use of accessory muscles and clear to auscultation bilaterally Cardio regular rate, regular rhythm, S1 normal heart sound and S2 normal heart sound GI normal to inspection, nondistended, normoactive bowel sounds, soft to palpation and non-tender Extremity normal to inspection Neuro Sensorium / Orientation: awake and alert Assessment & Plan Assessment/Plan (1) Community acquired pneumonia: QUALIFIERS: Laterality: unspecified laterality Qualified Code(s): J18.9 - Pneumonia, unspecified organism (2) Acute on chronic heart failure with preserved ejection fraction (HFpEF): (3) Haemophilus influenzae pneumonia: PLAN: 1. H. influenza pneumonia * confirmed on SCx from 12/28 * SARS-CoV-2 and rapid flu antigen was negative. * strep and legionella antigen negative * Blood culture x2 PENDING, but so far negative. * azithromycin and ceftriaxone, change to Augmentin through 01/04 * Mucinex ordered. * Albuterol as needed * still w wheezing, add prednisone burst. 2. Acute on Chronic heart failure with preserved ejection fraction * Echocardiogram on 07/27/2021 showed estimated ejection fraction of 55 to 60%. No hemodynamically significant valvular abnormalities were noted. * Echocardiogram on 11/25/2020 showed stage I diastolic dysfunction. * BNP on 12/27/2021 was 91.4 and then 85.4. With low BNP and outs as a patient of CHF. * change furosemide to PO * Weight down 3. Hypertension * stable * Cardizem and Lasix continued * Trend blood pressure and adjust blood pressure medications. 4.CKD stage II * Stable * Trend BMP 5.Debility * PT and OT to work with patient for strengthening balance training * SNF on discharge. 6. Hypokalemia * due to diuresis * increase potassium replacement from 10 to 40. * check magnesium level DVT prophylaxis * Not indicated since patient is on Eliquis and Eliquis has been continued Disposition: To be determined. Eventually to SNF, but awaiting on precertification. Unlikely to occur over the weekend. Constipation: add miralax and x1 dulcolax. Charges/Coding Visit Charges Inpatient E&M: 71003 Subs Hosp L2
[2021-12-30 07:12] VITALS: PULSE 70; RESP 20; O2SAT 98
[2021-12-30] MEDS: Albuterol 2.5 MG/3 ML VIAL.NEB. INHALATION ×2 (07:12→20:20)
--- NOTE | 2021-12-30 07:37 | CASEMGMT ---
Social Work SW received a message from Darling at [facility] stating pt is on the waiver program. Nubia Still is her patient case manager, . Pt does not have any services at present, as per the message Darling is unclear as to why, it appears they ended in July. Darling asked pt's discharge instructions be faxed to Nubia at [phone] upon discharge. ANNA Vazquez
[2021-12-30 08:07] VITALS: BP 137/61; PULSE 71; RESP 17; TEMP 37.3; O2SAT 95
[2021-12-30] MEDS: guaiFENesin 1,200 MG Tablet 1200 MG PO ×2 (08:18→21:15)
[2021-12-30] MEDS: Potassium Chloride Oral Tablet 20 MEQ 40 MEQ PO (08:18)
[2021-12-30] MEDS: Calcium Carb/Vitamin D 1 TABLET Tablet 2 TABLET PO (08:18)
[2021-12-30] MEDS: Sotalol Hydrochloride 80 MG Tablet PO ×2 (08:18→21:15)
[2021-12-30] MEDS: Pantoprazole Sodium 20 MG Tablet PO (08:18)
[2021-12-30] MEDS: dilTIAZem CD 120 MG Capsule PO ×2 (08:18→21:15)
[2021-12-30] MEDS: Furosemide 40 MG Tablet PO (08:18)
[2021-12-30] MEDS: APIXABAN 5 MG TABLET PO ×2 (08:18→21:15)
[2021-12-30] MEDS: Anastrozole 1 MG TABLET PO (08:19)
[2021-12-30] MEDS: Menthol/Lanolin/Calamine/Znox 113 GM Tube 1 APPLIC TOPICAL ×2 (08:22→21:15)
[2021-12-30] MEDS: predniSONE 20 MG Tablet 40 MG PO (10:22)
[2021-12-30] MEDS: Bisacodyl 5 MG Tablet 10 MG PO (10:22)
[2021-12-30] MEDS: Polyethylene Glycol 3350 17 GM PACKET PO (10:22)
[2021-12-30] MEDS: Acetaminophen 325 MG Tablet 650 MG PO (10:23)
[2021-12-30 16:30] VITALS: BP 129/67; PULSE 73; RESP 17; TEMP 36.4; O2SAT 94
[2021-12-30 20:20] VITALS: PULSE 80; RESP 20
[2021-12-30 21:10] VITALS: BP 131/63; PULSE 79; RESP 20; TEMP 36.8; O2SAT 97
[2021-12-30] MEDS: Pravastatin 20 MG Tablet PO (21:15)
[2021-12-30] MEDS: Amox/Clavulanate 875 MG Tablet PO (21:15)
[2021-12-30] MEDS: HYDROcodone Bitartrate/Apap 5/325 Tablet PO (23:05)
[2021-12-30] MEDS: Zolpidem Tartrate 5 MG Tablet PO (23:06)
[2021-12-31] VITALS (7 sets, daily range): BP systolic 124–134; BP diastolic 59–66; PULSE 62–80; RESP 17–20; TEMP 36.4–37.4; O2SAT 94–98
[2021-12-31] MEDS: Albuterol 2.5 MG/3 ML VIAL.NEB. INHALATION ×3 (07:26→19:29)
[2021-12-31] MEDS: Potassium Chloride Oral Tablet 20 MEQ 40 MEQ PO (07:41)
[2021-12-31] MEDS: predniSONE 20 MG Tablet 40 MG PO (07:42)
[2021-12-31] MEDS: Calcium Carb/Vitamin D 1 TABLET Tablet 2 TABLET PO (07:42)
[2021-12-31] MEDS: Amox/Clavulanate 875 MG Tablet PO ×2 (07:44→22:40)
[2021-12-31] MEDS: Anastrozole 1 MG TABLET PO (07:44)
[2021-12-31] MEDS: dilTIAZem CD 120 MG Capsule PO ×2 (07:45→22:40)
[2021-12-31] MEDS: Sotalol Hydrochloride 80 MG Tablet PO ×2 (07:45→22:39)
[2021-12-31] MEDS: APIXABAN 5 MG TABLET PO ×2 (07:45→22:40)
[2021-12-31] MEDS: Furosemide 40 MG Tablet PO (07:46)
[2021-12-31] MEDS: guaiFENesin 1,200 MG Tablet 1200 MG PO ×2 (07:46→22:40)
[2021-12-31] MEDS: Pantoprazole Sodium 20 MG Tablet PO (07:47)
[2021-12-31] MEDS: Menthol/Lanolin/Calamine/Znox 113 GM Tube 1 APPLIC TOPICAL ×2 (07:48→22:44)
--- NOTE | 2021-12-31 10:08 | PN.HOSP_ITS ---
Subjective Subjective Patient is a 76-year-old white female who presented to the emergency department on 12/27/2021 with shortness of breath and weight gain. It appears as if we have treated her for both acute exacerbation of CHF with a mild elevation in BNP on admission as well as haemophilus influenza pneumonia. Patient had been initi ally treated with a azithromycin and ceftriaxone but has been's recently switched to Augmentin which she is to complete through 01/04. Patient states she had an episode this morning of some shortness of breath but that resolved with a breathing treatment. She is extremely anxious and I suspect that this probably contributes into her shortness of breath as well. She never had any significant desaturations and oxygen is 94 to 98% on 2 L nasal cannula. She has intermittent cough that is productive. Patient has been accepted at [facility] and pre-CERT is currently pending-patient is acceptable to this but states she is only going to stay for a week to appease her children. Objective Data Objective Data Vital Signs: Vital Signs Temp Pulse Resp BP Pulse Ox 99.3 F H 66 18 124/59 H 94 12/31/21 07:56 12/31/21 07:56 12/31/21 07:56 12/31/21 07:56 12/31/21 07:56 Oxygen Flow Rate (L/min) 2 Oxygen Delivery Method Nasal Cannula Weight: 74.7 kg Body Mass Index (BMI) 27.3 Intake & Output: Intake and Output for Last 24 Hours 12/29/21 12/30/21 12/31/21 23:59 23:59 23:59 Intake Total 375 / 375 50 / 390 547 / 547 Output Total 1350 / 1450 1200 / 1300 100 / 100 Balance -975 / -1075 -1150 / -910 447 / 447 Medical Nutrition Assessment Dietitian: Malnutrition Criteria Met Start: 12/28/21 14:49 Freq: Status: Active Protocol: Document 12/30/21 10:26 AG (Rec: 12/30/21 10:26 AG [id number]) Nutrition Malnutrition Evidence of Malnutrition Exists Yes Malnutrition (severe): Chronic Evidenced By Suboptimal Energy Intake ( Severe),Weight Loss (Severe), Physical Changes (Moderate), Physical Changes (Severe) Clinical Problem Chronic Disease or Condition Related Malnutrition Etiology severe, chronic malnutrition related to suboptimal appetite Signs/Symptoms as evidenced by unintentional 14% weight loss in 6 months, < 75% PO intake of estimated energy needs for >1 month, and moderate temporal muscle loss /severe orbital fat loss per physical exam Status Active Problem Recommendation Dietitian Recommendations/Changes will liberalize diet to regular, no added salt given poor PO intake, malnutrition. Pt declines supplements at this time. May benefit from appetite stimulant. Lab / Micro Data Result Diagrams: 12/29/21 04:27 12/30/21 05:18 Micro: Microbiology 12/28/21 00:35 Blood Culture (Wb) - Anticubital Left Blood Culture - Preliminary No growth in 48 hours. 12/28/21 00:40 Blood Culture (Wb) - Left Hand Blood Culture - Preliminary No growth in 48 hours. 12/28/21 01:15 Sputum, Expectorated/Coughed Gram Stain - Final 12/28/21 01:15 Sputum, Expectorated/Coughed Respiratory Culture - Final Haemophilus influenzae 12/28/21 01:30 Urine, Clean Catch Legionella Antigen - Final 12/28/21 01:30 Urine, Clean Catch Streptococcus pneumoniae Antigen (M - Final 12/27/21 23:30 Nasal Secretion SARS-CoV-2 & FLU Antigen (Rapid) - Final Physical Exam Const alert and oriented x3 Constitutional Narrative: Older white female sitting up in a chair at the bedside, watching television, appears comfortable and nontoxic, currently with 2 L nasal cannula in place Exam Limitations: no limitations Nutritional Appearance: overweight HEENT head/scalp atraumatic and moist oral mucous membranes HEENT Narrative: Mallampati 2, no thrush Head and Scalp: normocephalic Resp normal respiratory effort, no retractions and no use of accessory muscles Resp Narrative: Patient with end expiratory wheezes with mouth breathing but no wheezes with nasal breathing-suspect upper airway wheeze, no other adventitious sounds noted Auscultation: wheezes; Negative for crackles, rales or rhonchi Cardio regular rate, regular rhythm, S1 normal heart sound, S2 normal heart sound, no murmurs, no rub, no gallops, no clicks and no JVD GI normal to inspection, nondistended, normoactive bowel sounds, soft to palpation, non-tender and non-distended Extremity no clubbing, cyanosis or edema Peripheral Pulses: Yes pulses 2+ throughout Neuro oriented x3, moves all extremities and no focal motor deficits Sensorium / Orientation: awake and alert Psych Mood & Affect: anxious Assessment & Plan Assessment/Plan (1) Haemophilus influenzae pneumonia: (2) Acute on chronic heart failure with preserved ejection fraction (HFpEF): (3) Hypokalemia: (4) Lactic acidosis: PLAN: Haemophilus influenza pneumonia -Confirmed on sputum culture from 12/28/2021 -COVID-19 and rapid flu were negative -Strep pneumo and Legionella antigens are negative -Blood cultures are negative -Patient had been treated with azithromycin and ceftriaxone but was changed to Augmentin on 12/30/2021 -Will require oral antibiotics through 01/04/2022 -Continue Mucinex -Continue albuterol -Continue prednisone burst -Wheezing predominantly sounds upper airway as I can antonieta the wheezing with nasal breathing rather than mouth breathing on exam -We will need ambulatory pulse ox on the day of discharge Acute on chronic heart failure with preserved ejection fraction-diastolic -Echocardiogram from 07/27/2021 showed an EF of 55 to 60% with no hemodynamic significant valvular abnormalities -Echo from 11/25/2020 shows diastolic dysfunction-stage I -BNP was 91.4 on admission and decreased with treatment -Continue oral Lasix orally--> 40 mg daily--> home dose is 20 mg daily -Patient is down 1.3 L for hospitalization -Weight is down approximately 1.5 kg Hypokalemia -Resolved -Decrease scheduled potassium to home dosing of 10 mill equivalents daily Lactic acidosis -Resolved -Was mild at 2.8 on admission -Likely related to acute pneumonia -No sepsis Constipation -Resolved as patient had 2 bowel movements yesterday -Continue MiraLAX Paroxysmal atrial fibrillation -Continue Eliquis -Continue sotalol -Continue Cardizem Hypertension -Continue home diltiazem Hyperlipidemia -Continue home pravastatin GERD -Continue home omeprazole History of breast cancer -Continue home anastrozole Osteoporosis -Continue home calcium supplementation -Patient getting Prolia every 6 months CKD stage II -Serum creatinine has been stable -We will trend BMP in the a.m. with diuretic use as this is higher than home dose DVT prophylaxis -Continue home Eliquis CODE STATUS -Full code Charges/Coding Visit Charges Inpatient E&M: 31350 Subs Hosp L2
[2021-12-31] MEDS: Acetaminophen 325 MG Tablet 650 MG PO (15:22)
[2021-12-31] MEDS: HYDROcodone Bitartrate/Apap 5/325 Tablet PO (22:39)
[2021-12-31] MEDS: Zolpidem Tartrate 5 MG Tablet PO (22:40)
[2021-12-31] MEDS: Pravastatin 20 MG Tablet PO (22:40)
[2022-01-01] VITALS (10 sets, daily range): BP systolic 137–158; BP diastolic 57–80; PULSE 66–75; RESP 16–18; TEMP 36.6–36.7; O2SAT 93–98
[2022-01-01 04:56] LABS: Absolute Lymphocyte Count 1.07 X10^3/uL (0.83-4.51); Absolute Neutrophil Count 7.3 X10^3/uL (2.0-7.7); Basophil# 0.02 X10^3/uL; Basophil% 0.2 % (0-1); Eosinophil# 0.04 X10^3/uL; Eosinophils% 0.4 % (0-5); Hematocrit 33.7 % (37-47); Hemoglobin 10.8 g/dL (12.0-15.0); Lymphocyte # 1.07 X10^3/ul (0.83-4.51); Lymphocyte % 11.5 % (19-41); Mean Corpuscular Hgb 29.8 pg (27.0-32.0); Mean Corpuscular Volume 93.1 fL (81-99); Mean Platelet Vol. 9.4 fl (6.2-12.0); Monocyte# 0.85 X10^3/uL; Monocyte% 9.1 % (0-10); NRBC Flagged by Analyzer 0 % (0-5); Neutrophil # 7.28 X10^3/uL (2.7-7.7); Neutrophil % 78.4 % (47-70); Platelet Count 257 K/mm3 (150-450); RBC Distribution Width CV 12.1 % (11.6-14.6); RBC Distribution Width SD 41.7 fl (35.1-43.9); Red Blood Count 3.62 M/mm3 (4.2-5.4); White Blood Count 9.3 K/mm3 (4.4-11.0)
[2022-01-01 05:32] LABS: Anion Gap 2 (5-15); BUN 23 mg/dL (7-18); BUN/Creat Ratio 28.5 RATIO (10-20); Chloride 105 mmol/L (98-107); Creatinine, Serum 0.81 mg/dL (0.55-1.02); EST Glomerular Filtration Rate 73 mL/min (>60); Est Glom Filt Rate - Afr Amer 88 mL/min (>60); Estimated Creatinine Clearance 51.51 ml/min; Glucose 167 mg/dL (74-106); Potassium 4.9 mmol/L (3.5-5.1); Sodium Level 139 mmol/L (136-145)
[2022-01-01] MEDS: predniSONE 20 MG Tablet 40 MG PO (08:10)
[2022-01-01] MEDS: Amox/Clavulanate 875 MG Tablet PO ×2 (08:10→21:23)
[2022-01-01] MEDS: APIXABAN 5 MG TABLET PO ×2 (08:10→21:24)
[2022-01-01] MEDS: Pantoprazole Sodium 20 MG Tablet PO (08:10)
[2022-01-01] MEDS: Furosemide 40 MG Tablet PO (08:10)
[2022-01-01] MEDS: dilTIAZem CD 120 MG Capsule PO ×2 (08:10→21:23)
[2022-01-01] MEDS: Calcium Carb/Vitamin D 1 TABLET Tablet 2 TABLET PO (08:10)
[2022-01-01] MEDS: Potassium Chloride Oral Tablet 10 MEQ PO (08:11)
[2022-01-01] MEDS: guaiFENesin 1,200 MG Tablet 1200 MG PO ×2 (08:11→21:23)
[2022-01-01] MEDS: Anastrozole 1 MG TABLET PO (08:11)
[2022-01-01] MEDS: Sotalol Hydrochloride 80 MG Tablet PO ×2 (08:11→21:23)
[2022-01-01] MEDS: Menthol/Lanolin/Calamine/Znox 113 GM Tube 1 APPLIC TOPICAL ×2 (08:12→21:23)
--- NOTE | 2022-01-01 10:49 | PN.HOSP_ITS ---
Subjective Subjective Patient seen and examined. She said she had a complaint; she was annoyed and upset when PT/OT came to work with her, and refused to work with them. She said she felt like they were pushing her. Her breathing has improved a bit. Review of systems is otherwise negative. She is awaiting placement. Objective Data Objective Data Vital Signs: Vital Signs Temp Pulse Resp BP Pulse Ox 98.0 F 66 18 158/64 H 98 01/01/22 07:59 01/01/22 07:59 01/01/22 07:59 01/01/22 07:59 01/01/22 07:59 Oxygen Flow Rate (L/min) 2 Oxygen Delivery Method Nasal Cannula Weight: 171 lb 15.369 oz Body Mass Index (BMI) 27.3 Intake & Output: Intake and Output for Last 24 Hours 12/30/21 12/31/21 01/01/22 23:59 23:59 23:59 Intake Total 50 / 390 547 / 754 207 / 207 Output Total 1200 / 1300 600 / 800 200 / 200 Balance -1150 / -910 -53 / -46 7 / Medical Nutrition Assessment Dietitian: Malnutrition Criteria Met Start: 12/28/21 14:4 9 Freq: Status: Active Protocol: Document 12/30/21 10:26 AG (Rec: 12/30/21 10:26 [id number]) Nutrition Malnutrition Evidence of Malnutrition Exists Yes Malnutrition (severe): Chronic Evidenced By Suboptimal Energy Intake ( Severe),Weight Loss (Severe), Physical Changes (Moderate), Physical Changes (Severe) Clinical Problem Chronic Disease or Condition Related Malnutrition Etiology severe, chronic malnutrition related to suboptimal appetite Signs/Symptoms as evidenced by unintentional 14% weight loss in 6 months, < 75% PO intake of estimated energy needs for >1 month, and moderate temporal muscle loss /severe orbital fat loss per physical exam Status Active Problem Recommendation Dietitian Recommendations/Changes will liberalize diet to regular, no added salt given poor PO intake, malnutrition. Pt declines supplements at this time. May benefit from appetite stimulant. Lab / Micro Data Result Diagrams: 01/01/22 04:10 01/01/22 04:10 Labs: Laboratory Results - last 24 hr 01/01/22 04:10: WBC 9.3, RBC 3.62 L, Hgb 10.8 L, Hct 33.7 L, MCV 93.1, MCH 29.8, MCHC 32.0, RDW Std Deviation 41.7, RDW Coeff of Jenna 12.1, Plt Count 257, MPV 9.4, Immature Gran % (Auto) 0.400, Neut % (Auto) 78.4 H, Lymph % (Auto) 11.5 L, [place] % (Auto) 9.1, Eos % (Auto) 0.4, Baso % (Auto) 0.2, Absolute Neuts (auto) 7.3, Absolute Lymphs (auto) 1.07, Nucleated RBC % 0 01/01/22 04:10: Sodium 139, Potassium 4.9, Chloride 105, Carbon Dioxide 32.0, Anion Gap 2 L, BUN 23 H, Creatinine 0.81, Estim Creat Clear Calc 51.51, Est GFR (MDRD) Af Amer 88, Est GFR (MDRD) Non-Af 73, BUN/Creatinine Ratio 28.5 H, Gluc ose 167 H, Calcium 9.0 Micro: Microbiology 12/28/21 00:35 Blood Culture (Wb) - Anticubital Left Blood Culture - Preliminary No growth in 48 hours. 12/28/21 00:40 Blood Culture (Wb) - Left Hand Blood Culture - Preliminary No growth in 48 hours. 12/28/21 01:15 Sputum, Expectorated/Coughed Gram Stain - Final 12/28/21 01:15 Sputum, Expectorated/Coughed Respiratory Culture - Final Haemophilus influenzae 12/28/21 01:30 Urine, Clean Catch Legionella Antigen - Final 12/28/21 01:30 Urine, Clean Catch Streptococcus pneumoniae Antigen (M - Final 12/27/21 23:30 Nasal Secretion SARS-CoV-2 & FLU Antigen (Rapid) - Final Physical Exam Const alert, oriented x3 and no apparent distress Exam Limitations: no limitations HEENT head/scalp atraumatic and moist oral mucous membranes Head and Scalp: normocephalic Eyes PERRL, EOMs intact bilaterally and conjunctivae normal Neck no lymphadenopathy and supple Resp Resp Narrative: mildly diminished breath sounds bibasally, bilateral wheezing. No crackles. on 2L of oxygen by nasal canula Cardio regular rate, regular rhythm, S1 normal heart sound, S2 normal heart sound and no murmurs GI normal to inspection, nondistended, normoactive bowel sounds, soft to palpation, non-tender and non-distended Extremity normal to inspection, full ROM and no clubbing, cyanosis or edema Peripheral Pulses: Yes pulses 2+ throughout Skin no rashes or lesions noted Neuro oriented x3, CN's II-XII intact bilaterally and moves all extremities Sensorium / Orientation: awake and alert Psych affect normal Assessment & Plan Assessment/Plan (1) Haemophilus influenzae pneumonia: (2) Acute on chronic heart failure with preserved ejection fraction (HFpEF): PLAN: #Acute hypoxic respiratory failure due to H influenzae pneumonia and acute on chronic HFpEF * now on Augmentin, to complete the course on 01/04/2022 * on 2L of oxygen * titrate oxygen to maintain sats >90% * breathing treatment with bronchodilators. * covid and flu tests were negaitve; urine for strep and legionella were also negative * also on po prednisone. * #Acute on chronic HFpEF * has known EF of 55-60% * BNP was however only 91.4, throwing the diagnosis of acute on chronic HF in doubt. * on oral lasix * #Hypokalemia; resolved. #Lactic acidosis: resolved #Paroxysmal afib: on eliquis, cardizem and sotalol #Hypertension: on cardizem #Hyperlipidemia: on statin. #History of breast cancer: on arimidex #History of osteoporosis: on Prolia [id number] DVT prophylaxis: eliquis Disposition: awaiting placement Charges/Coding Visit Charges Inpatient E&M: 57525 Subs Hosp L2
[2022-01-01] MEDS: Acetaminophen 325 MG Tablet 650 MG PO (11:26)
[2022-01-01] MEDS: Albuterol 2.5 MG/3 ML VIAL.NEB. INHALATION ×2 (11:44→21:40)
[2022-01-01] MEDS: 0.9% Saline Lock 10 ML Syringe IV (12:16)
--- NOTE | 2022-01-01 15:10 | CASEMGMT ---
Social Work SW spoke with Flora at [facility]. Precert with insurance was started on Saturday but determination has not yet been made. ALFONSO met with pt and informed that [facility] has accepted and that precert from insurance is pending. Pt understanding and continues to wish to go to [facility] when insurance approves. Plan: [facility], pending precert [facility]
[2022-01-01] MEDS: Pravastatin 20 MG Tablet PO (21:23)
[2022-01-01] MEDS: HYDROcodone Bitartrate/Apap 5/325 Tablet PO (22:20)
[2022-01-01] MEDS: Zolpidem Tartrate 5 MG Tablet PO (22:21)
[2022-01-02] VITALS (9 sets, daily range): BP systolic 134–148; BP diastolic 60–87; PULSE 60–80; RESP 16–22; TEMP 36.1–36.9; O2SAT 91–96
[2022-01-02] MEDS: Albuterol 2.5 MG/3 ML VIAL.NEB. INHALATION ×2 (05:29→14:34)
[2022-01-02 05:54] LABS: Absolute Lymphocyte Count 1.51 X10^3/uL (0.83-4.51); Basophil# 0.02 X10^3/uL; Basophil% 0.2 % (0-1); Eosinophil# 0.07 X10^3/uL; Eosinophils% 0.6 % (0-5); Hemoglobin 11.3 g/dL (12.0-15.0); Lymphocyte # 1.51 X10^3/ul (0.83-4.51); Lymphocyte % 13.9 % (19-41); Mean Corp Hgb Conc 33.2 g/dL (32-36); Mean Corpuscular Hgb 29.9 pg (27.0-32.0); Mean Corpuscular Volume 89.9 fL (81-99); Mean Platelet Vol. 9.3 fl (6.2-12.0); Monocyte# 1.13 X10^3/uL; Monocyte% 10.4 % (0-10); NRBC Flagged by Analyzer 0 % (0-5); Neutrophil # 8.03 X10^3/uL (2.7-7.7); Neutrophil % 74.1 % (47-70); Platelet Count 293 K/mm3 (150-450); RBC Distribution Width SD 39.4 fl (35.1-43.9); Red Blood Count 3.78 M/mm3 (4.2-5.4); White Blood Count 10.9 K/mm3 (4.4-11.0)
[2022-01-02 06:29] LABS: Anion Gap 3 (5-15); BUN 26 mg/dL (7-18); Calcium,Total 9.1 mg/dL (8.5-10.1); Chloride 102 mmol/L (98-107); Creatinine, Serum 0.79 mg/dL (0.55-1.02); EST Glomerular Filtration Rate 75 mL/min (>60); Est Glom Filt Rate - Afr Amer 91 mL/min (>60); Estimated Creatinine Clearance 41.72 ml/min; Glucose 135 mg/dL (74-106); Potassium 4.3 mmol/L (3.5-5.1); Sodium Level 138 mmol/L (136-145)
[2022-01-02] MEDS: Acetaminophen 325 MG Tablet 650 MG PO (08:36)
[2022-01-02] MEDS: Calcium Carb/Vitamin D 1 TABLET Tablet 2 TABLET PO (08:37)
[2022-01-02] MEDS: predniSONE 20 MG Tablet 40 MG PO (08:37)
[2022-01-02] MEDS: Potassium Chloride Oral Tablet 10 MEQ PO (08:38)
[2022-01-02] MEDS: APIXABAN 5 MG TABLET PO ×2 (09:26→22:00)
[2022-01-02] MEDS: dilTIAZem CD 120 MG Capsule PO ×2 (09:26→22:01)
[2022-01-02] MEDS: Furosemide 40 MG Tablet PO (09:26)
[2022-01-02] MEDS: guaiFENesin 1,200 MG Tablet 1200 MG PO ×2 (09:26→22:00)
[2022-01-02] MEDS: Pantoprazole Sodium 20 MG Tablet PO (09:26)
[2022-01-02] MEDS: Menthol/Lanolin/Calamine/Znox 113 GM Tube 1 APPLIC TOPICAL ×2 (09:27→22:06)
[2022-01-02] MEDS: Amox/Clavulanate 875 MG Tablet PO ×2 (09:27→22:00)
[2022-01-02] MEDS: Sotalol Hydrochloride 80 MG Tablet PO ×2 (09:27→22:00)
[2022-01-02] MEDS: Anastrozole 1 MG TABLET PO (09:27)
--- NOTE | 2022-01-02 09:43 | PN.HOSP_ITS ---
Subjective Subjective Patient seen and examined. She complained of feeling tired because she didnt sleep well at night. She has no other complaints otherwise. Review of systems is otherwise negative. She is awaiting placement. Objective Data Objective Data Vital Signs: Vital Signs Temp Pulse Resp BP Pulse Ox 98.4 F 68 18 134/60 H 93 01/02/22 08:10 01/02/22 08:10 01/02/22 08:10 01/02/22 08:10 01/02/22 08:10 Oxygen Flow Rate (L/min) 2 Oxygen Delivery Method Room Air Weight: 171 lb 1.259 oz Body Mass Index (BMI) 27.3 Intake & Output: Intake and Output for Last 24 Hours 12/31/21 01/01/22 01/02/22 23:59 23:59 23:59 Intake Total 547 / 754 1247 / 1247 350 / 350 Output Total 600 / 800 1000 / 1000 Balance -53 / -46 247 / 247 350 / 350 Medical Nutrition Assessment Dietitian: Malnutrition Criteria Met Start: 12/28/21 14 :49 Freq: Status: Active Protocol: Document 12/30/21 10:26 AG (Rec: 12/30/21 10:26 [id number]) Nutrition Malnutrition Evidence of Malnutrition Exists Yes Malnutrition (severe): Chronic Evidenced By Suboptimal Energy Intake ( Severe),Weight Loss (Severe), Physical Changes (Moderate), Physical Changes (Severe) Clinical Problem Chronic Disease or Condition Related Malnutrition Etiology severe, chronic malnutrition related to suboptimal appetite Signs/Symptoms as evidenced by unintentional 14% weight loss in 6 months, < 75% PO intake of estimated energy needs for >1 month, and moderate temporal muscle loss /severe orbital fat loss per physical exam Status Active Problem Recommendation Dietitian Recommendations/Changes will liberalize diet to regular, no added salt given poor PO intake, malnutrition. Pt declines supplements at this time. May benefit from appetite stimulant. Lab / Micro Data Result Diagrams: 01/02/22 04:54 01/02/22 04:54 Labs: Laboratory Results - last 24 hr 01/02/22 04:54: WBC 10.9, RBC 3.78 L, Hgb 11.3 L, Hct 34.0 L, MCV 89.9, MCH 29.9, MCHC 33.2, RDW Std Deviation 39.4, RDW Coeff of Jenna 12.0, Plt Count 293, MPV 9.3, Immature Gran % (Auto) 0.800, Neut % (Auto) 74.1 H, Lymph % (Auto) 13.9 L, [place] % (Auto) 10.4 H, Eos % (Auto) 0.6, Baso % (Auto) 0.2, Absolute Neuts (auto) 8.0 H, Absolute Lymphs (auto) 1.51, Nucleated RBC % 0 01/02/22 04:54: Sodium 138, Potassium 4.3, Chloride 102, Carbon Dioxide 33.0 H, Anion Gap 3 L, BUN 26 H, Creatinine 0.79, Estim Creat Clear Calc 41.72, Est GFR (MDRD) Af Amer 91, Est GFR (MDRD) Non-Af 75, BUN/Creatinine Ratio 33.0 H, Glucose 135 H, Calcium 9.1 Micro: Microbiology 12/28/21 00:35 Blood Culture (Wb) - Anticubital Left Blood Culture - Final No growth in 5 days. 12/28/21 00:40 Blood Culture (Wb) - Left Hand Blood Culture - Final No growth in 5 days. 12/28/21 01:15 Sputum, Expectorated/Coughed Gram Stain - Final 12/28/21 01:15 Sputum, Expectorated/Coughed Respiratory Culture - Final Haemophilus influenzae 12/28/21 01:30 Urine, Clean Catch Legionella Antigen - Final 12/28/21 01:30 Urine, Clean Catch Streptococcus pneumoniae Antigen (M - Final 12/27/21 23:30 Nasal Secretion SARS-CoV-2 & FLU Antigen (Rapid) - Final Physical Exam Const alert, oriented x3 and no apparent distress Exam Limitations: no limitations Nutritional Appearance: overweight HEENT head/scalp atraumatic and moist oral mucous membranes Head and Scalp: normocephalic Eyes PERRL, EOMs intact bilaterally and conjunctivae normal Neck no lymphadenopathy and supple Resp normal respiratory effort, no retractions, no use of accessory muscles and clear to auscultation bilaterally Resp Narrative: mildly diminished breath sounds bibasally, bilateral wheezing. No crackles. on 2L of oxygen by nasal canula Auscultation: wheezes; Negative for crackles, rales or rhonchi Cardio regular rate, regular rhythm, S1 normal heart sound, S2 normal heart sound, no murmurs, no rub, no gallops, no clicks and no JVD GI normal to inspection, nondistended, normoactive bowel sounds, soft to palpation, non-tender and non-distended Extremity normal to inspection, full ROM and no clubbing, cyanosis or edema General Extremity: edema bilateral (improved from 12/28) Peripheral Pulses: Yes pulses 2+ throughout Skin no rashes or lesions noted Neuro oriented x3, CN's II-XII intact bilaterally, moves all extremities and no focal motor deficits Sensorium / Orientation: awake and alert Psych affect normal Assessment & Plan Assessment/Plan (1) Haemophilus influenzae pneumonia: (2) Acute on chronic heart failure with preserved ejection fraction (HFpEF): PLAN: #Acute hypoxic respiratory failure due to H influenzae pneumonia and acute on chronic HFpEF * now on Augmentin, to complete the course on 01/04/2022 * on 2L of oxygen * titrate oxygen to maintain sats >90% * breathing treatment with bronchodilators. * covid and flu tests were negaitve; urine for strep and legionella were also negative * also on po prednisone. * #Acute on chronic HFpEF * has known EF of 55-60% * BNP was however only 91.4 * on oral lasix * #Hypokalemia; resolved. #Lactic acidosis: resolved #Paroxysmal afib: on eliquis, cardizem and sotalol #Hypertension: on cardizem #Hyperlipidemia: on statin. #History of breast cancer: on arimidex #History of osteoporosis: on Prolia [id number] DVT prophylaxis: eliquis Disposition: awaiting placement Charges/Coding Visit Charges Inpatient E&M: 17253 Subs Hosp L2
--- NOTE | 2022-01-02 11:10 | PCA ---
patient started screaming at me because she refuses to walk to the bathroom and insistent to have a purwick put in while up in the chair. I try to talk to the patient but she continuing on yelling at me.
--- NOTE | 2022-01-02 14:04 | CASEMGMT ---
Addendum entered by Kristel Altamirano 01/02/22 15:53: SW spoke with Flora at [facility] and precert has not been obtained at this time. Determination still pending. Plan: [facility], pending [facility] Original Note: Social Work VM left with Flora at [facility] to check on insurance authorization. SW will await return call from facility regarding precert. Plan: [facility], pending [facility]
[2022-01-02] MEDS: HYDROcodone Bitartrate/Apap 5/325 Tablet PO ×2 (14:12→22:01)
[2022-01-02] MEDS: 0.9% Saline Lock 10 ML Syringe IV (15:43)
[2022-01-02] MEDS: Zolpidem Tartrate 5 MG Tablet PO (22:01)
[2022-01-02] MEDS: Pravastatin 20 MG Tablet PO (22:05)
[2022-01-03 01:30] VITALS: BP 152/66; PULSE 63; RESP 16; TEMP 36.7; O2SAT 95
[2022-01-03 06:16] LABS: Anion Gap 5 (5-15); BUN 26 mg/dL (7-18); BUN/Creat Ratio 33.1 RATIO (10-20); Calcium,Total 9.3 mg/dL (8.5-10.1); Chloride 102 mmol/L (98-107); Creatinine, Serum 0.78 mg/dL (0.55-1.02); EST Glomerular Filtration Rate 75 mL/min (>60); Est Glom Filt Rate - Afr Amer 91 mL/min (>60); Estimated Creatinine Clearance 41.72 ml/min; Glucose 165 mg/dL (74-106); Potassium 4.2 mmol/L (3.5-5.1); Sodium Level 139 mmol/L (136-145)
[2022-01-03 06:24] LABS: Absolute Lymphocyte Count 1.05 X10^3/uL (0.83-4.51); Absolute Neutrophil Count 9.6 X10^3/uL (2.0-7.7); Basophil# 0.03 X10^3/uL; Basophil% 0.3 % (0-1); Hematocrit 35.5 % (37-47); Hemoglobin 11.5 g/dL (12.0-15.0); Lymphocyte # 1.05 X10^3/ul (0.83-4.51); Lymphocyte % 8.8 % (19-41); Mean Corp Hgb Conc 32.4 g/dL (32-36); Mean Corpuscular Volume 92.7 fL (81-99); Mean Platelet Vol. 9.6 fl (6.2-12.0); Monocyte# 1.15 X10^3/uL; Monocyte% 9.6 % (0-10); NRBC Flagged by Analyzer 0 % (0-5); Neutrophil # 9.55 X10^3/uL (2.7-7.7); Neutrophil % 80.1 % (47-70); Platelet Count 296 K/mm3 (150-450); RBC Distribution Width CV 12.1 % (11.6-14.6); RBC Distribution Width SD 41.1 fl (35.1-43.9); Red Blood Count 3.83 M/mm3 (4.2-5.4); White Blood Count 11.9 K/mm3 (4.4-11.0)
[2022-01-03 07:30] VITALS: BP 149/70; PULSE 58; RESP 18; TEMP 36.8; O2SAT 98
[2022-01-03] MEDS: predniSONE 20 MG Tablet 40 MG PO (08:05)
[2022-01-03] MEDS: Calcium Carb/Vitamin D 1 TABLET Tablet 2 TABLET PO (08:05)
[2022-01-03] MEDS: Potassium Chloride Oral Tablet 10 MEQ PO (08:05)
[2022-01-03 08:35] VITALS: O2SAT 94
--- NOTE | 2022-01-03 09:19 | CASEMGMT ---
Addendum entered by Isabela Arreola 01/03/22 11:00: Pt aware that [facility] accepted her and they will be in touch with her to set up an appt to be out this week. She denies further questions or homegoing needs. Addendum entered by Isabela Arreola 01/03/22 10:48: Received tc back from Margot at [facility], they will see pt for SOC on or Saturday. Original Note: TC to [facility], referral left on Margot's vm. Will await acceptance.
--- NOTE | 2022-01-03 09:20 | CASEMGMT ---
Social Work SW received message from Nicol at [facility] stating pt has been denied admission to SNF. SW met with pt and informed of determination. Pt stating she has decided to return home prior to finding out this information. SW spoke with pt regarding home health and provided list of home health providers including quality and resource use data and consistent with the patient's preferred georaphic region, medical needs and insurance network. Pt preferred provider is [facility]. Pt is agreeable to home PT. SW updated RNCM. Pt states she has needed DME and her family can transport her home after work tonight. Pt denies any other needs at this time. Plan: Home with home health PT [facility]
[2022-01-03] MEDS: Pantoprazole Sodium 20 MG Tablet PO (10:06)
[2022-01-03] MEDS: guaiFENesin 1,200 MG Tablet 1200 MG PO (10:06)
[2022-01-03] MEDS: APIXABAN 5 MG TABLET PO (10:06)
[2022-01-03] MEDS: Furosemide 40 MG Tablet PO (10:06)
[2022-01-03] MEDS: Anastrozole 1 MG TABLET PO (10:06)
[2022-01-03] MEDS: dilTIAZem CD 120 MG Capsule PO (10:07)
[2022-01-03] MEDS: Sotalol Hydrochloride 80 MG Tablet PO (10:07)
[2022-01-03] MEDS: Amox/Clavulanate 875 MG Tablet PO (10:07)
[2022-01-03] MEDS: Menthol/Lanolin/Calamine/Znox 113 GM Tube 1 APPLIC TOPICAL (10:07)
--- NOTE | 2022-01-03 13:12 | PCM.DC.SUM ---
Providers Date of Admission: 12/28/21 Date of Discharge: 01/03/22 Primary Care Physician: Dr. Jessica Aguero DO Reason For Visit: PNUEMONIA Diagnosis Discharge Diagnosis (1) Haemophilus influenzae pneumonia: Status: Acute Code(s): J14 - Pneumonia due to Hemophilus influenzae (2) Acute on chronic heart failure with preserved ejection fraction (HFpEF): Status: Acute Code(s): I50.33 - Acute on chronic diastolic (congestive) heart failure Medications at Discharge Home Medications albuterol sulfate 90 mcg/actuation aerosol inhaler 2 puff inhalation Q4H PRN PRN Asthma 06/16/13 omeprazole 20 mg capsule,delayed release 20 mg PO DAILY reflux 06/16/13 calcium citrate 315 mg calcium-vitamin D3 6.25 mcg (250 unit) tablet 2 tab PO DAILY SUPLEMENT 10/24/18 zolpidem 12.5 mg tablet,extended release,multiphase 6.25 mg PO QHS PRN PRN Insomnia 03/24/19 acetaminophen 650 mg tablet,extended release 1,200 mg PO DAILY PRN Pain 11/25/20 denosumab 60 mg/mL subcutaneous syringe (Prolia) 60 mg subcut .[id number] bones 11/25/20 hydrocodone-acetaminophen 5-325mg 5mg-325mg 1 tab PO BID PRN Pain 11/25/20 sotalol 80 mg tablet 80 mg PO BID #60 tabs 02/27/21 pravastatin 20 mg tablet 20 mg PO QHS CHOLESTEROL 04/28/21 diltiazem HCl 120 mg capsule,extended release 24 hr (Cardizem CD) 120 mg PO BID afib #180 caps 08/09/21 potassium chloride 10 mEq tablet,extended release 10 meq PO DAILY #90 tabs 08/09/21 anastrozole 1 mg tablet 1 mg PO DAILY breast cancer 12/08/21 apixaban 5 mg tablet (Eliquis) 5 mg PO BID afib 12/28/21 amoxicillin 875 mg-potassium clavulanate 125 mg tablet 875 mg PO BID #2 tabs 01/03/22 furosemide 40 mg tablet 40 mg PO DAILY #30 tabs 01/03/22 Hospital Course Operations None Summary of Care Provided Minutes Spent on Discharge: 45 Hospital Course: Patient is a 76 y/o female with a PMH as outllined. She was admitted via the ED on 12/28/2021 with a complaitn of progressively worsening shortness of breath that started the day before admission. She had an associated cough productive of thick white sputum. She had associated wheezing and genralised weakness. She had gone to her pain management doct's office on salvatore day of admission and was advised to go to her vice president of nursing's because she wasnt feeling well. She had blood work done in the vice president of nursing's office and as subsequently sent home. She however still felt unwell, so she came in to the ED. she was also found to be hypoxic in the ED with a saturation dropping to 88% on room air. She also reported a weight gain of 3 to 5 pounds and says she had swelling of her lower extremities. Chest x-ray showed no acute cardiopulmonary process. She was admitted and managed for community-acquired pneumonia due to H. influenzae as from sputum cultures as well as acute on chronic heart failure preserved ejection fraction. She was initially on IV azithromycin and ceftriaxone which was subsequently switched to p.o. Augmentin. She was diuresed with IV Lasix. His shortness of breath gradually improved and resolved. She was switched to p.o. Lasix. She felt much better and was initially skilled to go to a snf facility. However insurance denied the precertification and patient also refused to go to the SNF anyways. She was discharged home with home health on 01/03/2022. She is to follow-up with her primary care doctor and vice president of nursing within 1 to 2 weeks. Patient was seen and examined prior to discharge. He had no active complaints and had an uneventful night. Review of systems otherwise negative. Labs and vitals reviewed. Medication reviewed and reconciled. Physical Exam Const alert, oriented x3 and no apparent distress General Appearance: cooperative, comfortable and well kempt Exam Limitations: no limitations Nutritional Appearance: overweight HEENT normocephalic, head/scalp atraumatic, hearing grossly normal bilaterally and moist oral mucous membranes Eyes PERRL, EOMs intact bilaterally and conjunctivae normal Neck no lymphadenopathy and supple Resp normal respiratory effort, no retractions, no use of accessory muscles and clear to auscultation bilaterally Resp Narrative: mildly diminished breath sounds bibasally, bilateral wheezing. No crackles. on 2L of oxygen by nasal canula Auscultation: wheezes; Negative for crackles, rales or rhonchi Cardio regular rate, regular rhythm, S1 normal heart sound, S2 normal heart sound, no murmurs, no rub, no gallops, no clicks and no JVD GI normal to inspection, nondistended, normoactive bowel sounds, soft to palpation, non-tender and non-distended Extremity normal to inspection, full ROM and no clubbing, cyanosis or edema General Extremity: edema bilateral (improved from 12/28) Skin no rashes or lesions noted Neuro oriented x3, CN's II-XII intact bilaterally, moves all extremities and no focal motor deficits Sensorium / Orientation: awake and alert Psych affect normal Medical Records Data Medical Nutrition Assessment Dietitian: Malnutrition Criteria Met Start: 12/28/21 14:49 Freq: Status: Active Protocol: Document 01/02/22 11:57 RMA (Rec: 01/02/22 11:57 RMA [id number]) Nutrition Malnutrition Evidence of Malnutrition Exists Yes Malnutrition (severe): Chronic Evidenced By Suboptimal Energy Intake ( Severe),Weight Loss (Severe), Physical Changes (Moderate), Physical Changes (Severe) Clinical Problem Chronic Disease or Condition Related Malnutrition Etiology severe, chronic malnutrition related to suboptimal appetite and inadequate oral intake Signs/Symptoms as evidenced by unintentional 14% weight loss in 6 months, < 75% PO intake of estimated energy needs for >1 month, and moderate temporal muscle loss /severe orbital fat loss per physical exam Status Active Problem Recommendation Dietitian Recommendations/Changes Continue liberalize diet to regular/no added salt given poor PO intake, malnutrition. Pt continues to decline oral nutrition supplements at this time. May benefit from appetite stimulant. Will monitor PO, weight and follow-up with [facility] as indicated. Weight / BMI Weight Weight: 169 lb 1.513 oz Body Mass Index (BMI) 27.3 ABG / Lab / Microbiology Data Result Diagrams: 01/03/22 03:51 01/03/22 03:51 Laboratory: Laboratory Results - last 24 hr 01/03/22 03:51: WBC 11.9 H, RBC 3.83 L, Hgb 11.5 L, Hct 35.5 L, MCV 92.7, MCH 30.0, MCHC 32.4, RDW Std Deviation 41.1, RDW Coeff of Jenna 12.1, Plt Count 296, MPV 9.6, Immature Gran % (Auto) 1.200 H, Neut % (Auto) 80.1 H, Lymph % (Auto) 8.8 L, [place] % (Auto) 9.6, Eos % (Auto) 0.0, Baso % (Auto) 0.3, Absolute Neuts (auto) 9.6 H, Absolute Lymphs (auto) 1.05, Nucleated RBC % 0 01/03/22 03:51: Sodium 139, Potassium 4.2, Chloride 102, Carbon Dioxide 32.0, Anion Gap 5, BUN 26 H, Creatinine 0.78, Estim Creat Clear Calc 41.72, Est GFR (MDRD) Af Amer 91, Est GFR (MDRD) Non-Af 75, BUN/Creatinine Ratio 33.1 H, Glucose 165 H, Calcium 9.3 Microbiology: Microbiology 12/28/21 00:35 Blood Culture (Wb) - Anticubital Left Blood Culture - Final No growth in 5 days. 12/28/21 00:40 Blood Culture (Wb) - Left Hand Blood Culture - Final No growth in 5 days. 12/28/21 01:15 Sputum, Expectorated/Coughed Gram Stain - Final 12/28/21 01:15 Sputum, Expectorated/Coughed Respiratory Culture - Final Haemophilus influenzae 12/28/21 01:30 Urine, Clean Catch Legionella Antigen - Final 12/28/21 01:30 Urine, Clean Catch Streptococcus pneumoniae Antigen (M - Final 12/27/21 23:30 Nasal Secretion SARS-CoV-2 & FLU Antigen (Rapid) - Final D/C Instructions Discharge Diet: Low fat / Low cholesterol Discharge Activity: Return to Normal Activity Weight Bearing Status: Weight bearing as tolerated Call your doctor if you observe: Fever of 101 or Higher, Shortness of breath, Dizziness, Swelling in the ankles, Chest pain and Increased palpitations (irregular heartbeat) Meaningful Use Info Meaningful Use Diagnoses (Choose all that apply): CHF CHF MONTRELL/ARB ordered at discharge?: No Reason MONTRELL/ARB not ordered?: Normal EF Documented LVEF (%): 55 Discharge Plan Admission Admit Date/Time: 12/28/21 00:27 Primary Reason for Your Visit: acute on chronic HFpEF, H influenzae pneumonia Attending Provider: Ariana Weber Primary Care Provider: Jessica Aguero Consulting Providers: Gerhard Hernadez ; Aníbal Driver ; Kimberlee Robins Instructions Patient Instructions: ED Heart Failure Congestive Right, ED Pneumonia (Adult) Discharge Orders/Prescriptions Prescriptions: New furosemide 40 mg Tablet 40 mg PO DAILY Qty: 30 2RF amoxicillin-pot clavulanate 875-125 mg Tablet 875 mg PO BID Qty: 2 0RF Continued anastrozole 1 mg tablet 1 mg PO DAILY omeprazole 20 MG capsule 20 mg PO DAILY Label Comments: DECREASES ACID IN THE STOMACH albuterol sulfate 1 PUFF inhaler 2 puff INHALATION Q4H PRN PRN (Reason: Asthma) Label Comments: copd zolpidem 12.5 MG tablet,ext release multiphase 6.25 mg PO QHS PRN PRN (Reason: Insomnia) calcium citrate-vitamin D3 1 EACH tablet 2 tab PO DAILY hydrocodone-acetaminophen 5-325 mg tablet 1 tab PO BID PRN (Reason: Pain) Label Comments: TAKE 1 TABLET BY MOUTH THREE TIMES DAILY acetaminophen 650 mg Tablet Extended Release 1,200 mg PO DAILY PRN (Reason: Pain) Prolia 60 mg/mL Syringe 60 mg SUBCUT .[id number] pravastatin 20 mg tablet 20 mg PO QHS Label Comments: TAKE 1 TABLET BY MOUTH EVERY DAY AT BEDTIME Eliquis 5 mg tablet 5 mg PO BID Label Comments: TAKE 1 TABLET BY MOUTH TWICE DAILY sotalol 80 mg tablet 80 mg PO BID Qty: 60 11RF potassium chloride 10 mEq tablet extended release 10 meq PO DAILY Qty: 90 3RF diltiazem HCl [Cardizem CD] 120 mg capsule,extended release 24hr 120 mg PO BID Qty: 180 3RF Discontinued furosemide 20 mg tablet 20 mg PO DAILY Qty: 90 3RF Referrals / Follow Up: Juan Carlos Blackwood MD [STAFF PHYSICIAN] - Within 2 Weeks Jessica Aguero DO [Primary Care Provider] - Within 2 Weeks Disposition Disposition (needs filled in before D/C Order can be placed): Home Health Service Charges/Coding Visit Charges Inpatient E&M: 64498 Disch Hosp
[2022-01-03 14:41] VITALS: BP 145/62; PULSE 70; RESP 18; TEMP 36.7; O2SAT 94
--- NOTE | 2022-01-09 12:34 | PN.HOSP_ITS ---
Hospitalist Note Asked to call [facility] pharmacy to clarify antibiotic dose that patient was sent home with on 01/03/2022. Patient was hospitalized from 12/28-01/03 and discharged home with 2 more tabs of Augmentin for a total of 7 days of treatment. Clarified with [facility] pharmacist at [facility] that patient only need one more day of antibiotics or two more doses.
== END 2022-01-03 16:15 | disposition home health service (06) | DRG 291 ==
LOC: ED 12-28 00:25 → MS3 12-28 01:05
PROVIDERS: Internal Medicine; Admitting Provider Hospitalist; Emergency Provider Emergency Medicine; PCP Internal Medicine; Visit Provider Student in an Organized Health Care Education/Training Program
DX: I13.0 Hypertensive heart and chronic kidney disease with heart failure and stage 1 through stage 4 chronic kidney disease, or unspecified chronic kidney disease (principal); E43 Unspecified severe protein-calorie malnutrition; J44.0 Chronic obstructive pulmonary disease with (acute) lower respiratory infection; I50.32 Chronic diastolic (congestive) heart failure; Z79.01 Long term (current) use of anticoagulants; I48.0 Paroxysmal atrial fibrillation; N18.2 Chronic kidney disease, stage 2 (mild); E78.5 Hyperlipidemia, unspecified; I25.10 Atherosclerotic heart disease of native coronary artery without angina pectoris; E87.6 Hypokalemia; K21.9 Gastro-esophageal reflux disease without esophagitis; G47.33 Obstructive sleep apnea (adult) (pediatric); Z68.27 Body mass index [BMI] 27.0-27.9, adult; Z20.822 Contact with and (suspected) exposure to COVID-19; M81.0 Age-related osteoporosis without current pathological fracture; G89.29 Other chronic pain; Z79.811 Long term (current) use of aromatase inhibitors; Z79.899 Other long term (current) drug therapy; Z85.3 Personal history of malignant neoplasm of breast
CPT/HCPCS: 36415; 71045; 80048; 83605; 83735; 83880; 84145; 84484; 85025; 87040; 87070; 87077; 87205; 87428; 87449; 93005; 94640; 97110; 97116; 97162; 97166; 97530; 97535; 99251; 99285; A4216; G0463; J0696; J1938

== ENCOUNTER → 2021-12-27 | Outpatient (CLI) | payer MEDICARE, MEDICAID, SELFPAY ==
[2021-12-27 14:22] LABS: Anion Gap 5 (5-15); BUN 21 mg/dL (7-18); BUN/Creat Ratio 25.3 RATIO (10-20); Calcium,Total 9.1 mg/dL (8.5-10.1); Chloride 105 mmol/L (98-107); Creatinine, Serum 0.83 mg/dL (0.55-1.02); EST Glomerular Filtration Rate 71 mL/min (>60); Est Glom Filt Rate - Afr Amer 85 mL/min (>60); Glucose 158 mg/dL (74-106); Potassium 4.2 mmol/L (3.5-5.1); Sodium Level 140 mmol/L (136-145)
[2021-12-27 14:26] LABS: BNP,B-Type NATRIURETIC PEPTIDE 91.4 pg/mL (0-100)
== END | disposition home or self-care (01) ==
LOC: LAB 13:19
PROVIDERS: PCP Internal Medicine; Visit Provider Physician Assistant Medical
DX: R06.02 Shortness of breath (principal); I50.9 Heart failure, unspecified; I48.0 Paroxysmal atrial fibrillation; R06.01 Orthopnea; I25.10 Atherosclerotic heart disease of native coronary artery without angina pectoris
CPT/HCPCS: 36415; 80048; 83880

== ENCOUNTER 2022-01-20 23:17 | Emergency (ER) | payer MEDICARE, MEDICAID, SELFPAY ==
[2022-01-20 23:18] VITALS: BP 142/81; PULSE 112; RESP 25; O2SAT 95
[2022-01-20 23:19] VITALS: BP 142/81; PULSE 123; RESP 17; TEMP 37.3; O2SAT 94; BMI 30.7
--- NOTE | 2022-01-20 23:39 | RAD_ITS ---
STUDY: PORTABLE AP UPRIGHT CHEST X-RAY OF 2353 HOURS ON 01/20/2022 REASON FOR EXAM: 76-year-old female with chest pain. TECHNIQUE: A single view portable AP upright chest x-ray was performed per protocol. COMPARISON: 12/27/2021. FINDINGS: Mild demineralization. Mild cardiomegaly without heart failure. Mild fibrotic or recurrent infiltrate process in the medial right lower lobe--the site of a pneumonia on 07/28/2021. No other infiltrates, atelectasis, effusion, or pulmonary mass lesions. RAD/Chest 1 View (Portable) IMPRESSION: 1. Mild fibrotic or recurrent infiltrative process in the medial right lower lobe, the site of a pneumonia on 07/28/2021. 2. Mild cardiomegaly without heart failure. 3. No other evidence of active cardiopulmonary disease. 4. Mild demineralization. Electronically Signed: Wilbur Curran MD at 0:36 EDT ,
--- NOTE | 2022-01-20 23:39 | EKG12_ITS ---
Test Reason : CP Blood Pressure : / mmHG Vent. Rate : 123 BPM Atrial Rate : 123 BPM P-R Int : 266 ms QRS Dur : 084 ms QT Int : 220 ms P-R-T Axes : 054 017 243 degrees QTc Int : 314 ms Sinus tachycardia with 1st degree A-V block Inferior infarct , age undetermined , cannot be excluded Incomplete right bundle branch block Abnormal ECG Confirmed by AYANA GONZALEZ, JORGE ([id number]), film and video editor ALEXEY BILLINGS ([id number]) on 01/23/2022 10:01:09 AM Referred By: LUCAS Confirmed By:JORGE PIÑA MD
--- NOTE | 2022-01-20 23:41 | EDS_ITS ---
HPI History of Present Illness Chief Complaint: Chest Pain Informant: patient Onset/Context/Timing Onset: Hours (1.5-2) Activity at onset: sudden, onset and rest (Sitting watching TV) Timing: Continuous and Waxes and wanes Quality: Positive for Pain (Hard pain) Location: Left Chest (Without radiation) Current Severity: Mild Maximum Severity: Moderate Worsened By: Exertion Relieved By: Rest Associated Symptoms: Positive for Dyspnea and Palpitations; Negative for Lightheadedness Narrative Narrative: Patient was at rest when she started having rapid palpitations feeling like she was in A. fib, along with left-sided chest pain that has waxed and waned, when she exerts herself everything seems to be worse and racing faster, when she rests it seems to improve. Took all of her medications as usual today including her nighttime medications already several hours ago. This includes sotalol and extended release diltiazem. She is unsure if she is in A. fib all the time or not, she states when she went to the doctor last time she was not. She is on Eliquis. She was admitted to the hospital several weeks ago for pneumonia and states that she has been home for the past 2 weeks or so she has been doing well. She denies any other physical symptoms right now. Mild leg swelling is as usual. [facility] Medical History Anemia Anticoagulant long-term use Asthma Atherosclerotic heart disease of [place] coronary artery without angina pectoris Atrial fibrillation Bilateral pleural effusion CAD (coronary artery disease) Chemo-induced gastroenteritis Chemotherapy induced nausea and vomiting Chronic pain Colitis Constipation COPD (chronic obstructive pulmonary disease) Degenerative joint disease of right hip Depression Educational circumstance Encounter for screening for malignant neoplasm of colon Essential hypertension GERD (gastroesophageal reflux disease) Jody filter in place Hemorrhoid HTN (hypertension) Hx of deep vein thrombophlebitis of lower extremity Hyperlipidemia Insomnia Lumbar spondylosis Obesity Obstructive sleep apnea Osteoarthritis Osteoporosis Paroxysmal atrial fibrillation Personal history of pulmonary embolism port placement PORT REMOVAL Positive fecal occult blood test Primary cancer of right female breast Pure hypercholesterolemia PVD (peripheral vascular disease) Rectal prolapse Sepsis Thyroid cancer Home Medications albuterol sulfate 90 mcg/actuation aerosol inhaler 2 puff inhalation Q4H PRN PRN Asthma 06/16/13 [History Last Taken 12/26/21] omeprazole 20 mg capsule,delayed release 20 mg PO DAILY reflux 06/16/13 [History Last Taken 12/27/21] calcium citrate 315 mg calcium-vitamin D3 6.25 mcg (250 unit) tablet 2 tab PO DAILY SUPLEMENT 10/24/18 [History Last Taken 12/27/21] zolpidem 12.5 mg tablet,extended release,multiphase 6.25 mg PO QHS PRN PRN Insomnia 03/24/19 [History Last Taken 07/10/21] acetaminophen 650 mg tablet,extended release 1,200 mg PO DAILY PRN Pain 11/25/20 [History Last Taken 07/11/21] denosumab 60 mg/mL subcutaneous syringe (Prolia) 60 mg subcut .[id number] bones 11/25/20 [History Last Taken 12/03/21] hydrocodone-acetaminophen 5-325mg 5mg-325mg 1 tab PO BID PRN Pain 11/25/20 [History Last Taken 12/27/21] sotalol 80 mg tablet 80 mg PO BID #60 tabs 02/27/21 [Rx Last Taken 12/27/21] pravastatin 20 mg tablet 20 mg PO QHS CHOLESTEROL 04/28/21 [History Last Taken 12/27/21] diltiazem HCl 120 mg capsule,extended release 24 hr (Cardizem CD) 120 mg PO BID afib #180 caps 08/09/21 [Rx Last Taken 12/27/21] potassium chloride 10 mEq tablet,extended release 10 meq PO DAILY #90 tabs 08/09/21 [Rx Last Taken 12/27/21] anastrozole 1 mg tablet 1 mg PO DAILY breast cancer 12/08/21 [History Last Taken 12/27/21] apixaban 5 mg tablet (Eliquis) 5 mg PO BID afib 12/28/21 [History Last Taken 12/27/21] amoxicillin 875 mg-potassium clavulanate 125 mg tablet 875 mg PO BID #2 tabs 01/03/22 [Rx Last Taken Unknown] furosemide 40 mg tablet 40 mg PO DAILY #30 tabs 01/03/22 [Rx Last Taken Unknown] Allergy/AdvReac Type Severity Reaction Status Date / Time niacin Allergy Intermediate I DON'T Verified 01/20/22 23:19 REMEMBER, I CAN'T TAKE IT bee stings Allergy Swelling Uncoded 01/20/22 23:19 Family History Brother Diabetes Heart disease Sister Breast cancer Mother Cancer brain and bone mets Aunt Breast cancer Grandmother Cancer Surgical History (Updated 01/20/22 @ 23:26 by Simón Mcdaniel) History of appendectomy History of cholecystectomy History of incisional hernia repair Hx of mastectomy S/P carpal tunnel release S/P cataract extraction S/P hysterectomy S/P lumbar discectomy S/P partial thyroidectomy S/P revision of total knee S/P right breast biopsy S/P total knee replacement Social History household members: none Smoking Status: Never smoker alcohol intake: never substance use type: does not use caffeine: No ROS ROS ED Constitutional Constitutional ED: Denies chills or fever(s) Eyes Eyes: Denies change in vision or diplopia ENT ENT ED: Denies rhinorrhea or sore throat Cardiovascular Cardiovascular: Reports chest pain, palpitations and racing heartbeat Respiratory/Chest Respiratory/Chest: Reports dyspnea on exertion; Denies cough Gastrointestinal Gastrointestinal: Denies abdominal pain, diarrhea, nausea or vomiting Genitourinary Genitourinary ED: Denies dysuria or hematuria Musculoskeletal Musculoskeletal: Denies back pain or neck pain Integumentary Denies abscess or rash Neurologic Neurologic: Denies headache(s), paresthesias or weakness Psychiatric Psychiatric: Denies anxiety or suicidal thoughts EXAM Physical Exam Const Vital Signs: 01/20/22 23:19 01/20/22 23:18 01/20/22 23:24 Temperature 99.1 F Temperature Source Temporal Pulse Rate 123 H 112 H Respiratory Rate 17 25 H Respiratory Effort Normal Blood Pressure 142/81 H 142/81 H Blood Pressure Mean 101 101 Pulse Ox 94 95 Oxygen Delivery Method Room Air Room Air Oxygen Flow Rate (L/min) 01/20/22 23:46 01/21/22 01:24 Temperature Temperature Source Pulse Rate 91 Respiratory Rate 23 H Respiratory Effort Blood Pressure 118/67 Blood Pressure Mean 84 Pulse Ox 95 96 Oxygen Delivery Method Nasal Cannula Oxygen Flow Rate (L/min) 2 Positive well nourished, well developed and obese General Appearance ED: well developed and NAD Nutritional Appearance: obese HEENT Reports moist mucous membranes normocephalic and atraumatic Eyes PERRL and EOMs intact bilaterally Neck full ROM, supple and no JVD Resp normal respiratory effort and clear to auscultation bilaterally Cardio no murmurs Rate: tachycardic Rhythm: abnormal rhythm irregularly irregular GI non-tender and non-distended Auscultation: normoactive bowel sounds Palpation: soft Back/Spine no CVA tenderness General Back: other FROM Extremity normal to inspection General Extremety ED: Negative for edema, pulses abnormal or tenderness General Extremity: Negative for edema or pulses abnormal Neuro oriented x3, CN's II-XII intact bilaterally and no sensory deficits noted Sensorium / Orientation: awake and alert Motor Exam: strength 5/5 throughout Skin no rashes or lesions noted and no wounds Heart Score History: Slightly/Non-Suspicious ECG: Nonspecific Repolarization Age: >/= 65 years Risk Factors: >/= 3 Risk Factors or History of CAD Score: 5 MDM MDM MDM Narrative Medical decision making narrative: Patient appear to be irregular on exam and on the monitor in A. fib, however her EKG appears to be sinus tachycardia. She was given some Cardizem, this helped slow her down further, we observed her and did 2 sets of troponins, the first one was 9 the second one was 11. Her EKG shows nothing consistent with injury. She eventually slowed down to the 60s and is asymptomatic. We ambulated her and she remained so. At this time I am comfortable with her going home. I am not going to adjust her medications right now, but I would follow-up closely with her doctor after the weekend. With regards to her chest x-ray, 1 view on my interpretation shows chronic changes nothing acute, radiology mentioned the infiltrative process that is in the right medial lower lobe, improved compared with her prior pneumonia, she is not having any symptoms of pneumonia right now is feeling better and I do not think that we need to address this acutely. Lab Data Attestation: I reviewed the patient's lab results. Labs: Laboratory Results - last 24 hr 01/20/22 01/20/22 01/21/22 23:45 23:45 01:58 WBC 7.3 RBC 3.82 L Hgb 11.4 L Hct 35.4 L MCV 92.7 MCH 29.8 MCHC 32.2 RDW Std Deviation 43.1 RDW Coeff of Jenna 12.8 Plt Count 187 MPV 9.0 Immature Gran % (Auto) 0.600 Neut % (Auto) 66.1 Lymph % (Auto) 20.8 [place] % (Auto) 9.4 Eos % (Auto) 3.0 Baso % (Auto) 0.1 Absolute Neuts (auto) 4.8 Absolute Lymphs (auto) 1.51 Nucleated RBC % 0 Sodium 141 Potassium 3.6 Chloride 105 Carbon Dioxide 28.0 Anion Gap 8 BUN 20 H Creatinine 1.22 H Estim Creat Clear Calc 34.20 Est GFR (MDRD) Af Amer 55 L Est GFR (MDRD) Non-Af 45 L BUN/Creatinine Ratio 16.4 Glucose 144 H Calcium 9.2 Troponin I High Sens 9 11 Radiography Diagnostic Testing: Clinical Impression(s) from Imaging Studies Chest X-Ray 01/20/22 23:39 IMPRESSION: 1. Mild fibrotic or recurrent infiltrative process in the medial right lower lobe, the site of a pneumonia on 07/28/2021. 2. Mild cardiomegaly without heart failure. 3. No other evidence of active cardiopulmonary disease. 4. Mild demineralization. Electronically Signed: Wilbur Curran MD at 0:36 EDT , Rhythm Strip Rhythm Strip: A-fib Rate: 120 Ectopy: None EKG Initial EKG: Attestation: I personally reviewed and interpreted this EKG as follows: Interpretation: Sinus Tachycardia, AV Block (1st deg) and Non-Specific ST Changes Prior EKG tracings: available for review Prior: Unchanged (w/r/t morphology) Discharge Plan Triage Chief Complaint: Chest Pain ED Provider: Michael Park Dx/Rx/DC Orders Clinical Impression: Paroxysmal atrial fibrillation with rapid ventricular response Instructions: ED AFIB Prescriptions: No Action anastrozole 1 mg tablet 1 mg PO DAILY omeprazole 20 MG capsule 20 mg PO DAILY Label Comments: DECREASES ACID IN THE STOMACH albuterol sulfate 1 PUFF inhaler 2 puff INHALATION Q4H PRN PRN (Reason: Asthma) Label Comments: copd zolpidem 12.5 MG tablet,ext release multiphase 6.25 mg PO QHS PRN PRN (Reason: Insomnia) calcium citrate-vitamin D3 1 EACH tablet 2 tab PO DAILY hydrocodone-acetaminophen 5-325 mg tablet 1 tab PO BID PRN (Reason: Pain) Label Comments: TAKE 1 TABLET BY MOUTH THREE TIMES DAILY acetaminophen 650 mg Tablet Extended Release 1,200 mg PO DAILY PRN (Reason: Pain) Prolia 60 mg/mL Syringe 60 mg SUBCUT .[id number] pravastatin 20 mg tablet 20 mg PO QHS Label Comments: TAKE 1 TABLET BY MOUTH EVERY DAY AT BEDTIME Eliquis 5 mg tablet 5 mg PO BID Label Comments: TAKE 1 TABLET BY MOUTH TWICE DAILY furosemide 40 mg Tablet 40 mg PO DAILY Qty: 30 2RF amoxicillin-pot clavulanate 875-125 mg Tablet 875 mg PO BID Qty: 2 0RF sotalol 80 mg tablet 80 mg PO BID Qty: 60 11RF potassium chloride 10 mEq tablet extended release 10 meq PO DAILY Qty: 90 3RF diltiazem HCl [Cardizem CD] 120 mg capsule,extended release 24hr 120 mg PO BID Qty: 180 3RF Primary Care Provider: Jessica Aguero Referrals: Jessica Aguero, [Primary Care Provider] - (or your recreation programmer after the weekend) Activity Restrictions/Additional Instructions: Stay on your current medications and do not forget to take them. Disposition Disposition: Home, Self Care
[2022-01-20 23:46] VITALS: O2SAT 95
[2022-01-20] MEDS: dilTIAZem 25 MG/5 ML Vial 15 MG IV BOLUS (23:50)
[2022-01-20 23:52] LABS: Absolute Lymphocyte Count 1.51 X10^3/uL (0.83-4.51); Absolute Neutrophil Count 4.8 X10^3/uL (2.0-7.7); Basophil# 0.01 X10^3/uL; Basophil% 0.1 % (0-1); Eosinophil# 0.22 X10^3/uL; Hematocrit 35.4 % (37-47); Hemoglobin 11.4 g/dL (12.0-15.0); Lymphocyte # 1.51 X10^3/ul (0.83-4.51); Lymphocyte % 20.8 % (19-41); Mean Corp Hgb Conc 32.2 g/dL (32-36); Mean Corpuscular Hgb 29.8 pg (27.0-32.0); Mean Corpuscular Volume 92.7 fL (81-99); Monocyte# 0.68 X10^3/uL; Monocyte% 9.4 % (0-10); NRBC Flagged by Analyzer 0 % (0-5); Neutrophil % 66.1 % (47-70); Platelet Count 187 K/mm3 (150-450); RBC Distribution Width CV 12.8 % (11.6-14.6); RBC Distribution Width SD 43.1 fl (35.1-43.9); Red Blood Count 3.82 M/mm3 (4.2-5.4); White Blood Count 7.3 K/mm3 (4.4-11.0)
[2022-01-21 00:11] LABS: Anion Gap 8 (5-15); BUN 20 mg/dL (7-18); BUN/Creat Ratio 16.4 RATIO (10-20); Calcium,Total 9.2 mg/dL (8.5-10.1); Chloride 105 mmol/L (98-107); Creatinine, Serum 1.22 mg/dL (0.55-1.02); EST Glomerular Filtration Rate 45 mL/min (>60); Est Glom Filt Rate - Afr Amer 55 mL/min (>60); Glucose 144 mg/dL (74-106); Potassium 3.6 mmol/L (3.5-5.1); Sodium Level 141 mmol/L (136-145); Troponin-I HS (w/2H Reflex) 9 pg/mL (3.0-54.0)
[2022-01-21 01:24] VITALS: BP 118/67; PULSE 91; RESP 23; O2SAT 96
[2022-01-21 01:49] LABS: Reflex Troponin-HS? (from REC) Y
[2022-01-21 02:29] LABS: Troponin-I HS 11 pg/mL (3.0-54.0)
[2022-01-21 03:13] VITALS: BP 139/84; PULSE 87; RESP 16; O2SAT 95
== END 2022-01-21 03:14 | disposition home or self-care (01) ==
PROVIDERS: Emergency Provider Emergency Medicine; PCP Internal Medicine; Visit Provider Emergency Medicine
DX: I48.0 Paroxysmal atrial fibrillation (principal); J44.9 Chronic obstructive pulmonary disease, unspecified; I10 Essential (primary) hypertension; E78.00 Pure hypercholesterolemia, unspecified; G47.33 Obstructive sleep apnea (adult) (pediatric); I25.10 Atherosclerotic heart disease of native coronary artery without angina pectoris; E66.9 Obesity, unspecified; Z79.01 Long term (current) use of anticoagulants; Z79.899 Other long term (current) drug therapy
CPT/HCPCS: 71045; 80048; 84484; 85025; 93005; 96374; 99285; A4216

== ENCOUNTER → 2022-01-29 | Outpatient (CLI) | payer MEDICARE, MEDICAID, SELFPAY ==
[2022-01-29 16:25] LABS: Amphetamine Urine VISTA NEGATIVE (<1000 ng/mL); Barbiturate Urine VISTA NEGATIVE (< 200 ng/mL); Benzodiazepine Urine VISTA NEGATIVE (< 200 ng/mL); Cocaine Urine VISTA NEGATIVE (< 300 ng/mL); Ecstacy Urine VISTA NEGATIVE (< 500 ng/mL); Methadone Urine VISTA NEGATIVE (< 300 ng/mL); PCP Urine VISTA NEGATIVE (< 25 ng/mL); THC Urine VISTA NEGATIVE (< 50 ng/mL); Vista UDS pH Range 4
== END | disposition home or self-care (01) ==
LOC: LAB 15:19
PROVIDERS: PCP Internal Medicine; Referring Provider Anesthesiology Pain Medicine; Visit Provider Anesthesiology Pain Medicine
DX: F11.20 Opioid dependence, uncomplicated (principal)
CPT/HCPCS: 80307

== ENCOUNTER 2022-05-31 14:02 | Emergency (ER) | payer MEDICARE, MEDICAID, SELFPAY ==
[2022-05-31] VITALS (8 sets, daily range): BP systolic 106–138; BP diastolic 66–85; PULSE 80–133; RESP 16–22; TEMP 36.4; O2SAT 95–100; BMI 29.9
--- NOTE | 2022-05-31 14:57 | EKG12_ITS ---
Test Reason : CP Blood Pressure : / mmHG Vent. Rate : 107 BPM Atrial Rate : 122 BPM P-R Int : 000 ms QRS Dur : 082 ms QT Int : 356 ms P-R-T Axes : 000 007 002 degrees QTc Int : 475 ms Atrial fibrillation Possible Inferior infarct , age undetermined Abnormal ECG Confirmed by AGUILAR GONZALEZ, YUE ([id number]), marketing editor ALEXEY BILLINGS ([id number]) on 06/05/2022 9:16:05 A M Referred By: Confirmed By:ISHAN SHEIKH MD
--- NOTE | 2022-05-31 14:58 | EX.ED.DYSGE1 ---
HPI History of Present Illness Chief Complaint: Dizziness Informant: patient Narrative Narrative: Patient sent in here after speaking with cardiology office for what she reports potential defibrillation in the ED. She has been dealing with atrial fibrillation for past 18 months. She is followed by Dr. Rick. She states she has been cardioverted previously. She was on sotalol and diltiazem. She takes Eliquis twice a day. She was furred up to [employer] representative she had a scheduled cardiac ablation a week ago Saturday. Sotalol was held 5 days prior to procedure. She states she was in [facility]VR on her preprocedure appointment at . She was admitted with ablation the following day. She was discharged on Saturday. She states that evening she noted her abnormal rhythm again. She had fluctuating heart rates. She has been in contact with her EP physician Dr. Isabel, her Cardizem has been increased to 240 mg in the morning 120 at night she has an appointment this coming Saturday. She recalled cardiology's office today she was sent to the ED. Prior similar symptoms: Yes PFSH PFSH Medical History Anemia Anticoagulant long-term use Asthma Atherosclerotic heart disease of [place] coronary artery without angina pectoris Atrial fibrillation Bilateral pleural effusion CAD (coronary artery disease) Chemo-induced gastroenteritis Chemotherapy induced nausea and vomiting Chronic pain Colitis Constipation COPD (chronic obstructive pulmonary disease) Degenerative joint disease of right hip Depression Educational circumstance Encounter for screening for malignant neoplasm of colon Essential hypertension GERD (gastroesophageal reflux disease) Jody filter in place Heart failure, diastolic, chronic Hemorrhoid HTN (hypertension) Hx of deep vein thrombophlebitis of lower extremity Hyperlipidemia Insomnia Lumbar spondylosis Obesity Obstructive sleep apnea Osteoarthritis Osteoporosis Paroxysmal atrial fibrillation Personal history of pulmonary embolism port placement PORT REMOVAL Positive fecal occult blood test Primary cancer of right female breast Pure hypercholesterolemia PVD (peripheral vascular disease) Rectal prolapse Sepsis Thyroid cancer Home Medications albuterol sulfate 90 mcg/actuation aerosol inhaler 2 puff inhalation Q4H PRN PRN Asthma 06/16/13 [History Last Taken 12/26/21] omeprazole 20 mg capsule,delayed release 20 mg PO DAILY reflux 06/16/13 [History Last Taken 12/27/21] calcium citrate 315 mg calcium-vitamin D3 6.25 mcg (250 unit) tablet 2 tab PO DAILY SUPLEMENT 10/24/18 [History Last Taken 12/27/21] zolpidem 12.5 mg tablet,extended release,multiphase 6.25 mg PO QHS PRN PRN Insomnia 03/24/19 [History Last Taken 07/10/21] acetaminophen 650 mg tablet,extended release 1,200 mg PO DAILY PRN Pain 11/25/20 [History Last Taken 07/11/21] denosumab 60 mg/mL subcutaneous syringe (Prolia) 60 mg subcut .[id number] bones 11/25/20 [History Last Taken 12/03/21] hydrocodone-acetaminophen 5-325mg 5mg-325mg 1 tab PO BID PRN Pain 11/25/20 [History Last Taken 12/27/21] pravastatin 20 mg tablet 20 mg PO QHS CHOLESTEROL 04/28/21 [History Last Taken 12/27/21] potassium chloride 10 mEq tablet,extended release 10 meq PO DAILY #90 tabs 08/09/21 [Rx Last Taken 12/27/21] anastrozole 1 mg tablet 1 mg PO DAILY breast cancer 12/08/21 [History Last Taken 12/27/21] apixaban 5 mg tablet (Eliquis) 5 mg PO BID afib 12/28/21 [History Last Taken 12/27/21] amoxicillin 875 mg-potassium clavulanate 125 mg tablet 875 mg PO BID #2 tabs 01/03/22 [Rx Last Taken Unknown] furosemide 40 mg tablet 40 mg PO DAILY #90 tabs 05/02/22 [Rx Last Taken Unknown] diltiazem HCl 120 mg capsule,extended release 24 hr (Cardizem CD) 120 mg PO .COMPLEX afib #180 caps 05/31/22 [Rx Last Taken Unknown] Allergy/AdvReac Type Severity Reaction Status Date / Time niacin Allergy Intermediate I DON'T Verified 05/31/22 14:08 REMEMBER, I CAN'T TAKE IT bee venom protein (honey bee) Allergy Swelling Verified 05/31/22 14:08 Family History Brother Diabetes Heart disease Sister Breast cancer Mother Cancer brain and bone mets Aunt Breast cancer Grandmother Cancer Surgical History History of appendectomy History of cholecystectomy History of incisional hernia repair Hx of mastectomy S/P carpal tunnel release S/P cataract extraction S/P hysterectomy S/P lumbar discectomy S/P partial thyroidectomy S/P revision of total knee S/P right breast biopsy S/P total knee replacement Social History household members: none Smoking Status: Never smoker alcohol intake: never substance use type: does not use caffeine: No ROS ROS ED Constitutional Constitutional ED: Denies chills, fever(s) or sweats Eyes Eyes: Denies change in vision ENT ENT ED: Denies dysphagia or sore throat Cardiovascular Cardiovascular: Reports palpitations and racing heartbeat; Denies chest pain or leg edema Respiratory/Chest Respiratory/Chest: Denies cough, dyspnea or dyspnea on exertion Gastrointestinal Gastrointestinal: Denies abdominal pain, diarrhea, nausea or vomiting Genitourinary Genitourinary ED: Denies dysuria, hematuria or urinary frequency Musculoskeletal Musculoskeletal: Denies back pain, extremity pain or neck pain Integumentary Denies rash or wounds Neurologic Neurologic: Denies headache(s), paresthesias or weakness EXAM Physical Exam Const Vital Signs: 05/31/22 14:03 05/31/22 14:08 05/31/22 14:08 Temperature 97.5 F L Temperature Source Temporal Pulse Rate 133 H 111 H Pulse Rate [1 (Initial Baseline)] Pulse Rate [2] Respiratory Rate 18 18 Respiratory Rate [1 (Initial Baseline)] Respiratory Rate [2] Respiratory Effort Normal Respiratory Pattern Normal Blood Pressure 131/69 H 110/67 Blood Pressure [1 (Initial Baseline)] Blood Pressure [2] Blood Pressure Mean 89 81 Pulse Ox 97 96 Oxygen Delivery Method Room Air Oxygen Delivery Method [1 (Initial Baseline)] Oxygen Delivery Method [2] Oxygen Flow Rate (L/min) Oxygen Flow Rate (L/min) [1 (Initial Baseline)] 05/31/22 15:28 05/31/22 16:33 05/31/22 16:43 Temperature Temperature Source Pulse Rate 80 Pulse Rate [1 (Initial Baseline)] 113 H Pulse Rate [2] 84 Respiratory Rate 20 H Respiratory Rate [1 (Initial Baseline)] 16 Respiratory Rate [2] 20 H Respiratory Effort Respiratory Pattern Blood Pressure 138/75 H Blood Pressure [1 (Initial Baseline)] 106/85 H Blood Pressure [2] 135/73 H Blood Pressure Mean 96 Pulse Ox 98 Oxygen Delivery Method Nasal Cannula Nasal Cannula Oxygen Delivery Method [1 (Initial Baseline)] Nasal Cannula Oxygen Delivery Method [2] Nasal Cannula Oxygen Flow Rate (L/min) 2 2 Oxygen Flow Rate (L/min) [1 (Initial Baseline)] 2 05/31/22 16:44 05/31/22 16:49 05/31/22 16:54 Temperature Temperature Source Pulse Rate 81 80 81 Pulse Rate [1 (Initial Baseline)] Pulse Rate [2] Respiratory Rate 22 H 16 20 H Respiratory Rate [1 (Initial Baseline)] Respiratory Rate [2] Respiratory Effort Respiratory Pattern Blood Pressure 138/75 H 130/66 H 124/67 H Blood Pressure [1 (Initial Baseline)] Blood Pressure [2] Blood Pressure Mean Pulse Ox 99 100 97 Oxygen Delivery Method Nasal Cannula Room Air Room Air Oxygen Delivery Method [1 (Initial Baseline)] Oxygen Delivery Method [2] Oxygen Flow Rate (L/min) 2 Oxygen Flow Rate (L/min) [1 (Initial Baseline)] 05/31/22 18:07 Temperature Temperature Source Pulse Rate 82 Pulse Rate [1 (Initial Baseline)] Pulse Rate [2] Respiratory Rate 16 Respiratory Rate [1 (Initial Baseline)] Respiratory Rate [2] Respiratory Effort Respiratory Pattern Blood Pressure 117/79 Blood Pressure [1 (Initial Baseline)] Blood Pressure [2] Blood Pressure Mean Pulse Ox 99 Oxygen Delivery Method Oxygen Delivery Method [1 (Initial Baseline)] Oxygen Delivery Method [2] Oxygen Flow Rate (L/min) Oxygen Flow Rate (L/min) [1 (Initial Baseline)] Positive well nourished and well developed General Appearance ED: well developed and NAD HEENT Reports moist mucous membranes normocephalic and atraumatic Eyes PERRL, EOMs intact bilaterally and conjunctivae normal General Eye ED: Yes normal appearance of both eyes Neck no lymphadenopathy and supple General: Negative for tenderness Chest Wall Chest: Negative for tenderness Resp normal respiratory effort and normal air movement Effort and Inspection: symmetric chest movement; Negative for respiratory distress Cardio no murmurs Rate: tachycardic Rhythm: abnormal rhythm Peripheral Pulses: pulses 2+ throughout GI normal to inspection, nondistended, normoactive bowel sounds and non-tender Palpation: Negative for guarding or rebound tenderness present Back/Spine no CVA tenderness and no thoracic nor lumbar tenderness Extremity normal to inspection General Extremety ED: Negative for edema or tenderness General Extremity: Negative for edema Neuro oriented x3 and no sensory deficits noted Sensorium / Orientation: awake and alert Skin no rashes or lesions noted and no wounds MDM MDM MDM Narrative Medical decision making narrative: 6OrderPatient EKG A. fib on the monitor she is A. fib with RVR heart rate fluctuates 120s to 140s blood pressure stable. Pending. After evaluation I did speak with her crusher operator Dr. Rick, I discussed her history, he did state that treatment for recurrent A. fib after ablation would be cardioversion. Consent will be obtained from patient and discussion for plan sedation with cardioversion. Labs of significant potassium 3.3, orally replaced. Magnesium normal. Patient observed clinically awake, feeling better. Sinus rhythm on the monitor. Patient ambulate with her walker with no worsening symptoms. She will follow-up with her cardiology team as an outpatient. Discussed going back to her Cardizem 120 twice a day and not needing the 240 in the morning. All questions were answered. Procedure note: Direct-current cardioversion. Written consent with risks and benefits discussed. Timeout at 1637, atrial fibrillation heart rate 107 on the monitor. Blood pressure systolic 135. Propofol 40 mg was pushed at 1639. Patient monitored, 125 J of synchronized was given with noted success back to normal sinus rhythm. Patient tolerated procedure well. Repeat EKG was normal sinus rhythm. Lab Data Attestation: I reviewed the patient's lab results. Labs: Laboratory Results - last 24 hr 05/31/22 05/31/22 05/31/22 13:45 13:45 13:45 WBC 7.0 RBC 4.15 L Hgb 12.2 Hct 37.7 MCV 90.8 MCH 29.4 MCHC 32.4 RDW Std Deviation 42.5 RDW Coeff of Jenna 13.0 Plt Count 295 MPV 9.6 Immature Gran % (Auto) 0.400 Neut % (Auto) 67.5 Lymph % (Auto) 17.8 L [place] % (Auto) 12.0 H Eos % (Auto) 2.0 Baso % (Auto) 0.3 Absolute Neuts (auto) 4.7 Absolute Lymphs (auto) 1.25 Nucleated RBC % 0 PT 16.6 H INR 1.4 APTT 34.0 Sodium 139 Potassium 3.3 L Chloride 100 Carbon Dioxide 29.0 Anion Gap 10 BUN 23 H Creatinine 1.13 H Estim Creat Clear Calc 36.92 Est GFR (MDRD) Af Amer 60 Est GFR (MDRD) Non-Af 49 L BUN/Creatinine Ratio 20.4 H Glucose 114 H Calcium 10.3 H Magnesium 1.9 EKG Initial EKG: Attestation: I personally reviewed and interpreted this EKG as follows: Comments: A. fib 107, no ST or T wave changes. Follow-up EKG: Attestation: I personally reviewed and interpreted this EKG as follows: Comments: At 1640 after cardioversion. Sinus rate of 79, first-degree AV block. No ST changes. Discharge Plan Triage Chief Complaint: Dizziness ED Provider: Jarred Root Dx/Rx/DC Orders Clinical Impression: Atrial fibrillation status post cardioversion, HTN (hypertension), Heart failure, diastolic, chronic, S/P ablation of atrial fibrillation, Acute hypokalemia Instructions: AFib Dc, ED Cardioversion, Electrical, ED Procedural Sedation, (Adult) Prescriptions: No Action anastrozole 1 mg tablet 1 mg PO DAILY omeprazole 20 MG capsule 20 mg PO DAILY Label Comments: DECREASES ACID IN THE STOMACH albuterol sulfate 1 PUFF inhaler 2 puff INHALATION Q4H PRN PRN (Reason: Asthma) Label Comments: copd zolpidem 12.5 MG tablet,ext release multiphase 6.25 mg PO QHS PRN PRN (Reason: Insomnia) calcium citrate-vitamin D3 1 EACH tablet 2 tab PO DAILY hydrocodone-acetaminophen 5-325 mg tablet 1 tab PO BID PRN (Reason: Pain) Label Comments: TAKE 1 TABLET BY MOUTH THREE TIMES DAILY acetaminophen 650 mg Tablet Extended Release 1,200 mg PO DAILY PRN (Reason: Pain) Prolia 60 mg/mL Syringe 60 mg SUBCUT .[id number] pravastatin 20 mg tablet 20 mg PO QHS Label Comments: TAKE 1 TABLET BY MOUTH EVERY DAY AT BEDTIME Eliquis 5 mg tablet 5 mg PO BID Label Comments: TAKE 1 TABLET BY MOUTH TWICE DAILY amoxicillin-pot clavulanate 875-125 mg Tablet 875 mg PO BID Qty: 2 0RF potassium chloride 10 mEq tablet extended release 10 meq PO DAILY Qty: 90 3RF furosemide 40 mg tablet 40 mg PO DAILY Qty: 90 3RF diltiazem HCl [Cardizem CD] 120 mg capsule,extended release 24hr 120 mg PO .COMPLEX Qty: 180 3RF Rx Instructions: 120 mg orally 2 in the am and 1 in the pm.; Primary Care Provider: Jessica Aguero Referrals: Jessica Aguero DO [Primary Care Provider] - Uziel Rick MD [Med Staff - Active Staff] - 3-5 Days Activity Restrictions/Additional Instructions: Status post direct-current cardioversion back to sinus rhythm. Go back to your diltiazem and 120 mg twice a day. Follow-up with crusher operator. Disposition Disposition: Home, Self Care
[2022-05-31 15:09] LABS: Absolute Lymphocyte Count 1.25 X10^3/uL (0.83-4.51); Absolute Neutrophil Count 4.7 X10^3/uL (2.0-7.7); Basophil# 0.02 X10^3/uL; Basophil% 0.3 % (0-1); Eosinophil# 0.14 X10^3/uL; Hematocrit 37.7 % (37-47); Hemoglobin 12.2 g/dL (12.0-15.0); Lymphocyte # 1.25 X10^3/ul (0.83-4.51); Lymphocyte % 17.8 % (19-41); Mean Corp Hgb Conc 32.4 g/dL (32-36); Mean Corpuscular Hgb 29.4 pg (27.0-32.0); Mean Corpuscular Volume 90.8 fL (81-99); Mean Platelet Vol. 9.6 fl (6.2-12.0); Monocyte# 0.84 X10^3/uL; NRBC Flagged by Analyzer 0 % (0-5); Neutrophil # 4.73 X10^3/uL (2.7-7.7); Neutrophil % 67.5 % (47-70); Platelet Count 295 K/mm3 (150-450); RBC Distribution Width SD 42.5 fl (35.1-43.9); Red Blood Count 4.15 M/mm3 (4.2-5.4)
[2022-05-31 15:20] LABS: International Normalized Ratio 1.4; Prothrombin Time (Protime)PT. 16.6 SECONDS (11.7-14.9)
[2022-05-31 15:26] LABS: Anion Gap 10 (5-15); BUN 23 mg/dL (7-18); BUN/Creat Ratio 20.4 RATIO (10-20); Calcium,Total 10.3 mg/dL (8.5-10.1); Chloride 100 mmol/L (98-107); Creatinine, Serum 1.13 mg/dL (0.55-1.02); EST Glomerular Filtration Rate 49 mL/min (>60); Est Glom Filt Rate - Afr Amer 60 mL/min (>60); Estimated Creatinine Clearance 36.92 ml/min; Glucose 114 mg/dL (74-106); Magnesium 1.9 mg/dL (1.6-2.6); Potassium 3.3 mmol/L (3.5-5.1); Sodium Level 139 mmol/L (136-145)
[2022-05-31] MEDS: 0.9% Normal Saline 1,000 ML 15 ML IV (15:28)
--- NOTE | 2022-05-31 15:29 | ED.RN ---
SETUP FOR CARDIOVERSION. CONSENT SIGNED. PLACED ON 2L O2 FOR PROCEDURE
--- NOTE | 2022-05-31 16:43 | EKG12_ITS ---
Test Reason : REPEAT Blood Pressure : / mmHG Vent. Rate : 079 BPM Atrial Rate : 079 BPM P-R Int : 248 ms QRS Dur : 076 ms QT Int : 404 ms P-R-T Axes : 081 -07 038 degrees QTc Int : 463 ms Sinus rhythm with 1st degree A-V block with Premature atrial complexes Otherwise normal ECG Confirmed by AGUILAR GONZALEZ, YUE ([id number]), editor in chief newspaper [employer] ([id number]) on 06/05/2022 9:16:20 A M Referred By: Confirmed By:ISHAN SHEIKH MD
[2022-05-31] MEDS: Propofol 200 MG/20 ML Vial IV BOLUS (16:54)
[2022-05-31] MEDS: Potassium Chloride Oral Tablet 20 MEQ 40 MEQ PO (16:58)
== END 2022-05-31 18:23 | disposition home or self-care (01) ==
PROVIDERS: Emergency Provider Emergency Medicine; PCP Internal Medicine; Visit Provider Emergency Medicine
DX: I48.91 Unspecified atrial fibrillation (principal); J44.9 Chronic obstructive pulmonary disease, unspecified; I11.0 Hypertensive heart disease with heart failure; I50.32 Chronic diastolic (congestive) heart failure; E87.6 Hypokalemia; R42 Dizziness and giddiness; E78.5 Hyperlipidemia, unspecified; I25.10 Atherosclerotic heart disease of native coronary artery without angina pectoris; R00.2 Palpitations; Z79.01 Long term (current) use of anticoagulants
CPT/HCPCS: 80048; 83735; 85025; 85610; 85730; 93005; 99285; J7030; A4216

== ENCOUNTER 2022-06-16 20:19 | Observation (INO) | payer MEDICARE, MEDICAID, SELFPAY ==
[2022-06-16 20:21] VITALS: BP 132/81; PULSE 72; RESP 16; TEMP 37; O2SAT 95; BMI 30.7
--- NOTE | 2022-06-16 21:03 | RAD_ITS ---
EXAM: XR PELVIS, 1 OR 2 VIEWS CLINICAL INDICATION: fall TECHNIQUE: Frontal view of the pelvis. This report was created using [employer] report generation technology. COMPARISON: None. FINDINGS: BONES/JOINTS: There are severe degenerative changes in the right hip with joint space narrowing and sclerosis. No displaced fracture. Sacroiliac joints are unremarkable. No widening of the pubic symphysis. SOFT TISSUES: Unremarkable. No soft tissue swelling or gas. RAD/Pelvis 1 or 2 Views IMPRESSION: No acute osseous abnormalities. There are severe degenerative changes in the right hip with joint space narrowing. Electronically Signed: Kendall Wu MD at 23:00 EST ,
--- NOTE | 2022-06-16 21:03 | RAD_ITS ---
EXAM: XR LUMBOSACRAL SPINE, 2 OR 3 VIEWS CLINICAL INDICATION: fall TECHNIQUE: Frontal and lateral views of the lumbar spine and sacrum. This report was created using [employer] report [employer] technology. COMPARISON: None. FINDINGS: VERTEBRAE: There is posterior fusion of L2 and L3. There are postsurgical changes from bilateral laminectomy from L2 through L5. There are flowing osteophytes. Preserved vertebral body height. No fracture. No spondylolisthesis. Preservation of the normal lumbar lordosis. No significant facet arthropathy. DISC SPACES: No acute findings. Disc spaces are maintained. GASTROINTESTINAL TRACT: Unremarkable as visualized. Included bowel gas pattern is non-obstructive. RAD/Lumbar Spine 2 or 3 Views IMPRESSION: No acute osseous abnormalities. There are postsurgical changes in the upper lumbar spine. Electronically Signed: Kendall Wu MD at 23:21 EST ,
--- NOTE | 2022-06-16 21:03 | EKG12_ITS ---
Test Reason : FALL Blood Pressure : / mmHG Vent. Rate : 072 BPM Atrial Rate : 000 BPM P-R Int : 000 ms QRS Dur : 076 ms QT Int : 426 ms P-R-T Axes : 000 013 046 degrees QTc Int : 466 ms Normal sinus rhythm Nonspecific ST abnormality Abnormal ECG Confirmed by MISTY GONZALEZ, JILL ([id number]), editor magazine [employer] ([id number]) on 06/18/2022 12:00:45 PM Referred By: Confirmed By:JILL JAY MD
--- NOTE | 2022-06-16 21:06 | ED.VIS.FALL ---
HPI HPI - Fall History of Present Illness Chief Complaint: Fall Detail of Chief Complaint: Fell in the bathroom. Unable to get help. Informant: patient and family Occured/Mechanism Occurred: Today Mechanism/Context: Yes same level fall and Yes cannot recall fall Usually ambulates: Walker Pain/Injury Pain Location: back Quality of Pain: Dull and Aching Current Severity: Mild Maximum Severity: Mild Associated Symptoms Associated Symptoms: Negative for Parasthesias, Loss of function, Loss of consciousness or Amnesia Narrative Narrative: 76-year-old female history of thyroid cancer, CAD, COPD history of AJia peña had an ablation done at [facility] several weeks ago is currently on Eliquis. Says she is recently and feeling well. Denies any nausea, vomiting, diarrhea or fever. No dysuria. States today she was on the toilet she lives alone at home. When she went to get up lost her balance felt weak and went down. Did not hit her head. No LOC lives at home with her. It took her several hours to scoot from the bathroom into her bedroom. She called her son and then called 911 to be brought in. She does not think she hit her head. She had no LOC. No headache or neck pain. Complains of pain in her lower back and pelvis. Denies any recent illness. Prior similar symptoms: No Recent Illness/Hospitalization: No PFSH PFSH Medical History Anemia Anticoagulant long-term use Asthma Atherosclerotic heart disease of [place] coronary artery without angina pectoris Atrial fibrillation Bilateral pleural effusion CAD (coronary artery disease) Chemo-induced gastroenteritis Chemotherapy induced nausea and vomiting Chronic pain Colitis Constipation COPD (chronic obstructive pulmonary disease) Degenerative joint disease of right hip Depression Educational circumstance Encounter for screening for malignant neoplasm of colon Essential hypertension GERD (gastroesophageal reflux disease) [place] filter in place Heart failure, diastolic, chronic Hemorrhoid HTN (hypertension) Hx of deep vein thrombophlebitis of lower extremity Hyperlipidemia Insomnia Lumbar spondylosis Obesity Obstructive sleep apnea Osteoarthritis Osteoporosis Paroxysmal atrial fibrillation Personal history of pulmonary embolism port placement PORT REMOVAL Positive fecal occult blood test Primary cancer of right female breast Pure hypercholesterolemia PVD (peripheral vascular disease) Rectal prolapse Sepsis Thyroid cancer Home Medications albuterol sulfate 90 mcg/actuation aerosol inhaler 2 puff inhalation Q4H PRN PRN Asthma 06/16/13 [History Last Taken 12/26/21] omeprazole 20 mg capsule,delayed release 20 mg PO DAILY reflux 06/16/13 [History Last Taken 12/27/21] calcium citrate 315 mg calcium-vitamin D3 6.25 mcg (250 unit) tablet 2 tab PO DAILY SUPLEMENT 10/24/18 [History Last Taken 12/27/21] zolpidem 12.5 mg tablet,extended release,multiphase 6.25 mg PO QHS PRN PRN Insomnia 03/24/19 [History Last Taken 07/10/21] acetaminophen 650 mg tablet,extended release 1,200 mg PO DAILY PRN Pain 11/25/20 [History Last Taken 07/11/21] denosumab 60 mg/mL subcutaneous syringe (Prolia) 60 mg subcut .[id number] bones 11/25/20 [History Last Taken 12/03/21] hydrocodone-acetaminophen 5-325mg 5mg-325mg 1 tab PO BID PRN Pain 11/25/20 [History Last Taken 12/27/21] pravastatin 20 mg tablet 20 mg PO QHS CHOLESTEROL 04/28/21 [History Last Taken 12/27/21] potassium chloride 10 mEq tablet,extended release 10 meq PO DAILY #90 tabs 08/09/21 [Rx Last Taken 12/27/21] anastrozole 1 mg tablet 1 mg PO DAILY breast cancer 12/08/21 [History Last Taken 12/27/21] apixaban 5 mg tablet (Eliquis) 5 mg PO BID afib 12/28/21 [History Last Taken 12/27/21] furosemide 40 mg tablet 40 mg PO DAILY #90 tabs 05/02/22 [Rx Last Taken Unknown] diltiazem HCl 120 mg capsule,extended release 24 hr (Cardizem CD) 120 mg PO BID afib #180 caps 06/05/22 [Rx Last Taken Unknown] sotalol 80 mg tablet 80 mg PO BID #60 tabs 06/12/22 [Rx Last Taken Unknown] Allergy/AdvReac Type Severity Reaction Status Date / Time niacin Allergy Intermediate I DON'T Verified 06/16/22 20:26 REMEMBER, I CAN'T TAKE IT bee venom protein (honey bee) Allergy Swelling Verified 06/16/22 20:26 Family History Brother Diabetes Heart disease Sister Breast cancer Mother Cancer brain and bone mets Aunt Breast cancer Grandmother Cancer Surgical History History of appendectomy History of cholecystectomy History of incisional hernia repair Hx of mastectomy S/P carpal tunnel release S/P cataract extraction S/P hysterectomy S/P lumbar discectomy S/P partial thyroidectomy S/P revision of total knee S/P right breast biopsy S/P total knee replacement Social History household members: none Smoking Status: Never smoker alcohol intake: never substance use type: does not use caffeine: No ROS ROS ED ROS Narrative Denies recent illness. Constitutional Constitutional ED: Denies chills or fever(s) Eyes Eyes: Denies blurry vision ENT ENT ED: Denies ear pain Cardiovascular Cardiovascular: Denies chest pain Respiratory/Chest Respiratory/Chest: Denies cough or dyspnea Gastrointestinal Gastrointestinal: Denies abdominal pain Genitourinary Genitourinary ED: Denies dysuria or hematuria Musculoskeletal Musculoskeletal: Denies arthralgias Integumentary Denies abscess Neurologic Neurologic: Denies headache(s) Psychiatric Psychiatric: Denies anxiety Endocrine Endocrinology: Denies polydipsia Hematologic/Lymphatic Hematologic/Lymphatic: Denies easy bleeding Allergic/Immunologic Allergic/Immunologic ED: Denies mouth swelling or tongue swelling EXAM Physical Exam Narrative Exam Narrative: 76-year-old female no acute distress. Sitting upright in bed. Son in the room. H EENT exam unremarkable atraumatic nontender. Scalp nontender. C-spine nontender. Trachea midline. Lungs clear to auscultation bilaterally. Heart regular rate and rhythm rate about 70 no murmur. Chest wall nontender. Abdomen soft nontender. Pelvic girdle intact. Moving all 4 extremities. Prior right knee replacement well-healed. Dorsi plantarflexion intact. Normal canopy stringer strength. Neurologically she is awake alert. Answering questions following commands. She has reproducible pain in lumbar spine. Const Vital Signs: 06/16/22 20:21 06/16/22 20:28 06/16/22 22:49 Temperature 98.6 F Temperature Source Temporal Pulse Rate 72 69 Respiratory Rate 16 18 Respiratory Effort Normal Non-Labored Respiratory Pattern Normal Blood Pressure 132/81 H 128/58 H Blood Pressure Mean 98 81 Pulse Ox 95 97 Oxygen Delivery Method Room Air Room Air Positive well nourished, well developed and obese; Negative for cachectic, contractures or unkempt General Appearance ED: well developed and NAD; Negative for unkempt, cachectic or contractures Nutritional Appearance: obese; Negative for cachectic HEENT Reports normocephalic atraumatic; Negative for trauma, contusion, hematoma or tenderness Eyes PERRL and EOMs intact bilaterally General Eye ED: Negative for pale conjunctiva or scleral icterus Neck full ROM, no lymphadenopathy and supple General: Negative for tenderness Chest Wall inspection of chest normal and palpation of chest normal Chest: Negative for other Resp normal respiratory effort, no retractions and clear to auscultation bilaterally Effort and Inspection: Negative for pain with movement Auscultation: Negative for rales, rhonchi or wheezes Cardio regular rate, regular rhythm, S1 normal heart sound, S2 normal heart sound and no murmurs GI non-tender, non-distended and no masses Inspection: Negative for abdominal distention Auscultation: normoactive bowel sounds Palpation: Negative for soft, guarding or rebound tenderness present Back/Spine no CVA tenderness General Back: Negative for CVA tenderness Cervical Spine: Negative for cervical spine tenderness Lumbar Spine / Lower Back: lumbar spinal tenderness Neuro oriented x3, CN's II-XII intact bilaterally, moves all extremities, no focal motor deficits and no sensory deficits noted Aniket Coma Scale: document GCS findings Spontaneous Obeys Commands Oriented 15 Sensorium / Orientation: alert, oriented to person, oriented to place and oriented to time; Negative for orientation impaired, confused, lethargic or stuporous Motor Exam: strength 5/5 throughout Psych Appearance: Negative for unkempt Skin General Skin Exam: Negative for other Lesions: no lesions Rashes: no rashes Trauma: Negative for abrasion MDM MDM MDM Narrative Medical decision making narrative: 76-year-old female fell in the bathroom. Question if she is able to get up and walk. She was laying on the ground for hours like 5 to 6 hours. CPK and labs to be obtained. She has had no recent illness. Eventually we will try to ambulate her. Patient was treated with IV pain medications. Morphine and Zofran. We attempted to get her up and ambulatory she was unable to stand and get out of bed and ambulate. I will speak to the hospitalist about admission. Lab Data Attestation: I reviewed the patient's lab results. Lab results narrative: CBC shows elevated white count of 14.4. H&H of 12 and 37.6. Electrolytes show a gap of 6 BUN of 29 creatinine 1.2 which is her baseline. Glucose 162. CPK was only 132. Labs: Laboratory Results - last 24 hr 06/16/22 06/16/22 21:20 21:20 WBC 14.4 H RBC 4.10 L Hgb 12.0 Hct 37.6 MCV 91.7 MCH 29.3 MCHC 31.9 L RDW Std Deviation 42.2 RDW Coeff of Jenna 12.6 Plt Count 210 MPV 9.6 Immature Gran % (Auto) 0.800 Neut % (Auto) 85.6 H Lymph % (Auto) 5.4 L [place] % (Auto) 7.9 Eos % (Auto) 0.1 Baso % (Auto) 0.2 Absolute Neuts (auto) 12.3 H Absolute Lymphs (auto) 0.78 L Nucleated RBC % 0 Sodium 142 Potassium 3.7 Chloride 104 Carbon Dioxide 32.0 Anion Gap 6 BUN 29 H Creatinine 1.20 H Estim Creat Clear Calc 34.77 Est GFR (MDRD) Af Amer 56 L Est GFR (MDRD) Non-Af 46 L BUN/Creatinine Ratio 24.2 H Glucose 162 H Calcium 9.4 Total Creatine Kinase 132 Radiography Diagnostic Testing: Clinical Impression(s) from Imaging Studies Chest X-Ray 06/16/22 22:10 IMPRESSION: Cardiomegaly with vascular congestion. There is no focal consolidation. Electronically Signed: Kendall Wu MD at 22:45 EST , Chest x-ray, portable, single view interpreted myself shows no acute abnormality. Normal cardiac silhouette mediastinum. No infiltrate. Lumbar spine x-ray 2 views AP and lateral interpreted by myself shows chronic changes. Prior lumbar fusion. No acute fracture. No obvious depression. Pelvis x-ray, single view shows no acute fracture. No hip fractures nor any pubic rami fractures. Interpreted by myself. Rhythm Strip Rhythm Strip: Junctional rhythm Rate: 72 Ectopy: None EKG Initial EKG: Attestation: I personally reviewed and interpreted this EKG as follows: Interpretation: Junctional Comments: Junctional rhythm rate of 72. No acute signs of HI or ischemia. Discharge Plan Triage Chief Complaint: Fall ED Provider: Pito Sumner Dx/Rx/DC Orders Clinical Impression: Fall, Acute exacerbation of chronic low back pain, Unable to ambulate, History of atrial fibrillation, Chronic anticoagulation Prescriptions: No Action anastrozole 1 mg tablet 1 mg PO DAILY sotalol 80 mg tablet 80 mg PO BID Qty: 60 11RF omeprazole 20 MG capsule 20 mg PO DAILY Label Comments: DECREASES ACID IN THE STOMACH albuterol sulfate 1 PUFF inhaler 2 puff INHALATION Q4H PRN PRN (Reason: Asthma) Label Comments: copd zolpidem 12.5 MG tablet,ext release multiphase 6.25 mg PO QHS PRN PRN (Reason: Insomnia) calcium citrate-vitamin D3 1 EACH tablet 2 tab PO DAILY hydrocodone-acetaminophen 5-325 mg tablet 1 tab PO BID PRN (Reason: Pain) Label Comments: TAKE 1 TABLET BY MOUTH THREE TIMES DAILY acetaminophen 650 mg Tablet Extended Release 1,200 mg PO DAILY PRN (Reason: Pain) Prolia 60 mg/mL Syringe 60 mg SUBCUT .[id number] pravastatin 20 mg tablet 20 mg PO QHS Label Comments: TAKE 1 TABLET BY MOUTH EVERY DAY AT BEDTIME Eliquis 5 mg tablet 5 mg PO BID Label Comments: TAKE 1 TABLET BY MOUTH TWICE DAILY potassium chloride 10 mEq tablet extended release 10 meq PO DAILY Qty: 90 3RF furosemide 40 mg tablet 40 mg PO DAILY Qty: 90 3RF diltiazem HCl [Cardizem CD] 120 mg capsule,extended release 24hr 120 mg PO BID Qty: 180 3RF Primary Care Provider: Jessica Aguero Referrals: Jessica Aguero DO [Primary Care Provider] - Disposition Disposition: Acute Care Hospital [facility]
[2022-06-16] MEDS: 0.9% Normal Saline 1,000 ML 1000 ML IV (21:24)
[2022-06-16 21:30] LABS: Absolute Lymphocyte Count 0.78 X10^3/uL (0.83-4.51); Absolute Neutrophil Count 12.3 X10^3/uL (2.0-7.7); Basophil# 0.03 X10^3/uL; Basophil% 0.2 % (0-1); Eosinophil# 0.02 X10^3/uL; Eosinophils% 0.1 % (0-5); Hematocrit 37.6 % (37-47); Lymphocyte # 0.78 X10^3/ul (0.83-4.51); Lymphocyte % 5.4 % (19-41); Mean Corp Hgb Conc 31.9 g/dL (32-36); Mean Corpuscular Hgb 29.3 pg (27.0-32.0); Mean Corpuscular Volume 91.7 fL (81-99); Mean Platelet Vol. 9.6 fl (6.2-12.0); Monocyte# 1.13 X10^3/uL; Monocyte% 7.9 % (0-10); NRBC Flagged by Analyzer 0 % (0-5); Neutrophil # 12.28 X10^3/uL (2.7-7.7); Neutrophil % 85.6 % (47-70); Platelet Count 210 K/mm3 (150-450); RBC Distribution Width CV 12.6 % (11.6-14.6); RBC Distribution Width SD 42.2 fl (35.1-43.9); White Blood Count 14.4 K/mm3 (4.4-11.0)
[2022-06-16] MEDS: Ondansetron 4 MG/2 ML Vial IV (21:35)
[2022-06-16] MEDS: Morphine 4 MG/ML Syringe IV (21:36)
[2022-06-16 21:53] LABS: Anion Gap 6 (5-15); BUN 29 mg/dL (7-18); BUN/Creat Ratio 24.2 RATIO (10-20); CPK Total, Creatine Kinase 132 U/L (26-192); Calcium,Total 9.4 mg/dL (8.5-10.1); Chloride 104 mmol/L (98-107); EST Glomerular Filtration Rate 46 mL/min (>60); Est Glom Filt Rate - Afr Amer 56 mL/min (>60); Estimated Creatinine Clearance 34.77 ml/min; Glucose 162 mg/dL (74-106); Potassium 3.7 mmol/L (3.5-5.1); Sodium Level 142 mmol/L (136-145)
--- NOTE | 2022-06-16 22:10 | RAD_ITS ---
EXAM: XR CHEST, 1 VIEW CLINICAL INDICATION: weakness TECHNIQUE: Frontal view of the chest. This report was created using [employer] report generation technology. COMPARISON: 01/20/2022 FINDINGS: LUNGS AND PLEURAL SPACES: There is vascular congestion. No pneumothorax. No effusion. HEART: Cardiac silhouette is mildly enlarged in size. MEDIASTINUM: Central airways and mediastinal contour are unremarkable. BONES/JOINTS: Unremarkable. SOFT TISSUES: Unremarkable. RAD/Chest 1 View (Portable) IMPRESSION: Cardiomegaly with vascular congestion. There is no focal consolidation. Electronically Signed: Kendall Wu MD at 22:45 EST ,
[2022-06-16 22:49] VITALS: BP 128/58; PULSE 69; RESP 18; O2SAT 97
[2022-06-16 22:56] LABS: Color, Urine Yellow (Yellow); Glucose, Dipstick Normal (Normal); Ketone-Dipstick Negative (Negative); Leukocyte Esterase-Dipstick 25 /ul (Negative); Nitrite-Dipstick Negative (Negative); Occult Blood-Urine 10 /ul (Negative); Protein-Dipstick 15 mg/dl (Negative); Specific Gravity, Urine 1.015 (1.002-1.030); Urine Bilirubin Dipstick Negative (Negative); Urine Clarity Cloudy (Clear); Urine Urobilinogen Normal (Normal)
[2022-06-16 23:11] VITALS: BP 120/51; PULSE 65; RESP 18; TEMP 36.8; O2SAT 93
[2022-06-16 23:13] LABS: Bacteria 4+ /hpf (None Seen); Red Blood Cells-Urine 0-5 SEEN /hpf (0-5); Squamous Epithelial Cells - UA 0-5 SEEN /hpf (5-10); White Blood Cells 0-5 SEEN /hpf (0-5)
[2022-06-16 23:14] LABS: Mucous, Urine RARE /hpf (<or=2+)
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
[2022-06-17] VITALS (17 sets, daily range): BP systolic 99–118; BP diastolic 49–69; PULSE 56–69; RESP 16–22; TEMP 36.6–37.3; O2SAT 83–96; BMI 30.3
[2022-06-17] MEDS: 0.9% Saline Lock 10 ML Syringe IV ×2 (01:54→21:16)
[2022-06-17] MEDS: Menthol/Lanolin/Calamine/Znox 113 GM Tube 1 APPLIC TOPICAL ×3 (01:54→21:40)
[2022-06-17] MEDS: Morphine 2 MG/ML Syringe IV (01:54)
[2022-06-17] MEDS: HYDROcodone Bitartrate/Apap 5/325 Tablet PO (05:34)
[2022-06-17] MEDS: Potassium Chloride Oral Tablet 10 MEQ PO (09:57)
[2022-06-17] MEDS: Calcium Carb/Vitamin D 1 TABLET Tablet PO (09:57)
[2022-06-17] MEDS: dilTIAZem CD 120 MG Capsule PO ×2 (09:58→21:15)
[2022-06-17] MEDS: Sotalol Hydrochloride 80 MG Tablet PO ×2 (09:58→21:14)
[2022-06-17] MEDS: Anastrozole 1 MG TABLET PO (09:58)
[2022-06-17] MEDS: APIXABAN 5 MG TABLET PO ×2 (09:59→21:15)
[2022-06-17] MEDS: Furosemide 40 MG Tablet PO (09:59)
[2022-06-17] MEDS: Pantoprazole Sodium 20 MG Tablet PO (09:59)
[2022-06-17] MEDS: Senna/Docusate Sodium 1 Tablet 2 TABLET PO ×2 (11:12→21:15)
[2022-06-17] MEDS: Acetaminophen 500 MG Tablet PO (14:19)
--- NOTE | 2022-06-17 14:20 | PN.HOSP_ITS ---
Subjective Subjective Follow-up on debility/fall: Patient was seen and examined. She complains of generalized pain especially in her back and her limbs. She denied any dizziness or palpitations. She was found to be hypoxic this morning and put on 2L of oxygen. Objective Data Objective Data Vital Signs: Vital Signs Temp Pulse Resp BP Pulse Ox O2 Del Method O2 Flow Rate 98.7 F 64 18 115/49 L 93 Nasal Cannula 2 06/17/22 08:04 06/17/22 08:04 06/17/22 08:04 06/17/22 08:04 06/17/22 11:43 06/17/22 11:43 06/17/22 11:43 Oxygen Flow Rate (L/min) 2 Oxygen Delivery Method Nasal Cannula Weight: 82.6 kg Body Mass Index (BMI) 30.3 Intake & Output: Intake and Output for Last 24 Hours 06/15/22 06/16/22 06/17/22 23:59 23:59 23:59 Intake Total 1000 / 1000 440 / 440 Output Total 450 / 450 Balance 1000 / 1000 -10 / -10 Lab / Micro Data Result Diagrams: 06/16/22 21:20 06/16/22 21:20 Labs: Laboratory Results - last 24 hr 06/16/22 21:20: WBC 14.4 H, RBC 4.10 L, Hgb 12.0, Hct 37.6, MCV 91.7, MCH 29.3, MCHC 31.9 L, RDW Std Deviation 42.2, RDW Coeff of Jenna 12.6, Plt Count 210, MPV 9.6, Immature Gran % (Auto) 0.800, Neut % (Auto) 85.6 H, Lymph % (Auto) 5.4 L, [place] % (Auto) 7.9, Eos % (Auto) 0.1, Baso % (Auto) 0.2, Absolute Neuts (auto) 12.3 H, Absolute Lymphs (auto) 0.78 L, Nucleated RBC % 0 06/16/22 21:20: Sodium 142, Potassium 3.7, Chloride 104, Carbon Dioxide 32.0, Anion Gap 6, BUN 29 H, Creatinine 1.20 H, Estim Creat Clear Calc 34.77, Est GFR (MDRD) Af Amer 56 L, Est GFR (MDRD) Non-Af 46 L, BUN/Creatinine Ratio 24.2 H, Glucose 162 H, Calcium 9.4, Total Creatine Kinase 132 06/16/22 22:40: Urine Color Yellow, Urine Clarity Cloudy, Urine pH 5.0, Ur Sp ecific Manter 1.015, Urine Protein 15 H, Urine Glucose (UA) Normal, Urine Ke tones Negative, Urine Occult Blood 10 H, Urine Nitrite Negative, Urine Bilirubin Negative, Urine Urobilinogen Normal, Ur Leukocyte Esterase 25 H, Urine RBC 0-5 SEEN, Urine WBC 0-5 SEEN, Ur Squamous Epith Cells 0-5 SEEN, Urine Bacteria 4+, Urine Mucus RARE Radiography Diagnostic Testing: Radiology Impression Lumbar Spine X-Ray 06/16/22 21:03 IMPRESSION: No acute osseous abnormalities. There are postsurgical changes in the upper lumbar spine. Electronically Signed: Kendall Wu MD at 23:21 EST , Pelvis X-Ray 06/16/22 21:03 IMPRESSION: No acute osseous abnormalities. There are severe degenerative changes in the right hip with joint space narrowing. Electronically Signed: Kendall Wu MD at 23:00 EST , Chest X-Ray 06/16/22 22:10 IMPRESSION: Cardiomegaly with vascular congestion. There is no focal consolidation. Electronically Signed: Kendall Wu MD at 22:45 EST , Rhythm Strip Rhythm Strip: Junctional rhythm Rate: 72 Ectopy: None Physical Exam Narrative Physical exam: General: Alert, Oriented x3, Cooperative, obese, on 2 L of oxygen HEENT: Atraumatic Oral: Moist Mucosa Neck: Supple Lungs: Diminished to auscultation Cardiovascular: HS I+II, regular, no murmurs Abdomen: Bowel Sounds Present, Soft, Non Tender Extremities: Bilateral leg edema+1 Skin: No rashes, No breakdown Neurological: Grossly intact Psych/Mental Status: Appropriate Assessment & Plan Assessment/Plan (1) Unable to ambulate: PLAN: Plan 1. Debility, acute on chronic, patient unable to ambulate, complains of pain in her back and her leg Lumbar spine x-ray was unremarkable Pelvic x-ray showed severe degenerative changes in the right hip with joint s pace narrowing PT/OT to evaluate and treat Continue with current pain regimen with scheduled Tylenol, as needed oxycodone 2. Acute hypoxia likely secondary to acute fluid overload, on 2 L of oxygen Patient with underlying history of CHF/COPD/KWABENA/CHF; Patient not in acute CHF exacerbation Admitting chest x-ray shows fluid overload ; patient is on 40 mg p.o. Lasix daily Will add Lasix 20 mg IV x1 , encourage use of incentive spirometer 3. Paroxysmal atrial fibrillation/CAD/hypertension/hyperlipidemia Recently cardioverted in the ED on 05/31/2022 Follows up with [facility] and has been referred to EP in [facility]; status post ablation Continue on sotalol, Cardizem, Eliquis, statin 4. Breast CA, continue anastrozole 5. DVT prophylaxis?on Eliquis Charges/Coding Visit Charges Inpatient E&M: 09842 Subs Hosp L3
[2022-06-17] MEDS: Acetaminophen 500 MG Tablet 1000 MG PO ×2 (15:12→21:14)
[2022-06-17] MEDS: oxyCODONE 5 MG Tablet PO (15:12)
[2022-06-17] MEDS: Furosemide 20 MG/2 ML VIAL IV (15:13)
[2022-06-17] MEDS: Pravastatin 20 MG Tablet PO (21:15)
[2022-06-18] VITALS (13 sets, daily range): BP systolic 106–128; BP diastolic 52–62; PULSE 48–58; RESP 18; TEMP 36.5–36.8; O2SAT 94–99
[2022-06-18] MEDS: Acetaminophen 500 MG Tablet 1000 MG PO ×3 (06:06→21:21)
[2022-06-18] MEDS: Menthol/Lanolin/Calamine/Znox 113 GM Tube 1 APPLIC TOPICAL ×3 (06:08→21:22)
[2022-06-18] MEDS: Pantoprazole Sodium 20 MG Tablet PO (08:28)
[2022-06-18] MEDS: APIXABAN 5 MG TABLET PO ×2 (08:28→21:22)
[2022-06-18] MEDS: Senna/Docusate Sodium 1 Tablet 2 TABLET PO ×2 (08:28→21:22)
[2022-06-18] MEDS: dilTIAZem CD 120 MG Capsule PO ×2 (08:28→21:22)
[2022-06-18] MEDS: Potassium Chloride Oral Tablet 10 MEQ PO (08:29)
[2022-06-18] MEDS: Furosemide 40 MG Tablet PO ×2 (08:29→18:16)
[2022-06-18] MEDS: Sotalol Hydrochloride 80 MG Tablet PO ×2 (08:29→21:22)
[2022-06-18] MEDS: Calcium Carb/Vitamin D 1 TABLET Tablet PO (08:29)
[2022-06-18] MEDS: Anastrozole 1 MG TABLET PO (08:29)
[2022-06-18] MEDS: oxyCODONE 5 MG Tablet PO ×2 (10:08→21:25)
[2022-06-18] MEDS: Polyethylene Glycol 3350 17 GM PACKET PO (10:08)
--- NOTE | 2022-06-18 12:00 | CASEMGMT ---
RN IAN COAL DRIER OPERATOR CM to room to meet with patient for initial transition planning/care coordination assessment. MCKENNA SOSA introduced self and role at [facility]. Pt voices understanding and consents to assessment at this time. Pt sitting up in chair in room in no distress at this time. Pt is A/O at this time and answers all questions appropriately. Care providers, pharmacy, and demographics verified/updated at this time. PCP: Dr Aguero Specialists: Dr Bocanegra-pain mgmt, Dr Rick-cardiology, Dr Bell (?sp)-EPS @ [facility]. Preferred Pharmacy: [facility] Insurance: [facility] Prescription Benefit: Yes Living Will/HPOA: has LW and HCPOA, who are her sons, Yannick and Israel LNOK: sons, Yannick and Israel Living Arrangements: Lives alone in mobile home w/ramp entrance. Pt states she is able to dress self and sponge-bath's self. She manages her own medications. Family gets her groceries. Home mgmt tasks are becoming more difficult. Transportation: Family. DME: has the following DME: RTS, quad cane, adjustable bed, rails/grab bars, rollator, medical alert, nebulizer, pulse ox. HHC/SNF: Pt has been to [facility] and [facility] in the past. She states never wants to go back to [facility]. She is active w/[facility]. Pt states she does not think she can manage well @ home and would like to go to a SNF. She states [facility] is her 1st preference. ALFONSO Humphries, made aware. PLAN: SNF [facility] MCKENNA SOSA
[2022-06-18] MEDS: Nystatin Powder 15gm Bottle 1 APPLIC TOPICAL ×2 (14:24→21:22)
--- NOTE | 2022-06-18 16:03 | PN.HOSP_ITS ---
Subjective Subjective Follow-up for debility due to fall. Objective Data Objective Data Vital Signs: Vital Signs Temp Pulse Resp BP Pulse Ox O2 Del Method O2 Flow Rate 98.3 F 53 L 18 106/53 L 95 Nasal Cannula 2 06/18/22 14:30 06/18/22 14:30 06/18/22 14:30 06/18/22 14:30 06/18/22 14:30 06/18/22 14:30 06/18/22 14:30 Oxygen Flow Rate (L/min) 2 Oxygen Delivery Method Nasal Cannula Weight: 182 lb 1.629 oz Body Mass Index (BMI) 30.3 Intake & Output: Intake and Output for Last 24 Hours 06/16/22 06/17/22 06/18/22 23:59 23:59 23:59 Intake Total 1000 / 1000 680 / 900 220 / 220 Output Total 1000 / 1450 1150 / 1150 Balance 1000 / 1000 -320 / -550 -930 / -930 Lab / Micro Data Result Diagrams: 06/16/22 21:20 06/16/22 21:20 Rhythm Strip Rhythm Strip: Junctional rhythm Rate: 72 Ectopy: None Physical Exam Narrative Seen and examined. Patient fell off from her toilet seat. She had difficulty in getting up and took long time to to crawl back to get phone and called paramedics after that she was admitted. Physical exam General: Alert, Oriented x3, Cooperative HEENT: Atraumatic, PERRLA, EOMI, Normocephalic Oral: No Gingival or Mucosal Lesions/ Ulcerations Neck: Supple, No JVD, Negative Carotid Bruits Lungs: Air entry diminished in bilateral lung bases. No crepitation/rhonchi Cardiovascular: Irregular rate and rhythm, Normal S1, Normal S2, No murmurs Abdomen: Bowel Sounds Present, Soft, Non Tender, Non-Distended : No renal angle tenderness. No suprapubic tenderness. Extremities: Bilateral leg pitting edema, Capillary Refill Less than 3 Seconds Skin: No rashes, No breakdown Musculoskeletal/spine: Right TKR, ROM restricted with bilateral hip and left knee arthritis. No Tenderness to Palpation of Joints or Extremities Neurological: Cranial nerves II-XII grossly intact, DTR 2+/4 and Symmetrical, Neuro grossly intact Psych/Mental Status: Flat affect. Assessment & Plan Assessment/Plan (1) Unable to ambulate: PLAN: Plan This 76-year-old female who was admitted after she fell down from the toilet se at. 1. Debility, acute on chronic, patient unable to ambulate, complains of pain in her back and her leg: Patient was admitted to [facility]. Lumbar spine x-ray was unremarkable Pelvic x-ray showed severe degenerative changes in the right hip with joint space narrowing PT/OT to evaluate and treat patient might need SNF. Continue with current pain regimen with scheduled Tylenol, as needed oxycodone. 2. Acute hypoxia likely secondary to acute fluid overload, on 2 L of oxygen Patient with underlying history of CHF, COPD, KWABENA, chronic heart failure; Patient not in acute CHF exacerbation. 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 Last echo in July 2021 reported EF 55 to 60% mild AI no significant change from previous echo. Admitting chest x-ray shows fluid overload ; patient is on 40 mg p.o. Lasix daily increased to 40 mg twice daily. Continue incentive spirometer 3. Paroxysmal atrial fibrillation/CAD/hypertension/hyperlipidemia Recently cardioverted in the ED on 05/31/2022. Patient had ablation by Dr. Alcantara in [facility] few weeks ago but is still in A. fib. Continue on sotalol, Cardizem, Eliquis, statin 4. 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 She had delayed healing of the wound with whole therefore was started on chemotherapy late in November and she completed in late February. 5. DVT prophylaxis?on Eliquis Charges/Coding Visit Charges Inpatient E&M: 93084 Subs Hosp L2
--- NOTE | 2022-06-18 16:17 | CASEMGMT ---
Social Work SW received referral from RNCM that pt feels she cannot return home at d/c. SW met with pt and introduced self and role of SW. Pt confirmed she feels she will need SNF placement at discharge. A list of providers including quality and resource use data and consistent with the patient?s preferred geographic region, medical needs, and insurance network were provided from the [facility] Guide. Pt unable to make decision on preferred SNF at this time. Pt notified that SW will visit pt in the morning for decision on facility of choice. Pt in agreement. Phone call to [facility] and spoke with Ric in swine extension field specialist coverage. Pts spiritual care coordinator is Norma Wilson phone [phone]. . Pt does not have any active Waiver services. Pt is on the hard to staff list. SW to fax discharge summary and disposition to [facility] at time of discharge. Plan: SNF, will followup with pt tomorrow for SNF choice SABI Salcido
--- NOTE | 2022-06-18 16:26 | CASEMGMT ---
Social Work Pt states she has completed living will and health care POA naming her sons Israel and Yannick Lopes. Pt updated that documents are not on file and SW requested they be brought in for scanning. SABI Brothers
--- NOTE | 2022-06-18 16:53 | CHAPLAIN ---
Type of Pastoral Visit _x__ Initial Visit ___ Follow-up Visit ___ On-call Visit ___ General Patient Visit ___ Spiritual Assessment ___ Family Conference ___ Bereavement ___ Rapid Response ___ Code Blue ___ Other (describe below) Pastoral Care Referral From _x__ Patient ___ Family ___ Nurse ___ Physician ___ Supervisor Refractory Products ___ Supervising Editor [employer] ___ Other (describe below) Sacrament/Intervention _x__ Active listening ___ Anointing ___ Jehovah'S Witness ___ Bereavement ___ Communion _x__ Liz exploration ___ _x__ Life review _x__ Prayer ___ Reconciliation ___ Sacrament of Sick _x__ Supportive presence ___ Wedding ___ Other (describe below) Pastoral Comments patient specifically wanted spiritual care support; pt identifies as a Mandaeism with strong beliefs; pt is and speaks of her loss and changes in her life; pt receives presence and prayer
[2022-06-18] MEDS: Pravastatin 20 MG Tablet PO (21:22)
[2022-06-19] VITALS (11 sets, daily range): BP systolic 114–136; BP diastolic 55–67; PULSE 46–62; RESP 16–18; TEMP 36.3–36.6; O2SAT 92–98
[2022-06-19] MEDS: oxyCODONE 5 MG Tablet PO ×3 (05:33→23:29)
[2022-06-19] MEDS: Acetaminophen 500 MG Tablet 1000 MG PO ×3 (05:33→21:57)
[2022-06-19] MEDS: Menthol/Lanolin/Calamine/Znox 113 GM Tube 1 APPLIC TOPICAL ×3 (05:34→21:56)
[2022-06-19 06:05] LABS: Absolute Lymphocyte Count 1.48 X10^3/uL (0.83-4.51); Absolute Neutrophil Count 3.4 X10^3/uL (2.0-7.7); Basophil# 0.02 X10^3/uL; Basophil% 0.3 % (0-1); Eosinophil# 0.21 X10^3/uL; Eosinophils% 3.6 % (0-5); Hemoglobin 10.1 g/dL (12.0-15.0); Lymphocyte # 1.48 X10^3/ul (0.83-4.51); Lymphocyte % 25.5 % (19-41); Mean Corp Hgb Conc 31.6 g/dL (32-36); Mean Corpuscular Hgb 29.7 pg (27.0-32.0); Mean Corpuscular Volume 94.1 fL (81-99); Mean Platelet Vol. 10.7 fl (6.2-12.0); Monocyte# 0.69 X10^3/uL; Monocyte% 11.9 % (0-10); NRBC Flagged by Analyzer 0 % (0-5); Neutrophil # 3.38 X10^3/uL (2.7-7.7); Neutrophil % 58.2 % (47-70); POSITIVE COUNT YES; Platelet Count 178 K/mm3 (150-450); RBC Distribution Width CV 12.7 % (11.6-14.6); RBC Distribution Width SD 43.1 fl (35.1-43.9); White Blood Count 5.8 K/mm3 (4.4-11.0)
[2022-06-19 06:09] LABS: Differential Indicated SCAN CRITERIA MET
[2022-06-19 06:32] LABS: Anion Gap 6 (5-15); BUN 26 mg/dL (7-18); BUN/Creat Ratio 24.8 RATIO (10-20); Chloride 101 mmol/L (98-107); Creatinine, Serum 1.05 mg/dL (0.55-1.02); EST Glomerular Filtration Rate 54 mL/min (>60); Est Glom Filt Rate - Afr Amer 65 mL/min (>60); Estimated Creatinine Clearance 39.73 ml/min; Glucose 174 mg/dL (74-106); Potassium 3.8 mmol/L (3.5-5.1); Sodium Level 136 mmol/L (136-145)
[2022-06-19] MEDS: Senna/Docusate Sodium 1 Tablet 2 TABLET PO (08:04)
[2022-06-19] MEDS: Sotalol Hydrochloride 80 MG Tablet PO ×2 (08:04→21:57)
[2022-06-19] MEDS: dilTIAZem CD 120 MG Capsule PO ×2 (08:05→21:57)
[2022-06-19] MEDS: Calcium Carb/Vitamin D 1 TABLET Tablet PO (08:05)
[2022-06-19] MEDS: Anastrozole 1 MG TABLET PO (08:05)
[2022-06-19] MEDS: Potassium Chloride Oral Tablet 10 MEQ PO (08:06)
[2022-06-19] MEDS: Pantoprazole Sodium 20 MG Tablet PO (08:06)
[2022-06-19] MEDS: APIXABAN 5 MG TABLET PO ×2 (08:06→21:57)
[2022-06-19] MEDS: Nystatin Powder 15gm Bottle 1 APPLIC TOPICAL ×2 (08:06→21:56)
[2022-06-19] MEDS: Furosemide 40 MG Tablet PO (08:07)
[2022-06-19] MEDS: Polyethylene Glycol 3350 17 GM PACKET PO (08:10)
--- NOTE | 2022-06-19 10:24 | NURSING ---
pt refused janet wrap to right knee
[2022-06-19] MEDS: Spironolactone 25 MG Tablet PO (10:43)
--- NOTE | 2022-06-19 10:43 | CASEMGMT ---
Social Work SW in to meet with pt and discuss discharge plan. SW inquired if pt had made decision on which SNF is preference. Pt reports wanting to call [facility] to get some answers taken care of before providing choice. SW asked if pt would like to share questions in case SW could answer and pt declined you wouldn't know what I need to ask them. I just need more time right now. SW informed pt that SW would be back this afternoon to discuss. Pt stated don't come back before 4. SW will check back with pt tis afternoon. Darling Becerril, SABI
--- NOTE | 2022-06-19 10:53 | CASEMGMT ---
Notified Margot at [facility] that pt is planning to dc to SNF.
--- NOTE | 2022-06-19 12:02 | PN.HOSP_ITS ---
Subjective Subjective Follow-up for bilateral lower extremity swelling. Patient also had constipation did not move bowel for 5 days but had large bowel movement 2-3 times after Dulcolax 10 mg oral and suppository. Objective Data Objective Data Vital Signs: Vital Signs Temp Pulse Resp BP Pulse Ox O2 Del Method O2 Flow Rate 98 F 61 16 121/57 H 94 Room Air 2 06/19/22 11:12 06/19/22 11:57 06/19/22 11:12 06/19/22 11:12 06/19/22 11:12 06/19/22 11:12 06/19/22 05:31 Oxygen Flow Rate (L/min) 2 Oxygen Delivery Method Room Air Weight: 182 lb 1.629 oz Body Mass Index (BMI) 30.3 Intake & Output: Intake and Output for Last 24 Hours 06/17/22 06/18/22 06/19/22 23:59 23:59 23:59 Intake Total 680 / 900 220 / 520 950 / 950 Output Total 1000 / 1450 1150 / 1150 300 / 300 Balance -320 / -550 -930 / -630 650 / 650 Lab / Micro Data Result Diagrams: 06/19/22 05:07 06/19/22 05:07 Labs: Laboratory Results - last 24 hr 06/19/22 05:07: WBC 5.8, RBC 3.40 L, Hgb 10.1 L, Hct 32.0 L, MCV 94.1, MCH 29.7, MCHC 31.6 L, RDW Std Deviation 43.1, RDW Coeff of Jenna 12.7, Plt Count 178, MPV 10.7, Immature Gran % (Auto) 0.500, Neut % (Auto) 58.2, Lymph % (Auto) 25.5, [place] % (Auto) 11.9 H, Eos % (Auto) 3.6, Baso % (Auto) 0.3, Absolute Neuts (auto) 3.4, Absolute Lymphs (auto) 1.48, Nucleated RBC % 0 06/19/22 05:07: Sodium 136, Potassium 3.8, Chloride 101, Carbon Dioxide 29.0, Anion Gap 6, BUN 26 H, Creatinine 1.05 H, Estim Creat Clear Calc 39.73, Est GFR (MDRD) Af Amer 65, Est GFR (MDRD) Non-Af 54 L, BUN/Creatinine Ratio 24.8 H, Glucose 174 H, Calcium 9.0 Rhythm Strip Rhythm Strip: Junctional rhythm Rate: 72 Ectopy: None Physical Exam Narrative Seen and examined. Patient concern of bilateral lower extremity edema. She has multiple 3/10 urgent right knee and is sensitive to touch. She moved her bowel. Physical exam General: Alert, Oriented x3, Cooperative HEENT: Atraumatic, PERRLA, EOMI, Normocephalic Oral: No Gingival or Mucosal Lesions/ Ulcerations Neck: Supple, No JVD, Negative Carotid Bruits Lungs: Air entry diminished in bilateral lung bases. No crepitation/rhonchi Cardiovascular: Irregular rate and rhythm, Normal S1, Normal S2, No murmurs Abdomen: Bowel Sounds Present, Soft, Non Tender, Non-Distended : No renal angle tenderness. No suprapubic tenderness. Extremities: Bilateral leg pitting edema, 2+ capillary Refill Less than 3 Seconds. Skin: Dry atrophic skin. Musculoskeletal/spine: Right TKR, ROM restricted with bilateral hip and left knee arthritis, predominantly right knee. Right knee is sensitive to touch. Neurological: Cranial nerves II-XII grossly intact, DTR 2+/4 and Symmetrical, muscle strength of bilateral knee and left knee 4/5, chronic weakness Psych/Mental Status: Flat affect. Assessment & Plan Assessment/Plan (1) Unable to ambulate: PLAN: Plan This 76-year-old female who was admitted after she fell down from the toilet seat. 1. Debility, acute on chronic, patient unable to ambulate, complains of pain in her back and her leg: Patient was admitted to [facility]. Lumbar spine x-ray was unremarkable Pelvic x-ray showed severe degenerative changes in the right hip with joint space narrowing PT/OT to evaluate and treat patient might need SNF. Continue with current pain regimen with scheduled Tylenol, as needed oxycodone. 06/19: Discussed with disability case manager for rehab. 2. Acute hypoxia likely secondary to acute fluid overload, on 2 L of oxygen Patient with underlying history of CHF, COPD, KWABENA, chronic heart failure; Patient not in acute CHF exacerbation. 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 Last echo in July 2021 reported EF 55 to 60% mild AI no significant change from previous echo. Admitting chest x-ray shows fluid overload ; patient is on 40 mg p.o. Lasix daily increased to 40 mg twice daily. Continue incentive spirometer 06/19:Patient did not had good urine output with oral Lasix therefore Lasix changed to 40 mg IV twice daily. Spironolactone 25 mg added. Monitor electrolytes. Heart failure core measures including intake and output, fluid restriction less than 1500 mL, daily weight monitoring, kidney and electrolytes monitoring 3. Paroxysmal atrial fibrillation/CAD/hypertension/hyperlipidemia Recently cardioverted in the ED on 05/31/2022. Patient had ablation by Dr. Alcantara in [facility] few weeks ago but is still in A. fib. Continue on sotalol, Cardizem, Eliquis, statin 4. Breast CA, continue anastrozole: Patient had severe right cancer diagnosed in 2017 and had mastectomy. She had delayed healing of the wound with whole therefore was started on chemotherapy late in November and she completed in late February. 5. DVT prophylaxis?on Eliquis Charges/Coding Visit Charges Inpatient E&M: 58331 Subs Hosp L2
[2022-06-19 12:48] LABS: BNP,B-Type NATRIURETIC PEPTIDE 123.4 pg/mL (0-100)
[2022-06-19] MEDS: Furosemide 40 MG/4 ML Vial IV (13:19)
[2022-06-19] MEDS: 0.9% Saline Lock 10 ML Syringe IV (13:19)
--- NOTE | 2022-06-19 14:44 | CASEMGMT ---
Social Work SW in to speak with pt and discuss SNF option. Pt disgruntled, requesting SW leave her alone. SW attempted to discuss the need for timeliness in providing SNF choice as pt is medically ready or close to medically ready for discharge and insurance authorization will take time to obtain. Pt stated I'm going to see if my sister will come stay with me. I don't want to go to a [place] [facility] [place] facility. SW validated pt feelings and attempted to provide support. SW suggested beginning SNF referral and then if SNF is no longer needed after the next day or two canceling it. Pt refused to provide choices for SNF and stated I don't like that you are pressuring me. SW reassured pt that SW is not attempting to pressure pt. SW suggested discussing with pt's family and pt is not agreeable. SABI Bland
[2022-06-19] MEDS: Pravastatin 20 MG Tablet PO (21:57)
[2022-06-20] VITALS (12 sets, daily range): BP systolic 118–141; BP diastolic 51–96; PULSE 53–62; RESP 16–18; TEMP 36.5–36.9; O2SAT 92–95
[2022-06-20] MEDS: Menthol/Lanolin/Calamine/Znox 113 GM Tube 1 APPLIC TOPICAL ×3 (05:39→21:50)
[2022-06-20] MEDS: oxyCODONE 5 MG Tablet PO ×3 (05:39→21:46)
[2022-06-20] MEDS: Acetaminophen 500 MG Tablet 1000 MG PO ×3 (05:39→21:44)
[2022-06-20 06:59] LABS: Absolute Lymphocyte Count 1.28 X10^3/uL (0.83-4.51); Absolute Neutrophil Count 3.2 X10^3/uL (2.0-7.7); Basophil# 0.02 X10^3/uL; Basophil% 0.4 % (0-1); Eosinophil# 0.15 X10^3/uL; Eosinophils% 2.8 % (0-5); Hematocrit 30.3 % (37-47); Hemoglobin 9.7 g/dL (12.0-15.0); Lymphocyte # 1.28 X10^3/ul (0.83-4.51); Mean Corpuscular Hgb 29.3 pg (27.0-32.0); Mean Corpuscular Volume 91.5 fL (81-99); Mean Platelet Vol. 9.8 fl (6.2-12.0); Monocyte# 0.66 X10^3/uL; Monocyte% 12.4 % (0-10); NRBC Flagged by Analyzer 0 % (0-5); Neutrophil # 3.18 X10^3/uL (2.7-7.7); Neutrophil % 59.6 % (47-70); Platelet Count 209 K/mm3 (150-450); RBC Distribution Width CV 12.6 % (11.6-14.6); RBC Distribution Width SD 41.5 fl (35.1-43.9); Red Blood Count 3.31 M/mm3 (4.2-5.4); White Blood Count 5.3 K/mm3 (4.4-11.0)
[2022-06-20 07:23] LABS: Anion Gap 5 (5-15); BUN 23 mg/dL (7-18); BUN/Creat Ratio 22.1 RATIO (10-20); Calcium,Total 9.4 mg/dL (8.5-10.1); Chloride 99 mmol/L (98-107); Creatinine, Serum 1.04 mg/dL (0.55-1.02); EST Glomerular Filtration Rate 54 mL/min (>60); Est Glom Filt Rate - Afr Amer 66 mL/min (>60); Estimated Creatinine Clearance 40.12 ml/min; Glucose 157 mg/dL (74-106); Potassium 3.5 mmol/L (3.5-5.1); Sodium Level 139 mmol/L (136-145)
[2022-06-20] MEDS: Sotalol Hydrochloride 80 MG Tablet PO ×2 (09:05→21:43)
[2022-06-20] MEDS: Senna/Docusate Sodium 1 Tablet 2 TABLET PO ×2 (09:05→21:44)
[2022-06-20] MEDS: Calcium Carb/Vitamin D 1 TABLET Tablet PO (09:05)
[2022-06-20] MEDS: APIXABAN 5 MG TABLET PO ×2 (09:05→21:44)
[2022-06-20] MEDS: Nystatin Powder 15gm Bottle 1 APPLIC TOPICAL ×2 (09:06→21:49)
[2022-06-20] MEDS: Pantoprazole Sodium 20 MG Tablet PO ×2 (09:06→09:08)
[2022-06-20] MEDS: Spironolactone 25 MG Tablet PO (09:06)
[2022-06-20] MEDS: Anastrozole 1 MG TABLET PO (09:07)
[2022-06-20] MEDS: Furosemide 40 MG/4 ML Vial IV ×2 (09:08→16:25)
[2022-06-20] MEDS: dilTIAZem CD 120 MG Capsule PO ×2 (09:08→21:44)
[2022-06-20] MEDS: 0.9% Saline Lock 10 ML Syringe IV (09:12)
--- NOTE | 2022-06-20 09:42 | CASEMGMT ---
Social work SW in to pt room to discuss d/c plan. Pt was able to share that [facility] is preferred [facility]. SW informed Discharge dam tender assistant, Isa Pope, of choice. Isa to send referral to [facility]. PLAN: [facility], pending acceptance and precert SABI Bland
--- NOTE | 2022-06-20 09:48 | CASEMGMT ---
Discharge Aws Architect This parts data writer sent referral to Fl[facility] at [place] via [facility]. Tierra SMITH Commuter Train Operator
--- NOTE | 2022-06-20 10:01 | PN.HOSP_ITS ---
Subjective Subjective Follow-up for bilateral leg swelling, DVT. Objective Data Objective Data Vital Signs: Vital Signs Temp Pulse Resp BP Pulse Ox O2 Del Method O2 Flow Rate 97.8 F 60 16 128/51 H 95 Room Air 2 06/20/22 07:33 06/20/22 07:51 06/20/22 07:33 06/20/22 07:33 06/20/22 07:33 06/20/22 07:33 06/19/22 05:31 Oxygen Flow Rate (L/min) 2 Oxygen Delivery Method Room Air Weight: 182 lb 1.629 oz Body Mass Index (BMI) 30.3 Intake & Output: Intake and Output for Last 24 Hours 06/18/22 06/19/22 06/20/22 23:59 23:59 23:59 Intake Total 220 / 520 1200 / 1500 400 / 400 Output Total 1150 / 1150 400 / 700 500 / 500 Balance -930 / -630 800 / 800 -100 / -100 Lab / Micro Data Result Diagrams: 06/20/22 06:05 06/20/22 06:05 Labs: Laboratory Results - last 24 hr 06/19/22 05:07: B-Natriuretic Peptide 123.4 H 06/20/22 06:05: WBC 5.3, RBC 3.31 L, Hgb 9.7 L, Hct 30.3 L, MCV 91.5, MCH 29.3, MCHC 32.0, RDW Std Deviation 41.5, RDW Coeff of Jenna 12.6, Plt Count 209, MPV 9.8, Immature Gran % (Auto) 0.800, Neut % (Auto) 59.6, Lymph % (Auto) 24.0, [place] % (Auto) 12.4 H, Eos % (Auto) 2.8, Baso % (Auto) 0.4, Absolute Neuts (auto) 3.2, Absolute Lymphs (auto) 1.28, Nucleated RBC % 0 06/20/22 06:05: Sodium 139, Potassium 3.5, Chloride 99, Carbon Dioxide 35.0 H, Anion Gap 5, BUN 23 H, Creatinine 1.04 H, Estim Creat Clear Calc 40.12, Est GFR (MDRD) Af Amer 66, Est GFR (MDRD) Non-Af 54 L, BUN/Creatinine Ratio 22.1 H, Glucose 157 H, Calcium 9.4 Rhythm Strip Rhythm Strip: Junctional rhythm Rate: 72 Ectopy: None Physical Exam Narrative Seen and examined. Improvement in bilateral lower extremity edema. Last bowel movement yesterday. Physical exam General: Alert, Oriented x3, Cooperative HEENT: Atraumatic, PERRLA, EOMI, Normocephalic Oral: No Gingival or Mucosal Lesions/ Ulcerations Neck: Supple, No JVD, Negative Carotid Bruits Lungs: Air entry diminished in bilateral lung bases. No crepitation/rhonchi Cardiovascular: Irregular rate and rhythm, Normal S1, Normal S2, No murmurs Abdomen: Bowel Sounds Present, Soft, Non Tender, Non-Distended : No renal angle tenderness. No suprapubic tenderness. Extremities: Bilateral leg pitting edema, 2+ capillary Refill Less than 3 Seconds. Skin: Dry atrophic skin. Musculoskeletal/spine: Right TKR,3 times revision, ROM restricted with bilateral hip and left knee arthritis, predominantly right knee. Right knee is sensitive to touch. Neurological: Cranial nerves II-XII grossly intact, DTR 2+/4 and Symmetrical, muscle strength of bilateral knee and left knee 4/5, chronic weakness Psych/Mental Status: Flat affect. Assessment & Plan Assessment/Plan (1) Unable to ambulate: PLAN: Plan This 76-year-old female who was admitted after she fell down from the toilet seat. 1. Debility, acute on chronic, patient unable to ambulate, complains of pain in her back and her leg: Patient was admitted to [facility]. Lumbar spine x-ray was unremarkable Pelvic x-ray showed severe degenerative changes in the right hip with joint space narrowing PT/OT to evaluate and treat patient might need SNF. Continue with current pain regimen with scheduled Tylenol, as needed oxycodone. 06/19: Discussed with rehabilitation case coordinator for rehab. 06/20: Patient just gave her options of SNF to rehabilitation case coordinator. Pre-CERT pending. 2. Acute hypoxia likely secondary to acute fluid overload, on 2 L of oxygen Patient with underlying history of CHF, COPD, KWABENA, chronic heart failure; Patient not in acute CHF exacerbation. 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 Last echo in July 2021 reported EF 55 to 60% mild AI no significant change from previous echo. Admitting chest x-ray shows fluid overload ; patient is on 40 mg p.o. Lasix daily increased to 40 mg twice daily. Continue incentive spirometer 06/19:Patient did not had good urine output with oral Lasix therefore Lasix changed to 40 mg IV twice daily. Spironolactone 25 mg added. Monitor electrolytes. Heart failure core measures including intake and output, fluid restriction less than 1500 mL, daily weight monitoring, kidney and electrolytes monitoring 06/20: Patient had good urine output with IV Lasix. Continue weight. Leg swelling is much improved. 3. Paroxysmal atrial fibrillation/CAD/hypertension/hyperlipidemia Recently cardioverted in the ED on 05/31/2022. Patient had ablation by Dr. Alcantara in [facility] few weeks ago but is still in A. fib. Continue on sotalol, Cardizem, Eliquis, statin 06/20: Heart rate is controlled. 4. Breast CA, continue anastrozole: Patient had severe right cancer diagnosed in 2017 and had mastectomy. She had delayed healing of the wound with whole therefore was started on chemotherapy late in November and she completed in late February. 5. DVT prophylaxis?on Eliquis Charges/Coding Visit Charges Inpatient E&M: 96222 Subs Hosp L2
--- NOTE | 2022-06-20 14:09 | CASEMGMT ---
Discharge Master Glazier This radio news writer reached out to [facility] for an update on referral. Flora at [facility] denied patient. [facility] is getting another choice from patient. Tierra SMITH Engineering Faculty
[2022-06-20] MEDS: Polyethylene Glycol 3350 17 GM PACKET PO (16:25)
[2022-06-20] MEDS: Pravastatin 20 MG Tablet PO (21:43)
[2022-06-21] VITALS (10 sets, daily range): BP systolic 121–152; BP diastolic 53–66; PULSE 52–63; RESP 14–16; TEMP 36.4–36.9; O2SAT 93–97
[2022-06-21] MEDS: Menthol/Lanolin/Calamine/Znox 113 GM Tube 1 APPLIC TOPICAL ×3 (06:34→21:28)
[2022-06-21] MEDS: Acetaminophen 500 MG Tablet 1000 MG PO ×3 (06:34→21:28)
[2022-06-21] MEDS: 0.9% Saline Lock 10 ML Syringe IV ×4 (06:35→17:18)
[2022-06-21] MEDS: oxyCODONE 5 MG Tablet PO ×3 (06:38→21:29)
--- NOTE | 2022-06-21 08:25 | CASEMGMT ---
Social Work SW spoke to pt regarding second choice for SNF. Pt concerned about [facility] being far away and family having to drive great distance to visit but states no other choice in this area feels comfortable at this time. Pt agreeable for SW to send referral to [facility]. SW sent referral to [facility] via [facility]. PLAN: [facility], pending acceptance and precert SABI Bland
[2022-06-21] MEDS: Calcium Carb/Vitamin D 1 TABLET Tablet PO (08:46)
[2022-06-21] MEDS: Nystatin Powder 15gm Bottle 1 APPLIC TOPICAL ×2 (08:47→21:28)
[2022-06-21] MEDS: Spironolactone 25 MG Tablet PO (08:47)
[2022-06-21] MEDS: APIXABAN 5 MG TABLET PO ×2 (08:47→21:28)
[2022-06-21] MEDS: Senna/Docusate Sodium 1 Tablet 2 TABLET PO ×2 (08:47→21:32)
[2022-06-21] MEDS: Anastrozole 1 MG TABLET PO (08:47)
[2022-06-21] MEDS: Sotalol Hydrochloride 80 MG Tablet PO ×2 (08:47→21:28)
[2022-06-21] MEDS: dilTIAZem CD 120 MG Capsule PO ×2 (08:47→21:28)
[2022-06-21] MEDS: Furosemide 40 MG/4 ML Vial IV ×2 (08:48→17:18)
--- NOTE | 2022-06-21 11:09 | CASEMGMT ---
Addendum entered by Darling Becerril 06/21/22 14:18: SW in to inform pt of acceptance at [facility]. Pt happy. Asked how transportation will work. SW explained the transportation process. Pt agreeable to go by ambulance. Pt declined for SW to call family and update about the plan. Stated would call sons later this night to update them. SABI Bland Original Note: Social work [facility] reached out. Willing to accept pt. SW informed pt is medically ready and precert can be started. SNF will start precert now. PLAN: [facility], pending precert SABI Bland
--- NOTE | 2022-06-21 13:59 | PCM.PN.HOSP ---
Subjective Subjective Follow-up for fall, leg swelling Objective Data Objective Data Vital Signs: Vital Signs Temp Pulse Resp BP Pulse Ox O2 Del Method O2 Flow Rate 97.8 F 63 16 134/63 H 95 Room Air 2 06/21/22 08:15 06/21/22 08:15 06/21/22 08:15 06/21/22 08:15 06/21/22 10:50 06/21/22 08:15 06/19/22 05:31 Oxygen Flow Rate (L/min) 2 Oxygen Delivery Method Room Air Weight: 182 lb 1.629 oz Body Mass Index (BMI) 30.3 Intake & Output: Intake and Output for Last 24 Hours 06/19/22 06/20/22 06/21/22 23:59 23:59 23:59 Intake Total 1200 / 1500 900 / 900 Output Total 400 / 700 1400 / 1750 1000 / 1000 Balance 800 / 800 -500 / -850 -1000 / -1000 Lab / Micro Data Result Diagrams: 06/20/22 06:05 06/20/22 06:05 Rhythm Strip Rhythm Strip: Junctional rhythm Rate: 72 Ectopy: None Physical Exam Narrative Seen and examined. Improvement in bilateral lower extremity edema. Legs look smooth. Physical exam General: Alert, Oriented x3, Cooperative HEENT: Atraumatic, PERRLA, EOMI, Normocephalic Oral: Oral mucosa moist. No Gingival or Mucosal Lesions/ Ulcerations Neck: Supple, No JVD, Negative Carotid Bruits Lungs: Air entry diminished in bilateral lung bases. No crepitation/rhonchi Cardiovascular: Irregular rate and rhythm, Normal S1, Normal S2, No murmurs Abdomen: Bowel Sounds Present, Soft, Non Tender, Non-Distended : No renal angle tenderness. No suprapubic tenderness. Extremities: Bilateral leg pitting edema, 2+ improving. Capillary Refill Less than 3 Seconds. Skin: Dry atrophic skin. Musculoskeletal/spine: Right TKR,3 times revision, ROM restricted with bilateral hip and left knee arthritis, predominantly right knee. Right knee is sensitive to touch. Neurological: Cranial nerves II-XII grossly intact, DTR 2+/4 and Symmetrical, muscle strength of bilateral knee and left knee 4/5, chronic weakness Psych/Mental Status: Flat affect. Assessment & Plan Assessment/Plan (1) Unable to ambulate: PLAN: Plan This 76-year-old female who was admitted after she fell down from the toilet seat. 1. Debility, acute on chronic, patient unable to ambulate, complains of pain in her back and her leg: Patient was admitted to [facility]. Lumbar spine x-ray was unremarkable Pelvic x-ray showed severe degenerative changes in the right hip with joint space narrowing PT/OT to evaluate and treat patient might need SNF. Continue with current pain regimen with scheduled Tylenol, as needed oxycodone. 06/19: Discussed with manager rn case for rehab. 06/20: Patient just gave her options of SNF to manager rn case. Pre-CERT pending. 06/21: Discussed with the manager rn case. Patient changed her mind and she wants to go to different [facility]. Pre-CERT pending. 2. Acute hypoxia likely secondary to acute on chronic HFpEF on 2 L of oxygen Patient with underlying history of CHF, COPD, KWABENA, chronic heart failure; She follows Dr. Rick as her floor technician. Last echo in July 2021 reported EF 55 to 60% mild AI no significant change from previous echo. Admitting chest x-ray shows fluid overload ; patient is on 40 mg p.o. Lasix daily increased to 40 mg twice daily. Continue incentive spirometer 06/19:Patient did not had good urine output with oral Lasix therefore Lasix changed to 40 mg IV twice daily. Spironolactone 25 mg added. Monitor electrolytes. Heart failure core measures including intake and output, fluid restriction less than 1500 mL, daily weight monitoring, kidney and electrolytes monitoring 06/20: Patient had good urine output with IV Lasix. Continue weight. Leg swelling is much improved. 06/21: Overall following the course it seems patient was admitted with acute on chronic shortness of breath with elevated BNP, increased leg swelling and chest x-ray showing pulmonary venous congestion therefore acute on chronic HFpEF. Acute part is resolved therefore Lasix changed to oral and will discharge on torsemide 20 mg twice daily as pharmacy does not have formulary torsemide.. 3. Paroxysmal atrial fibrillation/CAD/hypertension/hyperlipidemia Recently cardioverted in the ED on 05/31/2022. Patient had ablation by Dr. Alcantara in [facility] few weeks ago but is still in A. fib. Continue on sotalol, Cardizem, Eliquis, statin 06/20: Heart rate is controlled. 4. 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 She had delayed healing of the wound with whole therefore was started on chemotherapy late in November and she completed in late February. 5. DVT prophylaxis?on Eliquis Charges/Coding Visit Charges Inpatient E&M: 82911 Subs Hosp L2
[2022-06-21] MEDS: Metoclopramide 10 MG/2 ML Vial 5 MG IV (15:39)
[2022-06-21] MEDS: Pravastatin 20 MG Tablet PO (21:28)
[2022-06-22 03:20] VITALS: BP 129/53; PULSE 52; RESP 16; TEMP 36.6; O2SAT 95
[2022-06-22] MEDS: oxyCODONE 5 MG Tablet PO ×3 (03:22→22:14)
[2022-06-22] MEDS: Menthol/Lanolin/Calamine/Znox 113 GM Tube 1 APPLIC TOPICAL ×3 (06:27→22:19)
[2022-06-22] MEDS: Acetaminophen 500 MG Tablet 1000 MG PO ×3 (06:27→22:19)
[2022-06-22] MEDS: Senna/Docusate Sodium 1 Tablet 2 TABLET PO (08:53)
[2022-06-22] MEDS: Pantoprazole Sodium 20 MG Tablet PO (08:54)
[2022-06-22] MEDS: Calcium Carb/Vitamin D 1 TABLET Tablet PO (08:54)
[2022-06-22] MEDS: Furosemide 40 MG Tablet PO ×2 (08:54→17:36)
[2022-06-22] MEDS: Nystatin Powder 15gm Bottle 1 APPLIC TOPICAL ×2 (08:54→22:16)
[2022-06-22] MEDS: APIXABAN 5 MG TABLET PO ×2 (08:55→22:19)
[2022-06-22] MEDS: dilTIAZem CD 120 MG Capsule PO ×2 (08:55→22:19)
[2022-06-22] MEDS: Spironolactone 25 MG Tablet PO (08:56)
[2022-06-22] MEDS: Anastrozole 1 MG TABLET PO (09:02)
[2022-06-22] MEDS: Sotalol Hydrochloride 80 MG Tablet PO ×2 (09:02→22:18)
[2022-06-22 09:15] VITALS: BP 125/63; PULSE 66; RESP 17; TEMP 36.8; O2SAT 93
--- NOTE | 2022-06-22 10:49 | CASEMGMT ---
Social Work Telephone call from [facility], [facility]. Admissions request for updated clinical information per Novi request. This high school social studies teacher sent the last 24hr of clinical information that include PT/OT and nursing notes via [employer]. Will continue to follow. Diane NELSON, SHAWNS
--- NOTE | 2022-06-22 16:42 | CASEMGMT ---
Social Work Telephone call from Chyna Ma. Pre-cert obtained and able to accept patient. This social services director notified Dr. Elizabeth, patient will be medically cleared tomorrow. This social services director updated Vern Sanchez that patient will not be medically cleared until tomorrow. This social services director spoke with patient in room and updated patient on above information. Patient agreeable to discharge plan. This social services director inquired as to which support person this social services director can contact for patient to update on plan. Patient declined for this social services director to call family/support system and states I will call them. Transfer sheet initiated. Green sheet and transportation forms placed on patient chart. PLAN: Rodrigo Ma. Proposed discharge date: 06/23/2022 Diane NELSON, ANNA
--- NOTE | 2022-06-22 17:12 | PCM.PN.HOSP ---
Subjective Subjective Follow-up for debility, heart failure. Objective Data Objective Data Vital Signs: Vital Signs Temp Pulse Resp BP Pulse Ox O2 Del Method O2 Flow Rate 98.3 F 66 17 125/63 H 93 Room Air 2 06/22/22 09:15 06/22/22 09:15 06/22/22 09:15 06/22/22 09:15 06/22/22 09:15 06/22/22 09:15 06/19/22 05:31 Oxygen Flow Rate (L/min) 2 Oxygen Delivery Method Room Air Weight: 182 lb 1.629 oz Body Mass Index (BMI) 30.3 Intake & Output: Intake and Output for Last 24 Hours 06/20/22 06/21/22 06/22/22 23:59 23:59 23:59 Intake Total 900 / 900 250 / 250 10 10 Output Total 1400 / 1750 1400 / 1850 550 / 550 Balance -500 / -850 -1150 / -1600 -540 / -540 Lab / Micro Data Result Diagrams: 06/20/22 06:05 06/20/22 06:05 Rhythm Strip Rhythm Strip: Junctional rhythm Rate: 72 Ectopy: None Physical Exam Narrative Seen and examined. Improvement in bilateral lower extremity edema. Legs look smooth. Patient had 4 bowel movements. Physical exam General: Alert, Oriented x3, Cooperative HEENT: Atraumatic, PERRLA, EOMI, Normocephalic Oral: Oral mucosa moist. No Gingival or Mucosal Lesions/ Ulcerations Neck: Supple, No JVD, Negative Carotid Bruits Lungs: Air entry diminished in bilateral lung bases. No crepitation/rhonchi Cardiovascular: Irregular rate and rhythm, Normal S1, Normal S2, No murmurs Abdomen: Bowel Sounds Present, Soft, Non Tender, Non-Distended : No renal angle tenderness. No suprapubic tenderness. Extremities: Bilateral leg pitting edema, 2+ improving. Capillary Refill Less than 3 Seconds. Skin: Dry atrophic skin. Musculoskeletal/spine: Right TKR,3 times revision, ROM restricted with bilateral hip and left knee arthritis, predominantly right knee. Right knee is sensitive to touch. Neurological: Cranial nerves II-XII grossly intact, DTR 2+/4 and Symmetrical, muscle strength of bilateral knee and left knee 4/5, chronic weakness Psych/Mental Status: Flat affect. Assessment & Plan Assessment/Plan (1) Unable to ambulate: PLAN: Plan This 76-year-old female who was admitted after she fell down from the toilet seat. 1. Debility, acute on chronic, patient unable to ambulate, complains of pain in her back and her leg: Patient was admitted to [facility]. Lumbar spine x-ray was unremarkable Pelvic x-ray showed severe degenerative changes in the right hip with joint space narrowing PT/OT to evaluate and treat patient might need SNF. Continue with current pain regimen with scheduled Tylenol, as needed oxycodone. 06/19: Discussed with wrapper caser for rehab. 06/20: Patient just gave her options of SNF to wrapper caser. Pre-CERT pending. 06/21: Discussed with the wrapper caser. Patient changed her mind and she [facility]. Pre-CERT pending. 06/22: Pre-CERT is still pending. Mild diarrhea. Even though patient on MiraLAX as needed, discontinue MiraLAX. 2. Acute hypoxia likely secondary to acute on chronic HFpEF on 2 L of oxygen Patient with underlying history of CHF, COPD, KWABENA, chronic heart failure; She follows Dr. Rick as her felt pad cutter. Last echo in July 2021 reported EF 55 to 60% mild AI no significant change from previous echo. Admitting chest x-ray shows fluid overload ; patient is on 40 mg p.o. Lasix daily increased to 40 mg twice daily. Continue incentive spirometer 06/19:Patient did not had good urine output with oral Lasix therefore Lasix changed to 40 mg IV twice daily. Spironolactone 25 mg added. Monitor electrolytes. Heart failure core measures including intake and output, fluid restriction less than 1500 mL, daily weight monitoring, kidney and electrolytes monitoring 06/20: Patient had good urine output with IV Lasix. Continue weight. Leg swelling is much improved. 06/21: Overall following the course it seems patient was admitted with acute on chronic shortness of breath with elevated BNP, increased leg swelling and chest x-ray showing pulmonary venous congestion therefore acute on chronic HFpEF. Acute part is resolved therefore Lasix changed to oral and will discharge on torsemide 20 mg twice daily as pharmacy does not have formulary torsemide.. 3. Paroxysmal atrial fibrillation/CAD/hypertension/hyperlipidemia Recently cardioverted in the ED on 05/31/2022. Patient had ablation by Dr. Alcantara in [facility] few weeks ago but is still in A. fib. Continue on sotalol, Cardizem, Eliquis, statin 06/20: Heart rate is controlled. 4. Breast CA, continue anastrozole: Patient had severe right cancer diagnosed in 2017 and had mastectomy. She had delayed healing of the wound with whole therefore was started on chemotherapy late in November and she completed in late February. 5. DVT prophylaxis?on Eliquis Charges/Coding Visit Charges Inpatient E&M: 07928 Subs Hosp L2
[2022-06-22 17:43] VITALS: BP 133/56; PULSE 61; RESP 18; TEMP 36.9; O2SAT 96
--- NOTE | 2022-06-22 18:54 | CASEMGMT ---
Social Work MS3 PASRR completed for possible weekend discharge to SNF. Copies made, being placed on chart. Plan: [facility] SNF, skilled level of care. GREEN SHEET on chart to follow for weekend discharge. -CHRISTINA White, DRY CLEANING MANAGER
[2022-06-22] MEDS: Pravastatin 20 MG Tablet PO (22:19)
[2022-06-22 23:53] VITALS: BP 119/58; PULSE 56; RESP 18; TEMP 36.6; O2SAT 95
[2022-06-23] MEDS: Zolpidem Tartrate 5 MG Tablet PO (00:38)
[2022-06-23 05:50] VITALS: BP 143/56; PULSE 59; RESP 16; TEMP 36.4; O2SAT 93
[2022-06-23] MEDS: Acetaminophen 500 MG Tablet 1000 MG PO ×3 (06:00→20:59)
[2022-06-23] MEDS: Menthol/Lanolin/Calamine/Znox 113 GM Tube 1 APPLIC TOPICAL ×3 (06:00→20:54)
[2022-06-23] MEDS: Calcium Carb/Vitamin D 1 TABLET Tablet PO (08:23)
[2022-06-23] MEDS: oxyCODONE 5 MG Tablet PO ×2 (08:26→22:03)
[2022-06-23 10:39] VITALS: BP 124/46; PULSE 63; RESP 16; TEMP 36.7; O2SAT 97
[2022-06-23] MEDS: Pantoprazole Sodium 20 MG Tablet PO (10:51)
[2022-06-23] MEDS: Sotalol Hydrochloride 80 MG Tablet PO ×2 (10:51→20:56)
[2022-06-23] MEDS: Spironolactone 25 MG Tablet PO (10:53)
[2022-06-23] MEDS: dilTIAZem CD 120 MG Capsule PO ×2 (10:53→20:57)
[2022-06-23] MEDS: Anastrozole 1 MG TABLET PO (10:54)
[2022-06-23] MEDS: APIXABAN 5 MG TABLET PO ×2 (10:54→20:57)
[2022-06-23] MEDS: Furosemide 40 MG Tablet PO ×2 (10:54→18:13)
[2022-06-23] MEDS: Nystatin Powder 15gm Bottle 1 APPLIC TOPICAL ×2 (10:55→20:54)
--- NOTE | 2022-06-23 14:44 | PN.HOSP_ITS ---
Subjective Subjective Pre-CERT pending. Better. Objective Data Objective Data Vital Signs: Vital Signs Temp Pulse Resp BP Pulse Ox O2 Del Method O2 Flow Rate 98.0 F 63 16 124/46 H 97 Room Air 2 06/23/22 10:39 06/23/22 10:39 06/23/22 10:39 06/23/22 10:39 06/23/22 10:39 06/23/22 14:31 06/19/22 05:31 Oxygen Flow Rate (L/min) 2 Oxygen Delivery Method Room Air Weight: 182 lb 1.629 oz Body Mass Index (BMI) 30.3 Intake & Output: Intake and Output for Last 24 Hours 06/21/22 06/22/22 06/23/22 23:59 23:59 23:59 Intake Total 250 / 250 20 / 20 500 / 500 Output Total 1400 / 1850 1300 / 1500 300 / 300 Balance -1150 / -1600 -1280 / -1480 200 / 200 Lab / Micro Data Result Diagrams: 06/20/22 06:05 06/20/22 06:05 Rhythm Strip Rhythm Strip: Junctional rhythm Rate: 72 Ectopy: None Physical Exam Narrative Seen and examined. bilateral lower extremity edema on oral diuretic. Legs look smooth. Physical exam General: Alert, Oriented x3, Cooperative HEENT: Atraumatic, PERRLA, EOMI, Normocephalic Oral: Oral mucosa moist. No Gingival or Mucosal Lesions/ Ulcerations Neck: Supple, No JVD, Negative Carotid Bruits Lungs: Air entry diminished in bilateral lung bases. No crepitation/rhonchi Cardiovascular: Irregular rate and rhythm, Normal S1, Normal S2, No murmurs Abdomen: Bowel Sounds Present, Soft, Non Tender, Non-Distended : No renal angle tenderness. No suprapubic tenderness. Extremities: Bilateral leg pitting edema, 2+ improving. Capillary Refill Less than 3 Seconds. Skin: Dry atrophic skin. Musculoskeletal/spine: Right TKR,3 times revision, ROM restricted with bilateral hip and left knee arthritis, predominantly right knee. Right knee is sensitive to touch, hyperalgesia Neurological: Cranial nerves II-XII grossly intact, DTR 2+/4 and Symmetrical, muscle strength of bilateral knee and left knee 4/5, chronic weakness Psych/Mental Status: Flat affect. Assessment & Plan Assessment/Plan (1) Unable to ambulate: PLAN: Plan This 76-year-old female who was admitted after she fell down from the toilet seat. 1. Debility, acute on chronic, patient unable to ambulate, complains of pain in her back and her leg: Patient was admitted to [facility]. Lumbar spine x-ray was unremarkable Pelvic x-ray showed severe degenerative changes in the right hip with joint space narrowing PT/OT to evaluate and treat patient might need SNF. Continue with current pain regimen with scheduled Tylenol, as needed oxycodone. 06/19: Discussed with case fitter for rehab. 06/20: Patient just gave her options of SNF to case fitter. Pre-CERT pending. 06/21: Discussed with the case fitter. Patient changed her mind and she wants to go to different senior living. Pre-CERT pending. 06/22: Pre-CERT is still pending. Mild diarrhea. Even though patient on MiraLAX as needed, discontinue MiraLAX. 06/23: Pre-CERT is pending. 2. 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 Last echo in July 2021 reported EF 55 to 60% mild AI no significant change from previous echo. Admitting chest x-ray shows fluid overload ; patient is on 40 mg p.o. Lasix daily increased to 40 mg twice daily. Continue incentive spirometer 06/19:Patient did not had good urine output with oral Lasix therefore Lasix changed to 40 mg IV twice daily. Spironolactone 25 mg added. Monitor electrolytes. Heart failure core measures including intake and output, fluid restriction less than 1500 mL, daily weight monitoring, kidney and electrolytes monitoring 06/20: Patient had good urine output with IV Lasix. Continue weight. Leg swelling is much improved. 06/21: Overall following the course it seems patient was admitted with acute on chronic shortness of breath with elevated BNP, increased leg swelling and chest x-ray showing pulmonary venous congestion therefore acute on chronic HFpEF. Acute part is resolved therefore Lasix changed to oral and will discharge on torsemide 20 mg twice daily as pharmacy does not have formulary torsemide.. 3. Paroxysmal atrial fibrillation/CAD/hypertension/hyperlipidemia Recently cardioverted in the ED on 05/31/2022. Patient had ablation by Dr. Alcantara in [facility] few weeks ago but is still in A. fib. Continue on sotalol, Cardizem, Eliquis, statin 06/20: Heart rate is controlled. 06/23: Heart rate and blood pressure are controlled. No fever 4. Breast CA, continue anastrozole: Patient had severe right cancer diagnosed i 2017 and had mastectomy. She had delayed healing of the wound with whole therefore was started on chemotherapy late in November and she completed in late February. 5. DVT prophylaxis?on Eliquis
[2022-06-23 15:46] VITALS: BP 97/73; PULSE 55; RESP 16; TEMP 37.1; O2SAT 96
[2022-06-23 18:11] VITALS: BP 140/47
[2022-06-23] MEDS: Pravastatin 20 MG Tablet PO (20:57)
[2022-06-23 21:45] VITALS: BP 123/44; PULSE 64; RESP 18; TEMP 36.7; O2SAT 93
[2022-06-24 03:45] VITALS: BP 132/51; PULSE 57; RESP 18; TEMP 36.8; O2SAT 90
[2022-06-24] MEDS: oxyCODONE 5 MG Tablet PO ×3 (03:52→21:43)
[2022-06-24] MEDS: Acetaminophen 500 MG Tablet 1000 MG PO ×3 (06:06→21:44)
[2022-06-24] MEDS: Menthol/Lanolin/Calamine/Znox 113 GM Tube 1 APPLIC TOPICAL ×3 (06:06→21:46)
[2022-06-24 06:59] LABS: Absolute Lymphocyte Count 1.47 X10^3/uL (0.83-4.51); Absolute Neutrophil Count 3.9 X10^3/uL (2.0-7.7); Basophil# 0.02 X10^3/uL; Basophil% 0.3 % (0-1); Eosinophils% 3.1 % (0-5); Hematocrit 33.4 % (37-47); Hemoglobin 10.7 g/dL (12.0-15.0); Lymphocyte # 1.47 X10^3/ul (0.83-4.51); Lymphocyte % 22.6 % (19-41); Mean Corpuscular Hgb 29.6 pg (27.0-32.0); Mean Corpuscular Volume 92.3 fL (81-99); Mean Platelet Vol. 9.6 fl (6.2-12.0); Monocyte# 0.84 X10^3/uL; Monocyte% 12.9 % (0-10); NRBC Flagged by Analyzer 0 % (0-5); Neutrophil # 3.93 X10^3/uL (2.7-7.7); Neutrophil % 60.3 % (47-70); Platelet Count 248 K/mm3 (150-450); RBC Distribution Width CV 13.1 % (11.6-14.6); RBC Distribution Width SD 43.9 fl (35.1-43.9); Red Blood Count 3.62 M/mm3 (4.2-5.4); White Blood Count 6.5 K/mm3 (4.4-11.0)
[2022-06-24 07:23] LABS: Anion Gap 6 (5-15); BUN 22 mg/dL (7-18); BUN/Creat Ratio 19.6 RATIO (10-20); Calcium,Total 9.4 mg/dL (8.5-10.1); Chloride 101 mmol/L (98-107); Creatinine, Serum 1.12 mg/dL (0.55-1.02); EST Glomerular Filtration Rate 50 mL/min (>60); Est Glom Filt Rate - Afr Amer 60 mL/min (>60); Estimated Creatinine Clearance 37.25 ml/min; Glucose 156 mg/dL (74-106); Potassium 3.4 mmol/L (3.5-5.1); Sodium Level 140 mmol/L (136-145)
--- NOTE | 2022-06-24 07:30 | PN.HOSP_ITS ---
Subjective Subjective Feeling well. Was able to ambulate to the nurses station with her walker but did get tired and had to go back. Objective Data Objective Data Vital Signs: Vital Signs Temp Pulse Resp BP Pulse Ox O2 Del Method O2 Flow Rate 36.8 C 57 L 18 132/51 H 90 Room Air 2 06/24/22 03:45 06/24/22 03:45 06/24/22 03:45 06/24/22 03:45 06/24/22 03:45 06/24/22 03:45 06/19/22 05:31 Oxygen Flow Rate (L/min) 2 Oxygen Delivery Method Room Air Weight: 82.6 kg Body Mass Index (BMI) 30.3 Intake & Output: Intake and Output for Last 24 Hours 06/22/22 06/23/22 06/24/22 23:59 23:59 23:59 Intake Total 20 / 20 500 / 700 340 / 340 Output Total 1300 / 1500 650 / 1150 600 / 600 Balance -1280 / -1480 -150 / -450 -260 / -260 Lab / Micro Data Result Diagrams: 06/24/22 05:15 06/24/22 05:25 Labs: Laboratory Results - last 24 hr 06/24/22 05:15: WBC 6.5, RBC 3.62 L, Hgb 10.7 L, Hct 33.4 L, MCV 92.3, MCH 29.6, MCHC 32.0, RDW Std Deviation 43.9, RDW Coeff of Jenna 13.1, Plt Count 248, MPV 9.6, Immature Gran % (Auto) 0.800, Neut % (Auto) 60.3, Lymph % (Auto) 22.6, [place] % (Auto) 12.9 H, Eos % (Auto) 3.1, Baso % (Auto) 0.3, Absolute Neuts (auto) 3.9, Absolute Lymphs (auto) 1.47, Nucleated RBC % 0 06/24/22 05:25: Sodium 140, Potassium 3.4 L, Chloride 101, Carbon Dioxide 33.0 H , Anion Gap 6, BUN 22 H, Creatinine 1.12 H, Estim Creat Clear Calc 37.25, Est GFR (MDRD) Af Amer 60, Est GFR (MDRD) Non-Af 50 L, BUN/Creatinine Ratio 19.6, Glucose 156 H, Calcium 9.4 Rhythm Strip Rhythm Strip: Junctional rhythm Rate: 72 Ectopy: None Physical Exam Neck no lymphadenopathy Resp normal respiratory effort, no retractions, no use of accessory muscles and clear to auscultation bilaterally Cardio regular rate, regular rhythm, S1 normal heart sound and S2 normal heart sound GI normal to inspection, nondistended, normoactive bowel sounds, soft to palpation, non-tender and non-distended Assessment & Plan Assessment/Plan (1) Debility: PLAN: Debility, acute on chronic, patient unable to ambulate, complains of pain in her back and her leg: Patient was admitted to [facility]. Lumbar spine x- ray was unremarkable Pelvic x-ray showed severe degenerative changes in the right hip with joint space narrowing PT/OT to evaluate and treat patient might need SNF. Continue with current pain regimen with scheduled Tylenol, as needed oxycodone. 06/19: Discussed with family service caseworker for rehab. 06/20: Patient just gave her options of SNF to family service caseworker. Pre-CERT pending. 06/21: Discussed with the family service caseworker. Patient changed her mind and she wants to go to different chcf. Pre-CERT pending. 06/22: Pre-CERT is still pending. Mild diarrhea. Even though patient on MiraLAX as needed, discontinue MiraLAX. 06/23: Pre-CERT is pending. 06/24: precert pending. Avoidable day #4. (2) (HFpEF) heart failure with preserved ejection fraction: QUALIFIERS: Heart failure chronicity: acute on chronic Qualified Code(s): I50.33 - Acute on chronic diastolic (congestive) heart failure PLAN: Acute hypoxia likely secondary to acute on chronic HFpEF on 2 L of oxygen Patient with underlying history of CHF, COPD, KWABENA, chronic heart failure; She follows Dr. Rick as her low raw sugar cutter. Last echo in July 2021 reported EF 55 to 60% mild AI no significant change from previous echo. Admitting chest x-ray shows fluid overload ; patient is on 40 mg p.o. Lasix daily increased to 40 mg twice daily. Continue incentive spirometer 06/19:Patient did not had good urine output with oral Lasix therefore Lasix changed to 40 mg IV twice daily. Spironolactone 25 mg added. Monitor electrolytes. Heart failure core measures including intake and output, fluid r estriction less than 1500 mL, daily weight monitoring, kidney and electrolytes monitoring 06/20: Patient had good urine output with IV Lasix. Continue weight. Leg swelling is much improved. 06/21: Overall following the course it seems patient was admitted with acute on chronic shortness of breath with elevated BNP, increased leg swelling and chest x-ray showing pulmonary venous congestion therefore acute on chronic HFpEF. Acute part is resolved therefore Lasix changed to oral and will discharge on torsemide 20 mg twice daily as pharmacy does not have formulary torsemide. PLAN: Plan Chronic conditions: * Paroxysmal atrial fibrillation/CAD/hypertension/hyperlipidemia. Recently cardioverted in the ED on 05/31/2022. Patient had ablation by Dr. Alcantara in [facility] few weeks ago but is still in A. fib. Continue on sotalol, Cardizem, Eliquis, statin 06/20: Heart rate is controlled. 06/23: Heart rate and blood pressure are controlled. 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 She had delayed healing of the wound with whole therefore was started on chemotherapy late in November and she completed in late February. DVT prophylaxis?on Eliquis Charges/Coding Visit Charges Inpatient E&M: 09141 Subs Hosp L2
[2022-06-24 09:47] VITALS: BP 113/52; PULSE 60; RESP 16; TEMP 36.8; O2SAT 94
[2022-06-24] MEDS: Spironolactone 25 MG Tablet PO (09:52)
[2022-06-24] MEDS: Sotalol Hydrochloride 80 MG Tablet PO ×2 (09:53→21:46)
[2022-06-24] MEDS: Calcium Carb/Vitamin D 1 TABLET Tablet PO (09:53)
[2022-06-24] MEDS: Senna/Docusate Sodium 1 Tablet 2 TABLET PO ×2 (09:53→21:45)
[2022-06-24] MEDS: Furosemide 40 MG Tablet PO ×2 (09:54→17:17)
[2022-06-24] MEDS: APIXABAN 5 MG TABLET PO ×2 (09:54→21:43)
[2022-06-24] MEDS: dilTIAZem CD 120 MG Capsule PO ×2 (09:54→21:46)
[2022-06-24] MEDS: Anastrozole 1 MG TABLET PO (09:55)
[2022-06-24] MEDS: Nystatin Powder 15gm Bottle 1 APPLIC TOPICAL ×2 (09:55→21:43)
[2022-06-24] MEDS: Pantoprazole Sodium 20 MG Tablet PO (09:55)
[2022-06-24 13:43] VITALS: BP 97/41; PULSE 56; RESP 16; TEMP 36.7; O2SAT 93
[2022-06-24 20:00] VITALS: BP 133/47; PULSE 56; RESP 18; TEMP 36.6; O2SAT 96
[2022-06-24] MEDS: Pravastatin 20 MG Tablet PO (21:46)
[2022-06-25 02:30] VITALS: BP 135/64; PULSE 58; RESP 18; TEMP 36.8; O2SAT 93
[2022-06-25 05:49] LABS: Absolute Lymphocyte Count 1.33 X10^3/uL (0.83-4.51); Absolute Neutrophil Count 3.7 X10^3/uL (2.0-7.7); Basophil# 0.02 X10^3/uL; Basophil% 0.3 % (0-1); Eosinophil# 0.18 X10^3/uL; Hematocrit 32.9 % (37-47); Hemoglobin 10.8 g/dL (12.0-15.0); Lymphocyte # 1.33 X10^3/ul (0.83-4.51); Lymphocyte % 22.1 % (19-41); Mean Corp Hgb Conc 32.8 g/dL (32-36); Mean Corpuscular Hgb 30.3 pg (27.0-32.0); Mean Corpuscular Volume 92.4 fL (81-99); Mean Platelet Vol. 9.2 fl (6.2-12.0); Monocyte# 0.74 X10^3/uL; Monocyte% 12.3 % (0-10); NRBC Flagged by Analyzer 0 % (0-5); Neutrophil # 3.69 X10^3/uL (2.7-7.7); Neutrophil % 61.5 % (47-70); Platelet Count 231 K/mm3 (150-450); RBC Distribution Width SD 43.8 fl (35.1-43.9); Red Blood Count 3.56 M/mm3 (4.2-5.4)
[2022-06-25] MEDS: Acetaminophen 500 MG Tablet 1000 MG PO (06:28)
[2022-06-25] MEDS: Menthol/Lanolin/Calamine/Znox 113 GM Tube 1 APPLIC TOPICAL (06:29)
[2022-06-25 06:31] LABS: Anion Gap 5 (5-15); BUN 27 mg/dL (7-18); BUN/Creat Ratio 23.1 RATIO (10-20); Calcium,Total 9.6 mg/dL (8.5-10.1); Chloride 101 mmol/L (98-107); Creatinine, Serum 1.17 mg/dL (0.55-1.02); EST Glomerular Filtration Rate 48 mL/min (>60); Est Glom Filt Rate - Afr Amer 58 mL/min (>60); Estimated Creatinine Clearance 35.66 ml/min; Glucose 172 mg/dL (74-106); Potassium 3.8 mmol/L (3.5-5.1); Sodium Level 139 mmol/L (136-145)
[2022-06-25 08:48] VITALS: BP 127/57; PULSE 59; RESP 18; TEMP 36.3; O2SAT 98
--- NOTE | 2022-06-25 09:18 | PN.HOSP_ITS ---
Subjective Subjective No BM in 2 days. Objective Data Objective Data Vital Signs: Vital Signs Temp Pulse Resp BP Pulse Ox O2 Del Method O2 Flow Rate 36.3 C L 59 L 18 127/57 H 98 Room Air 2 06/25/22 08:48 06/25/22 08:48 06/25/22 08:48 06/25/22 08:48 06/25/22 08:48 06/25/22 08:48 06/19/22 05:31 Oxygen Flow Rate (L/min) 2 Oxygen Delivery Method Room Air Weight: 82.6 kg Body Mass Index (BMI) 30.3 Intake & Output: Intake and Output for Last 24 Hours 06/23/22 06/24/22 06/25/22 23:59 23:59 23:59 Intake Total 500 / 700 880 / 1260 380 / 380 Output Total 650 / 1150 600 / 750 450 / 450 Balance -150 / -450 280 / 510 -70 / -70 Lab / Micro Data Result Diagrams: 06/25/22 05:15 06/25/22 05:15 Labs: Laboratory Results - last 24 hr 06/25/22 05:15: WBC 6.0, RBC 3.56 L, Hgb 10.8 L, Hct 32.9 L, MCV 92.4, MCH 30.3, MCHC 32.8, RDW Std Deviation 43.8, RDW Coeff of Jenna 13.0, Plt Count 231, MPV 9.2, Immature Gran % (Auto) 0.800, Neut % (Auto) 61.5, Lymph % (Auto) 22.1, [place] % (Auto) 12.3 H, Eos % (Auto) 3.0, Baso % (Auto) 0.3, Absolute Neuts (auto) 3.7, Absolute Lymphs (auto) 1.33, Nucleated RBC % 0 06/25/22 05:15: Sodium 139, Potassium 3.8, Chloride 101, Carbon Dioxide 33.0 H, Anion Gap 5, BUN 27 H, Creatinine 1.17 H, Estim Creat Clear Calc 35.66, Est GFR (MDRD) Af Amer 58 L, Est GFR (MDRD) Non-Af 48 L, BUN/Creatinine Ratio 23.1 H, Glucose 172 H, Calcium 9.6 Rhythm Strip Rhythm Strip: Junctional rhythm Rate: 72 Ectopy: None Physical Exam Const alert and no apparent distress Resp normal respiratory effort, no retractions, no use of accessory muscles and clear to auscultation bilaterally Cardio regular rate, regular rhythm, S1 normal heart sound and S2 normal heart sound GI normal to inspection, nondistended, normoactive bowel sounds Assessment & Plan Assessment/Plan (1) Debility: PLAN: Debility, acute on chronic, patient unable to ambulate, complains of pain in her back and her leg: Patient was admitted to [facility] floor. Lumbar spine x- ray was unremarkable Pelvic x-ray showed severe degenerative changes in the right hip with joint space narrowing PT/OT to evaluate and treat patient might need SNF. Continue with current pain regimen with scheduled Tylenol, as needed oxycodone. 06/19: Discussed with therapeutic case manager for rehab. 06/20: Patient just gave her options of SNF to therapeutic case manager. Pre-CERT pending. 06/21: Discussed with the therapeutic case manager. Patient changed her mind and she wants to go to different senior living. Pre-CERT pending. 06/22: Pre-CERT is still pending. Mild diarrhea. Even though patient on MiraLAX as needed, discontinue MiraLAX. 06/23: Pre-CERT is pending. 06/24: precert pending. 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 Last echo in July 2021 reported EF 55 to 60% mild AI no significant change from previous echo. Admitting chest x-ray shows fluid overload ; patient is on 40 mg p.o. Lasix daily increased to 40 mg twice daily. Continue incentive spirometer 06/19:Patient did not had good urine output with oral Lasix therefore Lasix changed to 40 mg IV twice daily. Spironolactone 25 mg added. Monitor electro lytes. Heart failure core measures including intake and output, fluid restriction less than 1500 mL, daily weight monitoring, kidney and electrolytes monitoring 06/20: Patient had good urine output with IV Lasix. Continue weight. Leg swelling is much improved. 06/21: Overall following the course it seems patient was admitted with acute on chronic shortness of breath with elevated BNP, increased leg swelling and chest x-ray showing pulmonary venous congestion therefore acute on chronic HFpEF. Acute part is resolved therefore Lasix changed to oral and will discharge on torsemide 20 mg twice daily as pharmacy does not have formulary torsemide. PLAN: Plan Chronic conditions: * Paroxysmal atrial fibrillation/CAD/hypertension/hyperlipidemia. Recently cardioverted in the ED on 05/31/2022. Patient had ablation by Dr. Alcantara in [facility] few weeks ago but is still in A. fib. Continue on sotalol, Cardizem, Eliquis, statin 06/20: Heart rate is controlled. 06/23: Heart rate and blood pressure are controlled. 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 She had delayed healing of the wound with whole therefore was started on chemotherapy late in November and she completed in late February. DVT prophylaxis?on Maureen SMITH to [facility].
[2022-06-25] MEDS: APIXABAN 5 MG TABLET PO (09:42)
[2022-06-25] MEDS: oxyCODONE 5 MG Tablet PO (09:42)
[2022-06-25] MEDS: Senna/Docusate Sodium 1 Tablet 2 TABLET PO (09:42)
[2022-06-25] MEDS: Spironolactone 25 MG Tablet PO (09:42)
[2022-06-25] MEDS: Furosemide 40 MG Tablet PO (09:42)
[2022-06-25] MEDS: Calcium Carb/Vitamin D 1 TABLET Tablet PO (09:43)
[2022-06-25] MEDS: Pantoprazole Sodium 20 MG Tablet PO (09:43)
[2022-06-25] MEDS: dilTIAZem CD 120 MG Capsule PO (09:43)
[2022-06-25] MEDS: Anastrozole 1 MG TABLET PO (09:46)
[2022-06-25] MEDS: Sotalol Hydrochloride 80 MG Tablet PO (09:46)
--- NOTE | 2022-06-25 10:55 | CASEMGMT ---
Social Work SW in to notify pt that insurance auth has been obtained. Pt voiced understanding. SW explained discharge process and how transportation would work, as pt appeared anxious about. Pt seemed calmer after this discussion. SW checked with pt to inquire if there was friend or family members that SW could call to update on discharge plan. Pt declined. Stated son was up to visit over weekend and aware of the plan. Pt will call son later this day after arriving at [facility]. PLAN: [facility] SABI Bland
--- NOTE | 2022-06-25 11:32 | TREXTCAR_ITS ---
Diet Diet Order/Speech Therapy: 06/17/22 02:37 Diet: Cardiac - Heart Healthy Is pt able to select menu?: Yes Wound(s) cleft: Wound Type: Pressure Injury Therapies Weight Bearing: Full weight bearing Physical Therapy: Eval and Treat Occupational Therapy: Eval and Treat Problem/Diagnosis (1) Debility: Status: Acute Code(s): R53.81 - Other malaise Plan: Debility, acute on chronic, patient unable to ambulate, complains of pain in her back and her leg: Patient was admitted to [facility]. Lumbar spine x-ray was unremarkable Pelvic x-ray showed severe degenerative changes in the right hip with joint space narrowing PT/OT to evaluate and treat patient might need SNF. Continue with current pain regimen with scheduled Tylenol, as needed oxycodone. 06/19: Discussed with immigration case worker for rehab. 06/20: Patient just gave her options of SNF to immigration case worker. Pre-CERT pending. 06/21: Discussed with the immigration case worker. Patient changed her mind and she wants to go to different senior living. Pre-CERT pending. 06/22: Pre-CERT is still pending. Mild diarrhea. Even though patient on MiraLAX as needed, discontinue MiraLAX. 06/23: Pre-CERT is pending. 06/24: precert pending. 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 Last echo in July 2021 reported EF 55 to 60% mild AI no significant change from previous echo. Admitting chest x-ray shows fluid overload ; patient is on 40 mg p.o. Lasix daily increased to 40 mg twice daily. Continue incentive spirometer 06/19:Patient did not had good urine output with oral Lasix therefore Lasix changed to 40 mg IV twice daily. Spironolactone 25 mg added. Monitor electrolytes. Heart failure core measures including intake and output, fluid restriction less than 1500 mL, daily weight monitoring, kidney and electrolytes monitoring 06/20: Patient had good urine output with IV Lasix. Continue weight. Leg swelling is much improved. 06/21: Overall following the course it seems patient was admitted with acute on chronic shortness of breath with elevated BNP, increased leg swelling and chest x-ray showing pulmonary venous congestion therefore acute on chronic HFpEF. Ac elliott part is resolved therefore Lasix changed to oral and will discharge on torsemide 20 mg twice daily as pharmacy does not have formulary torsemide. Plan Chronic conditions: * Paroxysmal atrial fibrillation/CAD/hypertension/hyperlipidemia. Recently cardioverted in the ED on 05/31/2022. Patient had ablation by Dr. Alcantara in [facility] few weeks ago but is still in A. fib. Continue on sotalol, Cardizem, Eliquis, statin 06/20: Heart rate is controlled. 06/23: Heart rate and blood pressure are controlled. 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 She had delayed healing of the wound with whole therefore was started on chemotherapy late in November and she completed in late February. DVT prophylaxis?on Eliquis DC to [facility]. Allergies/Procedures Done in Hospital Allergies niacin Allergy (Intermediate, Verified 06/17/22 01:26) I DON'T REMEMBER, I CAN'T TAKE IT I CAN'T TAKE IT bee venom protein (honey bee) Allergy (Verified 06/17/22 01:26) Swelling Procedures: None Type of Care/Length of Stay Estimated LOS: Convalescent Care Less Than 30 days Type of Care Needed: Skilled Rehab Potential: Good Prognosis: Good Additional Orders/Day of Discharge Day of Discharge: 06/25/22 Dietary and Speech Recommendations Dietitian Recommendations/Changes: continue cardiac diet w/ fluid restriction as indicated Discharge Plan Admission Admit Date/Time: 06/17/22 22:27 Primary Reason for Your Visit: debility. CHF. Attending Provider: Aníbal Driver Primary Care Provider: Jessica Aguero Consulting Providers: Gerhard Hernadez ; Malia Wallace ; Sean Elizabeth Discharge Orders/Prescriptions Prescriptions: Continued anastrozole 1 mg tablet 1 mg PO DAILY sotalol 80 mg tablet 80 mg PO BID Qty: 60 11RF omeprazole 20 MG capsule 20 mg PO DAILY Label Comments: DECREASES ACID IN THE STOMACH albuterol sulfate 1 PUFF inhaler 2 puff INHALATION Q4H PRN PRN (Reason: Asthma) Label Comments: copd zolpidem 12.5 MG tablet,ext release multiphase 6.25 mg PO QHS PRN PRN (Reason: Insomnia) calcium citrate-vitamin D3 1 EACH tablet 2 tab PO DAILY Prolia 60 mg/mL Syringe 60 mg SUBCUT .[id number] pravastatin 20 mg tablet 20 mg PO QHS Label Comments: TAKE 1 TABLET BY MOUTH EVERY DAY AT BEDTIME Eliquis 5 mg tablet 5 mg PO BID Label Comments: TAKE 1 TABLET BY MOUTH TWICE DAILY acetaminophen 650 mg Tablet Extended Release 650 mg PO BID hydrocodone-acetaminophen 5-325 mg tablet 1 tab PO BID PRN (Reason: Pain) 3 Days Qty: 6 0RF potassium chloride 10 mEq tablet extended release 10 meq PO DAILY Qty: 90 3RF diltiazem HCl [Cardizem CD] 120 mg capsule,extended release 24hr 120 mg PO BID Qty: 180 3RF Changed furosemide 40 mg tablet 40 mg PO BIDCM Qty: 90 3RF Referrals / Follow Up: Jessica Ageuro DO [Primary Care Provider] - Within 2 Weeks Disposition Disposition (needs filled in before D/C Order can be placed): Long Term Facility (1) (HFpEF) heart failure with preserved ejection fraction Qualifiers: Heart failure chronicity: acute on chronic Qualified Code(s): I50.33 - Acute on chronic diastolic (congestive) heart failure
--- NOTE | 2022-06-25 11:39 | PCM.DC.SUM ---
Providers Date of Admission: 06/17/22 Primary Care Physician: Dr. Jessica Aguero DO Reason For Visit: FALL; WEAKNESS Diagnosis Discharge Diagnosis (1) Debility: Status: Acute Code(s): R53.81 - Other malaise Plan: Debility, acute on chronic, patient unable to ambulate, complains of pain in her back and her leg: Patient was admitted to [facility]. Lumbar spine x-ray was unremarkable Pelvic x-ray showed severe degenerative changes in the right hip with joint space narrowing PT/OT to evaluate and treat patient might need SNF. Continue with current pain regimen with scheduled Tylenol, as needed oxycodone. 06/19: Discussed with case hardener for rehab. 06/20: Patient just gave her options of SNF to case hardener. Pre-CERT pending. 06/21: Discussed with the case hardener. Patient changed her mind and she wants to go to different halfway. Pre-CERT pending. 06/22: Pre-CERT is still pending. Mild diarrhea. Even though patient on MiraLAX as needed, discontinue MiraLAX. 06/23: Pre-CERT is pending. 06/24: precert pending. 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 Last echo in July 2021 reported EF 55 to 60% mild AI no significant change from previous echo. Admitting chest x-ray shows fluid overload ; patient is on 40 mg p.o. Lasix daily increased to 40 mg twice daily. Continue incentive spirometer 06/19:Patient did not had good urine output with oral Lasix therefore Lasix changed to 40 mg IV twice daily. Monitor electrolytes. Heart failure core measures including intake and output, fluid restriction less than 1500 mL, daily weight monitoring, kidney and electrolytes monitoring 06/20: Patient had good urine output with IV Lasix. Continue weight. Leg swelling is much improved. 06/21: Overall following the course it seems patient was admitted with acute on chronic shortness of breath with elevated BNP, increased leg swelling and chest x-ray showing pulmonary venous congestion therefore acute on chronic HFpEF. Furosemide 40 BID. Plan Chronic conditions: Paroxysmal atrial fibrillation/CAD/hypertension/hyperlipidemia. Recently cardioverted in the ED on 05/31/2022. Patient had ablation by Dr. Alcantara in [facility] few weeks ago but is still in A. fib. Continue on sotalol, Cardizem, Eliquis, statin 06/20: Heart rate is controlled. 06/23: Heart rate and blood pressure are controlled. No fever Breast CA, continue anastrozole: Patient had severe right cancer diagnosed in 2017 and had mastectomy. She had delayed healing of the wound with whole therefore was started on chemotherapy late in November and she completed in late February. DVT prophylaxis?on Eliquis DC to [facility]. Medications at Discharge Home Medications albuterol sulfate 90 mcg/actuation aerosol inhaler 2 puff inhalation Q4H PRN PRN Asthma 06/16/13 omeprazole 20 mg capsule,delayed release 20 mg PO DAILY reflux 06/16/13 calcium citrate 315 mg calcium-vitamin D3 6.25 mcg (250 unit) tablet 2 tab PO DAILY SUPPLEMENT 10/24/18 zolpidem 12.5 mg tablet,extended release,multiphase 6.25 mg PO QHS PRN PRN Insomnia 03/24/19 denosumab 60 mg/mL subcutaneous syringe (Prolia) 60 mg subcut .[id number] bones 11/25/20 pravastatin 20 mg tablet 20 mg PO QHS CHOLESTEROL 04/28/21 potassium chloride 10 mEq tablet,extended release 10 meq PO DAILY #90 tabs 08/09/21 anastrozole 1 mg tablet 1 mg PO DAILY breast cancer 12/08/21 apixaban 5 mg tablet (Eliquis) 5 mg PO BID afib 12/28/21 diltiazem HCl 120 mg capsule,extended release 24 hr (Cardizem CD) 120 mg PO BID afib #180 caps 06/05/22 sotalol 80 mg tablet 80 mg PO BID #60 tabs 06/12/22 acetaminophen 650 mg tablet,extended release 650 mg PO BID pain 06/17/22 furosemide 40 mg tablet 40 mg PO BIDCM #90 tabs 06/25/22 hydrocodone-acetaminophen 5-325mg 5mg-325mg 1 tab PO BID PRN Pain 3 days #6 tabs 06/25/22 Hospital Course Operations None Procedures None Summary of Care Provided Minutes Spent on Discharge: 32 Weight / BMI Weight Weight: 82.6 kg Body Mass Index (BMI) 30.3 ABG / Lab / Microbiology Data Result Diagrams: 06/25/22 05:15 06/25/22 05:15 Laboratory: Laboratory Results - last 24 hr 06/25/22 05:15: WBC 6.0, RBC 3.56 L, Hgb 10.8 L, Hct 32.9 L, MCV 92.4, MCH 30.3, MCHC 32.8, RDW Std Deviation 43.8, RDW Coeff of Jenna 13.0, Plt Count 231, MPV 9.2, Immature Gran % (Auto) 0.800, Neut % (Auto) 61.5, Lymph % (Auto) 22.1, [place] % (Auto) 12.3 H, Eos % (Auto) 3.0, Baso % (Auto) 0.3, Absolute Neuts (auto) 3.7, Absolute Lymphs (auto) 1.33, Nucleated RBC % 0 06/25/22 05:15: Sodium 139, Potassium 3.8, Chloride 101, Carbon Dioxide 33.0 H, Anion Gap 5, BUN 27 H, Creatinine 1.17 H, Estim Creat Clear Calc 35.66, Est GFR (MDRD) Af Amer 58 L, Est GFR (MDRD) Non-Af 48 L, BUN/Creatinine Ratio 23.1 H, Glucose 172 H, Calcium 9.6 Microbiology: Microbiology 06/25/22 10:35 Nasal Secretion SARS-CoV-2 Antigen (Rapid) - Final Meaningful Use Info Meaningful Use Diagnoses (Choose all that apply): CHF CHF MONTRELL/ARB ordered at discharge?: No Reason MONTRELL/ARB not ordered?: Not indicated Documented LVEF (%): 55 Discharge Plan Admission Admit Date/Time: 06/17/22 22:27 Primary Reason for Your Visit: debility. CHF. Attending Provider: Aníbal Driver Primary Care Provider: Jessica Aguero Consulting Providers: Gerhard Hernadez ; Malia Wallace ; Sean Elizabeth Discharge Orders/Prescriptions Prescriptions: Continued anastrozole 1 mg tablet 1 mg PO DAILY sotalol 80 mg tablet 80 mg PO BID Qty: 60 11RF omeprazole 20 MG capsule 20 mg PO DAILY Label Comments: DECREASES ACID IN THE STOMACH albuterol sulfate 1 PUFF inhaler 2 puff INHALATION Q4H PRN PRN (Reason: Asthma) Label Comments: copd zolpidem 12.5 MG tablet,ext release multiphase 6.25 mg PO QHS PRN PRN (Reason: Insomnia) calcium citrate-vitamin D3 1 EACH tablet 2 tab PO DAILY Prolia 60 mg/mL Syringe 60 mg SUBCUT .[id number] pravastatin 20 mg tablet 20 mg PO QHS Label Comments: TAKE 1 TABLET BY MOUTH EVERY DAY AT BEDTIME Eliquis 5 mg tablet 5 mg PO BID Label Comments: TAKE 1 TABLET BY MOUTH TWICE DAILY acetaminophen 650 mg Tablet Extended Release 650 mg PO BID hydrocodone-acetaminophen 5-325 mg tablet 1 tab PO BID PRN (Reason: Pain) 3 Days Qty: 6 0RF potassium chloride 10 mEq tablet extended release 10 meq PO DAILY Qty: 90 3RF diltiazem HCl [Cardizem CD] 120 mg capsule,extended release 24hr 120 mg PO BID Qty: 180 3RF Changed furosemide 40 mg tablet 40 mg PO BIDCM Qty: 90 3RF Referrals / Follow Up: Jessica Aguero DO [Primary Care Provider] - Within 2 Weeks Disposition Disposition (needs filled in before D/C Order can be placed): Intermediate Facility Charges/Coding Visit Charges Inpatient E&M: 48111 Disch Hosp
--- NOTE | 2022-06-25 11:59 | PHA.DC.MR ---
Pharmacy Service has performed discharge medication reconciliation for this patient. The patient's discharge medication list was reviewed for discrepancies and discrepancies were resolved. Home Medications albuterol sulfate 90 mcg/actuation aerosol inhaler 2 puff inhalation Q4H PRN PRN Asthma 06/16/13 omeprazole 20 mg capsule,delayed release 20 mg PO DAILY reflux 06/16/13 calcium citrate 315 mg calcium-vitamin D3 6.25 mcg (250 unit) tablet 2 tab PO DAILY SUPPLEMENT 10/24/18 zolpidem 12.5 mg tablet,extended release,multiphase 6.25 mg PO QHS PRN PRN Insomnia 03/24/19 denosumab 60 mg/mL subcutaneous syringe (Prolia) 60 mg subcut .[id number] bones 11/25/20 pravastatin 20 mg tablet 20 mg PO QHS CHOLESTEROL 04/28/21 potassium chloride 10 mEq tablet,extended release 10 meq PO DAILY #90 tabs 08/09/21 anastrozole 1 mg tablet 1 mg PO DAILY breast cancer 12/08/21 apixaban 5 mg tablet (Eliquis) 5 mg PO BID afib 12/28/21 diltiazem HCl 120 mg capsule,extended release 24 hr (Cardizem CD) 120 mg PO BID afib #180 caps 06/05/22 sotalol 80 mg tablet 80 mg PO BID #60 tabs 06/12/22 acetaminophen 650 mg tablet,extended release 650 mg PO BID pain 06/17/22 furosemide 40 mg tablet 40 mg PO BIDCM #90 tabs 06/25/22 hydrocodone-acetaminophen 5-325mg 5mg-325mg 1 tab PO BID PRN Pain 3 days #6 tabs 06/25/22
--- NOTE | 2022-06-25 12:12 | NURSING ---
attempted to give Nurse to Nurse report to [facility]- nurse unavailable, voicemail left with [facility] nurses station requesting return phone call.
[2022-06-25 12:18] VITALS: BP 126/62; PULSE 56; RESP 18; TEMP 36.8; O2SAT 95
--- NOTE | 2022-06-25 12:22 | CASEMGMT ---
Social Work? ALFONSO notified pt and pt family of discharge to [facility] today. ALFONSO printed PASRR convalescent form from [facility]. Set up wheelchair transportation through [facility] for 12:30pm. ALFONSO faxed all discharge orders to [facility] via [id number]. Called Chyna at [facility] and notified of discharge time. ALFONSO notified pt nurse of transport time. ALFONSO made copies of discharge orders and placed on pt chart. Sent original orders in envelope with pt upon discharge.?? Disposition: [facility], skilled, convalescent, level of care? SABI Bland
== END 2022-06-25 12:50 | DRG 291 ==
LOC: ED 22:56 → MS3 23:54
PROVIDERS: Internal Medicine; Admitting Provider Hospitalist; Emergency Provider Emergency Medicine; PCP Internal Medicine
DX: I11.0 Hypertensive heart disease with heart failure (principal); L89.152 Pressure ulcer of sacral region, stage 2; J44.9 Chronic obstructive pulmonary disease, unspecified; I50.33 Acute on chronic diastolic (congestive) heart failure; I48.0 Paroxysmal atrial fibrillation; E66.9 Obesity, unspecified; Z79.01 Long term (current) use of anticoagulants; E78.00 Pure hypercholesterolemia, unspecified; I25.10 Atherosclerotic heart disease of native coronary artery without angina pectoris; G47.33 Obstructive sleep apnea (adult) (pediatric); M16.0 Bilateral primary osteoarthritis of hip; M17.12 Unilateral primary osteoarthritis, left knee; K59.00 Constipation, unspecified; M79.89 Other specified soft tissue disorders; R19.7 Diarrhea, unspecified; R09.02 Hypoxemia; R53.81 Other malaise; G89.29 Other chronic pain; M54.50 Low back pain, unspecified; Z68.30 Body mass index [BMI] 30.0-30.9, adult; Z79.811 Long term (current) use of aromatase inhibitors; Z20.822 Contact with and (suspected) exposure to COVID-19; Z85.850 Personal history of malignant neoplasm of thyroid; Z85.3 Personal history of malignant neoplasm of breast; Z79.899 Other long term (current) drug therapy; Z99.81 Dependence on supplemental oxygen
CPT/HCPCS: 36415; 71045; 72100; 72170; 80048; 81001; 82550; 83880; 85025; 87426; 93005; 96374; 96375; 96376; 97110; 97116; 97163; 97166; 97530; 97535; 99221; 99251; 99252; 99285; J7030; A4216; G0378; G0463; J1940; J2405

== ENCOUNTER → 2022-08-03 | Outpatient (CLI) | payer MEDICARE, MEDICAID, SELFPAY ==
--- NOTE | 2022-08-03 12:45 | ECHOCS_ITS ---
Reason For Study: Afib/Flutter Procedure This was a 2D Doppler, Color Flow transthoracic echocardiogram. Techncially difficult study due to patients body habitus and condition. Echo performed with patient in wheel chair due to sore back and was unable to lay down. The study was technically difficult. Contrast injection was performed. Exam performed in department. Left Ventricle Normal LV size. Sigmoid septum. Left ventricular systolic function is normal. The estimated ejection fraction is 65 %. Diastolic function is indeterminate. No regional wall motion abnormalities noted. Right Ventricle Normal RV size. Normal systolic function. Atria The left atrium is mildly enlarged. Normal right atrium. No doppler evidence for ASD. Mitral Valve There is mild mitral annular calcification. Extension of the mitral annular calcification onto the base of the posterior mitral valve leaflet. Trivial mitral valve insufficiency. Tricuspid Valve Normal tricuspid valve. Trivial tricuspid valve insufficiency. Right ventricular systolic pressure estimated to be 22 mmHg. Aortic Valve Trisinus/trileaflet aortic valve. Mild focal aortic valve calcification. Trivial aortic valve insufficiency. Pulmonic Valve The pulmonic valve is not well visualized. Trivial pulmonic valve insufficiency. Great Vessels Normal sized aortic root. Pericardium/Pleural No pericardial effusion. Epicardial fat. Medication 20 gauge I.V. with prn adaptor inserted into left arm. Diluted definity 2.5ml given slow IV push to enhance endocardial definition. MMode/2D Measurements & Calculations LVIDd: 4.3 cm IVSd: 0.83 cm Ao root diam: 3.3 cm LVIDs: 2.8 cm LVPWd: 0.83 cm FS: 36.3 % Time Measurements MV dec time: 0.21 sec Doppler Measurements & Calculations MV E max matthew: 76.9 cm/sec Lat Peak E' Matthew: 6.0 cm/sec Med Peak E' Matthew: 5.3 cm/sec MV A max matthew: 48.2 cm/sec E/E' lat: 12.9 E/E' med: 14.6 MV E/A: 1.6 MV V2 max: 98.3 cm/sec MV P1/2t max matthew: 98.7 cm/sec Ao V2 max: 106.4 cm/sec MV max P.9 mmHg MV P1/2t: 73.8 msec Ao max P.5 mmHg MV V2 mean: 30.3 cm/sec MV mean P.57 mmHg MV dec slope: 391.8 cm/sec2 MV V2 VTI: 35.8 cm MVA(P1/2t): 3.0 cm2 AI max matthew: 257.6 cm/sec LV V1 max: 74.9 cm/sec PA V2 max: 83.9 cm/sec AI max P.5 mmHg LV V1 max P.2 mmHg AI dec slope: 58.4 cm/sec2 AI P1/2t: 1291 msec PI dec slope: 43.9 cm/sec2 TR max matthew: 220.1 cm/sec TR max P.4 mmHg ECHO/Echo Complete W/ Contrast Interpretation Summary The study was technically difficult. Contrast injection was performed. Left ventricular systolic function is normal. The estimated ejection fraction is 65 %. Sigmoid septum. The left atrium is mildly enlarged. There is mild mitral annular calcification. Extension of the mitral annular calcification onto the base of the posterior mi tral valve leaflet. Trivial mitral valve insufficiency. Trivial tricuspid valve insufficiency. Mild focal aortic valve calcification. Trivial aortic valve insufficiency. Trivial pulmonic valve insufficiency. Epicardial fat. Right ventricular systolic pressure estimated to be 22 mmHg. Diastolic function is indeterminate. Ordering Physician: Beatriz Raygoza Referring Physician: Jessica Aguero M.D. Performed By: Mika Marshall RCS
--- NOTE | 2022-08-03 14:55 | EKG12_ITS ---
Test Reason : Blood Pressure : / mmHG Vent. Rate : 042 BPM Atrial Rate : 042 BPM P-R Int : 220 ms QRS Dur : 080 ms QT Int : 616 ms P-R-T Axes : 025 016 055 degrees QTc Int : 514 ms Marked sinus bradycardia with 1st degree A-V block Prolonged QT Abnormal ECG Confirmed by MISTY GONZALEZ, JILL ([id number]), material expeditor ALEXEY BILLINGS ([id number]) on 08/06/2022 12:10:44 PM Referred By: Confirmed By:JILL JAY MD
== END | disposition home or self-care (01) ==
LOC: CVS 12:42
PROVIDERS: PCP Internal Medicine; Visit Provider Nurse Practitioner Gerontology
DX: I48.0 Paroxysmal atrial fibrillation (principal); R00.1 Bradycardia, unspecified; Z98.890 Other specified postprocedural states
CPT/HCPCS: 93005; 93225; 93226; 93306; Q9957; A4216; C8929

== ENCOUNTER 2022-08-09 12:04 | Outpatient (CLI) | payer MEDICARE, MEDICAID, SELFPAY ==
--- NOTE | 2022-08-09 12:29 | BD_ITS ---
STUDY: DUAL ENERGY X-RAY ABSORPTIOMETRY / DXA REASON FOR EXAM: Female, 76 years old. SCREENING TECHNIQUE: Bone Mineral Density (BMD) measurements of both forearms were obtained. Patient was unable to lay supine for the duration of the examination. COMPARISON: Comparison is made with prior examination 05/17/2020. FINDINGS: Right Forearm: g/cm2 (0.478) / T-score (-1.9) / Z-score (1.0) Left Forearm: g/cm2 (0.493) / T-score (-1.6) / Z-score (1.2) BD/Dexa Bone Density Study IMPRESSION: The patient is considered osteopenic as outlined below according to World Wilber Organization (WHO) criteria with a moderate fracture risk. Reference Information: The T-score is the number of standard deviations above or below the standard which is normal for young adults at their peak bone mineral density. The World Health Organization (WHO) interprets the T-scores as follows: Above -1 Normal bone density Between -1 and -2.5 Osteopenia Equal to / or below -2.5 Osteoporosis As a practical clinical guideline, osteopenia may be graded as follows: Mild -1 through -1.5 Moderate -1.6 through -2.0 Severe -2.1 through -2.4 The Z-score is the number of standard deviations above or below age-matched controls. A Z-score of less than -1.5 would be considered abnormal. References: 1. NIH Osteoporosis and Related Bone Diseases www osteo.org 2. International Society for Clinical Densitometry www iscd.org 3. National Osteoporosis Foundation www nof.org Electronically Signed: Yared Chan MD at 13:08 EST ,
--- NOTE | 2022-08-09 12:29 | BI_ITS ---
MAMMOGRAPHY - UNILATERAL SCREENING: LEFT BREAST REASON FOR EXAM: Female, 76 years old. Routine annual screening examination (unilateral). PERTINENT HISTORY: Personal history of breast cancer. Prior right mastectomy and chemotherapy. Sister with breast cancer. Aunts with breast cancer. TECHNIQUE: Digital unilateral breast jimena (3D mammographic acquisition) in the CC and MLO projections. 2-D mediolateral oblique (MLO) and craniocaudad (CC) views of both breasts were obtained. CAD: Full Field Digital Mammography with Computer Added Detection was performed. COMPARISON: Comparison is made with prior examination dated 05/29/2021 and 05/26/2020. FINDINGS: Breast Composition: There are scattered areas of fibroglandular density. There are no dominant masses or suspicious calcifications. Stable scattered bilateral calcifications. No other significant abnormalities are identified. There has been no significant change since the prior study. BI/SCREEN MAMM (CAD) W/JIMENA UNI L IMPRESSION: Stable unilateral screening mammogram. Yearly follow-up mammogram recommended. (A) ASSESSMENT CATEGORY: BIRADS Category 2: Benign. A letter regarding these results will be sent to the patient by the facility within 30 days. Approximately 10% of breast cancers are not detected by mammography. A normal mammogram should not delay biopsy of a clinically suspicious abnormality. [id number] Electronically Signed: Yared Chan MD at 13:52 EST ,
[2022-08-09 13:48] LABS: Absolute Neutrophil Count 4.2 X10^3/uL (2.0-7.7); Basophil# 0.03 X10^3/uL; Basophil% 0.5 % (0-1); Eosinophil# 0.21 X10^3/uL; Eosinophils% 3.2 % (0-5); Hematocrit 38.4 % (37-47); Hemoglobin 12.1 g/dL (12.0-15.0); Lymphocyte % 18.5 % (19-41); Mean Corp Hgb Conc 31.5 g/dL (32-36); Mean Corpuscular Hgb 28.9 pg (27.0-32.0); Mean Corpuscular Volume 91.9 fL (81-99); Mean Platelet Vol. 9.8 fl (6.2-12.0); Monocyte# 0.78 X10^3/uL; NRBC Flagged by Analyzer 1.1 % (0-5); Neutrophil # 4.23 X10^3/uL (2.7-7.7); Neutrophil % 65.2 % (47-70); Platelet Count 209 K/mm3 (150-450); RBC Distribution Width CV 12.8 % (11.6-14.6); RBC Distribution Width SD 42.7 fl (35.1-43.9); Red Blood Count 4.18 M/mm3 (4.2-5.4); White Blood Count 6.5 K/mm3 (4.4-11.0)
[2022-08-09 14:09] LABS: Iron 65 ug/dL (50-170); Iron Binding Capacity,Total 347 ug/dL (250-450); PERCENT IRON SATURATION 18.7 % (15.0-55.0)
[2022-08-09 14:14] LABS: Vitamin B12 324 pg/mL (211-911)
[2022-08-09 20:18] LABS: Xtra Tube EP Lab EXTRA TUBE
== END 2022-08-09 23:59 | disposition home or self-care (01) ==
LOC: OPBD 12:06
PROVIDERS: PCP Internal Medicine; Referring Provider Internal Medicine Hematology & Oncology; Visit Provider Internal Medicine Hematology & Oncology
DX: Z12.31 Encounter for screening mammogram for malignant neoplasm of breast (principal); C73 Malignant neoplasm of thyroid gland; Z90.11 Acquired absence of right breast and nipple; Z92.21 Personal history of antineoplastic chemotherapy; Z80.3 Family history of malignant neoplasm of breast; Z85.3 Personal history of malignant neoplasm of breast; M81.0 Age-related osteoporosis without current pathological fracture; D50.0 Iron deficiency anemia secondary to blood loss (chronic); D64.9 Anemia, unspecified
CPT/HCPCS: 36415; 77063; 77067; 77080; 82607; 83540; 83550; 85025

== ENCOUNTER → 2022-12-06 | Outpatient (CLI) | payer MEDICARE, MEDICAID, SELFPAY ==
--- NOTE | 2022-12-06 11:13 | US_ITS ---
INDICATION: Swelling, mass, or lump on face EXAMINATION: Ultrasound US Head/Neck Soft Tissue TECHNIQUE: Sheth scale and color doppler imaging was performed of the thyroid gland. COMPARISON: None. FINDINGS: Right parotid gland 6.1 x 4.9 x 3.1 cm. Left parotid gland 5.6 x 4.5 x 2.3 cm. Corresponding to palpable abnormality the right parotid gland demonstrates a heterogeneous mass with solid and cystic components 5.8 x 3.4 x 2.9 cm with central cystic focus. This could represent large intraparotid lymph node, pleomorphic adenoma, Warthin''s tumors, mucoepidermoid carcinoma or adenoid cystic carcinoma. US/Head/Neck Soft Tissue IMPRESSION: Prominent right parotid mass. Differential diagnostic considerations above. Electronically Signed: Cayetano Lay MD, GIANCARLO at 19:37 EDT ,
== END | disposition home or self-care (01) ==
LOC: US 11:10
PROVIDERS: PCP Internal Medicine; Referring Provider Internal Medicine; Visit Provider Internal Medicine
DX: R22.0 Localized swelling, mass and lump, head (principal)
CPT/HCPCS: 76536

== ENCOUNTER → 2022-12-27 | Outpatient (CLI) | payer MEDICARE, MEDICAID, SELFPAY ==
--- NOTE | 2022-12-27 | ASPOS_PTH ---
PATIENT: ALLISON MAHER LOC: [facility] U#:[id number] AGE/SX: 76/F ROOM: RE12/27/[address]: Dr. Jason Hernandez MD : [id number] BED: DIS: 12/27/2022 SPEC #: [id number] RECD: 12/27/22 12:00 STATUS: ZEV PHIPPSAna #: [id number] KEAGAN: 12/27/22 00:[address]: Jason Hernandez DEPT: CYTOLOGY RECD BY: Allen Foy ENTERED: 12/27/22 12:00 SP TYPE: ASP HERE OTHR DR: Dr. Jessica Aguero, DO Tissues: Parotid gland, NOS Procedures: Surgery Specimen Level IV Cytology Other Fine Needle Asp on Site HEADER OPERATION: Fine needle aspiration, right parotid mass PRE-OP DIAGNOSIS: Right parotid mass TISSUE SUBMITTED: Right parotid mass DIAGNOSIS CYTOLOGY Right parotid mass, fine needle aspiration (smears, cytospin and cell block): Negative for malignant cells. See comment. SJ:alexis 12/28/2022 COMMENT The specimen is evaluated at the time of FNA by Dr. Ann. Immediate Evaluation = Consistent with chronic sialoadenitis with crystalline debris. The specimen shows normal salivary gland tissue and crystalline debris. The findings are suggestive of chronic sialoadenitis. Case has been reviewed in consultation with Dr. Ann who concurs with the above diagnosis. IDC:AM CYTOLOGY STUDY Slides are reviewed. CYTOLOGY GROSS Received is 7.0 ml of clear callejas fluid labeled with the patient's name, and designated right parotid mass. 11 imprints and 5 paps are made from the submitted fluid and the rest is added to CytoLyt for cell block preparation. Submitted for cytology study. / AM:alexis 12/27/2022 TC:5 CPT: 09924, 37455, 45906, 20954, 94173, 67816
== END | disposition home or self-care (01) ==
PROVIDERS: PCP Internal Medicine; Referring Provider Otolaryngology Otolaryngology/Facial Plastic Surgery; Visit Provider Otolaryngology Otolaryngology/Facial Plastic Surgery
DX: R22.1 Localized swelling, mass and lump, neck (principal)
CPT/HCPCS: 10021; 88161; 88305

== ENCOUNTER → 2023-05-16 | Outpatient (CLI) | payer MEDICARE, MEDICAID, SELFPAY ==
[2023-05-16 14:59] LABS: Absolute Neutrophil Count 1.9 X10^3/uL (2.0-7.7); Basophil# 0.02 X10^3/uL; Basophil% 0.6 % (0-1); Eosinophil# 0.04 X10^3/uL; Eosinophils% 1.2 % (0-5); Hematocrit 36.5 % (37-47); Hemoglobin 11.6 g/dL (12.0-15.0); Lymphocyte % 28.8 % (19-41); Mean Corp Hgb Conc 31.8 g/dL (32-36); Mean Corpuscular Hgb 28.4 pg (27.0-32.0); Mean Corpuscular Volume 89.5 fL (81-99); Mean Platelet Vol. 9.7 fl (6.2-12.0); Monocyte# 0.54 X10^3/uL; Monocyte% 15.6 % (0-10); NRBC Flagged by Analyzer 0 % (0-5); Neutrophil # 1.86 X10^3/uL (2.7-7.7); Neutrophil % 53.5 % (47-70); Platelet Count 158 K/mm3 (150-450); RBC Distribution Width CV 13.2 % (11.6-14.6); RBC Distribution Width SD 42.7 fl (35.1-43.9); Red Blood Count 4.08 M/mm3 (4.2-5.4); White Blood Count 3.5 K/mm3 (4.4-11.0)
[2023-05-16 15:56] LABS: Anion Gap 7 (5-15); BUN 27 mg/dL (7-18); BUN/Creat Ratio 28.7 RATIO (10-20); Calcium,Total 9.6 mg/dL (8.5-10.1); Chloride 106 mmol/L (98-107); Creatinine, Serum 0.94 mg/dL (0.55-1.02); EST Glomerular Filtration Rate 61 mL/min (>60); Est Glom Filt Rate - Afr Amer 74 mL/min (>60); Glucose 143 mg/dL (74-106); Potassium 4.2 mmol/L (3.5-5.1); Sodium Level 141 mmol/L (136-145)
[2023-05-22 19:07] LABS: Immunoglobulin A 198 mg/dL (64-422); Immunoglobulin E 51 IU/mL (6-495); Immunoglobulin G 696 mg/dL (586-1602); Immunoglobulin M 74 mg/dL (26-217)
== END | disposition home or self-care (01) ==
LOC: LAB 14:19
PROVIDERS: PCP Internal Medicine; Referring Provider Physician Assistant Medical; Visit Provider Physician Assistant Medical
DX: J32.9 Chronic sinusitis, unspecified (principal)
CPT/HCPCS: 36415; 80048; 82784; 82785; 85025

== ENCOUNTER 2023-09-01 13:54 | Inpatient (IN) | payer MEDICARE, MEDICAID, SELFPAY ==
[2023-09-01 13:56] VITALS: BP 154/72; PULSE 82; RESP 14; TEMP 36.4; O2SAT 95; BMI 31.6
--- NOTE | 2023-09-01 14:17 | EDS_ITS ---
HPI HPI - GI History of Present Illness Chief Complaint: Diarrhea Detail of Chief Complaint: Diarrhea for a week and now rectal bleeding. Informant: patient Nausea/Vomiting/Emesis GI Symptom: Negative for Nausea or Vomiting Diarrhea/Melena/Hematochezia GI Symptom: Positive for Diarrhea and Hematochezia; Negative for Melena Onset: Today Stool Quality: Positive for Watery Severity: Moderate Associated Symptoms Associated Symptoms: Negative for Dysuria, Frequency, Hematuria or Urgency Narrative Narrative: 77-year-old female history of CAD, A-fib on Eliquis, pacemaker prior breast cancer and hemorrhoids. States that she has had trouble with her bowels for the last several years. At times constipation at times of diarrhea. For the last several weeks she has been having normal bowel movements and then over the last week she has had watery diarrhea. 5-7 episodes a day. Denies any abdominal pain and some mild cramping. Today she had 2 bowel movements of significant blood in the toilet bowl and even on the floor of the bathroom.No prior history of GI bleed. No hematemesis. Prior similar symptoms: No Recent Illness/Hospitalization: No PFSH PFSH Medical History Anemia Anticoagulant long-term use Asthma Atherosclerotic heart disease of [place] coronary artery without angina pectoris Atrial fibrillation B12 deficiency anemia Bilateral pleural effusion CAD (coronary artery disease) Chemo-induced gastroenteritis Chemotherapy induced nausea and vomiting Chronic anticoagulation Chronic pain Colitis Constipation COPD (chronic obstructive pulmonary disease) Degenerative joint disease of right hip Depression Educational circumstance Encounter for screening for malignant neoplasm of colon ER+ (estrogen receptor positive status) Essential hypertension GERD (gastroesophageal reflux disease) [place] filter in place Heart failure, diastolic, chronic Hemorrhoid History of atrial fibrillation HTN (hypertension) Hx of deep vein thrombophlebitis of lower extremity Hx of hemorrhoids Hyperlipidemia Insomnia Iron deficiency anemia due to chronic blood loss Lumbar spondylosis Obesity Obstructive sleep apnea Osteoarthritis Osteoporosis Osteoporosis Pancytopenia Paroxysmal atrial fibrillation Paroxysmal atrial fibrillation Personal history of pulmonary embolism port placement PORT REMOVAL Positive fecal occult blood test 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 Primary cancer of right female breast Pure hypercholesterolemia PVD (peripheral vascular disease) Rectal prolapse Sepsis Thyroid cancer Home Medications albuterol sulfate 90 mcg/actuation aerosol inhaler 2 puff inhalation Q4H PRN PRN Asthma 06/16/13 [History Last Taken 12/26/21] omeprazole 20 mg capsule,delayed release 20 mg PO DAILY reflux 06/16/13 [History Last Taken 06/16/22 10:00] calcium citrate 315 mg calcium-vitamin D3 6.25 mcg (250 unit) tablet 2 tab PO DAILY SUPPLEMENT 10/24/18 [History Last Taken 06/16/22 10:00] zolpidem 12.5 mg tablet,extended release,multiphase 6.25 mg PO QHS PRN PRN Insomnia 03/24/19 [History Last Taken 07/10/21] denosumab 60 mg/mL subcutaneous syringe (Prolia) 60 mg subcut .[id number] bones 11/25/20 [History Last Taken 12/03/21] pravastatin 20 mg tablet 20 mg PO QHS CHOLESTEROL 04/28/21 [History Last Taken 06/15/22] acetaminophen 650 mg tablet,extended release 650 mg PO BID pain 06/17/22 [History Last Taken Unknown] hydrocodone-acetaminophen 5-325mg 5mg-325mg 1 tab PO BID PRN Pain 3 days #6 tabs 06/25/22 [Rx Last Taken Unknown] apixaban 5 mg tablet (Eliquis) 5 mg PO BID afib #180 tabs 09/23/22 [Rx Last Taken Unknown] lisinopril 20 mg tablet 20 mg PO DAILY #90 tabs 11/01/22 [Rx Last Taken Unknown] anastrozole 1 mg tablet 1 mg PO DAILY breast cancer #90 tabs 03/13/23 [Rx Last Taken Unknown] furosemide 20 mg tablet 20 mg PO DAILY #90 tabs 05/09/23 [Rx Last Taken Unknown] spironolactone 25 mg tablet 25 mg PO DAILY #90 tabs 05/16/23 [Rx Last Taken Unknown] Allergy/AdvReac Type Severity Reaction Status Date / Time niacin Allergy Intermediate I DON'T Verified 09/01/23 13:59 REMEMBER, I CAN'T TAKE IT bee venom protein (honey bee) Allergy Swelling Verified 09/01/23 13:59 Family History Brother Diabetes Heart disease Sister Breast cancer Mother Cancer brain and bone mets Aunt Breast cancer Grandmother Cancer Surgical History History of appendectomy History of cholecystectomy History of incisional hernia repair History of radiofrequency ablation procedure for cardiac arrhythmia (~05/25/22) Hx of atrioventricular node ablation Hx of mastectomy S/P carpal tunnel release S/P cataract extraction S/P hysterectomy S/P lumbar discectomy S/P partial thyroidectomy S/P revision of total knee S/P right breast biopsy S/P total knee replacement Social History household members: none Smoking Status: Never smoker alcohol intake: never substance use type: does not use caffeine: No ROS ROS ED ROS Narrative Diarrhea. Review of Systems ROS Unobtainable: Denies due to encephalopathy Constitutional Constitutional ED: Denies chills or fever(s) ENT ENT ED: Denies ear pain, rhinorrhea or sore throat Cardiovascular Cardiovascular: Denies chest pain, palpitations or racing heartbeat Respiratory/Chest Respiratory/Chest: Denies cough, dyspnea or dyspnea on exertion Gastrointestinal Gastrointestinal: Reports diarrhea; Denies abdominal pain, constipation, melena, nausea or vomiting Genitourinary Genitourinary ED: Denies dysuria or hematuria Musculoskeletal Musculoskeletal: Denies arthralgias, back pain, myalgias or neck pain Integumentary Denies abscess, Abrasions or rash Neurologic Neurologic: Denies headache(s) Psychiatric Psychiatric: Denies anxiety or depression Endocrine Endocrinology: Denies polydipsia, polyphagia or polyuria Hematologic/Lymphatic Hematologic/Lymphatic: Denies easy bleeding or easy bruising Allergic/Immunologic Allergic/Immunologic ED: Denies mouth swelling, tongue swelling or urticaria EXAM Physical Exam Narrative Exam Narrative: Well-appearing 77-year-old female. Vital signs stable afebrile. Does not look septic or toxic. No acute distress. HEENT exam unremarkable. Lungs clear to auscultation. Heart regular rhythm no murmur. Abdomen soft nontender. Normal bowel sounds no peritoneal signs. Moving all 4 extremities. Nontender no edema. Neurologically she is awake and alert no focal motor deficits.Rectal exam she had stool in the rectal vault. Currently there is no blood or clots. Const Vital Signs: 09/01/23 13:56 Temperature 97.6 F L Temperature Source Temporal Pulse Rate 82 Respiratory Rate 14 Blood Pressure 154/72 H Blood Pressure Mean 99 Pulse Ox 95 Oxygen Delivery Method Room Air Positive well nourished and well developed; Negative for cachectic, contractures or unkempt General Appearance ED: well developed; Negative for unkempt, cachectic, contractures or pallor Nutritional Appearance: Negative for cachectic HEENT Reports moist mucous membranes normocephalic and atraumatic; Negative for trauma or tenderness Eyes PERRL and EOMs intact bilaterally General Eye ED: Negative for pale conjunctiva or scleral icterus Neck no lymphadenopathy, supple and no JVD General: Negative for tenderness Carotids: Negative for other Lymph Lymphatic: Negative for other Resp normal respiratory effort and clear to auscultation bilaterally Effort and Inspection: Negative for respiratory distress or retractions Auscultation: Negative for rales, rhonchi or wheezes Cardio regular rate, regular rhythm, S1 normal heart sound, S2 normal heart sound and no murmurs Rate: Negative for bradycardia or tachycardic Rhythm: Negative for abnormal rhythm GI non-tender, non-distended and no masses Inspection: Negative for abdominal distention Auscultation: normoactive bowel sounds Palpation: soft; Negative for tender, guarding or rebound tenderness present Back/Spine no CVA tenderness General Back: Negative for CVA tenderness Cervical Spine: Negative for cervical spine tenderness Thoracic Spine / Upper Back: Negative for thoracic spinal tenderness Lumbar Spine / Lower Back: Negative for lumbar spinal tenderness Coccyx: Negative for other Extremity full ROM General Extremety ED: Negative for edema or tenderness General Extremity: Negative for edema Neuro Sensorium / Orientation: alert, oriented to person, oriented to place and oriented to time Motor Exam: strength 5/5 throughout Psych mental status grossly normal and thought process normal Appearance: Negative for unkempt Attitude: No agitated Mood & Affect: tearful; Negative for depressed or anxious Skin no wounds General Skin Exam: Negative for jaundice or pallor Lesions: no lesions Rashes: no rashes Trauma: Negative for abrasion Nails: Negative for discolored MDM MDM MDM Narrative Medical decision making narrative: 77-year-old female with diarrhea for a week no recent antibiotics or possible admissions. She now is having hematochezia. She is on Eliquis. This is a GI bleed that may be from a hemorrhoid versus other etiologies. Screening labs are being obtained. Repeat exam at 3:20 PM no significant change. Patient has not had any diarrhea or has any further blood per rectum since she has been here. Exam otherwise unchanged. I am going to speak to the hospitalist about admission due to lower GI bleed and her being on blood thinner Eliquis. When you look at her old labs her blood count has been consistently coming down. History & Record Review Discussion w/independent historian: Patient Lab Data Attestation: I reviewed the patient's lab results. Lab results narrative: CBC shows a white count of 2 H&H 8.9 and 26. She had blood recently it was 9.3 and before that it was 11.6.Platelets are low at 135. Electrolytes show gap 7. BUN 28 creatinine 1.1. Glucose 145. Labs: Laboratory Results - last 24 hr 09/01/23 09/01/23 14:05 14:18 WBC 2.0 L RBC 2.83 L Hgb 8.9 L Hct 26.8 L MCV 94.7 MCH 31.4 MCHC 33.2 RDW Std Deviation 51.8 H RDW Coeff of Jenna 15.2 H Plt Count 135 L MPV 9.4 Immature Gran % (Auto) 0.500 Neut % (Auto) 46.0 L Lymph % (Auto) 37.5 [place] % (Auto) 15.0 H Eos % (Auto) 0.5 Baso % (Auto) 0.5 Absolute Neuts (auto) 0.9 L Absolute Lymphs (auto) 0.75 L Nucleated RBC % 0 Differential Comment SCANNED Sodium 143 Potassium 3.8 Chloride 105 Carbon Dioxide 31.0 Anion Gap 7 BUN 28 H Creatinine 1.18 H Estim Creat Clear Calc 41.91 Est GFR (MDRD) Af Amer 57 L Est GFR (MDRD) Non-Af 47 L BUN/Creatinine Ratio 23.7 H Glucose 145 H Calcium 9.4 Blood Type A POSITIVE Antibody Screen NEGATIVE Discharge Plan Dx/Rx/DC Orders Clinical Impression: Anemia, Chronic anticoagulation, Diarrhea, History of atrial fibrillation, Acute lower gastrointestinal bleeding Disposition Disposition: Acute Care Hospital [facility]
[2023-09-01 14:22] LABS: Absolute Lymphocyte Count 0.75 X10^3/uL (0.83-4.51); Absolute Neutrophil Count 0.9 X10^3/uL (2.0-7.7); Basophil# 0.01 X10^3/uL; Basophil% 0.5 % (0-1); Eosinophil# 0.01 X10^3/uL; Eosinophils% 0.5 % (0-5); Hematocrit 26.8 % (37-47); Hemoglobin 8.9 g/dL (12.0-15.0); Lymphocyte # 0.75 X10^3/ul (0.83-4.51); Lymphocyte % 37.5 % (19-41); Mean Corp Hgb Conc 33.2 g/dL (32-36); Mean Corpuscular Hgb 31.4 pg (27.0-32.0); Mean Corpuscular Volume 94.7 fL (81-99); Mean Platelet Vol. 9.4 fl (6.2-12.0); NRBC Flagged by Analyzer 0 % (0-5); Neutrophil # 0.92 X10^3/uL (2.7-7.7); POSITIVE DIFFERENTIAL YES; Platelet Count 135 K/mm3 (150-450); RBC Distribution Width CV 15.2 % (11.6-14.6); RBC Distribution Width SD 51.8 fl (35.1-43.9); Red Blood Count 2.83 M/mm3 (4.2-5.4)
[2023-09-01 14:30] LABS: Anion Gap 7 (5-15); BUN 28 mg/dL (7-18); BUN/Creat Ratio 23.7 RATIO (10-20); Calcium,Total 9.4 mg/dL (8.5-10.1); Chloride 105 mmol/L (98-107); Creatinine, Serum 1.18 mg/dL (0.55-1.02); EST Glomerular Filtration Rate 47 mL/min (>60); Est Glom Filt Rate - Afr Amer 57 mL/min (>60); Estimated Creatinine Clearance 41.91 ml/min; Glucose 145 mg/dL (74-106); Potassium 3.8 mmol/L (3.5-5.1); Sodium Level 143 mmol/L (136-145)
[2023-09-01 14:37] LABS: Differential Indicated SCAN CRITERIA MET
[2023-09-01 14:58] LABS: Differential Comment SCANNED
--- NOTE | 2023-09-01 16:19 | PCM.HP.STD ---
HPI - General General Date of Admission: 09/01/23 Date of Service: 09/01/23 Chief Complaint: BRBPR HPI Narrative ALLISON MAHER, is a 77-year-old female history of coronary artery disease, A-fib on Eliquis, prior breast cancer, hemorrhoids, pacemaker, GERD who presented to [facility] ED 09/01/23 w/ diarrhea and hematochezia. She has had trouble for her bowels for several years and alternates between constipation and diarrhea but over the past week she has had watery diarrhea 5-7 episodes a day w/ slight abdominal cramping and then today had 2 episodes of bowel movements with significant blood in toilet bowl and some on the floor. In ED vitals with blood pressure 154/72, heart rate 82 and patient 95% on room air. Hemoglobin 8.9 in ED, several days ago was 9.3 and prior that runs between 10 and 12. BMP appears to be at baseline. rectal exam by ED physician with brown stool with no blood at this time however given her significant episodes and hemoglobin lower than it was several months ago patient advised to be admitted. Hospitalist contacted for admission. Patient evaluated with son at bedside. She reports she has had normal bowel movements for several weeks until about a week ago when she started having significant amount of diarrhea, 5-8 episodes of watery diarrhea a day with some nausea and abdominal cramping and poor p.o. intake. Also has a canker sore on right side of her tongue which has made it hard with fluids as well. At 3 AM and 6 AM she had 2 episodes with blood per rectum, has not had further bleeding ED. [facility] Medical History Anemia Anticoagulant long-term use Asthma Atherosclerotic heart disease of [place] coronary artery without angina pectoris Atrial fibrillation B12 deficiency anemia Bilateral pleural effusion CAD (coronary artery disease) Chemo-induced gastroenteritis Chemotherapy induced nausea and vomiting Chronic anticoagulation Chronic pain Colitis Constipation COPD (chronic obstructive pulmonary disease) Degenerative joint disease of right hip Depression Educational circumstance Encounter for screening for malignant neoplasm of colon ER+ (estrogen receptor positive status) Essential hypertension GERD (gastroesophageal reflux disease) [place] filter in place Heart failure, diastolic, chronic Hemorrhoid History of atrial fibrillation HTN (hypertension) Hx of deep vein thrombophlebitis of lower extremity Hx of hemorrhoids Hyperlipidemia Insomnia Iron deficiency anemia due to chronic blood loss Lumbar spondylosis Obesity Obstructive sleep apnea Osteoarthritis Osteoporosis Osteoporosis Pancytopenia Paroxysmal atrial fibrillation Paroxysmal atrial fibrillation Personal history of pulmonary embolism port placement PORT REMOVAL Positive fecal occult blood test 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 Primary cancer of right female breast Pure hypercholesterolemia PVD (peripheral vascular disease) Rectal prolapse Sepsis Thyroid cancer Home Medications albuterol sulfate 90 mcg/actuation aerosol inhaler 2 puff inhalation Q4H PRN PRN Asthma 06/16/13 [History Last Taken 12/26/21] omeprazole 20 mg capsule,delayed release 20 mg PO DAILY reflux 06/16/13 [History Last Taken 06/16/22 10:00] calcium citrate 315 mg calcium-vitamin D3 6.25 mcg (250 unit) tablet 2 tab PO DAILY SUPPLEMENT 10/24/18 [History Last Taken 06/16/22 10:00] zolpidem 12.5 mg tablet,extended release,multiphase 6.25 mg PO QHS PRN PRN Insomnia 03/24/19 [History Last Taken 07/10/21] denosumab 60 mg/mL subcutaneous syringe (Prolia) 60 mg subcut .[id number] bones 11/25/20 [History Last Taken 12/03/21] pravastatin 20 mg tablet 20 mg PO QHS CHOLESTEROL 04/28/21 [History Last Taken 06/15/22] acetaminophen 650 mg tablet,extended release 650 mg PO BID pain 06/17/22 [History Last Taken Unknown] hydrocodone-acetaminophen 5-325mg 5mg-325mg 1 tab PO BID PRN Pain 3 days #6 tabs 06/25/22 [Rx Last Taken Unknown] apixaban 5 mg tablet (Eliquis) 5 mg PO BID afib #180 tabs 09/23/22 [Rx Last Taken Unknown] lisinopril 20 mg tablet 20 mg PO DAILY #90 tabs 11/01/22 [Rx Last Taken Unknown] anastrozole 1 mg tablet 1 mg PO DAILY breast cancer #90 tabs 03/13/23 [Rx Last Taken Unknown] furosemide 20 mg tablet 20 mg PO DAILY #90 tabs 05/09/23 [Rx Last Taken Unknown] spironolactone 25 mg tablet 25 mg PO DAILY #90 tabs 05/16/23 [Rx Last Taken Unknown] Allergy/AdvReac Type Severity Reaction Status Date / Time niacin Allergy Intermediate I DON'T Verified 09/01/23 13:59 REMEMBER, I CAN'T TAKE IT bee venom protein (honey bee) Allergy Swelling Verified 09/01/23 13:59 Family History Brother Diabetes Heart disease Sister Breast cancer Mother Cancer brain and bone mets Aunt Breast cancer Grandmother Cancer Surgical History History of appendectomy History of cholecystectomy History of incisional hernia repair History of radiofrequency ablation procedure for cardiac arrhythmia (~05/25/22) Hx of atrioventricular node ablation Hx of mastectomy S/P carpal tunnel release S/P cataract extraction S/P hysterectomy S/P lumbar discectomy S/P partial thyroidectomy S/P revision of total knee S/P right breast biopsy S/P total knee replacement Social History household members: none Smoking Status: Never smoker alcohol intake: never substance use type: does not use caffeine: No ROS ROS Narrative General: Denies fever/chills HENT: Denies headache, denies stuffy nose, denies sore throat EYES: Denies changes in vision Resp: Denies cough, denies shortness of breath Cardiac: Denies chest pain GI: Some nausea, diarrhea, blood per rectum, some abdominal cramping : Denies changes in urination Extremity: Denies swelling MSK: Denies weakness Neuro: Denies any numbness/tingling Heme: Bleeding per rectum Skin: Denies rashes Psychiatric: No complaints voiced Vital Signs Vital Signs Vital Signs: 09/01/23 13:56 Temperature 97.6 F L Temperature Source Temporal Pulse Rate 82 Respiratory Rate 14 Blood Pressure 154/72 H Blood Pressure Mean 99 Pulse Ox 95 Oxygen Delivery Method Room Air Weight Weight: 86.2 kg Body Mass Index (BMI) 31.6 Physical Exam Narrative General: Alert, oriented, no apparent distress HEENT: Atraumatic, normocephalic Eyes: Anicteric, normal conjunctiva, extraocular movements grossly intact Neck: Supple Respiratory: Clear to auscultation bilaterally, normal respiratory effort Cardiovascular: Regular rate and rhythm GI: Soft, has some tenderness mostly in right lower quadrant without rebound, guarding, rigidity Extremities: No edema Musculoskeletal: Moving all extremities Neuro: No overt focal neurological deficits Skin: No rashes appreciated Psych: Cooperative Results Lab / Micro Data 09/01/23 14:05 09/01/23 14:05 Labs: Laboratory Results - last 24 hr 09/01/23 14:05: WBC 2.0 L, RBC 2.83 L, Hgb 8.9 L, Hct 26.8 L, MCV 94.7, MCH 31.4, MCHC 33.2, RDW Std Deviation 51.8 H, RDW Coeff of Jenna 15.2 H, Plt Count 135 L, MPV 9.4, Immature Gran % (Auto) 0.500, Neut % (Auto) 46.0 L, Lymph % (Auto) 37.5, [place] % (Auto) 15.0 H, Eos % (Auto) 0.5, Baso % (Auto) 0.5, Absolute Neuts (auto) 0.9 L, Absolute Lymphs (auto) 0.75 L, Nucleated RBC % 0, Differential Comment SCANNED, Sodium 143, Potassium 3.8, Chloride 105, Carbon Dioxide 31.0, Anion Gap 7, BUN 28 H, Creatinine 1.18 H, Estim Creat Clear Calc 41.91, Est GFR (MDRD) Af Amer 57 L, Est GFR (MDRD) Non-Af 47 L, BUN/Creatinine Ratio 23.7 H, Glucose 145 H, Calcium 9.4 09/01/23 14:18: Blood Type A POSITIVE, Antibody Screen NEGATIVE Assessment & Plan Assessment/Plan (1) Acute lower gastrointestinal bleeding: (2) Anemia: (3) B12 deficiency anemia: (4) Atrial fibrillation: (5) GERD (gastroesophageal reflux disease): (6) HTN (hypertension): (7) 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: PLAN: Plan #BRBPR w/ concern for GIB -2 episodes of BRBPR prior to ED -Hgb 8.9 in ED, baseline previously appeared to be 10-12 that was 9.3 several days ago -Type and Cross -Trend H&H -Concerned this may have been lower bleed given patient's report -GI c/s -No bleeding in ED but 2 episodes this AM -Stool occult ordered #Diarrhea/n/v -With some abdominal cramping and bleeding, will obtain CT abdomen and pelvis -Will also obtain stool studies -IVF especially given contrast for CT scan -Zofran prn #Pancytopenia suspected to be secondary to B12 deficiency -Has had low white blood cell count since April, chronic anemia, platelets have been low since check 08/29 but no blood work prior to that -Will get peripheral smear -Pt follows with Dr. Spicer on outpt basis, it was felt that she may be pancytopenic due to B12 deficiency and was started on B12 injections -Patient due for B12 injection tomorrow #Afib and pacemaker -Hold eliquis # Chronic heart failure preserved ejection fraction -Holding Lasix and spironolactone -Daily weights, I's and O's -Fluid restriction, heart healthy diet -Last echo with EF 65% but indeterminant diastolic function #Hx breast cancer -On anastrozole #GERD -Continue PPI # CKD stage III a -Appears to be at baseline -Avoid nephrotoxic agents -Daily BMPs #Hx DVT/PE -Post op in 2016 -Holding eliquis #DVT ppx: SCDs Blanca Villegas MD Time spent in the patient's overall evaluation,decision-making process, review of diagnostic data, adjustment of management, discussion with other providers, nursing nursing and ancillary staff involved in patient's care documentation, 60 Minutes Charges/Coding Visit Charges Inpatient E&M: 59811 Init Hosp L2
--- NOTE | 2023-09-01 16:46 | CT_ITS ---
STUDY: CT ABDOMEN AND PELVIS WITH AND WITHOUT CONTRAST REASON FOR EXAM: Female, 77 years old. abd pain, diarrhea, PRBPR -- IV and oral contrast RADIATION DOSAGE (If Supplied By Facility): CTDIvol = ( 8.60 ) mGy, DLP = ( 2544.58 ) mGycm TECHNIQUE: Transaxial images were obtained from the dome of the diaphragm to the symphysis pubis with oral contrast. ivosue 370 100 ml was administered. Sagittal and coronal images were reconstructed. Individualized dose optimization techniques were used for this CT. COMPARISON: 04/22/2019 FINDINGS: Tiny bilateral pleural effusions with some bibasilar atelectasis. Cardiomegaly. Normal liver. There are surgical clips in the gallbladder fossa consistent with a prior cholecystectomy. Normal spleen. Normal pancreas. Normal bilateral adrenal glands. 3 cm round exophytic mass of the upper pole the right kidney demonstrates contrast enhancement (30-58 Hounsfield units) worrisome for small lesion. Correlation with ultrasound or MRI may be useful. Normal left kidney. Moderate-sized hiatal hernia. Diverticulum second portion the duodenum. There is diverticulosis, with thickening of the colon wall, and pericolonic inflammation changes consistent with acute diverticulitis. No loculated fluid collection to suggest abscess. No pneumoperitoneum to suggest perforation. There is non-visualization of the appendix. Normal abdominal aorta. Normal inferior vena cava. Normal retroperitoneum. Normal urinary bladder. There is a small umbilical hernia containing fat. Just inferior to the embolus hernia is a 2 cm hernia containing a segment of the transverse colon but without bowel obstruction. Mild levoscoliosis lumbar spine with degenerative disc disease. Status post transpedicular fixation at L2/L3. CT/CT Abd/Pelvis W/WO Contrast IMPRESSION: 1. Sigmoid diverticulitis without abscess or perforation. 2. Moderate-sized lateral hernia. 3. 3 cm exophytic enhancing mass of the upper pole the right kidney and further characterization with ultrasound or renal mass protocol MRI may be useful. Electronically Signed: Gareth Levy MD at 22:45 EST ,
[2023-09-01 16:55] VITALS: BMI 29.9
[2023-09-01 17:07] VITALS: BP 148/54; PULSE 65; RESP 18; TEMP 36.4; O2SAT 96
[2023-09-01] MEDS: 0.9% Normal Saline (1000mL) 1,000 ML 50 ML IV (17:50)
[2023-09-01 18:32] LABS: Hematocrit 26.3 % (37-47); Hemoglobin 8.8 g/dL (12.0-15.0); Mean Corp Hgb Conc 33.5 g/dL (32-36); Mean Corpuscular Hgb 31.7 pg (27.0-32.0); Mean Corpuscular Volume 94.6 fL (81-99); Mean Platelet Vol. 9.6 fl (6.2-12.0); Platelet Count 129 K/mm3 (150-450); RBC Distribution Width CV 14.9 % (11.6-14.6); RBC Distribution Width SD 50.4 fl (35.1-43.9); Red Blood Count 2.78 M/mm3 (4.2-5.4); White Blood Count 2.2 K/mm3 (4.4-11.0)
[2023-09-01 18:52] LABS: Bedside Glucose 113 mg/dL (74-106)
[2023-09-01 21:00] VITALS: BP 140/52; PULSE 50; RESP 16; TEMP 36.5; O2SAT 96
[2023-09-01] MEDS: Pravastatin 20 MG Tablet PO (21:52)
[2023-09-01] MEDS: Menthol/Lanolin/Calamine/Znox 113 GM Tube 1 APPLIC TOPICAL (21:52)
[2023-09-01] MEDS: Acetaminophen 325 MG Tablet 650 MG PO (21:52)
[2023-09-01] MEDS: BMX LIQUID 180 ML PO (21:54)
[2023-09-01 22:22] LABS: Hematocrit 23.1 % (37-47); Hemoglobin 7.8 g/dL (12.0-15.0); Mean Corp Hgb Conc 33.8 g/dL (32-36); Mean Corpuscular Hgb 31.6 pg (27.0-32.0); Mean Corpuscular Volume 93.5 fL (81-99); Mean Platelet Vol. 9.3 fl (6.2-12.0); Platelet Count 118 K/mm3 (150-450); RBC Distribution Width SD 50.9 fl (35.1-43.9); Red Blood Count 2.47 M/mm3 (4.2-5.4)
[2023-09-01] MEDS: Zolpidem Tartrate 5 MG Tablet PO (23:51)
[2023-09-01] MEDS: HYDROcodone Bitartrate/Apap 5/325 Tablet PO (23:51)
--- NOTE | 2023-09-02 01:00 | NURSING ---
this nurse took over care for this patient at 0100. pt resting in bed watching tv , call light within reach
[2023-09-02 02:36] LABS: Hemoglobin 7.7 g/dL (12.0-15.0); Mean Corp Hgb Conc 33.5 g/dL (32-36); Mean Corpuscular Hgb 31.4 pg (27.0-32.0); Mean Corpuscular Volume 93.9 fL (81-99); Platelet Count 128 K/mm3 (150-450); RBC Distribution Width CV 15.1 % (11.6-14.6); RBC Distribution Width SD 51.2 fl (35.1-43.9); Red Blood Count 2.45 M/mm3 (4.2-5.4); White Blood Count 1.8 K/mm3 (4.4-11.0)
[2023-09-02 03:45] VITALS: BP 142/50; PULSE 68; RESP 16; TEMP 36.6; O2SAT 94
[2023-09-02 05:35] VITALS: BMI 29.9
[2023-09-02] MEDS: Menthol/Lanolin/Calamine/Znox 113 GM Tube 1 APPLIC TOPICAL ×3 (06:26→22:03)
[2023-09-02] MEDS: Nystatin Powder 15gm Bottle 1 APPLIC TOPICAL ×3 (06:26→22:04)
[2023-09-02 07:40] LABS: Absolute Lymphocyte Count 0.72 X10^3/uL (0.83-4.51); Absolute Neutrophil Count 0.6 X10^3/uL (2.0-7.7); Basophil# 0.01 X10^3/uL; Basophil% 0.6 % (0-1); Eosinophil# 0.02 X10^3/uL; Eosinophils% 1.2 % (0-5); Hematocrit 22.9 % (37-47); Hemoglobin 7.6 g/dL (12.0-15.0); Lymphocyte # 0.72 X10^3/ul (0.83-4.51); Lymphocyte % 42.4 % (19-41); Mean Corp Hgb Conc 33.2 g/dL (32-36); Mean Corpuscular Hgb 31.4 pg (27.0-32.0); Mean Corpuscular Volume 94.6 fL (81-99); Mean Platelet Vol. 9.8 fl (6.2-12.0); Monocyte# 0.31 X10^3/uL; Monocyte% 18.2 % (0-10); NRBC Flagged by Analyzer 0 % (0-5); Neutrophil # 0.64 X10^3/uL (2.7-7.7); Neutrophil % 37.6 % (47-70); POSITIVE DIFFERENTIAL YES; Platelet Count 120 K/mm3 (150-450); RBC Distribution Width CV 15.2 % (11.6-14.6); RBC Distribution Width SD 51.9 fl (35.1-43.9); Red Blood Count 2.42 M/mm3 (4.2-5.4); White Blood Count 1.7 K/mm3 (4.4-11.0)
[2023-09-02 07:49] LABS: Differential Indicated SCAN CRITERIA MET
[2023-09-02 08:34] VITALS: BP 134/52; PULSE 60; RESP 18; TEMP 36.6; O2SAT 96
[2023-09-02 08:35] LABS: Anion Gap 7 (5-15); BUN 23 mg/dL (7-18); BUN/Creat Ratio 24.8 RATIO (10-20); Calcium,Total 8.6 mg/dL (8.5-10.1); Chloride 104 mmol/L (98-107); Creatinine, Serum 0.93 mg/dL (0.55-1.02); EST Glomerular Filtration Rate 62 mL/min (>60); Est Glom Filt Rate - Afr Amer 75 mL/min (>60); Estimated Creatinine Clearance 51.79 ml/min; Glucose 132 mg/dL (74-106); Potassium 3.5 mmol/L (3.5-5.1); Sodium Level 140 mmol/L (136-145); Thyroid Stim Hormone (TSH) 0.34 uIU/mL (0.358-3.74)
[2023-09-02] MEDS: Pantoprazole Sodium 20 MG Tablet PO (08:46)
[2023-09-02] MEDS: Anastrozole 1 MG TABLET PO (08:46)
[2023-09-02] MEDS: Cyanocobalamin (B12) 1,000 MCG/ML Vial 1000 MCG IM (08:46)
[2023-09-02] MEDS: Calcium Carb/Vitamin D 1 TABLET Tablet PO (08:47)
[2023-09-02] MEDS: Flu Vacc QS2023-24(65YR UP)/PF 240 MCG/0.7 ML Syringe IM (08:47)
[2023-09-02] MEDS: HYDROcodone Bitartrate/Apap 5/325 Tablet PO ×2 (08:47→22:03)
[2023-09-02] MEDS: BMX LIQUID 180 ML PO (08:49)
--- NOTE | 2023-09-02 09:34 | PCM.PN.HOSP ---
Reason for Visit Reason for Visit: Diagnoses Vitamin B12 deficiency anemia, unspecified (09/01/23) Anemia, unspecified (09/01/23) Essential (primary) hypertension (09/01/23) Atrioventricular block, complete (09/01/23) Unspecified atrial fibrillation (09/01/23) Gastro-esophageal reflux disease without esophagitis (09/01/23) Gastrointestinal hemorrhage, unspecified (09/01/23) Presence of cardiac pacemaker (09/01/23) Subjective Subjective No further bleeding Objective Data Objective Data Vital Signs: Vital Signs Temp Pulse Resp BP Pulse Ox O2 Del Method 36.6 C 60 18 134/52 H 96 Room Air 09/02/23 08:34 09/02/23 08:34 09/02/23 08:34 09/02/23 08:34 09/02/23 08:34 09/02/23 08:34 Oxygen Delivery Method Room Air Weight: 81.7 kg Body Mass Index (BMI) 29.9 Intake & Output: Intake and Output for Last 24 Hours 08/31/23 09/01/23 09/02/23 23:59 23:59 23:59 Output Total 100 / 100 250 / 250 Balance -100 / -100 -250 / -250 Lab / Micro Data 09/02/23 06:50 09/02/23 06:50 Labs: Laboratory Results - last 24 hr 09/01/23 14:05: WBC 2.0 L, RBC 2.83 L, Hgb 8.9 L, Hct 26.8 L, MCV 94.7, MCH 31.4, MCHC 33.2, RDW Std Deviation 51.8 H, RDW Coeff of Jenna 15.2 H, Plt Count 135 L, MPV 9.4, Immature Gran % (Auto) 0.500, Neut % (Auto) 46.0 L, Lymph % (Auto) 37.5, [place] % (Auto) 15.0 H, Eos % (Auto) 0.5, Baso % (Auto) 0.5, Absolute Neuts (auto) 0.9 L, Absolute Lymphs (auto) 0.75 L, Nucleated RBC % 0, Differential Comment SCANNED, Sodium 143, Potassium 3.8, Chloride 105, Carbon Dioxide 31.0, Anion Gap 7, BUN 28 H, Creatinine 1.18 H, Estim Creat Clear Calc 41.91, Est GFR (MDRD) Af Amer 57 L, Est GFR (MDRD) Non-Af 47 L, BUN/Creatinine Ratio 23.7 H, Glucose 145 H, Calcium 9.4 09/01/23 14:18: Blood Type A POSITIVE, Antibody Screen NEGATIVE 09/01/23 17:57: POC Glucose 113 H 09/01/23 18:16: WBC 2.2 L, RBC 2.78 L, Hgb 8.8 L, Hct 26.3 L, MCV 94.6, MCH 31.7, MCHC 33.5, RDW Std Deviation 50.4 H, RDW Coeff of Jenna 14.9 H, Plt Count 129 L, MPV 9.6 09/01/23 22:02: WBC 2.0 L, RBC 2.47 L, Hgb 7.8 L, Hct 23.1 L, MCV 93.5, MCH 31.6, MCHC 33.8, RDW Std Deviation 50.9 H, RDW Coeff of Jenna 15.0 H, Plt Count 118 L, MPV 9.3 09/02/23 01:43: WBC 1.8 L, RBC 2.45 L, Hgb 7.7 L, Hct 23.0 L, MCV 93.9, MCH 31.4, MCHC 33.5, RDW Std Deviation 51.2 H, RDW Coeff of [place]enna 15.1 H, Plt Count 128 L, MPV 10.0 09/02/23 06:50: WBC 1.7 L, RBC 2.42 L, Hgb 7.6 L, Hct 22.9 L, MCV 94.6, MCH 31.4, MCHC 33.2, RDW Std Deviation 51.9 H, RDW Coeff of [place]enna 15.2 H, Plt Count 120 L, MPV 9.8, Immature Gran % (Auto) 0.000, Neut % (Auto) 37.6 L, Lymph % (Auto) 42.4 H, [place] % (Auto) 18.2 H, Eos % (Auto) 1.2, Baso % (Auto) 0.6, Absolute Neuts (auto) 0.6 L, Absolute Lymphs (auto) 0.72 L, Nucleated RBC % 0, Sodium 140, Potassium 3.5, Chloride 104, Carbon Dioxide 29.0, Anion Gap 7, BUN 23 H, Creatinine 0.93, Estim Creat Clear Calc 51.79, Est GFR (MDRD) Af Amer 75, Est GFR (MDRD) Non-Af 62, BUN/Creatinine Ratio 24.8 H, Glucose 132 H, Calcium 8.6, TSH 0.34 L Radiography Diagnostic Testing: Radiology Impression Abdomen/Pelvis CT 09/01/23 16:46 IMPRESSION: 1. Sigmoid diverticulitis without abscess or perforation. 2. Moderate-sized lateral hernia. 3. 3 cm exophytic enhancing mass of the upper pole the right kidney and further characterization with ultrasound or renal mass protocol MRI may be useful. Electronically Signed: Gareth Levy MD at 22:45 EST , Physical Exam Const alert and no apparent distress HEENT head/scalp atraumatic and moist oral mucous membranes Resp normal respiratory effort and no retractions Cardio regular rate, regular rhythm, S1 normal heart sound and S2 normal heart sound GI normal to inspection, nondistended, normoactive bowel sounds, soft to palpation, non-tender and non-distended Extremity normal to inspection and full ROM Neuro Sensorium / Orientation: awake and alert Assessment & Plan Assessment/Plan (1) Acute lower gastrointestinal bleeding: (2) Anemia: (3) B12 deficiency anemia: (4) Atrial fibrillation: (5) GERD (gastroesophageal reflux disease): (6) HTN (hypertension): (7) 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 Acute blood loss anemia down to 7.6 but overall stable from the last 3 blood draws. monitor Diverticulitis noted on CT A/P add pip/tazo Renal mass CT showed 3 cm exophytic mass in upper pole of right kidney check US Chronic conditions: pancytopenia suspected to be secondary to B12 deficiency-Has had low white blood cell count since April, chronic anemia, platelets have been low since check 08/29 but no blood work prior to that--Pt follows with Dr. Spicer on outpt basis, it was felt that she may be pancytopenic due to B12 deficiency and was started on B12 injections Afib and pacemaker-Hold apixaban chronic heart failure preserved ejection fraction -Holding Lasix and spironolactone -Daily weights, I's and O's-Fluid restriction, heart healthy diet-Last echo with EF 65% but indeterminant diastolic function Hx breast cancer-On anastrozole GERD-Continue PPI CKD stage III a-Appears to be at baseline-Avoid nephrotoxic agents-Daily BMPs Hx DVT/PE-Post op in 2016-Holding apixaban DVT ppx: SCDs Charges/Coding Visit Charges Inpatient E&M: 70015 Subs Hosp L2
--- NOTE | 2023-09-02 14:15 | CASEMGMT ---
MCKENNA SOSA Assessment: Face to Face with pt for initial transition planning/care coordination assessment. MCKENNA SOSA introduced self and role at [facility], pt voices understanding and consents to assessment. Pt is A&O x4 and answers all questions appropriately at this time. Pt lying in bed in no distress. Care providers, pharmacy, and demographics verified/updated. Admitting Dx: GIB PCP:More Specialists:Nayan, onc; Giacomoi, pain mgmt Preferred Pharmacy: [facility] Insurance: [employer] [facility], [facility] [[email or web address] Prescription Benefit: yes LNOK: Yannick Lopes, son; Israel Lopes, son Living Arrangements: Pt lives alone in a mobile home with a ramp to enter. Pt reports she is I in ADL's but has her david present for bathing for safety. Pt able to prepare own meals, do laundry and get groceries with her son providing transportation. Transportation: Pt hasn't driven in a couple of years. David or son provide transportation. DME:reachers, cane, rollator HHC/SNF: Pt reports she has had [facility] HHC every time she leaves the hospital and has been to [facility]. Pt states no concerns with going home at time of dc. Pt reports she will have a scope tomorrow. At this time, pt does not feel she needs HHC. She denies need for therapy and it is currently not ordered. Pt states no further concerns/needs. CM to follow. Advised pt to ask CM if any further question/concerns/needs arise, voices understanding. Pt Goal: Home Plan: Home pending course of hospitalization Report given to MCKENNA SOSA.
[2023-09-02 15:04] VITALS: BP 131/60; PULSE 59; RESP 18; TEMP 36.6; O2SAT 96
[2023-09-02] MEDS: 0.9% Normal Saline (250mL Bag) 250 ML 15 ML IV (15:07)
[2023-09-02] MEDS: Bisacodyl 5 MG Tablet 20 MG PO (15:07)
[2023-09-02] MEDS: Piperacil/Tazobactam 3.375 GM in 0.9% Normal Saline (50mL MB+) 50 ML IV ×2 (15:07→22:03)
[2023-09-02] MEDS: 0.9% Saline Lock 10 ML Syringe IV (16:12)
[2023-09-02] MEDS: Ondansetron 4 MG/2 ML Vial IV (16:12)
[2023-09-02] MEDS: Polyethylene Glycol 3350 BOWEL PREP PO (16:12)
--- NOTE | 2023-09-02 17:49 | EX.PCM.CON.G ---
HPI Consult Data Date of Consult: 09/02/23 HPI Narrative HPI Narrative: ALLISON MAHER, is a 77 F with a history of coronary artery disease, A-fib on Eliquis, prior breast cancer, hemorrhoids, pacemaker, GERD who presented to [facility] ED 09/01/23 w/ diarrhea and hematochezia. She has had trouble for her bowels for several years and alternates between constipation and diarrhea but over the past week she has had watery diarrhea 5-7 episodes a day w/ slight abdominal cramping and then today had 2 episodes of bowel movements with significant blood in toilet bowl and some on the floor. In ED vitals with blood pressure 154/72, heart rate 82 and patient 95% on room air. Hemoglobin 8.9 in ED, several days ago was 9.3 and prior that runs between 10 and 12. She was also noted to have a white blood cell count of 1.9 and a platelet count of 71,000. BMP appears to be at baseline. rectal exam by ED physician with brown stool with no blood at this time however given her significant episodes and hemoglobin lower than it was several months ago patient advised to be admitted. She reports she has had normal bowel movements for several weeks until about a week ago when she started having significant amount of diarrhea, 5-8 episodes of watery diarrhea a day with some nausea and abdominal cramping and poor p.o. intake. Also has a canker sore on right side of her tongue which has made it hard with fluids as well. She was originally diagnosedin October 2018 consistent with iron deficiency anemia and anemia of chronic disease. She was on oral iron supplement in the past but unable to tolerate oral iron due to increasing constipation. She had a colonoscopy September 2017 showed hemorrhoids. She was given IV iron since 2018 on an as-needed basis with correction of her anemia. She was scheduled to get IV iron February 2023, with a target ferritin above 100 and iron saturation above 20%. She had a CT scan abdomen pelvis that showed Sigmoid diverticulitis without abscess or perforation and a moderate-sized lateral hernia. [facility] Medical History Anemia Anticoagulant long-term use Asthma Atherosclerotic heart disease of [place] coronary artery without angina pectoris Atrial fibrillation B12 deficiency anemia Bilateral pleural effusion CAD (coronary artery disease) Chemo-induced gastroenteritis Chemotherapy induced nausea and vomiting Chronic anticoagulation Chronic pain Colitis Constipation COPD (chronic obstructive pulmonary disease) Degenerative joint disease of right hip Depression Educational circumstance Encounter for screening for malignant neoplasm of colon ER+ (estrogen receptor positive status) Essential hypertension GERD (gastroesophageal reflux disease) Jody filter in place Heart failure, diastolic, chronic Hemorrhoid History of atrial fibrillation HTN (hypertension) Hx of deep vein thrombophlebitis of lower extremity Hx of hemorrhoids Hyperlipidemia Insomnia Iron deficiency anemia due to chronic blood loss Lumbar spondylosis Obesity Obstructive sleep apnea Osteoarthritis Osteoporosis Osteoporosis Pancytopenia Paroxysmal atrial fibrillation Paroxysmal atrial fibrillation Personal history of pulmonary embolism port placement PORT REMOVAL Positive fecal occult blood test 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 Primary cancer of right female breast Pure hypercholesterolemia PVD (peripheral vascular disease) Rectal prolapse Sepsis Thyroid cancer Home Medications albuterol sulfate 90 mcg/actuation aerosol inhaler 2 puff inhalation Q4H PRN PRN Asthma 06/16/13 [History Last Taken 12/26/21] omeprazole 20 mg capsule,delayed release 20 mg PO DAILY reflux 06/16/13 [History Last Taken 09/01/23] calcium citrate 315 mg calcium-vitamin D3 6.25 mcg (250 unit) tablet 2 tab PO DAILY SUPPLEMENT 10/24/18 [History Last Taken 06/16/22 10:00] zolpidem 12.5 mg tablet,extended release,multiphase 12.5 mg PO QHS PRN PRN Insomnia 03/24/19 [History Last Taken 08/31/23] denosumab 60 mg/mL subcutaneous syringe (Prolia) 60 mg subcut .[id number] bones 11/25/20 [History Last Taken 08/29/23] pravastatin 20 mg tablet 20 mg PO QHS CHOLESTEROL 04/28/21 [History Last Taken 08/31/23] acetaminophen 650 mg tablet,extended release 650 mg PO BID pain 06/17/22 [History Last Taken 08/31/23] hydrocodone-acetaminophen 5-325mg 5mg-325mg 1 tab PO BID PRN Pain 3 days #6 tabs 06/25/22 [Rx Last Taken 08/31/23] apixaban 5 mg tablet (Eliquis) 5 mg PO BID afib #180 tabs 09/23/22 [Rx Last Taken 09/01/23] lisinopril 20 mg tablet 20 mg PO DAILY blood pressure #90 tabs 11/01/22 [Rx Last Taken 09/01/23] anastrozole 1 mg tablet 1 mg PO DAILY breast cancer #90 tabs 03/13/23 [Rx Last Taken Unknown] furosemide 20 mg tablet 20 mg PO DAILY diuretic #90 tabs 05/09/23 [Rx Last Taken 08/25/23] spironolactone 25 mg tablet 25 mg PO DAILY diuretic #90 tabs 05/16/23 [Rx Last Taken 09/01/23] hydrochlorothiazide 25 mg tablet 25 mg PO DAILY diuretic 09/01/23 [History Last Taken 09/01/23] Allergy/AdvReac Type Severity Reaction Status Date / Time niacin Allergy Intermediate I DON'T Verified 09/01/23 13:59 REMEMBER, I CAN'T TAKE IT bee venom protein (honey bee) Allergy Swelling Verified 09/01/23 13:59 Family History Brother Diabetes Heart disease Sister Breast cancer Mother Cancer brain and bone mets Aunt Breast cancer Grandmother Cancer Surgical History History of appendectomy History of cholecystectomy History of incisional hernia repair History of radiofrequency ablation procedure for cardiac arrhythmia (~05/25/22) Hx of atrioventricular node ablation Hx of mastectomy S/P carpal tunnel release S/P cataract extraction S/P hysterectomy S/P lumbar discectomy S/P partial thyroidectomy S/P revision of total knee S/P right breast biopsy S/P total knee replacement Social History household members: none Smoking Status: Never smoker alcohol intake: never substance use type: does not use caffeine: No ROS ROS Narrative General: Denies fever/chills HENT: Denies headache, denies stuffy nose, denies sore throat EYES: Denies changes in vision Resp: Denies cough, denies shortness of breath Cardiac: Denies chest pain GI: Some nausea, diarrhea, blood per rectum, some abdominal cramping : Denies changes in urination Extremity: Denies swelling MSK: Denies weakness Neuro: Denies any numbness/tingling Heme: Bleeding per rectum Skin: Denies rashes Psychiatric: No complaints voiced Physical Exam Const alert and no apparent distress HEENT head/scalp atraumatic and moist oral mucous membranes Resp normal respiratory effort and no retractions Cardio regular rate, regular rhythm, S1 normal heart sound and S2 normal heart sound GI normal to inspection, nondistended, normoactive bowel sounds, soft to palpation, non-tender and non-distended Extremity normal to inspection and full ROM Neuro Sensorium / Orientation: awake and alert Lab / Micro Data 09/02/23 06:50 09/02/23 06:50 Labs: Laboratory Results - last 24 hr 09/01/23 17:57: POC Glucose 113 H 09/01/23 18:16: WBC 2.2 L, RBC 2.78 L, Hgb 8.8 L, Hct 26.3 L, MCV 94.6, MCH 31.7, MCHC 33.5, RDW Std Deviation 50.4 H, RDW Coeff of Jenna 14.9 H, Plt Count 129 L, MPV 9.6 09/01/23 22:02: WBC 2.0 L, RBC 2.47 L, Hgb 7.8 L, Hct 23.1 L, MCV 93.5, MCH 31.6, MCHC 33.8, RDW Std Deviation 50.9 H, RDW Coeff of Jenna 15.0 H, Plt Count 118 L, MPV 9.3 09/02/23 01:43: WBC 1.8 L, RBC 2.45 L, Hgb 7.7 L, Hct 23.0 L, MCV 93.9, MCH 31.4, MCHC 33.5, RDW Std Deviation 51.2 H, RDW Coeff of Jenna 15.1 H, Plt Count 128 L, MPV 10.0 09/02/23 06:50: WBC 1.7 L, RBC 2.42 L, Hgb 7.6 L, Hct 22.9 L, MCV 94.6, MCH 31.4, MCHC 33.2, RDW Std Deviation 51.9 H, RDW Coeff of Jenna 15.2 H, Plt Count 120 L, MPV 9.8, Immature Gran % (Auto) 0.000, Neut % (Auto) 37.6 L, Lymph % (Auto) 42.4 H, [place] % (Auto) 18.2 H, Eos % (Auto) 1.2, Baso % (Auto) 0.6, Absolute Neuts (auto) 0.6 L, Absolute Lymphs (auto) 0.72 L, Nucleated RBC % 0, Differential Comment COMMENT, Sodium 140, Potassium 3.5, Chloride 104, Carbon Dioxide 29.0, Anion Gap 7, BUN 23 H, Creatinine 0.93, Estim Creat Clear Calc 51.79, Est GFR (MDRD) Af Amer 75, Est GFR (MDRD) Non-Af 62, BUN/Creatinine Ratio 24.8 H, Glucose 132 H, Calcium 8.6, TSH 0.34 L Micro: Microbiology 09/02/23 10:00 Stool Enteric Bacteriology - Final 09/02/23 10:00 Stool Clostridioides difficile (PCR) - Final 09/02/23 10:00 Stool Stool Occult Blood (СВЕТЛАНА) - Final Occult Blood Positive Imaging Radiology Impression Abdomen/Pelvis CT 09/01/23 16:46 IMPRESSION: 1. Sigmoid diverticulitis without abscess or perforation. 2. Moderate-sized lateral hernia. 3. 3 cm exophytic enhancing mass of the upper pole the right kidney and further characterization with ultrasound or renal mass protocol MRI may be useful. 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 She also has a history of invasive ductal cancer ER positive (more than 95%), NM positive (21%) and HER-2/meena not amplified. She underwent right breast mastectomy with sentinel lymph node biopsy. She is currently pancytopenic and has GI bleeding in the setting of diverticulitis. GI bleed - high likelihood of ischemic colitis in the setting of Acute mild diverticulitis complicated by pancytopenia and need for anticoagulation. She should undergo an upper or lower endoscopy to look for the etiology of her anemia chronic disease such as gastric antral vascular ectasia, telangiectasia, hiatal hernia with Karan's erosions, peptic ulcer disease. She should also undergo colonoscopy to see if there is any signs of ischemic colitis or if she is having bleeding from diverticular disease, hemorrhoids, stercoral ulcer. She was explained alternatives, risk, benefits include not withstanding bleeding, infection, sepsis, perforation, need for emergent urgent . She will have an ASA of 4. 2 - Charges/Coding Visit Charges Inpatient E&M: 97906 Init Hosp L3
[2023-09-02 21:57] VITALS: BP 126/90; PULSE 63; RESP 16; TEMP 36.6; O2SAT 95
[2023-09-02] MEDS: Pravastatin 20 MG Tablet PO (22:03)
[2023-09-02] MEDS: MELATONIN 3 MG TABLET PO (22:03)
[2023-09-03] VITALS (12 sets, daily range): BP systolic 95–114; BP diastolic 39–71; PULSE 60–63; RESP 16–18; TEMP 36.6–37.4; O2SAT 92–97
[2023-09-03] MEDS: Piperacil/Tazobactam 3.375 GM in 0.9% Normal Saline (50mL MB+) 50 ML IV ×3 (06:07→22:42)
[2023-09-03] MEDS: Menthol/Lanolin/Calamine/Znox 113 GM Tube 1 APPLIC TOPICAL ×3 (06:07→22:40)
[2023-09-03] MEDS: Nystatin Powder 15gm Bottle 1 APPLIC TOPICAL ×3 (06:07→22:41)
[2023-09-03 06:25] LABS: Absolute Lymphocyte Count 0.41 X10^3/uL (0.83-4.51); Absolute Neutrophil Count 1.2 X10^3/uL (2.0-7.7); Basophil# 0.01 X10^3/uL; Basophil% 0.5 % (0-1); Eosinophil# 0.02 X10^3/uL; Hematocrit 24.6 % (37-47); Lymphocyte # 0.41 X10^3/ul (0.83-4.51); Lymphocyte % 21.4 % (19-41); Mean Corp Hgb Conc 32.5 g/dL (32-36); Mean Corpuscular Volume 95.3 fL (81-99); Mean Platelet Vol. 9.4 fl (6.2-12.0); Monocyte# 0.29 X10^3/uL; Monocyte% 15.1 % (0-10); NRBC Flagged by Analyzer 0 % (0-5); Neutrophil # 1.17 X10^3/uL (2.7-7.7); POSITIVE DIFFERENTIAL YES; Platelet Count 133 K/mm3 (150-450); RBC Distribution Width CV 15.6 % (11.6-14.6); RBC Distribution Width SD 53.4 fl (35.1-43.9); Red Blood Count 2.58 M/mm3 (4.2-5.4); White Blood Count 1.9 K/mm3 (4.4-11.0)
--- NOTE | 2023-09-03 06:27 | EKG12_ITS ---
Test Reason : PREOP Blood Pressure : / mmHG Vent. Rate : 064 BPM Atrial Rate : 091 BPM P-R Int : 000 ms QRS Dur : 140 ms QT Int : 488 ms P-R-T Axes : 000 -22 023 degrees QTc Int : 503 ms Ventricular-paced rhythm Abnormal ECG When compared with ECG of 03-AUG-2022 13:47, Electronic ventricular pacemaker has replaced Sinus rhythm Vent. rate has increased BY 22 BPM Confirmed by Woody Ching ([id number]), photograph editor GUERDA GUTIERREZ ([id number]) on 09/04/2023 1:41:44 PM Referred By: FRIEND Confirmed By:Woody Ching
[2023-09-03 06:28] LABS: Differential Indicated SCAN CRITERIA MET
[2023-09-03 06:44] LABS: Anion Gap 7 (5-15); BUN 21 mg/dL (7-18); BUN/Creat Ratio 17.6 RATIO (10-20); Calcium,Total 7.7 mg/dL (8.5-10.1); Chloride 105 mmol/L (98-107); Creatinine, Serum 1.19 mg/dL (0.55-1.02); EST Glomerular Filtration Rate 46 mL/min (>60); Est Glom Filt Rate - Afr Amer 56 mL/min (>60); Estimated Creatinine Clearance 40.52 ml/min; Glucose 154 mg/dL (74-106); Potassium 3.6 mmol/L (3.5-5.1); Sodium Level 139 mmol/L (136-145)
[2023-09-03 06:47] LABS: International Normalized Ratio 1.1; Prothrombin Time (Protime)PT. 14.3 SECONDS (11.7-14.9)
[2023-09-03 07:04] LABS: Differential Comment SCANNED
--- NOTE | 2023-09-03 08:03 | PCM.PN.HOSP ---
Reason for Visit Reason for Visit: Diagnoses Vitamin B12 deficiency anemia, unspecified (09/01/23) Anemia, unspecified (09/01/23) Essential (primary) hypertension (09/01/23) Atrioventricular block, complete (09/01/23) Unspecified atrial fibrillation (09/01/23) Gastro-esophageal reflux disease without esophagitis (09/01/23) Gastrointestinal hemorrhage, unspecified (09/01/23) Presence of cardiac pacemaker (09/01/23) Subjective Subjective No further bleeding. Concerned about her B12 injections being resumed. Objective Data Objective Data Vital Signs: Vital Signs Temp Pulse Resp BP Pulse Ox O2 Del Method 37.0 C 62 16 114/50 L 94 Room Air 09/03/23 03:15 09/03/23 03:15 09/03/23 03:15 09/03/23 03:15 09/03/23 03:15 09/03/23 04:00 Oxygen Delivery Method Room Air Weight: 81.9 kg Body Mass Index (BMI) 30.0 Intake & Output: Intake and Output for Last 24 Hours 09/01/23 09/02/23 09/03/23 23:59 23:59 23:59 Intake Total 1051.25 / 1051.25 50 / 50 Output Total 100 / 100 650 / 650 400 / 400 Balance -100 / -100 401.25 / 401.25 -350 / -350 Lab / Micro Data 09/03/23 06:05 09/03/23 06:05 Labs: Laboratory Results - last 24 hr 09/02/23 06:50: Differential Comment COMMENT, Sodium 140, Potassium 3.5, Chloride 104, Carbon Dioxide 29.0, Anion Gap 7, BUN 23 H, Creatinine 0.93, Estim Creat Clear Calc 51.79, Est GFR (MDRD) Af Amer 75, Est GFR (MDRD) Non-Af 62, BUN/Creatinine Ratio 24.8 H, Glucose 132 H, Calcium 8.6, TSH 0.34 L 09/03/23 06:05: WBC 1.9 L, RBC 2.58 L, Hgb 8.0 L, Hct 24.6 L, MCV 95.3, MCH 31.0, MCHC 32.5, RDW Std Deviation 53.4 H, RDW Coeff of Jenna 15.6 H, Plt Count 133 L, MPV 9.4, Immature Gran % (Auto) 1.000 H, Neut % (Auto) 61.0, Lymph % (Auto) 21.4, [place] % (Auto) 15.1 H, Eos % (Auto) 1.0, Baso % (Auto) 0.5, Absolute Neuts (auto) 1.2 L, Absolute Lymphs (auto) 0.41 L, Nucleated RBC % 0, Differential Comment SCANNED, Diff Path Review November foll, PT 14.3, INR 1.1, Sodium 139, Potassium 3.6, Chloride 105, Carbon Dioxide 27.0, Anion Gap 7, BUN 21 H, Creatinine 1.19 H, Estim Creat Clear Calc 40.52, Est GFR (MDRD) Af Amer 56 L, Est GFR (MDRD) Non-Af 46 L, BUN/Creatinine Ratio 17.6, Glucose 154 H, Calcium 7.7 L Micro: Microbiology 09/02/23 10:00 Stool Enteric Bacteriology - Final 09/02/23 10:00 Stool Clostridioides difficile (PCR) - Final 09/02/23 10:00 Stool Stool Occult Blood (СВЕТЛАНА) - Final Occult Blood Positive Physical Exam Const alert and no apparent distress Resp normal respiratory effort, no retractions, no use of accessory muscles and clear to auscultation bilaterally Cardio regular rate, regular rhythm, S1 normal heart sound and S2 normal heart sound GI normal to inspection, nondistended, normoactive bowel sounds, soft to palpation, non-tender and non-distended Assessment & Plan Assessment/Plan (1) Acute lower gastrointestinal bleeding: (2) Anemia: PLAN: Plan GI bleed 2 episodes of BRBPR prior to ED GI consult suspect due to diverticulosis complicated by apixaban. Acute blood loss anemia down to 8 but overall stable from the last several blood draws. monitor Diverticulitis noted on CT A/P add pip/tazo Renal mass CT showed 3 cm exophytic mass in upper pole of right kidney Ultrasound shows a 3.5 x 3.5 x 4.1 cm solid mass in the medial portion of the midportion of the right kidney anteriorly. DW Dr. Spicer, informed him of the ultrasound findings. He recommends that she follow-up after discharge and then they can discuss further what additional measures to take. Chronic conditions: pancytopenia suspected to be secondary to B12 deficiency-Has had low white blood cell count since April, chronic anemia, platelets have been low since check 08/29 but no blood work prior to that--Pt follows with Dr. Spicer on outpt basis, it was felt that she may be pancytopenic due to B12 deficiency and was started on B12 injections Afib and pacemaker-Hold apixaban chronic heart failure preserved ejection fraction -Holding Lasix and spironolactone -Daily weights, I's and O's-Fluid restriction, heart healthy diet-Last echo with EF 65% but indeterminant diastolic function Hx breast cancer-On anastrozole GERD-Continue PPI CKD stage III a-Appears to be at baseline-Avoid nephrotoxic agents-Daily BMPs Hx DVT/PE-Post op in 2016-Holding apixaban Anemia: Patient is B12 deficient. Did discuss with Dr. Spicer who recommends completing her B12 injections for today and tomorrow and then to follow-up in their office moving forward. He stated that she should be receiving 1000 mcg today and tomorrow. DVT ppx: SCDs Charges/Coding Visit Charges Inpatient E&M: 71817 Subs Hosp L2
[2023-09-03] MEDS: 0.9% Saline Lock 10 ML Syringe IV ×2 (09:25→18:27)
[2023-09-03] MEDS: Cyanocobalamin (B12) 1,000 MCG/ML Vial 1000 MCG IM (13:25)
[2023-09-03 14:26] LABS: Pathologist Review Reviewed
--- NOTE | 2023-09-03 14:53 | US_ITS ---
STUDY: RENAL ULTRASOUND - COMPLETE REASON FOR EXAM: Female, 77 years old. Right kidney mass on CT TECHNIQUE: Ultrasound evaluation of the kidneys was performed with real-time and static fernandes-scale imaging. COMPARISON: Comparison is made with prior CT scan the abdomen and pelvis dated September 01, 2023 and prior sonogram dated July 31, 2021. FINDINGS: RIGHT KIDNEY: Normal location of the right kidney, which is normal in size. The right kidney measures 10.3 cm x 4.9 cm x 4 cm. There is a normal cortex of the right kidney. The renal cortex measures 1.3 cm. There is a 3.5 cm x 3.5 cm x 4.1 cm hypoechoic solid mass in the medial midportion of the right kidney. This corresponds with the CT findings. A neoplastic process should be ruled out. There are no right renal calculi. There is no right hydronephrosis. DISTAL RIGHT URETER: There is non-visualization of the distal right ureter. There is no demonstrated right ureterovesical junction calculus. There is no demonstrated right ureteral jet. LEFT KIDNEY: Normal location of the left kidney, which is normal in size. The left kidney measures 10 cm x 5 cm x 4.3 cm. There is a normal cortex of the left kidney. The renal cortex measures 1.2 cm. There is a 1.4 cm x 1.6 cm x 1.2 cm left renal cyst. There are no left renal calculi. There is no left hydronephrosis. DISTAL LEFT URETER: There is non-visualization of the distal left ureter. There is no demonstrated left ureterovesical junction calculus. There is no demonstrated left ureteral jet. BLADDER: The distended urinary bladder has a volume of 127 ml. There is a normal wall thickness of the distended urinary bladder. There is no demonstrated mass within the urinary bladder. There are no demonstrated bladder calculi. US/Kidney and Bladder IMPRESSION: 3.5 cm x 3.5 cm x 4.1 cm solid mass in the medial midportion of the right kidney anteriorly. A neoplastic process should BE ruled out. 1.4 cm x 1.6 cm or 1.2 cm cyst in the left kidney Electronically Signed: Yared Chan MD at 10:36 EST ,
[2023-09-03] MEDS: 0.9% Normal Saline (1000mL) 1,000 ML 15 ML IV (15:50)
--- NOTE | 2023-09-03 16:35 | COLBX_PTH ---
PATHOLOGY RESULTS PATIENT: ALLISON MAHER LOC: [facility] U#:[id number] AGE/SX: 77/F ROOM: [facility] RE09/01/[address]: Dr. Aníbal Driver DO : 1945 BED: 1 DIS: 09/04/2023 SPEC #: [id number] RECD: 09/04/23 08:29 STATUS: ZEV PHIPPSAna #: [id number] KEAGAN: 09/03/23 16:[address]: Ryan Ang DEPT: SURGICAL PATHOLOGY RECD BY: Noemi Brandt ENTERED: 09/04/23 08:57 SP TYPE: COLON BX OTHR DR: DO Dr. Jessica Lowe DO Dr. Paige Pierce, MD Tissues: Transverse colon Cecum, NOS COLON BIOPSY Procedures: Surgery Specimen Level IV Comments: @ Ordering doctor for SUIV edited from to @ by ELBERT at 09/04/23 1333 @ Submitting doctor edited from to @ by SUMMEROD at 09/04/23 1333 HEADER OPERATION: Colonoscopy with biopsy and clip, EGD with hemostasis PRE-OP DIAGNOSIS: GI bleed TISSUE SUBMITTED: A - Transverse colon polyp biopsy, B - Cecum polyp biopsy, C - Splenic flexure biopsy MICROSCOPIC DIAGNOSIS A. Transverse colon polyp, biopsy: Fragments of hyperplastic polyp. Tubular adenoma. B. Cecum polyp, biopsy: Tubular adenoma. C. Splenic flexure, biopsy: Tubular adenoma. YADIRA:alexis 09/05/2023 MICROSCOPIC DESCRIPTION Slides are reviewed. GROSS DESCRIPTION A - Received in fixative is one container labeled with the patient's name and designated transverse colon polyp biopsy. The specimen consists of multiple irregular fragments of light callejas soft tissue that in aggregate measure 1.5 x 1.0 x 0.3 cm. The specimen is totally submitted in one cassette. B - Received in fixative is one container labeled with the patient's name and designated cecum polyp biopsy. The specimen consists of multiple irregular fragments of light callejas soft tissue that in aggregate measure 1.0 x 0.3 x 0.1 cm. The specimen is totally submitted in one cassette. C - Received in fixative is one container labeled with the patient's name and designated splenic flexure biopsy. The specimen consists of one irregular fragment of light callejas soft tissue that measures 0.3 x 0.3 x 0.1 cm. The specimen is totally submitted in one cassette. / YADIRA:alexis 09/04/2023 TC:1 CPT: 86561 x3
--- NOTE | 2023-09-03 17:28 | OP.EGD_ITS ---
Patient Name: Phuong Lopes Procedure Date: 09/03/2023 4:33 PM Date of : 1945 Age: 77 Procedure: Upper GI endoscopy Indications: Iron deficiency anemia, Recent gastrointestinal bleeding Providers: Ryan Ang DO Medicines: Monitored Anesthesia Care Patient Profile: This is a 77 year old female. Refer to note in patient chart for documentation of history and physical. Patient has symptoms of acute epigastric abdominal pain and acute dyspepsia. Complications: No immediate complications. Procedure: Pre-Anesthesia Assessment: - Prior to the procedure, a History and Physical was performed, and patient medications and allergies were reviewed. The patient is competent. The risks and benefits of the procedure and the sedation options and risks were discussed with the patient. All questions were answered and informed consent was obtained. Patient identification and proposed procedure were verified by the physician in the pre-procedure area. Mental Status Examination: alert and oriented. Airway Examination: normal oropharyngeal airway and neck mobility. Respiratory Examination: clear to auscultation. CV Examination: normal. Prophylactic Antibiotics: The patient does not require prophylactic antibiotics. Prior Anticoagulants: The patient has taken no anticoagulant or antiplatelet agents. ASA Grade Assessment: III - A patient with severe systemic disease. After reviewing the risks and benefits, the patient was deemed in satisfactory condition to undergo the procedure. The anesthesia plan was to use monitored anesthesia care (MAC). Immediately prior to administration of medications, the patient was re-assessed for adequacy to receive sedatives. The heart rate, respiratory rate, oxygen saturations, blood pressure, adequacy of pulmonary ventilation, and response to care were monitored throughout the procedure. The physical status of the patient was re-assessed after the procedure. After obtaining informed consent, the endoscope was passed under direct vision. Throughout the procedure, the patient's blood pressure, pulse, and oxygen saturations were monitored continuously. The colonoscope was introduced through the mouth, and advanced to the second part of duodenum. The upper GI endoscopy was accomplished without difficulty. The patient tolerated the procedure well. Scope In: 4:46:53 PM Scope Out: 4:51:40 PM Total Procedure Duration Time 0 hours 4 minutes 47 seconds Findings: The examined esophagus was normal. A large hiatal hernia was present. One non-bleeding linear gastric ulcer with pigmented material was found in the gastric body. The lesion was 6 mm in largest dimension. Coagulation for hemostasis using heater probe was successful. No gross lesions were noted in the second portion of the duodenum. A non-bleeding diverticulum was found in the second portion of the duodenum. Impression: - Normal esophagus. - Large hiatal hernia. - Non-bleeding gastric ulcer with pigmented material. Treated with a heater probe. - No gross lesions in the second portion of the duodenum. - Non-bleeding duodenal diverticulum. - No specimens collected. Recommendation: - [facility]. - Advance diet as tolerated. - Continue present medications. Procedure Code(s): --- Professional --- 72449, Esophagogastroduodenoscopy, flexible, transoral; with control of bleeding, any method CPT copyright 2021 [employer]. All rights reserved. The codes documented in this report are preliminary and upon occ ther review may be revised to meet current compliance requirements. Ryan Ang DO 09/03/2023 5:28:33 PM This report has been signed electronically. Number of Addenda: 0 Note Initiated On: 09/03/2023 4:33 PM
--- NOTE | 2023-09-03 17:29 | OP.CCLET_ITS ---
09/03/2023 Jessica Aguero [address] [place] [address] Re : Upper GI endoscopy procedure for Phuong Lopes Dear Dr. Aguero This procedure was performed on Sunday, September 03, 2023. My impressions and recommendations are as follows: Impressions : - Normal esophagus. - Large hiatal hernia. - Non-bleeding gastric ulcer with pigmented material. Treated with a heater probe. - No gross lesions in the second portion of the duodenum. - Non-bleeding duodenal diverticulum. - No specimens collected. Recommendations : - [facility]. - Advance diet as tolerated. - Continue present medications. My findings are described in the full procedure note, which is enclosed. If I can be of further assistance, please feel free to contact me at . Sincerely, Ryan Ang, 09/03/2023 5:28:33 PM This report has been signed electronically.
--- NOTE | 2023-09-03 17:33 | OP.COLON_ITS ---
Patient Name: Phuong Lopes Procedure Date: 09/03/2023 4:52 PM Date of : 1945 Age: 77 Procedure: Colonoscopy Indications: Hematochezia Providers: Ryan Ang DO Medicines: Monitored Anesthesia Care Patient Profile: This is a 77 year old female. Refer to note in patient chart for documentation of history and physical. Patient has symptoms of acute epigastric abdominal pain and acute dyspepsia. Last Colonoscopy: date unknown. Unable to locate last colonoscopy report. Complications: No immediate complications. Procedure: Pre-Anesthesia Assessment: - Prior to the procedure, a History and Physical was performed, and patient medications and allergies were reviewed. The patient is competent. The risks and benefits of the procedure and the sedation options and risks were discussed with the patient. All questions were answered and informed consent was obtained. Patient identification and proposed procedure were verified by the physician in the pre-procedure area. Mental Status Examination: alert and oriented. Airway Examination: normal oropharyngeal airway and neck mobility. Respiratory Examination: clear to auscultation. CV Examination: normal. Prophylactic Antibiotics: The patient does not require prophylactic antibiotics. Prior Anticoagulants: The patient has taken no anticoagulant or antiplatelet agents. ASA Grade Assessment: III - A patient with severe systemic disease. After reviewing the risks and benefits, the patient was deemed in satisfactory condition to undergo the procedure. The anesthesia plan was to use monitored anesthesia care (MAC). Immediately prior to administration of medications, the patient was re-assessed for adequacy to receive sedatives. The heart rate, respiratory rate, oxygen saturations, blood pressure, adequacy of pulmonary ventilation, and response to care were monitored throughout the procedure. The physical status of the patient was re-assessed after the procedure. After I obtained informed consent, the scope was passed under direct vision. Throughout the procedure, the patient's blood pressure, pulse, and oxygen saturations were monitored continuously. The colonoscope was introduced through the anus and advanced to the cecum, identified by appendiceal orifice and ileocecal valve. The colonoscopy was performed without difficulty. The patient tolerated the procedure well. The quality of the bowel preparation was fair. The ileocecal valve, appendiceal orifice, and rectum were photographed. Scope In: 4:56:02 PM Scope Withdrawal Time 0 hours 6 minutes 8 seconds Scope Out: 5:20:52 PM Total Procedure Duration Time 0 hours 24 minutes 50 seconds Findings: Hemorrhoids were found on perianal exam. External and internal hemorrhoids were found during retroflexion. The hemorrhoids were Grade II (internal hemorrhoids that prolapse but reduce spontaneously). Multiple small and large-mouthed diverticula were found in the recto-sigmoid colon, sigmoid colon, descending colon and splenic flexure. Segmental moderate inflammation characterized by erosions, erythema and friability was found in the cecum. Biopsies were taken with a cold forceps for histology. Verification of patient identification for the specimen was done. Estimated blood loss was minimal. Three medium-sized patchy angiodysplastic lesions with bleeding were found in the descending colon. Coagulation for hemostasis using heater probe was successful. Estimated blood loss was minimal. Four sessile polyps were found in the transverse colon and cecum. The polyps were 1 to 2 mm in size. These polyps were removed with a hot snare. Resection and retrieval were complete. Verification of patient identification for the specimen was done. Estimated blood loss was minimal. To close a defect after polypectomy, one hemostatic clip was successfully placed. 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 There was no bleeding at the end of the procedure. Impression: - Preparation of the colon was fair. - Hemorrhoids found on perianal exam. - External and internal hemorrhoids. - Diverticulosis in the recto-sigmoid colon, in the sigmoid colon, in the descending colon and at the splenic flexure. - Segmental moderate inflammation was found in the cecum secondary to colitis. Biopsied. - Three bleeding colonic angiodysplastic lesions. Treated with a heater probe. - Four 1 to 2 mm polyps in the transverse colon and in the cecum, removed with a hot snare. Resected and retrieved. Recommendation: - Repeat colonoscopy in 1 year for surveillance. - Continue present medications. Procedure Code(s): --- Professional --- 36217, 59, Colonoscopy, flexible; with control of bleeding, any method 92818, Colonoscopy, flexible; with removal of tumor(s), polyp(s), or other lesion(s) by snare technique 88438, 59, Colonoscopy, flexible; with biopsy, single or multiple CPT copyright 2021 [employer]. All rights reserved. The codes documented in this report are preliminary and upon project buyer review may be revised to meet current compliance requirements. Ryan Ang DO 09/03/2023 5:32:49 PM This report has been signed electronically. Number of Addenda: 0 Note Initiated On: 09/03/2023 4:52 PM
--- NOTE | 2023-09-03 17:33 | OP.CCLET_ITS ---
09/03/2023 Jessica Aguero [address] [place] [address] Re : Colonoscopy procedure for Phuong Lopes Dear Dr. Ageuro This procedure was performed on Sunday, September 03, 2023. My impressions and recommendations are as follows: Impressions : - Preparation of the colon was fair. - Hemorrhoids found on perianal exam. - External and internal hemorrhoids. - Diverticulosis in the recto-sigmoid colon, in the sigmoid colon, in the descending colon and at the splenic flexure. - Segmental moderate inflammation was found in the cecum secondary to colitis. Biopsied. - Three bleeding colonic angiodysplastic lesions. Treated with a heater probe. - Four 1 to 2 mm polyps in the transverse colon and in the cecum, removed with a hot snare. Resected and retrieved. Recommendations : - Repeat colonoscopy in 1 year for surveillance. - Continue present medications. My findings are described in the full procedure note, which is enclosed. If I can be of further assistance, please feel free to contact me at . Sincerely, Ryan Ang, 09/03/2023 5:32:49 PM This report has been signed electronically.
[2023-09-03] MEDS: Pantoprazole Sodium 20 MG Tablet PO (18:27)
[2023-09-03] MEDS: Calcium Carb/Vitamin D 1 TABLET Tablet PO (18:30)
[2023-09-03] MEDS: Anastrozole 1 MG TABLET PO (18:30)
[2023-09-03] MEDS: Pravastatin 20 MG Tablet PO (22:42)
[2023-09-03] MEDS: MELATONIN 3 MG TABLET PO (22:48)
[2023-09-03] MEDS: HYDROcodone Bitartrate/Apap 5/325 Tablet PO (22:49)
[2023-09-04 03:50] VITALS: BMI 29.7
[2023-09-04 04:39] VITALS: BP 119/54; PULSE 61; RESP 16; TEMP 37.1; O2SAT 97
[2023-09-04] MEDS: Piperacil/Tazobactam 3.375 GM in 0.9% Normal Saline (50mL MB+) 50 ML IV ×2 (05:59→13:57)
[2023-09-04] MEDS: Nystatin Powder 15gm Bottle 1 APPLIC TOPICAL ×2 (06:01→11:51)
[2023-09-04] MEDS: Menthol/Lanolin/Calamine/Znox 113 GM Tube 1 APPLIC TOPICAL ×2 (06:01→11:52)
[2023-09-04 07:54] LABS: Absolute Lymphocyte Count 0.74 X10^3/uL (0.83-4.51); Absolute Neutrophil Count 1.1 X10^3/uL (2.0-7.7); Basophil# 0.01 X10^3/uL; Basophil% 0.4 % (0-1); Eosinophil# 0.05 X10^3/uL; Eosinophils% 2.2 % (0-5); Hematocrit 22.8 % (37-47); Hemoglobin 7.5 g/dL (12.0-15.0); Lymphocyte # 0.74 X10^3/ul (0.83-4.51); Lymphocyte % 33.2 % (19-41); Mean Corp Hgb Conc 32.9 g/dL (32-36); Mean Corpuscular Hgb 31.5 pg (27.0-32.0); Mean Corpuscular Volume 95.8 fL (81-99); Mean Platelet Vol. 10.1 fl (6.2-12.0); Monocyte# 0.35 X10^3/uL; Monocyte% 15.7 % (0-10); NRBC Flagged by Analyzer 0 % (0-5); Neutrophil # 1.07 X10^3/uL (2.7-7.7); Neutrophil % 48.1 % (47-70); Platelet Count 117 K/mm3 (150-450); RBC Distribution Width CV 15.9 % (11.6-14.6); RBC Distribution Width SD 53.9 fl (35.1-43.9); Red Blood Count 2.38 M/mm3 (4.2-5.4); White Blood Count 2.2 K/mm3 (4.4-11.0)
[2023-09-04 07:56] VITALS: PULSE 65
[2023-09-04 08:20] LABS: Anion Gap 8 (5-15); BUN 27 mg/dL (7-18); BUN/Creat Ratio 17.2 RATIO (10-20); Calcium,Total 7.4 mg/dL (8.5-10.1); Chloride 105 mmol/L (98-107); Creatinine, Serum 1.57 mg/dL (0.55-1.02); EST Glomerular Filtration Rate 34 mL/min (>60); Est Glom Filt Rate - Afr Amer 41 mL/min (>60); Estimated Creatinine Clearance 30.59 ml/min; Glucose 133 mg/dL (74-106); Potassium 3.7 mmol/L (3.5-5.1); Sodium Level 139 mmol/L (136-145)
--- NOTE | 2023-09-04 08:50 | PN.HOSP_ITS ---
Reason for Visit Reason for Visit: Diagnoses Vitamin B12 deficiency anemia, unspecified (09/01/23) Anemia, unspecified (09/01/23) Essential (primary) hypertension (09/01/23) Atrioventricular block, complete (09/01/23) Unspecified atrial fibrillation (09/01/23) Gastro-esophageal reflux disease without esophagitis (09/01/23) Gastrointestinal hemorrhage, unspecified (09/01/23) Presence of cardiac pacemaker (09/01/23) Subjective Subjective No events. Feels week, but decline outpt therapy. Objective Data Objective Data Vital Signs: Vital Signs Temp Pulse Resp BP Pulse Ox O2 Del Method O2 Flow Rate 37.1 C 65 16 119/54 L 97 Room Air 2 09/04/23 04:39 09/04/23 07:56 09/04/23 04:39 09/04/23 04:39 09/04/23 04:39 09/04/23 04:39 09/03/23 23:26 Oxygen Flow Rate (L/min) 2 Oxygen Delivery Method Room Air Weight: 81.2 kg Body Mass Index (BMI) 29.7 Intake & Output: Intake and Output for Last 24 Hours 09/02/23 09/03/23 09/04/23 23:59 23:59 23:59 Intake Total 1051.25 / 1051.25 350.00 / 350.00 450 / 450 Output Total 650 / 650 400 / 400 100 / 100 Balance 401.25 / 401.25 -50.00 / -50.00 350 / 350 Lab / Micro Data 09/04/23 06:50 09/04/23 06:50 Labs: Laboratory Results - last 24 hr 09/03/23 06:05: Diff Path Review Reviewed 09/04/23 06:50: WBC 2.2 L, RBC 2.38 L, Hgb 7.5 L, Hct 22.8 L, MCV 95.8, MCH 31.5, MCHC 32.9, RDW Std Deviation 53.9 H, RDW Coeff of Jenna 15.9 H, Plt Count 117 L, MPV 10.1, Immature Gran % (Auto) 0.400, Neut % (Auto) 48.1, Lymph % ( Auto) 33.2, [place] % (Auto) 15.7 H, Eos % (Auto) 2.2, Baso % (Auto) 0.4, Absolute Neuts (auto) 1.1 L, Absolute Lymphs (auto) 0.74 L, Nucleated RBC % 0, Sodium 139, Potassium 3.7, Chloride 105, Carbon Dioxide 26.0, Anion Gap 8, BUN 27 H, Creatinine 1.57 H, Estim Creat Clear Calc 30.59, Est GFR (MDRD) Af Amer 41 L, Est GFR (MDRD) Non-Af 34 L, BUN/Creatinine Ratio 17.2, Glucose 133 H, Calcium 7.4 L Micro: Microbiology 09/02/23 10:00 Stool Enteric Bacteriology - Final 09/02/23 10:00 Stool Clostridioides difficile (PCR) - Final 09/02/23 10:00 Stool Stool Occult Blood (СВЕТЛАНА) - Final Occult Blood Positive Radiography Diagnostic Testing: Radiology Impression Renal Ultrasound 09/03/23 14:53 IMPRESSION: 3.5 cm x 3.5 cm x 4.1 cm solid mass in the medial midportion of the right kidney anteriorly. A neoplastic process should BE ruled out. 1.4 cm x 1.6 cm or 1.2 cm cyst in the left kidney Electronically Signed: Yared Chan MD at 10:36 EST , Physical Exam Const alert and no apparent distress Assessment & Plan Assessment/Plan (1) Acute lower gastrointestinal bleeding: (2) Anemia: PLAN: Plan GI bleed * 2 episodes of BRBPR prior to ED * EGD showed large hiatal hernia, nonbleeding gastric ulcer with pigmented material. This is treated with heater probe. Nonbleeding duodenal diverticulum. * Colonoscopy showed hemorrhoids and the perianal exam, external and internal hemorrhoids, diverticulosis, segmental moderate inflammation found in the cecum secondary to colitis which was biopsied. 3 bleeding colonic angiodysplastic lesions treated with heater probe. Four 1 to 2 mm polyps in the transverse colon and in the cecum. Removed with hot snare. Acute blood loss anemia * down to 8 but overall stable from the last several blood draws. * monitor Diverticulitis/Colitis * noted on CT A/P * Colonoscopy showed cecal colitis. Infectious versus ischemic. * Will continue with Augmentin upon discharge. Renal mass * CT showed 3 cm exophytic mass in upper pole of right kidney * Ultrasound shows a 3.5 x 3.5 x 4.1 cm solid mass in the medial portion of the midportion of the right kidney anteriorly. * DW Dr. Spicer, informed him of the ultrasound findings. He recommends that she follow-up after discharge and then they can discuss further what additional measures to take. * needed to be done. I told herPatient has questions about what lab test would be I am not aware that she would need any additional lab test but when she follows up with oncology and they can determine what that may entail. Also mention the possibility of her possibly requiring a biopsy. Chronic conditions: * pancytopenia suspected to be secondary to B12 deficiency-Has had low white blood cell count since April, chronic anemia, platelets have been low since check 08/29 but no blood work prior to that--Pt follows with Dr. Spicer on outpt basis, it was felt that she may be pancytopenic due to B12 deficiency and was started on B12 injections * Afib and pacemaker-Hold apixaban for 96 hours * chronic heart failure preserved ejection fraction -Holding Lasix and spironolactone -Daily weights, I's and O's-Fluid restriction, heart healthy diet-Last echo with EF 65% but indeterminant diastolic function * Hx breast cancer-On anastrozole * GERD-Continue PPI * CKD stage III a-Appears to be at baseline-Avoid nephrotoxic agents-Daily BMPs * Hx DVT/PE-Post op in 2016-Holding apixaban * Anemia: Patient is B12 deficient. Did discuss with Dr. Spicer who recommends completing her B12 injections for today and tomorrow and then to follow-up in their office moving forward. He stated that she should be receiving 1000 mcg today and tomorrow. DVT ppx: SCDs
[2023-09-04] MEDS: Pantoprazole Sodium 20 MG Tablet PO ×2 (09:51→09:52)
[2023-09-04] MEDS: Cyanocobalamin (B12) 1,000 MCG/ML Vial 1000 MCG IM (09:52)
[2023-09-04] MEDS: Acetaminophen 325 MG Tablet 650 MG PO (09:52)
[2023-09-04] MEDS: BMX LIQUID 180 ML PO (09:53)
[2023-09-04 10:30] VITALS: BP 119/50; PULSE 65; RESP 18; TEMP 36.2; O2SAT 98
[2023-09-04 11:00] VITALS: O2SAT 97
--- NOTE | 2023-09-04 11:11 | CASEMGMT ---
Discharge Planning A list of HH providers including quality and resource use data and consistent with the patient's preferred geographic region, medical needs, and insurance network was created in [facility] Guide.? This list was provided to the RN IAN. Anastasia Soriano, Discharge Planning Asst.
[2023-09-04 11:45] VITALS: O2SAT 95
[2023-09-04] MEDS: Anastrozole 1 MG TABLET PO (11:51)
--- NOTE | 2023-09-04 12:12 | CASEMGMT ---
Addendum entered by Nubia Kimball 09/04/23 13:35: MCKENNA SOSA updated patient that patient has order for discharge today. Patient frustrated that no one told her that she could discharge today and states she doesn't have anyone to provide transportation for her. MCKENNA SOSA asked who all she could ask and patient states everyone is obligated and knows they cannot help her. MCKENNA SOSA inquired if she could use the hospital van and she states she cannot get into van. RN IAN encouraged patient ask family or friends to see if they could help, patient frustrated and states she knows no one can help her. RN IAN offered to call family, patient declined. Patient states she knows no one can help her but she will make some calls. Addendum entered by Nubia Kimball 09/04/23 13:05: MCKENNA SOSA received call back from [facility] and they are able to accept patient with planned start of care for tomorrow. MCKENNA SOSA updated patient, patient had no further questions or concerns. Original Note: MCKENNA SOSA in to discuss needs at discharge. Therapy recommending HHC at discharge. 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 HHC list provided to patient and prefers [facility]. MCKENNA SOSA called and made referral to [facility], awaiting acceptance.
--- NOTE | 2023-09-04 13:11 | PCM.DC.SUM ---
Providers Date of Admission: 09/01/23 Primary Care Physician: Dr. Jessica Aguero, DO Consultations 09/01/23 16:46 Consult: Gastroenterology Routine Consulting Provider: [facility] Reason for Consult: concern for lower GIB EMERGENT Consult: No MD Notified: Yes Date Notified: 09/01/23 Time Notified: 17:02 Method of Notification: Text Reason For Visit: GIB Diagnosis Discharge Diagnosis (1) Acute lower gastrointestinal bleeding: Status: Acute Code(s): K92.2 - Gastrointestinal hemorrhage, unspecified (2) Anemia: Status: Acute Code(s): D64.9 - Anemia, unspecified Plan GI bleed 2 episodes of BRBPR prior to ED EGD showed large hiatal hernia, nonbleeding gastric ulcer with pigmented material. This is treated with heater probe. Nonbleeding duodenal diverticulum. Colonoscopy showed hemorrhoids and the perianal exam, external and internal hemorrhoids, diverticulosis, segmental moderate inflammation found in the cecum secondary to colitis which was biopsied. 3 bleeding colonic angiodysplastic lesions treated with heater probe. Four 1 to 2 mm polyps in the transverse colon and in the cecum. Removed with hot snare. Acute blood loss anemia down to 8 but overall stable from the last several blood draws. monitor Diverticulitis/Colitis noted on CT A/P Colonoscopy showed cecal colitis. Infectious versus ischemic. Will continue with Augmentin upon discharge. Renal mass CT showed 3 cm exophytic mass in upper pole of right kidney Ultrasound shows a 3.5 x 3.5 x 4.1 cm solid mass in the medial portion of the midportion of the right kidney anteriorly. DW Dr. Spicer, informed him of the ultrasound findings. He recommends that she follow-up after discharge and then they can discuss further what additional measures to take. needed to be done. I told herPatient has questions about what lab test would be I am not aware that she would need any additional lab test but when she follows up with oncology and they can determine what that may entail. Also mention the possibility of her possibly requiring a biopsy. Chronic conditions: pancytopenia suspected to be secondary to B12 deficiency-Has had low white blood cell count since April, chronic anemia, platelets have been low since check 08/29 but no blood work prior to that--Pt follows with Dr. Spicer on outpt basis, it was felt that she may be pancytopenic due to B12 deficiency and was started on B12 injections Afib and pacemaker-Hold apixaban for 96 hours chronic heart failure preserved ejection fraction -Holding Lasix and spironolactone -Daily weights, I's and O's-Fluid restriction, heart healthy diet-Last echo with EF 65% but indeterminant diastolic function Hx breast cancer-On anastrozole GERD-Continue PPI CKD stage III a-Appears to be at baseline-Avoid nephrotoxic agents-Daily BMPs Hx DVT/PE-Post op in 2016-Holding apixaban Anemia: Patient is B12 deficient. Did discuss with Dr. Spicer who recommends completing her B12 injections for today and tomorrow and then to follow-up in their office moving forward. He stated that she should be receiving 1000 mcg today and tomorrow. DVT ppx: SCDs Medications at Discharge Home Medications albuterol sulfate 90 mcg/actuation aerosol inhaler 2 puff inhalation Q4H PRN PRN Asthma 06/16/13 calcium citrate 315 mg calcium-vitamin D3 6.25 mcg (250 unit) tablet 2 tab PO DAILY SUPPLEMENT 10/24/18 zolpidem 12.5 mg tablet,extended release,multiphase 12.5 mg PO QHS PRN PRN Insomnia 03/24/19 denosumab 60 mg/mL subcutaneous syringe (Prolia) 60 mg subcut .[id number] bones 11/25/20 pravastatin 20 mg tablet 20 mg PO QHS CHOLESTEROL 04/28/21 acetaminophen 650 mg tablet,extended release 650 mg PO BID pain 06/17/22 hydrocodone-acetaminophen 5-325mg 5mg-325mg 1 tab PO BID PRN Pain 3 days #6 tabs 06/25/22 apixaban 5 mg tablet (Eliquis) 5 mg PO BID afib #180 tabs 09/23/22 anastrozole 1 mg tablet 1 mg PO DAILY breast cancer #90 tabs 03/13/23 amoxicillin 875 mg-potassium clavulanate 125 mg tablet 1 tab PO Q12H #8 tabs 09/04/23 pantoprazole 40 mg tablet,delayed release 40 mg PO DAILY #60 tabs 09/04/23 Hospital Course Operations None Procedures Colonoscopy and EGD Summary of Care Provided Minutes Spent on Discharge: 40 Hospital Course: Patient presents with bright red blood per rectum. Hemoglobin dropped down to around 7.5 is remained stable in that range since then. Patient underwent a colonoscopy and EGD. EGD showed a nonbleeding gastric ulcer with pigmented material was treated with heater probe. Colonoscopy showed internal and external hemorrhoids, diverticulosis, 3 bleeding colonic angiodysplastic lesions treated with heater probe. Likely the bleed was due to these angiodysplastic lesions complicated by her use of apixaban. Patient will resume apixaban and 96 hours. Patient had a CAT scan that did show diverticulitis. It was noted that patient also had some cecal colitis. Patient will be discharged with Augmentin complete a course of antibiotics. But also a CAT scan showed a mass on her kidney. Ultrasound confirmed that there was a mass on her kidney measuring 3.5 x 3.5 x 4.1 cm. I discussed the case with Dr. Spicer who recommended following up with him and then he will discuss with her at that time what neck step is to do. I did inform the patient of this finding today. Clearly she was upset and is asking about what test would be performed. I told her I did not know but I would be concerned that she may require biopsy but would defer that to oncology. Patient was stating that she is feeling weak but declines home needs for therapy at this time. Weight / BMI Weight Weight: 81.2 kg Body Mass Index (BMI) 29.7 ABG / Lab / Microbiology Data 09/04/23 06:50 09/04/23 06:50 Laboratory: Laboratory Results - last 24 hr 09/03/23 06:05: Diff Path Review Reviewed 09/04/23 06:50: WBC 2.2 L, RBC 2.38 L, Hgb 7.5 L, Hct 22.8 L, MCV 95.8, MCH 31.5, MCHC 32.9, RDW Std Deviation 53.9 H, RDW Coeff of Jenna 15.9 H, Plt Count 117 L, MPV 10.1, Immature Gran % (Auto) 0.400, Neut % (Auto) 48.1, Lymph % (Auto) 33.2, [place] % (Auto) 15.7 H, Eos % (Auto) 2.2, Baso % (Auto) 0.4, Absolute Neuts (auto) 1.1 L, Absolute Lymphs (auto) 0.74 L, Nucleated RBC % 0, Sodium 139, Potassium 3.7, Chloride 105, Carbon Dioxide 26.0, Anion Gap 8, BUN 27 H, Creatinine 1.57 H, Estim Creat Clear Calc 30.59, Est GFR (MDRD) Af Amer 41 L, Est GFR (MDRD) Non-Af 34 L, BUN/Creatinine Ratio 17.2, Glucose 133 H, Calcium 7.4 L Microbiology: Microbiology 09/02/23 10:00 Stool Enteric Bacteriology - Final 09/02/23 10:00 Stool Clostridioides difficile (PCR) - Final 09/02/23 10:00 Stool Stool Occult Blood (СВЕТЛАНА) - Final Occult Blood Positive Meaningful Use Info Meaningful Use Diagnoses (Choose all that apply): None applicable Discharge Plan Admission Admit Date/Time: 09/01/23 16:19 Primary Reason for Your Visit: GI bleed Attending Provider: Aníbal Driver Primary Care Provider: Jessica Aguero Consulting Providers: Blanca Villegas Instructions Additional Instructions / Restrictions: You had a GI bleed. Likely source was due to some lesions in your colon that were bleeding complicated by being on Eliquis. Dr. Ang was able to cauterize those. He did have an ulcer in your stomach but that did not appear to be bleeding. IM, however, going to be changing her omeprazole over to pantoprazole (also known as Protonix) which she will take twice daily for 20 days and then once daily thereafter. Because of the bleeding, we do advise you hold off on your apixaban for the next 3 to 4 days. Please return if you have further bleeding. As we discussed you do have a mass on your kidney. It is unclear what that is but certainly malignancy is a concern. I have discussed this with already with Dr. Kulkarnius will discuss further with you about what measures you will need moving forward to have that further evaluated. Discharge Orders/Prescriptions Prescriptions: New amoxicillin-pot clavulanate 875-125 mg tablet 1 tab PO Q12H Qty: 8 0RF pantoprazole 40 mg tablet,delayed release (DR/EC) 40 mg PO DAILY Qty: 60 1RF Rx Instructions: 1 tablet twice a day for 28 days and then 1 tablet daily thereafter. Continued albuterol sulfate 1 PUFF inhaler 2 puff INHALATION Q4H PRN PRN (Reason: Asthma) Patient Comments: copd zolpidem 12.5 MG tablet,ext release multiphase 12.5 mg PO QHS PRN PRN (Reason: Insomnia) calcium citrate-vitamin D3 1 EACH tablet 2 tab PO DAILY Prolia 60 mg/mL Syringe 60 mg SUBCUT [id number] Patient Comments: MD is changing to IV for next dose pravastatin 20 mg tablet 20 mg PO QHS Patient Comments: TAKE 1 TABLET BY MOUTH EVERY DAY AT BEDTIME acetaminophen 650 mg Tablet Extended Release 650 mg PO BID hydrocodone-acetaminophen 5-325 mg tablet 1 tab PO BID PRN (Reason: Pain) 3 Days Qty: 6 0RF anastrozole 1 mg tablet 1 mg PO DAILY Qty: 90 3RF Held Eliquis 5 mg tablet 5 mg PO BID Qty: 180 3RF Hold Instructions: Resume on 09/07/23. Patient Comments: TAKE 1 TABLET BY MOUTH TWICE DAILY Discontinued spironolactone 25 mg tablet 25 mg PO DAILY Qty: 90 3RF omeprazole 20 MG capsule 20 mg PO DAILY Patient Comments: DECREASES ACID IN THE STOMACH hydrochlorothiazide 25 mg tablet 25 mg PO DAILY lisinopril 20 mg tablet 20 mg PO DAILY Qty: 90 3RF furosemide 20 mg tablet 20 mg PO DAILY Qty: 90 3RF Patient Comments: has not taken this for one week Referrals / Follow Up: *[facility] [Provider Group] - 09/09/23 1:00 pm Jessica Aguero DO [Primary Care Provider] - Within 2 Weeks Disposition Disposition (needs filled in before D/C Order can be placed): Home Health Service Charges/Coding Visit Charges Inpatient E&M: 84749 Disch Hosp >30min
[2023-09-04 13:22] VITALS: BP 118/45; PULSE 61; RESP 18; TEMP 36.6; O2SAT 95
--- NOTE | 2023-09-04 14:24 | PHA.DC.MC.R ---
Pharmacy [facility] Pharmacy Service has performed discharge medication reconciliation and counseling for this patient. 1. AUGMENTIN 875/125MG 1T PO BID X 4 DAYS 2. PANTOPRAZOLE 40MG PO DAILY The patient's discharge medication list was reviewed for discrepancies and discrepancies were resolved. The patient was counseled on the following discharge medications and changes in medications for homegoing were reviewed. The Reason for Use, instructions for use, and potential side effects were reviewed for all new medications. The patient's questions regarding all of their medications were answered. The patient was able to verbally demonstrate an understanding of their discharge medications. Patient was counseled by pharmacy technician assistant, Jayy. Medications at Discharge Home Medications albuterol sulfate 90 mcg/actuation aerosol inhaler 2 puff inhalation Q4H PRN PRN Asthma 06/16/13 calcium citrate 315 mg calcium-vitamin D3 6.25 mcg (250 unit) tablet 2 tab PO DAILY SUPPLEMENT 10/24/18 zolpidem 12.5 mg tablet,extended release,multiphase 12.5 mg PO QHS PRN PRN Insomnia 03/24/19 denosumab 60 mg/mL subcutaneous syringe (Prolia) 60 mg subcut .[id number] bones 11/25/20 pravastatin 20 mg tablet 20 mg PO QHS CHOLESTEROL 04/28/21 acetaminophen 650 mg tablet,extended release 650 mg PO BID pain 06/17/22 hydrocodone-acetaminophen 5-325mg 5mg-325mg 1 tab PO BID PRN Pain 3 days #6 tabs 06/25/22 apixaban 5 mg tablet (Eliquis) 5 mg PO BID afib #180 tabs 09/23/22 anastrozole 1 mg tablet 1 mg PO DAILY breast cancer #90 tabs 03/13/23 amoxicillin 875 mg-potassium clavulanate 125 mg tablet 1 tab PO Q12H #8 tabs 09/04/23 pantoprazole 40 mg tablet,delayed release 40 mg PO DAILY #60 tabs 09/04/23
== END 2023-09-04 15:50 | disposition home health service (06) | DRG 378 ==
LOC: ED 15:52 → PCU 17:00
PROVIDERS: Internal Medicine Gastroenterology; Admitting Provider Internal Medicine; Emergency Provider Emergency Medicine; PCP Internal Medicine
PROC: 0DJD8ZZ Inspection of Lower Intestinal Tract, Via Natural or Artificial Opening Endoscopic (ICD-10-PCS; CPT 45378; principal; 2023-09-03 16:30)
DX: K55.21 Angiodysplasia of colon with hemorrhage (principal); I13.0 Hypertensive heart and chronic kidney disease with heart failure and stage 1 through stage 4 chronic kidney disease, or unspecified chronic kidney disease; K55.9 Vascular disorder of intestine, unspecified; D61.818 Other pancytopenia; I50.32 Chronic diastolic (congestive) heart failure; D68.32 Hemorrhagic disorder due to extrinsic circulating anticoagulants; D62 Acute posthemorrhagic anemia; K57.92 Diverticulitis of intestine, part unspecified, without perforation or abscess without bleeding; A09 Infectious gastroenteritis and colitis, unspecified; N18.31 Chronic kidney disease, stage 3a; J44.9 Chronic obstructive pulmonary disease, unspecified; I48.91 Unspecified atrial fibrillation; D51.9 Vitamin B12 deficiency anemia, unspecified; I25.10 Atherosclerotic heart disease of native coronary artery without angina pectoris; E78.00 Pure hypercholesterolemia, unspecified; K21.9 Gastro-esophageal reflux disease without esophagitis; K64.4 Residual hemorrhoidal skin tags; K63.5 Polyp of colon; K64.1 Second degree hemorrhoids; K44.9 Diaphragmatic hernia without obstruction or gangrene; K25.9 Gastric ulcer, unspecified as acute or chronic, without hemorrhage or perforation; T45.515A Adverse effect of anticoagulants, initial encounter; Z23 Encounter for immunization; G89.29 Other chronic pain; N28.89 Other specified disorders of kidney and ureter; Z79.01 Long term (current) use of anticoagulants; Z79.899 Other long term (current) drug therapy; Z95.0 Presence of cardiac pacemaker
CPT/HCPCS: 36415; 74178; 76770; 80048; 82274; 82962; 84443; 85025; 85027; 85610; 86850; 86900; 86901; 87493; 87506; 88305; 93005; 94668; 97162; 97166; 99252; 99284; J7030; J7050; Q9967; 90662; A4216; G0463; J2405; J3420

== ENCOUNTER → 2023-09-17 | Outpatient (CLI) | payer MEDICARE, MEDICAID, SELFPAY ==
[2023-09-17 14:04] LABS: Anion Gap 6 (5-15); BUN 37 mg/dL (7-18); BUN/Creat Ratio 28.7 RATIO (10-20); Calcium,Total 10.5 mg/dL (8.5-10.1); Chloride 107 mmol/L (98-107); Creatinine, Serum 1.29 mg/dL (0.55-1.02); EST Glomerular Filtration Rate 42 mL/min (>60); Est Glom Filt Rate - Afr Amer 51 mL/min (>60); Glucose 228 mg/dL (74-106); Potassium 3.9 mmol/L (3.5-5.1); Sodium Level 142 mmol/L (136-145)
== END | disposition home or self-care (01) ==
LOC: HHLAB 13:32
PROVIDERS: PCP Internal Medicine
DX: K55.21 Angiodysplasia of colon with hemorrhage (principal)
CPT/HCPCS: 80048

== ENCOUNTER → 2023-09-19 | Outpatient (CLI) | payer MEDICARE, MEDICAID, SELFPAY ==
--- NOTE | 2023-09-19 12:49 | CT_ITS ---
INDICATION: KIDNEY MASS STAGING -- IV CONTRAST ONLY EXAMINATION: CT CHEST WITH CONTRAST - CT Chest W/ Contrast Injection TECHNIQUE: Helically acquired images were obtained of the chest following IV contrast. A radiation dose optimization technique was used for this scan. IV Contrast dosage and agent: 97 mL [id number]-300 RADIATION DOSAGE (If Supplied By Facility): CTDIvol = ( 19.12 ) mGy, DLP = ( 618.24 ) mGycm COMPARISON: CT abdomen/pelvis dated 09/01/2023 FINDINGS: LUNGS, PLEURA AND LARGE AIRWAYS: There is a 4 mm nodule at the right lung apex on series 4, image 22. There is another 4 mm nodule at the right lung apex on image 27. There is a 5 mm nodule in the right upper lobe on image 45. There is a 3 mm nodule in the left lower lobe on image 43. Trace bilateral pleural effusions and accompanying atelectasis. No pneumothorax. THYROID: No thyroid lesions. HEART AND PERICARDIUM: Moderate cardiomegaly. Trace pericardial effusion. Coronary calcifications present. VESSELS: Thoracic aorta is not dilated. No aortic dissection. No pulmonary masses. MEDIASTINUM AND MICHELLE: No mediastinal or hilar adenopathy. Calcified subcarinal and left hilar lymph nodes. Esophagus is unremarkable. Moderate hiatal hernia. UPPER ABDOMEN: No acute pathology. BONES: No suspicious lytic or blastic abnormality. CT/Chest WITH Contrast IMPRESSION: * There are a few scattered pulmonary nodules measuring 3-4 mm as above. Follow-up bronchogenic protocol. * Evidence of prior granulomatous disease. * Cardiomegaly and triple-vessel coronary calcifications. * Moderate hiatal hernia. * Trace bilateral pleural effusions. Electronically Signed: Ric Aguilera MD at 22:16 EST Reading Location ID and State: [facility] Tel , Service support ,
--- NOTE | 2023-09-25 09:54 | CASEMGMT ---
Late Entry Grain Trimmer Sw met with patient at her scheduled outpatient oncology appointment. Sw discussed February topic of the month: anger. Sw discussed anger as part of the natural emotional process that patient may have experienced during her oncology/ cancer journey. Patient was positive and upbeat. Sw provided literature for patient to review. Patient engaged in conversation and was appreciative of support and information provided. Patient denies any needs or concerns at this time. Haley Khanna, DRY MILL WORKER, ORACLE BUSINESS ANALYST
== END | disposition home or self-care (01) ==
LOC: CT 12:49
PROVIDERS: PCP Internal Medicine; Referring Provider Internal Medicine Hematology & Oncology; Visit Provider Internal Medicine Hematology & Oncology
DX: N28.89 Other specified disorders of kidney and ureter (principal)
CPT/HCPCS: 71260; Q9967

== ENCOUNTER → 2023-09-23 | Outpatient (CLI) | payer MEDICARE, MEDICAID, SELFPAY ==
--- NOTE | 2023-09-23 10:30 | NM_ITS ---
CLINICAL: 77-year-old female with history of apparent renal cell carcinoma presenting for initial staging examination and remote history of thyroid and breast carcinoma. WHOLE BODY 99m Tc MDP RADIONUCLIDE BONE SCINTIGRAPHY COMPARISON: Previous whole body bone scintigraphy study dated 11/25/2014 FINDINGS: Following the intravenous administration of 27.0 mCi of 99m Tc MDP, whole body bone images reveal: 1. Increased tracer uptake is noted in the first lumbar vertebra posteriorly on the left, the acromioclavicular compartment of the left shoulder, the medial glenohumeral compartment of the right shoulder, bilateral wrists, left knee, hip articulations bilaterally, patellofemoral compartment of the right knee. 2. The remaining skeletal structures are scintigraphically unremarkable with normal-appearing renal images and urinary bladder activity identified. There is increased uptake noted in the proximal femoral and distal tibial components of the presumed asymptomatic right knee prosthesis most consistent with normal postsurgical change. There is interim resolution of the prior defined left proximal humeral and left proximal tibial abnormalities. NM/Bone Scan Whole Body IMPRESSION: 1. The increase in radiotracer distribution defined in the first lumbar vertebra, bilateral shoulder and wrist articulations, the left knee, the left-right hip, the patellofemoral compartment of the right knee (in the absence of patellar hardware placement) is commensurate with degenerative arthrosis. 2. Overall compared to the previous whole body bone scintigraphy study dated 11/25/2014, there is current absence of defined viable neoplastic disease. Electronically Signed: Gareth Baptiste DO at 8:31 EST ,
== END | disposition home or self-care (01) ==
PROVIDERS: PCP Internal Medicine; Referring Provider Internal Medicine Hematology & Oncology; Visit Provider Internal Medicine Hematology & Oncology
DX: N28.89 Other specified disorders of kidney and ureter (principal)
CPT/HCPCS: 78306; A9503

== ENCOUNTER 2023-10-04 01:26 | Observation (INO) | payer MEDICARE, MEDICAID, SELFPAY ==
[2023-10-04] VITALS (18 sets, daily range): BP systolic 91–136; BP diastolic 40–64; PULSE 58–71; RESP 16–24; TEMP 36.6–37.2; O2SAT 88–100; BMI 32.3; BMI 30.9
--- NOTE | 2023-10-04 02:00 | RAD_ITS ---
EXAM: XR CHEST, 1 VIEW CLINICAL INDICATION: cough TECHNIQUE: Frontal view of the chest. COMPARISON: 06/16/2022. CTA of the chest 09/19/2023. FINDINGS: LUNGS AND PLEURAL SPACES: Unremarkable. No consolidation or edema. No pneumothorax. No effusion. HEART: Mild cardiomegaly. MEDIASTINUM: Large hiatal hernia. BONES/JOINTS: Unremarkable. No acute fracture. SOFT TISSUES: Unremarkable. TUBES, LINES AND DEVICES: AV sequential pacemaker leads in good position. RAD/Chest 1 View (Portable) IMPRESSION: 1. AV sequential pacemaker leads in good position. 2. Large hiatal hernia. 3. Mild cardiomegaly. Electronically Signed: Woody Stewart MD at 2:34 EDT ,
[2023-10-04 02:03] LABS: Absolute Lymphocyte Count 0.94 X10^3/uL (0.83-4.51); Absolute Neutrophil Count 0.9 X10^3/uL (2.0-7.7); Basophil# 0.01 X10^3/uL; Basophil% 0.5 % (0-1); Eosinophil# 0.02 X10^3/uL; Eosinophils% 0.9 % (0-5); Hematocrit 19.1 % (37-47); Hemoglobin 6.2 g/dL (12.0-15.0); Lymphocyte # 0.94 X10^3/ul (0.83-4.51); Lymphocyte % 43.3 % (19-41); Mean Corp Hgb Conc 32.5 g/dL (32-36); Mean Corpuscular Hgb 32.5 pg (27.0-32.0); Mean Platelet Vol. 10.6 fl (6.2-12.0); Monocyte# 0.29 X10^3/uL; Monocyte% 13.4 % (0-10); NRBC Flagged by Analyzer 0 % (0-5); Neutrophil % 41.4 % (47-70); POSITIVE DIFFERENTIAL YES; Platelet Count 115 K/mm3 (150-450); RBC Distribution Width CV 15.4 % (11.6-14.6); RBC Distribution Width SD 54.9 fl (35.1-43.9); Red Blood Count 1.91 M/mm3 (4.2-5.4); White Blood Count 2.2 K/mm3 (4.4-11.0)
[2023-10-04 02:06] LABS: Differential Indicated SCAN CRITERIA MET
[2023-10-04 02:17] LABS: Anion Gap 7 (5-15); BNP,B-Type NATRIURETIC PEPTIDE 154.1 pg/mL (0-100); BUN 50 mg/dL (7-18); Calcium,Total 8.1 mg/dL (8.5-10.1); Chloride 100 mmol/L (98-107); Creatinine, Serum 1.85 mg/dL (0.55-1.02); EST Glomerular Filtration Rate 28 mL/min (>60); Est Glom Filt Rate - Afr Amer 34 mL/min (>60); Estimated Creatinine Clearance 27.05 ml/min; Glucose 143 mg/dL (74-106); Potassium 4.3 mmol/L (3.5-5.1); Sodium Level 142 mmol/L (136-145)
--- NOTE | 2023-10-04 03:04 | CT_ITS ---
EXAM: CT CHEST WITHOUT INTRAVENOUS CONTRAST CLINICAL INDICATION: dyspnea TECHNIQUE: Helically acquired images were obtained of the chest without intravenous contrast. This CT exam was performed using one or more of the following dose reduction techniques: automated exposure control, adjustment of the mA and/or kV according to patient size, and/or use of iterative reconstruction technique. RADIATION DOSE: CTDIvol = 17.18 mGy, DLP = 626.73 mGy-cmContrast: COMPARISON: September 19, 2023. FINDINGS: LUNGS AND PLEURAL SPACES: Mild consolidation at the lung bases adjacent to the effusions mildly increased, likely compressive atelectasis. Mild pleural effusions, increased from prior exam. Right upper lobe 4.8 mm and 3.8 mm round nodules are again noted. No pneumothorax. HEART: Appearance stents in the bilateral coronary arteries. Normal heart size. Slight pericardial effusion similar to prior exam. MEDIASTINUM: Heavily calcified subcarinal lymph nodes and left infrahilar lymph nodes are again noted. Tortuous distended distal esophagus or hiatal hernia, similar to prior exam. THYROID: Unremarkable. No thyroid lesions. BONES/JOINTS: Postoperative changes of the upper lumbar spine are partially included. No suspicious lytic or blastic abnormality. VASCULATURE: See above. GALLBLADDER AND BILE DUCTS: Cholecystectomy clips are partially included. SPLEEN: Multiple calcified granulomas again noted in the spleen. TUBES, LINES AND DEVICES: Moderately calcified aorta, mild calcifications of the left subclavian central venous catheter tip in the artery superior vena cava. CT/Chest without Contrast IMPRESSION: 1. Similar findings compared to prior enhanced exam with the exception of mild increased dependent pleural effusions and adjacent dependent mild parenchymal consolidation, likely compressive atelectasis. 2. 4-5 mm pulmonary nodules in the right upper lobe appear similar. 3. Hiatal hernia. Cholecystectomy. Coronary artery calcifications and presumed stents. Electronically Signed: Kari Hunt MD at 4:42 EDT ,
[2023-10-04] MEDS: Furosemide 40 MG/4 ML Vial IV (05:19)
--- NOTE | 2023-10-04 05:45 | HP.PCM.HOS_ITS ---
HPI - General General Date of Admission: 10/04/23 Date of Service: 10/04/23 Chief Complaint: SOB and lightheadedness. HPI Narrative ALLISON MAHER, is a 77 F with a past medical history of essential hypertension, hyperlipidemia, obesity; with BMI of 32.4 this admission, KWABENA, CAD; s/p stents, history of CHB; s/p PPM (2022), PVD, history of DVT, history of tobacco abuse; with subsequent COPD, history of Right breast cancer; s/p mastectomy (2017) on anastrazole, history of thyroid cancer, B-12 deficiency, TALAT, chronic pancytopenia, history of cholecystectomy, osteoporosis, OA, recent panendoscopy last month on September 03, [address] Ang with nonbleeding PUD and a bleeding region in her colon plus recently diagnosed Renal Cell Carcinoma followed by Dr. Spicer of oncology who presents to [facility] ER complaining of SOB and lightheadedness. Ms. Maher reports her symptoms began approximately one days prior to admission with the gradual-onset of progressively worsening SOB with her [facility] RN encouraging her to come in to the hospital around noon on October 03, 2023 but she declined to do so at that time. Unfortunately, her symptoms became worse throughout the evening and she finally decided to come in for further evaluation and treatment. She denies associated fever, chills, nausea, vomiting, diarrhea, constipation or any gross bleeding and she has not previously required supplemental oxygen but she does admit to severe dizziness and near syncope when trying to ambulate just to walk to her door to let her home health care nurse in. In the ER she was noted to have severe anemia of 6.2 g/dL present on admission accompanied by leukopenia of 2.2 and thrombocytopenia of 115 present on admission complicated by clinical evidence of acute respiratory insufficiency with patient started on supplemental oxygen and she was then admitted to the PCU for ongoing care for a stay that is expected to be greater than 48 hours. FOR[facility], [facility] Medical History Anemia Anemia Anticoagulant long-term use Asthma Atherosclerotic heart disease of [place] coronary artery without angina pectoris Atrial fibrillation B12 deficiency anemia Bilateral pleural effusion CAD (coronary artery disease) Chemo-induced gastroenteritis Chemotherapy induced nausea and vomiting Chronic anticoagulation Chronic anticoagulation Chronic pain Colitis Constipation COPD (chronic obstructive pulmonary disease) Degenerative joint disease of right hip Depression Educational circumstance Encounter for screening for malignant neoplasm of colon ER+ (estrogen receptor positive status) Essential hypertension GERD (gastroesophageal reflux disease) Carbon filter in place Heart failure, diastolic, chronic Hemorrhoid History of atrial fibrillation History of atrial fibrillation HTN (hypertension) Hx of deep vein thrombophlebitis of lower extremity Hx of hemorrhoids Hyperlipidemia Insomnia Iron deficiency anemia due to chronic blood loss Lumbar spondylosis Multiple lung nodules Obesity Obstructive sleep apnea Osteoarthritis Osteoporosis Osteoporosis Pancytopenia Paroxysmal atrial fibrillation Paroxysmal atrial fibrillation Personal history of pulmonary embolism port placement PORT REMOVAL Positive fecal occult blood test 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 Primary cancer of right female breast Pure hypercholesterolemia PVD (peripheral vascular disease) Rectal prolapse Sepsis Thyroid cancer Home Medications albuterol sulfate 90 mcg/actuation aerosol inhaler 2 puff inhalation Q4H PRN PRN Asthma 06/16/13 [History Last Taken 12/26/21] calcium citrate 315 mg calcium-vitamin D3 6.25 mcg (250 unit) tablet 2 tab PO DAILY SUPPLEMENT 10/24/18 [History Last Taken 06/16/22 10:00] zolpidem 12.5 mg tablet,extended release,multiphase 12.5 mg PO QHS PRN PRN Insomnia 03/24/19 [History Last Taken 08/31/23] denosumab 60 mg/mL subcutaneous syringe (Prolia) 60 mg subcut .[id number] bones 11/25/20 [History Last Taken 08/29/23] pravastatin 20 mg tablet 20 mg PO QHS CHOLESTEROL 04/28/21 [History Last Taken 08/31/23] acetaminophen 650 mg tablet,extended release 650 mg PO BID pain 06/17/22 [History Last Taken 08/31/23] hydrocodone-acetaminophen 5-325mg 5mg-325mg 1 tab PO BID PRN Pain 3 days #6 tabs 06/25/22 [Rx Last Taken 08/31/23] apixaban 5 mg tablet (Eliquis) 5 mg PO BID afib #180 tabs 09/23/22 [Rx Last Taken 09/01/23] anastrozole 1 mg tablet 1 mg PO DAILY breast cancer #90 tabs 03/13/23 [Rx Last Taken Unknown] pantoprazole 40 mg tablet,delayed release 40 mg PO DAILY #60 tabs 09/04/23 [Rx Last Taken Unknown] furosemide 40 mg tablet 40 mg PO DAILY 09/09/23 [History Last Taken Unknown] lisinopril 20 mg tablet 20 mg PO DAILY 09/09/23 [History Last Taken Unknown] Allergy/AdvReac Type Severity Reaction Status Date / Time niacin Allergy Intermediate I DON'T Verified 10/01/23 16:02 REMEMBER, I CAN'T TAKE IT bee venom protein (honey bee) Allergy Swelling Verified 10/01/23 16:02 Family History Brother Diabetes Heart disease Sister Breast cancer Mother Cancer brain and bone mets Aunt Breast cancer Grandmother Cancer Surgical History History of appendectomy History of cholecystectomy History of incisional hernia repair History of radiofrequency ablation procedure for cardiac arrhythmia (~05/25/22) Hx of atrioventricular node ablation Hx of mastectomy S/P carpal tunnel release S/P cataract extraction S/P hysterectomy S/P lumbar discectomy S/P partial thyroidectomy S/P revision of total knee S/P right breast biopsy S/P total knee replacement Social History household members: none Smoking Status: Never smoker alcohol intake: never substance use type: does not use caffeine: No ROS Constitutional Constitutional: Reports fatigue, malaise and weakness Cardiovascular Cardiovascular: Reports lightheadedness and other Details: Near syncope with exertion. Respiratory/Chest Respiratory/Chest: Reports dyspnea, excessive phlegm production, productive cough and shortness of breath at rest Musculoskeletal Musculoskeletal: Reports myalgias Psychiatric Psychiatric: Reports depression Endocrine Endocrinology: Reports change in body appearance Hematologic/Lymphatic Hematologic/Lymphatic: Reports anemia Vital Signs Vital Signs Vital Signs: 10/04/23 01:26 10/04/23 01:26 10/04/23 02:32 Temperature 97.9 F Temperature Source Temporal Pulse Rate 71 65 Respiratory Rate 19 H 24 H Respiratory Effort Short of Breath Respiratory Depth Shallow Respiratory Pattern Tachypnea Blood Pressure 136/43 H 125/49 H Blood Pressure Mean 74 74 Pulse Ox 88 97 Oxygen Delivery Method Room Air Nasal Cannula Oxygen Flow Rate (L/min) 2 10/04/23 03:42 10/04/23 03:43 10/04/23 04:02 Temperature 98.3 F 98.3 F Temperature Source Oral Oral Pulse Rate 63 63 60 Respiratory Rate 20 H 21 H Respiratory Effort Respiratory Depth Respiratory Pattern Blood Pressure 125/56 H 132/49 H Blood Pressure Mean 79 76 Pulse Ox 97 97 Oxygen Delivery Method Nasal Cannula Nasal Cannula Oxygen Flow Rate (L/min) 10/04/23 04:50 Temperature 98.3 F Temperature Source Temporal Pulse Rate 60 Respiratory Rate 24 H Respiratory Effort Respiratory Depth Respiratory Pattern Blood Pressure 120/49 L Blood Pressure Mean 72 Pulse Ox 97 Oxygen Delivery Method Nasal Cannula Oxygen Flow Rate (L/min) 2 Weight Weight: 194 lb 7.163 oz Body Mass Index (BMI) 32.3 Physical Exam Const alert and oriented x3 Constitutional Narrative: Mild SOB noted. General Appearance: cooperative HEENT normocephalic, head/scalp atraumatic, hearing grossly normal bilaterally and moist oral mucous membranes Eyes PERRL and EOMs intact bilaterally Eyes Narrative: Patient has darkened circles around both eyes made more striking by obvious pallor from severe anemia. Neck no lymphadenopathy and supple Resp Resp Narrative: Diminished breath sounds throughout with scattered crackles and rhonci. Auscultation: crackles and rhonchi Cardio regular rate and regular rhythm GI normal to inspection, nondistended, normoactive bowel sounds, soft to palpation, non-tender and non-distended Extremity normal to inspection and full ROM Skin Skin Narrative: Patient has no evidence of rash. Neuro oriented x3, CN's II-XII intact bilaterally, moves all extremities and no focal motor deficits Sensorium / Orientation: awake, alert, oriented to person, oriented to place and oriented to time Speech: speech normal Motor Exam: strength 5/5 throughout Psych Mood & Affect: depressed Results Medical Records Data Attestation: I reviewed the patient's medical records Lab / Micro Data Attestation: I reviewed the patient's lab results. 10/04/23 01:55 10/04/23 01:55 Labs: Laboratory Results - last 24 hr 10/04/23 01:55: WBC 2.2 L, RBC 1.91 L, Hgb 6.2 L, Hct 19.1 L, MCV 100.0 H, MCH 32.5 H, MCHC 32.5, RDW Std Deviation 54.9 H, RDW Coeff of Jenna 15.4 H, Plt Count 115 L, MPV 10.6, Immature Gran % (Auto) 0.500, Neut % (Auto) 41.4 L, Lymph % (Auto) 43.3 H, [place] % (Auto) 13.4 H, Eos % (Auto) 0.9, Baso % (Auto) 0.5, Absolute Neuts (auto) 0.9 L, Absolute Lymphs (auto) 0.94, Nucleated RBC % 0, Sodium 142, Potassium 4.3, Chloride 100, Carbon Dioxide 35.0 H, Anion Gap 7, BUN 50 H, Creatinine 1.85 H, Estim Creat Clear Calc 27.05, Est GFR (MDRD) Af Amer 34 L, Est GFR (MDRD) Non-Af 28 L, BUN/Creatinine Ratio 27.0 H, Glucose 143 H, Calcium 8.1 L, Magnesium 2.0, B-Natriuretic Peptide 154.1 H 10/04/23 02:20: Blood Type A POSITIVE, Antibody Screen NEGATIVE Micro: Microbiology 10/04/23 01:55 Mucosa - Nose SARS-CoV-2, Influenza & RSV (PCR) - Final Imaging Radiology Impression Chest X-Ray 10/04/23 02:00 IMPRESSION: 1. AV sequential pacemaker leads in good position. 2. Large hiatal hernia. 3. Mild cardiomegaly. Electronically Signed: Woody Stewart MD at 2:34 EDT , Chest CT 10/04/23 03:04 IMPRESSION: 1. Similar findings compared to prior enhanced exam with the exception of mild increased dependent pleural effusions and adjacent dependent mild parenchymal consolidation, likely compressive atelectasis. 2. 4-5 mm pulmonary nodules in the right upper lobe appear similar. 3. Hiatal hernia. Cholecystectomy. Coronary artery calcifications and presumed stents. Electronically Signed: Kari Hunt MD at 4:42 EDT , Assessment & Plan Assessment/Plan (1) Severe anemia: (2) Pancytopenia: (3) Renal cell carcinoma: QUALIFIERS: Laterality: unspecified laterality Qualified Code(s): C64.9 - Malignant neoplasm of unspecified kidney, except renal pelvis (4) Respiratory insufficiency: (5) BEREKET (acute kidney injury): PLAN: Plan 1. Severe anemia of 6.2 g/dL present on admission accompanied by leukopenia of 2.2 and thrombocytopenia of 115 present on admission in the setting of known B- 12 deficiency and TALAT with chronic pancytopenia - Admit to PCU. Transfuse one unit of PRBC's and then recheck CBC to confirm improvement. Check B-12, Folate and iron studies plus Hemoccult stools. 2. Recently diagnosed Renal Cell Carcinoma followed by Dr. Spicer of oncology complicating #1 - We will consult oncology to see this patient on-rounds in the AM for further recommendations with help appreciated in advance. 3. Suspected Adverse Drug Reaction to Eliquis at least partially contributing to #1 in the setting of recent panendoscopy last month on September 03, [address] Ang with nonbleeding PUD and a bleeding region in her colon - Start IV Protonix and keep NPO. Check NM GI bleed scan. Stop Eliquis and consider discontinuing this agent permanently as the risks seem to outweigh any potential benefit. 4. Acute Hypoxic Respiratory Insufficiency arising from #1 - #3 with a history of tobacco abuse; with subsequent COPD - Continue supplemental oxygen and give prn nebulizers with no signs of acute flare at this time. 5. Mild acute kidney injury with elevated serum creatinine at 1.85 mg/dL present on admission (up from her baseline of 1.05 mg/dL 10 days ago) - Volume resuscitate and recheck BMP in a.m. to monitor for improvement. 6. Essential hypertension - Hold scheduled antihypertensives until anemia is corrected. 7. Hyperlipidemia - Restart statin when patient is able to reliably tolerate oral intake. 8. Obesity; with BMI of 32.4 this admission plus KWABENA - Weight loss will be recommended. Continue CPAP. 9. CAD; s/p stents - Noted. 10. History of CHB; s/p PPM (2022) - Stable. 11. PVD - Stable. 12. History of DVT - Noted. 13. History of Right breast cancer; on anastrazole - Stable. 14. History of thyroid cancer - Noted. 15. History of cholecystectomy - Noted. 16. Osteoporosis - Stable. 17. OA - Noted. 18. DVT prophylaxis - SCD's only in light of #1. Total time: Approximately 55 minutes. Charges/Coding Visit Charges Inpatient E&M: 62182 Init Hosp L2
--- NOTE | 2023-10-04 06:01 | EDS_ITS ---
HPI History of Present Illness Chief Complaint: Shortness of Breath Informant: patient and EMS Narrative Narrative: Patient is a 77-year-old female with past medical history of renal cell carcinoma hypertension and COPD. Patient states that she is not currently u ndergoing any type of chemotherapy or radiation. She states that despite having COPD she does not normally require supplemental oxygen. Patient states that over the last few days she has been having increased cough and congestion and shortness of breath sensation. She reports that her home health aide recommended she come to the hospital this afternoon but she refused however this evening her symptoms worsened and EMS was called. EMS states when they arrived pulse ox was in the mid 70s. Patient denies any subjective fevers or chills and any known sick contact however with her worsening shortness of breath and hypoxia she was brought in for evaluation [facility] Medical History Anemia Anemia Anticoagulant long-term use Asthma Atherosclerotic heart disease of [place] coronary artery without angina pectoris Atrial fibrillation B12 deficiency anemia Bilateral pleural effusion CAD (coronary artery disease) Chemo-induced gastroenteritis Chemotherapy induced nausea and vomiting Chronic anticoagulation Chronic anticoagulation Chronic pain Colitis Constipation COPD (chronic obstructive pulmonary disease) Degenerative joint disease of right hip Depression Educational circumstance Encounter for screening for malignant neoplasm of colon ER+ (estrogen receptor positive status) Essential hypertension GERD (gastroesophageal reflux disease) Jody filter in place Heart failure, diastolic, chronic Hemorrhoid History of atrial fibrillation History of atrial fibrillation HTN (hypertension) Hx of deep vein thrombophlebitis of lower extremity Hx of hemorrhoids Hyperlipidemia Insomnia Iron deficiency anemia due to chronic blood loss Lumbar spondylosis Multiple lung nodules Obesity Obstructive sleep apnea Osteoarthritis Osteoporosis Osteoporosis Pancytopenia Paroxysmal atrial fibrillation Paroxysmal atrial fibrillation Personal history of pulmonary embolism port placement PORT REMOVAL Positive fecal occult blood test 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 Primary cancer of right female breast Pure hypercholesterolemia PVD (peripheral vascular disease) Rectal prolapse Sepsis Thyroid cancer Home Medications albuterol sulfate 90 mcg/actuation aerosol inhaler 2 puff inhalation Q4H PRN PRN Asthma 06/16/13 [History Last Taken 12/26/21] calcium citrate 315 mg calcium-vitamin D3 6.25 mcg (250 unit) tablet 2 tab PO DAILY SUPPLEMENT 10/24/18 [History Last Taken 06/16/22 10:00] zolpidem 12.5 mg tablet,extended release,multiphase 12.5 mg PO QHS PRN PRN Insomnia 03/24/19 [History Last Taken 08/31/23] denosumab 60 mg/mL subcutaneous syringe (Prolia) 60 mg subcut .[id number] bones 11/25/20 [History Last Taken 08/29/23] pravastatin 20 mg tablet 20 mg PO QHS CHOLESTEROL 04/28/21 [History Last Taken 08/31/23] acetaminophen 650 mg tablet,extended release 650 mg PO BID pain 06/17/22 [His tory Last Taken 08/31/23] hydrocodone-acetaminophen 5-325mg 5mg-325mg 1 tab PO BID PRN Pain 3 days #6 tabs 06/25/22 [Rx Last Taken 08/31/23] apixaban 5 mg tablet (Eliquis) 5 mg PO BID afib #180 tabs 09/23/22 [Rx Last Taken 09/01/23] anastrozole 1 mg tablet 1 mg PO DAILY breast cancer #90 tabs 03/13/23 [Rx Last Taken Unknown] pantoprazole 40 mg tablet,delayed release 40 mg PO DAILY #60 tabs 09/04/23 [Rx Last Taken Unknown] furosemide 40 mg tablet 40 mg PO DAILY 09/09/23 [History Last Taken Unknown] lisinopril 20 mg tablet 20 mg PO DAILY 09/09/23 [History Last Taken Unknown] Allergy/AdvReac Type Severity Reaction Status Date / Time niacin Allergy Intermediate I DON'T Verified 10/01/23 16:02 REMEMBER, I CAN'T TAKE IT bee venom protein (honey bee) Allergy Swelling Verified 10/01/23 16:02 Family History Brother Diabetes Heart disease Sister Breast cancer Mother Cancer brain and bone mets Aunt Breast cancer Grandmother Cancer Surgical History History of appendectomy History of cholecystectomy History of incisional hernia repair History of radiofrequency ablation procedure for cardiac arrhythmia (~05/25/22) Hx of atrioventricular node ablation Hx of mastectomy S/P carpal tunnel release S/P cataract extraction S/P hysterectomy S/P lumbar discectomy S/P partial thyroidectomy S/P revision of total knee S/P right breast biopsy S/P total knee replacement Social History household members: none Smoking Status: Never smoker alcohol intake: never substance use type: does not use caffeine: No ROS ROS ED Constitutional Constitutional ED: Denies chills or fever(s) ENT ENT ED: Reports rhinorrhea and sore throat Cardiovascular Cardiovascular: Denies chest pain Respiratory/Chest Respiratory/Chest: Reports cough and dyspnea Gastrointestinal Gastrointestinal: Denies abdominal pain, diarrhea, nausea or vomiting Genitourinary Genitourinary ED: Denies dysuria or hematuria Musculoskeletal Musculoskeletal: Denies myalgias Integumentary Denies rash Neurologic Neurologic: Reports weakness; Denies headache(s) Hematologic/Lymphatic Hematologic/Lymphatic: Reports easy bleeding and easy bruising EXAM Physical Exam Const Vital Signs: 10/04/23 01:26 10/04/23 01:26 10/04/23 02:32 Temperature 97.9 F Temperature Source Temporal Pulse Rate 71 65 Respiratory Rate 19 H 24 H Respiratory Effort Short of Breath Respiratory Depth Shallow Respiratory Pattern Tachypnea Blood Pressure 136/43 H 125/49 H Blood Pressure Mean 74 74 Pulse Ox 88 97 Oxygen Delivery Method Room Air Nasal Cannula Oxygen Flow Rate (L/min) 2 10/04/23 03:42 10/04/23 03:43 10/04/23 04:02 Temperature 98.3 F 98.3 F Temperature Source Oral Oral Pulse Rate 63 63 60 Respiratory Rate 20 H 21 H Respiratory Effort Respiratory Depth Respiratory Pattern Blood Pressure 125/56 H 132/49 H Blood Pressure Mean 79 76 Pulse Ox 97 97 Oxygen Delivery Method Nasal Cannula Nasal Cannula Oxygen Flow Rate (L/min) 10/04/23 04:50 10/04/23 05:49 10/04/23 05:49 Temperature 98.3 F 99.0 F 99.0 F Temperature Source Temporal Oral Pulse Rate 60 60 60 Respiratory Rate 24 H 16 19 H Respiratory Effort Respiratory Depth Respiratory Pattern Blood Pressure 120/49 L 124/52 H 124/52 H Blood Pressure Mean 72 76 76 Pulse Ox 97 97 97 Oxygen Delivery Method Nasal Cannula Nasal Cannula Oxygen Flow Rate (L/min) 2 2 Positive well nourished, well developed and obese General Appearance ED: well developed and pallor Nutritional Appearance: obese HEENT HEENT Narrative: No tongue or lip swelling no oral lesions no airway edema or compromise Patient has cobblestoning present in the posterior pharynx consistent with sinus drainage but no secondary changes to suggest infection Eyes PERRL and EOMs intact bilaterally General Eye ED: Yes pale conjunctiva; Negative for scleral icterus Neck supple Neck Narrative: Mild JVD is noted on left No nuchal rigidity or meningeal signs Chest Wall palpation of chest normal Resp clear to auscultation bilaterally Resp Narrative: Patient is slightly In breath sounds are diminished throughout with diffuse rhonchi and crackles. No nasal flaring or retractions noted Cardio regular rate and regular rhythm GI normal to inspection, nondistended, normoactive bowel sounds, non-tender, non- distended and no masses GI Narrative: No pulsatile mass or fluid wave Auscultation: normoactive bowel sounds Palpation: soft Extremity Extremity Narrative: +2-3 pitting edema to the bilateral lower extremities that is equal and symmetric Negative Homans' sign bilaterally Neuro oriented x3, CN's II-XII intact bilaterally and no sensory deficits noted Sensorium / Orientation: alert Motor Exam: strength 5/5 throughout Psych mental status grossly normal Skin no rashes or lesions noted General Skin Exam: pallor; Negative for jaundice MDM MDM MDM Narrative Medical decision making narrative: Patient presented to the ER mildly tachypneic with increased work of breathing and pulse ox in the mid to low 80s on room air. She denied any recent alberto motherapy or radiation that would cause immunosuppression but with the hypoxia noted by EMS there is concern for pneumonia versus pneumothorax versus pleural effusion/congestive heart failure versus potential COVID/RSV/influenza infection versus anemia. Basic blood work was obtained which did confirm anemia with a hemoglobin of 6.2. Chart review reveals patient's baseline is approximately 8. Chart review also reveals that roughly 1 month ago patient had an EGD and colonoscopy with the colonoscopy showing small areas of bleeding that were treated with heat cautery. I discussed with patient the need to repeat a rectal exam at this time and check for possible GI bleed but the patient states because of her recent colonoscopy she does not have any concern for this and does not want any type of rectal exam performed. The patient is not neutropenic and the case was discussed with her oncology. At this time they do not feel there is worthwhile transferring the patient to an outside center until she is stabilized. Therefore medicine was contacted and informed of the patient's CT scan showing pleural effusions or hypoxia at home and her new acute on chronic anemia. Therefore at this time as the patient is requiring supplemental oxygen and does not have any available at home to help treat hypoxia and at this point will require blood transfusion based on the anemia should be kept in the hospital for further care History & Record Review Discussion w/independent historian: Patient Lab Data Attestation: I reviewed the patient's lab results. Labs: Laboratory Results - last 24 hr 10/04/23 10/04/23 01:55 02:20 WBC 2.2 L RBC 1.91 L Hgb 6.2 L Hct 19.1 L MCV 100.0 H MCH 32.5 H MCHC 32.5 RDW Std Deviation 54.9 H RDW Coeff of Jenna 15.4 H Plt Count 115 L MPV 10.6 Immature Gran % (Auto) 0.500 Neut % (Auto) 41.4 L Lymph % (Auto) 43.3 H Carter % (Auto) 13.4 H Eos % (Auto) 0.9 Baso % (Auto) 0.5 Absolute Neuts (auto) 0.9 L Absolute Lymphs (auto) 0.94 Nucleated RBC % 0 Sodium 142 Potassium 4.3 Chloride 100 Carbon Dioxide 35.0 H Anion Gap 7 BUN 50 H Creatinine 1.85 H Estim Creat Clear Calc 27.05 Est GFR (MDRD) Af Amer 34 L Est GFR (MDRD) Non-Af 28 L BUN/Creatinine Ratio 27.0 H Glucose 143 H Calcium 8.1 L Magnesium 2.0 B-Natriuretic Peptide 154.1 H Blood Type A POSITIVE Antibody Screen NEGATIVE Radiography Diagnostic Testing: Clinical Impression(s) from Imaging Studies Chest X-Ray 10/04/23 02:00 IMPRESSION: 1. AV sequential pacemaker leads in good position. 2. Large hiatal hernia. 3. Mild cardiomegaly. Electronically Signed: Woody Stewart MD at 2:34 EDT , Chest CT 10/04/23 03:04 IMPRESSION: 1. Similar findings compared to prior enhanced exam with the exception of mild increased dependent pleural effusions and adjacent dependent mild parenchymal consolidation, likely compressive atelectasis. 2. 4-5 mm pulmonary nodules in the right upper lobe appear similar. 3. Hiatal hernia. Cholecystectomy. Coronary artery calcifications and presumed stents. Electronically Signed: Kari Hunt MD at 4:42 EDT , Chest x-ray as interpreted by the emergency medicine physician reveals a large hiatal hernia with cardiomegaly but no obvious infiltrate pneumothorax or pleural effusion Management Discussion w/another healthcare provider: Hospitalist and Foam Rubber Mixer Critical Care Time Critical care time (excluding procedures): Discussing w/Patient &/or Family/Fishing Tool Supervisor, Discussing w/Consultants and - (Please note critical care time of 31 minutes) Discharge Plan Dx/Rx/DC Orders Clinical Impression: Acute respiratory failure with hypoxia, Renal cell carcinoma, Anemia, Pleural effusion, bilateral Disposition Disposition: Acute Care Hospital [facility] Discharge Date/Time: 10/04/23 07:14
--- NOTE | 2023-10-04 07:15 | NM_ITS ---
CLINICAL: 77-year-old female with history of suspected acute blood loss anemia. LABELED BLOOD POOL GASTROINTESTINAL BLEEDING STUDY COMPARISON: None available FINDINGS: Following the intravenous administration of 26.4 mCi of 99m Tc Ultratag labeled RBCs, image acquisitions of the anterior-abdomen and pelvis for a total of 60 minutes reveal: 1. Review of 1 minute static and cine acquisitions of the anterior abdomen and pelvis demonstrate no evidence of increased tracer uptake indicative of acute gastrointestinal hemorrhage. 2. Physiologic radiopharmaceutical concentration is defined in the hepatic, cardiac, major vascular blood pool. NM/GI Bleed Scan IMPRESSION: 1. NEGATIVE 99m Tc ULTRATAG LABELED BLOOD POOL GASTROINTESTINAL BLEEDING EXAMINATION. 2. There is no definitive scintigraphic evidence of acute gastrointestinal hemorrhage on the current evaluation. Electronically Signed: Gareth Baptiste DO at 14:16 EDT ,
--- NOTE | 2023-10-04 07:19 | PN.HOSP_ITS ---
Reason for Visit Reason for Visit: Diagnoses Malignant neoplasm of unspecified kidney, except renal pelvis (10/04/23) Other pancytopenia (10/04/23) Anemia, unspecified (10/04/23) Acute kidney failure, unspecified (10/04/23) Other abnormalities of breathing (10/04/23) Subjective Subjective Denies hematochezia, melena. Objective Data Objective Data Vital Signs: Vital Signs Temp Pulse Resp BP Pulse Ox O2 Del Method O2 Flow Rate 37.2 C 60 19 H 124/52 H 97 Nasal Cannula 2 10/04/23 05:49 10/04/23 05:49 10/04/23 05:49 10/04/23 05:49 10/04/23 05:49 10/04/23 05:49 10/04/23 05:49 Oxygen Flow Rate (L/min) 2 Oxygen Delivery Method Nasal Cannula Weight: 88.2 kg Body Mass Index (BMI) 32.3 Lab / Micro Data 10/04/23 01:55 10/04/23 01:55 Labs: Laboratory Results - last 24 hr 10/04/23 01:55: WBC 2.2 L, RBC 1.91 L, Hgb 6.2 L, Hct 19.1 L, MCV 100.0 H, MCH 32.5 H, MCHC 32.5, RDW Std Deviation 54.9 H, RDW Coeff of Jenna 15.4 H, Plt Count 115 L, MPV 10.6, Immature Gran % (Auto) 0.500, Neut % (Auto) 41.4 L, Lymph % (Auto) 43.3 H, [place] % (Auto) 13.4 H, Eos % (Auto) 0.9, Baso % (Auto) 0.5, Absolute Neuts (auto) 0.9 L, Absolute Lymphs (auto) 0.94, Nucleated RBC % 0, Sodium 142, Potassium 4.3, Chloride 100, Carbon Dioxide 35.0 H, Anion Gap 7, BUN 50 H, Creatinine 1.85 H, Estim Creat Clear Calc 27.05, Est GFR (MDRD) Af Amer 34 L, Est GFR (MDRD) Non-Af 28 L, BUN/Creatinine Ratio 27.0 H, Glucose 143 H, Calcium 8.1 L, Magnesium 2.0, B-Natriuretic Peptide 154.1 H 10/04/23 02:20: Blood Type A POSITIVE, Antibody Screen NEGATIVE Micro: Microbiology 10/04/23 01:55 Mucosa - Nose SARS-CoV-2, Influenza & RSV (PCR) - Final Radiography Diagnostic Testing: Radiology Impression Chest X-Ray 10/04/23 02:00 IMPRESSION: 1. AV sequential pacemaker leads in good position. 2. Large hiatal hernia. 3. Mild cardiomegaly. Electronically Signed: Woody Stewart MD at 2:34 EDT , Chest CT 10/04/23 03:04 IMPRESSION: 1. Similar findings compared to prior enhanced exam with the exception of mild increased dependent pleural effusions and adjacent dependent mild parenchymal consolidation, likely compressive atelectasis. 2. 4-5 mm pulmonary nodules in the right upper lobe appear similar. 3. Hiatal hernia. Cholecystectomy. Coronary artery calcifications and presumed stents. Electronically Signed: Kari Hunt MD at 4:42 EDT , Physical Exam Const alert and no apparent distress HEENT head/scalp atraumatic and moist oral mucous membranes Cardio regular rate, regular rhythm, S1 normal heart sound and S2 normal heart sound GI normal to inspection, nondistended, normoactive bowel sounds, soft to palpation, non-tender and non-distended Extremity normal to inspection Neuro Sensorium / Orientation: awake and alert Assessment & Plan Assessment/Plan (1) Severe anemia: (2) Pancytopenia: (3) Renal cell carcinoma: QUALIFIERS: Laterality: unspecified laterality Qualified Code(s): C64.9 - Malignant neoplasm of unspecified kidney, except renal pelvis (4) Respiratory insufficiency: (5) BEREKET (acute kidney injury): PLAN: Plan Acute blood loss anemia * Hg 6.2. * Ordered 1 unit PRBCs. * Follow up B12, folate, iron studies. * Apixaban held * Bleeding scan ordered. Renal mass * subsequent visit * incidental finding on imaging from last month * Subsequently has seen Dr. Isckarus. Concerning for malignancy. * Bone scan 3/ negative. Staging chest CT showed few scattered pulmonary nodules. * Pt has since been referred to . Patient was to follow-up with urology today but I will be on hold. Patient was [facility] for eventual nephrectomy or partial nephrectomy given her high risk nature. Bilateral pleural effusions * noted on CT, slightly increased from * Prior echo showed an EF of 65% Acute kidney injury * with elevated serum creatinine at 1.85 mg/dL present on admission (up from her baseline of 1.05 mg/dL 10 days ago) - Volume resuscitate and recheck BMP in a.m. to monitor for improvement. Chronic conditions: * Essential hypertension - Hold lisinopril and furosemide given BEREKET * Hyperlipidemia - statin * Obesity; with BMI of 32.4 * KWABENA: Continue CPAP. * CAD/PAD; s/p stents * History of CHB; s/p PPM (2022) - Stable. * History of DVT - apixaban held * History of Right breast cancer; on anastrazole. Follows with oncology DVT prophylaxis - SCD's Charges/Coding Visit Charges Inpatient E&M: 12819 Subs Hosp L2
[2023-10-04 08:03] LABS: Iron 181 ug/dL (50-170); Iron Binding Capacity,Total 272 ug/dL (250-450); PERCENT IRON SATURATION 66.5 % (15.0-55.0)
[2023-10-04 09:32] LABS: Vitamin B12 > 2000 pg/mL (211-911)
[2023-10-04] MEDS: Pantoprazole Sodium 40 MG in 0.9% Normal Saline (100mL MB+) 100 ML 330 MG IV ×2 (13:16→20:13)
--- NOTE | 2023-10-04 14:30 | CHAPLAIN ---
Type of Pastoral Visit _x__ Initial Visit ___ Follow-up Visit ___ On-call Visit ___ General Patient Visit ___ Spiritual Assessment ___ Family Conference ___ Bereavement ___ Rapid Response ___ Code Blue ___ Other (describe below) Pastoral Care Referral From _x__ Patient ___ Family ___ Nurse ___ Physician ___ Technical Sales Advisor ___ Document Preparation Specialist ___ Other (describe below) Sacrament/Intervention _x__ Active listening ___ Anointing ___ Voodoo ___ Bereavement ___ Communion ___ Liz exploration ___ ___ Life review _x__ Prayer ___ Reconciliation ___ Sacrament of Sick _x__ Supportive presence ___ Wedding ___ Other (describe below) Pastoral Comments patient and son are in the room and soon son leaves room to answer his phone; 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
--- NOTE | 2023-10-04 16:00 | CASEMGMT ---
MCKENNA SOSA readmission note: Index admission: Admitted 09/01 w/GIB and d/c'd home w/[facility]: SN and [facility] 09/04. Pt declined wanting any therapy. EGD and colonoscopy done while @ hospital and colon lesions were cauterized. Pt d/c'd home w/Rx's for ATB, omeprazole changed to pantoprazole, and pt to hold Eliquis until 09/07. Pt recently diagnosed w/renal cell carcinoma and follows w/Dr Spicer. Pt also has hx of COPD. Current admission: Admitted 10/03 w/ Acute on Chronic anemia w/pancytopenia. Pt lives alone in mobile home w/ramp entrance. Independent w/ADL's and uses a rollator @ baseline. Family provides transportation. MCKENNA SOSA to room. Pt sitting up in room. Introduced self and role. Pt states she has been taking her medications as prescribed and has f/u with both Dr Aguero and Dr Spicer. She states she has upcoming appts @ [facility] for eventual nephrectomy or partial nephrectomy. She states she has all medications needed @ home except she states she is out of my pain meds. She states these are prescribed by Dr Bocanegra and she has not been able to get in to see him. She reports being active w/palliative care and that they were working w/her on this. She has a pulse ox @ home but does not have home O2. She states she does not currently have preference of DME co for oxygen, if she qualifies for it @ discharge. She denies needing other DME. She would [facility] for SN and aide only and declines wanting therapy. She declines wanting list of other HHC options as she is pleased /[facility]. [facility] order placed. She states her family will take her home @ discharge. She denies having other discharge planning needs or concerns at this time. Ervin LUCIO RN, CM
--- NOTE | 2023-10-04 16:32 | CON.PCM.ON_ITS ---
Assessment & Plan Assessment/Plan (1) Severe anemia: Status: Acute Code(s): D64.9 - Anemia, unspecified Plan: Multifactorial, in part secondary to acute on chronic GI bleeding (3 bleeding colonic angiodysplastic lesions were identified on colonoscopy 09/03/2023, gastric ulcer identified on EGD 09/03/23, and patient endorses bleeding hemorrhoids 2 days ago). Nuclear medicine bleed scan negative today. Anemia is also attributable to B12 deficiency, acute kidney injury as evidenced by creatinine 1.85 on admission today, and anemia of chronic disease. Macrocytosis may be explained by reticulocytes present as she was recently started on B12 replacement. There may also be an element of bone marrow failure as chronic pancytopenia present. Given thrombocytopenia is mild, neutropenia is moderate, these are not new findings, and ultimately values are stable, investigation of pancytopenia is not the patient's highest healthcare priority at this time and can be further explored in the outpatient setting upon discharge. Anticoagulation with Eliquis has been held and mechanical DVT prophylaxis initiated by primary team. Advise transfusion support to keep hemoglobin above 8 g/dL. (2) Pancytopenia: Status: Chronic Code(s): D61.818 - Other pancytopenia Plan: Discussed above. (3) Renal cell carcinoma: Status: Acute Code(s): C64.9 - Malignant neoplasm of unspecified kidney, except renal pelvis Qualifiers: Laterality: unspecified laterality Qualified Code(s): C64.9 - Malignant neoplasm of unspecified kidney, except renal pelvis Plan: 3.5 cm solid mass involving right kidney identified on imaging September 03, 2023. Patient to reschedule visit with [facility] urology upon discharge Case was discussed with Dr. Spicer who was in agreement with aforementioned assessment and plan. HPI Consult Data Date of Service:: 10/05/23 PCP / Referring Provider: Dr. Jessica Aguero DO Attending: Dr. Aníbal Driver DO Chief Complaint Chief Complaint: anemia, pancytopenia History of Present Illness History of Present Illness: Ms. Colleen Lopes is a pleasant 77 F with a PMH significant for hypertension, hyperlipidemia, obesity, KWABENA, CAD; s/p stents, history of CHB; s/p PPM (2022), PVD, history of DVT, history of tobacco abuse; with subsequent COPD, history of Right breast cancer; s/p mastectomy and 4 cycles of TC (2018) on adjuvant anastrazole, history of thyroid cancer, chronic pancytopenia, osteoporosis, OA and most recently chronic intermittent GI bleed and B12 deficiency. Patient was hospitalized September 01 through September 04, 2023 with acute on chronic GI bleeding. EGD and colonoscopy was performed on September 03, 2023 report indicates the presence of a large hiatal hernia, nonbleeding gastric ulcer, nonbleeding duodenal diverticulum, external and internal hemorrhoids, diverticulosis throughout colitis involving the cecum, 4 polyps within the transverse colon and cecum and and 3 bleeding colonic angiodysplastic lesions. Pathology of polyps removed showed tubular adenomas. Abdominal ultrasound obtained 09/03/2023 showed a 3.5 x 3.5 x 4.1 cm solid mass within the right kidney and 1.4 x 1.6 x 1.2 cyst involving the left kidney. CT chest with contrast 09/19/2023 demonstrated scattered subcentimeter pulmonary nodules, cardiomegaly, hiatal hernia, bilateral trace pleural effusions. Bone scan obtained September 23, 2023 negative for any evidence of enhancing lesions. As lung nodules were too small to characterize will require additional imaging in the future. Patient was referred to [facility] urology to consider nephrectomy. In the interim she presented to [facility] emergency department early this morning via EMS with complaints of shortness of breath. She was found to be tachycardic and hypoxic. Labs revealed hemoglobin 6.2. Patient refused rectal exam. Patient was subsequently admitted for management of severe anemia. Has received 1 unit of PRBCs this admission thus far. 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: Yes Living Will: Yes [facility]LY [facility] Medical History Anemia Anemia Anticoagulant long-term use Asthma Atherosclerotic heart disease of [place] coronary artery without angina pectoris Atrial fibrillation B12 deficiency anemia Bilateral pleural effusion CAD (coronary artery disease) Chemo-induced gastroenteritis Chemotherapy induced nausea and vomiting Chronic anticoagulation Chronic anticoagulation Chronic pain Colitis Constipation COPD (chronic obstructive pulmonary disease) Degenerative joint disease of right hip Depression Educational circumstance Encounter for screening for malignant neoplasm of colon ER+ (estrogen receptor positive status) Essential hypertension GERD (gastroesophageal reflux disease) [place] filter in place Heart failure, diastolic, chronic Hemorrhoid History of atrial fibrillation History of atrial fibrillation HTN (hypertension) Hx of deep vein thrombophlebitis of lower extremity Hx of hemorrhoids Hyperlipidemia Insomnia Iron deficiency anemia due to chronic blood loss Lumbar spondylosis Multiple lung nodules Obesity Obstructive sleep apnea Osteoarthritis Osteoporosis Osteoporosis Pancytopenia Paroxysmal atrial fibrillation Paroxysmal atrial fibrillation Personal history of pulmonary embolism port placement PORT REMOVAL Positive fecal occult blood test 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 Primary cancer of right female breast Pure hypercholesterolemia PVD (peripheral vascular disease) Rectal prolapse Sepsis Thyroid cancer Home Medications albuterol sulfate 90 mcg/actuation aerosol inhaler 2 puff inhalation Q4H PRN PRN Asthma 06/16/13 [History Last Taken 12/26/21] calcium citrate 315 mg calcium-vitamin D3 6.25 mcg (250 unit) tablet 2 tab PO DAILY SUPPLEMENT 10/24/18 [History Last Taken 06/16/22 10:00] zolpidem 12.5 mg tablet,extended release,multiphase 12.5 mg PO QHS PRN PRN Insomnia 03/24/19 [History Last Taken 08/31/23] denosumab 60 mg/mL subcutaneous syringe (Prolia) 60 mg subcut .[id number] bones 11/25/20 [History Last Taken 08/29/23] pravastatin 20 mg tablet 20 mg PO QHS CHOLESTEROL 04/28/21 [History Last Taken 08/31/23] acetaminophen 650 mg tablet,extended release 650 mg PO BID pain 06/17/22 [History Last Taken 08/31/23] hydrocodone-acetaminophen 5-325mg 5mg-325mg 1 tab PO BID PRN Pain 3 days #6 tabs 06/25/22 [Rx Last Taken 08/31/23] apixaban 5 mg tablet (Eliquis) 5 mg PO BID afib #180 tabs 09/23/22 [Rx Last Taken 09/01/23] anastrozole 1 mg tablet 1 mg PO DAILY breast cancer #90 tabs 03/13/23 [Rx Last Taken Unknown] pantoprazole 40 mg tablet,delayed release 40 mg PO DAILY #60 tabs 09/04/23 [Rx Last Taken Unknown] furosemide 40 mg tablet 40 mg PO DAILY 09/09/23 [History Last Taken Unknown] lisinopril 20 mg tablet 20 mg PO DAILY 09/09/23 [History Last Taken Unknown] Allergy/AdvReac Type Severity Reaction Status Date / Time niacin Allergy Intermediate I DON'T Verified 10/01/23 16:02 REMEMBER, I CAN'T TAKE IT bee venom protein (honey bee) Allergy Swelling Verified 10/01/23 16:02 Family History Brother Diabetes Heart disease Sister Breast cancer Mother Cancer brain and bone mets Aunt Breast cancer Grandmother Cancer Surgical History History of appendectomy History of cholecystectomy History of incisional hernia repair History of radiofrequency ablation procedure for cardiac arrhythmia (~05/25/22) Hx of atrioventricular node ablation Hx of mastectomy S/P carpal tunnel release S/P cataract extraction S/P hysterectomy S/P lumbar discectomy S/P partial thyroidectomy S/P revision of total knee S/P right breast biopsy S/P total knee replacement Social History household members: none Smoking Status: Never smoker alcohol intake: never substance use type: does not use caffeine: No ROS Constitutional Constitutional: Reports fatigue, malaise and weakness Cardiovascular Cardiovascular: Reports edema and lightheadedness; Denies chest pain, rapid heart rate or tachypnea Respiratory/Chest Respiratory/Chest: Reports dyspnea, excessive phlegm production, productive cough and shortness of breath at rest Gastrointestinal Gastrointestinal: Reports constipation, hemorrhoids and rectal bleeding; Denies abdominal pain or early satiety Musculoskeletal Musculoskeletal: Reports myalgias Psychiatric Psychiatric: Reports depression Hematologic/Lymphatic Hematologic/Lymphatic: Reports anemia Physical Exam Const alert, oriented x3 and no apparent distress Nutritional Appearance: obese HEENT head/scalp atraumatic and moist oral mucous membranes Eyes conjunctivae normal and no scleral icterus Neck no lymphadenopathy Resp normal respiratory effort Auscultation: rhonchi Cardio regular rate, regular rhythm, S1 normal heart sound and S2 normal heart sound GI normal to inspection, nondistended, normoactive bowel sounds, soft to palpation, non-tender and non-distended Inspection: central obesity Extremity normal to inspection Skin Skin Narrative: ecchymosis left wrist Neuro Sensorium / Orientation: awake and alert Psych Attitude: calm and engaged Memory / Cognition: cognition grossly intact Vital Signs Temperature 98.1 F 10/04/23 16:25 Temperature Source Oral 10/04/23 16:25 Pulse Rate 60 10/04/23 16:25 Respiratory Rate 16 10/04/23 16:25 Respiratory Effort Short of Breath 10/04/23 01:26 Respiratory Depth Shallow 10/04/23 14:00 Respiratory Pattern Tachypnea 10/04/23 14:00 Blood Pressure 95/47 L 10/04/23 16:25 Blood Pressure Mean 63 10/04/23 16:25 Blood Pressure Source Monitor 10/04/23 16:25 Blood Pressure Position Semi-Fowlers 10/04/23 16:25 Blood Pressure Location Left Arm 10/04/23 16:25 Pulse Ox 97 10/04/23 16:25 Oxygen Delivery Method Room Air 10/04/23 16:25 Oxygen Flow Rate (L/min) 2 10/04/23 14:58 Laboratory Results - last 24 hr 10/04/23 01:55: WBC 2.2 L, RBC 1.91 L, Hgb 6.2 L, Hct 19.1 L, MCV 100.0 H, MCH 32.5 H, MCHC 32.5, RDW Std Deviation 54.9 H, RDW Coeff of Jenna 15.4 H, Plt Count 115 L, MPV 10.6, Immature Gran % (Auto) 0.500, Neut % (Auto) 41.4 L, Lymph % (Auto) 43.3 H, [place] % (Auto) 13.4 H, Eos % (Auto) 0.9, Baso % (Auto) 0.5, Absolute Neuts (auto) 0.9 L, Absolute Lymphs (auto) 0.94, Nucleated RBC % 0, Sodium 142, Potassium 4.3, Chloride 100, Carbon Dioxide 35.0 H, Anion Gap 7, BUN 50 H, Creatinine 1.85 H, Estim Creat Clear Calc 27.05, Est GFR (MDRD) Af Amer 34 L, Est GFR (MDRD) Non-Af 28 L, BUN/Creatinine Ratio 27.0 H, Glucose 143 H, Calcium 8.1 L, Magnesium 2.0, Iron 181 H, TIBC 272, Iron Saturation 66.5 H, B- Natriuretic Peptide 154.1 H, Folate 9.60 10/04/23 02:20: Blood Type A POSITIVE, Antibody Screen NEGATIVE, Crossmatch See Detail 10/04/23 08:40: Vitamin B12 > 2000 H Microbiology 10/04/23 01:55 Mucosa - Nose SARS-CoV-2, Influenza & RSV (PCR) - Final Diagnostic Data Chest X-Ray 10/04/23 02:00 IMPRESSION: 1. AV sequential pacemaker leads in good position. 2. Large hiatal hernia. 3. Mild cardiomegaly. Electronically Signed: Woody Stewart MD at 2:34 EDT , Chest CT 10/04/23 03:04 IMPRESSION: 1. Similar findings compared to prior enhanced exam with the exception of mild increased dependent pleural effusions and adjacent dependent mild parenchymal consolidation, likely compressive atelectasis. 2. 4-5 mm pulmonary nodules in the right upper lobe appear similar. 3. Hiatal hernia. Cholecystectomy. Coronary artery calcifications and presumed stents. Electronically Signed: Kari Hunt MD at 4:42 EDT , GI Bleed Scan Nuclear Medicine 10/04/23 07:15 IMPRESSION: 1. NEGATIVE 99m Tc ULTRATAG LABELED BLOOD POOL GASTROINTESTINAL BLEEDING EXAMINATION. 2. There is no definitive scintigraphic evidence of acute gastrointestinal hemorrhage on the current evaluation. Electronically Signed: Gareth Baptiste DO at 14:16 EDT ,
--- NOTE | 2023-10-04 16:55 | CON.PCM.GI_ITS ---
HPI Consult Data Date of Consult: 10/04/23 HPI Narrative Reason for Consultation: Anemia HPI Narrative: ALLISON MAHER, is a 77 F with a past medical history of essential hypertension, hyperlipidemia, obesity; with BMI of 32.4 this admission, KWABENA, CAD; s/p stents, history of CHB; s/p PPM (2022), PVD, history of DVT, history of tobacco abuse; with subsequent COPD, history of Right breast cancer; s/p mastectomy (2017) on anastrazole, history of thyroid cancer, B-12 deficiency, TALAT, chronic pancytopenia, history of cholecystectomy, osteoporosis, OA, recent panendoscopy last month on September 03, 2023. She was discovered to have with nonbleeding PUD and a bleeding region in her colon. She was also recently diagnosed Renal Cell Carcinoma followed by Dr. Spicer of oncology who presents to [facility] ER complaining of SOB and lightheadedness. Ms. Maher reports her symptoms began approximately one days prior to admission with the gradual-onset of progressively worsening SOB with her [facility] RN encouraging her to come in to the hospital around noon on October 03, 2023 but she declined to do so at that time. Unfortunately, her symptoms became worse throughout the evening and she finally decided to come in for further evaluation and treatment. She denies associated fever, chills, nausea, vomiting, diarrhea, constipation or any gross bleeding and she has not previously required supplemental oxygen but she does admit to severe dizziness and near syncope when trying to ambulate just to walk to her door to let her home health care nurse in. In the ER she was noted to have severe anemia of 6.2 g/dL present on admission accompanied by leukopenia of 2.2 and thrombocytopenia of 115 present on admission complicated by clinical evidence of acute respiratory insufficiency with patient started on supplemental oxygen At the time she is receiving blood transfusions. Patient says she has not seen any GI bleeding. She says she has been more constipated lately milligrams. [facility] Medical History Anemia Anemia Anticoagulant long-term use Asthma Atherosclerotic heart disease of [place] coronary artery without angina pectoris Atrial fibrillation B12 deficiency anemia Bilateral pleural effusion CAD (coronary artery disease) Chemo-induced gastroenteritis Chemotherapy induced nausea and vomiting Chronic anticoagulation Chronic anticoagulation Chronic pain Colitis Constipation COPD (chronic obstructive pulmonary disease) Degenerative joint disease of right hip Depression Educational circumstance Encounter for screening for malignant neoplasm of colon ER+ (estrogen receptor positive status) Essential hypertension GERD (gastroesophageal reflux disease) [place] filter in place Heart failure, diastolic, chronic Hemorrhoid History of atrial fibrillation History of atrial fibrillation HTN (hypertension) Hx of deep vein thrombophlebitis of lower extremity Hx of hemorrhoids Hyperlipidemia Insomnia Iron deficiency anemia due to chronic blood loss Lumbar spondylosis Multiple lung nodules Obesity Obstructive sleep apnea Osteoarthritis Osteoporosis Osteoporosis Pancytopenia Paroxysmal atrial fibrillation Paroxysmal atrial fibrillation Personal history of pulmonary embolism port placement PORT REMOVAL Positive fecal occult blood test 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 Primary cancer of right female breast Pure hypercholesterolemia PVD (peripheral vascular disease) Rectal prolapse Sepsis Thyroid cancer Home Medications albuterol sulfate 90 mcg/actuation aerosol inhaler 2 puff inhalation Q4H PRN PRN Asthma 06/16/13 [History Last Taken 12/26/21] calcium citrate 315 mg calcium-vitamin D3 6.25 mcg (250 unit) tablet 2 tab PO DAILY SUPPLEMENT 10/24/18 [History Last Taken 06/16/22 10:00] zolpidem 12.5 mg tablet,extended release,multiphase 12.5 mg PO QHS PRN PRN Insomnia 03/24/19 [History Last Taken 08/31/23] denosumab 60 mg/mL subcutaneous syringe (Prolia) 60 mg subcut .[id number] bones 11/25/20 [History Last Taken 08/29/23] pravastatin 20 mg tablet 20 mg PO QHS CHOLESTEROL 04/28/21 [History Last Taken 08/31/23] acetaminophen 650 mg tablet,extended release 650 mg PO BID pain 06/17/22 [History Last Taken 08/31/23] hydrocodone-acetaminophen 5-325mg 5mg-325mg 1 tab PO BID PRN Pain 3 days #6 tabs 06/25/22 [Rx Last Taken 08/31/23] apixaban 5 mg tablet (Eliquis) 5 mg PO BID afib #180 tabs 09/23/22 [Rx Last Taken 09/01/23] anastrozole 1 mg tablet 1 mg PO DAILY breast cancer #90 tabs 03/13/23 [Rx Last Taken Unknown] pantoprazole 40 mg tablet,delayed release 40 mg PO DAILY #60 tabs 09/04/23 [Rx Last Taken Unknown] furosemide 40 mg tablet 40 mg PO DAILY 09/09/23 [History Last Taken Unknown] lisinopril 20 mg tablet 20 mg PO DAILY 09/09/23 [History Last Taken Unknown] Allergy/AdvReac Type Severity Reaction Status Date / Time niacin Allergy Intermediate I DON'T Verified 10/01/23 16:02 REMEMBER, I CAN'T TAKE IT bee venom protein (honey bee) Allergy Swelling Verified 10/01/23 16:02 Family History Brother Diabetes Heart disease Sister Breast cancer Mother Cancer brain and bone mets Aunt Breast cancer Grandmother Cancer Surgical History History of appendectomy History of cholecystectomy History of incisional hernia repair History of radiofrequency ablation procedure for cardiac arrhythmia (~05/25/22) Hx of atrioventricular node ablation Hx of mastectomy S/P carpal tunnel release S/P cataract extraction S/P hysterectomy S/P lumbar discectomy S/P partial thyroidectomy S/P revision of total knee S/P right breast biopsy S/P total knee replacement Social History household members: none Smoking Status: Never smoker alcohol intake: never substance use type: does not use caffeine: No ROS Constitutional Constitutional: Reports fatigue, malaise and weakness Cardiovascular Cardiovascular: Reports lightheadedness and other Details: Near syncope with exertion. Respiratory/Chest Respiratory/Chest: Reports dyspnea, excessive phlegm production, productive cough and shortness of breath at rest Musculoskeletal Musculoskeletal: Reports myalgias Psychiatric Psychiatric: Reports depression Endocrine Endocrinology: Reports change in body appearance Hematologic/Lymphatic Hematologic/Lymphatic: Reports anemia Physical Exam Const alert and no apparent distress HEENT head/scalp atraumatic and moist oral mucous membranes Cardio regular rate, regular rhythm, S1 normal heart sound and S2 normal heart sound GI normal to inspection, nondistended, normoactive bowel sounds, soft to palpation, non-tender and non-distended Extremity normal to inspection Neuro Sensorium / Orientation: awake and alert Lab / Micro Data 10/04/23 01:55 10/04/23 01:55 Labs: Laboratory Results - last 24 hr 10/04/23 01:55: WBC 2.2 L, RBC 1.91 L, Hgb 6.2 L, Hct 19.1 L, MCV 100.0 H, MCH 32.5 H, MCHC 32.5, RDW Std Deviation 54.9 H, RDW Coeff of [place]enna 15.4 H, Plt Count 115 L, MPV 10.6, Immature Gran % (Auto) 0.500, Neut % (Auto) 41.4 L, Lymph % (Auto) 43.3 H, [place] % (Auto) 13.4 H, Eos % (Auto) 0.9, Baso % (Auto) 0.5, Absolute Neuts (auto) 0.9 L, Absolute Lymphs (auto) 0.94, Nucleated RBC % 0, Sodium 142, Potassium 4.3, Chloride 100, Carbon Dioxide 35.0 H, Anion Gap 7, BUN 50 H, Creatinine 1.85 H, Estim Creat Clear Calc 27.05, Est GFR (MDRD) Af Amer 34 L, Est GFR (MDRD) Non-Af 28 L, BUN/Creatinine Ratio 27.0 H, Glucose 143 H, Calcium 8.1 L, Magnesium 2.0, Iron 181 H, TIBC 272, Iron Saturation 66.5 H, B- Natriuretic Peptide 154.1 H, Folate 9.60 10/04/23 02:20: Blood Type A POSITIVE, Antibody Screen NEGATIVE, Crossmatch See Detail 10/04/23 02:20: Crossmatch See Detail 10/04/23 08:40: Vitamin B12 > 2000 H Micro: Microbiology 10/04/23 01:55 Mucosa - Nose SARS-CoV-2, Influenza & RSV (PCR) - Final Imaging Radiology Impression Chest X-Ray 10/04/23 02:00 IMPRESSION: 1. AV sequential pacemaker leads in good position. 2. Large hiatal hernia. 3. Mild cardiomegaly. Electronically Signed: Woody Stewart MD at 2:34 EDT , Chest CT 10/04/23 03:04 IMPRESSION: 1. Similar findings compared to prior enhanced exam with the exception of mild increased dependent pleural effusions and adjacent dependent mild parenchymal consolidation, likely compressive atelectasis. 2. 4-5 mm pulmonary nodules in the right upper lobe appear similar. 3. Hiatal hernia. Cholecystectomy. Coronary artery calcifications and presumed stents. Electronically Signed: Kari Hunt MD at 4:42 EDT , GI Bleed Scan Nuclear Medicine 10/04/23 07:15 IMPRESSION: 1. NEGATIVE 99m Tc ULTRATAG LABELED BLOOD POOL GASTROINTESTINAL BLEEDING EXAMINATION. 2. There is no definitive scintigraphic evidence of acute gastrointestinal hemorrhage on the current evaluation. Electronically Signed: Gareth Baptiste DO at 14:16 EDT , Assessment & Plan Assessment/Plan (1) Acute lower gastrointestinal bleeding: (2) Anemia: (3) B12 deficiency anemia: QUALIFIERS: Vitamin B12 deficiency anemia type: unspecified B12 deficiency Qualified Code(s): D51.9 - Vitamin B12 deficiency anemia, unspecified (4) Atrial fibrillation: (5) GERD (gastroesophageal reflux disease): (6) HTN (hypertension): (7) 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: PLAN: Plan 77-year-old female with a past medical history of chronic back problems knee surgery complicated with pulmonary embolus. She also has a history of invasive ductal cancer ER positive (more than 95%), TX positive (21%) and HER-2/meena not amplified. She underwent right breast mastectomy with sentinel lymph node biopsy. She also has a recent diagnosis of renal cell carcinoma. She is currently pancytopenic from an unknown cause at this time BUN/creatinine ratio, presentation. With GI bleed at this time. Plan to transfuse 2 units of packed red blood cells and look to give diuretics in between. To still be anemic that she may benefit from an upper endoscopy. Patient can continue on a full liquid diet. Recommend Protonix 40 mg IV twice a day. No plans for endoscopy at this time. - Charges/Coding Visit Charges Inpatient E&M: 42371 Init Hosp L3
[2023-10-04] MEDS: 0.9% Saline Lock 10 ML Syringe IV (20:13)
[2023-10-05] VITALS (10 sets, daily range): BP systolic 101–119; BP diastolic 44–58; PULSE 60–62; RESP 16–18; TEMP 36.6–36.8; O2SAT 95–100; BMI 30.9
--- NOTE | 2023-10-05 01:18 | EKG12_ITS ---
Test Reason : CP Blood Pressure : / mmHG Vent. Rate : 060 BPM Atrial Rate : 312 BPM P-R Int : 000 ms QRS Dur : 138 ms QT Int : 486 ms P-R-T Axes : 000 097 033 degrees QTc Int : 486 ms Ventricular-paced rhythm Abnormal ECG When compared with ECG of 03-SEP-2023 08:53, Vent. rate has decreased BY 4 BPM Confirmed by JILL JAY MD ([id number]), manuscript editor ALEXEY BILLINGS ([id number]) on 10/08/2023 6:56:16 AM Referred By: Confirmed By:JILL JAY MD
--- NOTE | 2023-10-05 02:50 | RAD_ITS ---
EXAM: XR CHEST, 1 VIEW CLINICAL INDICATION: fine crackles, wheezes TECHNIQUE: Frontal view of the chest. COMPARISON: 10/04/2023. FINDINGS: LUNGS AND PLEURAL SPACES: Possible slight pleural effusions. There may be subsegmental atelectasis in the left base. No pneumothorax. HEART: Mild cardiomegaly. MEDIASTINUM: Large hiatal hernia. BONES/JOINTS: Unremarkable. No acute fracture. SOFT TISSUES: Unremarkable. TUBES, LINES AND DEVICES: AV sequential pacemaker leads remain in good position. RAD/Chest 1 View IMPRESSION: 1. Large hiatal hernia. 2. Possible slight pleural effusions. 3. Mild cardiomegaly. 4. There may be subsegmental atelectasis in the left base. Electronically Signed: Woody Stewart MD at 5:11 EDT ,
[2023-10-05] MEDS: Polyethylene Glycol 3350 17 GM PACKET PO (03:14)
[2023-10-05] MEDS: Furosemide 40 MG/4 ML Vial IV (03:14)
[2023-10-05] MEDS: 0.9% Saline Lock 10 ML Syringe IV ×4 (03:46→14:12)
[2023-10-05 03:57] LABS: Absolute Lymphocyte Count 0.75 X10^3/uL (0.83-4.51); Absolute Neutrophil Count 0.7 X10^3/uL (2.0-7.7); Basophil# 0.01 X10^3/uL; Basophil% 0.6 % (0-1); Eosinophil# 0.02 X10^3/uL; Eosinophils% 1.1 % (0-5); Hematocrit 23.4 % (37-47); Hemoglobin 7.8 g/dL (12.0-15.0); Lymphocyte # 0.75 X10^3/ul (0.83-4.51); Lymphocyte % 43.1 % (19-41); Mean Corp Hgb Conc 33.3 g/dL (32-36); Mean Corpuscular Hgb 32.5 pg (27.0-32.0); Mean Corpuscular Volume 97.5 fL (81-99); Mean Platelet Vol. 10.5 fl (6.2-12.0); Monocyte# 0.23 X10^3/uL; Monocyte% 13.2 % (0-10); NRBC Flagged by Analyzer 0 % (0-5); Neutrophil # 0.73 X10^3/uL (2.7-7.7); POSITIVE DIFFERENTIAL YES; Platelet Count 100 K/mm3 (150-450); RBC Distribution Width CV 15.4 % (11.6-14.6); RBC Distribution Width SD 54.1 fl (35.1-43.9); White Blood Count 1.7 K/mm3 (4.4-11.0)
[2023-10-05 03:58] LABS: Differential Indicated SCAN CRITERIA MET
[2023-10-05 04:15] LABS: BNP,B-Type NATRIURETIC PEPTIDE 128.6 pg/mL (0-100)
[2023-10-05 04:46] LABS: ALB/GLOB Ratio 1.1 RATIO (0.9-2.4); AST(SGOT) 12 U/L (15-37); Alanine Aminotransfer ALT/SGPT 10 U/L (13-56); Albumin, Serum 3.1 g/dL (3.2-5.0); Alkaline Phosphatase 37 U/L (45-117); Anion Gap 7 (5-15); BUN 47 mg/dL (7-18); BUN/Creat Ratio 34.3 RATIO (10-20); Calcium,Total 7.3 mg/dL (8.5-10.1); Chloride 99 mmol/L (98-107); Creatinine, Serum 1.37 mg/dL (0.55-1.02); EST Glomerular Filtration Rate 40 mL/min (>60); Est Glom Filt Rate - Afr Amer 48 mL/min (>60); Estimated Creatinine Clearance 35.74 ml/min; Globulin 2.7 g/dL (2.2-4.2); Glucose 135 mg/dL (74-106); Phosphorus 3.4 mg/dL (2.5-4.9); Potassium 3.7 mmol/L (3.5-5.1); Protein, Total 5.8 g/dL (6.4-8.2); Sodium Level 140 mmol/L (136-145); Thyroid Stim Hormone (TSH) 0.42 uIU/mL (0.358-3.74)
[2023-10-05 06:01] LABS: Differential Comment SCANNED
--- NOTE | 2023-10-05 07:43 | PCM.PN.HOSP ---
Reason for Visit Reason for Visit: Diagnoses Malignant neoplasm of unspecified kidney, except renal pelvis (10/04/23) Vitamin B12 deficiency anemia, unspecified (10/04/23) Other pancytopenia (10/04/23) Anemia, unspecified (10/04/23) Essential (primary) hypertension (10/04/23) Atrioventricular block, complete (10/04/23) Unspecified atrial fibrillation (10/04/23) Gastro-esophageal reflux disease without esophagitis (10/04/23) Gastrointestinal hemorrhage, unspecified (10/04/23) Acute kidney failure, unspecified (10/04/23) Other abnormalities of breathing (10/04/23) Presence of cardiac pacemaker (10/04/23) Subjective Subjective Doesn't feel well. Has some nausea, no vomiting. Objective Data Objective Data Vital Signs: Vital Signs Temp Pulse Resp BP Pulse Ox O2 Del Method O2 Flow Rate 36.7 C 62 18 118/55 L 99 Nasal Cannula 2 10/05/23 03:13 10/05/23 03:13 10/05/23 03:13 10/05/23 05:08 10/05/23 03:13 10/05/23 03:13 10/05/23 03:13 Oxygen Flow Rate (L/min) 2 Oxygen Delivery Method Nasal Cannula Weight: 84.5 kg Body Mass Index (BMI) 30.9 Intake & Output: Intake and Output for Last 24 Hours 10/03/23 10/04/23 10/05/23 23:59 23:59 23:59 Intake Total 870 / 870 0 / 0 Output Total 200 / 200 Balance 870 / 870 -200 / -200 Lab / Micro Data 10/05/23 03:37 10/05/23 03:37 Labs: Laboratory Results - last 24 hr 10/04/23 01:55: Iron 181 H, TIBC 272, Iron Saturation 66.5 H, Folate 9.60 10/04/23 02:20: Blood Type A POSITIVE, Antibody Screen NEGATIVE, Crossmatch See Detail 10/04/23 02:20: Crossmatch See Detail 10/04/23 08:40: Vitamin B12 > 2000 H 10/05/23 03:37: WBC 1.7 L, RBC 2.40 L, Hgb 7.8 L, Hct 23.4 L, MCV 97.5, MCH 32.5 H, MCHC 33.3, RDW Std Deviation 54.1 H, RDW Coeff of Jenna 15.4 H, Plt Count 100 L, MPV 10.5, Immature Gran % (Auto) 0.000, Neut % (Auto) 42.0 L, Lymph % (Auto) 43.1 H, Lyman % (Auto) 13.2 H, Eos % (Auto) 1.1, Baso % (Auto) 0.6, Absolute Neuts (auto) 0.7 L, Absolute Lymphs (auto) 0.75 L, Nucleated RBC % 0, Differential Comment SCANNED, Sodium 140, Potassium 3.7, Chloride 99, Carbon Dioxide 34.0 H, Anion Gap 7, BUN 47 H, Creatinine 1.37 H, Estim Creat Clear Calc 35.74, Est GFR (MDRD) Af Amer 48 L, Est GFR (MDRD) Non-Af 40 L, BUN/Creatinine Ratio 34.3 H, Glucose 135 H, Calcium 7.3 L, Phosphorus 3.4, Magnesium 2.0, Total Bilirubin 1.00, AST 12 L, ALT 10 L, Alkaline Phosphatase 37 L, B-Natriuretic Peptide 128.6 H, Total Protein 5.8 L, Albumin 3.1 L, Globulin 2.7, Albumin/Globulin Ratio 1.1, TSH 0.42 Micro: Microbiology 10/04/23 01:55 Mucosa - Nose SARS-CoV-2, Influenza & RSV (PCR) - Final Radiography Diagnostic Testing: Radiology Impression GI Bleed Scan Nuclear Medicine 10/04/23 07:15 IMPRESSION: 1. NEGATIVE 99m Tc ULTRATAG LABELED BLOOD POOL GASTROINTESTINAL BLEEDING EXAMINATION. 2. There is no definitive scintigraphic evidence of acute gastrointestinal hemorrhage on the current evaluation. Electronically Signed: Gareth Baptiste DO at 14:16 EDT , Chest X-Ray 10/05/23 02:50 IMPRESSION: 1. Large hiatal hernia. 2. Possible slight pleural effusions. 3. Mild cardiomegaly. 4. There may be subsegmental atelectasis in the left base. Electronically Signed: Woody Stewart MD at 5:11 EDT , Physical Exam Const alert and no apparent distress HEENT head/scalp atraumatic and moist oral mucous membranes Resp normal respiratory effort, no retractions, no use of accessory muscles and clear to auscultation bilaterally Cardio regular rate, regular rhythm, S1 normal heart sound and S2 normal heart sound GI normal to inspection, nondistended, normoactive bowel sounds, soft to palpation, non-tender and non-distended Neuro Sensorium / Orientation: awake and alert Assessment & Plan Assessment/Plan (1) Severe anemia: (2) Pancytopenia: (3) Renal cell carcinoma: QUALIFIERS: Laterality: unspecified laterality Qualified Code(s): C64.9 - Malignant neoplasm of unspecified kidney, except renal pelvis (4) Respiratory insufficiency: (5) BEREKET (acute kidney injury): PLAN: Plan Acute blood loss anemia Hg 6.2. Improved to 7.8 after 2 units PRBCs. Monitor B12, folate and iron within normal limits. Iron is actually on the high side. Apixaban held Bleeding scan negative. Seen by Dr. Ang, no additional endoscopy at this time. Renal mass subsequent visit incidental finding on imaging from last month Subsequently has seen Dr. Spicer. Concerning for malignancy. Bone scan 3/ negative. Staging chest CT showed few scattered pulmonary nodules. Pt has since been referred to . Patient was to follow-up with urology today but I will be on hold. Patient was going to go down to [facility] for eventual nephrectomy or partial nephrectomy given her high risk nature. Bilateral pleural effusions noted on CT, slightly increased from Prior echo showed an EF of 65% Acute kidney injury with elevated serum creatinine at 1.85 mg/dL present on admission (up from her baseline of 1.05 mg/dL 10 days ago) Improved Nausea unclear significance continue ondansetron Chronic conditions: Essential hypertension - Hold lisinopril and furosemide given BEREKET Hyperlipidemia - statin Obesity; with BMI of 32.4 KWABENA: Continue CPAP. CAD/PAD; s/p stents History of CHB; s/p PPM (2022) - Stable. History of DVT - apixaban held History of Right breast cancer; on anastrazole. Follows with oncology DVT prophylaxis - SCD's Disposition: TBD. Monitor H/H. Eventual plan is to return to SNF. Charges/Coding Visit Charges Inpatient E&M: 52361 Subs Hosp L2
[2023-10-05] MEDS: Lactulose 20 GM/30 ML UDC PO (08:47)
[2023-10-05] MEDS: Acetaminophen 325 MG Tablet 650 MG PO ×3 (08:47→22:55)
[2023-10-05] MEDS: Calcium Carb/Vitamin D 1 TABLET Tablet 2 TABLET PO (08:51)
[2023-10-05] MEDS: Ondansetron 4 MG/2 ML Vial IV (09:03)
[2023-10-05] MEDS: Nystatin Powder 15gm Bottle 1 APPLIC TOPICAL ×2 (11:14→20:30)
[2023-10-05] MEDS: Pantoprazole Sodium 40 MG in 0.9% Normal Saline (100mL MB+) 100 ML 330 MG IV ×2 (11:14→20:30)
--- NOTE | 2023-10-05 13:47 | NURSING ---
hugh Pacheco called and was updated on patient
[2023-10-05] MEDS: proCHLORPERazine 10 MG/2 ML Vial 5 MG IV (14:12)
[2023-10-05] MEDS: FLUCONAZOLE 150 MG TABLET PO (14:56)
[2023-10-05] MEDS: Glycerin/Hypromellose/PEG400 15 ml Bottle 2 DRP EACH EYE (16:17)
[2023-10-05] MEDS: Menthol/Lanolin/Calamine/Znox 113 GM Tube 1 APPLIC TOPICAL (20:30)
[2023-10-06] VITALS (7 sets, daily range): BP systolic 105–125; BP diastolic 53–76; PULSE 60–68; RESP 16–18; TEMP 36.6–36.7; O2SAT 87–100; BMI 32.0
[2023-10-06 06:54] LABS: Absolute Lymphocyte Count 0.53 X10^3/uL (0.83-4.51); Absolute Neutrophil Count 0.5 X10^3/uL (2.0-7.7); Basophil# 0.01 X10^3/uL; Basophil% 0.8 % (0-1); Eosinophil# 0.02 X10^3/uL; Eosinophils% 1.6 % (0-5); Hematocrit 22.8 % (37-47); Hemoglobin 7.7 g/dL (12.0-15.0); Lymphocyte # 0.53 X10^3/ul (0.83-4.51); Lymphocyte % 41.7 % (19-41); Mean Corp Hgb Conc 33.8 g/dL (32-36); Mean Corpuscular Hgb 33.2 pg (27.0-32.0); Mean Corpuscular Volume 98.3 fL (81-99); Monocyte# 0.24 X10^3/uL; Monocyte% 18.9 % (0-10); NRBC Flagged by Analyzer 0 % (0-5); Neutrophil # 0.47 X10^3/uL (2.7-7.7); POSITIVE COUNT YES; POSITIVE DIFFERENTIAL YES; Platelet Count 101 K/mm3 (150-450); RBC Distribution Width CV 15.2 % (11.6-14.6); RBC Distribution Width SD 53.1 fl (35.1-43.9); Red Blood Count 2.32 M/mm3 (4.2-5.4)
[2023-10-06 07:15] LABS: Anion Gap 4 (5-15); BUN 39 mg/dL (7-18); BUN/Creat Ratio 35.5 RATIO (10-20); Calcium,Total 7.6 mg/dL (8.5-10.1); Chloride 101 mmol/L (98-107); EST Glomerular Filtration Rate 51 mL/min (>60); Est Glom Filt Rate - Afr Amer 62 mL/min (>60); Estimated Creatinine Clearance 45.22 ml/min; Glucose 151 mg/dL (74-106); Potassium 3.7 mmol/L (3.5-5.1); Sodium Level 140 mmol/L (136-145)
[2023-10-06 07:20] LABS: Differential Indicated SCAN CRITERIA MET; White Blood Count 1.3 K/mm3 (4.4-11.0)
--- NOTE | 2023-10-06 07:46 | PN.HOSP_ITS ---
Reason for Visit Reason for Visit: Diagnoses Malignant neoplasm of unspecified kidney, except renal pelvis (10/04/23) Vitamin B12 deficiency anemia, unspecified (10/04/23) Other pancytopenia (10/04/23) Anemia, unspecified (10/04/23) Essential (primary) hypertension (10/04/23) Atrioventricular block, complete (10/04/23) Unspecified atrial fibrillation (10/04/23) Gastro-esophageal reflux disease without esophagitis (10/04/23) Gastrointestinal hemorrhage, unspecified (10/04/23) Acute kidney failure, unspecified (10/04/23) Other abnormalities of breathing (10/04/23) Presence of cardiac pacemaker (10/04/23) Subjective Subjective Nausea improved. Does not want to go to SNF. Increased LE edema. Objective Data Objective Data Vital Signs: Vital Signs Temp Pulse Resp BP Pulse Ox O2 Del Method O2 Flow Rate 36.6 C 65 18 121/76 H 98 Nasal Cannula 2 10/06/23 02:50 10/06/23 02:50 10/06/23 02:50 10/06/23 02:50 10/06/23 02:50 10/06/23 02:50 10/06/23 02:50 Oxygen Flow Rate (L/min) 2 Oxygen Delivery Method Nasal Cannula Weight: 87.2 kg Body Mass Index (BMI) 32.0 Intake & Output: Intake and Output for Last 24 Hours 10/04/23 10/05/23 10/06/23 23:59 23:59 23:59 Intake Total 870 / 870 1160 / 1160 Output Total 750 / 750 Balance 870 / 870 410 / 410 Lab / Micro Data 10/06/23 06:00 10/06/23 06:00 Labs: Laboratory Results - last 24 hr 10/06/23 06:00: WBC 1.3 L*, RBC 2.32 L, Hgb 7.7 L, Hct 22.8 L, MCV 98.3, MCH 33.2 H, MCHC 33.8, RDW Std Deviation 53.1 H, RDW Coeff of Jenna 15.2 H, Plt Count 101 L, MPV 11.0, Immature Gran % (Auto) 0.000, Neut % (Auto) 37.0 L, Lymph % (Auto) 41.7 H, Early % (Auto) 18.9 H, Eos % (Auto) 1.6, Baso % (Auto) 0.8, Absolute Neuts (auto) 0.5 L, Absolute Lymphs (auto) 0.53 L, Nucleated RBC % 0, Sodium 140, Potassium 3.7, Chloride 101, Carbon Dioxide 35.0 H, Anion Gap 4 L, BUN 39 H, Creatinine 1.10 H, Estim Creat Clear Calc 45.22, Est GFR (MDRD) Af Amer 62, Est GFR (MDRD) Non-Af 51 L, BUN/Creatinine Ratio 35.5 H, Glucose 151 H, Calcium 7.6 L Micro: Microbiology 10/04/23 01:55 Mucosa - Nose SARS-CoV-2, Influenza & RSV (PCR) - Final Physical Exam Const alert and no apparent distress Constitutional Narrative: No respiratory distress. Resp normal respiratory effort, no retractions, no use of accessory muscles and clear to auscultation bilaterally Cardio regular rate, regular rhythm, S1 normal heart sound and S2 normal heart sound GI normal to inspection, nondistended, normoactive bowel sounds and soft to palpation Extremity General Extremity: edema bilateral lower extremity Details: mild Assessment & Plan Assessment/Plan (1) Severe anemia: (2) Pancytopenia: (3) Renal cell carcinoma: QUALIFIERS: Laterality: unspecified laterality Qualified Code(s): C64.9 - Malignant neoplasm of unspecified kidney, except renal pelvis (4) Respiratory insufficiency: (5) BEREKET (acute kidney injury): PLAN: Plan Acute blood loss anemia * Hg 6.2. Improved to 7.8 after 2 units PRBCs. Today is 7.7 * B12, folate and iron within normal limits. Iron is actually on the high side. * Apixaban held * Bleeding scan negative. * Seen by Dr. Ang, no additional endoscopy at this time. * Suspect due to bone marrow insufficiency/failure. Pt denies hemat ochezia/melena, but cannot rule out GI source given recent history. * Will need hemoglobin followed up as outpt. Pancytopenia * stable * seen by Hematology. No acute work up at this time, but pt to follow up as outpt. Renal mass * subsequent visit * incidental finding on imaging from last month * Subsequently has seen Dr. Spicer. Concerning for malignancy. * Bone scan 3/[address] showed few scattered pulmonary nodules. * Pt has since been referred to . Patient was to follow-up with urology today but I will be on hold. Patient was going to go down to [facility] for eventual nephrectomy or partial nephrectomy given her high risk nature. Bilateral pleural effusions * noted on CT, slightly increased from * Prior echo showed an EF of 65% Acute kidney injury * with elevated serum creatinine at 1.85 mg/dL present on admission (up from her baseline of 1.05 mg/dL 10 days ago) * Improved * resume furosemide. continue to hold lisinopril. Nausea * unclear significance * continue ondansetron Chronic conditions: * Essential hypertension - Hold lisinopril and furosemide given BEREKET * Hyperlipidemia - statin * Obesity; with BMI of 32.4 * KWABENA: Continue CPAP. * CAD/PAD; s/p stents * History of CHB; s/p PPM (2022) - Stable. * History of DVT - apixaban held * History of Right breast cancer; on anastrazole. Follows with oncology DVT prophylaxis - SCD's Disposition: Home. Discussed w patient as I am concerned about her safety at home. She says she does not want SNF, rather C. She says family will assist, though, she acknowledges that she has not directly addressed with family about this. She will discuss with family today, if she and they decide on SNF, then discharge will be cancelled, otherwise dischare home with home care.
[2023-10-06] MEDS: Calcium Carb/Vitamin D 1 TABLET Tablet 2 TABLET PO (08:21)
[2023-10-06] MEDS: Acetaminophen 325 MG Tablet 650 MG PO (08:21)
[2023-10-06] MEDS: Nystatin Powder 15gm Bottle 1 APPLIC TOPICAL (08:22)
[2023-10-06] MEDS: Pantoprazole Sodium 40 MG in 0.9% Normal Saline (100mL MB+) 100 ML 330 MG IV (08:28)
--- NOTE | 2023-10-06 10:54 | DS.PCM_ITS ---
Providers Date of Admission: 10/04/23 Primary Care Physician: Dr. Jessica Aguero, Consultations 10/04/23 07:15 Consult: Oncology/Hematology Routine Consulting Provider: Helena Mcneil NP Reason for Consult: Severe acute on chronic anemia with pancytopenia with RCC. EMERGENT Consult: No Notified: Yes Date Notified: 10/04/23 Time Notified: 06:30 Method of Notification: Text 10/04/23 15:03 Consult: Gastroenterology Routine Consulting Provider: [facility] Reason for Consult: anemia EMERGENT Consult: No Notified: Yes Date Notified: 10/04/23 Time Notified: 15:03 Method of Notification: Text Reason For Visit: [id number] ANEMIA WITH PANCYTOPENIA Diagnosis Discharge Diagnosis (1) Severe anemia: Status: Acute Code(s): D64.9 - Anemia, unspecified (2) Pancytopenia: Status: Chronic Code(s): D61.818 - Other pancytopenia (3) Renal cell carcinoma: Status: Acute Code(s): C64.9 - Malignant neoplasm of unspecified kidney, except renal pelvis Qualifiers: Laterality: unspecified laterality Qualified Code(s): C64.9 - Malignant neoplasm of unspecified kidney, except renal pelvis (4) Respiratory insufficiency: Status: Acute Code(s): R06.89 - Other abnormalities of breathing (5) BEREKET (acute kidney injury): Status: Resolved Code(s): N17.9 - Acute kidney failure, unspecified Plan Acute blood loss anemia * Hg 6.2. Improved to 7.8 after 2 units PRBCs. Today is 7.7 * B12, folate and iron within normal limits. Iron is actually on the high side. * Apixaban held, resume when ok with GI and hematology. * Bleeding scan negative. * Seen by Dr. Ang, no additional endoscopy at this time. * Suspect due to bone marrow insufficiency/failure. Pt denies hematochezia/melena, but cannot rule out GI source given recent history. * Will need hemoglobin followed up as outpt. Pancytopenia * stable * seen by Hematology. No acute work up at this time, but pt to follow up as outpt. Renal mass * subsequent visit * incidental finding on imaging from last month * Subsequently has seen Dr. Spicer. Concerning for malignancy. * Bone scan 3/[address] showed few scattered pulmonary nodu les. * Pt has since been referred to . Patient was to follow-up with urology today but I will be on hold. Patient was going to go down to [facility] for eventual nephrectomy or partial nephrectomy given her high risk nature. Bilateral pleural effusions * noted on CT, slightly increased from * Prior echo showed an EF of 65% Acute kidney injury * with elevated serum creatinine at 1.85 mg/dL present on admission (up from her baseline of 1.05 mg/dL 10 days ago) * Improved * resume furosemide. continue to hold lisinopril. Nausea * unclear significance * continue ondansetron Chronic conditions: * Essential hypertension - Hold lisinopril and furosemide given BEREKET * Hyperlipidemia - statin * Obesity; with BMI of 32.4 * KWABENA: Continue CPAP. * CAD/PAD; s/p stents * History of CHB; s/p PPM (2022) - Stable. * History of DVT - apixaban held * History of Right breast cancer; on anastrazole. Follows with oncology DVT prophylaxis - SCD's Disposition: Home. Discussed w patient as I am concerned about her safety at home. She says she does not want SNF, rather C. She says family will assist, though, she acknowledges that she has not directly addressed with family about this. She will discuss with family today, if she and they decide on SNF, then discharge will be cancelled, otherwise dischare home with home care. Medications at Discharge Home Medications albuterol sulfate 90 mcg/actuation aerosol inhaler 2 puff inhalation Q4H PRN PRN Asthma 06/16/13 calcium citrate 315 mg calcium-vitamin D3 6.25 mcg (250 unit) tablet 2 tab PO DAILY SUPPLEMENT 10/24/18 zolpidem 12.5 mg tablet,extended release,multiphase 12.5 mg PO QHS PRN PRN Insomnia 03/24/19 denosumab 60 mg/mL subcutaneous syringe (Prolia) 60 mg subcut .[id number] bones 11/25/20 pravastatin 20 mg tablet 20 mg PO QHS CHOLESTEROL 04/28/21 acetaminophen 650 mg tablet,extended release 650 mg PO BID pain 06/17/22 hydrocodone-acetaminophen 5-325mg 5mg-325mg 1 tab PO BID PRN Pain 3 days #6 tabs 06/25/22 anastrozole 1 mg tablet 1 mg PO DAILY breast cancer #90 tabs 03/13/23 pantoprazole 40 mg tablet,delayed release 40 mg PO DAILY #60 tabs 09/04/23 furosemide 40 mg tablet 40 mg PO DAILY 09/09/23 ondansetron 4 mg disintegrating tablet 4 mg PO Q6H PRN nausea and vomiting #20 tabs 10/06/23 Hospital Course Operations None Procedures None Summary of Care Provided Minutes Spent on Discharge: 40 Hospital Course: Presents here with anemia with a hemoglobin of 6.2. Patient was transfused 2 units of packed blood cells and hemoglobin has remained stable at 7.8 and 7.7, respectively. Patient denied any hematochezia or melena though had recent history of lower GI bleed due to AVMs. There is concern that this could be a bone marrow failure as patient does have pancytopenia. Patient was seen by Dr. Ang of gastroenterology did not recommend that he inpatient endoscopy at this time. Patient did have a bleeding scan that was negative. Additionally, patient was seen by hematology who is concerned about bone marrow failure. Did recommend additional workup but as outpatient. Patient also did have acute kidney injury that did improve with holding her lisinopril and furosemide. Unfortunately, patient has had some increased lower extremity edema so her furosemide will be resumed upon discharge and lisinopril continue to be held. Patient is weak but she is not wanting to go to a penitentiary facility and prefer to go home. Did discuss with the patient how she can manage at home as there is no one else at home with her. She stated that her family would be there to help her though did not provide specifics. Did not seem that she has had an in-depth conversation with them about this particular issue. Patient will be discharged home with home care. Patient also does have renal mass which has been established. Patient is to follow-up with [facility] with urology for either partial or complete nephrectomy. She was deemed high risk and so that would not be done locally. Weight / BMI Weight Weight: 87.2 kg Body Mass Index (BMI) 32.0 ABG / Lab / Microbiology Data 10/06/23 06:00 10/06/23 06:00 Laboratory: Laboratory Results - last 24 hr 10/06/23 06:00: WBC 1.3 L*, RBC 2.32 L, Hgb 7.7 L, Hct 22.8 L, MCV 98.3, MCH 33.2 H, MCHC 33.8, RDW Std Deviation 53.1 H, RDW Coeff of Jenna 15.2 H, Plt Count 101 L, MPV 11.0, Immature Gran % (Auto) 0.000, Neut % (Auto) 37.0 L, Lymph % (Auto) 41.7 H, Dickens % (Auto) 18.9 H, Eos % (Auto) 1.6, Baso % (Auto) 0.8, Absolute Neuts (auto) 0.5 L, Absolute Lymphs (auto) 0.53 L, Nucleated RBC % 0, Diff Path Review November foll, Sodium 140, Potassium 3.7, Chloride 101, Carbon Dioxide 35.0 H, Anion Gap 4 L, BUN 39 H, Creatinine 1.10 H, Estim Creat Clear Calc 45.22, Est GFR (MDRD) Af Amer 62, Est GFR (MDRD) Non-Af 51 L, BUN/Crea tinine Ratio 35.5 H, Glucose 151 H, Calcium 7.6 L Microbiology: Microbiology 10/04/23 01:55 Mucosa - Nose SARS-CoV-2, Influenza & RSV (PCR) - Final D/C Instructions Discharge Diet: 8 Cup Fluid Restriction and 2000 mg Sodium Diet Meaningful Use Info Meaningful Use Diagnoses (Choose all that apply): None applicable Discharge Plan Admission Admit Date/Time: 10/04/23 06:28 Primary Reason for Your Visit: Anemia Attending Provider: Aníbal Driver Primary Care Provider: Jessica Aguero Consulting Providers: Ric Long; Helena Mcneil [employer] Instructions Additional Instructions / Restrictions: You had anemia. Your transfused 2 units of packed red blood cells. Please follow-up with gastroenterology as well hematology for further follow-up. I will be holding her apixaban (Eliquis) until okayed by GI and hematology. You did have acute kidney injury when you arrived, that improved. I did hold your Lasix and lisinopril when you are here. You will resume your Lasix upon discharge. Please follow-up with [facility] urology for evaluation of the kidney mass. Discharge Orders/Prescriptions Prescriptions: New ondansetron 4 mg tablet,disintegrating 4 mg PO Q6H PRN (Reason: nausea and vomiting) Qty: 20 0RF Continued furosemide 40 mg tablet 40 mg PO DAILY albuterol sulfate 1 PUFF inhaler 2 puff INHALATION Q4H PRN PRN (Reason: Asthma) Patient Comments: copd zolpidem 12.5 MG tablet,ext release multiphase 12.5 mg PO QHS PRN PRN (Reason: Insomnia) calcium citrate-vitamin D3 1 EACH tablet 2 tab PO DAILY Prolia 60 mg/mL Syringe 60 mg SUBCUT .[id number] Patient Comments: MD is changing to IV for next dose pravastatin 20 mg tablet 20 mg PO QHS Patient Comments: TAKE 1 TABLET BY MOUTH EVERY DAY AT BEDTIME acetaminophen 650 mg Tablet Extended Release 650 mg PO BID hydrocodone-acetaminophen 5-325 mg tablet 1 tab PO BID PRN (Reason: Pain) 3 Days Qty: 6 0RF pantoprazole 40 mg tablet,delayed release (DR/EC) 40 mg PO DAILY Qty: 60 1RF Rx Instructions: 1 tablet twice a day for 28 days and then 1 tablet daily thereafter. anastrozole 1 mg tablet 1 mg PO DAILY Qty: 90 3RF Discontinued lisinopril 20 mg tablet 20 mg PO DAILY Eliquis 5 mg tablet 5 mg PO BID Qty: 180 3RF Hold Instructions: Resume on 09/07/23. Patient Comments: TAKE 1 TABLET BY MOUTH TWICE DAILY Referrals / Follow Up: [facility] [Provider Group] - Within 1 Month [facility] [Provider Group] - 11/11/23 1:30 pm *[facility] [Provider Group] - 10/28/23 2:30 pm Jessica Aguero DO [Primary Care Provider] - Within 2 Weeks Disposition Disposition (needs filled in before D/C Order can be placed): Home Health Service Charges/Coding Visit Charges Inpatient E&M: 83054 Disch Hosp >30min
--- NOTE | 2023-10-06 11:17 | NURSING ---
I spoke with Elicia with [facility] to let her know the pt is going to be d/c today.
[2023-10-08 10:29] LABS: Pathologist Review Reviewed
== END 2023-10-06 14:51 | disposition home health service (06) | DRG 809 ==
LOC: ED 06:01 → PCU 06:17
PROVIDERS: Admitting Provider Internal Medicine; Emergency Provider Emergency Medicine; PCP Internal Medicine
DX: D62 Acute posthemorrhagic anemia (principal); D61.818 Other pancytopenia; C64.9 Malignant neoplasm of unspecified kidney, except renal pelvis; I50.32 Chronic diastolic (congestive) heart failure; I11.0 Hypertensive heart disease with heart failure; J44.9 Chronic obstructive pulmonary disease, unspecified; I48.0 Paroxysmal atrial fibrillation; R06.89 Other abnormalities of breathing; N17.9 Acute kidney failure, unspecified; Z87.19 Personal history of other diseases of the digestive system; I73.9 Peripheral vascular disease, unspecified; D51.9 Vitamin B12 deficiency anemia, unspecified; E78.00 Pure hypercholesterolemia, unspecified; I25.10 Atherosclerotic heart disease of native coronary artery without angina pectoris; M19.90 Unspecified osteoarthritis, unspecified site; G47.33 Obstructive sleep apnea (adult) (pediatric); K21.9 Gastro-esophageal reflux disease without esophagitis; E66.9 Obesity, unspecified; Z68.32 Body mass index [BMI] 32.0-32.9, adult; G89.29 Other chronic pain; Z79.811 Long term (current) use of aromatase inhibitors; M81.0 Age-related osteoporosis without current pathological fracture; Z79.01 Long term (current) use of anticoagulants; Z95.0 Presence of cardiac pacemaker; Z79.899 Other long term (current) drug therapy; Z85.3 Personal history of malignant neoplasm of breast; Z86.718 Personal history of other venous thrombosis and embolism
CPT/HCPCS: 36415; 36430; 71045; 71250; 78278; 80048; 80053; 82607; 82746; 83540; 83550; 83735; 83880; 84100; 84443; 85025; 86850; 86900; 86901; 86920; 86922; 87631; 93005; 94668; 96365; 96366; 96375; 96376; 97162; 97166; 99221; 99284; A9560; P9016; A4216; G0378; J1938; J2405

== ENCOUNTER 2023-10-11 11:06 | Outpatient (RCR) | payer MEDICARE, MEDICAID, SELFPAY ==
[2023-09-24 17:56] LABS: Anion Gap 6 (5-15); BUN 27 mg/dL (7-18); Calcium,Total 9.1 mg/dL (8.5-10.1); Chloride 106 mmol/L (98-107); Creatinine, Serum 1.04 mg/dL (0.55-1.02); EST Glomerular Filtration Rate 54 mL/min (>60); Est Glom Filt Rate - Afr Amer 66 mL/min (>60); Glucose 154 mg/dL (74-106); Potassium 3.5 mmol/L (3.5-5.1); Sodium Level 144 mmol/L (136-145)
[2023-10-11 11:28] LABS: Color, Urine Yellow (Yellow); Glucose, Dipstick Normal (Normal); Ketone-Dipstick Negative (Negative); Leukocyte Esterase-Dipstick Negative /ul (Negative); Nitrite-Dipstick Positive (Negative); Occult Blood-Urine Negative /ul (Negative); Protein-Dipstick Negative (Negative); Urine Bilirubin Dipstick Negative (Negative); Urine Clarity Clear (Clear); Urine Urobilinogen Normal (Normal); Urine pH 6.5 (5.0 - 8.0)
== END 2023-10-19 18:00 | disposition home or self-care (01) ==
LOC: HHLAB 11:06
PROVIDERS: PCP Internal Medicine; Visit Provider Internal Medicine
DX: K55.21 Angiodysplasia of colon with hemorrhage (principal)
CPT/HCPCS: 80048; 81002; 87086; 87088; 87186

== ENCOUNTER 2023-11-06 13:54 | Inpatient (IN) | payer MEDICARE, MEDICAID, SELFPAY ==
[2023-11-06] VITALS (14 sets, daily range): BP systolic 121–144; BP diastolic 44–108; PULSE 60–71; RESP 16–28; TEMP 35.9–37.1; O2SAT 95–100; BMI 32.5; BMI 31.5
[2023-11-06 14:37] LABS: Absolute Lymphocyte Count 0.42 X10^3/uL (0.83-4.51); Absolute Neutrophil Count 1.3 X10^3/uL (2.0-7.7); Basophil# 0.01 X10^3/uL; Basophil% 0.5 % (0-1); Eosinophil# 0.01 X10^3/uL; Eosinophils% 0.5 % (0-5); Hematocrit 15.6 % (37-47); Lymphocyte # 0.42 X10^3/ul (0.83-4.51); Lymphocyte % 18.9 % (19-41); Mean Corp Hgb Conc 32.1 g/dL (32-36); Mean Corpuscular Hgb 32.9 pg (27.0-32.0); Mean Corpuscular Volume 102.6 fL (81-99); Mean Platelet Vol. 10.6 fl (6.2-12.0); Monocyte# 0.46 X10^3/uL; Monocyte% 20.7 % (0-10); NRBC Flagged by Analyzer 1.4 % (0-5); Neutrophil % 58.5 % (47-70); POSITIVE COUNT YES; POSITIVE DIFFERENTIAL YES; Platelet Count 137 K/mm3 (150-450); RBC Distribution Width CV 15.9 % (11.6-14.6); RBC Distribution Width SD 54.4 fl (35.1-43.9); Red Blood Count 1.52 M/mm3 (4.2-5.4); White Blood Count 2.2 K/mm3 (4.4-11.0)
[2023-11-06 14:45] LABS: Differential Indicated SCAN CRITERIA MET
[2023-11-06 14:55] LABS: ALB/GLOB Ratio 1.1 RATIO (0.9-2.4); AST(SGOT) 12 U/L (15-37); Alanine Aminotransfer ALT/SGPT 12 U/L (13-56); Albumin, Serum 3.3 g/dL (3.2-5.0); Alkaline Phosphatase 42 U/L (45-117); Anion Gap 4 (5-15); BUN 48 mg/dL (7-18); BUN/Creat Ratio 30.8 RATIO (10-20); Calcium,Total 9.1 mg/dL (8.5-10.1); Chloride 96 mmol/L (98-107); Creatinine, Serum 1.56 mg/dL (0.55-1.02); EST Glomerular Filtration Rate 34 mL/min (>60); Est Glom Filt Rate - Afr Amer 41 mL/min (>60); Estimated Creatinine Clearance 32.15 ml/min; Globulin 3.1 g/dL (2.2-4.2); Glucose 178 mg/dL (74-106); Potassium 4.2 mmol/L (3.5-5.1); Protein, Total 6.4 g/dL (6.4-8.2); Sodium Level 138 mmol/L (136-145)
--- NOTE | 2023-11-06 14:55 | EX.ED.DYSGE1 ---
HPI History of Present Illness Chief Complaint: Abn Labs [facility] Medical History Anemia Anemia Anemia Anticoagulant long-term use Asthma Atherosclerotic heart disease of [place] coronary artery without angina pectoris Atrial fibrillation B12 deficiency anemia Bilateral pleural effusion CAD (coronary artery disease) Chemo-induced gastroenteritis Chemotherapy induced nausea and vomiting Chronic anticoagulation Chronic anticoagulation Chronic pain Colitis Constipation COPD (chronic obstructive pulmonary disease) Degenerative joint disease of right hip Depression Educational circumstance Encounter for screening for malignant neoplasm of colon ER+ (estrogen receptor positive status) Essential hypertension GERD (gastroesophageal reflux disease) [place] filter in place Heart failure, diastolic, chronic Hemorrhoid History of atrial fibrillation History of atrial fibrillation HTN (hypertension) Hx of deep vein thrombophlebitis of lower extremity Hx of hemorrhoids Hyperlipidemia Insomnia Iron deficiency anemia due to chronic blood loss Lumbar spondylosis Multiple lung nodules Obesity Obstructive sleep apnea Osteoarthritis Osteoporosis Osteoporosis Pancytopenia Paroxysmal atrial fibrillation Paroxysmal atrial fibrillation Personal history of pulmonary embolism port placement PORT REMOVAL Positive fecal occult blood test 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 Primary cancer of right female breast Pure hypercholesterolemia PVD (peripheral vascular disease) Rectal prolapse Sepsis Thyroid cancer Home Medications albuterol sulfate 90 mcg/actuation aerosol inhaler 2 puff inhalation Q4H PRN PRN Asthma 06/16/13 [History Last Taken 12/26/21] calcium citrate 315 mg calcium-vitamin D3 6.25 mcg (250 unit) tablet 2 tab PO DAILY SUPPLEMENT 10/24/18 [History Last Taken 06/16/22 10:00] zolpidem 12.5 mg tablet,extended release,multiphase 12.5 mg PO QHS PRN PRN Insomnia 03/24/19 [History Last Taken 08/31/23] denosumab 60 mg/mL subcutaneous syringe (Prolia) 60 mg subcut .[id number] bones 11/25/20 [History Last Taken 08/29/23] pravastatin 20 mg tablet 20 mg PO QHS CHOLESTEROL 04/28/21 [History Last Taken 08/31/23] acetaminophen 650 mg tablet,extended release 650 mg PO BID pain 06/17/22 [History Last Taken 08/31/23] hydrocodone-acetaminophen 5-325mg 5mg-325mg 1 tab PO BID PRN Pain 3 days #6 tabs 06/25/22 [Rx Last Taken 08/31/23] anastrozole 1 mg tablet 1 mg PO DAILY breast cancer #90 tabs 03/13/23 [Rx Last Taken Unknown] pantoprazole 40 mg tablet,delayed release 40 mg PO DAILY #60 tabs 09/04/23 [Rx Last Taken Unknown] ondansetron 4 mg disintegrating tablet 4 mg PO Q6H PRN nausea and vomiting #20 tabs 10/06/23 [Rx Last Taken Unknown] Injection #1 ea 10/23/23 [Rx Last Taken Unknown] cyanocobalamin (vitamin B-12) 1,000 mcg/mL injection kit 1,000 mcg subcut QMONTH #12 ea 10/23/23 [Rx Last Taken Unknown] Allergy/AdvReac Type Severity Reaction Status Date / Time niacin Allergy Intermediate I DON'T Verified 11/06/23 13:55 REMEMBER, I CAN'T TAKE IT bee venom protein (honey bee) Allergy Swelling Verified 11/06/23 13:55 Family History Brother Diabetes Heart disease Sister Breast cancer Mother Cancer brain and bone mets Aunt Breast cancer Grandmother Cancer Surgical History History of appendectomy History of cholecystectomy History of incisional hernia repair History of radiofrequency ablation procedure for cardiac arrhythmia (~05/25/22) Hx of atrioventricular node ablation Hx of mastectomy S/P carpal tunnel release S/P cataract extraction S/P hysterectomy S/P lumbar discectomy S/P partial thyroidectomy S/P revision of total knee S/P right breast biopsy S/P total knee replacement Social History household members: none Smoking Status: Never smoker alcohol intake: never substance use type: does not use caffeine: No EXAM Physical Exam Const Vital Signs: 11/06/23 13:55 11/06/23 15:54 11/06/23 16:26 Temperature 96.7 F L Temperature Source Temporal Pulse Rate 64 65 Respiratory Rate 18 19 H Respiratory Effort Normal Respiratory Pattern Normal Blood Pressure 121/67 H Blood Pressure Mean 85 Blood Pressure Source Blood Pressure Position Blood Pressure Location Pulse Ox 100 97 Oxygen Delivery Method Nasal Cannula Oxygen Flow Rate (L/min) 2 11/06/23 16:47 11/06/23 17:02 11/06/23 17:00 Temperature 96.6 F L 96.6 F L Temperature Source Temporal Temporal Pulse Rate 60 60 60 Respiratory Rate 23 H 23 H 21 H Respiratory Effort Respiratory Pattern Blood Pressure 125/46 H 123/46 H 123/46 H Blood Pressure Mean 72 71 71 Blood Pressure Source Monitor Monitor Blood Pressure Position Supine Blood Pressure Location Left Arm Pulse Ox 98 98 98 Oxygen Delivery Method Nasal Cannula Nasal Cannula Nasal Cannula Oxygen Flow Rate (L/min) 2 3 MDM MDM MDM Narrative Medical decision making narrative: Patient presenting with low hemoglobin today. She denies any black or bloody stools. She is normotensive. She is pale. Patient states she is not on any chemotherapy and she is unclear about her history of renal cell carcinoma. On rectal exam her rectal vault is empty. I did send for Hemoccult stool. Patient is having some abdominal pains ongoing to need some imaging. I spoke with Dr. Ang regarding this and he feels like a CTA would be the most helpful. Patient's GFR is 34 so she is given IV fluids. We also discussed her lab work and is concerned that her indirect bilirubin is elevated and she is pancytopenic. He concern that she might have myelodysplastic syndrome versus hemolytic anemia. He reports that I speak with Dr. Spicer her reinspector regarding this because she may need a peripheral smear versus steroids versus bone marrow biopsy. He did recommend transfusing blood which is ordered and pending. CBC shows white blood cell count 2.2, hemoglobin 5.0, platelets 137 creatinine 1.56, GFR 34 LFTs are normal with exception of bilirubin elevated 1.2. I spoke with Dr. Spicer regarding the case and he states he already had a direct Sherwin test which was negative so he does not think it is hemolytic anemia. He also stated that he did not think it was myelodysplastic syndrome because this usually has a slower drop in hemoglobin. He states that at times it can be difficult with a history of malignancy determining the drop in the hemoglobin. He does believe this might be a GI bleed. Hemoccult came back positive. CTA of the abdomen pelvis was negative. Discussed the case again with Dr. More who is amenable to scoping her. Blood is transfusing. Patient was admitted to the hospitalist. Impression: 1. Acute blood loss anemia 2. Gastrointestinal bleed 3. Abdominal pain 4. Nausea Lab Data Labs: Laboratory Results - last 24 hr 11/06/23 14:25 WBC 2.2 L RBC 1.52 L Hgb 5.0 L* Hct 15.6 L MCV 102.6 H MCH 32.9 H MCHC 32.1 RDW Std Deviation 54.4 H RDW Coeff of Jenna 15.9 H Plt Count 137 L MPV 10.6 Immature Gran % (Auto) 0.900 Neut % (Auto) 58.5 Lymph % (Auto) 18.9 L [place] % (Auto) 20.7 H Eos % (Auto) 0.5 Baso % (Auto) 0.5 Absolute Neuts (auto) 1.3 L Absolute Lymphs (auto) 0.42 L Nucleated RBC % 1.4 Diff Path Review November foll Sodium 138 Potassium 4.2 Chloride 96 L Carbon Dioxide 38.0 H Anion Gap 4 L BUN 48 H Creatinine 1.56 H Estim Creat Clear Calc 32.15 Est GFR (MDRD) Af Amer 41 L Est GFR (MDRD) Non-Af 34 L BUN/Creatinine Ratio 30.8 H Glucose 178 H Calcium 9.1 Total Bilirubin 1.20 H AST 12 L ALT 12 L Alkaline Phosphatase 42 L Total Protein 6.4 Albumin 3.3 Globulin 3.1 Albumin/Globulin Ratio 1.1 Blood Type A POSITIVE Antibody Screen NEGATIVE Crossmatch See Detail Radiography Diagnostic Testing: Clinical Impression(s) from Imaging Studies Abdomen/Pelvis CTA 11/06/23 15:18 IMPRESSION: Bibasilar consolidations and pleural effusions consistent with pneumonia. Cardiomegaly with pericardial effusion. No acute findings in the abdomen or pelvis. Stable 2.8 cm hyperdense right renal cortical cystic lesion. This is shown to be a solid mass by prior renal ultrasound 09/02/2023 and should be considered as a renal cell carcinoma until proven otherwise. Suggest six-month follow-up for stability.. Electronically Signed: Josué Mckinney MD at 16:42 EDT , Discharge Plan Triage Chief Complaint: Abn Labs ED Provider: Favian Phillips Dx/Rx/DC Orders Primary Care Provider: Jessica Aguero
--- NOTE | 2023-11-06 15:18 | CT_ITS ---
INDICATION: abdominal pain EXAMINATION: CTA abdomen and pelvis - TECHNIQUE: Routine abdominal CT angiogram protocol was performed with IV contrast. MIP images provided. A radiation dose optimization technique was used for this scan. IV Contrast dosage and agent: 100 cc [id number]-370 RADIATION DOSAGE (If Supplied By Facility): CTDIvol = ( 52.25 ) mGy, DLP = ( 1045.39 ) mGycm COMPARISON: Prior study dated: 09/01/2023 FINDINGS: Lung bases: Bibasilar small consolidations with pleural effusions. Stable retrocardiac hiatal hernia. Cardiomegaly with moderate pericardial effusion up to 15 mm. Liver: Normal. No bile ductal dilatation. Gallbladder: Cholecystectomy. Spleen: Normal. Adrenal gland: Normal. Kidneys: Stable 2.8 cm hyperdense cortical cystic lesion right interpolar region. No hydronephrosis bilaterally. Pancreas:Normal. Bowel gas pattern: Nonobstructive. Appendix: Appendix not identified. No inflammatory changes along the cecum present. Free air: None. Free fluid: None. Pelvis: Pelvic organs: No mass lesion noted. Uterus surgically absent. Bone survey: No aggressive bony lesions. No acute fractures. Stable surgical changes from lumbar fusion surgery with hardware. Adenopathy: No significant pathologic adenopathy detected. Other: Supraumbilical ventral hernia contains loop of transverse colon without strangulation or proximal obstruction. Vascular: Normal vascular anatomy, CT/CTA Abd/Pelvis W/WO Contrast IMPRESSION: Bibasilar consolidations and pleural effusions consistent with pneumonia. Cardiomegaly with pericardial effusion. No acute findings in the abdomen or pelvis. Stable 2.8 cm hyperdense right renal cortical cystic lesion. This is shown to be a solid mass by prior renal ultrasound 09/02/2023 and should be considered as a renal cell carcinoma until proven otherwise. Suggest six-month follow-up for stability.. Electronically Signed: Josué Mckinney MD at 16:42 EDT ,
[2023-11-06] MEDS: 0.9% Normal Saline (1000mL) 1,000 ML 999 ML IV (15:30)
--- NOTE | 2023-11-06 17:15 | CON.PCM.GI_ITS ---
HPI Consult Data Date of Consult: 11/06/23 HPI Narrative Reason for Consultation: Anemia HPI Narrative: ALLISON MAHER, is a 77 F with a past medical history of essential hypertension, hyperlipidemia, obesity; with BMI of 32.4 this admission, [place]WAB[place], CAD; s/p stents, history of CHB; s/p PPM (2022), PVD, history of DVT, history of tobacco abuse; with subsequent COPD, history of Right breast cancer; s/p mastectomy (2017) on anastrazole, history of thyroid cancer, B-12 deficiency, TALAT, chronic pancytopenia, history of cholecystectomy, osteoporosis, OA, recent panendoscopy on September 03, 2023. * EGD showed large hiatal hernia, nonbleeding gastric ulcer with pigmented material. This is treated with heater probe. Nonbleeding duodenal diverticulum. * Colonoscopy showed hemorrhoids and the perianal exam, external and internal hemorrhoids, diverticulosis, segmental moderate inflammation found in the cecum secondary to colitis which was biopsied. 3 bleeding colonic angiodysplastic lesions treated with heater probe. Four 1 to 2 mm polyps in the transverse colon and in the cecum. * Removed with hot snare. She presented today from the oncologist office with abnormal labs and hemoglobin discovered to be 5 which is down from 7.7. CTA of the abdomen pelvis today displayed : bibasilar consolidations and pleural effusions consistent with pneumonia. Cardiomegaly with pericardial effusion. No acute findings in the abdomen or pelvis. Stable 2.8 cm hyperdense right renal cortical cystic lesion. This is shown to be a solid mass by prior renal ultrasound 09/02/2023 and should be considered as a renal cell carcinoma until proven otherwise. Suggest six-month follow-up for stability.. Her stools were checked and they were Hemoccult positive. She does deny seeing any blood. [facility] Medical History Anemia Anemia Anemia Anticoagulant long-term use Asthma Atherosclerotic heart disease of [place] coronary artery without angina pectoris Atrial fibrillation B12 deficiency anemia Bilateral pleural effusion CAD (coronary artery disease) Chemo-induced gastroenteritis Chemotherapy induced nausea and vomiting Chronic anticoagulation Chronic anticoagulation Chronic pain Colitis Constipation COPD (chronic obstructive pulmonary disease) Degenerative joint disease of right hip Depression Educational circumstance Encounter for screening for malignant neoplasm of colon ER+ (estrogen receptor positive status) Essential hypertension GERD (gastroesophageal reflux disease) [place] filter in place Heart failure, diastolic, chronic Hemorrhoid History of atrial fibrillation History of atrial fibrillation HTN (hypertension) Hx of deep vein thrombophlebitis of lower extremity Hx of hemorrhoids Hyperlipidemia Insomnia Iron deficiency anemia due to chronic blood loss Lumbar spondylosis Multiple lung nodules Obesity Obstructive sleep apnea Osteoarthritis Osteoporosis Osteoporosis Pancytopenia Paroxysmal atrial fibrillation Paroxysmal atrial fibrillation Personal history of pulmonary embolism port placement PORT REMOVAL Positive fecal occult blood test 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 Primary cancer of right female breast Pure hypercholesterolemia PVD (peripheral vascular disease) Rectal prolapse Sepsis Thyroid cancer Home Medications albuterol sulfate 90 mcg/actuation aerosol inhaler 2 puff inhalation Q4H PRN PRN Asthma 06/16/13 [History Last Taken 12/26/21] calcium citrate 315 mg calcium-vitamin D3 6.25 mcg (250 unit) tablet 2 tab PO DAILY SUPPLEMENT 10/24/18 [History Last Taken 06/16/22 10:00] zolpidem 12.5 mg tablet,extended release,multiphase 12.5 mg PO QHS PRN PRN Insomnia 03/24/19 [History Last Taken 08/31/23] denosumab 60 mg/mL subcutaneous syringe (Prolia) 60 mg subcut .[id number] bones 11/25/20 [History Last Taken 08/29/23] pravastatin 20 mg tablet 20 mg PO QHS CHOLESTEROL 04/28/21 [History Last Taken 08/31/23] acetaminophen 650 mg tablet,extended release 650 mg PO BID pain 06/17/22 [History Last Taken 08/31/23] hydrocodone-acetaminophen 5-325mg 5mg-325mg 1 tab PO BID PRN Pain 3 days #6 tabs 06/25/22 [Rx Last Taken 08/31/23] anastrozole 1 mg tablet 1 mg PO DAILY breast cancer #90 tabs 03/13/23 [Rx Last Taken Unknown] pantoprazole 40 mg tablet,delayed release 40 mg PO DAILY #60 tabs 09/04/23 [Rx Last Taken Unknown] ondansetron 4 mg disintegrating tablet 4 mg PO Q6H PRN nausea and vomiting #20 tabs 10/06/23 [Rx Last Taken Unknown] Injection #1 ea 10/23/23 [Rx Last Taken Unknown] cyanocobalamin (vitamin B-12) 1,000 mcg/mL injection kit 1,000 mcg subcut QMONTH #12 ea 10/23/23 [Rx Last Taken Unknown] Allergy/AdvReac Type Severity Reaction Status Date / Time niacin Allergy Intermediate I DON'T Verified 11/06/23 13:55 REMEMBER, I CAN'T TAKE IT bee venom protein (honey bee) Allergy Swelling Verified 11/06/23 13:55 Family History Brother Diabetes Heart disease Sister Breast cancer Mother Cancer brain and bone mets Aunt Breast cancer Grandmother Cancer Surgical History History of appendectomy History of cholecystectomy History of incisional hernia repair History of radiofrequency ablation procedure for cardiac arrhythmia (~05/25/22) Hx of atrioventricular node ablation Hx of mastectomy S/P carpal tunnel release S/P cataract extraction S/P hysterectomy S/P lumbar discectomy S/P partial thyroidectomy S/P revision of total knee S/P right breast biopsy S/P total knee replacement Social History household members: none Smoking Status: Never smoker alcohol intake: never substance use type: does not use caffeine: No ROS Constitutional Constitutional: Reports fatigue, malaise and weakness Cardiovascular Cardiovascular: Reports lightheadedness and other Details: Near syncope with exertion. Respiratory/Chest Respiratory/Chest: Reports dyspnea, excessive phlegm production, productive cough and shortness of breath at rest Musculoskeletal Musculoskeletal: Reports myalgias Psychiatric Psychiatric: Reports depression Endocrine Endocrinology: Reports change in body appearance Hematologic/Lymphatic Hematologic/Lymphatic: Reports anemia Physical Exam Const alert and no apparent distress Constitutional Narrative: No respiratory distress. Resp normal respiratory effort, no retractions, no use of accessory muscles and clear to auscultation bilaterally Cardio regular rate, regular rhythm, S1 normal heart sound and S2 normal heart sound GI normal to inspection, nondistended, normoactive bowel sounds and soft to palpation Extremity General Extremity: edema bilateral lower extremity Details: mild Lab / Micro Data 11/06/23 14:25 11/06/23 14:25 Labs: Laboratory Results - last 24 hr 11/06/23 14:25: WBC 2.2 L, RBC 1.52 L, Hgb 5.0 L*, Hct 15.6 L, MCV 102.6 H, MCH 32.9 H, MCHC 32.1, RDW Std Deviation 54.4 H, RDW Coeff of Jenna 15.9 H, Plt Count 137 L, MPV 10.6, Immature Gran % (Auto) 0.900, Neut % (Auto) 58.5, Lymph % (Auto) 18.9 L, [place] % (Auto) 20.7 H, Eos % (Auto) 0.5, Baso % (Auto) 0.5, Absolute Neuts (auto) 1.3 L, Absolute Lymphs (auto) 0.42 L, Nucleated RBC % 1.4, Diff Path Review November, Sodium 138, Potassium 4.2, Chloride 96 L, Carbon Dioxide 38.0 H, Anion Gap 4 L, BUN 48 H, Creatinine 1.56 H, Estim Creat Clear Calc 32.15, Est GFR (MDRD) Af Amer 41 L, Est GFR (MDRD) Non-Af 34 L, BUN/Creatinine Ratio 30.8 H, Glucose 178 H, Calcium 9.1, Total Bilirubin 1.20 H, AST 12 L, ALT 12 L, Alkaline Phosphatase 42 L, Total Protein 6.4, Albumin 3.3, Globulin 3.1, Albumin/Globulin Ratio 1.1, Blood Type A POSITIVE, Antibody Screen NEGATIVE, Crossmatch See Detail Micro: Microbiology 11/06/23 14:55 Stool Stool Occult Blood (СВЕТЛАНА) - Final Occult Blood Positive Imaging Radiology Impression Abdomen/Pelvis CTA 11/06/23 15:18 IMPRESSION: Bibasilar consolidations and pleural effusions consistent with pneumonia. Cardiomegaly with pericardial effusion. No acute findings in the abdomen or pelvis. Stable 2.8 cm hyperdense right renal cortical cystic lesion. This is shown to be a solid mass by prior renal ultrasound 09/02/2023 and should be considered as a renal cell carcinoma until proven otherwise. Suggest six-month follow-up for stability.. Electronically Signed: Josué Mckinney MD at 16:42 EDT , Assessment & Plan Assessment/Plan (1) Severe anemia: (2) Pancytopenia: (3) Renal cell carcinoma: QUALIFIERS: Laterality: unspecified laterality Qualified Code(s): C64.9 - Malignant neoplasm of unspecified kidney, except renal pelvis (4) Respiratory insufficiency: (5) BEREKET (acute kidney injury): PLAN: Plan Acute blood loss anemia * Previous Hg 6.2. Improved to 7.7 after 2 units PRBCs. Today is 5.0 * B12, folate and iron within normal limits. Iron is actually on the high side. * Apixaban held * CTA is negative * She has had bleeding in her GI tract previously when she did not have any symptoms of GI bleeding and her stools are fecal occult positive. She would benefit from an upper endoscopy and if negative we may have to repeat her colonoscopy. She will definitely need a capsule endoscopy as an outpatient. * Pancytopenia * stable * seen by Hematology. Possible plan for bone marrow biopsy. Renal mass * subsequent visit * incidental finding on imaging * Subsequently has seen Dr. Spicer. Concerning for malignancy. * Bone scan 3/[address] showed few scattered pulmonary nodules. Bilateral pleural effusions * noted on CT, * Prior echo showed an EF of 65% . Charges/Coding Visit Charges Inpatient E&M: 46292 Init Hosp L3
--- NOTE | 2023-11-06 17:50 | HP.PCM.HOS_ITS ---
HPI - General General Date of Admission: 11/06/23 Date of Service: 11/06/23 Chief Complaint: Dyspnea, fatigue, abnormal Hgb. HPI Narrative The patient is a 77 y/o F w/ PMHx: Hx VTE, Obesity, Chronic BL LE Edema/Lymphedema, Chronic anemia, Chronic leukopenia, KWABENA non-complaint with PAP therapy, HFpEF, HTN, HLD, COPD/Asthma w/ Chronic Hypoxic Respiratory Failure (2L NC), Hx R sided Breast CA unclear type s/p R mastectomy, GERD, PAF s/p RFA, Hx Complete HB s/p pacemaker status, Hx Thyroid CA s/p partial thyroidectomy, Nonobstructive CAD who presents to the [facility] ED on 11/06/23 with history of fatigue and malaise, abdominal cramping and discomfort with no nausea or emesis with occasional bright red blood per rectum but reports she does have hemorrhoids although initially she did report to the ED normal-appearing stools with outpatient assessment with significantly low hemoglobin prompting referral to the ED given concerns. Workup in the ED included T96.7, heart rate 64, BP 121/67, respiratory rate 18, 100% on 2 L nasal cannula, CBC with WBC 2.2, hemoglobin 5.0, MCV 102.6, platelet 137 with neutropenia and lymphopenia, CBC with WBC 2.2, hemoglobin 5.0, MCV 102.6, platelet 137 with neutropenia and lymphopenia, CMP with chloride 96, Comvax at 38, BUN/creatinine 48/1.56, GFR 34, glucose 178, T. bili 1.20, AST/ALT 12/12, alk phos 42, urinalysis unremarkable, stool guaiac positive, CTA abdomen and pelvis with basilar consolidations and pleural effusions concerning for pneumonia, cardiomegaly with pericardial effusion, no acute findings in the abdomen or pelvis, stable 2.8 cm hyperdense right renal cortical cystic lesion. ED discussed case with gastroenterology as well as hematology/oncology. In the ED patient administered 1 L normal saline bolus, morphine 4 mg IV x 1, Zofran 4 mg IV x 1 as well as Protonix 80 mg bolus. [facility] Medical History (Updated 11/06/23 @ 21:[address] Arlet Maldonado MD) Anemia Asthma Atherosclerotic heart disease of [place] coronary artery without angina pectoris Atrial fibrillation B12 deficiency anemia Bilateral pleural effusion CAD (coronary artery disease) Chemo-induced gastroenteritis Chemotherapy induced nausea and vomiting Chronic pain Constipation COPD (chronic obstructive pulmonary disease) Degenerative joint disease of right hip Depression Educational circumstance Encounter for screening for malignant neoplasm of colon ER+ (estrogen receptor positive status) Essential hypertension GERD (gastroesophageal reflux disease) Jody filter in place Heart failure, diastolic, chronic Hemorrhoid HTN (hypertension) Hx of deep vein thrombophlebitis of lower extremity Hx of hemorrhoids Hyperlipidemia Insomnia Iron deficiency anemia due to chronic blood loss Lumbar spondylosis Multiple lung nodules Obesity Obstructive sleep apnea Osteoarthritis Osteoporosis Pancytopenia Paroxysmal atrial fibrillation Personal history of pulmonary embolism port placement PORT REMOVAL 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[id number] bones 11/25/20 [History Last Taken 08/29/23] pravastatin 20 mg tablet 20 mg PO QHS CHOLESTEROL 04/28/21 [History Last Taken 08/31/23] acetaminophen 650 mg tablet,extended release 650 mg PO BID pain 06/17/22 [History Last Taken 08/31/23] hydrocodone-acetaminophen 5-325mg 5mg-325mg 1 tab PO BID PRN Pain 3 days #6 tabs 06/25/22 [Rx Last Taken 08/31/23] anastrozole 1 mg tablet 1 mg PO DAILY breast cancer #90 tabs 03/13/23 [Rx Last Taken Unknown] pantoprazole 40 mg tablet,delayed release 40 mg PO DAILY #60 tabs 09/04/23 [Rx Last Taken Unknown] ondansetron 4 mg disintegrating tablet 4 mg PO Q6H PRN nausea and vomiting #20 tabs 10/06/23 [Rx Last Taken Unknown] Injection #1 ea 10/23/23 [Rx Last Taken Unknown] cyanocobalamin (vitamin B-12) 1,000 mcg/mL injection kit 1,000 mcg subcut QMONTH #12 ea 10/23/23 [Rx Last Taken Unknown] Allergy/AdvReac Type Severity Reaction Status Date / Time niacin Allergy Intermediate I DON'T Verified 11/06/23 13:55 REMEMBER, I CAN'T TAKE IT bee venom protein (honey bee) Allergy Swelling Verified 11/06/23 13:55 Family History Brother Diabetes Heart disease Sister Breast cancer Mother Cancer brain and bone mets Aunt Breast cancer Grandmother Cancer Surgical History History of appendectomy History of cholecystectomy History of incisional hernia repair History of radiofrequency ablation procedure for cardiac arrhythmia (~05/25/22) Hx of atrioventricular node ablation Hx of mastectomy S/P carpal tunnel release S/P cataract extraction S/P hysterectomy S/P lumbar discectomy S/P partial thyroidectomy S/P revision of total knee S/P right breast biopsy S/P total knee replacement Social History household members: none Smoking Status: Never smoker alcohol intake: never substance use type: does not use caffeine: No ROS ROS Narrative Admission Review of Systems: CONSTITUTIONAL: No weight loss, fever, chills, + weakness or fatigue. HEENT: Eyes: No visual loss, blurred vision, double vision or yellow sclerae. Ears, Nose, Throat: No hearing loss, sneezing, congestion, runny nose or sore throat. SKIN: No rash or itching, lesions, wounds. CARDIOVASCULAR: + Chronic edema. No chest pain, chest pressure or chest discomfort, palpitations, orthopnea, syncopal events. RESPIRATORY: + Dyspnea. No marked cough or sputum, wheezing, hemoptysis. GASTROINTESTINAL: + Abdominal cramping, anorexia, occasional bright red blood per rectum reported. No nausea, vomiting, diarrhea, melena. GENITOURINARY: No dysuria, frequency, urgency or retention. NEUROLOGICAL: No headache, dizziness, syncope, paralysis, ataxia, numbness or tingling in the extremities, focal weakness, change in bowel or bladder control, seizure. MUSCULOSKELETAL: + muscle, back pain, joint pain or stiffness. HEMATOLOGIC: + Chronic anemia, easy bleeding/bruising. LYMPHATICS: No enlarged nodes. No history of splenectomy. PSYCHIATRIC: No history of depression or anxiety. ENDOCRINOLOGIC: No reports of sweating, cold or heat intolerance. No polyuria or polydipsia. ALLERGIES: + History of bee venom allergy. Vital Signs Vital Signs Vital Signs: 11/06/23 13:55 11/06/23 15:54 11/06/23 16:26 Temperature 96.7 F L Temperature Source Temporal Pulse Rate 64 65 Respiratory Rate 18 19 H Respiratory Effort Normal Respiratory Pattern Normal Blood Pressure 121/67 H Blood Pressure Mean 85 Blood Pressure Source Blood Pressure Position Blood Pressure Location Pulse Ox 100 97 Oxygen Delivery Method Nasal Cannula Oxygen Flow Rate (L/min) 2 11/06/23 16:47 11/06/23 17:02 11/06/23 17:00 Temperature 96.6 F L 96.6 F L Temperature Source Temporal Temporal Pulse Rate 60 60 60 Respiratory Rate 23 H 23 H 21 H Respiratory Effort Respiratory Pattern Blood Pressure 125/46 H 123/46 H 123/46 H Blood Pressure Mean 72 71 71 Blood Pressure Source Monitor Monitor Blood Pressure Position Supine Blood Pressure Location Left Arm Pulse Ox 98 98 98 Oxygen Delivery Method Nasal Cannula Nasal Cannula Nasal Cannula Oxygen Flow Rate (L/min) 2 3 Weight Weight: 195 lb 5.273 oz Body Mass Index (BMI) 32.5 Physical Exam Narrative Physical Examination: General: Awake, alert, oriented x 3 and cooperative, seated upright in the ED bed, pale appearing, fatigued otherwise no acute distress. Skin: Pale color, normal turgor, no icterus, no cyanosis. HEENT: AT/NC, EOMI, PERRLA, moderately dry MM, no carotid bruits or JVD noted. Lungs: Diminished, greater bases, mildly increased respiratory rate but no distress, no markedly appreciated rales, ronchi or wheezing. Heart: Regular rate and rhythm; no gallop, rub audible. Abdomen: Soft, obese, NTTP, mildly hyperactive BS, no appreciated distention or HSM. Extremities: No cyanosis, no clubbing, notable 3+ bilateral lower extremity chronic pitting edema pedal to knee. Neurological: Patient awake, alert, oriented as noted, cognitive function intact; pupils equally reactive to light and accommodation, cranial nerves grossly normal, moving all 4 extremities, no focal deficits, strength moderately to severely global decrease secondary to acute presentation complaints Psychiatric: Affect appears fatigued, initially mildly irritable but calmed, no acute evidence of depressive or anxiety feelings. Results Lab / Micro Data 11/06/23 14:25 11/06/23 14:25 Labs: Laboratory Results - last 24 hr 11/06/23 14:25: WBC 2.2 L, RBC 1.52 L, Hgb 5.0 L*, Hct 15.6 L, MCV 102.6 H, MCH 32.9 H, MCHC 32.1, RDW Std Deviation 54.4 H, RDW Coeff of Jenna 15.9 H, Plt Count 137 L, MPV 10.6, Immature Gran % (Auto) 0.900, Neut % (Auto) 58.5, Lymph % (Auto) 18.9 L, Nelson % (Auto) 20.7 H, Eos % (Auto) 0.5, Baso % (Auto) 0.5, Absolute Neuts (auto) 1.3 L, Absolute Lymphs (auto) 0.42 L, Nucleated RBC % 1.4, Diff Path Review November, Sodium 138, Potassium 4.2, Chloride 96 L, Carbon Dioxide 38.0 H, Anion Gap 4 L, BUN 48 H, Creatinine 1.56 H, Estim Creat Clear Calc 32.15, Est GFR (MDRD) Af Amer 41 L, Est GFR (MDRD) Non-Af 34 L, BUN/Creatinine Ratio 30.8 H, Glucose 178 H, Calcium 9.1, Total Bilirubin 1.20 H, AST 12 L, ALT 12 L, Alkaline Phosphatase 42 L, Total Protein 6.4, Albumin 3.3, Globulin 3.1, Albumin/Globulin Ratio 1.1, Blood Type A POSITIVE, Antibody Screen NEGATIVE, Crossmatch See Detail Micro: Microbiology 11/06/23 14:55 Stool Stool Occult Blood (СВЕТЛАНА) - Final Occult Blood Positive Imaging Radiology Impression Abdomen/Pelvis CTA 11/06/23 15:18 IMPRESSION: Bibasilar consolidations and pleural effusions consistent with pneumonia. Cardiomegaly with pericardial effusion. No acute findings in the abdomen or pelvis. Stable 2.8 cm hyperdense right renal cortical cystic lesion. This is shown to be a solid mass by prior renal ultrasound 09/02/2023 and should be considered as a renal cell carcinoma until proven otherwise. Suggest six-month follow-up for stability.. Electronically Signed: Josué Mckinney MD at 16:42 EDT , Assessment & Plan Assessment/Plan (1) Acute anemia: PLAN: Plan The patient is a 77 y/o F w/ PMHx: Hx VTE, Obesity, Chronic BL LE Edema/Lymphedema, Chronic anemia, Chronic leukopenia, KWABENA non-complaint with PAP therapy, HFpEF, HTN, HLD, COPD/Asthma w/ Chronic Hypoxic Respiratory Failure (2L NC), Hx R sided Breast CA unclear type s/p R mastectomy, GERD, PAF s/p RFA, Hx Complete HB s/p pacemaker status, Hx Thyroid CA s/p partial thyroidectomy, Nonobstructive CAD who presents to the [facility] ED on 11/06/23 with history of fatigue and malaise, abdominal cramping and discomfort with no nausea or emesis with occasional bright red blood per rectum but reports she does have hemorrhoids although initially she did report to the ED normal-appearing stools with outpatient assessment with significantly low hemoglobin prompting referral to the ED given concerns. #1. Acute GI Bleed w/ resultant Acute Blood Loss Anemia on chronic with concern for significant acute on chronic pancytopenia with neutropenia/lymphopenia for additionally concurrent overlapping oncological/hematological process: Per facility protocol given hemoglobin of 5 will admit to the ICU although patient is clinically stable, per protocol given ICU admission will request supervisor tumbling and rolling involvement, will continue GI consultation, will maintain on just evaluate the fluids, will continue serial H+H assessment, will continue with the ED initiated 2 unit PRBC, will maintain on IV Protonix infusion, gastroenterology consulted and evaluation pending, clears allowed until midnight with n.p.o. status following with planned at least upper endoscopy in a.m., also discussed case and consulted hematology/oncology as patient does have chronic pancytopenia with concerns for underlying malignant process and may require eventual bone marrow biopsy. Iron panel, ferritin, vitamin B12 and folic acid levels requested. #2. Incidentally noted bibasilar consolidation and pleural effusions concerning for pneumonia: Patient with no overt cough, fever, chills or dyspnea complaints, will continue chronic oxygen supplementation, will obtain procalcitonin, urine antigens, sputum culture if able, repeat chest x-ray a.m. following overnight judicious hydration and if more suspicious for pneumonia will initiate antibiotic therapy #3. Incidental pericardial effusion: Will request echocardiogram to further evaluate, will continue to maintain on telemetry monitoring. #4. Stable hyperdense right renal cortical cystic lesion, unclear significance: CTA abdomen and pelvis with stable 2.8 cm hyperdense right renal cortical cystic lesion demonstrated to be a solid mass by prior renal ultrasound 09/02/2023, concerning for possible renal cell carcinoma, encourage continued outpatient workup and assessment. #5. Mild Renal Insufficiency on Chronic Kidney Disease Stage III, unclear subtype per GFR trend: Admission BUN/Cr 48/1.56, GFR 34, baseline renal function 1.0-1. 3 primarily, repeat BMP in AM. #6. Mild hyperbilirubinemia, unclear etiology: Admission total bilirubin 1.20, AST/ALT 07/02, alk phos 42, will continue judicious hydration and treatment above as noted #1 and repeat CMP in AM. #7. HFpEF: Holding aspirin therapy, will continue statin, not on beta-mu nor EROS inhibitor/ARB nor diuretic therapy, continue to closely monitor given IV fluids and PRBC administration as noted above #1. #8. PAF: Patient is not on rhythm or rate agents nor she anticoagulated, holding aspirin therapy given #1, continue to monitor on telemetry. #9. Nonobstructive CAD: Holding aspirin therapy, will continue statin, not on beta-mu nor EROS inhibitor/ARB. #10. History complete heart block: Status post pacemaker placement, encourage continued outpatient follow-up, most recent pacemaker assessment noted 10/17/19 24. #11. History thyroid cancer: Status post partial thyroidectomy, not on any chronic supplementation, encourage continued outpatient follow-up. #12. Chronic COPD/asthma with chronic hypoxic respiratory failure (2L NC): Will maintain on home oxygen supplementation, maintain on ATC budesonide, PRN albuterol, HOB, IS parameters. #13. History of right-sided breast cancer: Unclear type, status postmastectomy, considered in remission, continue patient home anastrozole regimen, encourage continued outpatient follow-up as previously arranged. #14. Obesity: Weight loss and lifestyle changes encouraged. #15. Chronic bilateral lower extremity edema/lymphedema: Will place neck Eros wraps. #16. Hyperlipidemia: We will continue patient on statin therapy. #17. GERD: We will maintain IV PPI drip as noted. #18. History of VTE: Patient previously chronically anticoagulated, not currently on any regimen, continue SCDs. #19. KWABENA: Noncompliant with PAP therapy. #20. DVT prophylaxis: SCDs. #21. CODE status: Patient is unsure if healthcare power of transactional attorney and living will is in place but notes if she needed a decision medically made and was unable she would want her 3 children to all make the decision. Discussed CODE status at length including difference between FULL code, DNR-CCA and DNR-CC status. Following discussions about the differences in these status, requested Full Code status. Advanced Care Planning Face to Face Time: 16 minutes. Charges/Coding Visit Charges Inpatient E&M: 73040 Init Hosp L3 Procedures Hospitalists Procedures: 82972 Advncd Care Plan 30 Min
[2023-11-06 18:29] LABS: Bacteria 0 SEEN /hpf (None Seen); Mucous, Urine 0 SEEN /hpf (<or=2+); Red Blood Cells-Urine 0 SEEN /hpf (0-5); Squamous Epithelial Cells - UA 0 SEEN /hpf (5-10); White Blood Cells 0 SEEN /hpf (0-5)
[2023-11-06 19:01] LABS: Color, Urine Yellow (Yellow); Glucose, Dipstick Normal (Normal); Ketone-Dipstick Negative (Negative); Leukocyte Esterase-Dipstick Negative /ul (Negative); Nitrite-Dipstick Negative (Negative); Occult Blood-Urine Negative /ul (Negative); Protein-Dipstick 30 mg/dl (Negative); Urine Bilirubin Dipstick Negative (Negative); Urine Clarity Clear (Clear); Urine Urobilinogen Normal (Normal)
--- NOTE | 2023-11-06 19:35 | ECHOCS_ITS ---
Reason For Study: Pericardial Effusion on CT Procedure This was a 2D Doppler, Color Flow transthoracic echocardiogram. The study was technically difficult. Contrast injection was performed. Exam performed portable in ICU/CCU. Left Ventricle Normal LV size. Mild concentric left ventricular hypertrophy. The left ventricular ejection fraction is 65 %. Stage 3 diastolic dysfunction. Right Ventricle Normal right ventricle. Atria There is mild biatrial dilatation. Mitral Valve Mild mitral annular calcification. Mild (1+) mitral valve insufficiency. Tricuspid Valve Mild tricuspid valve insufficiency. Right ventricular systolic pressure estimated to be 68 mmHg. Aortic Valve Aortic sclerosis, no stenosis. Mild (1+) aortic valve insufficiency. Pulmonic Valve The pulmonic valve is not well visualized. Trivial pulmonic valve insufficiency. Great Vessels Normal sized aortic root. Pericardium/Pleural Small pericardial effusion. Medication Diluted definity 2ml given slow IV push to enhance endocardial definition. MMode/2D Measurements & Calculations LVIDd: 4.8 cm IVSd: 1.3 cm Ao root diam: 3.4 cm LVIDs: 3.0 cm LVPWd: 0.98 cm LA dimension: 4.7 cm RVDd: 4.7 cm FS: 37.2 % LAV(MOD-bp): 108.1 ml LVAd ap4: 32.4 cm2 SV(MOD-sp4): 71.2 ml LAV(MOD-bp) Indexed: 54.9 ml/m2 LVLd ap4: 7.5 cm LAV(MOD-sp2): 93.5 ml EDV(MOD-sp4): 115.2 ml LAV(MOD-sp4): 102.4 ml EDV(sp4-el): 118.7 ml LVAs ap4: 18.7 cm2 LVLs ap4: 6.7 cm ESV(MOD-sp4): 44.0 ml ESV(sp4-el): 44.2 ml EF(MOD-sp4): 61.8 % EF(sp4-el): 62.8 % SV(sp4-el): 74.5 ml LA A4 area: 27.8 cm2 RA A4 area: 28.3 cm2 Time Measurements MV dec time: 0.26 sec Doppler Measurements & Calculations MV E max matthew: 133.2 cm/sec Lat Peak E' Matthew: 12.1 cm/sec Med Peak E' Matthew: 8.1 cm/sec MV A max matthew: 23.3 cm/sec E/E' lat: 11.0 E/E' med: 16.5 MV E/A: 5.7 MV V2 max: 157.6 cm/sec MV P1/2t max matthew: 159.2 cm/sec Ao V2 max: 132.9 cm/sec MV max P.9 mmHg MV P1/2t: 80.4 msec Ao max P.1 mmHg MV V2 mean: 60.5 cm/sec Ao V2 mean: 93.0 cm/sec MV mean P.2 mmHg MV dec slope: 579.6 cm/sec2 Ao mean P.9 mmHg MV V2 VTI: 39.3 cm MVA(P1/2t): 2.7 cm2 Ao V2 VTI: 29.4 cm LV V1 max: 122.1 cm/sec MR max matthew: 479.5 cm/sec PA V2 max: 132.3 cm/sec LV V1 max P.0 mmHg MR max P.0 mmHg PA max PG (full): 3.6 mmHg PA V2 mean: 85.4 cm/sec PA mean PG (full): 1.7 mmHg TR max matthew: 363.0 cm/sec TR max P.7 mmHg ECHO/Echo Complete W/ Contrast Interpretation Summary Mild concentric left ventricular hypertrophy. The left ventricular ejection fraction is 65 %. Stage 3 diastolic dysfunction. Mild (1+) mitral valve insufficiency. Mild tricuspid valve insufficiency. Right ventricular systolic pressure estimated to be 68 mmHg. Mild (1+) aortic valve insufficiency. Small pericardial effusion. Ordering Physician: Arlet Maldonado Referring Physician: Jessica Aguero M.D. Performed By: Mika Marshall RCS
[2023-11-06] MEDS: 0.9% Saline Lock 10 ML Syringe IV ×2 (20:29→23:17)
[2023-11-06] MEDS: Pantoprazole Sodium 80 MG in 0.9% Normal Saline (50mL Bag) 15 ML 420 MG IV BOLUS (20:33)
[2023-11-06] MEDS: Pantoprazole Sodium 80 MG in 0.9% Normal Saline (100mL Bag) 80 ML 10 MG CONT INF (20:35)
[2023-11-06] MEDS: Pravastatin 20 MG Tablet PO (20:36)
[2023-11-06] MEDS: 0.9% Normal Saline (1000mL) 1,000 ML 100 ML IV (23:17)
[2023-11-06 23:21] LABS: Hematocrit 21.9 % (37-47)
[2023-11-06 23:44] LABS: Vitamin B12 1368 pg/mL (211-911)
[2023-11-06 23:46] LABS: Procalcitonin 0.06 ng/mL (0.00-0.09)
[2023-11-06 23:50] LABS: Ferritin 454 ng/mL (8-252); Iron 168 ug/dL (50-170); Iron Binding Capacity,Total 231 ug/dL (250-450); PERCENT IRON SATURATION 72.7 % (15.0-55.0)
[2023-11-07] VITALS (25 sets, daily range): BP systolic 116–143; BP diastolic 48–90; PULSE 60–76; RESP 14–26; TEMP 36.4–36.9; O2SAT 90–100; BMI 31.5; BMI 33.0
[2023-11-07 03:11] LABS: Absolute Lymphocyte Count 0.43 X10^3/uL (0.83-4.51); Eosinophil# 0.01 X10^3/uL; Eosinophils% 0.5 % (0-5); Hemoglobin 6.1 g/dL (12.0-15.0); Lymphocyte # 0.43 X10^3/ul (0.83-4.51); Lymphocyte % 21.4 % (19-41); Mean Corp Hgb Conc 32.1 g/dL (32-36); Mean Corpuscular Hgb 31.3 pg (27.0-32.0); Mean Corpuscular Volume 97.4 fL (81-99); Mean Platelet Vol. 10.4 fl (6.2-12.0); Monocyte# 0.49 X10^3/uL; Monocyte% 24.4 % (0-10); NRBC Flagged by Analyzer 1.5 % (0-5); Neutrophil # 1.02 X10^3/uL (2.7-7.7); Neutrophil % 50.7 % (47-70); POSITIVE DIFFERENTIAL YES; Platelet Count 110 K/mm3 (150-450); RBC Distribution Width CV 18.6 % (11.6-14.6); RBC Distribution Width SD 62.1 fl (35.1-43.9); Red Blood Count 1.95 M/mm3 (4.2-5.4)
[2023-11-07 03:20] LABS: International Normalized Ratio 1.2; Partial Thromboplast Time 28.1 Seconds (24.1-36.2); Prothrombin Time (Protime)PT. 15.4 SECONDS (11.7-14.9)
[2023-11-07 03:26] LABS: Differential Indicated SCAN CRITERIA MET
[2023-11-07 03:59] LABS: AST(SGOT) 12 U/L (15-37); Alanine Aminotransfer ALT/SGPT 10 U/L (13-56); Albumin, Serum 2.6 g/dL (3.2-5.0); Alkaline Phosphatase 32 U/L (45-117); Anion Gap 4 (5-15); BUN 38 mg/dL (7-18); BUN/Creat Ratio 34.9 RATIO (10-20); Calcium,Total 7.6 mg/dL (8.5-10.1); Chloride 106 mmol/L (98-107); Creatinine, Serum 1.09 mg/dL (0.55-1.02); EST Glomerular Filtration Rate 51 mL/min (>60); Est Glom Filt Rate - Afr Amer 62 mL/min (>60); Estimated Creatinine Clearance 45.32 ml/min; Globulin 2.5 g/dL (2.2-4.2); Glucose 145 mg/dL (74-106); Potassium 3.6 mmol/L (3.5-5.1); Protein, Total 5.1 g/dL (6.4-8.2); Sodium Level 144 mmol/L (136-145)
[2023-11-07] MEDS: oxyCODONE 5 MG Tablet PO ×2 (04:00→23:07)
[2023-11-07] MEDS: Acetaminophen 325 MG Tablet 650 MG PO ×2 (04:00→23:07)
[2023-11-07 04:40] LABS: Differential Comment SCANNED
[2023-11-07] MEDS: Pantoprazole Sodium 80 MG in 0.9% Normal Saline (100mL Bag) 80 ML 10 MG CONT INF (05:25)
--- NOTE | 2023-11-07 05:55 | RAD_ITS ---
EXAM: XR CHEST, 1 VIEW CLINICAL INDICATION: Questionable pneumonia Questionable pneumonia TECHNIQUE: Frontal view of the chest. COMPARISON: Chest x-ray 10/05/2023. FINDINGS: LUNGS AND PLEURAL SPACES: There are bilateral pulmonary infiltrates and small bilateral pleural effusions. These findings are worsened and were on the previous study.. This probably represents CHF with pulmonary edema. Overlying pneumonia cannot be excluded. No pneumothorax. HEART: The heart is enlarged. MEDIASTINUM: Central airways and mediastinal contour are unremarkable. BONES/JOINTS: There are multilevel degenerative changes in the visualized spine. No acute fracture. SOFT TISSUES: Unremarkable. VASCULATURE: There is atherosclerotic calcification of the aortic arch. TUBES, LINES AND DEVICES: There is an atrioventricular pacemaker. RAD/Chest 1 View (Portable) IMPRESSION: 1. Bilateral pulmonary infiltrates and pleural effusions, probably representing CHF with pulmonary edema. Cannot exclude overlying pneumonia. 2. Cardiomegaly. Pacemaker. Electronically Signed: Dustin Smyth MD at 5:23 EDT ,
[2023-11-07] MEDS: Budesonide Respules 0.5 MG/2 ML AMPUL.NEB. INHALATION ×2 (07:06→18:59)
--- NOTE | 2023-11-07 07:11 | PN.HOSP_ITS ---
Reason for Visit Reason for Visit: Diagnoses Anemia, unspecified (11/06/23) Subjective Subjective Patient is a 77-year-old lady who was sent to the ED by her oncologist with hemoglobin of 4.9. Patient had apparently denied any black tarry stools prior to. As per ICU nursing staff patient did have some dark stools. Objective Data Objective Data Vital Signs: Vital Signs Temp Pulse Resp BP Pulse Ox O2 Del Method O2 Flow Rate 98.4 F 65 18 124/49 H 100 Nasal Cannula 2 11/07/23 06:35 11/07/23 07:07 11/07/23 07:07 11/07/23 07:00 11/07/23 07:07 11/07/23 07:07 11/07/23 07:07 Oxygen Flow Rate (L/min) 2 Oxygen Delivery Method Nasal Cannula Weight: 90 kg Body Mass Index (BMI) 33.0 Intake & Output: Intake and Output for Last 24 Hours 11/05/23 11/06/23 11/07/23 23:59 23:59 23:59 Intake Total 1237 / 1237 118.33 / 118.33 Balance 1237 / 1237 118.33 / 118.33 Lab / Micro Data 11/07/23 03:00 11/07/23 03:00 Labs: Laboratory Results - last 24 hr 11/06/23 14:25: WBC 2.2 L, RBC 1.52 L, Hgb 5.0 L*, Hct 15.6 L, MCV 102.6 H, MCH 32.9 H, MCHC 32.1, RDW Std Deviation 54.4 H, RDW Coeff of Jenna 15.9 H, Plt Count 137 L, MPV 10.6, Immature Gran % (Auto) 0.900, Neut % (Auto) 58.5, Lymph % (Auto) 18.9 L, [place] % (Auto) 20.7 H, Eos % (Auto) 0.5, Baso % (Auto) 0.5, Absolute Neuts (auto) 1.3 L, Absolute Lymphs (auto) 0.42 L, Nucleated RBC % 1.4, Diff Path Review November, Sodium 138, Potassium 4.2, Chloride 96 L, Carbon Dioxide 38.0 H, Anion Gap 4 L, BUN 48 H, Creatinine 1.56 H, Estim Creat Clear Calc 32.15, Est GFR (MDRD) Af Amer 41 L, Est GFR (MDRD) Non-Af 34 L, BUN/Creati nine Ratio 30.8 H, Glucose 178 H, Calcium 9.1, Total Bilirubin 1.20 H, AST 12 L, ALT 12 L, Alkaline Phosphatase 42 L, Total Protein 6.4, Albumin 3.3, Globulin 3.1, Albumin/Globulin Ratio 1.1, Blood Type A POSITIVE, Antibody Screen NEGATIVE, Crossmatch See Detail 11/06/23 14:25: Crossmatch See Detail 11/06/23 18:21: Urine Color Yellow, Urine Clarity Clear, Urine pH 6.0, Ur Specific Goodman 1.010, Urine Protein 30 H, Urine Glucose (UA) Normal, Urine Ketones Negative, Urine Occult Blood Negative, Urine Nitrite Negative, Urine Bilirubin Negative, Urine Urobilinogen Normal, Ur Leukocyte Esterase Negative, Urine RBC 0 SEEN, Urine WBC 0 SEEN, Ur Squamous Epith Cells 0 SEEN, Urine Bacteria 0 SEEN, Urine Mucus 0 SEEN 11/06/23 23:12: Hgb 7.0 L, Hct 21.9 L, Iron 168, TIBC 231 L, Iron Saturation 72.7 H, Ferritin 454 H, Vitamin B12 1368 H, Folate 10.40, Procalcitonin 0.06 11/07/23 03:00: WBC 2.0 L, RBC 1.95 L, Hgb 6.1 L, Hct 19.0 L, MCV 97.4 D, MCH 31.3, MCHC 32.1, RDW Std Deviation 62.1 H, RDW Coeff of Jenna 18.6 H, Plt Count 110 L, MPV 10.4, Immature Gran % (Auto) 3.000 H, Neut % (Auto) 50.7, Lymph % (Auto) 21.4, [place] % (Auto) 24.4 H, Eos % (Auto) 0.5, Baso % (Auto) 0.0, Absolute Neuts (auto) 1.0 L, Absolute Lymphs (auto) 0.43 L, Nucleated RBC % 1.5, Differential Comment SCANNED, Diff Path Review November, PT 15.4 H, INR 1.2, APTT 28.1, Sodium 144, Potassium 3.6, Chloride 106, Carbon Dioxide 34.0 H, Anion Gap 4 L, BUN 38 H, Creatinine 1.09 H, Estim Creat Clear Calc 45.32, Est GFR (MDRD) Af Amer 62, Est GFR (MDRD) Non-Af 51 L, BUN/Creatinine Ratio 34.9 H, Glu cose 145 H, Calcium 7.6 L, Total Bilirubin 1.10 H, AST 12 L, ALT 10 L, Alkaline Phosphatase 32 L, Total Protein 5.1 L, Albumin 2.6 L, Globulin 2.5, Albumin/Globulin Ratio 1.0 Micro: Microbiology 11/06/23 18:21 Urine, Clean Catch Legionella Antigen - Final 11/06/23 18:21 Urine, Clean Catch Streptococcus pneumoniae Antigen (M - Final 11/06/23 14:55 Stool Stool Occult Blood (СВЕТЛАНА) - Final Occult Blood Positive Radiography Diagnostic Testing: Radiology Impression Abdomen/Pelvis CTA 11/06/23 15:18 IMPRESSION: Bibasilar consolidations and pleural effusions consistent with pneumonia. Cardiomegaly with pericardial effusion. No acute findings in the abdomen or pelvis. Stable 2.8 cm hyperdense right renal cortical cystic lesion. This is shown to be a solid mass by prior renal ultrasound 09/02/2023 and should be considered as a renal cell carcinoma until proven otherwise. Suggest six-month follow-up for stability.. Electronically Signed: Josué Mckinney MD at 16:42 EDT , Chest X-Ray 11/07/23 05:55 IMPRESSION: 1. Bilateral pulmonary infiltrates and pleural effusions, probably representing CHF with pulmonary edema. Cannot exclude overlying pneumonia. 2. Cardiomegaly. Pacemaker. Electronically Signed: Dustin Smyth MD at 5:23 EDT , Physical Exam Narrative GENERAL: cooperative HEENT: Atraumatic; normocephalic EYES; Anicteric, Normal Conjunctiva NECK; supple, normal thyroid, RESPIRATORY: Diminished to auscultation CARDIOVASCULAR: Regular S1 S2, GI: soft, normoactive bowel sounds, : No Renal angle tenderness; EXTREMITIES: No edema, no clubbing, MUSCULOSKELETAL: no muscle wasting NEURO: Awake; no lateralizing signs. SKIN: No Rash PSYCH; Flat affect Assessment & Plan Assessment/Plan (1) Acute anemia: PLAN: Plan Patient is a 77-year-old lady who was sent to the ED by her oncologist with hemoglobin of 4.9. Patient had apparently denied any black tarry stools prior to. As per ICU nursing staff patient did have some dark stools. 1. Acute gastrointestinal bleed ? Patient started on Protonix admitted to the intensive care unit patient was typed and crossmatched and transfused. Patient has been seen in consultation by GI plans for patient to undergo EGD ?Patient had previously undergone EGD and colonoscopy on 09/03/2023 colonoscopy results Preparation of the colon was fair. - Hemorrhoids found on perianal exam. - External and internal hemorrhoids. - Diverticulosis in the recto-sigmoid colon, in the sigmoid colon, in the descending colon and at the splenic flexure. - Segmental moderate inflammation was found in the cecum secondary to colitis. Biopsied. - Three bleeding colonic angiodysplastic lesions. Treated with a heater probe. - Four 1 to 2 mm polyps in the transverse colon and in the cecum, removed with a hot snare. Resected and retrieved. EGD results - Normal esophagus. - Large hiatal hernia. - Non-bleeding gastric ulcer with pigmented material. Treated with a heater probe. - No gross lesions in the second portion of the duodenum. - Non-bleeding duodenal diverticulum. - No specimens collected. Recommendations : - [facility] care. - Advance diet as tolerated. - Continue present medications. 2. Anemia secondary to acute blood loss anemia ? Plan is for patient to undergo endoscopic evaluation subsequent management as Above 3. History of right breast cancer ? Status postmastectomy currently on anastrozole 4. Essential hypertension ? Patient blood pressure remained stable 5. Dyslipidemia As per history currently not on any statin therapy 6. Coronary artery disease ? Previous PCI with stents 7. Conduction system disorder ? Status post pacemaker placement 8. Paroxysmal atrial fibrillation ? Status post radiofrequency ablation. Patient was previously on apixaban discontinued given her severe anemia 9. History of thyroid cancer ? Status post thyroidectomy has since remained in remission 10. Class I obesity with BMI of 33.0 ? Complicating care weight loss advised 11. Chronic congestive heart failure with preserved ejection fraction ? Patient remains euvolemic 12. 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 Currently stable bronchodilator treatment as needed 13. GERD ? Patient is on PPI 14. Chronic hypoxic respiratory failure -patient is on baseline home oxygen 2 L flow per minute 15. Obstructive sleep apnea ? Consistent use of PAP therapy encouraged 16. Right kidney mass ? Suspected to be secondary to renal cell carcinoma. Patient has been referred to [facility] by his oncologist 17. DVT prophylaxis ? Bilateral SCDs Time spent in the patient's overall evaluation,decision-making process, review of diagnostic data, adjustment of management, discussion with other providers, nursing nursing and ancillary staff involved in patient's care documentation, 52 Minutes Charges/Coding Visit Charges Inpatient E&M: 41852 [facility] L[facility]
[2023-11-07 09:51] LABS: Pathologist Review Reviewed
[2023-11-07 09:55] LABS: Pathologist Review Reviewed
--- NOTE | 2023-11-07 10:06 | ONC.CONSULT ---
Assessment & Plan Assessment/Plan (1) Pancytopenia: Status: Chronic Code(s): D61.818 - Other pancytopenia Plan: Patient has intermittent fluctuating mild leukopenia/neutropenia (most pronounced during acute illnesses) and mild fluctuating chronic thrombocytopenia (over 100 K). The predominant cytopenia is severe recurring anemia. Anemia appears to be chronic at baseline with a subacute?insidious/chronic worsening (November 06, 2023 hemoglobin of 4.9 in absence of overt external blood loss and shock) and with immune hemolysis ruled out most consistent with multiple factors including 1. Chronic GI blood loss. 2. Anemia of chronic disease including chronic with acute flares of renal failure, anemia of malignancy (she has a right kidney mass most likely malignant) multiple chronic medical problems and polypharmacy. 3. The primary bone marrow disease such as MDS will need a bone marrow aspirate and biopsy to rule out or confirm. Discussed with patient and she is consenting. Order placed for procedure hopefully during current hospital stay on November 08, 2023 if possible and follow-up 2 weeks after bone marrow biopsy (2) Iron deficiency anemia due to chronic blood loss: Status: Chronic Code(s): D50.0 - Iron deficiency anemia secondary to blood loss (chronic) Plan: She has received oral maintenance and IV as needed iron on multiple occasions. Defer to GI (3) B12 deficiency anemia: Status: Chronic Code(s): D51.9 - Vitamin B12 deficiency anemia, unspecified Qualifiers: Vitamin B12 deficiency anemia type: unspecified B12 deficiency Qualified Code(s): D51.9 - Vitamin B12 deficiency anemia, unspecified Plan: Diagnosed 2023 she is now on long-term maintenance by injection and level has (4) Multiple lung nodules: Status: Chronic Code(s): R91.8 - Other nonspecific abnormal finding of lung field Plan: Incidental finding on CT chest 2023 subcentimeter indeterminate will need follow-up (5) Right kidney mass: Status: Chronic Code(s): N28.89 - Other specified disorders of kidney and ureter Plan: Incidental finding on CT scan of the abdomen 2023 during an acute illness. There is no significant hematuria and asymptomatic. Elective urology at [facility] evaluation has been rescheduled several times due to patient's intercurrent illnesses. Malignancy may be a contributing factor to her anemia of chronic disease but is not an acute illness. She is tentatively scheduled for urology evaluation at [facility] October. If she is unable to make that appointment because of current hospitalization it can be rescheduled again electively. (6) Primary cancer of right female breast: Status: Chronic Code(s): C50.911 - Malignant neoplasm of unspecified site of right female breast Plan: No evidence to suggest metastatic disease, continue adjuvant hormonal therapy with Arimidex. HPI Consult Data Date of Service:: 11/07/23 PCP / Referring Provider: Dr. Jessica Aguero DO Attending: Dr. Ric Alford MD Chief Complaint Chief Complaint: Anemia History of Present Illness History of Present Illness: 77-year-old female with multiple chronic medical problems (see under medical history), including history of right breast cancer status post mastectomy and sentinel lymph node biopsy followed by adjuvant chemotherapy (Taxotere and Cytoxan November through February 2018) and has been on adjuvant hormonal therapy with Arimidex since November 2017. Over the years she has had recurrent anemia due to recurrent iron deficiency anemia from chronic GI blood loss. In 2023 she was diagnosed with B12 deficiency and started on B12 replacement by injection regularly. She was hospitalized November 06, 2023 when she presented for a regular outpatient follow-up in hematology clinic was noted to be pale and was found to have a hemoglobin of 4 g per DL. She is unaware of any melena, she has noted occasional small bright red blood with the stool that she attributes to hemorrhoids however her eyesight is poor if she is not wearing her glasses which she does not do all the time. She is unaware of any hematuria. In 2023 she was incidentally found to have a solid right kidney mass measuring 2.8 cm in diameter on his CT scan of the abdomen and pelvis that was obtained during an intercurrent illness. She had further staging with a CT of the chest showing nonspecific stable subcentimeter pulmonary nodules and a bone scan showing no evidence for bone metastases. She was referred to [facility] urology department for evaluation of this incidental finding but the appointment had to be rescheduled several times due to intercurrent illnesses and hospitalizations. She is now tentatively scheduled for November 10 for such evaluation. Advanced Directives Power of Tenant Coordinator: No Living Will: Yes [facility] Medical History (Updated 11/07/23 @ 10:[address] Melida Spicer MD) Anemia Asthma Atherosclerotic heart disease of [place] coronary artery without angina pectoris Atrial fibrillation B12 deficiency anemia Bilateral pleural effusion CAD (coronary artery disease) Chemo-induced gastroenteritis Chemotherapy induced nausea and vomiting Chronic pain Constipation COPD (chronic obstructive pulmonary disease) Degenerative joint disease of right hip Depression Educational circumstance Encounter for screening for malignant neoplasm of colon ER+ (estrogen receptor positive status) Essential hypertension GERD (gastroesophageal reflux disease) What Cheer filter in place Heart failure, diastolic, chronic Hemorrhoid HTN (hypertension) Hx of deep vein thrombophlebitis of lower extremity Hx of hemorrhoids Hyperlipidemia Insomnia Iron deficiency anemia due to chronic blood loss Lumbar spondylosis Multiple lung nodules Obesity Obstructive sleep apnea Osteoarthritis Osteoporosis Pancytopenia Paroxysmal atrial fibrillation Personal history of pulmonary embolism port placement PORT REMOVAL 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[id number] bones 11/25/20 [History Last Taken 08/29/23] pravastatin 20 mg tablet 20 mg PO QHS CHOLESTEROL 04/28/21 [History Last Taken 08/31/23] acetaminophen 650 mg tablet,extended release 650 mg PO BID pain 06/17/22 [History Last Taken 08/31/23] hydrocodone-acetaminophen 5-325mg 5mg-325mg 1 tab PO BID PRN Pain 3 days #6 tabs 06/25/22 [Rx Last Taken 08/31/23] anastrozole 1 mg tablet 1 mg PO DAILY breast cancer #90 tabs 03/13/23 [Rx Last Taken Unknown] pantoprazole 40 mg tablet,delayed release 40 mg PO DAILY #60 tabs 09/04/23 [Rx Last Taken Unknown] ondansetron 4 mg disintegrating tablet 4 mg PO Q6H PRN nausea and vomiting #20 tabs 10/06/23 [Rx Last Taken Unknown] Injection #1 ea 10/23/23 [Rx Last Taken Unknown] cyanocobalamin (vitamin B-12) 1,000 mcg/mL injection kit 1,000 mcg subcut QMONTH #12 ea 10/23/23 [Rx Last Taken Unknown] Allergy/AdvReac Type Severity Reaction Status Date / Time niacin Allergy Intermediate I DON'T Verified 11/06/23 13:55 REMEMBER, I CAN'T TAKE IT bee venom protein (honey bee) Allergy Swelling Verified 11/06/23 13:55 Family History Brother Diabetes Heart disease Sister Breast cancer Mother Cancer brain and bone mets Aunt Breast cancer Grandmother Cancer Surgical History History of appendectomy History of cholecystectomy History of incisional hernia repair History of radiofrequency ablation procedure for cardiac arrhythmia (~05/25/22) Hx of atrioventricular node ablation Hx of mastectomy S/P carpal tunnel release S/P cataract extraction S/P hysterectomy S/P lumbar discectomy S/P partial thyroidectomy S/P revision of total knee S/P right breast biopsy S/P total knee replacement Social History household members: none Smoking Status: Never smoker alcohol intake: never substance use type: does not use caffeine: No ROS Constitutional Constitutional: Reports fatigue Cardiovascular Cardiovascular: Reports dyspnea and edema Respiratory/Chest Respiratory/Chest: Denies hemoptysis Gastrointestinal Gastrointestinal: Reports hematochezia and hemorrhoids; Denies change in bowel habits, dysphagia or melena Genitourinary Genitourinary: Reports change in urinary stream; Denies hematuria Musculoskeletal Musculoskeletal: Reports joint pain Integumentary Integumentary: Reports other Details: Sacral sore Neurologic Neurologic: Denies focal weakness Hematologic/Lymphatic Hematologic/Lymphatic: Reports easy bruising Physical Exam Const alert General Appearance: ill appearing Positive for chronically Nutritional Appearance: obese Vital Signs Temperature 98.0 F 11/07/23 09:28 Temperature Source Temporal 11/07/23 09:28 Pulse Rate 65 11/07/23 10:00 Pulse Strength Weak (1+) 11/07/23 09:19 Respiratory Rate 18 11/07/23 10:00 Respiratory Effort Normal, Non-Labored 11/07/23 03:44 Respiratory Depth Normal 11/07/23 03:44 Respiratory Pattern Normal 11/07/23 07:07 Blood Pressure 138/52 H 11/07/23 10:00 Blood Pressure Mean 80 11/07/23 10:00 Blood Pressure Source Monitor 11/07/23 10:00 Blood Pressure Position Semi-Fowlers 11/07/23 10:00 Blood Pressure Location Left Arm 11/07/23 10:00 Pulse Ox 94 11/07/23 10:00 Oxygen Delivery Method Nasal Cannula 11/07/23 10:00 Oxygen Flow Rate (L/min) 3 11/07/23 10:00 Laboratory Results - last 24 hr 11/06/23 14:25: WBC 2.2 L, RBC 1.52 L, Hgb 5.0 L*, Hct 15.6 L, MCV 102.6 H, MCH 32.9 H, MCHC 32.1, RDW Std Deviation 54.4 H, RDW Coeff of Jenna 15.9 H, Plt Count 137 L, MPV 10.6, Immature Gran % (Auto) 0.900, Neut % (Auto) 58.5, Lymph % (Auto) 18.9 L, [place] % (Auto) 20.7 H, Eos % (Auto) 0.5, Baso % (Auto) 0.5, Absolute Neuts (auto) 1.3 L, Absolute Lymphs (auto) 0.42 L, Nucleated RBC % 1.4, Diff Path Review Reviewed, Sodium 138, Potassium 4.2, Chloride 96 L, Carbon Dioxide 38.0 H, Anion Gap 4 L, BUN 48 H, Creatinine 1.56 H, Estim Creat Clear Calc 32.15, Est GFR (MDRD) Af Amer 41 L, Est GFR (MDRD) Non-Af 34 L, BUN/Creatinine Ratio 30.8 H, Glucose 178 H, Calcium 9.1, Total Bilirubin 1.20 H, AST 12 L, ALT 12 L, Alkaline Phosphatase 42 L, Total Protein 6.4, Albumin 3.3, Globulin 3.1, Albumin/Globulin Ratio 1.1, Blood Type A POSITIVE, Antibody Screen NEGATIVE, Crossmatch See Detail 11/06/23 14:25: Crossmatch See Detail 11/06/23 18:21: Urine Color Yellow, Urine Clarity Clear, Urine pH 6.0, Ur Specific [place] 1.010, Urine Protein 30 H, Urine Glucose (UA) Normal, Urine Ketones Negative, Urine Occult Blood Negative, Urine Nitrite Negative, Urine Bilirubin Negative, Urine Urobilinogen Normal, Ur Leukocyte Esterase Negative, Urine RBC 0 SEEN, Urine WBC 0 SEEN, Ur Squamous Epith Cells 0 SEEN, Urine Bacteria 0 SEEN, Urine Mucus 0 SEEN 11/06/23 23:12: Hgb 7.0 L, Hct 21.9 L, Iron 168, TIBC 231 L, Iron Saturation 72.7 H, Ferritin 454 H, Vitamin B12 1368 H, Folate 10.40, Procalcitonin 0.06 11/07/23 03:00: WBC 2.0 L, RBC 1.95 L, Hgb 6.1 L, Hct 19.0 L, MCV 97.4 D, MCH 31.3, MCHC 32.1, RDW Std Deviation 62.1 H, RDW Coeff of [place] 18.6 H, Plt Count 110 L, MPV 10.4, Immature Gran % (Auto) 3.000 H, Neut % (Auto) 50.7, Lymph % (Auto) 21.4, [place] % (Auto) 24.4 H, Eos % (Auto) 0.5, Baso % (Auto) 0.0, Absolute Neuts (auto) 1.0 L, Absolute Lymphs (auto) 0.43 L, Nucleated RBC % 1.5, Differential Comment SCANNED, Diff Path Review Reviewed, PT 15.4 H, INR 1.2, APTT 28.1, Sodium 144, Potassium 3.6, Chloride 106, Carbon Dioxide 34.0 H, Anion Gap 4 L, BUN 38 H, Creatinine 1.09 H, Estim Creat Clear Calc 45.32, Est GFR (MDRD) Af Amer 62, Est GFR (MDRD) Non-Af 51 L, BUN/Creatinine Ratio 34.9 H, Glucose 145 H, Calcium 7.6 L, Total Bilirubin 1.10 H, AST 12 L, ALT 10 L, Alkaline Phosphatase 32 L, Total Protein 5.1 L, Albumin 2.6 L, Globulin 2.5, Albumin/Globulin Ratio 1.0 Direct Sherwin test November 06, 2023 negative. Reticulocyte count November 06, 2023 2.7. Laboratory Tests 08/11/20 08/11/20 08/11/20 12:53 12:53 12:53 WBC Hgb 11.8 L Plt Count Absolute Neuts (auto) Iron Saturation 22.9 Ferritin 69 Vitamin B12 09/19/20 11/16/20 11/16/20 16:27 14:00 14:00 WBC Hgb 13.4 12.5 Plt Count Absolute Neuts (auto) Iron Saturation 27.0 Ferritin Vitamin B12 11/16/20 11/25/20 11/26/20 14:00 15:15 02:43 WBC Hgb 11.7 L 10.5 L Plt Count Absolute Neuts (auto) Iron Saturation Ferritin 63 Vitamin B12 02/06/21 02/07/21 05/19/21 19:15 01:18 13:00 WBC Hgb 12.0 11.4 L 13.1 Plt Count Absolute Neuts (auto) Iron Saturation Ferritin Vitamin B12 07/07/21 07/09/21 07/11/21 13:34 11:14 12:05 WBC Hgb 11.6 L 12.6 12.6 Plt Count Absolute Neuts (auto) Iron Saturation Ferritin Vitamin B12 07/17/21 07/17/21 07/26/21 12:45 12:45 19:57 WBC 8.6 Hgb 12.2 12.3 Plt Count Absolute Neuts (auto) Iron Saturation Ferritin Vitamin B12 07/26/21 07/27/21 07/28/21 19:57 07:21 07:40 WBC 8.3 Hgb 10.7 L 12.2 Plt Count Absolute Neuts (auto) Iron Saturation Ferritin Vitamin B12 07/29/21 08/01/21 08/04/21 05:58 06:03 17:17 WBC Hgb 12.6 11.2 L 11.4 L Plt Count Absolute Neuts (auto) Iron Saturation Ferritin Vitamin B12 08/05/21 08/06/21 09/12/21 08:05 07:19 14:01 WBC Hgb 11.2 L 10.2 L 11.6 L Plt Count Absolute Neuts (auto) Iron Saturation Ferritin Vitamin B12 09/12/21 11/23/21 01/20/22 14:01 10:47 23:45 WBC Hgb 12.7 11.4 L Plt Count Absolute Neuts (auto) Iron Saturation 21.8 22.1 Ferritin 126 42 Vitamin B12 05/31/22 06/16/22 06/19/22 13:45 21:20 05:07 WBC Hgb 12.2 12.0 10.1 L Plt Count Absolute Neuts (auto) Iron Saturation Ferritin Vitamin B12 06/20/22 06/24/22 06/25/22 06:05 05:15 05:15 WBC Hgb 9.7 L 10.7 L 10.8 L Plt Count Absolute Neuts (auto) Iron Saturation Ferritin Vitamin B12 06/25/22 08/09/22 08/09/22 05:15 12:17 12:17 WBC Hgb 12.1 Plt Count 231 Absolute Neuts (auto) Iron Saturation 18.7 Ferritin Vitamin B12 324 08/09/22 08/09/22 08/09/22 12:17 12:17 12:17 WBC 6.5 Hgb Plt Count 209 Absolute Neuts (auto) 4.2 Iron Saturation Ferritin Vitamin B12 02/14/23 02/14/23 02/14/23 12:35 12:35 12:35 WBC 4.5 Hgb 11.9 L Plt Count 154 Absolute Neuts (auto) Iron Saturation Ferritin 16 Vitamin B12 05/16/23 05/16/23 05/16/23 14:22 14:22 14:22 WBC 3.5 L Hgb 11.6 L Plt Count 158 Absolute Neuts (auto) Iron Saturation Ferritin Vitamin B12 05/16/23 08/29/23 08/29/23 14:22 14:11 14:11 WBC 2.4 L Hgb 9.3 L Plt Count Absolute Neuts (auto) 1.9 L Iron Saturation Ferritin Vitamin B12 199 L 08/29/23 08/29/23 08/29/23 14:11 14:11 14:11 WBC 2.4 L Hgb 9.3 L Plt Count 121 L Absolute Neuts (auto) Iron Saturation 24.0 Ferritin 89 Vitamin B12 08/29/23 08/29/23 09/01/23 14:11 14:11 14:05 WBC Hgb 8.9 L Plt Count 121 L Absolute Neuts (auto) 1.2 L Iron Saturation Ferritin Vitamin B12 09/01/23 09/01/23 09/01/23 14:05 14:05 14:05 WBC 2.0 L Hgb Plt Count 135 L Absolute Neuts (auto) 0.9 L Iron Saturation Ferritin Vitamin B12 09/01/23 09/01/23 09/01/23 18:16 18:16 18:16 WBC 2.2 L Hgb 8.8 L Plt Count 129 L Absolute Neuts (auto) Iron Saturation Ferritin Vitamin B12 09/01/23 09/01/23 09/01/23 22:02 22:02 22:02 WBC 2.0 L Hgb 7.8 L Plt Count 118 L Absolute Neuts (auto) Iron Saturation Ferritin Vitamin B12 09/02/23 09/02/23 09/02/23 01:43 01:43 01:43 WBC 1.8 L Hgb 7.7 L Plt Count 128 L Absolute Neuts (auto) Iron Saturation Ferritin Vitamin B12 09/02/23 09/02/23 09/02/23 06:50 06:50 06:50 WBC 1.7 L Hgb 7.6 L Plt Count 120 L Absolute Neuts (auto) Iron Saturation Ferritin Vitamin B12 09/02/23 09/03/23 09/03/23 06:50 06:05 06:05 WBC 1.9 L Hgb 8.0 L Plt Count 133 L Absolute Neuts (auto) 0.6 L Iron Saturation Ferritin Vitamin B12 09/03/23 09/04/23 09/04/23 06:05 06:50 06:50 WBC 2.2 L Hgb 7.5 L Plt Count Absolute Neuts (auto) 1.2 L Iron Saturation Ferritin Vitamin B12 09/04/23 09/04/23 09/09/23 06:50 06:50 12:36 WBC Hgb 8.2 L Plt Count 117 L Absolute Neuts (auto) 1.1 L Iron Saturation Ferritin Vitamin B12 09/09/23 09/09/23 09/09/23 12:36 12:36 12:36 WBC 1.6 L Hgb Plt Count 125 L Absolute Neuts (auto) Iron Saturation 32.5 Ferritin 82 Vitamin B12 09/09/23 10/04/23 10/04/23 12:36 01:55 01:55 WBC 2.2 L Hgb 6.2 L Plt Count Absolute Neuts (auto) 0.7 L Iron Saturation Ferritin Vitamin B12 10/04/23 10/04/23 10/05/23 01:55 01:55 03:37 WBC Hgb 7.8 L Plt Count 115 L Absolute Neuts (auto) 0.9 L Iron Saturation Ferritin Vitamin B12 10/05/23 10/05/23 10/05/23 03:37 03:37 03:37 WBC 1.7 L Hgb Plt Count 100 L Absolute Neuts (auto) 0.7 L Iron Saturation Ferritin Vitamin B12 10/06/23 10/06/23 10/06/23 06:00 06:00 06:00 WBC 1.3 L* Hgb 7.7 L Plt Count 101 L Absolute Neuts (auto) Iron Saturation Ferritin Vitamin B12 10/06/23 11/06/23 11/06/23 06:00 12:55 12:55 WBC 2.2 L Hgb 4.9 L* Plt Count Absolute Neuts (auto) 0.5 L Iron Saturation Ferritin Vitamin B12 11/06/23 11/06/23 11/06/23 12:55 12:55 12:55 WBC Hgb Plt Count 138 L Absolute Neuts (auto) 1.2 L Iron Saturation Ferritin 483 H Vitamin B12 11/06/23 11/06/23 11/06/23 14:25 14:25 14:25 WBC 2.2 L Hgb 5.0 L* Plt Count 137 L Absolute Neuts (auto) Iron Saturation Ferritin Vitamin B12 11/06/23 11/06/23 11/06/23 14:25 23:12 23:12 WBC Hgb 7.0 L Plt Count Absolute Neuts (auto) 1.3 L Iron Saturation Ferritin 454 H Vitamin B12 1368 H 11/07/23 11/07/23 11/07/23 03:00 03:00 03:00 WBC 2.0 L Hgb 6.1 L Plt Count 110 L Absolute Neuts (auto) Iron Saturation Ferritin Vitamin B12 11/07/23 03:00 WBC Hgb Plt Count Absolute Neuts (auto) 1.0 L Iron Saturation Ferritin Vitamin B12 Laboratory Tests 08/11/20 08/11/20 08/11/20 12:53 12:53 12:53 WBC Hgb 11.8 L Plt Count Absolute Neuts (auto) Iron Saturation 22.9 Ferritin 69 Vitamin B12 09/19/20 11/16/20 11/16/20 16:27 14:00 14:00 WBC Hgb 13.4 12.5 Plt Count Absolute Neuts (auto) Iron Saturation 27.0 Ferritin Vitamin B12 11/16/20 11/25/20 11/26/20 14:00 15:15 02:43 WBC Hgb 11.7 L 10.5 L Plt Count Absolute Neuts (auto) Iron Saturation Ferritin 63 Vitamin B12 02/06/21 02/07/21 05/19/21 19:15 01:18 13:00 WBC Hgb 12.0 11.4 L 13.1 Plt Count Absolute Neuts (auto) Iron Saturation Ferritin Vitamin B12 07/07/21 07/09/21 07/11/21 13:34 11:14 12:05 WBC Hgb 11.6 L 12.6 12.6 Plt Count Absolute Neuts (auto) Iron Saturation Ferritin Vitamin B12 07/17/21 07/17/21 07/26/21 12:45 12:45 19:57 WBC 8.6 Hgb 12.2 12.3 Plt Count Absolute Neuts (auto) Iron Saturation Ferritin Vitamin B12 07/26/21 07/27/21 07/28/21 19:57 07:21 07:40 WBC 8.3 Hgb 10.7 L 12.2 Plt Count Absolute Neuts (auto) Iron Saturation Ferritin Vitamin B12 07/29/21 08/01/21 08/04/21 05:58 06:03 17:17 WBC Hgb 12.6 11.2 L 11.4 L Plt Count Absolute Neuts (auto) Iron Saturation Ferritin Vitamin B12 08/05/21 08/06/21 09/12/21 08:05 07:19 14:01 WBC Hgb 11.2 L 10.2 L 11.6 L Plt Count Absolute Neuts (auto) Iron Saturation Ferritin Vitamin B12 09/12/21 11/23/21 01/20/22 14:01 10:47 23:45 WBC Hgb 12.7 11.4 L Plt Count Absolute Neuts (auto) Iron Saturation 21.8 22.1 Ferritin 126 42 Vitamin B12 05/31/22 06/16/22 06/19/22 13:45 21:20 05:07 WBC Hgb 12.2 12.0 10.1 L Plt Count Absolute Neuts (auto) Iron Saturation Ferritin Vitamin B12 06/20/22 06/24/22 06/25/22 06:05 05:15 05:15 WBC Hgb 9.7 L 10.7 L 10.8 L Plt Count Absolute Neuts (auto) Iron Saturation Ferritin Vitamin B12 06/25/22 08/09/22 08/09/22 05:15 12:17 12:17 WBC Hgb 12.1 Plt Count 231 Absolute Neuts (auto) Iron Saturation 18.7 Ferritin Vitamin B12 324 08/09/22 08/09/22 08/09/22 12:17 12:17 12:17 WBC 6.5 Hgb Plt Count 209 Absolute Neuts (auto) 4.2 Iron Saturation Ferritin Vitamin B12 02/14/23 02/14/23 02/14/23 12:35 12:35 12:35 WBC 4.5 Hgb 11.9 L Plt Count 154 Absolute Neuts (auto) Iron Saturation Ferritin 16 Vitamin B12 05/16/23 05/16/23 05/16/23 14:22 14:22 14:22 WBC 3.5 L Hgb 11.6 L Plt Count 158 Absolute Neuts (auto) Iron Saturation Ferritin Vitamin B12 05/16/23 08/29/23 08/29/23 14:22 14:11 14:11 WBC 2.4 L Hgb 9.3 L Plt Count Absolute Neuts (auto) 1.9 L Iron Saturation Ferritin Vitamin B12 199 L 08/29/23 08/29/23 08/29/23 14:11 14:11 14:11 WBC 2.4 L Hgb 9.3 L Plt Count 121 L Absolute Neuts (auto) Iron Saturation 24.0 Ferritin 89 Vitamin B12 08/29/23 08/29/23 09/01/23 14:11 14:11 14:05 WBC Hgb 8.9 L Plt Count 121 L Absolute Neuts (auto) 1.2 L Iron Saturation Ferritin Vitamin B12 09/01/23 09/01/23 09/01/23 14:05 14:05 14:05 WBC 2.0 L Hgb Plt Count 135 L Absolute Neuts (auto) 0.9 L Iron Saturation Ferritin Vitamin B12 09/01/23 09/01/23 09/01/23 18:16 18:16 18:16 WBC 2.2 L Hgb 8.8 L Plt Count 129 L Absolute Neuts (auto) Iron Saturation Ferritin Vitamin B12 09/01/23 09/01/23 09/01/23 22:02 22:02 22:02 WBC 2.0 L Hgb 7.8 L Plt Count 118 L Absolute Neuts (auto) Iron Saturation Ferritin Vitamin B12 09/02/23 09/02/23 09/02/23 01:43 01:43 01:43 WBC 1.8 L Hgb 7.7 L Plt Count 128 L Absolute Neuts (auto) Iron Saturation Ferritin Vitamin B12 09/02/23 09/02/23 09/02/23 06:50 06:50 06:50 WBC 1.7 L Hgb 7.6 L Plt Count 120 L Absolute Neuts (auto) Iron Saturation Ferritin Vitamin B12 09/02/23 09/03/23 09/03/23 06:50 06:05 06:05 WBC 1.9 L Hgb 8.0 L Plt Count 133 L Absolute Neuts (auto) 0.6 L Iron Saturation Ferritin Vitamin B12 09/03/23 09/04/23 09/04/23 06:05 06:50 06:50 WBC 2.2 L Hgb 7.5 L Plt Count Absolute Neuts (auto) 1.2 L Iron Saturation Ferritin Vitamin B12 09/04/23 09/04/23 09/09/23 06:50 06:50 12:36 WBC Hgb 8.2 L Plt Count 117 L Absolute Neuts (auto) 1.1 L Iron Saturation Ferritin Vitamin B12 09/09/23 09/09/23 09/09/23 12:36 12:36 12:36 WBC 1.6 L Hgb Plt Count 125 L Absolute Neuts (auto) Iron Saturation 32.5 Ferritin 82 Vitamin B12 09/09/23 10/04/23 10/04/23 12:36 01:55 01:55 WBC 2.2 L Hgb 6.2 L Plt Count Absolute Neuts (auto) 0.7 L Iron Saturation Ferritin Vitamin B12 10/04/23 10/04/23 10/05/23 01:55 01:55 03:37 WBC Hgb 7.8 L Plt Count 115 L Absolute Neuts (auto) 0.9 L Iron Saturation Ferritin Vitamin B12 10/05/23 10/05/23 10/05/23 03:37 03:37 03:37 WBC 1.7 L Hgb Plt Count 100 L Absolute Neuts (auto) 0.7 L Iron Saturation Ferritin Vitamin B12 10/06/23 10/06/23 10/06/23 06:00 06:00 06:00 WBC 1.3 L* Hgb 7.7 L Plt Count 101 L Absolute Neuts (auto) Iron Saturation Ferritin Vitamin B12 10/06/23 11/06/23 11/06/23 06:00 12:55 12:55 WBC 2.2 L Hgb 4.9 L* Plt Count Absolute Neuts (auto) 0.5 L Iron Saturation Ferritin Vitamin B12 11/06/23 11/06/23 11/06/23 12:55 12:55 12:55 WBC Hgb Plt Count 138 L Absolute Neuts (auto) 1.2 L Iron Saturation Ferritin 483 H Vitamin B12 11/06/23 11/06/23 11/06/23 14:25 14:25 14:25 WBC 2.2 L Hgb 5.0 L* Plt Count 137 L Absolute Neuts (auto) Iron Saturation Ferritin Vitamin B12 11/06/23 11/06/23 11/06/23 14:25 23:12 23:12 WBC Hgb 7.0 L Plt Count Absolute Neuts (auto) 1.3 L Iron Saturation Ferritin 454 H Vitamin B12 1368 H 11/07/23 11/07/23 11/07/23 03:00 03:00 03:00 WBC 2.0 L Hgb 6.1 L Plt Count 110 L Absolute Neuts (auto) Iron Saturation Ferritin Vitamin B12 11/07/23 03:00 WBC Hgb Plt Count Absolute Neuts (auto) 1.0 L Iron Saturation Ferritin Vitamin B12 Microbiology 11/06/23 18:21 Urine, Clean Catch Legionella Antigen - Final 11/06/23 18:21 Urine, Clean Catch Streptococcus pneumoniae Antigen (M - Final 11/06/23 14:55 Stool Stool Occult Blood (СВЕТЛАНА) - Final Occult Blood Positive Diagnostic Data Abdomen/Pelvis CTA 11/06/23 15:18 IMPRESSION: Bibasilar consolidations and pleural effusions consistent with pneumonia. Cardiomegaly with pericardial effusion. No acute findings in the abdomen or pelvis. Stable 2.8 cm hyperdense right renal cortical cystic lesion. This is shown to be a solid mass by prior renal ultrasound 09/02/2023 and should be considered as a renal cell carcinoma until proven otherwise. Suggest six-month follow-up for stability.. Electronically Signed: Josué Mckinney MD at 16:42 EDT , Chest X-Ray 11/07/23 05:55 IMPRESSION: 1. Bilateral pulmonary infiltrates and pleural effusions, probably representing CHF with pulmonary edema. Cannot exclude overlying pneumonia. 2. Cardiomegaly. Pacemaker. Electronically Signed: Dustin Smyth MD at 5:23 EDT Reading Location ID and State: [facility] / [place] , Service support ,
--- NOTE | 2023-11-07 10:19 | CASEMGMT ---
MCKENNA SOSA Assessment: MCKENNA SOSA to room to meet with pt for initial transition planning/care coordination assessment. MCKENNA SOSA introduced self and role at [facility], pt voices understanding and consents to assessment. Pt is A&O and answers all questions appropriately at this time. Pt lying in bed in no distress. Care providers, pharmacy, and demographics verified/updated. Admitting Dx: GEORGE GENTILE PCP: Dr Aguero Specialists: Dr Spicer, onc; Dr Bocanegra, pain mgmt; Pt goes to [facility] for eventual nephrectomy or partial nephrectomy. Palliative Care: Pt is active w/[facility] Palliative. Secured e-mail sent to Palliative to notify them pt has been admitted to [facility] . Preferred Pharmacy: Carlos Bocanegra Insurance: [facility], [facility] Prescription Benefit: yes LNOK: Yannick Lopes, son; Israel Lopes, son; dtr, Doris Living Arrangements: Pt lives alone in a mobile home with a ramp to enter. Pt reports she is normally I in ADL's and that her EVARISTO would be present for bathing for safety. She also states that she is usually able to prepare own meals and do laundry when she is at her baseline, but she states for the past 1 1/2 weeks d/t her becoming so weak, her dtr, Doris, and GD have been staying w/her 11/02. Doris has been assisting her to the bathroom (when needed) and getting meals/helping around the house. Transportation: Evaristo or son provide transportation. DME:reachers, cane, rollator, medical alert, nebulizer, pulse ox, O2 through [employer]. Pt has concentrator and portability. HHC/SNF: Pt has been to [facility] in the past and states she will not ever go back to a alf. She states, if SNF is needed at discharge, she would be willing to go to [facility] TCU only, and they are not in-network w/her insurance or unable to accept her, that she will go home. 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 If she is strong enough to return home then she would like to return home and resume w/[facility] HHC and declines wanting list of other HHC agencies. She is agreeable to having PT/OT added. PT/OT evals pending. CM/SW to follow for recommendations. Pt states no further concerns/needs. CM to follow. Advised pt to ask CM if any further question/concerns/needs arise, voices understanding. Plan: TBD. Home w/[facility] HHC or [facility] TCU. Therapy evals pending. Ervin LAMAN RN CM
[2023-11-07 10:34] LABS: Hemoglobin A1c 6.6 % (3.8-5.6)
--- NOTE | 2023-11-07 11:17 | NURSING ---
patient transferred off floor to endo via endo staff
[2023-11-07] MEDS: Lactated Ringers 1,000 ML 15 ML IV (12:30)
--- NOTE | 2023-11-07 13:30 | OP.EGD_ITS ---
Patient Name: Phuong Lopes Procedure Date: 11/07/2023 1:02 PM Date of : 1945 Age: 77 Procedure: Upper GI endoscopy Indications: Iron deficiency anemia Providers: Ryan Ang DO Medicines: Monitored Anesthesia Care Patient Profile: This is a 77 year old female. Refer to note in patient chart for documentation of history and physical. Patient has symptoms of acute nausea. Complications: No immediate complications. Procedure: Pre-Anesthesia Assessment: - Prior to the procedure, a History and Physical was performed, and patient medications and allergies were reviewed. The risks and benefits of the procedure and the sedation options and risks were discussed with the patient. All questions were answered and informed consent was obtained. Patient identification and proposed procedure were verified by the physician. Mental Status Examination: normal. Prophylactic Antibiotics: The patient does not require prophylactic antibiotics. Prior Anticoagulants: The patient has taken no anticoagulant or antiplatelet agents. After reviewing the risks and benefits, the patient was deemed in satisfactory condition to undergo the procedure. The anesthesia plan was to use monitored anesthesia care (MAC). Immediately prior to administration of medications, the patient was re-assessed for adequacy to receive sedatives. The heart rate, respiratory rate, oxygen saturations, blood pressure, adequacy of pulmonary ventilation, and response to care were monitored throughout the procedure. The physical status of the patient was re-assessed after the procedure. After obtaining informed consent, the endoscope was passed under direct vision. Throughout the procedure, the patient's blood pressure, pulse, and oxygen saturations were monitored continuously. The gastroscope was introduced through the mouth, and advanced to the second part of duodenum. The upper GI endoscopy was accomplished without difficulty. The patient tolerated the procedure well. Scope In: 1:17:28 PM Scope Out: 1:21:36 PM Total Procedure Duration Time 0 hours 4 minutes 8 seconds Findings: Small (< 5 mm) varices were found in the lower third of the esophagus. They were 5 mm in largest diameter. A hiatal hernia was present. No other significant abnormalities were identified in a careful examination of the stomach. A 5 mm non-bleeding diverticulum was found in the second portion of the duodenum. Impression: - Small (< 5 mm) esophageal varices. - Hiatal hernia. - Non-bleeding duodenal diverticulum. - No specimens collected. Recommendation: - [facility]. - Resume regular diet. - Continue present medications. Procedure Code(s): --- Professional --- 76574, Esophagogastroduodenoscopy, flexible, transoral; diagnostic, including collection of specimen(s) by brushing or washing, when performed (separate procedure) CPT copyright 2021 [employer]. All rights reserved. The codes documented in this report are preliminary and upon licensed insurance agent review may be revised to meet current compliance requirements. Ryan Ang DO 11/07/2023 1:29:56 PM This report has been signed electronically. Number of Addenda: 0 Note Initiated On: 11/07/2023 1:02 PM
--- NOTE | 2023-11-07 13:30 | OP.CCLET_ITS ---
11/07/2023 Jessica Aguero [address] [place] [address] Re : Upper GI endoscopy procedure for Phuong Lopes Dear Dr. Aguero This procedure was performed on October. My impressions and recommendations are as follows: Impressions : - Small (< 5 mm) esophageal varices. - Hiatal hernia. - Non-bleeding duodenal diverticulum. - No specimens collected. Recommendations : - [facility]. - Resume regular diet. - Continue present medications. My findings are described in the full procedure note, which is enclosed. If I can be of further assistance, please feel free to contact me at . Sincerely, Ryan Ang, 11/07/2023 1:29:56 PM This report has been signed electronically.
[2023-11-07] MEDS: Pravastatin 20 MG Tablet PO (21:31)
[2023-11-07] MEDS: Pantoprazole Sodium 40 MG Tablet PO (21:31)
[2023-11-07] MEDS: MELATONIN 3 MG TABLET PO (23:07)
[2023-11-08] VITALS (17 sets, daily range): BP systolic 127–170; BP diastolic 44–64; PULSE 60–85; RESP 17–30; TEMP 36.4–36.7; O2SAT 88–99; BMI 33.0
--- NOTE | 2023-11-08 | IMM_PTH ---
PATIENT: ALLISON MAHER LOC: PCU U#:[id number] AGE/SX: 77/F ROOM: [facility] RE11/06/[address]: Dr. Ric Alford MD : 1945 BED: 1 DIS: 11/09/2023 SPEC #: [id number] RECD: 11/11/23 11:53 STATUS: SOUT REQ #: [id number] KEAGAN: 11/08/23 00:[address]: Ric Alford DEPT: IMMUNOHISTOCHEMISTRY RECD BY: Sonu Pavon ENTERED: 11/11/23 11:54 SP TYPE: IMMUNO OTHR DR: MD Dr. Jessica Diaz DO Dr. Mansour Isckarus, MD Tissues: B - Bone marrow of iliac crest Procedures: CD20 (add) CD3 (add) CD34 (add) CD45 (add) CD5 (add) CD79A (add) CK8 (add) Pankeratin (initial) PHYSICIAN & [place] [address] SPECIMEN INFORMATION: Tissue Source: B- Bone marrow core Clinical Info: Pancytopenia Specimen Number: [id number] CPT code: 90643,32861v4 METHODOLOGY: Deparaffinized sections of prefer/formalin-fixed tissue or PAP/DQ stained slides are incubated with monoclonal/polyclonal antibodies/oligonucleotide probes. Localization is made via biotin free immunoperoxidase method. Appropriate controls are performed and reacted as expected. Results on target cell population are indicated in the following table: RESULTS: ANTIBODY / CLONE RESULT Block B AE1-3 (AE1/AE3/PCK26) negative CK8 (50aqwjC54) negative CD3 (PS1) positive CD5 (SP10) positive CD20 (L26) positive CD45 (RP2/18) positive CD79a (11E3) positive CD34 (QBEnd-10) negative These tests were developed and their performance characteristics determined by [facility]. They may not have been cleared or approved by the U.S. Food and Drug Administration. The FDA has determined that such clearance or approval is not necessary. The above immunohistochemical/dualISH markers are ordered and reviewed by the Pathologist. INTERPRETATION: B. Bone marrow clot: Negative for metastatic carcinoma. Lymphoid aggregates, polytypic immature, favor benign. Increased number of blasts are not seen. SJ/mr 11/14/2023
[2023-11-08 06:51] LABS: Absolute Lymphocyte Count 0.46 X10^3/uL (0.83-4.51); Absolute Neutrophil Count 1.8 X10^3/uL (2.0-7.7); Basophil# 0.01 X10^3/uL; Basophil% 0.3 % (0-1); Eosinophil# 0.02 X10^3/uL; Eosinophils% 0.7 % (0-5); Hematocrit 29.9 % (37-47); Hemoglobin 9.8 g/dL (12.0-15.0); Lymphocyte # 0.46 X10^3/ul (0.83-4.51); Lymphocyte % 15.2 % (19-41); Mean Corp Hgb Conc 32.8 g/dL (32-36); Mean Corpuscular Hgb 31.2 pg (27.0-32.0); Mean Corpuscular Volume 95.2 fL (81-99); Mean Platelet Vol. 10.4 fl (6.2-12.0); Monocyte# 0.66 X10^3/uL; Monocyte% 21.9 % (0-10); Neutrophil # 1.81 X10^3/uL (2.7-7.7); Neutrophil % 59.9 % (47-70); POSITIVE DIFFERENTIAL YES; Platelet Count 116 K/mm3 (150-450); RBC Distribution Width CV 18.3 % (11.6-14.6); RBC Distribution Width SD 58.5 fl (35.1-43.9); Red Blood Count 3.14 M/mm3 (4.2-5.4)
[2023-11-08] MEDS: Budesonide Respules 0.5 MG/2 ML AMPUL.NEB. INHALATION ×2 (07:10→18:55)
[2023-11-08 07:18] LABS: Anion Gap 4 (5-15); BUN 36 mg/dL (7-18); BUN/Creat Ratio 29.8 RATIO (10-20); Chloride 101 mmol/L (98-107); Creatinine, Serum 1.21 mg/dL (0.55-1.02); EST Glomerular Filtration Rate 46 mL/min (>60); Est Glom Filt Rate - Afr Amer 55 mL/min (>60); Glucose 176 mg/dL (74-106); Magnesium 2.4 mg/dL (1.6-2.6); Phosphorus 2.9 mg/dL (2.5-4.9); Sodium Level 141 mmol/L (136-145)
--- NOTE | 2023-11-08 08:28 | PCM.PN.HOSP ---
Reason for Visit Reason for Visit: Diagnoses Malignant neoplasm of unspecified site of right female breast (11/06/23) Malignant neoplasm of unspecified kidney, except renal pelvis (11/06/23) Iron deficiency anemia secondary to blood loss (chronic) (11/06/23) Vitamin B12 deficiency anemia, unspecified (11/06/23) Other pancytopenia (11/06/23) Anemia, unspecified (11/06/23) Acute kidney failure, unspecified (11/06/23) Other specified disorders of kidney and ureter (11/06/23) Other abnormalities of breathing (11/06/23) Other nonspecific abnormal finding of lung field (11/06/23) Subjective Subjective Patient underwent EGD the day prior results as below.. Patient had bone marrow biopsy Objective Data Objective Data Vital Signs: Vital Signs Temp Pulse Resp BP Pulse Ox O2 Del Method O2 Flow Rate 97.6 F L 62 24 H 148/48 H 91 Nasal Cannula 4 11/08/23 03:15 11/08/23 08:25 11/08/23 08:25 11/08/23 08:25 11/08/23 08:25 11/08/23 08:25 11/08/23 08:25 Oxygen Flow Rate (L/min) 4 Oxygen Delivery Method Nasal Cannula Weight: 90.1 kg Body Mass Index (BMI) 33.0 Intake & Output: Intake and Output for Last 24 Hours 11/06/23 11/07/23 11/08/23 23:59 23:59 23:59 Intake Total 1237 / 1237 1245.50 / 1245.50 Output Total 100 / 100 150 / 150 Balance 1237 / 1237 1145.50 / 1145.50 -150 / -150 Lab / Micro Data 11/08/23 06:35 11/08/23 06:35 Labs: Laboratory Results - last 24 hr 11/06/23 14:25: Diff Path Review Reviewed, Crossmatch See Detail 11/07/23 03:00: Diff Path Review Reviewed, Hemoglobin A1c 6.6 H 11/08/23 06:35: WBC 3.0 L, RBC 3.14 L, Hgb 9.8 L, Hct 29.9 L, MCV 95.2, MCH 31.2, MCHC 32.8, RDW Std Deviation 58.5 H, RDW Coeff of Jenna 18.3 H, Plt Count 116 L, MPV 10.4, Immature Gran % (Auto) 2.000 H, Neut % (Auto) 59.9, Lymph % (Auto) 15.[address] L, [place] % (Auto) 21.9 H, Eos % (Auto) 0.7, Baso % (Auto) 0.3, Absolute Neuts (auto) 1.8 L, Absolute Lymphs (auto) 0.46 L, Nucleated RBC % 1.0, Sodium 141, Potassium 4.0, Chloride 101, Carbon Dioxide 36.0 H, Anion Gap 4 L, BUN 36 H, Creatinine 1.21 H, Estim Creat Clear Calc 41.80, Est GFR (MDRD) Af Amer 55 L, Est GFR (MDRD) Non-Af 46 L, BUN/Creatinine Ratio 29.8 H, Glucose 176 H, Calcium 8.0 L, Phosphorus 2.9, Magnesium 2.4 Micro: Microbiology 11/06/23 18:21 Urine, Clean Catch Legionella Antigen - Final 11/06/23 18:21 Urine, Clean Catch Streptococcus pneumoniae Antigen (M - Final 11/06/23 14:55 Stool Stool Occult Blood (СВЕТЛАНА) - Final Occult Blood Positive Radiography Diagnostic Testing: Radiology Impression Echocardiogram 11/06/23 19:35 Interpretation Summary Mild concentric left ventricular hypertrophy. The left ventricular ejection fraction is 65 %. Stage 3 diastolic dysfunction. Mild (1+) mitral valve insufficiency. Mild tricuspid valve insufficiency. Right ventricular systolic pressure estimated to be 68 mmHg. Mild (1+) aortic valve insufficiency. Small pericardial effusion. Ordering Physician: Arlet Maldonado Referring Physician: Jessica Aguero M.D. Performed By: Mika Marshall RCS Physical Exam Narrative GENERAL: cooperative HEENT: Atraumatic; normocephalic EYES; Anicteric, Normal Conjunctiva NECK; supple, normal thyroid, RESPIRATORY: Diminished to auscultation CARDIOVASCULAR: Regular S1 S2, GI: soft, normoactive bowel sounds, : No Renal angle tenderness; EXTREMITIES: No edema, no clubbing, MUSCULOSKELETAL: no muscle wasting NEURO: Awake; no lateralizing signs. SKIN: No Rash PSYCH; Flat affect Assessment & Plan Assessment/Plan (1) Acute anemia: PLAN: Plan Patient is a 77-year-old lady who was sent to the ED by her oncologist with hemoglobin of 4.9. Patient had apparently denied any black tarry stools prior to. As per ICU nursing staff patient did have some dark stools. 1. Acute gastrointestinal bleed ? Patient started on Protonix admitted to the intensive care unit patient was typed and crossmatched and transfused. Patient has been seen in consultation by GI plans for patient to undergo EGD ?Patient had previously undergone EGD and colonoscopy on 09/03/2023 colonoscopy results Preparation of the colon was fair. - Hemorrhoids found on perianal exam. - External and internal hemorrhoids. - Diverticulosis in the recto-sigmoid colon, in the sigmoid colon, in the descending colon and at the splenic flexure. - Segmental moderate inflammation was found in the cecum secondary to colitis. Biopsied. - Three bleeding colonic angiodysplastic lesions. Treated with a heater probe. - Four 1 to 2 mm polyps in the transverse colon and in the cecum, removed with a hot snare. Resected and retrieved. EGD results - Normal esophagus. - Large hiatal hernia. - Non-bleeding gastric ulcer with pigmented material. Treated with a heater probe. - No gross lesions in the second portion of the duodenum. - Non-bleeding duodenal diverticulum. - No specimens collected. Recommendations : - [facility]. - Advance diet as tolerated. - Continue present medications. -11/08/2023; EGD performed on 11/07/2023 for results are as below - Small (< 5 mm) esophageal varices. - Hiatal hernia. - Non-bleeding duodenal diverticulum. - No specimens collected. Recommendations : - [facility]. - Resume regular diet. - Continue present medications. 2. Anemia secondary to acute blood loss anemia ? Plan is for patient to undergo endoscopic evaluation subsequent management as Above ? Patient hemoglobin up to 9.8 following blood transfusions. ? 11/08/[address] Spicer with oncology recommended for patient to undergo bone marrow biopsy which was performed today. 3. History of right breast cancer ? Status postmastectomy currently on anastrozole 4. Essential hypertension ? Patient blood pressure remained stable 5. Dyslipidemia As per history currently not on any statin therapy 6. Coronary artery disease ? Previous PCI with stents 7. Conduction system disorder ? Status post pacemaker placement 8. Paroxysmal atrial fibrillation ? Status post radiofrequency ablation. Patient was previously on apixaban discontinued given her severe anemia 9. History of thyroid cancer ? Status post thyroidectomy has since remained in remission 10. Class I obesity with BMI of 33.0 ? Complicating care weight loss advised 11. Chronic congestive heart failure with preserved ejection fraction ? Patient remains euvolemic 12. 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 Currently stable bronchodilator treatment as needed 13. GERD ? Patient is on PPI 14. Chronic hypoxic respiratory failure -patient is on baseline home oxygen 2 L flow per minute 15. Obstructive sleep apnea ? Consistent use of PAP therapy encouraged 16. Right kidney mass ? Suspected to be secondary to renal cell carcinoma. Patient has been referred to [place] by his oncologist 17. DVT prophylaxis ? Bilateral SCDs 18. Physical deconditioning - Requested for PT OT eval and high school social studies teacher to assist with discharge planning Time spent in the patient's overall evaluation,decision-making process, review of diagnostic data, adjustment of management, discussion with other providers, nursing nursing and ancillary staff involved in patient's care documentation,50 Minutes Charges/Coding Visit Charges Inpatient E&M: [id number] [facility] L3
[2023-11-08] MEDS: Midazolam 2 MG/2 ML Syringe 0.5 MG IV (08:41)
--- NOTE | 2023-11-08 08:54 | CT_ITS ---
PROCEDURE: CT GUIDED bone marrow biopsy and aspiration of the posterior right iliac bone. DATE: November 08, 2023. INDICATION: Female, 77 years old. Pancytopenia. PHYSICIAN: Yared Chan M.D. RADIATION DOSAGE (If Supplied By Facility): CTDIvol = ( 26 ) mGy, DLP = ( 698.54 ) mGycm. Individualized dose optimization techniques were utilized. PROCEDURE: The risks, benefits, and alternatives to the procedure were explained to the patient. The specific risk of hemorrhage requiring further treatment or intervention was detailed and accepted. Follow-up instructions were discussed with the patient as well. Written informed consent was obtained. The patient was brought into the CT suite and placed in the prone position. . An appropriate entry site was identified. The overlying skin was prepped and draped in the usual sterile fashion. 1% lidocaine was administered subcutaneously for local anesthesia. Conscious sedation was performed. The patient received 2 mg of Versed and 50 mcg of fentanyl intravenously. Conscious sedation was started at 9:10 AM and terminated at 927 the patient was independently monitored by the department nurse. Under CT guidance, a bone marrow biopsy and bone marrow aspiration of the posterior right iliac bone were performed utilizing an 11-gauge bone marrow biopsy needle system. The specimens were then placed in the appropriate fluid and transported to the laboratory for analysis. Hemostasis was obtained. The patient tolerated the procedure well without immediate complications. CT/Biopsy/Inj or Needle Placement IMPRESSION: Successful CT guided bone marrow biopsy and aspiration of the posterior right iliac bone, as described above. Conscious sedation protocol was followed. Electronically Signed: Yared Chan MD at 9:55 EDT ,
--- NOTE | 2023-11-08 09:00 | BMB_PTH ---
PATIENT: ALLISON MAHER LOC: [facility] U#:[id number] AGE/SX: 77/F ROOM: [facility] RE11/06/[address]: Dr. Ric Alford MD : 1945 BED: 1 DIS: 11/09/2023 SPEC #: [id number] RECD: 11/08/23 10:03 STATUS: ZEV REQ #: [id number] KEAGAN: 11/08/23 09:[address]: Ric Alford DEPT: BONE MARROW RECD BY: Noemi Brandt ENTERED: 11/08/23 10:03 SP TYPE: BMB OTHR DR: MD Dr. Jessica Diaz DO Dr. Mansour Isckarus, MD Tissues: A - Bone marrow, NOS B - Bone marrow, NOS C - Bone marrow, NOS Procedures: Decalcification bone/plaque Bone Marrow Aspiration Bone Marrow Core Biopsy Iron Stain Bone Marrow HEADER OPERATION: CT guided bone marrow biopsy and aspiration PRE-OP DIAGNOSIS: Pancytopenia TISSUE SUBMITTED: A - Core, B - Clot, C - Smears, and send outs (flow, cytogenetics) BONE MARROW DIAGNOSIS Bone marrow core, clot and aspirate smears: Normocellular marrow with trilineage hematopoiesis. Lymphoid aggregates, polytypic in nature. Periferal blood, pancytopenia. See comment. YADIRA/mr 11/14/2023 COMMENT B. Immunohistochemistry ([id number]) supports the above diagnosis. 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 [facility] no significant immunophenotypic abnormality. No monoclonal B-cell population is detected. No loss or aberrant expression of brothers T cell antigen to suggest a neoplastic T cell process. Myeloblasts with a normal appearing phenotype present 0.4% and no immunophenotypic abnormal myeloid maturation. Plasma cell comprise <1% of the total cell analyzed are polytypic and show no aberrant antigen expression. Complete report is viewable in patient's EMR. MDS panel for FISH is normal. 5q- normal, 7q- normal, 8q- normal, 20q- normal. Cytogenetic studies are pending at this time. Clinical correlation and appropriate follow up are necessary. Case has been reviewed in consultation with Dr. Dominique who concurs with the above diagnosis. IDC:[id number] BONE MARROW STUDY Slides are reviewed. CBC DATE: 11/08/23 WBC 3.0; RBC 3.14; HGB 9.8; HCT 29.9; MCV 95.2; RDW 18.3; PLTS 116,000 SEGS 59.9%; LYMPHS 15.2%; MONOS 21.9%; EOS 0.7%; BASOS 0.3%; Immature granulocytes; 2.0 PERIPHERAL SMEAR: Submitted. RBC: Normocytic anemia. WBC: Leukopenia and neutropenia. The WBC count is compatible to as reported above. PLTS: Mildly decreased BONE MARROW ASPIRATE DIFFERENTIAL: 200 cell count. Blasts % (normal 0-2): 0 Promyelocytes % (normal 1-5): 0 Myelocytes and metamyelocytes % (normal 17-41): 17 Bands and Segs % (normal 15-32): 31 Eos % (normal 1-6): 5 Basos % (normal 0-1): 0 Monocytes % (normal 0-4): 0 Erythroid Precursors % (normal 17-35): 29 Lymphocytes % (normal 7-13): 18 Plasma Cells % (normal 0-2): 0 ASPIRATE FINDINGS: Site: Not specified Aspicular, Hypocellular M/E ratio: 1.8 (Normal 1.5-4.0) Megakaryocytes: Mild dysplastic changes are noted. Micromegakaryocytes and megakaryocyte with disconnected nuclei are noted Erythropoiesis: Normoblastic. Granulopoiesis: Progressive and unremarkable. Comment: Aspirated smears show hemodilution. All submitted smears are examined. CORE BIOPSY FINDINGS: Site: Not specified Adequacy: Adequate Cellularity: 5 to 10% M/E ratio: Within normal limits. Megakaryocytes: Present and adequate in number. Bony trabeculae: Unremarkable. Granulomas: Absent. Lymphoid aggregate: Absent. Atypical infiltrate: Absent. ASPIRATE CLOT FINDINGS: Site: Not specified Marrow particles: Numerous Cellularity: Variable,10 to 15% M/E ratio: Within normal limits. Megakaryocytes: Present and adequate in number. Focal clustering of megakaryocytes is noted. Granulomas: Absent. Lymphoid aggregates: Present. Atypical infiltrates: Absent. Comment: IHC ([id number]) is negative for metastatic carcinoma, lymphoid aggregates are polytypic in nature, favor benign. Increased number of blasts are not seen. SPECIAL STAINS WITH MATCHED CONTROLS: Iron: 1+, atypical or ring sidereal blasts are not seen (blood clot sections) Reticulin: No significant increase of reticulin fibers is noted. PAS: Highlights myeloid cells and megakaryocytes. BONE MARROW GROSS A - Received is a container labeled with the patient's name and designated bone marrow. The specimen consists of a piece of callejas bone measuring 1.5 cm in length and 0.1 cm in diameter. Also present are multiple fragments of blood clot measuring in aggregate 1.5 x 0.3 x 0.1cm. The specimen is totally submitted in one cassette after decalcification. B - Received labeled with the patient's name and designated bone marrow is a specimen that consists of approximately 5 ml of bloody fluid that on filtration yields multiple minute fragments of blood clots measuring in aggregate 2.5 x 1.5 x 0.1 cm. The specimen is totally submitted in one cassette. C - Also received are 10 unstained and 1 peripheral stained slide. The unstained slides are submitted for appropriate staining. Also received are 1 green top tube which are sent to our reference lab for flow, cytogenetics and MDS. YADIRA/ 11/08/2023TC:5 CPT: 11338, 20500, 75374 x2, 42585 x3, 35649 ADDENDUM ADDENDUM ADDENDUM ADDENDUM ADDENDUM ADDENDUM ADDENDUM ADDENDUM ADDENDUM ADDENDUM 11/06/2024 08:24 ADDENDUM 11/06/2024 08:24 ADDENDUM 11/06/2024 08:24 ADDENDUM 11/06/2024 08:24 ADDENDUM 11/06/2024 08:24 [facility] CYTOGENETIC RESULT: 46,XX (20) INTERPRETATION: Normal female karyotype was observed in twenty metaphases analyzed. MDS FISH PANEL: Normal MDS panel Please see complete report in e-chart or EMR
[2023-11-08] MEDS: Midazolam 2 MG/2 ML Syringe IV ×2 (09:10→09:23)
[2023-11-08] MEDS: fentaNYL 100 MCG/2 ML Ampul IV ×2 (09:12→09:18)
[2023-11-08] MEDS: Lidocaine 2% (20 ml mdv) 20 ML Vial INFILT (09:18)
[2023-11-08] MEDS: Pantoprazole Sodium 40 MG Tablet PO ×2 (10:31→21:36)
[2023-11-08] MEDS: oxyCODONE 5 MG Tablet PO ×3 (10:31→21:36)
[2023-11-08] MEDS: Anastrozole 1 MG TABLET PO (10:31)
--- NOTE | 2023-11-08 12:53 | CASEMGMT ---
MCKENNA SOSA updated by hospitalist that patient is medically ready and patient refuses to discharge till Saturday. MCKENNA SOSA in to discuss needs at discharge and anticipated discharge today. Patient states she is concerned that this is her 3rd admission in the last 2 months and she feels she is not ready to go home. MCKENNA SOSA discussed SNF at discharge with patient if she is not able to go home and patient is adamant that she will not go to SNF at discharge. Patient states she would go to [facility]. MCKENNA SOSA explained that TCU does not have any beds available and they do not accept her insurance. Patient states she does not want to go to any other SNFs. Patient states she is worried that her hgb will drop again and she will need to come back to the hospital. Patient states she knows her body and she knows she is not ready to go home till Saturday. MCKENNA SOSA asked patient if her hgb was rechecked and she remained stable if she would feel better about discharging the hospital. Patient agreeable to have hgb recheck but then states she wants it checked Saturday and Saturday before she discharges to home on Saturday. MCKENNA SOSA updated patient that date of discharge would be reevaluated on a daily basis. Patient voiced her concerns again regarding discharging too soon. MCKENNA SOSA updated patient that this RN CM would contact the Patient Advocate regarding her concern. RN IAN updated patient that therapy will be in to see patient to evaluate for recommendations. MCKENNA SOSA called and updated Patient Advocate. MCKENNA SOSA updated hospitalist and states he will order repeat hemoglobin. CM will continue to follow this patient and plan for a safe discharge.
--- NOTE | 2023-11-08 13:46 | CASEMGMT ---
Addendum entered by Joslyn Razo 11/08/23 13:52: Patient declined a list of facilities. Joslyn FATIMA Original Note: SW received a phone call from patient's granddaughter. She stated she spoke with patient and patient is agreeable to go to [facility], where she works. SW met with patient and confirmed she would be agreeable to go to [facility]. SW sent a referral to [facility] via [facility]. Joslyn FATIMA
--- NOTE | 2023-11-08 14:27 | CASEMGMT ---
[facility] accepted patient. They will start pre-cert as soon as SW gets patient's therapy notes to them. Plan: d/c to [facility] pending insurance approval. Joslyn Razo DRYING ROOM SUPERVISORFran FATIMA
[2023-11-08 14:30] LABS: Hemoglobin 9.9 g/dL (12.0-15.0)
--- NOTE | 2023-11-08 15:04 | CASEMGMT ---
ALFONSO sent PT/OT evals to [facility] and asked them to start pre-cert. Plan: d/c to [facility] pending insurance approval. Joslyn Razo MSW KUSHAL
--- NOTE | 2023-11-08 16:27 | CASEMGMT ---
Insurance has approved patient for [facility]. SW [facility]. Patient will go tomorrow per physician. Plan: d/c to [facility] under skilled level of care on a PASRR. Physicians will transport patient. Joslyn FATIMA
[2023-11-08] MEDS: Ondansetron 4 MG/2 ML Vial IV (17:40)
--- NOTE | 2023-11-08 17:47 | PN.GI_ITS ---
Subjective Subjective Patient underwent bone marrow biopsy today. She complains of some mild pain. She is tolerating a diet. She underwent EGD yesterday. Objective Data Objective Data Vital Signs: Vital Signs Temp Pulse Resp BP Pulse Ox O2 Del Method O2 Flow Rate 98.0 F 62 22 H 131/46 H 95 Nasal Cannula 3 11/08/23 10:22 11/08/23 10:22 11/08/23 10:22 11/08/23 10:22 11/08/23 10:22 11/08/23 16:00 11/08/23 16:00 Oxygen Flow Rate (L/min) 3 Oxygen Delivery Method Nasal Cannula Weight: 198 lb 10.184 oz Body Mass Index (BMI) 33.0 Intake & Output: Intake and Output for Last 24 Hours 11/06/23 11/07/23 11/08/23 23:59 23:59 23:59 Intake Total 1237 / 1237 1245.50 / 1245.50 120 / 120 Output Total 100 / 100 150 / 150 Balance 1237 / 1237 1145.50 / 1145.50 -30 / -30 Lab / Micro Data 11/08/23 14:13 11/08/23 06:35 Labs: Laboratory Results - last 24 hr 11/08/23 06:35: WBC 3.0 L, RBC 3.14 L, Hgb 9.8 L, Hct 29.9 L, MCV 95.2, MCH 31.2, MCHC 32.8, RDW Std Deviation 58.5 H, RDW Coeff of Jenna 18.3 H, Plt Count 116 L, MPV 10.4, Immature Gran % (Auto) 2.000 H, Neut % (Auto) 59.9, Lymph % (Auto) 15.2 L, Rains % (Auto) 21.9 H, Eos % (Auto) 0.7, Baso % (Auto) 0.3, Absolute Neuts (auto) 1.8 L, Absolute Lymphs (auto) 0.46 L, Nucleated RBC % 1.0, Sodium 141, Potassium 4.0, Chloride 101, Carbon Dioxide 36.0 H, Anion Gap 4 L, BUN 36 H, Creatinine 1.21 H, Estim Creat Clear Calc 41.80, Est GFR (MDRD) Af Amer 55 L, Est GFR (MDRD) Non-Af 46 L, BUN/Creatinine Ratio 29.8 H, Glucose 176 H, Calcium 8.0 L, Phosphorus 2.9, Magnesium 2.4 11/08/23 14:13: Hgb 9.9 L Micro: Microbiology 11/06/23 18:21 Urine, Clean Catch Legionella Antigen - Final 11/06/23 18:21 Urine, Clean Catch Streptococcus pneumoniae Antigen (M - Final 11/06/23 14:55 Stool Stool Occult Blood (СВЕЛТАНА) - Final Occult Blood Positive Radiography Diagnostic Testing: Radiology Impression Biopsy CT 11/08/23 08:54 IMPRESSION: Successful CT guided bone marrow biopsy and aspiration of the posterior right iliac bone, as described above. Conscious sedation protocol was followed. Electronically Signed: Yared Chan MD at 9:55 EDT , Physical Exam Narrative GENERAL: cooperative HEENT: Atraumatic; normocephalic EYES; Anicteric, Normal Conjunctiva NECK; supple, normal thyroid, RESPIRATORY: Diminished to auscultation CARDIOVASCULAR: Regular S1 S2, GI: soft, normoactive bowel sounds, : No Renal angle tenderness; EXTREMITIES: No edema, no clubbing, MUSCULOSKELETAL: no muscle wasting NEURO: Awake; no lateralizing signs. SKIN: No Rash PSYCH; Flat affect Assessment & Plan Assessment/Plan (1) Severe anemia: (2) Pancytopenia: (3) Renal cell carcinoma: QUALIFIERS: Laterality: unspecified laterality Qualified Code(s): C64.9 - Malignant neoplasm of unspecified kidney, except renal pelvis (4) Respiratory insufficiency: (5) BEREKET (acute kidney injury): PLAN: Plan Acute blood loss anemia * Previous Hg 6.2. Improved to 7.7 after 2 units PRBCs. Today is 5.0 * B12, folate and iron within normal limits. Iron is actually on the high side. * Apixaban held * CTA is negative * She has had bleeding in her GI tract previously when she did not have any symptoms of GI bleeding and her stools are fecal occult positive. She would benefit from an upper endoscopy and if negative we may have to repeat her colonoscopy. She will definitely need a capsule endoscopy as an outpatient. * Pancytopenia * stable * seen by Hematology. Status post bone marrow biopsy. Renal mass * subsequent visit * incidental finding on imaging * Subsequently has seen Dr. Spicer. Concerning for malignancy. * Bone scan 3/[address] showed few scattered pulmonary nodules. Bilateral pleural effusions * noted on CT, * Prior echo showed an EF of 65% . Charges/Coding Visit Charges Inpatient E&M: 60680 Subs Hosp L3
[2023-11-08] MEDS: MELATONIN 3 MG TABLET PO (21:36)
[2023-11-08] MEDS: Pravastatin 20 MG Tablet PO (21:36)
[2023-11-08] MEDS: Acetaminophen 325 MG Tablet 650 MG PO (21:36)
[2023-11-09 03:00] VITALS: BP 156/84; PULSE 64; RESP 18; TEMP 36.2; O2SAT 93
[2023-11-09 05:16] VITALS: BMI 34.2
[2023-11-09] MEDS: Budesonide Respules 0.5 MG/2 ML AMPUL.NEB. INHALATION (07:17)
[2023-11-09 07:18] VITALS: PULSE 62; RESP 16; O2SAT 93
--- NOTE | 2023-11-09 07:21 | PCM.PN.HOSP ---
Reason for Visit Reason for Visit: Diagnoses Malignant neoplasm of unspecified site of right female breast (11/06/23) Malignant neoplasm of unspecified kidney, except renal pelvis (11/06/23) Iron deficiency anemia secondary to blood loss (chronic) (11/06/23) Vitamin B12 deficiency anemia, unspecified (11/06/23) Other pancytopenia (11/06/23) Anemia, unspecified (11/06/23) Acute kidney failure, unspecified (11/06/23) Other specified disorders of kidney and ureter (11/06/23) Other abnormalities of breathing (11/06/23) Other nonspecific abnormal finding of lung field (11/06/23) Subjective Subjective Patient seen underwent bone marrow biopsy the day prior. Patient did agree to being discharged to snf facility Objective Data Objective Data Vital Signs: Vital Signs Temp Pulse Resp BP Pulse Ox O2 Del Method O2 Flow Rate 97.1 F L 62 16 156/84 H 93 Nasal Cannula 3 11/09/23 03:00 11/09/23 07:18 11/09/23 07:18 11/09/23 03:00 11/09/23 07:18 11/09/23 07:18 11/09/23 03:00 Oxygen Flow Rate (L/min) 3 Oxygen Delivery Method Nasal Cannula Weight: 93.259 kg Body Mass Index (BMI) 34.2 Intake & Output: Intake and Output for Last 24 Hours 11/07/23 11/08/23 11/09/23 23:59 23:59 23:59 Intake Total 1245.50 / 1245.50 120 / 120 Output Total 100 / 100 150 / 350 200 / 200 Balance 1145.50 / 1145.50 -30 / -230 -200 / -200 Lab / Micro Data 11/09/23 07:33 11/09/23 07:33 Labs: Laboratory Results - last 24 hr 11/08/23 14:13: Hgb 9.9 L Micro: Microbiology 11/06/23 18:21 Urine, Clean Catch Legionella Antigen - Final 11/06/23 18:21 Urine, Clean Catch Streptococcus pneumoniae Antigen (M - Final 11/06/23 14:55 Stool Stool Occult Blood (СВЕТЛАНА) - Final Occult Blood Positive Radiography Diagnostic Testing: Radiology Impression Biopsy CT 11/08/23 08:54 IMPRESSION: Successful CT guided bone marrow biopsy and aspiration of the posterior right iliac bone, as described above. Conscious sedation protocol was followed. Electronically Signed: Yared Chan MD at 9:55 EDT , Physical Exam Narrative GENERAL: cooperative HEENT: Atraumatic; normocephalic EYES; Anicteric, Normal Conjunctiva NECK; supple, normal thyroid, RESPIRATORY: Diminished to auscultation CARDIOVASCULAR: Regular S1 S2, GI: soft, normoactive bowel sounds, : No Renal angle tenderness; EXTREMITIES: edema, no clubbing, MUSCULOSKELETAL: no muscle wasting NEURO: Awake; no lateralizing signs. SKIN: No Rash PSYCH; Flat affect Assessment & Plan Assessment/Plan (1) Acute anemia: PLAN: Plan Patient is a 77-year-old lady who was sent to the ED by her oncologist with hemoglobin of 4.9. Patient had apparently denied any black tarry stools prior to. As per ICU nursing staff patient did have some dark stools. 1. Acute gastrointestinal bleed ? Patient started on Protonix admitted to the intensive care unit patient was typed and crossmatched and transfused. Patient has been seen in consultation by GI plans for patient to undergo EGD ?Patient had previously undergone EGD and colonoscopy on 09/03/2023 colonoscopy results Preparation of the colon was fair. - Hemorrhoids found on perianal exam. - External and internal hemorrhoids. - Diverticulosis in the recto-sigmoid colon, in the sigmoid colon, in the descending colon and at the splenic flexure. - Segmental moderate inflammation was found in the cecum secondary to colitis. Biopsied. - Three bleeding colonic angiodysplastic lesions. Treated with a heater probe. - Four 1 to 2 mm polyps in the transverse colon and in the cecum, removed with a hot snare. Resected and retrieved. EGD results - Normal esophagus. - Large hiatal hernia. - Non-bleeding gastric ulcer with pigmented material. Treated with a heater probe. - No gross lesions in the second portion of the duodenum. - Non-bleeding duodenal diverticulum. - No specimens collected. Recommendations : - [facility] to [facility] care. - Advance diet as tolerated. - Continue present medications. -11/08/2023; EGD performed on 11/07/2023 for results are as below - Small (< 5 mm) esophageal varices. - Hiatal hernia. - Non-bleeding duodenal diverticulum. - No specimens collected. Recommendations : - [facility] to [facility] for [facility] care. - Resume regular diet. - Continue present medications. 2. Anemia secondary to acute blood loss anemia ? Plan is for patient to undergo endoscopic evaluation subsequent management as Above ? Patient hemoglobin up to 9.8 following blood transfusions. ? 11/08/[address] Spicer with oncology recommended for patient to undergo bone marrow biopsy which was performed today. ? 11/09/2023 patient underwent bone marrow biopsy the day prior. Patient to follow-up with Dr. Spicer within 3 to 5 days for results 3. History of right breast cancer ? Status postmastectomy currently on anastrozole 4. Essential hypertension ? Patient blood pressure remained stable 5. Dyslipidemia As per history currently not on any statin therapy 6. Coronary artery disease ? Previous PCI with stents 7. Conduction system disorder ? Status post pacemaker placement 8. Paroxysmal atrial fibrillation ? Status post radiofrequency ablation. Patient was previously on apixaban discontinued given her severe anemia 9. History of thyroid cancer ? Status post thyroidectomy has since remained in remission 10. Class I obesity with BMI of 33.0 ? Complicating care weight loss advised 11. Chronic congestive heart failure with preserved ejection fraction ? Patient remains euvolemic 12. 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 Currently stable bronchodilator treatment as needed 13. GERD ? Patient is on PPI 14. Chronic hypoxic respiratory failure -patient is on baseline home oxygen 2 L flow per minute 15. Obstructive sleep apnea ? Consistent use of PAP therapy encouraged 16. Right kidney mass ? Suspected to be secondary to renal cell carcinoma. Patient has been referred to [place] by his oncologist 17. DVT prophylaxis ? Bilateral SCDs 18. Physical deconditioning - Requested for PT OT eval and manager social services to assist with discharge planning ? Patient to be discharged to snf facility Time spent in the patient's overall evaluation,decision-making process, review of diagnostic data, adjustment of management, discussion with other providers, nursing nursing and ancillary staff involved in patient's care documentation,50 Minutes
[2023-11-09 07:52] LABS: Absolute Lymphocyte Count 0.35 X10^3/uL (0.83-4.51); Absolute Neutrophil Count 2.2 X10^3/uL (2.0-7.7); Basophil# 0.01 X10^3/uL; Basophil% 0.3 % (0-1); Eosinophil# 0.01 X10^3/uL; Eosinophils% 0.3 % (0-5); Hematocrit 30.1 % (37-47); Hemoglobin 9.4 g/dL (12.0-15.0); Lymphocyte # 0.35 X10^3/ul (0.83-4.51); Lymphocyte % 10.5 % (19-41); Mean Corp Hgb Conc 31.2 g/dL (32-36); Mean Corpuscular Hgb 30.8 pg (27.0-32.0); Mean Corpuscular Volume 98.7 fL (81-99); Mean Platelet Vol. 10.8 fl (6.2-12.0); Monocyte# 0.75 X10^3/uL; Monocyte% 22.5 % (0-10); NRBC Flagged by Analyzer 0.6 % (0-5); Neutrophil # 2.18 X10^3/uL (2.7-7.7); Neutrophil % 65.2 % (47-70); POSITIVE DIFFERENTIAL YES; Platelet Count 127 K/mm3 (150-450); RBC Distribution Width CV 18.1 % (11.6-14.6); RBC Distribution Width SD 59.9 fl (35.1-43.9); Red Blood Count 3.05 M/mm3 (4.2-5.4); White Blood Count 3.3 K/mm3 (4.4-11.0)
[2023-11-09 08:06] LABS: Anion Gap 4 (5-15); BUN 41 mg/dL (7-18); BUN/Creat Ratio 34.7 RATIO (10-20); Chloride 102 mmol/L (98-107); Creatinine, Serum 1.18 mg/dL (0.55-1.02); EST Glomerular Filtration Rate 47 mL/min (>60); Est Glom Filt Rate - Afr Amer 57 mL/min (>60); Estimated Creatinine Clearance 43.64 ml/min; Glucose 169 mg/dL (74-106); Potassium 4.5 mmol/L (3.5-5.1); Sodium Level 143 mmol/L (136-145)
[2023-11-09 08:11] VITALS: BP 137/62; PULSE 67; RESP 18; TEMP 36.6; O2SAT 94
[2023-11-09] MEDS: oxyCODONE 5 MG Tablet PO (08:15)
[2023-11-09] MEDS: Acetaminophen 325 MG Tablet 650 MG PO (08:15)
[2023-11-09] MEDS: Anastrozole 1 MG TABLET PO (08:17)
[2023-11-09] MEDS: Pantoprazole Sodium 40 MG Tablet PO (08:17)
--- NOTE | 2023-11-09 08:53 | TREXTCAR_ITS ---
Diet Diet Order/Speech Therapy: 11/07/23 13:30 Diet: Regular - General Is pt able to select menu?: No Routine Orders/Code Status Code Status: Full Code Therapies Physical Therapy: Eval and Treat Occupational Therapy: Eval and Treat Problem/Diagnosis (1) Severe anemia: Status: Chronic Code(s): D64.9 - Anemia, unspecified Plan Patient is a 77-year-old lady who was sent to the ED by her oncologist with hemoglobin of 4.9. Patient had apparently denied any black tarry stools prior to. As per ICU nursing staff patient did have some dark stools. 1. Acute gastrointestinal bleed ? Patient started on Protonix admitted to the intensive care unit patient was typed and crossmatched and transfused. Patient has been seen in consultation by GI plans for patient to undergo EGD ?Patient had previously undergone EGD and colonoscopy on 09/03/2023 colonoscopy results Preparation of the colon was fair. - Hemorrhoids found on perianal exam. - External and internal hemorrhoids. - Diverticulosis in the recto-sigmoid colon, in the sigmoid colon, in the descending colon and at the splenic flexure. - Segmental moderate inflammation was found in the cecum secondary to colitis. Biopsied. - Three bleeding colonic angiodysplastic lesions. Treated with a heater probe. - Four 1 to 2 mm polyps in the transverse colon and in the cecum, removed with a hot snare. Resected and retrieved. EGD results - Normal esophagus. - Large hiatal hernia. - Non-bleeding gastric ulcer with pigmented material. Treated with a heater probe. - No gross lesions in the second portion of the duodenum. - Non-bleeding duodenal diverticulum. - No specimens collected. Recommendations : - [facility]. - Advance diet as tolerated. - Continue present medications. -11/08/2023; EGD performed on 11/07/2023 for results are as below - Small (< 5 mm) esophageal varices. - Hiatal hernia. - Non-bleeding duodenal diverticulum. - No specimens collected. Recommendations : - [facility]. - Resume regular diet. - Continue present medications. 2. Anemia secondary to acute blood loss anemia ? Plan is for patient to undergo endoscopic evaluation subsequent management as Above ? Patient hemoglobin up to 9.8 following blood transfusions. ? 11/08/[address] Spicer with oncology recommended for patient to undergo bone marrow biopsy which was performed today. ? 11/09/2023 patient underwent bone marrow biopsy the day prior. Patient to follow-up with Dr. Spicer within 3 to 5 days for results 3. History of right breast cancer ? Status postmastectomy currently on anastrozole 4. Essential hypertension ? Patient blood pressure remained stable 5. Dyslipidemia As per history currently not on any statin therapy 6. Coronary artery disease ? Previous PCI with stents 7. Conduction system disorder ? Status post pacemaker placement 8. Paroxysmal atrial fibrillation ? Status post radiofrequency ablation. Patient was previously on apixaban discontinued given her severe anemia 9. History of thyroid cancer ? Status post thyroidectomy has since remained in remission 10. Class I obesity with BMI of 33.0 ? Complicating care weight loss advised 11. Chronic congestive heart failure with preserved ejection fraction ? Patient remains euvolemic 12. 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 Currently stable bronchodilator treatment as needed 13. GERD ? Patient is on PPI 14. Chronic hypoxic respiratory failure -patient is on baseline home oxygen 2 L flow per minute 15. Obstructive sleep apnea ? Consistent use of PAP therapy encouraged 16. Right kidney mass ? Suspected to be secondary to renal cell carcinoma. Patient has been referred to [place] by his oncologist 17. DVT prophylaxis ? Bilateral SCDs 18. Physical deconditioning - Requested for PT OT eval and geriatric social work professor to assist with discharge planning ? Patient to be discharged to [facility] Time spent in the patient's overall evaluation,decision-making process, review of diagnostic data, adjustment of management, discussion with other providers, nursing nursing and ancillary staff involved in patient's care documentation,50 Minutes Allergies/Procedures Done in Hospital Allergies niacin Allergy (Intermediate, Verified 11/06/23 13:55) I DON'T REMEMBER, I CAN'T TAKE IT I CAN'T TAKE IT bee venom protein (honey bee) Allergy (Verified 11/06/23 13:55) Swelling Type of Care/Length of Stay Estimated LOS: Convalescent Care Less Than 30 days Type of Care Needed: Skilled Rehab Potential: Good Prognosis: Good Additional Orders/Day of Discharge Day of Discharge: 11/09/23 Dietary and Speech Recommendations Dietitian Recommendations/Changes: ADAT to Regular diet when medically able to optimize oral intakes. Discharge Plan Admission Admit Date/Time: 11/06/23 17:51 Attending Provider: Ric Alford Primary Care Provider: Jessica Aguero Consulting Providers: Arlet Maldonado; Melida Spicer Instructions Patient Instructions: RAD RN Bone Marrow Aspiration and Biopsy, LEDA RN Proce dural Sedation Discharge Orders/Prescriptions Prescriptions: New acetaminophen 325 mg Tablet 650 mg PO Q4H PRN PRN (Reason: Fever, pain 1-10/10) Qty: 0 0RF albuterol sulfate 2.5 mg /3 mL (0.083 %) Solution For Nebulization 2.5 mg inhalation Q2H PRN PRN (Reason: Dyspnea, wheezing) Qty: 0 0RF budesonide 0.5 mg/2 mL Suspension For Nebulization 0.5 mg inhalation BID.RT Qty: 0 0RF oxycodone 5 mg Tablet 5 mg PO Q4H PRN PRN (Reason: Pain Score 4-10) 3 Days Qty: 14 0RF melatonin 3 mg Tablet 3 mg PO QHS PRN PRN (Reason: Insomnia) Qty: 0 0RF pantoprazole 40 mg Tablet,Delayed Release (Dr/Ec) 40 mg PO BID Qty: 0 0RF Continued calcium citrate-vitamin D3 1 EACH tablet 2 tab PO DAILY Prolia 60 mg/mL Syringe 60 mg SUBCUT .[id number] Patient Comments: MD is changing to IV for next dose pravastatin 20 mg tablet 20 mg PO QHS Patient Comments: TAKE 1 TABLET BY MOUTH EVERY DAY AT BEDTIME ondansetron 4 mg tablet,disintegrating 4 mg PO Q6H PRN (Reason: nausea and vomiting) Qty: 20 0RF anastrozole 1 mg tablet 1 mg PO DAILY Qty: 90 3RF cyanocobalamin (vitamin B-12) 1,000 mcg/mL kit 1,000 mcg subcut QMONTH Qty: 12 0RF (DME) Injection See Rx Instructions .Route .MEDSUPPLY Qty: 1 0RF Rx Instructions: Administer cyanocobalamin (vitamin b12) 1000 mg SQ once every 4 weeks x 12 doses. Discontinued albuterol sulfate 1 PUFF inhaler 2 puff INHALATION Q4H PRN PRN (Reason: Asthma) Patient Comments: copd zolpidem 12.5 MG tablet,ext release multiphase 12.5 mg PO QHS PRN PRN (Reason: Insomnia) acetaminophen 650 mg Tablet Extended Release 650 mg PO BID hydrocodone-acetaminophen 5-325 mg tablet 1 tab PO BID PRN (Reason: Pain) 3 Days Qty: 6 0RF pantoprazole 40 mg tablet,delayed release (DR/EC) 40 mg PO DAILY Qty: 60 1RF Rx Instructions: 1 tablet twice a day for 28 days and then 1 tablet daily thereafter. Referrals / Follow Up: Jessica Aguero DO [Primary Care Provider] - Melida Spicer MD [Med Staff - Active Staff] - 11/25/23 3:30 pm Disposition Disposition (needs filled in before D/C Order can be placed): [facility]
--- NOTE | 2023-11-09 09:00 | PCM.DC.SUM ---
Providers Date of Admission: 11/06/23 Date of Discharge: 11/09/23 Primary Care Physician: Dr. Jessica Aguero, Consultations 11/06/23 19:35 Consult: Gastroenterology Routine Consulting Provider: [facility] Reason for Consult: Anemia, ? GI bleed, + guiac EMERGENT Consult: No Notified: Yes Date Notified: 11/06/23 Time Notified: 19:14 Method of Notification: Verbal Consult: Oncology/Hematology Routine Consulting Provider: Melida Spicer Reason for Consult: Acute on Chronic anemia, pancytopenia EMERGENT Consult: No Notified: Yes Date Notified: 11/06/23 Time Notified: 19:16 Method of Notification: Verbal Reason For Visit: GI BLEED, ABLA Diagnosis Discharge Diagnosis (1) Severe anemia: Status: Chronic Code(s): D64.9 - Anemia, unspecified Plan Patient is a 77-year-old lady who was sent to the ED by her oncologist with hemoglobin of 4.9. Patient had apparently denied any black tarry stools prior to. As per ICU nursing staff patient did have some dark stools. 1. Acute gastrointestinal bleed ? Patient started on Protonix admitted to the intensive care unit patient was typed and crossmatched and transfused. Patient has been seen in consultation by GI plans for patient to undergo EGD ?Patient had previously undergone EGD and colonoscopy on 09/03/2023 colonoscopy results Preparation of the colon was fair. - Hemorrhoids found on perianal exam. - External and internal hemorrhoids. - Diverticulosis in the recto-sigmoid colon, in the sigmoid colon, in the descending colon and at the splenic flexure. - Segmental moderate inflammation was found in the cecum secondary to colitis. Biopsied. - Three bleeding colonic angiodysplastic lesions. Treated with a heater probe. - Four 1 to 2 mm polyps in the transverse colon and in the cecum, removed with a hot snare. Resected and retrieved. EGD results - Normal esophagus. - Large hiatal hernia. - Non-bleeding gastric ulcer with pigmented material. Treated with a heater probe. - No gross lesions in the second portion of the duodenum. - Non-bleeding duodenal diverticulum. - No specimens collected. Recommendations : - Return patient to [facility] for [facility] care. - Advance diet as tolerated. - Continue present medications. -11/08/2023; EGD performed on 11/07/2023 for results are as below - Small (< 5 mm) esophageal varices. - Hiatal hernia. - Non-bleeding duodenal diverticulum. - No specimens collected. Recommendations : - Return patient to [facility] for [facility] care. - Resume regular diet. - Continue present medications. 2. Anemia secondary to acute blood loss anemia ? Plan is for patient to undergo endoscopic evaluation subsequent management as Above ? Patient hemoglobin up to 9.8 following blood transfusions. ? 11/08/[address] Spicer with oncology recommended for patient to undergo bone marrow biopsy which was performed today. ? 11/09/2023 patient underwent bone marrow biopsy the day prior. Patient to follow-up with Dr. Spicer within 3 to 5 days for results 3. History of right breast cancer ? Status postmastectomy currently on anastrozole 4. Essential hypertension ? Patient blood pressure remained stable 5. Dyslipidemia As per history currently not on any statin therapy 6. Coronary artery disease ? Previous PCI with stents 7. Conduction system disorder ? Status post pacemaker placement 8. Paroxysmal atrial fibrillation ? Status post radiofrequency ablation. Patient was previously on apixaban discontinued given her severe anemia 9. History of thyroid cancer ? Status post thyroidectomy has since remained in remission 10. Class I obesity with BMI of 33.0 ? Complicating care weight loss advised 11. Chronic congestive heart failure with preserved ejection fraction ? Patient remains euvolemic 12. 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 Currently stable bronchodilator treatment as needed 13. GERD ? Patient is on PPI 14. Chronic hypoxic respiratory failure -patient is on baseline home oxygen 2 L flow per minute 15. Obstructive sleep apnea ? Consistent use of PAP therapy encouraged 16. Right kidney mass ? Suspected to be secondary to renal cell carcinoma. Patient has been referred to [facility] by his oncologist 17. DVT prophylaxis ? Bilateral SCDs 18. Physical deconditioning - Requested for PT OT eval and social media sr strategy manager to assist with discharge planning ? Patient to be discharged to assisted facility Time spent in the patient's overall evaluation,decision-making process, review of diagnostic data, adjustment of management, discussion with other providers, nursing nursing and ancillary staff involved in patient's care documentation, 35 Minutes Medications at Discharge Home Medications calcium citrate 315 mg calcium-vitamin D3 6.25 mcg (250 unit) tablet 2 tab PO DAILY SUPPLEMENT 10/24/18 denosumab 60 mg/mL subcutaneous syringe (Prolia) 60 mg subcut .[id number] bones 11/25/20 pravastatin 20 mg tablet 20 mg PO QHS CHOLESTEROL 04/28/21 anastrozole 1 mg tablet 1 mg PO DAILY breast cancer #90 tabs 03/13/23 ondansetron 4 mg disintegrating tablet 4 mg PO Q6H PRN nausea and vomiting #20 tabs 10/06/23 Injection #1 ea 10/23/23 cyanocobalamin (vitamin B-12) 1,000 mcg/mL injection kit 1,000 mcg subcut QMONTH #12 ea 10/23/23 acetaminophen 325 mg tablet 650 mg (2 x 325 mg) PO Q4H PRN PRN Fever, pain 1-04/30 #0 tabs 11/09/23 albuterol sulfate 2.5 mg/3 mL (0.083 %) solution for nebulization 2.5 mg (3 mL) inhalation Q2H PRN PRN Dyspnea, wheezing #0 mL 11/09/23 budesonide 0.5 mg/2 mL suspension for nebulization 0.5 mg (2 mL) inhalation BID.RT #0 mL 11/09/23 melatonin 3 mg tablet 3 mg PO QHS PRN PRN Insomnia #0 tabs 11/09/23 oxycodone 5 mg tablet 5 mg PO Q4H PRN PRN Pain Score 4-10 3 days #14 tabs 11/09/23 pantoprazole 40 mg tablet,delayed release 40 mg PO BID #0 tabs 11/09/23 Physical Exam Narrative GENERAL: cooperative HEENT: Atraumatic; normocephalic EYES; Anicteric, Normal Conjunctiva NECK; supple, normal thyroid, RESPIRATORY: Diminished to auscultation CARDIOVASCULAR: Regular S1 S2, GI: soft, normoactive bowel sounds, : No Renal angle tenderness; EXTREMITIES: edema, no clubbing, MUSCULOSKELETAL: no muscle wasting NEURO: Awake; no lateralizing signs. SKIN: No Rash PSYCH; Flat affect Weight / BMI Weight Weight: 93.259 kg Body Mass Index (BMI) 34.2 ABG / Lab / Microbiology Data 11/09/23 07:33 11/09/23 07:33 Laboratory: Laboratory Results - last 24 hr 11/08/23 14:13: Hgb 9.9 L 11/09/23 07:33: WBC 3.3 L, RBC 3.05 L, Hgb 9.4 L, Hct 30.1 L, MCV 98.7, MCH 30.8, MCHC 31.2 L, RDW Std Deviation 59.9 H, RDW Coeff of Jenna 18.1 H, Plt Count 127 L, MPV 10.8, Immature Gran % (Auto) 1.200 H, Neut % (Auto) 65.2, Lymph % (Auto) 10.5 L, [place] % (Auto) 22.5 H, Eos % (Auto) 0.3, Baso % (Auto) 0.3, Absolute Neuts (auto) 2.2, Absolute Lymphs (auto) 0.35 L, Nucleated RBC % 0.6, Sodium 143, Potassium 4.5, Chloride 102, Carbon Dioxide 37.0 H, Anion Gap 4 L, BUN 41 H, Creatinine 1.18 H, Estim Creat Clear Calc 43.64, Est GFR (MDRD) Af Amer 57 L, Est GFR (MDRD) Non-Af 47 L, BUN/Creatinine Ratio 34.7 H, Glucose 169 H, Calcium 8.0 L Microbiology: Microbiology 11/06/23 18:21 Urine, Clean Catch Legionella Antigen - Final 11/06/23 18:21 Urine, Clean Catch Streptococcus pneumoniae Antigen (M - Final 11/06/23 14:55 Stool Stool Occult Blood (СВЕТЛАНА) - Final Occult Blood Positive Radiography Diagnostic Testing: Radiology Impression Biopsy CT 11/08/23 08:54 IMPRESSION: Successful CT guided bone marrow biopsy and aspiration of the posterior right iliac bone, as described above. Conscious sedation protocol was followed. Electronically Signed: Yared Chan MD at 9:55 EDT , D/C Instructions Discharge Diet: No restrictions Discharge Activity: Return to Normal Activity Call your doctor if you observe: Fever of 101 or Higher, Shortness of breath, Fainting spells and Chest pain Meaningful Use Info Meaningful Use Meaningful Use Diagnoses (Choose all that apply): None applicable Ischemic Stroke Statin Dosing Therapy Reference: STATIN DOSE THERAPY REFERENCE: * Patients > 75 years receive moderate or high dose statin therapy. * Patients 75 years or YOUNGER should receive HIGH intensity statin dose unless contraindicated. You will be required to document reason for non-treatment if statin daily dose does not meet guidelines. HIGH DOSE STATIN THERAPY DAILY Atorvastatin > than or = to 40 mg Rosuvastatin > than or = to 20 mg Amlodipine + Atorvastatin > than or = to 2.5/40 mg Ezetimibe + Simvastatin 10/80 mg Simvastatin 80mg Discharge Plan Admission Admit Date/Time: 11/06/23 17:51 Attending Provider: Ric Alford Primary Care Provider: Jessica Aguero Consulting Providers: Arlet Maldonado; Melida Spicer Instructions Patient Instructions: RAD RN Bone Marrow Aspiration and Biopsy, LEDA RN Procedural Sedation Discharge Orders/Prescriptions Prescriptions: New acetaminophen 325 mg Tablet 650 mg PO Q4H PRN PRN (Reason: Fever, pain 1-1010) Qty: 0 0RF albuterol sulfate 2.5 mg /3 mL (0.083 %) Solution For Nebulization 2.5 mg inhalation Q2H PRN PRN (Reason: Dyspnea, wheezing) Qty: 0 0RF budesonide 0.5 mg/2 mL Suspension For Nebulization 0.5 mg inhalation BID.RT Qty: 0 0RF oxycodone 5 mg Tablet 5 mg PO Q4H PRN PRN (Reason: Pain Score 4-10) 3 Days Qty: 14 0RF melatonin 3 mg Tablet 3 mg PO QHS PRN PRN (Reason: Insomnia) Qty: 0 0RF pantoprazole 40 mg Tablet,Delayed Release (Dr/Ec) 40 mg PO BID Qty: 0 0RF Continued calcium citrate-vitamin D3 1 EACH tablet 2 tab PO DAILY Prolia 60 mg/mL Syringe 60 mg SUBCUT .[id number] Patient Comments: MD is changing to IV for next dose pravastatin 20 mg tablet 20 mg PO QHS Patient Comments: TAKE 1 TABLET BY MOUTH EVERY DAY AT BEDTIME ondansetron 4 mg tablet,disintegrating 4 mg PO Q6H PRN (Reason: nausea and vomiting) Qty: 20 0RF anastrozole 1 mg tablet 1 mg PO DAILY Qty: 90 3RF cyanocobalamin (vitamin B-12) 1,000 mcg/mL kit 1,000 mcg subcut QMONTH Qty: 12 0RF (DME) Injection See Rx Instructions .Route .MEDSUPPLY Qty: 1 0RF Rx Instructions: Administer cyanocobalamin (vitamin b12) 1000 mg SQ once every 4 weeks x 12 doses. Discontinued albuterol sulfate 1 PUFF inhaler 2 puff INHALATION Q4H PRN PRN (Reason: Asthma) Patient Comments: copd zolpidem 12.5 MG tablet,ext release multiphase 12.5 mg PO QHS PRN PRN (Reason: Insomnia) acetaminophen 650 mg Tablet Extended Release 650 mg PO BID hydrocodone-acetaminophen 5-325 mg tablet 1 tab PO BID PRN (Reason: Pain) 3 Days Qty: 6 0RF pantoprazole 40 mg tablet,delayed release (DR/EC) 40 mg PO DAILY Qty: 60 1RF Rx Instructions: 1 tablet twice a day for 28 days and then 1 tablet daily thereafter. Referrals / Follow Up: Jessica Aguero DO [Primary Care Provider] - Melida Spicer MD [Med Staff - Active Staff] - 11/25/23 3:30 pm Disposition Disposition (needs filled in before D/C Order can be placed): Custodial Facility Charges/Coding Visit Charges Inpatient E&M: 25891 Disch Hosp >30min
--- NOTE | 2023-11-09 12:28 | NURSING ---
report called to Milly at [facility]
[2023-11-11 05:25] LABS: Bone Marrow Aspiraton SEE PATHOLOGY REPORT
== END 2023-11-09 12:38 | disposition skilled nursing facility (03) | DRG 378 ==
LOC: ED 14:17 → ICU 18:14 → PCU 11-07 14:58
PROVIDERS: Internal Medicine Gastroenterology; Internal Medicine Hematology & Oncology; Admitting Provider Family Medicine; Emergency Provider Student in an Organized Health Care Education/Training Program; PCP Internal Medicine; Visit Provider Internal Medicine
PROC: 0DJ08ZZ Inspection of Upper Intestinal Tract, Via Natural or Artificial Opening Endoscopic (ICD-10-PCS; CPT 43235; principal; 2023-11-07 12:10)
DX: K92.2 Gastrointestinal hemorrhage, unspecified (principal); D62 Acute posthemorrhagic anemia; D61.818 Other pancytopenia; J96.11 Chronic respiratory failure with hypoxia; I13.0 Hypertensive heart and chronic kidney disease with heart failure and stage 1 through stage 4 chronic kidney disease, or unspecified chronic kidney disease; I50.32 Chronic diastolic (congestive) heart failure; C64.1 Malignant neoplasm of right kidney, except renal pelvis; D63.1 Anemia in chronic kidney disease; D51.9 Vitamin B12 deficiency anemia, unspecified; C50.911 Malignant neoplasm of unspecified site of right female breast; D63.0 Anemia in neoplastic disease; I85.00 Esophageal varices without bleeding; N18.30 Chronic kidney disease, stage 3 unspecified; J44.9 Chronic obstructive pulmonary disease, unspecified; I48.0 Paroxysmal atrial fibrillation; E78.00 Pure hypercholesterolemia, unspecified; I25.10 Atherosclerotic heart disease of native coronary artery without angina pectoris; I89.0 Lymphedema, not elsewhere classified; K21.9 Gastro-esophageal reflux disease without esophagitis; G47.33 Obstructive sleep apnea (adult) (pediatric); E80.7 Disorder of bilirubin metabolism, unspecified; K57.10 Diverticulosis of small intestine without perforation or abscess without bleeding; E66.9 Obesity, unspecified; G89.29 Other chronic pain; Z11.52 Encounter for screening for COVID-19; Z68.33 Body mass index [BMI] 33.0-33.9, adult; Z99.81 Dependence on supplemental oxygen; Z79.811 Long term (current) use of aromatase inhibitors; Z79.899 Other long term (current) drug therapy; Z95.0 Presence of cardiac pacemaker; Z91.199 Patient's noncompliance with other medical treatment and regimen due to unspecified reason; Z95.5 Presence of coronary angioplasty implant and graft; R91.8 Other nonspecific abnormal finding of lung field
CPT/HCPCS: 36415; 71045; 74174; 77012; 80048; 80053; 81001; 82274; 82607; 82728; 82746; 83036; 83540; 83550; 83735; 84100; 84145; 85014; 85018; 85025; 85610; 85730; 86850; 86900; 86901; 86920; 86922; 87449; 87811; 88305; 88311; 88313; 88341; 88342; 93005; 93306; 94640; 94668; 97162; 97166; 99156; 99285; J7030; J7120; P9016; Q9957; Q9967; A4216; C8929; J2405; J3490